=== PATIENT | male | born 1955 | race African-American/Black ===

== ENCOUNTER 2019-03-02 04:09 | Inpatient (IN) | payer MEDICARE, OTHER ==
[~2019-03-02] VITALS: Ht 185.4 cm; Wt 86.2 kg
[2019-03-02] MEDS ORDERED: Acetaminophen 500mg (ES) tab ORAL ONE (04:15)
--- NOTE | 2019-03-02 04:15 | NUR ---
ED Nurse Note: Patient was BIBA from [facility] due to fever, pt's temp 100.4 oral at bed side. Patient presented AAO x4, temp 100.4, HR 135, other VSS at this time, skin is warm to touch. Patient non ambulatory, continent, has preassure ulcer on his sacral area. Will continue to monitor.
[2019-03-02 04:16] VITALS: BP 140/90
[2019-03-02] MEDS ORDERED: CLARITIN10 M2 ORAL (04:24)
[2019-03-02] MEDS ORDERED: HYDRALAZINE HCL50 MG ORAL (04:24)
[2019-03-02] MEDS ORDERED: BISACODYL5 MG ORAL (04:24)
[2019-03-02] MEDS ORDERED: ACETAMINOPHEN325 M1 ORAL (04:24)
[2019-03-02] MEDS ORDERED: FLOMAX0.4 MG ORAL (04:24)
[2019-03-02] MEDS ORDERED: DOCUSATE SODIU100 MG ORAL (04:24)
[2019-03-02] MEDS ORDERED: FAMOTIDINE20 MG ORAL (04:24)
[2019-03-02] MEDS ORDERED: MILK OF MA400 MG/51 ORAL (04:24)
[2019-03-02] MEDS ORDERED: LYRICA75 M1 ORAL (04:24)
[2019-03-02] MEDS ORDERED: FLEET ENEMA133 ML RECTAL (04:24)
[2019-03-02] MEDS ORDERED: DUONEB 0.5-3(2.53 ML HHN (04:24)
[2019-03-02] MEDS ORDERED: ZOFRAN 4 MG4 MG/2 ML IV (04:24)
[2019-03-02] MEDS ORDERED: COZAAR50 MG ORAL (04:24)
--- NOTE | 2019-03-02 04:28 | Emergency Room Report ---
History of Present Illness General Chief Complaint: Fever Source: Patient Present Illness HPI This is 63-year-old senior living patient with a history of hypertension COPD. History of cocaine abuse in the past. He is bedbound. He presents with chief complaint of fever, nausea vomiting and diarrhea. Onset tonight. Per senior living note, fever was 104. Denies any medication. Vomiting is nonbloody nonbilious. Diarrhea is watery. Denies any other complaint. Allergies: Coded Allergies: No Known Allergies (Unverified , 03/02/19) Patient History Past Medical History: see triage record, old chart reviewed, HTN, COPD Past Surgical History: other Pertinent Family History: none Social History: Denies: smoking Immunizations: other Reviewed Nursing Documentation: PMH: Agreed; PSxH: Agreed Nursing Documentation-PMH Hx Hypertension: Yes Hx COPD: Yes - emphysema Review of Systems Constitutional: Reports: fever Gastrointestinal: Reports: abdominal pain, diarrhea, nausea, vomiting Physical Exam Vital Signs Date Time Temp Pulse Resp B/P (MAP) Pulse Ox O2 Delivery O2 Flow Rate FiO2 03/02/19 04:04 104.0 138 16 140/90 (107) 94 03/02/19 04:16 Nasal Cannula 2.0 Vitals with fever and tachycardia Sp02 EP Interpretation: reviewed, abnormal General Appearance: alert, mild distress, thin, Chronically Ill Head: normocephalic, atraumatic Eyes: bilateral eye PERRL, bilateral eye EOMI ENT: hearing grossly normal, normal pharynx Neck: full range of motion, supple, no meningismus Respiratory: chest non-tender, decreased breath sounds, rhonchi Cardiovascular #1: regular rate, rhythm, no murmur Gastrointestinal: non tender, no mass, no organomegaly, no bruit, non-distended , abnormal bowel sounds Musculoskeletal: back normal, other - Lower extremity showed some skin breakdown. On the left lower extremity laterally there is a fluctuant area measuring about 10 x 6 cm. He has abrasion to the volar aspect of both calves. Psychiatric: mood/affect normal Procedures Critical Care Time Critical Care Time Critical care is mandated in this patient who presented with severe sepsis. Patient require my urgent intervention to attenuate the risks of embolic collapse which may lead to cardiovascular collapse and . Critical care time is 35 minutes excluding any reportable procedure. Critical care time included evaluation, multiple reevaluation, looking at old charts, interpreting laboratory and diagnostic data, discussing case with patient and family and consultants, and charting. Additional Procedure Procedure Narrative Procedure: Needle aspiration Indication: Large fluctuant mass Description: Area cleaned with chlorhexidine. Local anesthetic 1% lidocaine without epinephrine injected. Using 18-gauge needle I aspirated the fluctuant area. It appeared to be an old liquefied hematoma. I sent this for culture. I aspirated about 100 cc. Patient tolerated procedure without any problem. No Complication. Medical Decision Making Diagnostic Impression: Primary Impression: Sepsis Qualified Codes: A41.9 - Sepsis, unspecified organism; R65.20 - Severe sepsis without septic shock Additional Impressions: Abdominal pain Qualified Codes: R10.84 - Generalized abdominal pain Nausea vomiting and diarrhea Traumatic hematoma of left lower leg with infection Qualified Codes: S80.12XA - Contusion of left lower leg, initial encounter; L08.9 - Local infection of the skin and subcutaneous tissue, unspecified COPD exacerbation Anemia Qualified Codes: D64.9 - Anemia, unspecified HCAP (healthcare-associated pneumonia) Colitis ER Course This patient presents with very high fever with abdominal pain with nausea vomiting diarrhea. He also appeared to have an infected hematoma to his left lower extremity. Chest x-ray shows COPD. CT scan abdomen pelvis pending. I covered him with Zosyn and Levaquin. He was admitted to [facility] last month and had diagnosis of UTI and inflammatory bowel disease. His troponin is intermediate. This may be a demand ischemia. Aspirin was given here. IV fluids given here. Patient felt better. Discussed the case with Dr. Martel for admission. Severe sepsis reevaluation Vital signs: Heart rate 121, pulse ox 97% on 2 L. Blood pressure 155/65 General appearance: Better mentation. Alert and oriented x4 Lungs: Good air movement, rhonchi Cardiovascular: Regular rate and rhythm Abdomen: Soft Extremity: No edema Skin: No mottling Lab Results Impression Labs with leukocytosis and lactic acidosis EKG Diagnostic Results Rate: normal Rhythm: other ST Segments: no acute changes Rhythm Strip Diag. Results EP Interpretation: yes Rate: 110 Rhythm: NSR, no PVC's, no ectopy Chest X-Ray Diagnostic Results Chest X-Ray Diagnostic Results : Chest X-Ray Ordered: Yes # of Views/Limited/Complete: 1 View Indication: Shortness of Breath EP Interpretation: Yes Interpretation: no effusion, no pneumothorax, other - copd Impression: Other - copd Electronically Signed by: Jeremiah Mcelroy MD CT/MRI/US Diagnostic Results CT/MRI/US Diagnostic Results : Imaging Test Ordered: CT abdomen pelvis Impression Read by radiologist. Chest show bibasilar atelectasis/infiltrates and emphysema. Severe diffuse wall thickening of colon. Bilateral hip effusion with chronic arthritic changes. Last Vital Signs Date Time Temp Pulse Resp B/P (MAP) Pulse Ox O2 Delivery O2 Flow Rate FiO2 03/02/19 04:16 104.0 16 140/90 94 03/02/19 04:16 138 Nasal Cannula 2.0 Status: improved Disposition: ADMITTED INPATIENT Condition: Serious Jeremiah Mcelroy MD Mar 02, 2019 04:28
[2019-03-02] MEDS ORDERED: Acetaminophen 650 MG SUPP RECTAL ONE (04:30)
[2019-03-02 04:39] LABS: HEMATOCRIT 32.8 % (42.0-52.0); HEMOGLOBIN 10.8 G/DL (14.2-18.0); MEAN CORPUSCULAR VOLUME 83 FL (80-99); PLATELET COUNT 263 K/UL (150-450); RED BLOOD COUNT 3.94 M/UL (4.70-6.10)
[2019-03-02 04:45] LABS: ANION GAP 12 mmol/L (5-15); BLOOD UREA NITROGEN 12 mg/dL (7-18); CALCIUM 8.7 MG/DL (8.5-10.1); CARBON DIOXIDE 22 MMOL/L (21-32); CHLORIDE 97 MMOL/L (98-107); CREATININE 1.1 MG/DL (0.55-1.30); POTASSIUM 3.6 MMOL/L (3.5-5.1); SODIUM 131 MMOL/L (136-145)
[2019-03-02 04:48] LABS: WHITE BLOOD COUNT 26.5 K/UL (4.8-10.8)
[2019-03-02 05:01] LABS: ALANINE AMINOTRANSFERASE 15 U/L (12-78); ALBUMIN 2.3 G/DL (3.4-5.0); ALBUMIN/GLOBULIN RATIO 0.4 (1.0-2.7); ALKALINE PHOSPHATASE 97 U/L (46-116); ASPARTATE AMINO TRANSFERASE 22 U/L (15-37); CKMB 0.5 NG/ML (0.0-3.6)
[2019-03-02 05:04] LABS: INR 1.2 (0.9-1.1)
[2019-03-02] MEDS ORDERED: Piperacillin/Tazobactam 3.375 GM in NS 110 ML IVPB ONE (05:15)
--- NOTE | 2019-03-02 05:16 | NUR ---
ED Nurse Note: Patient went for CT.
--- NOTE | 2019-03-02 05:40 | NUR ---
ED Nurse Note: Patient is back from CT, no acute disstress noticed.
--- NOTE | 2019-03-02 06:25 | Diagnostic Imaging Report ---
Indication: Abdominal pain Technique: Continuous helical transaxial imaging of the abdomen and pelvis was obtained from the lung bases to the pubic symphysis. No intravenous contrast was administered. Coronal 2-D reformats were also obtained. Automatic Exposure Control was utilized. Total Dose length Product (DLP): 934.[address] Dose Index Volume (CTDIvol): 16.8 mGy Comparison: none Findings: Significant artifact limits evaluation. The lung bases notable for posterior basal atelectasis. Patchy groundglass opacities also noted nonspecific. Trace pericardial fluid demonstrated. No obvious hydronephrosis or stones identified. No obvious free fluid identified. Question of gallstones. Aortoiliac calcifications are present. There is thickening of the wall of the colon especially noted on the right side involving the ascending colon and cecum. Findings suspicious for colitis. Correlate clinically. There is thickening of the wall the urinary bladder. 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 Anasarca noted. IMPRESSION: Limited evaluation due to technical artifacts. Suspected colitis with the thickening of the wall the colon. Correlate clinically. Thickening of the wall the urinary bladder. Correlate for cystitis. Other findings as above. [facility] has communicated the preliminary results to the Emergency Department. Their findings are largely concordant with this report. The CT scanner at [facility] is accredited by the [employer] and the scans are performed using dose optimization techniques as appropriate to a performed exam including Automatic Exposure control.
[2019-03-02 06:29] LABS: APPEARANCE,URINE SLIGHTLY CLOUDY; BILIRUBIN, URINE NEGATIVE (NEGATIVE); GLUCOSE, URINE (UA) NEGATIVE (NEGATIVE); KETONES,URINE 1+ (NEGATIVE); LEUKOCYTE ESTERASE ,URINE 3+ (NEGATIVE); NITRITE,URINE POSITIVE (NEGATIVE); PH,URINE 6 (4.5-8.0); PROTEIN,URINE 2+ (NEGATIVE); UROBILINOGEN,URINE 1 MG/DL (0.0-1.0)
[2019-03-02 06:37] LABS: COLOR,URINE YELLOW
[2019-03-02 06:55] VITALS: BP 126/67
--- NOTE | 2019-03-02 06:55 | NUR ---
ED Nurse Note: Patient was admited to Tele unit due to severe sepsis. Patient was transfered to the unit via gurney, by ACLS protocol, with all belongings. Patient AAO x4, VSS at this time, skin is dry warm to touch. Patient's preassure ulcer (on sacral area) , was taken picture and uploaded in the computer.
--- NOTE | 2019-03-02 07:00 | NUR ---
NURSE NOTES: Recieved report from ANJEL Casper. Pt is SR, stable VS, denies pain.
--- NOTE | 2019-03-02 07:30 | NUR ---
HAND-OFF: Report given to ANJEL Ewing.
[2019-03-02 07:51] VITALS: BP 128/80
--- NOTE | 2019-03-02 07:53 | NUR ---
NURSE NOTES: pt awake alert, no distress. call liht within reach. paged dr Martel for admission orders. awaiting call back received pt with no dressing on sacral area stage 2, dressing applied, hydrogel and optifoam, will monitor.
[2019-03-02] MEDS ORDERED: HYDROcodone/Acetamin 5/325 tab ORAL PRN (08:15)
[2019-03-02] MEDS ORDERED: D5 1/2NS 1,000 ML IV SCH (09:00)
[2019-03-02] MEDS: Cefepime HCl 1 GM in D5W 55 ML IVPB SCH ×2 (10:20→20:30)
[2019-03-02 12:00] VITALS: BP 124/60
--- NOTE | 2019-03-02 12:17 | Consultation ---
History of Present Illness General Chief Complaint: Fever Present Illness HPI 63-year-old with a history of hypertension COPD, halfway resident, cocaine abuse, bedbound presented to ED with chief complaint of fever, nausea vomiting and diarrhea for one day. His fever was 104 in the halfway. He had also vomiting, nonbloody nonbilious. Diarrhea is watery. His troponin was positive and he is admitted to telemetry for further management. Allergies: Coded Allergies: No Known Allergies (Unverified , 03/02/19) Medication History Scheduled Bisacodyl* (Dulcolax*), 10 MG ORAL ONCE, (Reported) Docusate Sodium* (Docusate Sodium*), 100 MG ORAL TWICE A DAY, (Reported) Famotidine* (Pepcid 20mg tablet*), 20 MG ORAL TWICE A DAY, (Reported) Hydralazine Hcl* (Hydralazine Hcl*), 50 MG ORAL EVERY 8 HOURS, (Reported) Loratadine (Claritin), 10 MG ORAL DAILY, (Reported) Losartan Potassium* (Cozaar*), 100 MG ORAL DAILY, (Reported) Magnesium Hydroxide* (Milk Of Magnesia*), 30 ML ORAL PRN, (Reported) Na Phos,M-B/Na Phos,Di-Ba* (Fleet Enema*), 133 ML RECTAL DAILY, (Reported) Pregabalin* (Lyrica*), 50 MG ORAL THREE TIMES A DAY, (Reported) Tamsulosin HCl (Flomax), 0.4 MG ORAL DAILY, (Reported) Scheduled PRN Acetaminophen* (Acetaminophen 325MG Tablet*), 325 MG ORAL Q6H PRN for Pain Scale (3-5), (Reported) Ondansetron* (Zofran*), 4 MG IV Q8H PRN for Nausea & Vomiting, (Reported) Miscellaneous Medications Ipratropium/Albuterol Sulfate (DuoNeb 0.5-3(2.5)mg/3ml), 3 ML HHN, (Reported) Patient History Healthcare decision maker Resuscitation status Advanced Directive on File Past Medical/Surgical History Past Medical/Surgical History: (1) COPD (chronic obstructive pulmonary disease) (2) BPH (benign prostatic hyperplasia) (3) Hypertension (4) Colitis Review of Systems All Other Systems: negative except mentioned in HPI Physical Exam General Appearance: WD/WN Lines, tubes and drains: peripheral HEENT: normocephalic, atraumatic, anicteric Neck: non-tender, normal alignment Respiratory/Chest: chest wall non-tender, lungs clear Cardiovascular/Chest: normal peripheral pulses, normal rate Abdomen: normal bowel sounds, non tender Genitourinary/Rectal: normal genital exam, normal rectal exam Extremities: normal range of motion Skin Exam: normal pigmentation Neurologic: inspector plug seam II-XII grossly normal Last 24 Hour Vital Signs Date Time Temp Pulse Resp B/P (MAP) Pulse Ox O2 Delivery O2 Flow Rate FiO2 03/02/19 08:59 101 03/02/19 07:51 98.2 117 18 128/80 (96) 98 03/02/19 06:55 99.0 105 16 126/67 99 Nasal Cannula 2.0 03/02/19 06:55 99.0 105 16 126/67 99 Nasal Cannula 2.0 03/02/19 05:02 99.0 03/02/19 04:16 104.0 16 140/90 94 03/02/19 04:16 138 16 Nasal Cannula 2.0 03/02/19 04:04 104.0 138 16 140/90 (107) 94 Laboratory Tests Test 03/02/19 04:10 03/02/19 05:45 03/02/19 06:15 03/02/19 11:55 White Blood Count 26.5 K/UL (4.8-10.8) *H Red Blood Count 3.94 M/UL (4.70-6.10) L Hemoglobin 10.8 G/DL (14.2-18.0) L Hematocrit 32.8 % (42.0-52.0) L Mean Corpuscular Volume 83 FL (80-99) Mean Corpuscular Hemoglobin 27.4 PG (27.0-31.0) Mean Corpuscular Hemoglobin Concent 32.8 G/DL (32.0-36.0) Red Cell Distribution Width 15.0 % (11.6-14.8) H Platelet Count 263 K/UL (150-450) Mean Platelet Volume 6.8 FL (6.5-10.1) Neutrophils (%) (Auto) % (45.0-75.0) Lymphocytes (%) (Auto) % (20.0-45.0) Monocytes (%) (Auto) % (1.0-10.0) Eosinophils (%) (Auto) % (0.0-3.0) Basophils (%) (Auto) % (0.0-2.0) Differential Total Cells Counted 100 Neutrophils % (Manual) 69 % (45-75) Lymphocytes % (Manual) 20 % (20-45) Monocytes % (Manual) 11 % (1-10) H Eosinophils % (Manual) 0 % (0-3) Basophils % (Manual) 0 % (0-2) Band Neutrophils 0 % (0-8) Platelet Estimate Adequate Platelet Morphology Normal Prothrombin Time 12.7 SEC (9.30-11.50) H Prothromb Time International Ratio 1.2 (0.9-1.1) H Activated Partial Thromboplast Time 32 SEC (23-33) Sodium Level 131 MMOL/L (136-145) L Potassium Level 3.6 MMOL/L (3.5-5.1) Chloride Level 97 MMOL/L (98-107) L Carbon Dioxide Level 22 MMOL/L (21-32) Anion Gap 12 mmol/L (5-15) Blood Urea Nitrogen 12 mg/dL (7-18) Creatinine 1.1 MG/DL (0.55-1.30) Estimat Glomerular Filtration Rate > 60 mL/min (>60) Glucose Level 121 MG/DL (74-106) H Lactic Acid Level 4.20 mmol/L (0.4-2.0) H 1.50 mmol/L (0.66-2.22) Calcium Level 8.7 MG/DL (8.5-10.1) Total Bilirubin 1.0 MG/DL (0.2-1.0) Aspartate Amino Transf (AST/SGOT) 22 U/L (15-37) Alanine Aminotransferase (ALT/SGPT) 15 U/L (12-78) Alkaline Phosphatase 97 U/L (46-116) Creatine Kinase MB 0.5 NG/ML (0.0-3.6) Troponin I 0.145 ng/mL (0.000-0.056) Pending Total Protein 8.3 G/DL (6.4-8.2) H Albumin 2.3 G/DL (3.4-5.0) L Globulin 6.0 g/dL Albumin/Globulin Ratio 0.4 (1.0-2.7) L Urine Color Yellow Urine Appearance Slightly cloudy Urine pH 6 (4.5-8.0) Urine Specific [place] 1.015 (1.005-1.035) Urine Protein 2+ (NEGATIVE) H Urine Glucose (UA) Negative (NEGATIVE) Urine Ketones 1+ (NEGATIVE) H Urine Blood 4+ (NEGATIVE) H Urine Nitrite Positive (NEGATIVE) H Urine Bilirubin Negative (NEGATIVE) Urine Urobilinogen 1 MG/DL (0.0-1.0) H Urine Leukocyte Esterase 3+ (NEGATIVE) H Urine RBC 2-4 /HPF (0 - 0) H Urine WBC 30-40 /HPF (0 - 0) H Urine Squamous Epithelial Cells Occasional /LPF Urine Bacteria Moderate /HPF (NONE) H Microbiology Date/Time Source Procedure Growth Status 03/02/19 04:34 Other(Specify in comment) Gram Stain - Final Resulted 03/02/19 04:34 Other(Specify in comment) Wound Culture Pending Resulted 03/02/19 04:34 Rectum Received Height (Feet): 6 Height (Inches): 1.00 Weight (Pounds): 200 Medications Current Medications Medications (Trade) Dose Ordered Sig/Deborah Route PRN Reason Start Time Stop Time Status Last Admin Dose Admin Acetaminophen (Tylenol) 650 mg Q4H PRN ORAL Mild Pain/Temp > 100.5 03/02/19 08:15 04/01/19 08:14 Acetaminophen/ Hydrocodone Bitart ([place] 5/325) 1 tab Q4H PRN ORAL Moderate Pain (Pain Scale 4-6) 03/02/19 08:15 03/09/19 08:14 Cefepime HCl 1 gm/ Dextrose 55 ml @ 110 mls/hr EVERY 12 HOURS IVPB 03/02/19 09:00 03/09/19 08:59 03/02/19 10:20 Dextrose/Sodium Chloride 1,000 ml @ 100 mls/hr Q10H IV 03/02/19 09:00 04/01/19 08:59 03/02/19 09:05 Metronidazole 100 ml @ 100 mls/hr Q8HR IVPB 03/02/19 14:00 03/09/19 13:59 Morphine Sulfate (Morphine Sulfate) 2 mg Q4H PRN IVP Severe Pain (Pain Scale 7-10) 03/02/19 08:15 03/09/19 08:14 Ondansetron HCl (Zofran) 4 mg Q4H PRN IVP Nausea & Vomiting 03/02/19 08:15 04/01/19 08:14 Assessment/Plan Problem List: (1) Sepsis ICD Codes: A41.9 - Sepsis, unspecified organism SNOMED: 60738273 Qualifiers: Qualified Codes: A41.9 - Sepsis, unspecified organism; R65.20 - Severe sepsis without septic shock (2) COPD (chronic obstructive pulmonary disease) ICD Codes: J44.9 - Chronic obstructive pulmonary disease, unspecified SNOMED: 63709938 (3) Nausea vomiting and diarrhea ICD Codes: R11.2 - Nausea with vomiting, unspecified; R19.7 - Diarrhea, unspecified SNOMED: 2685647, 363619571 (4) HCAP (healthcare-associated pneumonia) ICD Codes: J18.9 - Pneumonia, unspecified organism SNOMED: 166868476, 854070164 (5) BPH (benign prostatic hyperplasia) ICD Codes: N40.0 - Benign prostatic hyperplasia without lower urinary tract symptoms SNOMED: 806045189 (6) Hypertension ICD Codes: I10 - Essential (primary) hypertension SNOMED: 54721083 Assessment/Plan: adams culture iv abx check electrolytes decrease IV fluids anemia w/u pt/ot wound care Rico Chavarria MD Mar 02, 2019 12:17
--- NOTE | 2019-03-02 12:48 | NUR ---
NURSE NOTES: left message to dr Salas re elevated troponin , patient asymptomatic, awaiting response. also notified dr Martel Addendum: 03/02/19 at 1402 by RODRIGUE GREENFIELD RN dr Salas acknowledged the page, no new orders were given
--- NOTE | 2019-03-02 13:21 | NUR ---
CASE MANAGEMENT:REVIEW 63 YR OLD MALE BIBA FROM [facility] CC: FEVER 104. NAUSEA. DIARRHEA SI: SEPSIS. PNA 014.0 138 16 140/90 94% ON RA WBC+26.5 LACTIC ACID+4.2 TROPONIN(+) 0.145 IS: 2L NS BOLUS TYLENOL PO AND NH IV ZOFRAN IV ZOSYN IV LEVAQUIN ASA PO CT ABD/PELVIS CXR BLOOD CX : TELEMETRY STATUS INTERQUAL CRITERIA MET
--- NOTE | 2019-03-02 13:54 | NUR ---
NURSE NOTES:WOUND CARE NOTES:Pt presented on admission with multiple pressure injuries. Blood blisters to ezequiel R tibia and medial L tibia. Full Thickness pressure injury Sacrum . Base of wound 60% biofilm,40%viable. Edges are macerated bordered by black and fluctuant base with additional wounds at R sacrum. No odor or exudate noted. Pt complained of pain at site when in supine. Rigidity noted to both lower extremities and pt heels are in continuously in contact. DTPI noted to medial R heel . Base of wound with purple with maroon borders and fluctuant at base (L)4cm x (W)4cm .Periwound R heel is boggy but blanchable. DTPI medial L heel . Base of wound is maroon with scattered purple areas and is fluctuant at base. Periwound L heel is boggy but blanchable. Tx.Plan: Cleanse Sacral wound with Saline. Apply Therahoney. Apply Moisture Barrier periwound. Cover with Optifoam drsg every 3 days and prn. Apply Cavilon Skin Barrier to blood blisters R and L tibia. Cover each wound with Optifoam drsg. Change every 7 days and prn. Apply Cavilon Skin Barrier to both heels. Cover each heel with Optifoam drsg. Change every 7 days and prn. APM/KRISTI Mattress overlay. Reposition at least every 2hours or as tolerated. Place pillow between lower ext to keep Heels apart. Off-load heels with pillow.
[2019-03-02] MEDS: D5 1/2NS 1,000 ML IV SCH ×2 (14:50→21:21)
--- NOTE | 2019-03-02 15:00 | Cardiology Report ---
APPROVED REPORT EXAM: Two-dimensional and M-mode echocardiogram with Doppler and color Doppler. INDICATION CAD M-Mode DIMENSIONS IVSd0.9 (0.7-1.1cm)Left Atrium (MM)4.1 (1.6-4.0cm) LVDd4.1 (3.5-5.6cm)Aortic Root3.7 (2.0-3.7cm) PWd1.2 (0.7-1.1cm)Aortic Cusp Exc.1.9 (1.5-2.0cm) LVDs2.9 (2.5-4.0cm) PWs1.7 cm Normal left ventricular chamber size, systolic function and wall motion. Left ventricular ejection fraction estimated to be 60 %. No evidence of left ventricular hypertrophy. No evidence of pericardial effusion. Left atrial chamber size is within normal limits. Moderate right atrial enlargement. Mild right ventricular enlargement. Focal aortic valve sclerosis with adequate cusp excursion. Mildly thickened mitral valve leaflets with normal excursion. Mitral annulus and aortic root calcification. Pulmonic valve not well visualized. Normal tricuspid valve structure. IVC at normal size with physiologic collapse. A color flow and spectral Doppler study was performed and revealed: Trace aortic regurgitation. Trace mitral regurgitation. Mitral diastolic velocities suggest reduced left ventricular relaxation c/w mild LV diastolic dysfunction (Grade I ). Trace to mild tricuspid regurgitation. Tricuspid systolic velocities suggests peak right ventricular systolic pressure of 34 mmHg.
[2019-03-02 15:08] LABS: LACTATE DEHYDROGENASE 163 U/L (81-234)
--- NOTE | 2019-03-02 15:14 | Consultation ---
History of Present Illness General Date patient seen: Mar 02, 2019 Reason for Hospitalization: Fever Present Illness HPI This is a pleasant 63-year-old male who is bedbound and care dependent [facility] resident that presented with fevers and abnormal labs. On admission identified to have fever T-max 104 and significant leukocytosis and lactic acidosis. CT abdomen pelvis performed identifying significant colitis and cystitis but limited based on noncontrast CT with motion artifact. On examination abdominal pain. Surgery called to assist with care and management. Patient seen, patient evaluated, chart reviewed. Patient states he does not have any abdominal pain at baseline but upon palpation identifies significant left lower quadrant tenderness 6 out of 10 with no rebound and voluntary guarding. Currently no nausea vomiting fever chills. Lactic acidosis improving. On clear liquid diet. States last bowel movement yesterday normal. Allergies: Coded Allergies: No Known Allergies (Unverified , 03/02/19) Medication History Scheduled Bisacodyl* (Dulcolax*), 10 MG ORAL ONCE, (Reported) Docusate Sodium* (Docusate Sodium*), 100 MG ORAL TWICE A DAY, (Reported) Famotidine* (Pepcid 20mg tablet*), 20 MG ORAL TWICE A DAY, (Reported) Hydralazine Hcl* (Hydralazine Hcl*), 50 MG ORAL EVERY 8 HOURS, (Reported) Loratadine (Claritin), 10 MG ORAL DAILY, (Reported) Losartan Potassium* (Cozaar*), 100 MG ORAL DAILY, (Reported) Magnesium Hydroxide* (Milk Of Magnesia*), 30 ML ORAL PRN, (Reported) Na Phos,M-B/Na Phos,Di-Ba* (Fleet Enema*), 133 ML RECTAL DAILY, (Reported) Pregabalin* (Lyrica*), 50 MG ORAL THREE TIMES A DAY, (Reported) Tamsulosin HCl (Flomax), 0.4 MG ORAL DAILY, (Reported) Scheduled PRN Acetaminophen* (Acetaminophen 325MG Tablet*), 325 MG ORAL Q6H PRN for Pain Scale (3-5), (Reported) Ondansetron* (Zofran*), 4 MG IV Q8H PRN for Nausea & Vomiting, (Reported) Miscellaneous Medications Ipratropium/Albuterol Sulfate (DuoNeb 0.5-3(2.5)mg/3ml), 3 ML HHN, (Reported) Patient History Limited by: medical condition History Provided By: Patient, Medical Record, PMD Healthcare decision maker Resuscitation status Full Code Advanced Directive on File Past Medical/Surgical History Past Medical/Surgical History: (1) HCAP (healthcare-associated pneumonia) (2) Nausea vomiting and diarrhea (3) Colitis (4) COPD exacerbation (5) Sepsis (6) Hypertension (7) COPD (chronic obstructive pulmonary disease) (8) BPH (benign prostatic hyperplasia) Review of Systems Review of Symptoms General ROS: no weight loss or fever Psychological ROS: no depression or mood changes, no memory loss Ophthalmic ROS: no visual changes or eye irritation ENT ROS: no nasal congestion, hearing loss, dizziness Allergy and Immunology ROS: no allergic symptoms or urticaria Hematological and Lymphatic ROS: no swollen glands, unusual bleeding or bruising Endocrine ROS: no polyuria, polydipsia, weight changes, temperature intolerance Respiratory ROS: no cough, shortness of breath, or wheezing Cardiovascular ROS: no chest pain or dyspnea on exertion Gastrointestinal ROS: denies abdominal pain, bright red blood in stool. Musculoskeletal ROS: no myalgias or arthralgias Neurological ROS: no TIA or stroke symptoms Dermatological ROS: no new or changing skin lesions, rashes or pruritis Physical Exam Physical Exam General appearance: alert, cooperative, no distress, appears stated age Head: Normocephalic, without obvious abnormality, atraumatic Eyes: conjunctivae/corneas clear. PERRL, EOM's intact. Fundi benign Throat: Lips, mucosa, and tongue normal. Teeth and gums normal Neck: supple, symmetrical, trachea midline, no adenopathy, thyroid: not enlarged, symmetric, no tenderness/mass/nodules, no carotid bruit and no JVD Lungs: clear to auscultation bilaterally Heart: regular rate and rhythm, S1, S2 normal, no murmur, click, rub or gallop Abdomen: soft, LLQ tender. Bowel sounds decreased. No masses, no organomegaly Extremities: extremities normal, atraumatic, no cyanosis or edema Pulses: 2+ and symmetric Skin: Skin color, texture, turgor normal. No rashes or lesions Neurologic: Grossly normal Last 24 Hour Vital Signs Date Time Temp Pulse Resp B/P (MAP) Pulse Ox O2 Delivery O2 Flow Rate FiO2 03/02/19 14:33 Room Air 03/02/19 14:29 122 03/02/19 12:00 98.2 122 18 124/60 (81) 98 03/02/19 08:59 101 03/02/19 07:51 98.2 117 18 128/80 (96) 98 03/02/19 06:55 99.0 105 16 126/67 99 Nasal Cannula 2.0 03/02/19 06:55 99.0 105 16 126/67 99 Nasal Cannula 2.0 03/02/19 05:02 99.0 03/02/19 04:16 104.0 16 140/90 94 03/02/19 04:16 138 16 Nasal Cannula 2.0 03/02/19 04:04 104.0 138 16 140/90 (107) 94 Intake and Output 03/01/19 03/02/19 19:00 07:00 # Voids 1 Laboratory Tests Test 03/02/19 04:10 03/02/19 05:45 03/02/19 06:15 03/02/19 11:55 White Blood Count 26.5 K/UL (4.8-10.8) *H Red Blood Count 3.94 M/UL (4.70-6.10) L Hemoglobin 10.8 G/DL (14.2-18.0) L Hematocrit 32.8 % (42.0-52.0) L Mean Corpuscular Volume 83 FL (80-99) Mean Corpuscular Hemoglobin 27.4 PG (27.0-31.0) Mean Corpuscular Hemoglobin Concent 32.8 G/DL (32.0-36.0) Red Cell Distribution Width 15.0 % (11.6-14.8) H Platelet Count 263 K/UL (150-450) Mean Platelet Volume 6.8 FL (6.5-10.1) Neutrophils (%) (Auto) % (45.0-75.0) Lymphocytes (%) (Auto) % (20.0-45.0) Monocytes (%) (Auto) % (1.0-10.0) Eosinophils (%) (Auto) % (0.0-3.0) Basophils (%) (Auto) % (0.0-2.0) Differential Total Cells Counted 100 Neutrophils % (Manual) 69 % (45-75) Lymphocytes % (Manual) 20 % (20-45) Monocytes % (Manual) 11 % (1-10) H Eosinophils % (Manual) 0 % (0-3) Basophils % (Manual) 0 % (0-2) Band Neutrophils 0 % (0-8) Platelet Estimate Adequate Platelet Morphology Normal Prothrombin Time 12.7 SEC (9.30-11.50) H Prothromb Time International Ratio 1.2 (0.9-1.1) H Activated Partial Thromboplast Time 32 SEC (23-33) Sodium Level 131 MMOL/L (136-145) L Potassium Level 3.6 MMOL/L (3.5-5.1) Chloride Level 97 MMOL/L (98-107) L Carbon Dioxide Level 22 MMOL/L (21-32) Anion Gap 12 mmol/L (5-15) Blood Urea Nitrogen 12 mg/dL (7-18) Creatinine 1.1 MG/DL (0.55-1.30) Estimat Glomerular Filtration Rate > 60 mL/min (>60) Glucose Level 121 MG/DL (74-106) H Lactic Acid Level 4.20 mmol/L (0.4-2.0) H 1.50 mmol/L (0.66-2.22) Calcium Level 8.7 MG/DL (8.5-10.1) Total Bilirubin 1.0 MG/DL (0.2-1.0) Aspartate Amino Transf (AST/SGOT) 22 U/L (15-37) Alanine Aminotransferase (ALT/SGPT) 15 U/L (12-78) Alkaline Phosphatase 97 U/L (46-116) Creatine Kinase MB 0.5 NG/ML (0.0-3.6) Troponin I 0.145 ng/mL (0.000-0.056) 0.361 ng/mL (0.000-0.056) Total Protein 8.3 G/DL (6.4-8.2) H Albumin 2.3 G/DL (3.4-5.0) L Globulin 6.0 g/dL Albumin/Globulin Ratio 0.4 (1.0-2.7) L Carcinoembryonic Antigen Pending Urine Color Yellow Urine Appearance Slightly cloudy Urine pH 6 (4.5-8.0) Urine Specific [place] 1.015 (1.005-1.035) Urine Protein 2+ (NEGATIVE) H Urine Glucose (UA) Negative (NEGATIVE) Urine Ketones 1+ (NEGATIVE) H Urine Blood 4+ (NEGATIVE) H Urine Nitrite Positive (NEGATIVE) H Urine Bilirubin Negative (NEGATIVE) Urine Urobilinogen 1 MG/DL (0.0-1.0) H Urine Leukocyte Esterase 3+ (NEGATIVE) H Urine RBC 2-4 /HPF (0 - 0) H Urine WBC 30-40 /HPF (0 - 0) H Urine Squamous Epithelial Cells Occasional /LPF Urine Bacteria Moderate /HPF (NONE) H Iron Level Pending Unsaturated Iron Binding Pending Lactate Dehydrogenase Pending Vitamin B12 Level Pending Folate Pending Microbiology Date/Time Source Procedure Growth Status 03/02/19 04:34 Other(Specify in comment) Gram Stain - Final Resulted 03/02/19 04:34 Other(Specify in comment) Wound Culture Pending Resulted 03/02/19 04:34 Rectum Received Height (Feet): 6 Height (Inches): 1.00 Weight (Pounds): 200 Medications Current Medications Medications (Trade) Dose Ordered Sig/Deborah Route PRN Reason Start Time Stop Time Status Last Admin Dose Admin Acetaminophen (Tylenol) 650 mg Q4H PRN ORAL Mild Pain/Temp > 100.5 03/02/19 08:15 04/01/19 08:14 Acetaminophen/ Hydrocodone Bitart ([place] 5/325) 1 tab Q4H PRN ORAL Moderate Pain (Pain Scale 4-6) 03/02/19 08:15 03/09/19 08:14 Cefepime HCl 1 gm/ Dextrose 55 ml @ 110 mls/hr EVERY 12 HOURS IVPB 03/02/19 09:00 03/09/19 08:59 03/02/19 10:20 Dextrose/Sodium Chloride 1,000 ml @ 50 mls/hr Q20H IV 03/03/19 09:00 04/01/19 08:59 03/02/19 14:50 Metronidazole 100 ml @ 100 mls/hr Q8HR IVPB 03/02/19 14:00 03/09/19 13:59 03/02/19 14:07 Morphine Sulfate (Morphine Sulfate) 2 mg Q4H PRN IVP Severe Pain (Pain Scale 7-10) 03/02/19 08:15 03/09/19 08:14 Ondansetron HCl (Zofran) 4 mg Q4H PRN IVP Nausea & Vomiting 11/15/19 08:15 04/01/19 08:14 Assessment/Plan Problem List: (1) Decubitus skin ulcer Assessment & Plan: Pt presented on admission with multiple pressure injuries. Blood blisters to ezequiel R tibia and medial L tibia. Full Thickness stage 3 pressure injury Sacrum . Base of wound 60% biofilm,40% viable. Edges are macerated bordered by black and fluctuant base with additional wounds at R sacrum. No odor or exudate noted. Pt complained of pain at site when in supine. Rigidity noted to both lower extremities and pt heels are in continuously in contact. DTPI noted to medial R heel . Base of wound with purple with maroon borders and fluctuant at base (L)4cm x (W)4cm .Periwound R heel is boggy but blanchable. DTPI medial L heel . Base of wound is maroon with scattered purple areas and is fluctuant at base. Periwound L heel is boggy but blanchable. Tx.Plan: Cleanse Sacral wound with Saline. Apply Therahoney. Apply Moisture Barrier periwound. Cover with Optifoam drsg every 3 days and prn. Apply Cavilon Skin Barrier to blood blisters R and L tibia. Cover each wound with Optifoam drsg. Change every 7 days and prn. Apply Cavilon Skin Barrier to both heels. Cover each heel with Optifoam drsg. Change every 7 days and prn. APM/KRISTI Mattress overlay. Reposition at least every 2hours or as tolerated. Place pillow between lower ext to keep Heels apart. Off-load heels with pillow. ICD Codes: L89.90 - Pressure ulcer of unspecified site, unspecified stage SNOMED: 226146327 (2) Colitis Assessment & Plan: Findings: Significant artifact limits evaluation. The lung bases notable for posterior basal atelectasis. Patchy groundglass opacities also noted nonspecific. Trace pericardial fluid demonstrated. No obvious hydronephrosis or stones identified. No obvious free fluid identified. Question of gallstones. Aortoiliac calcifications are present. There is thickening of the wall of the colon especially noted on the right side involving the ascending colon and cecum. Findings suspicious for colitis. Correlate clinically. There is thickening of the wall the urinary bladder. 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 Anasarca noted. IMPRESSION: Limited evaluation due to technical artifacts. Suspected colitis with the thickening of the wall the colon. Correlate clinically. Thickening of the wall the urinary bladder. Correlate for cystitis. ICD Codes: K52.9 - Noninfective gastroenteritis and colitis, unspecified SNOMED: 18376481, [id number] (3) Sepsis Assessment & Plan: febrile t max 104 - resolving leukocytosis lactic acidosis - resolving abd pain LLQ tender on exam CT with colitis likely etiology of sepsis pending blood cultures ABX as per ID will follow with exam and recs okay for clear liquids but do not advance diet until pain improved ICD Codes: A41.9 - Sepsis, unspecified organism SNOMED: 60544071 Qualifiers: Qualified Codes: A41.9 - Sepsis, unspecified organism; R65.20 - Severe sepsis without septic shock (4) Nausea vomiting and diarrhea ICD Codes: R11.2 - Nausea with vomiting, unspecified; R19.7 - Diarrhea, unspecified SNOMED: 7934293, [id number] César Romero Mar 02, 2019 15:14
[2019-03-02 15:19] VITALS: BP 119/66
[2019-03-02 15:33] LABS: INR 1.2 (0.9-1.1)
[2019-03-02 15:34] LABS: % IRON SATURATION 8 % (15-50); IRON 11 ug/dL (50-175); TOTAL IRON BINDING CAPACITY 144 ug/dL (250-450)
--- NOTE | 2019-03-02 15:58 | History & Physical ---
History and Physical History & Physicial Oscar Martel MD Mar 02, 2019 15:58
--- NOTE | 2019-03-02 18:13 | NUR ---
NURSE NOTES: spoke w dr Martel during rounds to continue home bp meds, per md not at this time.
--- NOTE | 2019-03-02 19:10 | NUR ---
HAND-OFF: Report given to NAVDEEP HOBBS.
--- NOTE | 2019-03-02 19:15 | NUR ---
NURSE NOTES: Received patient from ANJEL Ewing. Patient resting in bed comfortably asleep. No signs of distress, shortness of breath, or pain noted. Patient able to make needs known. IV site checked, intact and patent, no signs of bleeding, redness, or infiltration, 50 mL/hr of D5 0.45% NS running. Bed in lowest position, brakes on, side rails up x3, and call light within reach. Will continue with plan of care.
--- NOTE | 2019-03-02 19:15 | History and Physical Report ---
DATE OF ADMISSION: 03/02/2019 CHIEF COMPLAINT: Abdominal pain associated with nausea and vomiting, diarrhea, fever. HISTORY OF PRESENT ILLNESS: This is a 63-year-old gentleman with past medical history significant hypertension, COPD, residential resident, history of cocaine abuse, mostly bedbound, who presented to the emergency room from residential after he was noted to have fever, nausea, vomiting, diarrhea for 24 hours. The patient had a fever of 104 at the nursing facility with nonbloody, nonbilious emesis, watery diarrhea got progressively worsening. Shortly after initial evaluation in the emergency room, the patient was noted to have elevated troponin of 0.[address] and confirmed colitis on CT of the abdomen pelvic and subsequently the patient was admitted to telemetry with elevation in troponin, possible ST elevation myocardial infarction versus demand ischemia as well as abdominal pain, nausea and vomiting most likely secondary to colitis and sepsis. PAST MEDICAL HISTORY/PAST SURGICAL HISTORY: As above history of hypertension, COPD, BPH, history of cocaine abuse, residential resident with the bedbound. MEDICATIONS: Medication at residential significant for docusate, Colace, Pepcid, hydralazine, loratadine, losartan, mag oxide, Fleet enema, Lyrica, Flomax. ALLERGIES: No known drug allergies. SOCIAL HISTORY: Denies any smoking, alcohol, or drugs at this time. However, the patient had a history of cocaine abuse in the past. REVIEW OF SYSTEMS: Mostly as above denies any dysuria, frequency, complained about abdominal pain, complained of nausea and vomiting. Denies any hemoptysis. Denies any bright red blood per rectum. Denies any fall or head trauma. PHYSICAL EXAMINATION: VITAL SIGNS: On admission from the ER is significant for temperature 104.0, pulse of 138, respirations 16, and blood pressure 140/90. GENERAL: The patient is awake, responsive, no acute distress, but chronically cachectic and malnutrition. HEAD AND NECK: Pupils are equal and reactive to light. Extraocular movements intact. NECK: Supple. No JVD. LUNGS: Good air entry. No wheezing or rales. Decreased in bases. HEART: S1 and S2. Distant heart sounds. No murmur or gallops. ABDOMEN: Soft, mildly distended. No rebound tenderness. Generalized tenderness. RECTAL: Refused and deferred. GENITOURINARY: Refused and deferred. PSYCHIATRIC: Mood and affect intact. Gait was not assessed due to the patient's status. SKIN: Full thickness stage III pressure ulcer in the sacrum was noted presented on admission. NEUROLOGIC: Cranial nerves II through XII grossly intact. The patient moving all extremities. Lower extremities weaker than upper extremity and tender to touch in the lower extremity. LABORATORY AND DIAGNOSTIC DATA: Laboratory on admission from the ER, sodium 131, potassium 3.6, chloride 97, bicarb 22, BUN 12, creatinine 1.0, GFR greater than 60. Glucose is 121. Troponin 0.145. Total protein is 8.3, albumin is 2.3. PT of 12, INR 1.2, and PTT of 32. WBC of 26, hemoglobin 10.8, hematocrit 32, and platelets is 263. Urinalysis +2 protein, +4 blood, +1 ketone, positive nitrite, +2 leukocytes, [address] of the abdomen and pelvis noted, the patient has limited evaluation due to the technical artifact, suspected colitis with thickening of the wall of the colon, thickening of the wall of the urinary bladder, gallstone, aortoiliac calcification. ASSESSMENT: 1. Mild elevation of troponin, possible acute myocardial infarction versus demand ischemia. 2. Severe dehydration with hypovolemia. 3. Anemia most likely secondary to the intra-abdominal infection. 4. Colitis. 5. BPH. 6. Hypertension presently hypotensive. 7. COPD. 8. Hyponatremia. 9. Pressure ulcer stage III sacrum present on admission. 10. Acute urinary tract infection. PLAN: Admit the patient to monitor unit. We will follow up serial cardiac enzymes. Start the patient on broad-spectrum antibiotic with cefepime and Flagyl. We will follow up with Dr. Chavarria from Pulmonary Critical Care and Dr. Romero from General surgery. Monitor laboratory as well as cultures. Code status Full code. DVT prophylaxis with heparin subcutaneous. Followup with wound care of the sacral ulcer. Oscar Martel M.D. DR: J Carlos JOB#: [id number] CC:
[2019-03-02 20:00] VITALS: BP 110/52
[2019-03-02] MEDS: Morphine Sulfate 2mg/ml Inj(IV/IM USE ONLY) IVP PRN (20:30)
[2019-03-03] MEDS: Morphine Sulfate 2mg/ml Inj(IV/IM USE ONLY) IVP PRN ×3 (01:11→20:59)
[2019-03-03 04:00] VITALS: BP 103/47
[2019-03-03 05:52] LABS: HEMATOCRIT 24.8 % (42.0-52.0); HEMOGLOBIN 8.4 G/DL (14.2-18.0); MEAN CORPUSCULAR VOLUME 83 FL (80-99); PLATELET COUNT 221 K/UL (150-450); RED BLOOD COUNT 2.99 M/UL (4.70-6.10); RED CELL DISTRIBUTION WIDTH 14.7 % (11.6-14.8)
[2019-03-03 06:00] LABS: WHITE BLOOD COUNT 23.6 K/UL (4.8-10.8)
[2019-03-03 06:17] LABS: ALANINE AMINOTRANSFERASE 12 U/L (12-78); ALBUMIN 1.7 G/DL (3.4-5.0); ALBUMIN/GLOBULIN RATIO 0.4 (1.0-2.7); ALKALINE PHOSPHATASE 58 U/L (46-116); ANION GAP 10 mmol/L (5-15); ASPARTATE AMINO TRANSFERASE 22 U/L (15-37); BILIRUBIN,TOTAL 0.7 MG/DL (0.2-1.0); BLOOD UREA NITROGEN 16 mg/dL (7-18); CARBON DIOXIDE 21 MMOL/L (21-32); CHLORIDE 101 MMOL/L (98-107); CREATININE 1.1 MG/DL (0.55-1.30); PHOSPHORUS 2.9 MG/DL (2.5-4.9); POTASSIUM 3.9 MMOL/L (3.5-5.1); SODIUM 132 MMOL/L (136-145)
--- NOTE | 2019-03-03 07:21 | NUR ---
HAND-OFF: Report given to ANJEL Gee. Plan of care endorsed.
--- NOTE | 2019-03-03 07:25 | NUR ---
NURSE NOTES: Report received from ANJEL Oquendo. AOx3. In RA. Denies any pain or SOB. Breakfast tray offered, Pt refused at this time. R FA 18g IV running D51/2 NS @50, site intact. Positioned for comfort. Bed on lowest position, side rails upx2, brakes engaged. Call light within easy reach.
[2019-03-03 08:00] VITALS: BP 110/62
[2019-03-03] MEDS: Cefepime HCl 1 GM in D5W 55 ML IVPB SCH ×2 (08:31→20:59)
[2019-03-03] MEDS: Tamsulosin 0.4mg cap ORAL SCH (08:31)
--- NOTE | 2019-03-03 09:45 | Pulmonology Progress Note ---
Assessment/Plan Assessment/Plan ASSESSMENT sepsis ( leukocytosis, fever, lactic acidosis, evidence of infection) colitis elevated troponin r/o ACS vs demand ischemia tachycardia probably dehydration asymptomatic bacteriuria /? UTI with Staph aureus - hx of HTN COPD BPH sacral decub st 3 POA anemia severe hypo Mg , likely due to diarrhea PLAN OF CARE tele trend troponin cardio eval per primary team ECHO with pEF BP management , currently normotensive, tachycardia gentle IVF O2 HHN prn CXR noted HH dropping, will hold ASA and heparin abx as per ID ; UCX + Staph aureus , discussed with ID specialist likely insignificant; asymptomatic bacteriuria given no sx ID consult pending stool studies: stool C dif, cx, O&P pending check HIV wound care per surgery eval CL diet as tolerated pain management monitor HH with goal to keep Hgb above 7, anemia w/up noted, check ferritin , stool OB ; CEA monitor renal parameters, lytes, correct lytes as needed replace Mg supportive care case discussed and evaluated by supervising physician Subjective Allergies: Coded Allergies: No Known Allergies (Unverified , 03/02/19) Subjective no signs of resp distress, no CP low grade fever at night, currently afebrile leukocytosis with small trend down, still significant still with intermittent abd pain and Mg-1.0 Objective Last 24 Hour Vital Signs Date Time Temp Pulse Resp B/P (MAP) Pulse Ox O2 Delivery O2 Flow Rate FiO2 03/03/19 04:00 107 03/03/19 04:00 97.5 104 19 103/47 (65) 95 03/03/19 00:17 100.0 03/03/19 00:00 111 03/02/19 21:00 Nasal Cannula 2.0 03/02/19 20:00 99.0 121 22 110/52 (71) 96 03/02/19 20:00 119 03/02/19 15:49 116 03/02/19 15:19 98.2 116 18 119/66 (83) 98 03/02/19 14:33 Room Air 03/02/19 14:29 122 03/02/19 12:00 98.2 122 18 124/60 (81) 98 Intake and Output 03/02/19 03/03/19 18:59 06:59 Intake Total 880 ml 845 ml Output Total 200 ml 300 ml Balance 680 ml 545 ml Intake Oral 470 ml 240 ml IV Total 410 ml 605 ml Output Urine Total 200 ml 300 ml # Bowel Movements 1 General Appearance: no acute distress HEENT: normocephalic, atraumatic, anicteric, mucous membranes moist Respiratory/Chest: lungs clear, no respiratory distress, no accessory muscle use Cardiovascular: regular rhythm, tachycardia - ST on tele Abdomen: normal bowel sounds - abdomen soft, mild tenderness on palpation , non distended Extremities: no edema, pedal pulses normal Skin: other - sacral decub st 3 Neurologic/Psychiatric: abnormal gait - bedbound, alert, oriented x 3, responsive Microbiology Date/Time Source Procedure Growth Status 03/02/19 04:34 Other(Specify in comment) Gram Stain - Final Resulted 03/02/19 04:34 Other(Specify in comment) Wound Culture Pending Resulted 03/02/19 04:34 Nasal Nares MRSA Culture - Final Staphylococcus Aureus - Mrsa Complete 03/02/19 06:15 Urine,Clean Catch Urine Culture - Preliminary Staphylococcus Aureus Resulted 03/02/19 04:34 Rectum Received Laboratory Tests 03/02/19 11:55: Iron Level 11L, Total Iron Binding Capacity 144L, Percent Iron Saturation 8L, Unsaturated Iron Binding 133, Lactate Dehydrogenase 163, Troponin I 0.361H, Vitamin B12 Level 493, Folate 17.1 03/02/19 14:45: Prothrombin Time 13.0H, Prothromb Time International Ratio 1.2H, Activated Partial Thromboplast Time 35H 03/03/19 05:25: Troponin I 0.233H, White Blood Count 23.6*H, Red Blood Count 2.99L, Hemoglobin 8.4L, Hematocrit 24.8L, Mean Corpuscular Volume 83, Mean Corpuscular Hemoglobin 28.2, Mean Corpuscular Hemoglobin Concent 33.9, Red Cell Distribution Width 14.7 , Platelet Count 221, Mean Platelet Volume 7.1, Neutrophils (%) (Auto) , Lymphocytes (%) (Auto) , Monocytes (%) (Auto) , Eosinophils (%) (Auto) , Basophils (%) (Auto) , Neutrophils % (Manual) [Pending], Lymphocytes % (Manual) [Pending], Platelet Estimate [Pending], Platelet Morphology [Pending], Erythrocyte Sedimentation Rate 96H, Sodium Level 132L, Potassium Level 3.9, Chloride Level 101, Carbon Dioxide Level 21, Anion Gap 10, Blood Urea Nitrogen 16, Creatinine 1.1, Estimat Glomerular Filtration Rate > 60, Glucose Level 119H , Calcium Level 8.0L, Phosphorus Level 2.9, Magnesium Level 1.0L, Total Bilirubin 0.7, Aspartate Amino Transf (AST/SGOT) 22, Alanine Aminotransferase ( ALT/SGPT) 12, Alkaline Phosphatase 58, Total Protein 6.5, Albumin 1.7L, Globulin 4.8, Albumin/Globulin Ratio 0.4L 03/03/19 07:00: Stool Occult Blood [Pending] Current Medications Medications (Trade) Dose Ordered Sig/Deborah Route PRN Reason Start Time Stop Time Status Last Admin Dose Admin Acetaminophen (Tylenol) 650 mg Q4H PRN ORAL Mild Pain/Temp > 100.5 03/02/19 08:15 04/01/19 08:14 03/02/19 23:47 Acetaminophen/ Hydrocodone Bitart ([place] 5/325) 1 tab Q4H PRN ORAL Moderate Pain (Pain Scale 4-6) 03/02/19 08:15 03/09/19 08:14 Cefepime HCl 1 gm/ Dextrose 55 ml @ 110 mls/hr EVERY 12 HOURS IVPB 03/02/19 09:00 03/09/19 08:59 03/03/19 08:31 Dextrose/Sodium Chloride 1,000 ml @ 50 mls/hr Q20H IV 03/03/19 09:00 04/01/19 08:59 03/02/19 21:21 Metronidazole 100 ml @ 100 mls/hr Q8HR IVPB 03/02/19 14:00 03/09/19 13:59 03/03/19 05:27 Morphine Sulfate (Morphine Sulfate) 2 mg Q4H PRN IVP Severe Pain (Pain Scale 7-10) 03/02/19 08:15 03/09/19 08:14 03/03/19 01:11 Ondansetron HCl (Zofran) 4 mg Q4H PRN IVP Nausea & Vomiting 03/02/19 08:15 04/01/19 08:14 Tamsulosin HCl (Flomax) 0.4 mg DAILY ORAL 03/03/19 09:00 04/02/19 08:59 Luciana Camarillo TRIM OPERATOR Mar 03, 2019 09:45
--- NOTE | 2019-03-03 09:45 | Consultation ---
History of Present Illness General Date patient seen: Mar 03, 2019 Time patient seen: 09:45 Chief Complaint: Fever Present Illness [facility] # [id number] Allergies: Coded Allergies: No Known Allergies (Unverified , 03/02/19) Medication History Scheduled Bisacodyl* (Dulcolax*), 10 MG ORAL ONCE, (Reported) Docusate Sodium* (Docusate Sodium*), 100 MG ORAL TWICE A DAY, (Reported) Famotidine* (Pepcid 20mg tablet*), 20 MG ORAL TWICE A DAY, (Reported) Hydralazine Hcl* (Hydralazine Hcl*), 50 MG ORAL EVERY 8 HOURS, (Reported) Loratadine (Claritin), 10 MG ORAL DAILY, (Reported) Losartan Potassium* (Cozaar*), 100 MG ORAL DAILY, (Reported) Magnesium Hydroxide* (Milk Of Magnesia*), 30 ML ORAL PRN, (Reported) Na Phos,M-B/Na Phos,Di-Ba* (Fleet Enema*), 133 ML RECTAL DAILY, (Reported) Pregabalin* (Lyrica*), 50 MG ORAL THREE TIMES A DAY, (Reported) Tamsulosin HCl (Flomax), 0.4 MG ORAL DAILY, (Reported) Scheduled PRN Acetaminophen* (Acetaminophen 325MG Tablet*), 325 MG ORAL Q6H PRN for Pain Scale (3-5), (Reported) Ondansetron* (Zofran*), 4 MG IV Q8H PRN for Nausea & Vomiting, (Reported) Miscellaneous Medications Ipratropium/Albuterol Sulfate (DuoNeb 0.5-3(2.5)mg/3ml), 3 ML HHN, (Reported) Patient History Healthcare decision maker Resuscitation status Full Code Advanced Directive on File Physical Exam Last 24 Hour Vital Signs Date Time Temp Pulse Resp B/P (MAP) Pulse Ox O2 Delivery O2 Flow Rate FiO2 03/03/19 04:00 107 03/03/19 04:00 97.5 104 19 103/47 (65) 95 03/03/19 00:17 100.0 03/03/19 00:00 111 03/02/19 21:00 Nasal Cannula 2.0 03/02/19 20:00 99.0 121 22 110/52 (71) 96 03/02/19 20:00 119 03/02/19 15:49 116 03/02/19 15:19 98.2 116 18 119/66 (83) 98 03/02/19 14:33 Room Air 03/02/19 14:29 122 03/02/19 12:00 98.2 122 18 124/60 (81) 98 Intake and Output 03/02/19 03/03/19 18:59 06:59 Intake Total 880 ml 845 ml Output Total 200 ml 300 ml Balance 680 ml 545 ml Intake Oral 470 ml 240 ml IV Total 410 ml 605 ml Output Urine Total 200 ml 300 ml # Bowel Movements 1 Laboratory Tests Test 03/02/19 11:55 03/02/19 14:45 03/03/19 05:25 03/03/19 07:00 Iron Level 11 ug/dL (50-175) L Total Iron Binding Capacity 144 ug/dL (250-450) L Percent Iron Saturation 8 % (15-50) L Unsaturated Iron Binding 133 ug/dL (112-346) Lactate Dehydrogenase 163 U/L (81-234) Troponin I 0.361 ng/mL (0.000-0.056) 0.233 ng/mL (0.000-0.056) Vitamin B12 Level 493 PG/ML (193-986) Folate 17.1 NG/ML (8.6-58.9) Prothrombin Time 13.0 SEC (9.30-11.50) H Prothromb Time International Ratio 1.2 (0.9-1.1) H Activated Partial Thromboplast Time 35 SEC (23-33) H White Blood Count 23.6 K/UL (4.8-10.8) *H Red Blood Count 2.99 M/UL (4.70-6.10) L Hemoglobin 8.4 G/DL (14.2-18.0) L Hematocrit 24.8 % (42.0-52.0) L Mean Corpuscular Volume 83 FL (80-99) Mean Corpuscular Hemoglobin 28.2 PG (27.0-31.0) Mean Corpuscular Hemoglobin Concent 33.9 G/DL (32.0-36.0) Red Cell Distribution Width 14.7 % (11.6-14.8) Platelet Count 221 K/UL (150-450) Mean Platelet Volume 7.1 FL (6.5-10.1) Neutrophils (%) (Auto) % (45.0-75.0) Lymphocytes (%) (Auto) % (20.0-45.0) Monocytes (%) (Auto) % (1.0-10.0) Eosinophils (%) (Auto) % (0.0-3.0) Basophils (%) (Auto) % (0.0-2.0) Neutrophils % (Manual) Pending Lymphocytes % (Manual) Pending Platelet Estimate Pending Platelet Morphology Pending Erythrocyte Sedimentation Rate 96 MM/HR (0-20) H Sodium Level 132 MMOL/L (136-145) L Potassium Level 3.9 MMOL/L (3.5-5.1) Chloride Level 101 MMOL/L (98-107) Carbon Dioxide Level 21 MMOL/L (21-32) Anion Gap 10 mmol/L (5-15) Blood Urea Nitrogen 16 mg/dL (7-18) Creatinine 1.1 MG/DL (0.55-1.30) Estimat Glomerular Filtration Rate > 60 mL/min (>60) Glucose Level 119 MG/DL (74-106) H Calcium Level 8.0 MG/DL (8.5-10.1) L Phosphorus Level 2.9 MG/DL (2.5-4.9) Magnesium Level 1.0 MG/DL (1.8-2.4) L Total Bilirubin 0.7 MG/DL (0.2-1.0) Aspartate Amino Transf (AST/SGOT) 22 U/L (15-37) Alanine Aminotransferase (ALT/SGPT) 12 U/L (12-78) Alkaline Phosphatase 58 U/L (46-116) Total Protein 6.5 G/DL (6.4-8.2) Albumin 1.7 G/DL (3.4-5.0) L Globulin 4.8 g/dL Albumin/Globulin Ratio 0.4 (1.0-2.7) L Stool Occult Blood Pending Height (Feet): 6 Height (Inches): 1.00 Weight (Pounds): 200 Medications Current Medications Medications (Trade) Dose Ordered Sig/Deborah Route PRN Reason Start Time Stop Time Status Last Admin Dose Admin Acetaminophen (Tylenol) 650 mg Q4H PRN ORAL Mild Pain/Temp > 100.5 03/02/19 08:15 12/15/19 08:14 03/02/19 23:47 Acetaminophen/ Hydrocodone Bitart ([place] 5/325) 1 tab Q4H PRN ORAL Moderate Pain (Pain Scale 4-6) 03/02/19 08:15 03/09/19 08:14 Cefepime HCl 1 gm/ Dextrose 55 ml @ 110 mls/hr EVERY 12 HOURS IVPB 03/02/19 09:00 03/09/19 08:59 03/03/19 08:31 Dextrose/Sodium Chloride 1,000 ml @ 50 mls/hr Q20H IV 03/03/19 09:00 04/01/19 08:59 03/02/19 21:21 Magnesium Sulfate 100 ml @ 100 mls/hr Q1H IV 03/03/19 10:45 03/03/19 14:44 UNV Metronidazole 100 ml @ 100 mls/hr Q8HR IVPB 03/02/19 14:00 03/09/19 13:59 03/03/19 05:27 Morphine Sulfate (Morphine Sulfate) 2 mg Q4H PRN IVP Severe Pain (Pain Scale 7-10) 03/02/19 08:15 03/09/19 08:14 03/03/19 01:11 Ondansetron HCl (Zofran) 4 mg Q4H PRN IVP Nausea & Vomiting 03/02/19 08:15 04/01/19 08:14 Tamsulosin HCl (Flomax) 0.4 mg DAILY ORAL 03/03/19 09:00 04/02/19 08:59 Steve Rivas MD Mar 03, 2019 09:45
--- NOTE | 2019-03-03 10:44 | NUR ---
NURSE NOTES: Refused wound assessment and pictures. Teaching done. Offered pain medication before wound care. Still adamant. Will try again later.
[2019-03-03 12:00] VITALS: BP 115/65
--- NOTE | 2019-03-03 12:42 | Consultation ---
History of Present Illness General Date patient seen: Mar 03, 2019 Time patient seen: 12:33 Chief Complaint: Fever Reason for Consultation: Sacral ulcer Present Illness HPI Consulted to see this patient with a sacral pressure ulcer. He was admitted to [facility] with fevers and abdominal pain. He had a leukocytosis of 26k and a CT showed colitis. He is bedridden but unclear as to why as he denies trauma or CVA. He states he was ambulating earlier this year. At any rate upon admission he was noted to have a sacral pressure ulcer. He also has very low albumin at 1.7. His wound culture was -. Allergies: Coded Allergies: No Known Allergies (Unverified , 03/02/19) Medication History Scheduled Bisacodyl* (Dulcolax*), 10 MG ORAL ONCE, (Reported) Docusate Sodium* (Docusate Sodium*), 100 MG ORAL TWICE A DAY, (Reported) Famotidine* (Pepcid 20mg tablet*), 20 MG ORAL TWICE A DAY, (Reported) Hydralazine Hcl* (Hydralazine Hcl*), 50 MG ORAL EVERY 8 HOURS, (Reported) Loratadine (Claritin), 10 MG ORAL DAILY, (Reported) Losartan Potassium* (Cozaar*), 100 MG ORAL DAILY, (Reported) Magnesium Hydroxide* (Milk Of Magnesia*), 30 ML ORAL PRN, (Reported) Na Phos,M-B/Na Phos,Di-Ba* (Fleet Enema*), 133 ML RECTAL DAILY, (Reported) Pregabalin* (Lyrica*), 50 MG ORAL THREE TIMES A DAY, (Reported) Tamsulosin HCl (Flomax), 0.4 MG ORAL DAILY, (Reported) Scheduled PRN Acetaminophen* (Acetaminophen 325MG Tablet*), 325 MG ORAL Q6H PRN for Pain Scale (3-5), (Reported) Ondansetron* (Zofran*), 4 MG IV Q8H PRN for Nausea & Vomiting, (Reported) Miscellaneous Medications Ipratropium/Albuterol Sulfate (DuoNeb 0.5-3(2.5)mg/3ml), 3 ML HHN, (Reported) Patient History History Provided By: Patient, Medical Record Healthcare decision maker Resuscitation status Full Code Advanced Directive on File Past Medical/Surgical History Past Medical/Surgical History: (1) Colitis (2) COPD exacerbation (3) Hypertension (4) COPD (chronic obstructive pulmonary disease) (5) BPH (benign prostatic hyperplasia) Review of Systems Constitutional: Reports: weakness Eye: Reports: no symptoms ENT: Reports: no symptoms Respiratory: Reports: shortness of breath Gastrointestinal: Reports: diarrhea, nausea Musculoskeletal: Reports: see HPI Skin: Reports: see HPI Endocrine: Reports: no symptoms Hematologic/Lymphatic: Reports: no symptoms Physical Exam General Appearance: alert, thin Lines, tubes and drains: peripheral Skin Exam: other - Patient refused multiple requests to turn to allow direct evalaution of the sacral ulcer. Evaluation of the photograph taken yesterday shows stge 3 sacral pressure ulcer with predominantly granular base. Periskin appears slightly macerated but no erythema visible. Musculoskeletal: atrophy Last 24 Hour Vital Signs Date Time Temp Pulse Resp B/P (MAP) Pulse Ox O2 Delivery O2 Flow Rate FiO2 03/03/19 08:59 104 03/03/19 08:00 104 03/03/19 08:00 97.0 104 20 110/62 (78) 96 03/03/19 04:00 107 03/03/19 04:00 97.5 104 19 103/47 (65) 95 03/03/19 00:17 100.0 03/03/19 00:00 111 03/02/19 21:00 Nasal Cannula 2.0 03/02/19 20:00 99.0 121 22 110/52 (71) 96 03/02/19 20:00 119 03/02/19 15:49 116 03/02/19 15:19 98.2 116 18 119/66 (83) 98 03/02/19 14:33 Room Air 03/02/19 14:29 122 Intake and Output 03/02/19 03/03/19 18:59 06:59 Intake Total 880 ml 845 ml Output Total 200 ml 300 ml Balance 680 ml 545 ml Intake Oral 470 ml 240 ml IV Total 410 ml 605 ml Output Urine Total 200 ml 300 ml # Bowel Movements 1 Laboratory Tests Test 03/02/19 14:45 03/03/19 05:25 03/03/19 07:00 Prothrombin Time 13.0 SEC (9.30-11.50) H Prothromb Time International Ratio 1.2 (0.9-1.1) H Activated Partial Thromboplast Time 35 SEC (23-33) H White Blood Count 23.6 K/UL (4.8-10.8) *H Red Blood Count 2.99 M/UL (4.70-6.10) L Hemoglobin 8.4 G/DL (14.2-18.0) L Hematocrit 24.8 % (42.0-52.0) L Mean Corpuscular Volume 83 FL (80-99) Mean Corpuscular Hemoglobin 28.2 PG (27.0-31.0) Mean Corpuscular Hemoglobin Concent 33.9 G/DL (32.0-36.0) Red Cell Distribution Width 14.7 % (11.6-14.8) Platelet Count 221 K/UL (150-450) Mean Platelet Volume 7.1 FL (6.5-10.1) Neutrophils (%) (Auto) % (45.0-75.0) Lymphocytes (%) (Auto) % (20.0-45.0) Monocytes (%) (Auto) % (1.0-10.0) Eosinophils (%) (Auto) % (0.0-3.0) Basophils (%) (Auto) % (0.0-2.0) Differential Total Cells Counted 100 Neutrophils % (Manual) 80 % (45-75) H Lymphocytes % (Manual) 10 % (20-45) L Monocytes % (Manual) 6 % (1-10) Eosinophils % (Manual) 0 % (0-3) Basophils % (Manual) 0 % (0-2) Band Neutrophils 4 % (0-8) Platelet Estimate Adequate Platelet Morphology Normal Anisocytosis 1+ Erythrocyte Sedimentation Rate 96 MM/HR (0-20) H Sodium Level 132 MMOL/L (136-145) L Potassium Level 3.9 MMOL/L (3.5-5.1) Chloride Level 101 MMOL/L (98-107) Carbon Dioxide Level 21 MMOL/L (21-32) Anion Gap 10 mmol/L (5-15) Blood Urea Nitrogen 16 mg/dL (7-18) Creatinine 1.1 MG/DL (0.55-1.30) Estimat Glomerular Filtration Rate > 60 mL/min (>60) Glucose Level 119 MG/DL (74-106) H Calcium Level 8.0 MG/DL (8.5-10.1) L Phosphorus Level 2.9 MG/DL (2.5-4.9) Magnesium Level 1.0 MG/DL (1.8-2.4) L Ferritin 716 NG/ML (8-388) H Total Bilirubin 0.7 MG/DL (0.2-1.0) Aspartate Amino Transf (AST/SGOT) 22 U/L (15-37) Alanine Aminotransferase (ALT/SGPT) 12 U/L (12-78) Alkaline Phosphatase 58 U/L (46-116) Troponin I 0.233 ng/mL (0.000-0.056) Total Protein 6.5 G/DL (6.4-8.2) Albumin 1.7 G/DL (3.4-5.0) L Globulin 4.8 g/dL Albumin/Globulin Ratio 0.4 (1.0-2.7) L Stool Occult Blood Pending Height (Feet): 6 Height (Inches): 1.00 Weight (Pounds): 200 Medications Current Medications Medications (Trade) Dose Ordered Sig/Deborah Route PRN Reason Start Time Stop Time Status Last Admin Dose Admin Acetaminophen (Tylenol) 650 mg Q4H PRN ORAL Mild Pain/Temp > 100.5 03/02/19 08:15 04/01/19 08:14 03/02/19 23:47 Acetaminophen/ Hydrocodone Bitart ([place] 5/325) 1 tab Q4H PRN ORAL Moderate Pain (Pain Scale 4-6) 03/02/19 08:15 03/09/19 08:14 Cefepime HCl 1 gm/ Dextrose 55 ml @ 110 mls/hr EVERY 12 HOURS IVPB 03/02/19 09:00 03/09/19 08:59 03/03/19 08:31 Dextrose/Sodium Chloride 1,000 ml @ 75 mls/hr [id number] IV 03/03/19 10:00 04/02/19 09:59 Magnesium Sulfate 100 ml @ 100 mls/hr Q1H IVPB 03/03/19 11:00 03/03/19 14:59 03/03/19 12:09 Metronidazole 100 ml @ 100 mls/hr Q8HR IVPB 03/02/19 14:00 03/09/19 13:59 03/03/19 05:27 Morphine Sulfate (Morphine Sulfate) 2 mg Q4H PRN IVP Severe Pain (Pain Scale 7-10) 03/02/19 08:15 03/09/19 08:14 03/03/19 01:11 Ondansetron HCl (Zofran) 4 mg Q4H PRN IVP Nausea & Vomiting 03/02/19 08:15 04/01/19 08:14 Tamsulosin HCl (Flomax) 0.4 mg DAILY ORAL 03/03/19 09:00 04/02/19 08:59 Assessment/Plan Status: stable Assessment/Plan: Patient with stage 3 pressure ulcer of the sacrum in the presence of severe protein malnutrition. He needs to be offloaded q2 hours and recommend either therahoney or collagen dressing on the ulcer. The ulcer does not appear clinically infected and his leukocytosis is not due to the wound. No surgical intervention for the wound is necessary at this time. Need to also make sure with his diarrhea that the stool does not get into the wound. This may require more than daily dressing changes. Mitchel Ramírez MD Mar 03, 2019 12:42
--- NOTE | 2019-03-03 14:17 | Surgery Progress Note ---
Surgery Progress Note Subjective Additional Comments low grade fevers leukocytosis slightly down non verbal but follows limited commands Objective Last 24 Hour Vital Signs Date Time Temp Pulse Resp B/P (MAP) Pulse Ox O2 Delivery O2 Flow Rate FiO2 03/03/19 08:59 104 03/03/19 08:00 104 03/03/19 08:00 97.0 104 20 110/62 (78) 96 03/03/19 04:00 107 03/03/19 04:00 97.5 104 19 103/47 (65) 95 03/03/19 00:17 100.0 03/03/19 00:00 111 03/02/19 21:00 Nasal Cannula 2.0 03/02/19 20:00 99.0 121 22 110/52 (71) 96 03/02/19 20:00 119 03/02/19 15:49 116 03/02/19 15:19 98.2 116 18 119/66 (83) 98 03/02/19 14:33 Room Air 03/02/19 14:29 122 I&O Intake and Output 03/02/19 03/03/19 19:00 07:00 Intake Total 880 ml 845 ml Output Total 200 ml 300 ml Balance 680 ml 545 ml Intake Oral 470 ml 240 ml IV Total 410 ml 605 ml Output Urine Total 200 ml 300 ml # Bowel Movements 1 Dressing: other Wound: other Drains: other Cardiovascular: RSR Respiratory: decreased breath sounds Abdomen: soft, present bowel sounds, non-distended Extremities: no cyanosis, other Laboratory Tests Test 03/02/19 14:45 03/03/19 05:25 03/03/19 07:00 Prothrombin Time 13.0 SEC (9.30-11.50) H Prothromb Time International Ratio 1.2 (0.9-1.1) H Activated Partial Thromboplast Time 35 SEC (23-33) H White Blood Count 23.6 K/UL (4.8-10.8) *H Red Blood Count 2.99 M/UL (4.70-6.10) L Hemoglobin 8.4 G/DL (14.2-18.0) L Hematocrit 24.8 % (42.0-52.0) L Mean Corpuscular Volume 83 FL (80-99) Mean Corpuscular Hemoglobin 28.2 PG (27.0-31.0) Mean Corpuscular Hemoglobin Concent 33.9 G/DL (32.0-36.0) Red Cell Distribution Width 14.7 % (11.6-14.8) Platelet Count 221 K/UL (150-450) Mean Platelet Volume 7.1 FL (6.5-10.1) Neutrophils (%) (Auto) % (45.0-75.0) Lymphocytes (%) (Auto) % (20.0-45.0) Monocytes (%) (Auto) % (1.0-10.0) Eosinophils (%) (Auto) % (0.0-3.0) Basophils (%) (Auto) % (0.0-2.0) Differential Total Cells Counted 100 Neutrophils % (Manual) 80 % (45-75) H Lymphocytes % (Manual) 10 % (20-45) L Monocytes % (Manual) 6 % (1-10) Eosinophils % (Manual) 0 % (0-3) Basophils % (Manual) 0 % (0-2) Band Neutrophils 4 % (0-8) Platelet Estimate Adequate Platelet Morphology Normal Anisocytosis 1+ Erythrocyte Sedimentation Rate 96 MM/HR (0-20) H Sodium Level 132 MMOL/L (136-145) L Potassium Level 3.9 MMOL/L (3.5-5.1) Chloride Level 101 MMOL/L (98-107) Carbon Dioxide Level 21 MMOL/L (21-32) Anion Gap 10 mmol/L (5-15) Blood Urea Nitrogen 16 mg/dL (7-18) Creatinine 1.1 MG/DL (0.55-1.30) Estimat Glomerular Filtration Rate > 60 mL/min (>60) Glucose Level 119 MG/DL (74-106) H Calcium Level 8.0 MG/DL (8.5-10.1) L Phosphorus Level 2.9 MG/DL (2.5-4.9) Magnesium Level 1.0 MG/DL (1.8-2.4) L Ferritin 716 NG/ML (8-388) H Total Bilirubin 0.7 MG/DL (0.2-1.0) Aspartate Amino Transf (AST/SGOT) 22 U/L (15-37) Alanine Aminotransferase (ALT/SGPT) 12 U/L (12-78) Alkaline Phosphatase 58 U/L (46-116) Troponin I 0.233 ng/mL (0.000-0.056) Total Protein 6.5 G/DL (6.4-8.2) Albumin 1.7 G/DL (3.4-5.0) L Globulin 4.8 g/dL Albumin/Globulin Ratio 0.4 (1.0-2.7) L Stool Occult Blood Pending Plan Problems: (1) Decubitus skin ulcer Assessment & Plan: Pt presented on admission with multiple pressure injuries. Blood blisters to ezequiel R tibia and medial L tibia. Full Thickness stage 3 pressure injury Sacrum . Base of wound 60% biofilm,40% viable. Edges are macerated bordered by black and fluctuant base with additional wounds at R sacrum. No odor or exudate noted. Pt complained of pain at site when in supine. Rigidity noted to both lower extremities and pt heels are in continuously in contact. DTPI noted to medial R heel . Base of wound with purple with maroon borders and fluctuant at base (L)4cm x (W)4cm .Periwound R heel is boggy but blanchable. DTPI medial L heel . Base of wound is maroon with scattered purple areas and is fluctuant at base. Periwound L heel is boggy but blanchable. Tx.Plan: Cleanse Sacral wound with Saline. Apply Therahoney. Apply Moisture Barrier periwound. Cover with Optifoam drsg every 3 days and prn. Apply Cavilon Skin Barrier to blood blisters R and L tibia. Cover each wound with Optifoam drsg. Change every 7 days and prn. Apply Cavilon Skin Barrier to both heels. Cover each heel with Optifoam drsg. Change every 7 days and prn. APM/KRISTI Mattress overlay. Reposition at least every 2hours or as tolerated. Place pillow between lower ext to keep Heels apart. Off-load heels with pillow. (2) Colitis Assessment & Plan: Findings: Significant artifact limits evaluation. The lung bases notable for posterior basal atelectasis. Patchy groundglass opacities also noted nonspecific. Trace pericardial fluid demonstrated. No obvious hydronephrosis or stones identified. No obvious free fluid identified. Question of gallstones. Aortoiliac calcifications are present. There is thickening of the wall of the colon especially noted on the right side involving the ascending colon and cecum. Findings suspicious for colitis. Correlate clinically. There is thickening of the wall the urinary bladder. 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 Anasarca noted. IMPRESSION: Limited evaluation due to technical artifacts. Suspected colitis with the thickening of the wall the colon. Correlate clinically. Thickening of the wall the urinary bladder. Correlate for cystitis. (3) Sepsis Assessment & Plan: febrile t max 104 - resolving low grade now leukocytosis lactic acidosis - resolved exam improved CT with colitis likely etiology of sepsis pending blood cultures ABX as per ID will follow with exam and recs okay for diet (4) Nausea vomiting and diarrhea César Romero Mar 03, 2019 14:17
--- NOTE | 2019-03-03 14:50 | Internal Med Progress Note ---
Subjective Date of Service: Mar 03, 2019 Physician Name Amauri Mera Attending Physician Oscar Martel MD Current Medications Medications (Trade) Dose Ordered Sig/Deborah Route PRN Reason Start Time Stop Time Status Last Admin Dose Admin Acetaminophen (Tylenol) 650 mg Q4H PRN ORAL Mild Pain/Temp > 100.5 03/02/19 08:15 04/01/19 08:14 03/02/19 23:47 Acetaminophen/ Hydrocodone Bitart ([place] 5/325) 1 tab Q4H PRN ORAL Moderate Pain (Pain Scale 4-6) 03/02/19 08:15 03/09/19 08:14 Cefepime HCl 1 gm/ Dextrose 55 ml @ 110 mls/hr EVERY 12 HOURS IVPB 03/02/19 09:00 03/09/19 08:59 03/03/19 08:31 Dextrose/Sodium Chloride 1,000 ml @ 75 mls/hr [id number] IV 03/03/19 10:00 04/02/19 09:59 Magnesium Sulfate 100 ml @ 100 mls/hr Q1H IVPB 03/03/19 11:00 03/03/19 14:59 03/03/19 14:10 Metronidazole 100 ml @ 100 mls/hr Q8HR IVPB 03/02/19 14:00 03/09/19 13:59 03/03/19 05:27 Morphine Sulfate (Morphine Sulfate) 2 mg Q4H PRN IVP Severe Pain (Pain Scale 7-10) 03/02/19 08:15 03/09/19 08:14 03/03/19 01:11 Ondansetron HCl (Zofran) 4 mg Q4H PRN IVP Nausea & Vomiting 03/02/19 08:15 04/01/19 08:14 Tamsulosin HCl (Flomax) 0.4 mg DAILY ORAL 03/03/19 09:00 04/02/19 08:59 Allergies: Coded Allergies: No Known Allergies (Unverified , 03/02/19) ROS Limited/Unobtainable: No Constitutional: Reports: no symptoms HEENT: Reports: no symptoms Cardiovascular: Reports: no symptoms Respiratory: Reports: no symptoms Gastrointestinal/Abdominal: Reports: no symptoms Genitourinary: Reports: no symptoms Neurologic/Psychiatric: Reports: no symptoms Subjective 63 YO M admitted with abdominal pain, nausea and vomiting. Now elevated troponin. Cover for Int Crow-Dr Martel Objective Last Vital Signs Date Time Temp Pulse Resp B/P (MAP) Pulse Ox O2 Delivery O2 Flow Rate FiO2 03/03/19 12:00 111 03/03/19 12:00 98.2 18 115/65 (82) 97 03/03/19 09:00 Nasal Cannula 2.0 Laboratory Tests Test 03/03/19 05:25 03/03/19 07:00 White Blood Count 23.6 K/UL (4.8-10.8) *H Red Blood Count 2.99 M/UL (4.70-6.10) L Hemoglobin 8.4 G/DL (14.2-18.0) L Hematocrit 24.8 % (42.0-52.0) L Mean Corpuscular Volume 83 FL (80-99) Mean Corpuscular Hemoglobin 28.2 PG (27.0-31.0) Mean Corpuscular Hemoglobin Concent 33.9 G/DL (32.0-36.0) Red Cell Distribution Width 14.7 % (11.6-14.8) Platelet Count 221 K/UL (150-450) Mean Platelet Volume 7.1 FL (6.5-10.1) Neutrophils (%) (Auto) % (45.0-75.0) Lymphocytes (%) (Auto) % (20.0-45.0) Monocytes (%) (Auto) % (1.0-10.0) Eosinophils (%) (Auto) % (0.0-3.0) Basophils (%) (Auto) % (0.0-2.0) Differential Total Cells Counted 100 Neutrophils % (Manual) 80 % (45-75) H Lymphocytes % (Manual) 10 % (20-45) L Monocytes % (Manual) 6 % (1-10) Eosinophils % (Manual) 0 % (0-3) Basophils % (Manual) 0 % (0-2) Band Neutrophils 4 % (0-8) Platelet Estimate Adequate Platelet Morphology Normal Anisocytosis 1+ Erythrocyte Sedimentation Rate 96 MM/HR (0-20) H Sodium Level 132 MMOL/L (136-145) L Potassium Level 3.9 MMOL/L (3.5-5.1) Chloride Level 101 MMOL/L (98-107) Carbon Dioxide Level 21 MMOL/L (21-32) Anion Gap 10 mmol/L (5-15) Blood Urea Nitrogen 16 mg/dL (7-18) Creatinine 1.1 MG/DL (0.55-1.30) Estimat Glomerular Filtration Rate > 60 mL/min (>60) Glucose Level 119 MG/DL (74-106) H Calcium Level 8.0 MG/DL (8.5-10.1) L Phosphorus Level 2.9 MG/DL (2.5-4.9) Magnesium Level 1.0 MG/DL (1.8-2.4) L Ferritin 716 NG/ML (8-388) H Total Bilirubin 0.7 MG/DL (0.2-1.0) Aspartate Amino Transf (AST/SGOT) 22 U/L (15-37) Alanine Aminotransferase (ALT/SGPT) 12 U/L (12-78) Alkaline Phosphatase 58 U/L (46-116) Troponin I 0.233 ng/mL (0.000-0.056) Total Protein 6.5 G/DL (6.4-8.2) Albumin 1.7 G/DL (3.4-5.0) L Globulin 4.8 g/dL Albumin/Globulin Ratio 0.4 (1.0-2.7) L Stool Occult Blood Pending Microbiology Date/Time Source Procedure Growth Status 03/02/19 04:34 Other(Specify in comment) Gram Stain - Final Resulted 03/02/19 04:34 Other(Specify in comment) Wound Culture Pending Resulted 03/02/19 04:34 Nasal Nares MRSA Culture - Final Staphylococcus Aureus - Mrsa Complete 03/02/19 06:15 Urine,Clean Catch Urine Culture - Preliminary Staphylococcus Aureus Resulted 03/02/19 04:34 Rectum Received Intake and Output 03/02/19 03/03/19 19:00 07:00 Intake Total 880 ml 845 ml Output Total 200 ml 300 ml Balance 680 ml 545 ml Intake Oral 470 ml 240 ml IV Total 410 ml 605 ml Output Urine Total 200 ml 300 ml # Bowel Movements 1 Objective PHYSICAL EXAMINATION: GENERAL: The patient is awake, responsive, no acute distress, but chronically cachectic and malnutrition. HEAD AND NECK: Pupils are equal and reactive to light. Extraocular movements intact. NECK: Supple. No JVD. LUNGS: Good air entry. No wheezing or rales. Decreased in bases. HEART: S1 and S2. Distant heart sounds. No murmur or gallops. ABDOMEN: Soft, mildly distended. No rebound tenderness. Generalized tenderness. RECTAL: Refused and deferred. GENITOURINARY: Refused and deferred. PSYCHIATRIC: Mood and affect intact. Gait was not assessed due to the patient's status. SKIN: Full thickness stage III pressure ulcer in the sacrum was noted presented on admission. NEUROLOGIC: Cranial nerves II through XII grossly intact. The patient moving all extremities. Lower extremities weaker than upper extremity and tender to touch in the lower extremity. Assessment/Plan Assessment/Plan ASSESSMENT: 1. Mild elevation of troponin, possible acute myocardial infarction versus demand ischemia. 2. Severe dehydration with hypovolemia. 3. Anemia most likely secondary to the intra-abdominal infection. 4. Colitis. 5. BPH. 6. Hypertension presently hypotensive. 7. COPD. 8. Hyponatremia. 9. Pressure ulcer stage III sacrum present on admission. 10. Acute urinary tract infection. PLAN: 1. Admit the patient to monitor unit. We will follow up serial cardiac enzymes. Await cardiology consult=Dr Salas 2. Start the patient on broad-spectrum antibiotic with cefepime and Flagyl. We will follow up with 3. Dr. Chavarria from Pulmonary Critical Care 4. Dr. Romero from General surgery. Monitor laboratory as well as cultures. Code status Full code. DVT prophylaxis with heparin subcutaneous. Followup with wound care of the sacral ulcer. Amauri Mera MD Mar 03, 2019 14:50
--- NOTE | 2019-03-03 14:52 | Cardiology Report ---
APPROVED REPORT EKG Measurement Heart [id number] Sinus tachycardia Rightward axis Borderline ECG
--- NOTE | 2019-03-03 15:42 | Consultation ---
Consult Note Consult Note Cardiology for Dr. Salas Full consult dictated # [id number] Sariah Ruth MD Mar 03, 2019 15:42
[2019-03-03 16:00] VITALS: BP 119/67
--- NOTE | 2019-03-03 16:10 | NUR ---
NURSE NOTES: Refused wound assessment and repositioning. Teaching done.
--- NOTE | 2019-03-03 17:20 | NUR ---
NURSE NOTES: Wound dressing changed. Pt. repositioned for comfort.
[2019-03-03] MEDS: D5 1/2NS 1,000 ML IV SCH ×2 (17:34→23:20)
--- NOTE | 2019-03-03 19:00 | Consultation ---
DATE OF CONSULTATION: 03/03/2019 INFECTIOUS DISEASE CONSULTATION CONSULTING PHYSICIAN: Steve Rivas M.D. REFERRING PHYSICIAN: Oscar Martel M.D. REASON FOR CONSULTATION: Evaluation of the patient for colitis and antibiotic management. HISTORY OF PRESENT ILLNESS: The patient is a 63-year-old poor historian male, who was admitted to this medical center with chief of abdominal pain. The patient has been complaining of diarrhea x3 days. However, denies having nausea and vomiting. The patient's CT scan showed evidence of colitis. Infectious consultation has been requested for further evaluation of the patient and antibiotic management. PAST MEDICAL HISTORY: 1. COPD. 2. Hypertension. 3. BPH. 4. History of cocaine abuse in the past. 5. Bedbound. MEDICATIONS: IV cefepime and Flagyl. ALLERGIES: No known drug allergies. SOCIAL HISTORY: The patient is a resident of [facility]. REVIEW OF SYSTEMS: A 10-point review of systems was done and except what was mentioned above. The patient had fever prior to the admission. However, the patient denies having headaches, cough, nausea, vomiting, or dysuria. PHYSICAL EXAMINATION: VITAL SIGNS: Temperature 104, pulse 104, blood pressure 102/47, and respiratory rate 18. HEENT: No pale conjunctivae. No icterus. NECK: No lymphadenopathy. CHEST: Coarse breathing sounds. HEART: S1 and S2. ABDOMEN: Mildly distended. The patient has lower abdominal pain. No rebound. EXTREMITIES: No cellulitis or cyanosis. SKIN: Stage III decubitus in the sacral area, not grossly infected. LABORATORY AND DIAGNOSTIC DATA: White blood cells 26.5 at the time of admission, today is 23.5; hemoglobin 8.4; and platelets 221,000. UA shows 30 to 40 white blood cells. BUN 16, creatinine 1.4. ALT, AST, and alkaline phosphatase unremarkable. Urine culture is growing more than 100,[address] of abdomen suggestive of colitis and thickening of urinary bladder suggestive of cystitis. ASSESSMENT: 1. Fever. 2. Leukocytosis. 3. Diarrhea/colitis, rule out C. diff colitis, ischemic colitis. 4. Doubt urinary tract infection. At this time, UA shows pyuria and urine culture is growing Staphylococcus aureus, most likely colonizer. 5. Lactic acidosis, improved. PLAN: 1. We will continue the patient on IV cefepime and Flagyl. 2. Monitor CBC. 3. Monitor BMP. 4. Monitor cultures (blood, stool, urine). 5. Stool for C. diff. 6. Monitor clinical progression. 7. Surgical followup. 8. Based on the patient's clinical course and labs, we will do further recommendation. Thank you, Dr. Martel, for allowing me to participate in the care of this patient. I will follow the patient with you during this admission. Steve Rivas M.D. DR: CODY JOB#: [id number] CC:
--- NOTE | 2019-03-03 19:28 | NUR ---
NURSE NOTES: Received report from ANJEL Ayala. Pt is awake, alert and oriented x 4, ST at 110. Pt on 2 LPM via NC sating at 94%. Pt denies pain, no signs or symptoms of distress noted at this time. PIV running D5 0.45%NS at 50 ml/hr. PIV site is patent, intact and asymptomatic. Will monitor closely.
--- NOTE | 2019-03-03 19:45 | Consultation ---
DATE OF CONSULTATION: 03/03/2019 CARDIOLOGY CONSULTATION This is being done as coverage for Dr. Salas. CONSULTING PHYSICIAN: Sariah Ruth M.D. REQUESTING PHYSICIAN: Oscar Martel M.D. REASON FOR CONSULT: Elevated troponin level. HISTORY OF PRESENT ILLNESS: The patient is a 63-year-old man with a history of COPD, hypertension, previous cocaine abuse. Currently, a halfway resident, who was transferred from the convalescent facility with nausea, vomiting, and fever. The patient is a fair historian. He recalls fever and reports abdominal discomfort. He has no complaints of chest pain, dyspnea, or palpitations. He denies any previous history of cardiac disease. Per the notes in the nursing facility, his temperature was as high as 104 and there was nonbloody nonbilious emesis as well as watery diarrhea. In the emergency room, his troponin was 0.145 and Cardiology evaluation was requested. His emergency room evaluation also included an abdominal CT. In the emergency room, CT of the abdomen was reported to show colitis. Additionally, his troponin was elevated at 0.145 and Cardiology evaluation was requested. MEDICATIONS: At the convalescent facility, Colace, Pepcid, hydralazine, loratadine, losartan, magnesium, Lyrica, and Flomax. ALLERGIES: No known drug allergies. PAST MEDICAL HISTORY: As noted above. History of hypertension, COPD, BPH. SOCIAL HISTORY: Per the chart, the patient has history of cocaine abuse. He denies any tobacco, alcohol, or drug abuse. PHYSICAL EXAMINATION: VITAL SIGNS: Blood pressure is 115/65, pulse 111 and regular, respirations 18, and afebrile. Temperature earlier today 100. GENERAL: Alert, well-developed, male, in no acute distress. HEENT: Normocephalic and atraumatic. Pupils are equal, round, and reactive to light. Sclerae anicteric. Oral mucosa are moist. NECK: Supple. There is no jugular venous distention. No carotid bruits. LUNGS: Clear to auscultation bilaterally. HEART: Regular S1 and S2 with no murmur or S3. ABDOMEN: Soft with mild diffuse tenderness and decreased bowel sounds. No palpable masses. Nondistended. EXTREMITIES: No cyanosis, clubbing. There are dressings covering superficial ulcerations of both legs. 1+ peripheral lower extremity edema bilaterally. 2+ dorsalis pedis and posterior tibial pulses bilaterally. LABORATORY AND DIAGNOSTIC DATA: Hemoglobin 8.4, hematocrit 24.8, white blood count 23,600, platelets 221,000. Sodium 132, potassium 3.9, chloride 101, bicarbonate 21, BUN 16, creatinine 1.1. Glucose 119. Troponin on admission 0.145, repeat 0.36 and 0.32. EKG is not available for review in the chart. However, per the report, EKG showed sinus tachycardia, rate of 127. Right axis, no ST-segment or T-wave changes. Chest x-ray was pending. Echo from 03/02/2019 shows normal left ventricular systolic function. Normal wall motion, EF 60%. Focal aortic valve sclerosis with no stenosis. [id number] tricuspid regurgitation. ASSESSMENT AND RECOMMENDATIONS: The patient is a 63-year-old man with history of hypertension, remote history of cocaine use, and no previous cardiac disease, who was admitted with fever, abdominal pain, nausea, vomiting, and diarrhea. Per the notes workup has revealed colitis. He is being treated with antibiotics as per the primary team. With regard to his cardiac status, he has mild troponin elevation with no reported ischemic changes on EKG. I will obtain another EKG to confirm and his echo additionally is not reported to show any wall motion abnormalities and shows normal left ventricular systolic function. I would favor further evaluation to rule out myocardial ischemia with stress nuclear study once the patient's colitis has been treated and he has been stabilized. He is currently NPO. We will not start any cardiac medications at this time. He has a history of hypertension, but is currently normotensive. We will follow for Dr. Salas, until he returns on 03/05/2019. Thank you for allowing us to participate in his care. Sariah Ruth M.D. DR: DES JOB#: [id number] CC:
[2019-03-03 20:00] VITALS: BP 112/63
[2019-03-04] VITALS: BP 95/58
--- NOTE | 2019-03-04 02:19 | NUR ---
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 Isolation assessment completed. Pt is in bed, asleep, no signs or symptoms of pain or distress noted at this time. Charge nurse June Jimenez made aware. Will notify of results.
[2019-03-04 04:00] VITALS: BP 104/64
--- NOTE | 2019-03-04 07:33 | NUR ---
HAND-OFF: Report given to ANJEL Ayala.
[2019-03-04 07:34] LABS: HEMATOCRIT 23.4 % (42.0-52.0); HEMOGLOBIN 7.4 G/DL (14.2-18.0); MEAN CORPUSCULAR VOLUME 86 FL (80-99); PLATELET COUNT 219 K/UL (150-450); RED BLOOD COUNT 2.73 M/UL (4.70-6.10); RED CELL DISTRIBUTION WIDTH 15.7 % (11.6-14.8); WHITE BLOOD COUNT 16.8 K/UL (4.8-10.8)
--- NOTE | 2019-03-04 07:34 | NUR ---
Dr. Martel made aware of pt positive for VRE rectum. No new orders given at this time.
[2019-03-04 08:00] VITALS: BP 104/62
[2019-03-04] MEDS: Cefepime HCl 1 GM in D5W 55 ML IVPB SCH ×2 (08:35→21:22)
[2019-03-04] MEDS: Tamsulosin 0.4mg cap ORAL SCH ×2 (08:35→18:20)
[2019-03-04 09:12] LABS: ANION GAP 2 mmol/L (5-15); BLOOD UREA NITROGEN 18 mg/dL (7-18); CARBON DIOXIDE 24 MMOL/L (21-32); CHLORIDE 97 MMOL/L (98-107); POTASSIUM 3.3 MMOL/L (3.5-5.1); SODIUM 123 MMOL/L (136-145)
--- NOTE | 2019-03-04 10:05 | Pulmonology Progress Note ---
Assessment/Plan Assessment/Plan ASSESSMENT sepsis ( leukocytosis, fever, lactic acidosis, evidence of infection) colitis elevated troponin r/o ACS vs demand ischemia tachycardia probably dehydration likely HIV asymptomatic bacteriuria /? UTI with MRSA- hx of HTN COPD BPH sacral decub st 3 POA anemia severe hypo Mg , likely due to diarrhea -resolved acute hypo Na PLAN OF CARE tele trend troponin, trending down, minimally elevated; no c/o CP probably demand ischemia cardio eval appreciated ECHO with pEF BP management , currently normotensive, gentle IVF, tachycardia with some improvement O2 HHN prn CXR noted HH dropping, ASA and heparin on hold abx as per ID ; UCX + Staph aureus , discussed with ID specialist likely insignificant; asymptomatic bacteriuria given no sx ID consult pending stool studies: stool C dif - negative; stool cx, and O&P pending check HIV-prelim positive wound care per surgery eval CL diet as tolerated, advance as tolerated pain management monitor HH with goal to keep Hgb above 7, anemia w/up noted, ferritin high 716 stool OB and CEA-pending monitor renal parameters, lytes, correct lytes as needed Mg stable after replacement low Na, probably not depletional since IVF started yesterday and prior Na was stable will get nephro eval for further evacuation and management supportive care case discussed and evaluated by supervising physician Subjective Allergies: Coded Allergies: No Known Allergies (Unverified , 03/02/19) Subjective no signs of resp distress, no CP low grade fever at night, currently afebrile leukocytosis with small trend down, still significant still with intermittent abd pain and Mg-1.0 Objective Last 24 Hour Vital Signs Date Time Temp Pulse Resp B/P (MAP) Pulse Ox O2 Delivery O2 Flow Rate FiO2 03/04/19 08:00 98.1 89 20 104/62 (76) 99 03/04/19 04:00 97.9 104 19 104/64 (77) 96 03/04/19 03:46 107 03/04/19 00:00 98.9 108 18 95/58 (70) 97 03/03/19 23:58 104 03/03/19 21:00 Nasal Cannula 2.0 03/03/19 20:00 98.8 97 18 112/63 (79) 98 03/03/19 19:05 104 03/03/19 16:24 98.2 03/03/19 16:00 98.6 104 18 119/67 (84) 97 03/03/19 16:00 107 03/03/19 12:00 111 03/03/19 12:00 98.2 90 18 115/65 (82) 97 Intake and Output 03/03/19 03/04/19 18:59 06:59 Intake Total 300 ml 1263.46 ml Balance 300 ml 1263.46 ml Intake Oral 300 ml 400 ml IV Total 863.46 ml # Voids 3 2 # Bowel Movements 1 2 Objective General Appearance: no acute distress HEENT: normocephalic, atraumatic, anicteric, mucous membranes moist Respiratory/Chest: lungs clear, no respiratory distress, no accessory muscle use Cardiovascular: regular rhythm, occas ST 100-110 Abdomen: normal bowel sounds - abdomen soft, mild tenderness on palpation , non distended Extremities: no edema, pedal pulses normal Skin: sacral decub st 3 Neurologic/Psychiatric: abnormal gait/bedbound, alert, oriented, , responsive Microbiology Date/Time Source Procedure Growth Status 03/02/19 04:15 Blood Blood Culture - Preliminary NO GROWTH AFTER 48 HOURS Resulted 03/02/19 04:00 Blood Blood Culture - Preliminary NO GROWTH AFTER 48 HOURS Resulted 03/02/19 04:34 Other(Specify in comment) Gram Stain - Final Resulted 03/02/19 04:34 Other(Specify in comment) Wound Culture - Preliminary NO GROWTH AFTER 24 HOURS Resulted 03/02/19 04:34 Nasal Nares MRSA Culture - Final Staphylococcus Aureus - Mrsa Complete 03/03/19 07:50 Stool Clostridium difficile Toxin Assay - Final Complete 03/02/19 06:15 Urine,Clean Catch Urine Culture - Final Staphylococcus Aureus - Mrsa Complete 03/02/19 04:34 Rectum VRE Culture - Final Enterococcus Faecium - Vre Complete Laboratory Tests 03/04/19 00:00: HIV-1 Antibody [Pending], HIV-2 Antibody [Pending] 03/04/19 06:32: White Blood Count 16.8H, Red Blood Count 2.73L, Hemoglobin 7.4L, Hematocrit 23.4L, Mean Corpuscular Volume 86, Mean Corpuscular Hemoglobin 27.2, Mean Corpuscular Hemoglobin Concent 31.7L, Red Cell Distribution Width 15.7H, Platelet Count 219, Mean Platelet Volume 7.0, Neutrophils (%) (Auto) , Lymphocytes (%) (Auto) , Monocytes (%) (Auto) , Eosinophils (%) (Auto) , Basophils (%) (Auto) , Differential Total Cells Counted 100, Neutrophils % ( Manual) 71, Lymphocytes % (Manual) 15L, Monocytes % (Manual) 11H, Eosinophils % (Manual) 0, Basophils % (Manual) 0, Band Neutrophils 3, Platelet Estimate Adequate, Platelet Morphology Normal, Hypochromasia 1+, Anisocytosis 1+, HIV (1& 2) Antibody Rapid Preliminary positiveH 03/04/19 08:25: Sodium Level 123L, Potassium Level 3.3L, Chloride Level 97L, Carbon Dioxide Level 24, Anion Gap 2L, Blood Urea Nitrogen 18, Creatinine 1.0, Estimat Glomerular Filtration Rate > 60, Glucose Level 110H, Calcium Level 8.0L, Magnesium Level 2.1 Current Medications Medications (Trade) Dose Ordered Sig/Deborah Route PRN Reason Start Time Stop Time Status Last Admin Dose Admin Acetaminophen (Tylenol) 650 mg Q4H PRN ORAL Mild Pain/Temp > 100.5 03/02/19 08:15 04/01/19 08:14 03/02/19 23:47 Acetaminophen/ Hydrocodone Bitart ([place] 5/325) 1 tab Q4H PRN ORAL Moderate Pain (Pain Scale 4-6) 03/02/19 08:15 03/09/19 08:14 Cefepime HCl 1 gm/ Dextrose 55 ml @ 110 mls/hr EVERY 12 HOURS IVPB 03/02/19 09:00 03/09/19 08:59 03/04/19 08:35 Dextrose/Sodium Chloride 1,000 ml @ 75 mls/hr [id number] IV 03/03/19 10:00 04/02/19 09:59 03/03/19 23:20 Metronidazole 100 ml @ 100 mls/hr Q8HR IVPB 03/02/19 14:00 03/09/19 13:59 03/04/19 05:00 Morphine Sulfate (Morphine Sulfate) 2 mg Q4H PRN IVP Severe Pain (Pain Scale 7-10) 03/02/19 08:15 03/09/19 08:14 03/03/19 20:59 Ondansetron HCl (Zofran) 4 mg Q4H PRN IVP Nausea & Vomiting 03/02/19 08:15 04/01/19 08:14 Tamsulosin HCl (Flomax) 0.4 mg DAILY ORAL 03/03/19 09:00 04/02/19 08:59 03/04/19 08:35 Luciana Camarillo NP Mar 04, 2019 10:05
[2019-03-04] MEDS ORDERED: D5 1/2NS 1000ml IV ONE (10:30)
--- NOTE | 2019-03-04 10:33 | Surgery Progress Note ---
Surgery Progress Note Subjective Additional Comments leukocytosis trending down abnormal electrolytes being replaced comfortable no complaints no n/v//fc overall improving no abdominal pain Objective Last 24 Hour Vital Signs Date Time Temp Pulse Resp B/P (MAP) Pulse Ox O2 Delivery O2 Flow Rate FiO2 03/04/19 08:00 98.1 89 20 104/62 (76) 99 03/04/19 04:00 97.9 104 19 104/64 (77) 96 03/04/19 03:46 107 03/04/19 00:00 98.9 108 18 95/58 (70) 97 03/03/19 23:58 104 03/03/19 21:00 Nasal Cannula 2.0 03/03/19 20:00 98.8 97 18 112/63 (79) 98 03/03/19 19:05 104 03/03/19 16:24 98.2 03/03/19 16:00 98.6 104 18 119/67 (84) 97 03/03/19 16:00 107 03/03/19 12:00 111 03/03/19 12:00 98.2 90 18 115/65 (82) 97 I&O Intake and Output 03/03/19 03/04/19 18:59 06:59 Intake Total 300 ml 1263.46 ml Balance 300 ml 1263.46 ml Intake Oral 300 ml 400 ml IV Total 863.46 ml # Voids 3 2 # Bowel Movements 1 2 Dressing: saturated Wound: clean Cardiovascular: RSR Respiratory: clear Abdomen: soft, flat, non-tender, present bowel sounds Extremities: no cyanosis, other Laboratory Tests Test 03/04/19 00:00 03/04/19 06:32 03/04/19 08:25 HIV-1 Antibody Pending HIV-2 Antibody Pending White Blood Count 16.8 K/UL (4.8-10.8) H Red Blood Count 2.73 M/UL (4.70-6.10) L Hemoglobin 7.4 G/DL (14.2-18.0) L Hematocrit 23.4 % (42.0-52.0) L Mean Corpuscular Volume 86 FL (80-99) Mean Corpuscular Hemoglobin 27.2 PG (27.0-31.0) Mean Corpuscular Hemoglobin Concent 31.7 G/DL (32.0-36.0) L Red Cell Distribution Width 15.7 % (11.6-14.8) H Platelet Count 219 K/UL (150-450) Mean Platelet Volume 7.0 FL (6.5-10.1) Neutrophils (%) (Auto) % (45.0-75.0) Lymphocytes (%) (Auto) % (20.0-45.0) Monocytes (%) (Auto) % (1.0-10.0) Eosinophils (%) (Auto) % (0.0-3.0) Basophils (%) (Auto) % (0.0-2.0) Differential Total Cells Counted 100 Neutrophils % (Manual) 71 % (45-75) Lymphocytes % (Manual) 15 % (20-45) L Monocytes % (Manual) 11 % (1-10) H Eosinophils % (Manual) 0 % (0-3) Basophils % (Manual) 0 % (0-2) Band Neutrophils 3 % (0-8) Platelet Estimate Adequate Platelet Morphology Normal Hypochromasia 1+ Anisocytosis 1+ HIV (1&2) Antibody Rapid Preliminary positive Sodium Level 123 MMOL/L (136-145) L Potassium Level 3.3 MMOL/L (3.5-5.1) L Chloride Level 97 MMOL/L (98-107) L Carbon Dioxide Level 24 MMOL/L (21-32) Anion Gap 2 mmol/L (5-15) L Blood Urea Nitrogen 18 mg/dL (7-18) Creatinine 1.0 MG/DL (0.55-1.30) Estimat Glomerular Filtration Rate > 60 mL/min (>60) Glucose Level 110 MG/DL (74-106) H Calcium Level 8.0 MG/DL (8.5-10.1) L Magnesium Level 2.1 MG/DL (1.8-2.4) Plan Problems: (1) Decubitus skin ulcer Assessment & Plan: Pt presented on admission with multiple pressure injuries. Blood blisters to ezequiel R tibia and medial L tibia. Full Thickness stage 3 pressure injury Sacrum . Base of wound 60% biofilm,40% viable. Edges are macerated bordered by black and fluctuant base with additional wounds at R sacrum. No odor or exudate noted. Pt complained of pain at site when in supine. Rigidity noted to both lower extremities and pt heels are in continuously in contact. DTPI noted to medial R heel . Base of wound with purple with maroon borders and fluctuant at base (L)4cm x (W)4cm .Periwound R heel is boggy but blanchable. DTPI medial L heel . Base of wound is maroon with scattered purple areas and is fluctuant at base. Periwound L heel is boggy but blanchable. Tx.Plan: Cleanse Sacral wound with Saline. Apply Therahoney. Apply Moisture Barrier periwound. Cover with Optifoam drsg every 3 days and prn. Apply Cavilon Skin Barrier to blood blisters R and L tibia. Cover each wound with Optifoam drsg. Change every 7 days and prn. Apply Cavilon Skin Barrier to both heels. Cover each heel with Optifoam drsg. Change every 7 days and prn. APM/KRISTI Mattress overlay. Reposition at least every 2hours or as tolerated. Place pillow between lower ext to keep Heels apart. Off-load heels with pillow. (2) Colitis Assessment & Plan: Findings: Significant artifact limits evaluation. The lung bases notable for posterior basal atelectasis. Patchy groundglass opacities also noted nonspecific. Trace pericardial fluid demonstrated. No obvious hydronephrosis or stones identified. No obvious free fluid identified. Question of gallstones. Aortoiliac calcifications are present. There is thickening of the wall of the colon especially noted on the right side involving the ascending colon and cecum. Findings suspicious for colitis. Correlate clinically. There is thickening of the wall the urinary bladder. 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 Anasarca noted. IMPRESSION: Limited evaluation due to technical artifacts. Suspected colitis with the thickening of the wall the colon. Correlate clinically. Thickening of the wall the urinary bladder. Correlate for cystitis. (3) Sepsis Assessment & Plan: febrile t max 104 - resolving low grade now leukocytosis lactic acidosis - resolved exam improved CT with colitis likely etiology of sepsis pending blood cultures ABX as per ID will follow with exam and recs okay for diet (4) Nausea vomiting and diarrhea César Romero Mar 04, 2019 10:33
--- NOTE | 2019-03-04 11:00 | NUR ---
PT Note Acknowledged order for PT eval/tx. Attempted to see patient but patient states that he needs to eat his breakfast first. Noted breakfast tray to be untouched at bedside. Will attempt again later if time permits.
--- NOTE | 2019-03-04 11:12 | Consultation ---
Consult Note Consult Note asked to evaluate at the request of Dr Martel / Samaria for HypoNatremia This is 63-year-old [facility]p patient with a history of hypertension COPD. History of cocaine abuse in the past. He is bedbound. He presents with chief complaint of fever, nausea vomiting and diarrhea. Onset tonight. Per usp note, fever was 104. Denies any medication. Vomiting is nonbloody nonbilious. Diarrhea is watery. Denies any other complaint. No Known Allergies (Unverified , 03/02/19) Past Medical History: see triage record, old chart reviewed, HTN, COPD Hx Hypertension: Yes Hx COPD: Yes - emphysema examined data reviewed Discussed with Luciana Camarillo NP . Assessment/Plan HypoNatremia: Etiology? Need more data to pin point the etiology Check: TSH , Uric Acid- Urine Osm. Serum Osm. Lipids Other Dx: sepsis ( leukocytosis, fever, lactic acidosis, evidence of infection) colitis elevated troponin r/o ACS vs demand ischemia tachycardia dehydration + HIV asymptomatic bacteriuria /? UTI with MRSA- hx of HTN COPD BPH sacral decub st 3 POA anemia severe hypo Mg , likely due to diarrhea While waiting for more Data: Urine tox screen 3% Saline IV K supplement Protonix Zander Razo MD Mar 04, 2019 11:12
[2019-03-04 12:00] VITALS: BP 103/60
[2019-03-04] MEDS ORDERED: NaCl 3% 500ml 250 ML IV SCH (12:00)
[2019-03-04 12:42] LABS: CHOLESTEROL 76 MG/DL (< 200); HDL CHOLESTEROL 9 MG/DL (40-60); PHOSPHORUS 2.3 MG/DL (2.5-4.9); TRIGLYCERIDES 151 MG/DL (30-150)
--- NOTE | 2019-03-04 13:45 | Internal Med Progress Note ---
Subjective Date of Service: Mar 04, 2019 Physician Name Amauri Mera Attending Physician Oscar Martel MD Current Medications Medications (Trade) Dose Ordered Sig/Deborah Route PRN Reason Start Time Stop Time Status Last Admin Dose Admin Acetaminophen (Tylenol) 650 mg Q4H PRN ORAL Mild Pain/Temp > 100.5 03/02/19 08:15 04/01/19 08:14 03/02/19 23:47 Acetaminophen/ Hydrocodone Bitart ([place] 5/325) 1 tab Q4H PRN ORAL Moderate Pain (Pain Scale 4-6) 03/02/19 08:15 03/09/19 08:14 Cefepime HCl 1 gm/ Dextrose 55 ml @ 110 mls/hr EVERY 12 HOURS IVPB 03/02/19 09:00 03/09/19 08:59 03/04/19 08:35 Metronidazole 100 ml @ 100 mls/hr Q8HR IVPB 03/02/19 14:00 03/09/19 13:59 03/04/19 05:00 Morphine Sulfate (Morphine Sulfate) 2 mg Q4H PRN IVP Severe Pain (Pain Scale 7-10) 03/02/19 08:15 03/09/19 08:14 03/03/19 20:59 Ondansetron HCl (Zofran) 4 mg Q4H PRN IVP Nausea & Vomiting 03/02/19 08:15 04/01/19 08:14 Pantoprazole (Protonix) 40 mg EVERY 12 HOURS ORAL 03/04/19 21:00 04/03/19 20:59 Potassium Chloride 100 ml @ 100 mls/hr Q1H IVPB 03/04/19 12:00 03/04/19 15:59 Sodium Chloride 250 ml @ 30 mls/hr ONCE IV 03/04/19 12:00 03/04/19 14:00 03/04/19 12:43 Tamsulosin HCl (Flomax) 0.4 mg BID ORAL 03/04/19 18:00 04/02/19 08:59 Allergies: Coded Allergies: No Known Allergies (Unverified , 03/02/19) ROS Limited/Unobtainable: No Constitutional: Reports: no symptoms HEENT: Reports: no symptoms Cardiovascular: Reports: no symptoms Respiratory: Reports: no symptoms Gastrointestinal/Abdominal: Reports: no symptoms Genitourinary: Reports: no symptoms Neurologic/Psychiatric: Reports: no symptoms Subjective 63 YO M admitted with abdominal pain, nausea and vomiting. Now Colitis and elevated troponin. Cover for Int Crow-Dr Martel Objective Last Vital Signs Date Time Temp Pulse Resp B/P (MAP) Pulse Ox O2 Delivery O2 Flow Rate FiO2 03/04/19 12:00 97 03/04/19 09:00 Nasal Cannula 2.0 03/04/19 08:00 98.1 20 104/62 (76) 99 Laboratory Tests Test 03/04/19 00:00 03/04/19 06:32 03/04/19 08:25 HIV-1 Antibody Pending HIV-2 Antibody Pending White Blood Count 16.8 K/UL (4.8-10.8) H Red Blood Count 2.73 M/UL (4.70-6.10) L Hemoglobin 7.4 G/DL (14.2-18.0) L Hematocrit 23.4 % (42.0-52.0) L Mean Corpuscular Volume 86 FL (80-99) Mean Corpuscular Hemoglobin 27.2 PG (27.0-31.0) Mean Corpuscular Hemoglobin Concent 31.7 G/DL (32.0-36.0) L Red Cell Distribution Width 15.7 % (11.6-14.8) H Platelet Count 219 K/UL (150-450) Mean Platelet Volume 7.0 FL (6.5-10.1) Neutrophils (%) (Auto) % (45.0-75.0) Lymphocytes (%) (Auto) % (20.0-45.0) Monocytes (%) (Auto) % (1.0-10.0) Eosinophils (%) (Auto) % (0.0-3.0) Basophils (%) (Auto) % (0.0-2.0) Differential Total Cells Counted 100 Neutrophils % (Manual) 71 % (45-75) Lymphocytes % (Manual) 15 % (20-45) L Monocytes % (Manual) 11 % (1-10) H Eosinophils % (Manual) 0 % (0-3) Basophils % (Manual) 0 % (0-2) Band Neutrophils 3 % (0-8) Platelet Estimate Adequate Platelet Morphology Normal Hypochromasia 1+ Anisocytosis 1+ HIV (1&2) Antibody Rapid Preliminary positive Sodium Level 123 MMOL/L (136-145) L Potassium Level 3.3 MMOL/L (3.5-5.1) L Chloride Level 97 MMOL/L (98-107) L Carbon Dioxide Level 24 MMOL/L (21-32) Anion Gap 2 mmol/L (5-15) L Blood Urea Nitrogen 18 mg/dL (7-18) Creatinine 1.0 MG/DL (0.55-1.30) Estimat Glomerular Filtration Rate > 60 mL/min (>60) Glucose Level 110 MG/DL (74-106) H Osmolality 286 mOsm/kg (297-317) L Uric Acid 7.8 MG/DL (2.6-7.2) H Calcium Level 8.0 MG/DL (8.5-10.1) L Phosphorus Level 2.3 MG/DL (2.5-4.9) L Magnesium Level 2.1 MG/DL (1.8-2.4) Triglycerides Level 151 MG/DL (30-150) H Cholesterol Level 76 MG/DL (< 200) LDL Cholesterol 23 mg/dL (<100) HDL Cholesterol 9 MG/DL (40-60) L Cholesterol/HDL Ratio 8.4 (3.3-4.4) H Thyroid Stimulating Hormone (TSH) 1.243 uiU/mL (0.358-3.740) Microbiology Date/Time Source Procedure Growth Status 03/02/19 04:15 Blood Blood Culture - Preliminary NO GROWTH AFTER 48 HOURS Resulted 03/02/19 04:00 Blood Blood Culture - Preliminary NO GROWTH AFTER 48 HOURS Resulted 03/02/19 04:34 Other(Specify in comment) Gram Stain - Final Resulted 03/02/19 04:34 Other(Specify in comment) Wound Culture - Preliminary NO GROWTH AFTER 24 HOURS Resulted 03/02/19 04:34 Nasal Nares MRSA Culture - Final Staphylococcus Aureus - Mrsa Complete 03/03/19 07:50 Stool Clostridium difficile Toxin Assay - Final Complete 03/02/19 06:15 Urine,Clean Catch Urine Culture - Final Staphylococcus Aureus - Mrsa Complete 03/02/19 04:34 Rectum VRE Culture - Final Enterococcus Faecium - Vre Complete Intake and Output 03/03/19 03/04/19 18:59 06:59 Intake Total 300 ml 1263.46 ml Balance 300 ml 1263.46 ml Intake Oral 300 ml 400 ml IV Total 863.46 ml # Voids 3 2 # Bowel Movements 1 2 Objective PHYSICAL EXAMINATION: GENERAL: The patient is awake, responsive, no acute distress, but chronically cachectic and malnutrition. HEAD AND NECK: Pupils are equal and reactive to light. Extraocular movements intact. NECK: Supple. No JVD. LUNGS: Good air entry. No wheezing or rales. Decreased in bases. HEART: S1 and S2. Distant heart sounds. No murmur or gallops. ABDOMEN: Soft, mildly distended. No rebound tenderness. Generalized tenderness. RECTAL: Refused and deferred. GENITOURINARY: Refused and deferred. PSYCHIATRIC: Mood and affect intact. Gait was not assessed due to the patient's status. SKIN: Full thickness stage III pressure ulcer in the sacrum was noted presented on admission. NEUROLOGIC: Cranial nerves II through XII grossly intact. The patient moving all extremities. Lower extremities weaker than upper extremity and tender to touch in the lower extremity. Assessment/Plan Assessment/Plan ASSESSMENT: 1. Mild elevation of troponin, possible acute myocardial infarction versus demand ischemia. 2. Severe dehydration with hypovolemia. 3. Anemia most likely secondary to the intra-abdominal infection. 4. Colitis. 5. BPH. 6. Hypertension presently hypotensive. 7. COPD. 8. Hyponatremia. 9. Pressure ulcer stage III sacrum present on admission. 10. Acute urinary tract infection. PLAN: 1. Admit the patient to monitor unit. We will follow up serial cardiac enzymes. Await cardiology consult=Dr Salas 2. Continue cefepime and Flagyl per ID. Await GI consult=Dr Interiano 3. Dr. Chavarria from Pulmonary Critical Care 4. Dr. Romero from General surgery. 5. Dr Ramírez= wound care of the sacral ulcer. Monitor laboratory as well as cultures. Code status Full code. DVT prophylaxis with heparin subcutaneous. Amauri Mera MD Mar 04, 2019 13:45
[2019-03-04] MEDS: Morphine Sulfate 2mg/ml Inj(IV/IM USE ONLY) IVP PRN (15:23)
--- NOTE | 2019-03-04 15:27 | Cardiology Progress Note ---
Assessment/Plan Problem List: (1) Troponin level elevated (2) Colitis (3) COPD exacerbation (4) Sepsis (5) Hypertension (6) Hyponatremia Status: stable, progressing Status Narrative Cardiac status stable. Has hx of HTN, but normotensive currently, off meds. Mild troponin elevation on adm c/w demand ischemia. EKG shows sinus tachycardia and rt axis , without ST changes ( admission) ECHO w/o wall motion abnormalities Hyponatremia noted today - nephrology evaluating Colitis - being treated w/ Iv abx and bowel rest. (adv to clear liquids today). WBC decreasing. Assessment/Plan Continue current iv antibiotics Troponin levels decreasing - consider ischemia evaluation when pt more stable. Management of low Na per Dr. Razo. Subjective ROS Limited/Unobtainable: No Subjective Cardiology for Dr. Salas Pt appears comfortable. No c/o abd pain, CP, palpitations, dyspnea Objective Last 24 Hour Vital Signs Date Time Temp Pulse Resp B/P (MAP) Pulse Ox O2 Delivery O2 Flow Rate FiO2 03/04/19 12:00 98.3 75 18 103/60 (74) 98 03/04/19 12:00 97 03/04/19 09:00 Nasal Cannula 2.0 03/04/19 08:00 98.1 89 20 104/62 (76) 99 03/04/19 08:00 99 03/04/19 08:00 104 03/04/19 04:00 97.9 104 19 104/64 (77) 96 03/04/19 03:46 107 03/04/19 00:00 98.9 108 18 95/58 (70) 97 03/03/19 23:58 104 03/03/19 21:00 Nasal Cannula 2.0 03/03/19 20:00 98.8 97 18 112/63 (79) 98 03/03/19 19:05 104 03/03/19 16:24 98.2 03/03/19 16:00 98.6 104 18 119/67 (84) 97 03/03/19 16:00 107 General Appearance: WD/WN, no apparent distress, alert EENT: PERRL/EOMI Neck: non-tender, no JVD Rhythm: NSR Cardiovascular: normal rate, regular rhythm Respiratory/Chest: lungs clear Abdomen: soft, no mass, hypoactive bowel sounds, other - mild distension, nontender Extremities: trace edema, other - dry dressing over R ya Pulses: decreased: PT (L), PT (R), DP (L), DP (R) Intake and Output 03/03/19 03/04/19 18:59 06:59 Intake Total 300 ml 1263.46 ml Balance 300 ml 1263.46 ml Intake Oral 300 ml 400 ml IV Total 863.46 ml # Voids 3 2 # Bowel Movements 1 2 Laboratory Tests Test 03/04/19 00:00 03/04/19 06:32 03/04/19 08:25 HIV-1 Antibody Pending HIV-2 Antibody Pending White Blood Count 16.8 K/UL (4.8-10.8) H Red Blood Count 2.73 M/UL (4.70-6.10) L Hemoglobin 7.4 G/DL (14.2-18.0) L Hematocrit 23.4 % (42.0-52.0) L Mean Corpuscular Volume 86 FL (80-99) Mean Corpuscular Hemoglobin 27.2 PG (27.0-31.0) Mean Corpuscular Hemoglobin Concent 31.7 G/DL (32.0-36.0) L Red Cell Distribution Width 15.7 % (11.6-14.8) H Platelet Count 219 K/UL (150-450) Mean Platelet Volume 7.0 FL (6.5-10.1) Neutrophils (%) (Auto) % (45.0-75.0) Lymphocytes (%) (Auto) % (20.0-45.0) Monocytes (%) (Auto) % (1.0-10.0) Eosinophils (%) (Auto) % (0.0-3.0) Basophils (%) (Auto) % (0.0-2.0) Differential Total Cells Counted 100 Neutrophils % (Manual) 71 % (45-75) Lymphocytes % (Manual) 15 % (20-45) L Monocytes % (Manual) 11 % (1-10) H Eosinophils % (Manual) 0 % (0-3) Basophils % (Manual) 0 % (0-2) Band Neutrophils 3 % (0-8) Platelet Estimate Adequate Platelet Morphology Normal Hypochromasia 1+ Anisocytosis 1+ HIV (1&2) Antibody Rapid Preliminary positive Sodium Level 123 MMOL/L (136-145) L Potassium Level 3.3 MMOL/L (3.5-5.1) L Chloride Level 97 MMOL/L (98-107) L Carbon Dioxide Level 24 MMOL/L (21-32) Anion Gap 2 mmol/L (5-15) L Blood Urea Nitrogen 18 mg/dL (7-18) Creatinine 1.0 MG/DL (0.55-1.30) Estimat Glomerular Filtration Rate > 60 mL/min (>60) Glucose Level 110 MG/DL (74-106) H Osmolality 286 mOsm/kg (297-317) L Uric Acid 7.8 MG/DL (2.6-7.2) H Calcium Level 8.0 MG/DL (8.5-10.1) L Phosphorus Level 2.3 MG/DL (2.5-4.9) L Magnesium Level 2.1 MG/DL (1.8-2.4) Triglycerides Level 151 MG/DL (30-150) H Cholesterol Level 76 MG/DL (< 200) LDL Cholesterol 23 mg/dL (<100) HDL Cholesterol 9 MG/DL (40-60) L Cholesterol/HDL Ratio 8.4 (3.3-4.4) H Thyroid Stimulating Hormone (TSH) 1.243 uiU/mL (0.358-3.740) Microbiology Date/Time Source Procedure Growth Status 03/02/19 04:15 Blood Blood Culture - Preliminary NO GROWTH AFTER 48 HOURS Resulted 03/02/19 04:00 Blood Blood Culture - Preliminary NO GROWTH AFTER 48 HOURS Resulted 03/02/19 04:34 Other(Specify in comment) Gram Stain - Final Resulted 03/02/19 04:34 Other(Specify in comment) Wound Culture - Preliminary NO GROWTH AFTER 24 HOURS Resulted 03/02/19 04:34 Nasal Nares MRSA Culture - Final Staphylococcus Aureus - Mrsa Complete 03/03/19 07:50 Stool Clostridium difficile Toxin Assay - Final Complete 03/02/19 06:15 Urine,Clean Catch Urine Culture - Final Staphylococcus Aureus - Mrsa Complete 03/02/19 04:34 Rectum VRE Culture - Final Enterococcus Faecium - Vre Complete Sariah Ruth MD Mar 04, 2019 15:27
[2019-03-04 16:00] VITALS: BP 104/62
--- NOTE | 2019-03-04 19:49 | NUR ---
HAND-OFF: Report given to ANJEL Raza. Pt. in stable condition.
--- NOTE | 2019-03-04 19:57 | NUR ---
NURSE NOTES: Received pt from ANJEL Gee. Pt awake, alert, and talkative. Bed in lowest position. Call light within reach. Will continue to monitor.
[2019-03-04 20:00] VITALS: BP 109/68
[2019-03-05] VITALS: BP 107/65
[2019-03-05 04:00] VITALS: BP 129/73
[2019-03-05] MEDS: Morphine Sulfate 2mg/ml Inj(IV/IM USE ONLY) IVP PRN ×3 (05:18→21:20)
--- NOTE | 2019-03-05 07:29 | NUR ---
HAND-OFF: Report given to ANJEL Garzon. Pt stable.
--- NOTE | 2019-03-05 07:49 | Infectious Diseases Prog Note ---
Assessment/Plan Assessment/Plan 63yo man admitted with abdominal pain. Fever, SP Leukocytosis, improving Lactic acidosis, improving diarrhea/colitis CT: Suspected colitis with the thickening of the wall the colon. Correlate clinically. Thickening of the wall the urinary bladder. Correlate for cystitis. C diff negative unlikely UTI UA negative UCx Staph, likely colonizer HIV Screen positive pending confirmatory test 1. COPD. 2. Hypertension. 3. BPH. 4. History of cocaine abuse in the past. 5. Bedbound. PLAN: continue cefepime and flagyl #4 monitor CBC, temp f/u HIV confirmatory test f/u stool culture f/u bcx Thank you, Dr. Martel, for allowing me to participate in the care of this patient. I will follow the patient with you during this admission. Subjective Allergies: Coded Allergies: No Known Allergies (Unverified , 03/02/19) Subjective Afebrile. Still with abdominal pain and diarrhea. Objective Vital Signs Last 24 Hour Vital Signs Date Time Temp Pulse Resp B/P (MAP) Pulse Ox O2 Delivery O2 Flow Rate FiO2 03/05/19 04:00 98.6 89 20 129/73 (91) 99 03/05/19 04:00 83 03/05/19 00:00 88 03/05/19 00:00 98.4 89 18 107/65 (79) 100 03/04/19 21:00 Nasal Cannula 2.0 03/04/19 20:00 98.6 89 18 109/68 (82) 98 03/04/19 20:00 87 03/04/19 16:00 92 03/04/19 16:00 98.3 75 18 104/62 (76) 98 03/04/19 15:53 98.3 03/04/19 12:00 98.3 75 18 103/60 (74) 98 03/04/19 12:00 97 03/04/19 09:00 Nasal Cannula 2.0 03/04/19 08:00 98.1 89 20 104/62 (76) 99 03/04/19 08:00 99 03/04/19 08:00 104 Height (Feet): 6 Height (Inches): 1.00 Weight (Pounds): 200 Objective HEENT: No pale conjunctivae. No icterus. NECK: No lymphadenopathy. CHEST: Coarse breathing sounds. HEART: S1 and S2. ABDOMEN: Mildly distended. The patient has lower abdominal pain. No rebound. EXTREMITIES: No cellulitis or cyanosis. SKIN: Stage III decubitus in the sacral area, not grossly infected. Microbiology Date/Time Source Procedure Growth Status 03/03/19 07:50 Stool Clostridium difficile Toxin Assay - Final Complete Laboratory Tests Test 03/04/19 08:25 03/04/19 16:50 03/05/19 01:41 Sodium Level 123 MMOL/L (136-145) L Potassium Level 3.3 MMOL/L (3.5-5.1) L Chloride Level 97 MMOL/L (98-107) L Carbon Dioxide Level 24 MMOL/L (21-32) Anion Gap 2 mmol/L (5-15) L Blood Urea Nitrogen 18 mg/dL (7-18) Creatinine 1.0 MG/DL (0.55-1.30) Estimat Glomerular Filtration Rate > 60 mL/min (>60) Glucose Level 110 MG/DL (74-106) H Osmolality 286 mOsm/kg (297-317) L Uric Acid 7.8 MG/DL (2.6-7.2) H Calcium Level 8.0 MG/DL (8.5-10.1) L Phosphorus Level 2.3 MG/DL (2.5-4.9) L Magnesium Level 2.1 MG/DL (1.8-2.4) Triglycerides Level 151 MG/DL (30-150) H Cholesterol Level 76 MG/DL (< 200) LDL Cholesterol 23 mg/dL (<100) HDL Cholesterol 9 MG/DL (40-60) L Cholesterol/HDL Ratio 8.4 (3.3-4.4) H Thyroid Stimulating Hormone (TSH) 1.243 uiU/mL (0.358-3.740) White Blood Count Pending Lymphocytes Pending Percent CD3 Cells Pending Absolute CD3 Count Pending Percent CD4 Cells Pending Absolute CD4 Count Pending T-Lymphocyte CD4/CD8 Ratio Pending Percent CD8 Cells Pending Absolute CD8 Count Pending HIV-1 RNA (PCR) log10 Value Pending HIV-1 RNA Ultraquantitative (PCR) Pending Urine Osmolality 422 mOsm/kg (429-449) L Urine Random Sodium < 20 mmol/L (20-110) L Urine Opiates Screen Positive (NEGATIVE) H Urine Barbiturates Screen Negative (NEGATIVE) Phencyclidine (PCP) Screen Negative (NEGATIVE) Urine Amphetamines Screen Negative (NEGATIVE) Urine Benzodiazepines Screen Negative (NEGATIVE) Urine Cocaine Screen Negative (NEGATIVE) Urine Marijuana (THC) Screen Negative (NEGATIVE) Current Medications Medications (Trade) Dose Ordered Sig/Deborah Route PRN Reason Start Time Stop Time Status Last Admin Dose Admin Acetaminophen (Tylenol) 650 mg Q4H PRN ORAL Mild Pain/Temp > 100.5 03/02/19 08:15 04/01/19 08:14 03/02/19 23:47 Acetaminophen/ Hydrocodone Bitart ([place] 5/325) 1 tab Q4H PRN ORAL Moderate Pain (Pain Scale 4-6) 03/02/19 08:15 03/09/19 08:14 Cefepime HCl 1 gm/ Dextrose 55 ml @ 110 mls/hr EVERY 12 HOURS IVPB 03/02/19 09:00 03/09/19 08:59 03/04/19 21:22 Metronidazole 100 ml @ 100 mls/hr Q8HR IVPB 03/02/19 14:00 03/09/19 13:59 03/05/19 05:18 Morphine Sulfate (Morphine Sulfate) 2 mg Q4H PRN IVP Severe Pain (Pain Scale 7-10) 03/02/19 08:15 03/09/19 08:14 03/05/19 05:18 Ondansetron HCl (Zofran) 4 mg Q4H PRN IVP Nausea & Vomiting 03/02/19 08:15 04/01/19 08:14 Pantoprazole (Protonix) 40 mg EVERY 12 HOURS ORAL 03/04/19 21:00 04/03/19 20:59 Tamsulosin HCl (Flomax) 0.4 mg BID ORAL 03/04/19 18:00 04/02/19 08:59 03/04/19 18:20 Olegario Carroll MD Mar 05, 2019 07:49
--- NOTE | 2019-03-05 08:05 | NUR ---
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 pt AOx4. Pt is having breakfast at this time . Call light is within reach. Bed is in lowest position and locked. Will continue to monitor pt
[2019-03-05 08:23] LABS: EOSINOPHILS % (AUTO) 5.1 % (0.0-3.0); HEMATOCRIT 23.4 % (42.0-52.0); HEMOGLOBIN 8.1 G/DL (14.2-18.0); LYMPHOCYTES % (AUTO) 19.5 % (20.0-45.0); MEAN CORPUSCULAR VOLUME 81 FL (80-99); MONOCYTES % (AUTO) 12.6 % (1.0-10.0); NEUTROPHILS % (AUTO) 61.9 % (45.0-75.0); PLATELET COUNT 215 K/UL (150-450); RED BLOOD COUNT 2.88 M/UL (4.70-6.10); WHITE BLOOD COUNT 12.7 K/UL (4.8-10.8)
--- NOTE | 2019-03-05 08:45 | NUR ---
NURSE NOTES: pt refusing physical assessment. pt does not want to be moved or touch.
[2019-03-05 08:51] LABS: ALANINE AMINOTRANSFERASE 8 U/L (12-78); ALBUMIN 1.6 G/DL (3.4-5.0); ALBUMIN/GLOBULIN RATIO 0.3 (1.0-2.7); ALKALINE PHOSPHATASE 69 U/L (46-116); ANION GAP 6 mmol/L (5-15); ASPARTATE AMINO TRANSFERASE 25 U/L (15-37); BILIRUBIN,TOTAL 0.4 MG/DL (0.2-1.0); BLOOD UREA NITROGEN 13 mg/dL (7-18); CALCIUM 7.8 MG/DL (8.5-10.1); CARBON DIOXIDE 24 MMOL/L (21-32); CHLORIDE 104 MMOL/L (98-107); CREATININE 0.7 MG/DL (0.55-1.30); PHOSPHORUS 2.1 MG/DL (2.5-4.9); SODIUM 133 MMOL/L (136-145)
[2019-03-05 09:00] VITALS: BP 117/66
--- NOTE | 2019-03-05 09:52 | Surgery Progress Note ---
Surgery Progress Note Subjective Additional Comments patient seen and examined at bedside states he is feeling better abdominal cramping but no pain n on/v/f/c wants regular diet Objective Last 24 Hour Vital Signs Date Time Temp Pulse Resp B/P (MAP) Pulse Ox O2 Delivery O2 Flow Rate FiO2 03/05/19 09:00 96.8 82 20 117/66 (83) 94 03/05/19 04:00 98.6 89 20 129/73 (91) 99 03/05/19 04:00 83 03/05/19 00:00 88 03/05/19 00:00 98.4 89 18 107/65 (79) 100 03/04/19 21:00 Nasal Cannula 2.0 03/04/19 20:00 98.6 89 18 109/68 (82) 98 03/04/19 20:00 87 03/04/19 16:00 92 03/04/19 16:00 98.3 75 18 104/62 (76) 98 03/04/19 15:53 98.3 03/04/19 12:00 98.3 75 18 103/60 (74) 98 03/04/19 12:00 97 I&O Intake and Output 03/04/19 03/05/19 19:00 07:00 Intake Total 540 ml 120 ml Output Total 560 ml Balance -20 ml 120 ml Intake Oral 540 ml 120 ml Output Urine Total 560 ml # Voids 4 # Bowel Movements 1 1 Cardiovascular: RSR Respiratory: clear Abdomen: soft, non-tender, present bowel sounds Extremities: no tenderness, no cyanosis Laboratory Tests Test 03/04/19 16:50 03/05/19 01:41 03/05/19 07:23 White Blood Count Pending 12.7 K/UL (4.8-10.8) H Lymphocytes Pending Percent CD3 Cells Pending Absolute CD3 Count Pending Percent CD4 Cells Pending Absolute CD4 Count Pending T-Lymphocyte CD4/CD8 Ratio Pending Percent CD8 Cells Pending Absolute CD8 Count Pending HIV-1 RNA (PCR) log10 Value Pending HIV-1 RNA Ultraquantitative (PCR) Pending Urine Osmolality 422 mOsm/kg (429-449) L Urine Random Sodium < 20 mmol/L (20-110) L Urine Opiates Screen Positive (NEGATIVE) H Urine Barbiturates Screen Negative (NEGATIVE) Phencyclidine (PCP) Screen Negative (NEGATIVE) Urine Amphetamines Screen Negative (NEGATIVE) Urine Benzodiazepines Screen Negative (NEGATIVE) Urine Cocaine Screen Negative (NEGATIVE) Urine Marijuana (THC) Screen Negative (NEGATIVE) Red Blood Count 2.88 M/UL (4.70-6.10) L Hemoglobin 8.1 G/DL (14.2-18.0) L Hematocrit 23.4 % (42.0-52.0) L Mean Corpuscular Volume 81 FL (80-99) Mean Corpuscular Hemoglobin 28.2 PG (27.0-31.0) Mean Corpuscular Hemoglobin Concent 34.7 G/DL (32.0-36.0) Red Cell Distribution Width 14.0 % (11.6-14.8) Platelet Count 215 K/UL (150-450) Mean Platelet Volume 6.6 FL (6.5-10.1) Neutrophils (%) (Auto) 61.9 % (45.0-75.0) Lymphocytes (%) (Auto) 19.5 % (20.0-45.0) L Monocytes (%) (Auto) 12.6 % (1.0-10.0) H Eosinophils (%) (Auto) 5.1 % (0.0-3.0) H Basophils (%) (Auto) 1.0 % (0.0-2.0) Sodium Level 133 MMOL/L (136-145) #L Potassium Level 4.0 MMOL/L (3.5-5.1) Chloride Level 104 MMOL/L (98-107) Carbon Dioxide Level 24 MMOL/L (21-32) Anion Gap 6 mmol/L (5-15) Blood Urea Nitrogen 13 mg/dL (7-18) Creatinine 0.7 MG/DL (0.55-1.30) Estimat Glomerular Filtration Rate > 60 mL/min (>60) Glucose Level 91 MG/DL (74-106) Uric Acid 7.8 MG/DL (2.6-7.2) H Calcium Level 7.8 MG/DL (8.5-10.1) L Phosphorus Level 2.1 MG/DL (2.5-4.9) L Magnesium Level 1.6 MG/DL (1.8-2.4) L Total Bilirubin 0.4 MG/DL (0.2-1.0) Aspartate Amino Transf (AST/SGOT) 25 U/L (15-37) Alanine Aminotransferase (ALT/SGPT) 8 U/L (12-78) L Alkaline Phosphatase 69 U/L (46-116) Total Protein 6.2 G/DL (6.4-8.2) L Albumin 1.6 G/DL (3.4-5.0) L Globulin 4.6 g/dL Albumin/Globulin Ratio 0.3 (1.0-2.7) L Rapid Plasma Reagin Pending Plan Problems: (1) Decubitus skin ulcer Assessment & Plan: Pt presented on admission with multiple pressure injuries. Blood blisters to ezequiel R tibia and medial L tibia. Full Thickness stage 3 pressure injury Sacrum . Base of wound 60% biofilm,40% viable. Edges are macerated bordered by black and fluctuant base with additional wounds at R sacrum. No odor or exudate noted. Pt complained of pain at site when in supine. Rigidity noted to both lower extremities and pt heels are in continuously in contact. DTPI noted to medial R heel . Base of wound with purple with maroon borders and fluctuant at base (L)4cm x (W)4cm .Periwound R heel is boggy but blanchable. DTPI medial L heel . Base of wound is maroon with scattered purple areas and is fluctuant at base. Periwound L heel is boggy but blanchable. Tx.Plan: Cleanse Sacral wound with Saline. Apply Therahoney. Apply Moisture Barrier periwound. Cover with Optifoam drsg every 3 days and prn. Apply Cavilon Skin Barrier to blood blisters R and L tibia. Cover each wound with Optifoam drsg. Change every 7 days and prn. Apply Cavilon Skin Barrier to both heels. Cover each heel with Optifoam drsg. Change every 7 days and prn. APM/KRISTI Mattress overlay. Reposition at least every 2hours or as tolerated. Place pillow between lower ext to keep Heels apart. Off-load heels with pillow. (2) Colitis Assessment & Plan: Findings: Significant artifact limits evaluation. The lung bases notable for posterior basal atelectasis. Patchy groundglass opacities also noted nonspecific. Trace pericardial fluid demonstrated. No obvious hydronephrosis or stones identified. No obvious free fluid identified. Question of gallstones. Aortoiliac calcifications are present. There is thickening of the wall of the colon especially noted on the right side involving the ascending colon and cecum. Findings suspicious for colitis. Correlate clinically. There is thickening of the wall the urinary bladder. 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 Anasarca noted. IMPRESSION: Limited evaluation due to technical artifacts. Suspected colitis with the thickening of the wall the colon. Correlate clinically. Thickening of the wall the urinary bladder. Correlate for cystitis. (3) Sepsis Assessment & Plan: febrile t max 104 - resolved leukocytosis - improving lactic acidosis - resolved exam improved CT with colitis likely etiology of sepsis cultures noted ABX as per ID will follow with exam and recs okay for diet (4) Nausea vomiting and diarrhea César Romero Mar 05, 2019 09:52
[2019-03-05] MEDS: Cefepime HCl 1 GM in D5W 55 ML IVPB SCH ×2 (09:53→21:08)
[2019-03-05] MEDS: Tamsulosin 0.4mg cap ORAL SCH ×2 (09:54→17:09)
--- NOTE | 2019-03-05 11:49 | Pulmonology Progress Note ---
Assessment/Plan Problems: (1) Sepsis (2) COPD (chronic obstructive pulmonary disease) (3) Nausea vomiting and diarrhea (4) HCAP (healthcare-associated pneumonia) (5) BPH (benign prostatic hyperplasia) (6) Hypertension (7) HIV disease (8) COPD exacerbation Assessment/Plan HIV result noted, CD4 counts are pending respiratory treatment hemodynamically stable titrate fio2 to sat of 92% med/surg pt/ot Subjective ROS Limited/Unobtainable: No Constitutional: Reports: no symptoms HEENT: Repors: no symptoms Respiratory: Reports: no symptoms Allergies: Coded Allergies: No Known Allergies (Unverified , 03/02/19) Objective Last 24 Hour Vital Signs Date Time Temp Pulse Resp B/P (MAP) Pulse Ox O2 Delivery O2 Flow Rate FiO2 03/05/19 09:00 96.8 82 20 117/66 (83) 94 03/05/19 04:00 98.6 89 20 129/73 (91) 99 03/05/19 04:00 83 03/05/19 00:00 88 03/05/19 00:00 98.4 89 18 107/65 (79) 100 03/04/19 21:00 Nasal Cannula 2.0 03/04/19 20:00 98.6 89 18 109/68 (82) 98 03/04/19 20:00 87 03/04/19 16:00 92 03/04/19 16:00 98.3 75 18 104/62 (76) 98 03/04/19 15:53 98.3 03/04/19 12:00 98.3 75 18 103/60 (74) 98 03/04/19 12:00 97 Intake and Output 03/04/19 03/05/19 19:00 07:00 Intake Total 540 ml 120 ml Output Total 560 ml Balance -20 ml 120 ml Intake Oral 540 ml 120 ml Output Urine Total 560 ml # Voids 4 # Bowel Movements 1 1 General Appearance: WD/WN HEENT: normocephalic, atraumatic Respiratory/Chest: chest wall non-tender, lungs clear Cardiovascular: normal peripheral pulses, normal rate Abdomen: normal bowel sounds, soft, non tender Genitourinary: normal external genitalia Skin: no rash Neurologic/Psychiatric: tripe finisher II-XII grossly normal Lymphatic: no neck adenopathy, no groin adenopathy Microbiology Date/Time Source Procedure Growth Status 03/03/19 07:50 Stool Clostridium difficile Toxin Assay - Final Complete Laboratory Tests 03/04/19 16:50: White Blood Count [Pending], Lymphocytes [Pending], Percent CD3 Cells [Pending] , Absolute CD3 Count [Pending], Percent CD4 Cells [Pending], Absolute CD4 Count [Pending], T-Lymphocyte CD4/CD8 Ratio [Pending], Percent CD8 Cells [Pending], Absolute CD8 Count [Pending], HIV-1 RNA (PCR) log10 Value [Pending], HIV-1 RNA Ultraquantitative (PCR) [Pending] 03/05/19 01:41: Urine Osmolality 422L, Urine Random Sodium < 20L, Urine Opiates Screen PositiveH , Urine Barbiturates Screen Negative, Phencyclidine (PCP) Screen Negative, Urine Amphetamines Screen Negative, Urine Benzodiazepines Screen Negative, Urine Cocaine Screen Negative, Urine Marijuana (THC) Screen Negative 03/05/19 07:23: White Blood Count 12.7H, Red Blood Count 2.88L, Hemoglobin 8.1L, Hematocrit 23.4L, Mean Corpuscular Volume 81, Mean Corpuscular Hemoglobin 28.2, Mean Corpuscular Hemoglobin Concent 34.7, Red Cell Distribution Width 14.0, Platelet Count 215, Mean Platelet Volume 6.6, Neutrophils (%) (Auto) 61.9, Lymphocytes (% ) (Auto) 19.5L, Monocytes (%) (Auto) 12.6H, Eosinophils (%) (Auto) 5.1H, Basophils (%) (Auto) 1.0, Sodium Level 133#L, Potassium Level 4.0, Chloride Level 104, Carbon Dioxide Level 24, Anion Gap 6, Blood Urea Nitrogen 13, Creatinine 0.7, Estimat Glomerular Filtration Rate > 60, Glucose Level 91, Uric Acid 7.8H, Calcium Level 7.8L, Phosphorus Level 2.1L, Magnesium Level 1.6L, Total Bilirubin 0.4, Aspartate Amino Transf (AST/SGOT) 25, Alanine Aminotransferase (ALT/SGPT) 8L, Alkaline Phosphatase 69, Total Protein 6.2L, Albumin 1.6L, Globulin 4.6, Albumin/Globulin Ratio 0.3L, Rapid Plasma Reagin [ Pending] Current Medications Medications (Trade) Dose Ordered Sig/Deborah Route PRN Reason Start Time Stop Time Status Last Admin Dose Admin Acetaminophen (Tylenol) 650 mg Q4H PRN ORAL Mild Pain/Temp > 100.5 03/02/19 08:15 04/01/19 08:14 03/02/19 23:47 Acetaminophen/ Hydrocodone Bitart ([place] 5/325) 1 tab Q4H PRN ORAL Moderate Pain (Pain Scale 4-6) 03/02/19 08:15 03/09/19 08:14 Cefepime HCl 1 gm/ Dextrose 55 ml @ 110 mls/hr EVERY 12 HOURS IVPB 03/02/19 09:00 03/09/19 08:59 03/05/19 09:53 Magnesium Sulfate 100 ml @ 100 mls/hr Q1H IV 03/05/19 12:45 03/05/19 14:44 UNV Metronidazole 100 ml @ 100 mls/hr Q8HR IVPB 03/02/19 14:00 03/09/19 13:59 03/05/19 05:18 Morphine Sulfate (Morphine Sulfate) 2 mg Q4H PRN IVP Severe Pain (Pain Scale 7-10) 03/02/19 08:15 03/09/19 08:14 03/05/19 10:00 Ondansetron HCl (Zofran) 4 mg Q4H PRN IVP Nausea & Vomiting 03/02/19 08:15 04/01/19 08:14 Pantoprazole (Protonix) 40 mg EVERY 12 HOURS ORAL 03/04/19 21:00 04/03/19 20:59 03/05/19 09:53 Sodium Phosphate 30 mm/Sodium Chloride 285 ml @ 47.5 mls/hr ONCE ONCE IV 03/05/19 12:45 03/05/19 18:44 UNV Tamsulosin HCl (Flomax) 0.4 mg BID ORAL 03/04/19 18:00 04/02/19 08:59 03/05/19 09:54 Rico Chavarria MD Mar 05, 2019 11:49
[2019-03-05 12:00] VITALS: BP 112/66
--- NOTE | 2019-03-05 13:15 | GI Initial Consult Note ---
History of Present Illness General Date patient seen: Mar 05, 2019 Time patient seen: 13:10 Reason for Hospitalization: Fever Referring physician: BRIAN SYED Reason for Consultation: COLITIS Present Illness HPI This is 63-year-old detention patient with a history of hypertension COPD. History of cocaine abuse in the past. He is bedbound. He presents with chief complaint of fever, nausea vomiting and diarrhea. Onset tonight. Per detention note, fever was 104. Denies any medication. Vomiting is nonbloody nonbilious. Diarrhea is watery. Denies any other complaint. GI consulted for reported abdominal pain. Patient seen, awake alert oriented x4 no apparent distress. At the time of evaluation, the patient denied any abdominal pain. The patient did report having multiple episodes of diarrhea per day. The abdomen was soft, nontender nondistended. Patient denied any history of endoscopic or colonoscopy. Abdominal pelvis CT was performed suspected colitis with a thickening of the wall of the colon. The patient presented to the emergency room with initial white count of 23.6, currently at 12.7. Home Meds Reported Medications Losartan Potassium* (COZAAR*) 50 Mg Tablet, 100 MG ORAL DAILY, TAB 03/02/19 Famotidine* (Pepcid 20mg tablet*) 20 Mg Tablet, 20 MG ORAL TWICE A DAY, #60 TAB 0 Refills 03/02/19 Tamsulosin HCl (Flomax) 0.4 Mg Cap.er.24h, 0.4 MG ORAL DAILY, CAP 03/02/19 Ipratropium/Albuterol Sulfate (DuoNeb 0.5-3(2.5)mg/3ml) 3 Ml Ampul.neb, 3 ML HHN , EA 03/02/19 Na Phos,M-B/Na Phos,Di-Ba* (FLEET ENEMA*) 133 Ml Enema, 133 ML RECTAL DAILY, ML 0 Refills 03/02/19 Bisacodyl* (DULCOLAX*) 5 Mg Tablet.dr, 10 MG ORAL ONCE, #4 TAB 0 Refills 03/02/19 Magnesium Hydroxide* (MILK OF MAGNESIA*) 400 Mg/5 Ml Oral.susp, 30 ML ORAL PRN, ML 03/02/19 Acetaminophen* (ACETAMINOPHEN 325MG TABLET*) 325 Mg Tablet, 325 MG ORAL Q6H PRN for Pain Scale (3-5), TAB 03/02/19 Ondansetron* (ZOFRAN*) 4 Mg/2 Ml Vial, 4 MG IV Q8H PRN for Nausea & Vomiting, VIAL 03/02/19 Hydralazine Hcl* (HYDRALAZINE HCL*) 50 Mg Tablet, 50 MG ORAL EVERY 8 HOURS, TAB 03/02/19 Pregabalin* (LYRICA*) 75 Mg Capsule, 50 MG ORAL THREE TIMES A DAY, CAP 03/02/19 Docusate Sodium* (DOCUSATE SODIUM*) 100 Mg Capsule, 100 MG ORAL TWICE A DAY, CAP 03/02/19 Loratadine (CLARITIN) 10 Mg Capsule, 10 MG ORAL DAILY, CAP 03/02/19 Med list reviewed/reconciled: Yes Allergies: Coded Allergies: No Known Allergies (Unverified , 03/02/19) Patient History History Provided By: Patient, Medical Record PMH Narrative Past Medical History: see triage record, old chart reviewed, HTN, COPD Past Surgical History: other Pertinent Family History: none Social History: Denies: smoking Immunizations: other Reviewed Nursing Documentation: PMH: Agreed; PSxH: Agreed Nursing Documentation-PMH Hx Hypertension: Yes Hx COPD: Yes - emphysema Social History: Reports: drug use Review of Systems All Other Systems: negative except mentioned in HPI Physical Exam Vital Signs Date Time Temp Pulse Resp B/P (MAP) Pulse Ox O2 Delivery O2 Flow Rate FiO2 03/02/19 04:04 104.0 138 16 140/90 (107) 94 03/02/19 04:16 Nasal Cannula 2.0 Sp02 EP Interpretation: reviewed, normal Labs Laboratory Tests Test 03/04/19 16:50 03/05/19 01:41 03/05/19 07:23 White Blood Count Pending 12.7 K/UL (4.8-10.8) H Lymphocytes Pending Percent CD3 Cells Pending Absolute CD3 Count Pending Percent CD4 Cells Pending Absolute CD4 Count Pending T-Lymphocyte CD4/CD8 Ratio Pending Percent CD8 Cells Pending Absolute CD8 Count Pending HIV-1 RNA (PCR) log10 Value Pending HIV-1 RNA Ultraquantitative (PCR) Pending Urine Osmolality 422 mOsm/kg (429-449) L Urine Random Sodium < 20 mmol/L (20-110) L Urine Opiates Screen Positive (NEGATIVE) H Urine Barbiturates Screen Negative (NEGATIVE) Phencyclidine (PCP) Screen Negative (NEGATIVE) Urine Amphetamines Screen Negative (NEGATIVE) Urine Benzodiazepines Screen Negative (NEGATIVE) Urine Cocaine Screen Negative (NEGATIVE) Urine Marijuana (THC) Screen Negative (NEGATIVE) Red Blood Count 2.88 M/UL (4.70-6.10) L Hemoglobin 8.1 G/DL (14.2-18.0) L Hematocrit 23.4 % (42.0-52.0) L Mean Corpuscular Volume 81 FL (80-99) Mean Corpuscular Hemoglobin 28.2 PG (27.0-31.0) Mean Corpuscular Hemoglobin Concent 34.7 G/DL (32.0-36.0) Red Cell Distribution Width 14.0 % (11.6-14.8) Platelet Count 215 K/UL (150-450) Mean Platelet Volume 6.6 FL (6.5-10.1) Neutrophils (%) (Auto) 61.9 % (45.0-75.0) Lymphocytes (%) (Auto) 19.5 % (20.0-45.0) L Monocytes (%) (Auto) 12.6 % (1.0-10.0) H Eosinophils (%) (Auto) 5.1 % (0.0-3.0) H Basophils (%) (Auto) 1.0 % (0.0-2.0) Sodium Level 133 MMOL/L (136-145) #L Potassium Level 4.0 MMOL/L (3.5-5.1) Chloride Level 104 MMOL/L (98-107) Carbon Dioxide Level 24 MMOL/L (21-32) Anion Gap 6 mmol/L (5-15) Blood Urea Nitrogen 13 mg/dL (7-18) Creatinine 0.7 MG/DL (0.55-1.30) Estimat Glomerular Filtration Rate > 60 mL/min (>60) Glucose Level 91 MG/DL (74-106) Uric Acid 7.8 MG/DL (2.6-7.2) H Calcium Level 7.8 MG/DL (8.5-10.1) L Phosphorus Level 2.1 MG/DL (2.5-4.9) L Magnesium Level 1.6 MG/DL (1.8-2.4) L Total Bilirubin 0.4 MG/DL (0.2-1.0) Aspartate Amino Transf (AST/SGOT) 25 U/L (15-37) Alanine Aminotransferase (ALT/SGPT) 8 U/L (12-78) L Alkaline Phosphatase 69 U/L (46-116) Total Protein 6.2 G/DL (6.4-8.2) L Albumin 1.6 G/DL (3.4-5.0) L Globulin 4.6 g/dL Albumin/Globulin Ratio 0.3 (1.0-2.7) L Rapid Plasma Reagin Pending General Appearance: well appearing, no apparent distress, alert Head: normocephalic EENT: PERRL/EOMI, normal ENT inspection Neck: supple Respiratory: normal breath sounds, no respiratory distress Cardiovascular: normal rate Gastrointestinal: normal inspection, non tender, soft, normal bowel sounds, non -distended Rectal: deferred Genitourinary: deferred Musculoskeletal: normal inspection, back normal Neurologic: normal inspection, alert, oriented x3, responsive Psychiatric: normal inspection, judgement/insight normal, memory normal Skin: normal inspection, normal color, no rash, warm/dry, palpation normal, well hydrated Lymphatic: normal inspection, no adenopathy Current Medications Current Medications Medications (Trade) Dose Ordered Sig/Deborah Route PRN Reason Start Time Stop Time Status Last Admin Dose Admin Acetaminophen (Tylenol) 650 mg Q4H PRN ORAL Mild Pain/Temp > 100.5 03/02/19 08:15 04/01/19 08:14 03/02/19 23:47 Acetaminophen/ Hydrocodone Bitart ([place] 5/325) 1 tab Q4H PRN ORAL Moderate Pain (Pain Scale 4-6) 03/02/19 08:15 03/09/19 08:14 Cefepime HCl 1 gm/ Dextrose 55 ml @ 110 mls/hr EVERY 12 HOURS IVPB 03/02/19 09:00 03/09/19 08:59 03/05/19 09:53 Magnesium Sulfate 100 ml @ 100 mls/hr Q1H IVPB 03/05/19 13:00 03/05/19 14:59 Metronidazole 100 ml @ 100 mls/hr Q8HR IVPB 03/02/19 14:00 03/09/19 13:59 03/05/19 05:18 Morphine Sulfate (Morphine Sulfate) 2 mg Q4H PRN IVP Severe Pain (Pain Scale 7-10) 03/02/19 08:15 03/09/19 08:14 03/05/19 10:00 Ondansetron HCl (Zofran) 4 mg Q4H PRN IVP Nausea & Vomiting 03/02/19 08:15 04/01/19 08:14 Pantoprazole (Protonix) 40 mg EVERY 12 HOURS ORAL 03/04/19 21:00 04/03/19 20:59 03/05/19 09:53 Sodium Phosphate 30 mm/Sodium Chloride 285 ml @ 47.5 mls/hr ONCE ONCE IV 03/05/19 14:00 03/05/19 19:59 Tamsulosin HCl (Flomax) 0.4 mg BID ORAL 03/04/19 18:00 04/02/19 08:59 03/05/19 09:54 GI: Plan Problems: (1) Nausea vomiting and diarrhea (2) Colitis Plan This is a 63-year-old male patient who presents to the emergency room with abdominal pain and complaint of diarrhea secondary to suspected colitis seen on CT scan. C. difficile negative Recommend for colonoscopy to evaluate the patient's colitis, however patient has refused. Advance diet as tolerated Continue prophylactic antibiotics PPI IV and p.o. hydration plus electrolyte correction Zofran as needed Pain management Outpatient colonoscopy Discussed with Dr. Interiano. Thank you for this patient referral, we will follow. The patient was seen and examined at bedside and all new and available data was reviewed in the patients chart. I agree with the above findings, impression and plan. (Patient seen earlier today. Signature stamp does not reflect patient encounter time.). - MD Lilibeth RamirezTempe St[facility] Luke[facility] HospitalPratik [facility] Mar 05, 2019 13:15
--- NOTE | 2019-03-05 13:56 | NUR ---
CASE MANAGEMENT:REVIEW 03/05/19 SI: SEPSIS. COPD. PNA 96.8 82 20 117/66 94% ON 2L/NC WBC+12.7 H/H-8.1/23.4 CA-7.8 PHOS-2.1 MAG-1.6 IS: IV K PHOS X1 IV MAG SULFATE Q1HRS X2 IV FLAGYL Q8HRS IV CEFEPIME Q12 IV MORPHINE Q4HRS PRN : TELEMETRY STATUS PLAN: DOWNGRADE TO MED/SURG Addendum: 03/05/19 at 1403 by RENO HOPEN DCP: FROM [facility]
[2019-03-05] MEDS ORDERED: Sodium Phosphate 30 MM in NS 275 ML IV ONE (14:00)
--- NOTE | 2019-03-05 15:06 | NUR ---
NURSE NOTES: pt completely refused the 2 bags Magnesium,.he states that it hurts too much and he is ok without it. I educated pt on the effects of having low mg such as heart arrhythmias, N/V and weakness, however pt still is refusing to received dose stating " I had some already don't feel anything don't want it" Pt is getting upset as I was trying to explained other options, "what don't you understand I DON'T WANT IT".
--- NOTE | 2019-03-05 15:18 | Nephrology Progress Note ---
Assessment/Plan Problem List: (1) Hyponatremia (2) HIV disease (3) Colitis (4) Sepsis (5) BPH (benign prostatic hyperplasia) Assessment HypoNatremia: Etiology? depletional Other Dx: sepsis ( leukocytosis, fever, lactic acidosis, evidence of infection) colitis elevated troponin r/o ACS vs demand ischemia tachycardia dehydration + HIV asymptomatic bacteriuria /? UTI with MRSA- hx of HTN COPD BPH sacral decub st 3 POA anemia severe hypo Mg , likely due to diarrhea Plan While waiting for more Data: 3% Saline IV K supplement Protonix monitor lytes per orders Subjective ROS Limited/Unobtainable: No Constitutional: Reports: malaise Objective Objective Last 24 Hour Vital Signs Date Time Temp Pulse Resp B/P (MAP) Pulse Ox O2 Delivery O2 Flow Rate FiO2 03/05/19 09:00 96.8 82 20 117/66 (83) 94 03/05/19 04:00 98.6 89 20 129/73 (91) 99 03/05/19 04:00 83 03/05/19 00:00 88 03/05/19 00:00 98.4 89 18 107/65 (79) 100 03/04/19 21:00 Nasal Cannula 2.0 03/04/19 20:00 98.6 89 18 109/68 (82) 98 03/04/19 20:00 87 03/04/19 16:00 92 03/04/19 16:00 98.3 75 18 104/62 (76) 98 03/04/19 15:53 98.3 Intake and Output 03/04/19 03/05/19 18:59 06:59 Intake Total 660 ml Output Total 560 ml Balance 100 ml Intake Oral 660 ml Output Urine Total 560 ml # Voids 4 # Bowel Movements 1 1 Laboratory Tests 03/04/19 16:50: White Blood Count [Pending], Lymphocytes [Pending], Percent CD3 Cells [Pending] , Absolute CD3 Count [Pending], Percent CD4 Cells [Pending], Absolute CD4 Count [Pending], T-Lymphocyte CD4/CD8 Ratio [Pending], Percent CD8 Cells [Pending], Absolute CD8 Count [Pending], HIV-1 RNA (PCR) log10 Value [Pending], HIV-1 RNA Ultraquantitative (PCR) [Pending] 03/05/19 01:41: Urine Osmolality 422L, Urine Random Sodium < 20L, Urine Opiates Screen PositiveH , Urine Barbiturates Screen Negative, Phencyclidine (PCP) Screen Negative, Urine Amphetamines Screen Negative, Urine Benzodiazepines Screen Negative, Urine Cocaine Screen Negative, Urine Marijuana (THC) Screen Negative 03/05/19 07:23: White Blood Count 12.7H, Red Blood Count 2.88L, Hemoglobin 8.1L, Hematocrit 23.4L, Mean Corpuscular Volume 81, Mean Corpuscular Hemoglobin 28.2, Mean Corpuscular Hemoglobin Concent 34.7, Red Cell Distribution Width 14.0, Platelet Count 215, Mean Platelet Volume 6.6, Neutrophils (%) (Auto) 61.9, Lymphocytes (% ) (Auto) 19.5L, Monocytes (%) (Auto) 12.6H, Eosinophils (%) (Auto) 5.1H, Basophils (%) (Auto) 1.0, Sodium Level 133#L, Potassium Level 4.0, Chloride Level 104, Carbon Dioxide Level 24, Anion Gap 6, Blood Urea Nitrogen 13, Creatinine 0.7, Estimat Glomerular Filtration Rate > 60, Glucose Level 91, Uric Acid 7.8H, Calcium Level 7.8L, Phosphorus Level 2.1L, Magnesium Level 1.6L, Total Bilirubin 0.4, Aspartate Amino Transf (AST/SGOT) 25, Alanine Aminotransferase (ALT/SGPT) 8L, Alkaline Phosphatase 69, Total Protein 6.2L, Albumin 1.6L, Globulin 4.6, Albumin/Globulin Ratio 0.3L, Rapid Plasma Reagin [ Pending] Height (Feet): 6 Height (Inches): 1.00 Weight (Pounds): 200 General Appearance: no apparent distress Objective no change Zander Razo MD Mar 05, 2019 15:18
--- NOTE | 2019-03-05 15:51 | NUR ---
NURSE NOTES: asked pt once again if I can assess his wounds he said know he already know he has wounds and he does not need to be told over and over again. I don't want to be moved or touch "I'll tell you if i decided I want to me move.
[2019-03-05 16:00] VITALS: BP 111/67
[2019-03-05] MEDS ORDERED: NaCl 3% 500ml 500 ML IV ONE (16:00)
--- NOTE | 2019-03-05 17:34 | NUR ---
NURSE NOTES: pt refuses to get turned or move in bed once again. TERRAZZO GRINDER has asked him and he also has refused.
--- NOTE | 2019-03-05 18:42 | NUR ---
NURSE NOTES: Notified doctor Danni pt is refusing Magnesium.
--- NOTE | 2019-03-05 18:42 | NUR ---
NURSE NOTES: notiv
--- NOTE | 2019-03-05 18:42 | Internal Med Progress Note ---
Subjective Date of Service: Mar 05, 2019 Physician Name Amauri Mera Attending Physician Oscar Martel MD Current Medications Medications (Trade) Dose Ordered Sig/Deborah Route PRN Reason Start Time Stop Time Status Last Admin Dose Admin Acetaminophen (Tylenol) 650 mg Q4H PRN ORAL Mild Pain/Temp > 100.5 03/02/19 08:15 04/01/19 08:14 03/02/19 23:47 Acetaminophen/ Hydrocodone Bitart ([place] 5/325) 1 tab Q4H PRN ORAL Moderate Pain (Pain Scale 4-6) 03/02/19 08:15 03/09/19 08:14 Cefepime HCl 1 gm/ Dextrose 55 ml @ 110 mls/hr EVERY 12 HOURS IVPB 03/02/19 09:00 03/09/19 08:59 03/05/19 09:53 Metronidazole 100 ml @ 100 mls/hr Q8HR IVPB 03/02/19 14:00 03/09/19 13:59 03/05/19 15:35 Morphine Sulfate (Morphine Sulfate) 2 mg Q4H PRN IVP Severe Pain (Pain Scale 7-10) 03/02/19 08:15 03/09/19 08:14 03/05/19 10:00 Ondansetron HCl (Zofran) 4 mg Q4H PRN IVP Nausea & Vomiting 03/02/19 08:15 04/01/19 08:14 Pantoprazole (Protonix) 40 mg EVERY 12 HOURS ORAL 03/04/19 21:00 04/03/19 20:59 03/05/19 09:53 Sodium Chloride 500 ml @ 30 mls/hr ONCE ONCE IV 03/05/19 16:00 03/06/19 08:39 03/05/19 17:05 Sodium Phosphate 30 mm/Sodium Chloride 285 ml @ 47.5 mls/hr ONCE ONCE IV 03/05/19 14:00 03/05/19 19:59 03/05/19 15:04 Tamsulosin HCl (Flomax) 0.4 mg BID ORAL 03/04/19 18:00 04/02/19 08:59 03/05/19 17:09 Allergies: Coded Allergies: No Known Allergies (Unverified , 03/02/19) ROS Limited/Unobtainable: No Constitutional: Reports: no symptoms HEENT: Reports: no symptoms Cardiovascular: Reports: no symptoms Respiratory: Reports: no symptoms Gastrointestinal/Abdominal: Reports: no symptoms Genitourinary: Reports: no symptoms Neurologic/Psychiatric: Reports: no symptoms Subjective 63 YO M admitted with abdominal pain, nausea and vomiting. Now Colitis and elevated troponin. HIV preliminary positive. Cover for Int Crow-Dr Martel Objective Last Vital Signs Date Time Temp Pulse Resp B/P (MAP) Pulse Ox O2 Delivery O2 Flow Rate FiO2 03/05/19 09:00 96.8 82 20 117/66 (83) 94 03/04/19 21:00 Nasal Cannula 2.0 Laboratory Tests Test 03/05/19 01:41 03/05/19 07:23 Urine Osmolality 422 mOsm/kg (429-449) L Urine Random Sodium < 20 mmol/L (20-110) L Urine Opiates Screen Positive (NEGATIVE) H Urine Barbiturates Screen Negative (NEGATIVE) Phencyclidine (PCP) Screen Negative (NEGATIVE) Urine Amphetamines Screen Negative (NEGATIVE) Urine Benzodiazepines Screen Negative (NEGATIVE) Urine Cocaine Screen Negative (NEGATIVE) Urine Marijuana (THC) Screen Negative (NEGATIVE) White Blood Count 12.7 K/UL (4.8-10.8) H Red Blood Count 2.88 M/UL (4.70-6.10) L Hemoglobin 8.1 G/DL (14.2-18.0) L Hematocrit 23.4 % (42.0-52.0) L Mean Corpuscular Volume 81 FL (80-99) Mean Corpuscular Hemoglobin 28.2 PG (27.0-31.0) Mean Corpuscular Hemoglobin Concent 34.7 G/DL (32.0-36.0) Red Cell Distribution Width 14.0 % (11.6-14.8) Platelet Count 215 K/UL (150-450) Mean Platelet Volume 6.6 FL (6.5-10.1) Neutrophils (%) (Auto) 61.9 % (45.0-75.0) Lymphocytes (%) (Auto) 19.5 % (20.0-45.0) L Monocytes (%) (Auto) 12.6 % (1.0-10.0) H Eosinophils (%) (Auto) 5.1 % (0.0-3.0) H Basophils (%) (Auto) 1.0 % (0.0-2.0) Sodium Level 133 MMOL/L (136-145) #L Potassium Level 4.0 MMOL/L (3.5-5.1) Chloride Level 104 MMOL/L (98-107) Carbon Dioxide Level 24 MMOL/L (21-32) Anion Gap 6 mmol/L (5-15) Blood Urea Nitrogen 13 mg/dL (7-18) Creatinine 0.7 MG/DL (0.55-1.30) Estimat Glomerular Filtration Rate > 60 mL/min (>60) Glucose Level 91 MG/DL (74-106) Uric Acid 7.8 MG/DL (2.6-7.2) H Calcium Level 7.8 MG/DL (8.5-10.1) L Phosphorus Level 2.1 MG/DL (2.5-4.9) L Magnesium Level 1.6 MG/DL (1.8-2.4) L Total Bilirubin 0.4 MG/DL (0.2-1.0) Aspartate Amino Transf (AST/SGOT) 25 U/L (15-37) Alanine Aminotransferase (ALT/SGPT) 8 U/L (12-78) L Alkaline Phosphatase 69 U/L (46-116) Total Protein 6.2 G/DL (6.4-8.2) L Albumin 1.6 G/DL (3.4-5.0) L Globulin 4.6 g/dL Albumin/Globulin Ratio 0.3 (1.0-2.7) L Rapid Plasma Reagin Pending Microbiology Date/Time Source Procedure Growth Status 03/03/19 07:50 Stool Clostridium difficile Toxin Assay - Final Complete Intake and Output 03/04/19 03/05/19 18:59 06:59 Intake Total 660 ml Output Total 560 ml Balance 100 ml Intake Oral 660 ml Output Urine Total 560 ml # Voids 4 # Bowel Movements 1 1 Objective PHYSICAL EXAMINATION: GENERAL: The patient is awake, responsive, no acute distress, but chronically cachectic and malnutrition. HEAD AND NECK: Pupils are equal and reactive to light. Extraocular movements intact. NECK: Supple. No JVD. LUNGS: Good air entry. No wheezing or rales. Decreased in bases. HEART: S1 and S2. Distant heart sounds. No murmur or gallops. ABDOMEN: Soft, mildly distended. No rebound tenderness. Generalized tenderness. RECTAL: Refused and deferred. GENITOURINARY: Refused and deferred. PSYCHIATRIC: Mood and affect intact. Gait was not assessed due to the patient's status. SKIN: Full thickness stage III pressure ulcer in the sacrum was noted presented on admission. NEUROLOGIC: Cranial nerves II through XII grossly intact. The patient moving all extremities. Lower extremities weaker than upper extremity and tender to touch in the lower extremity. Assessment/Plan Assessment/Plan ASSESSMENT: 1. Mild elevation of troponin, possible acute myocardial infarction versus demand ischemia. 2. Severe dehydration with hypovolemia. 3. Anemia most likely secondary to the intra-abdominal infection. 4. Colitis. 5. BPH. 6. Hypertension presently hypotensive. 7. COPD. 8. Hyponatremia. 9. Pressure ulcer stage III sacrum present on admission. 10. Acute urinary tract infection. 11. HIV preliminary positive PLAN: 1. Admit the patient to monitor unit. We will follow up serial cardiac enzymes. Await cardiology consult=Dr Salas 2. Continue cefepime and Flagyl per ID. Await GI consult=Dr Interiano 3. Dr. Chavarria from Pulmonary Critical Care 4. Dr. Romero from General surgery. 5. Dr Ramírez= wound care of the sacral ulcer. 6. HIV prelim pos=ID consult=Dr Carroll. Await HIV viral load and T cell panel results Monitor laboratory as well as cultures. Code status Full code. DVT prophylaxis with heparin subcutaneous. Amauri Mera MD Mar 05, 2019 18:42
--- NOTE | 2019-03-05 19:56 | NUR ---
HAND-OFF: Report given to alysa pt in stable condition. Endorse to RN Pt is refusing to be touched or turned.
[2019-03-05 20:00] VITALS: BP 124/72
--- NOTE | 2019-03-05 20:00 | NUR ---
NURSE NOTES: Received pt from ANJEL Garzon. Pt awake, alert, and talkative. Bed in lowest position. Call light within reach. Will continue to monitor.
--- NOTE | 2019-03-05 20:31 | Cardiology Progress Note ---
Assessment/Plan Assessment/Plan Troponin level elevated Colitis COPD exacerbation Sepsis Hypertension Hyponatremia remote hs of cocain abuse lf fxn normal mg supplemented tele sinu wbc improved sig elelvted sedrate will consider mpi in futuer Objective Last 24 Hour Vital Signs Date Time Temp Pulse Resp B/P (MAP) Pulse Ox O2 Delivery O2 Flow Rate FiO2 03/05/19 16:00 98.3 87 20 111/67 (82) 94 03/05/19 16:00 85 03/05/19 12:00 84 03/05/19 12:00 98.2 84 19 112/66 (81) 94 03/05/19 09:00 96.8 82 20 117/66 (83) 94 03/05/19 09:00 Nasal Cannula 2.0 03/05/19 08:00 84 03/05/19 04:00 98.6 89 20 129/73 (91) 99 03/05/19 04:00 83 03/05/19 00:00 88 03/05/19 00:00 98.4 89 18 107/65 (79) 100 03/04/19 21:00 Nasal Cannula 2.0 Intake and Output 03/04/19 03/05/19 19:00 07:00 Intake Total 540 ml 120 ml Output Total 560 ml Balance -20 ml 120 ml Intake Oral 540 ml 120 ml Output Urine Total 560 ml # Voids 4 # Bowel Movements 1 1 Laboratory Tests Test 03/05/19 01:41 03/05/19 07:23 Urine Osmolality 422 mOsm/kg (429-449) L Urine Random Sodium < 20 mmol/L (20-110) L Urine Opiates Screen Positive (NEGATIVE) H Urine Barbiturates Screen Negative (NEGATIVE) Phencyclidine (PCP) Screen Negative (NEGATIVE) Urine Amphetamines Screen Negative (NEGATIVE) Urine Benzodiazepines Screen Negative (NEGATIVE) Urine Cocaine Screen Negative (NEGATIVE) Urine Marijuana (THC) Screen Negative (NEGATIVE) White Blood Count 12.7 K/UL (4.8-10.8) H Red Blood Count 2.88 M/UL (4.70-6.10) L Hemoglobin 8.1 G/DL (14.2-18.0) L Hematocrit 23.4 % (42.0-52.0) L Mean Corpuscular Volume 81 FL (80-99) Mean Corpuscular Hemoglobin 28.2 PG (27.0-31.0) Mean Corpuscular Hemoglobin Concent 34.7 G/DL (32.0-36.0) Red Cell Distribution Width 14.0 % (11.6-14.8) Platelet Count 215 K/UL (150-450) Mean Platelet Volume 6.6 FL (6.5-10.1) Neutrophils (%) (Auto) 61.9 % (45.0-75.0) Lymphocytes (%) (Auto) 19.5 % (20.0-45.0) L Monocytes (%) (Auto) 12.6 % (1.0-10.0) H Eosinophils (%) (Auto) 5.1 % (0.0-3.0) H Basophils (%) (Auto) 1.0 % (0.0-2.0) Sodium Level 133 MMOL/L (136-145) #L Potassium Level 4.0 MMOL/L (3.5-5.1) Chloride Level 104 MMOL/L (98-107) Carbon Dioxide Level 24 MMOL/L (21-32) Anion Gap 6 mmol/L (5-15) Blood Urea Nitrogen 13 mg/dL (7-18) Creatinine 0.7 MG/DL (0.55-1.30) Estimat Glomerular Filtration Rate > 60 mL/min (>60) Glucose Level 91 MG/DL (74-106) Uric Acid 7.8 MG/DL (2.6-7.2) H Calcium Level 7.8 MG/DL (8.5-10.1) L Phosphorus Level 2.1 MG/DL (2.5-4.9) L Magnesium Level 1.6 MG/DL (1.8-2.4) L Total Bilirubin 0.4 MG/DL (0.2-1.0) Aspartate Amino Transf (AST/SGOT) 25 U/L (15-37) Alanine Aminotransferase (ALT/SGPT) 8 U/L (12-78) L Alkaline Phosphatase 69 U/L (46-116) Total Protein 6.2 G/DL (6.4-8.2) L Albumin 1.6 G/DL (3.4-5.0) L Globulin 4.6 g/dL Albumin/Globulin Ratio 0.3 (1.0-2.7) L Rapid Plasma Reagin Pending Microbiology Date/Time Source Procedure Growth Status 03/03/19 07:50 Stool Clostridium difficile Toxin Assay - Final Complete Brad Salas MD Mar 05, 2019 20:31
[2019-03-06] VITALS (7 sets, daily range): BP systolic 110–148; BP diastolic 68–82
[2019-03-06] MEDS: Morphine Sulfate 2mg/ml Inj(IV/IM USE ONLY) IVP PRN ×4 (04:08→21:02)
--- NOTE | 2019-03-06 06:29 | NUR ---
HAND-OFF: Report given to 3east RN. pt stable.
--- NOTE | 2019-03-06 06:30 | NUR ---
NURSE NOTES: Received patient from ANJEL Raza from telemetry. Patient refusing wound photos to be taken at this time because of pain. VSS. Belongings checked and list signed.
[2019-03-06] MEDS ORDERED: HYDROcodone/Acetamin 5/325 tab ORAL PRN (07:00)
[2019-03-06 07:21] LABS: BASOPHILS % (AUTO) 1.2 % (0.0-2.0); EOSINOPHILS % (AUTO) 7.2 % (0.0-3.0); HEMATOCRIT 25.8 % (42.0-52.0); HEMOGLOBIN 8.6 G/DL (14.2-18.0); LYMPHOCYTES % (AUTO) 25.9 % (20.0-45.0); MEAN CORPUSCULAR VOLUME 83 FL (80-99); MONOCYTES % (AUTO) 14.5 % (1.0-10.0); NEUTROPHILS % (AUTO) 51.2 % (45.0-75.0); PLATELET COUNT 251 K/UL (150-450); RED BLOOD COUNT 3.13 M/UL (4.70-6.10); RED CELL DISTRIBUTION WIDTH 13.9 % (11.6-14.8)
--- NOTE | 2019-03-06 07:44 | NUR ---
NURSE NOTES: Patient wake, alert x4, on nasal cannula 2 Liter, no sing of distress and shortness of breath; no sing of chest pain; IV Right For-Arm 22G 3%NaCl running at 30cc; Right-Hand 22G TKO; according to PM nurse, patient refused for wound picture to be taken, will try to take the wound picture; side rails up x2, breaks engaged, bed at lowest position; call light within reach; will keep monitoring.
--- NOTE | 2019-03-06 07:46 | NUR ---
HAND-OFF: Report given to ANJEL Moon.
[2019-03-06 07:59] LABS: ALANINE AMINOTRANSFERASE 11 U/L (12-78); ALBUMIN 1.6 G/DL (3.4-5.0); ALBUMIN/GLOBULIN RATIO 0.4 (1.0-2.7); ALKALINE PHOSPHATASE 70 U/L (46-116); ANION GAP 10 mmol/L (5-15); ASPARTATE AMINO TRANSFERASE 20 U/L (15-37); BILIRUBIN,TOTAL 0.3 MG/DL (0.2-1.0); BLOOD UREA NITROGEN 9 mg/dL (7-18); CALCIUM 7.6 MG/DL (8.5-10.1); CARBON DIOXIDE 18 MMOL/L (21-32); CHLORIDE 108 MMOL/L (98-107); CREATININE 0.6 MG/DL (0.55-1.30); POTASSIUM 3.7 MMOL/L (3.5-5.1); SODIUM 136 MMOL/L (136-145)
--- NOTE | 2019-03-06 08:22 | NUR ---
P.T Note: late entry 03/06/19 P.T evaluation attempted however patient refused to participate. Pt become more agitated upon attempt for encouragement. RN notified/aware. Will reattempt.
[2019-03-06] MEDS: Tamsulosin 0.4mg cap ORAL SCH ×2 (08:25→17:13)
[2019-03-06] MEDS: Cefepime HCl 1 GM in D5W 55 ML IVPB SCH ×2 (08:26→21:01)
--- NOTE | 2019-03-06 09:52 | Surgery Progress Note ---
Surgery Progress Note Subjective Additional Comments tolerating soft diet had BM this AM but states now feeling nausea passing flatus abd distended labs improved Objective Last 24 Hour Vital Signs Date Time Temp Pulse Resp B/P (MAP) Pulse Ox O2 Delivery O2 Flow Rate FiO2 03/06/19 08:17 97.5 84 16 125/80 (95) 98 03/06/19 08:00 97.5 84 16 125/80 (95) 98 03/06/19 04:00 86 03/06/19 04:00 97.2 88 18 128/79 (95) 99 03/06/19 00:00 86 03/06/19 00:00 98.8 95 18 110/68 (82) 98 03/05/19 21:00 Nasal Cannula 2.0 03/05/19 20:00 98.3 90 18 124/72 (89) 95 03/05/19 20:00 87 03/05/19 16:00 98.3 87 20 111/67 (82) 94 03/05/19 16:00 85 03/05/19 12:00 84 03/05/19 12:00 98.2 84 19 112/66 (81) 94 I&O Intake and Output 03/05/19 03/06/19 19:00 07:00 Intake Total 120 ml Balance 120 ml Intake Oral 120 ml # Bowel Movements 3 Dressing: other Wound: other Drains: other Cardiovascular: RSR Respiratory: clear Abdomen: soft, distended, non-tender, present bowel sounds Extremities: no tenderness, no cyanosis, other Laboratory Tests Test 03/06/19 06:45 White Blood Count 11.0 K/UL (4.8-10.8) H Red Blood Count 3.13 M/UL (4.70-6.10) L Hemoglobin 8.6 G/DL (14.2-18.0) L Hematocrit 25.8 % (42.0-52.0) L Mean Corpuscular Volume 83 FL (80-99) Mean Corpuscular Hemoglobin 27.6 PG (27.0-31.0) Mean Corpuscular Hemoglobin Concent 33.4 G/DL (32.0-36.0) Red Cell Distribution Width 13.9 % (11.6-14.8) Platelet Count 251 K/UL (150-450) Mean Platelet Volume 7.6 FL (6.5-10.1) Neutrophils (%) (Auto) 51.2 % (45.0-75.0) Lymphocytes (%) (Auto) 25.9 % (20.0-45.0) Monocytes (%) (Auto) 14.5 % (1.0-10.0) H Eosinophils (%) (Auto) 7.2 % (0.0-3.0) H Basophils (%) (Auto) 1.2 % (0.0-2.0) Activated Partial Thromboplast Time 35 SEC (23-33) H Sodium Level 136 MMOL/L (136-145) Potassium Level 3.7 MMOL/L (3.5-5.1) Chloride Level 108 MMOL/L (98-107) H Carbon Dioxide Level 18 MMOL/L (21-32) L Anion Gap 10 mmol/L (5-15) Blood Urea Nitrogen 9 mg/dL (7-18) Creatinine 0.6 MG/DL (0.55-1.30) Estimat Glomerular Filtration Rate > 60 mL/min (>60) Glucose Level 96 MG/DL (74-106) Uric Acid 7.3 MG/DL (2.6-7.2) H Calcium Level 7.6 MG/DL (8.5-10.1) L Magnesium Level 1.3 MG/DL (1.8-2.4) L Total Bilirubin 0.3 MG/DL (0.2-1.0) Aspartate Amino Transf (AST/SGOT) 20 U/L (15-37) Alanine Aminotransferase (ALT/SGPT) 11 U/L (12-78) L Alkaline Phosphatase 70 U/L (46-116) Total Protein 6.0 G/DL (6.4-8.2) L Albumin 1.6 G/DL (3.4-5.0) L Globulin 4.4 g/dL Albumin/Globulin Ratio 0.4 (1.0-2.7) L Free Thyroxine 1.41 NG/DL (0.76-1.46) Free Triiodothyronine 0.7 pg/mL (2.3-4.2) L Plan Problems: (1) Decubitus skin ulcer Assessment & Plan: Pt presented on admission with multiple pressure injuries. Blood blisters to ezequiel R tibia and medial L tibia. Full Thickness stage 3 pressure injury Sacrum . Base of wound 60% biofilm,40% viable. Edges are macerated bordered by black and fluctuant base with additional wounds at R sacrum. No odor or exudate noted. Pt complained of pain at site when in supine. Rigidity noted to both lower extremities and pt heels are in continuously in contact. DTPI noted to medial R heel . Base of wound with purple with maroon borders and fluctuant at base (L)4cm x (W)4cm .Periwound R heel is boggy but blanchable. DTPI medial L heel . Base of wound is maroon with scattered purple areas and is fluctuant at base. Periwound L heel is boggy but blanchable. Tx.Plan: Cleanse Sacral wound with Saline. Apply Therahoney. Apply Moisture Barrier periwound. Cover with Optifoam drsg every 3 days and prn. Apply Cavilon Skin Barrier to blood blisters R and L tibia. Cover each wound with Optifoam drsg. Change every 7 days and prn. Apply Cavilon Skin Barrier to both heels. Cover each heel with Optifoam drsg. Change every 7 days and prn. APM/KRISTI Mattress overlay. Reposition at least every 2hours or as tolerated. Place pillow between lower ext to keep Heels apart. Off-load heels with pillow. (2) Colitis Assessment & Plan: Findings: Significant artifact limits evaluation. The lung bases notable for posterior basal atelectasis. Patchy groundglass opacities also noted nonspecific. Trace pericardial fluid demonstrated. No obvious hydronephrosis or stones identified. No obvious free fluid identified. Question of gallstones. Aortoiliac calcifications are present. There is thickening of the wall of the colon especially noted on the right side involving the ascending colon and cecum. Findings suspicious for colitis. Correlate clinically. There is thickening of the wall the urinary bladder. 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 Anasarca noted. IMPRESSION: Limited evaluation due to technical artifacts. Suspected colitis with the thickening of the wall the colon. Correlate clinically. Thickening of the wall the urinary bladder. Correlate for cystitis. -Seen by GI and recommended to have Colonoscopy but declined -today with abd distention and nausea -KUB ordered -Zofran prn will follow up with recs (3) Sepsis Assessment & Plan: febrile t max 104 - resolved leukocytosis - improving lactic acidosis - resolved exam improved CT with colitis likely etiology of sepsis cultures noted ABX as per ID will follow with exam and recs okay for diet (4) Nausea vomiting and diarrhea César Romero Mar 06, 2019 09:52
--- NOTE | 2019-03-06 10:54 | Nephrology Progress Note ---
Assessment/Plan Problem List: (1) Hyponatremia (2) HIV disease (3) Colitis (4) Sepsis (5) BPH (benign prostatic hyperplasia) Assessment HypoNatremia: Etiology? depletional Other Dx: sepsis ( leukocytosis, fever, lactic acidosis, evidence of infection) colitis elevated troponin r/o ACS vs demand ischemia tachycardia dehydration + HIV asymptomatic bacteriuria /? UTI with MRSA- hx of HTN COPD BPH sacral decub st 3 POA anemia severe hypo Mg , likely due to diarrhea Plan Mag IV 3% Saline as needed IV K supplement as needed Protonix monitor lytes per orders Subjective ROS Limited/Unobtainable: No Constitutional: Reports: malaise Objective Objective Last 24 Hour Vital Signs Date Time Temp Pulse Resp B/P (MAP) Pulse Ox O2 Delivery O2 Flow Rate FiO2 03/06/19 09:11 97.5 03/06/19 09:00 Nasal Cannula 2.0 03/06/19 08:17 97.5 84 16 125/80 (95) 98 03/06/19 08:00 97.5 84 16 125/80 (95) 98 03/06/19 04:00 86 03/06/19 04:00 97.2 88 18 128/79 (95) 99 03/06/19 00:00 86 03/06/19 00:00 98.8 95 18 110/68 (82) 98 03/05/19 21:00 Nasal Cannula 2.0 03/05/19 20:00 98.3 90 18 124/72 (89) 95 03/05/19 20:00 87 03/05/19 16:00 98.3 87 20 111/67 (82) 94 03/05/19 16:00 85 03/05/19 12:00 84 03/05/19 12:00 98.2 84 19 112/66 (81) 94 Intake and Output 03/05/19 03/06/19 19:00 07:00 Intake Total 120 ml Balance 120 ml Intake Oral 120 ml # Bowel Movements 3 Laboratory Tests 03/06/19 06:45: White Blood Count 11.0H, Red Blood Count 3.13L, Hemoglobin 8.6L, Hematocrit 25.8L, Mean Corpuscular Volume 83, Mean Corpuscular Hemoglobin 27.6, Mean Corpuscular Hemoglobin Concent 33.4, Red Cell Distribution Width 13.9, Platelet Count 251, Mean Platelet Volume 7.6, Neutrophils (%) (Auto) 51.2, Lymphocytes (% ) (Auto) 25.9, Monocytes (%) (Auto) 14.5H, Eosinophils (%) (Auto) 7.2H, Basophils (%) (Auto) 1.2, Activated Partial Thromboplast Time 35H, Sodium Level 136, Potassium Level 3.7, Chloride Level 108H, Carbon Dioxide Level 18L, Anion Gap 10, Blood Urea Nitrogen 9, Creatinine 0.6, Estimat Glomerular Filtration Rate > 60, Glucose Level 96, Uric Acid 7.3H, Calcium Level 7.6L, Magnesium Level 1.3L, Total Bilirubin 0.3, Aspartate Amino Transf (AST/SGOT) 20, Alanine Aminotransferase (ALT/SGPT) 11L, Alkaline Phosphatase 70, Total Protein 6.0L, Albumin 1.6L, Globulin 4.4, Albumin/Globulin Ratio 0.4L, Free Thyroxine 1.41, Free Triiodothyronine 0.7L Height (Feet): 6 Height (Inches): 1.00 Weight (Pounds): 200 General Appearance: no apparent distress Respiratory/Chest: decreased breath sounds Abdomen: soft Objective no change Zander Razo MD Mar 06, 2019 10:54
--- NOTE | 2019-03-06 11:28 | NUR ---
P.T Note: P.T evaluation reattempted however pt again, refused to participate in P.T evaluation.
--- NOTE | 2019-03-06 12:10 | Pulmonology Progress Note ---
Assessment/Plan Problems: (1) Sepsis (2) COPD (chronic obstructive pulmonary disease) (3) Nausea vomiting and diarrhea (4) HCAP (healthcare-associated pneumonia) (5) BPH (benign prostatic hyperplasia) (6) Hypertension (7) HIV disease (8) COPD exacerbation Assessment/Plan HIV result noted, CD4 counts are pending respiratory treatment on Cefepime and flagyl hemodynamically stable titrate fio2 to sat of 92% med/surg pt/ot Subjective ROS Limited/Unobtainable: No Constitutional: Reports: no symptoms HEENT: Repors: no symptoms Respiratory: Reports: no symptoms Cardiovascular: Reports: no symptoms Allergies: Coded Allergies: No Known Allergies (Unverified , 03/02/19) Objective Last 24 Hour Vital Signs Date Time Temp Pulse Resp B/P (MAP) Pulse Ox O2 Delivery O2 Flow Rate FiO2 03/06/19 09:11 97.5 03/06/19 09:00 Nasal Cannula 2.0 03/06/19 08:17 97.5 84 16 125/80 (95) 98 03/06/19 08:00 97.5 84 16 125/80 (95) 98 03/06/19 04:00 86 03/06/19 04:00 97.2 88 18 128/79 (95) 99 03/06/19 00:00 86 03/06/19 00:00 98.8 95 18 110/68 (82) 98 03/05/19 21:00 Nasal Cannula 2.0 03/05/19 20:00 98.3 90 18 124/72 (89) 95 03/05/19 20:00 87 03/05/19 16:00 98.3 87 20 111/67 (82) 94 03/05/19 16:00 85 Intake and Output 03/05/19 03/06/19 19:00 07:00 Intake Total 120 ml Balance 120 ml Intake Oral 120 ml # Bowel Movements 3 General Appearance: WD/WN HEENT: normocephalic, atraumatic Respiratory/Chest: chest wall non-tender, lungs clear Cardiovascular: normal peripheral pulses, normal rate Abdomen: normal bowel sounds, soft, non tender Genitourinary: normal external genitalia Extremities: no clubbing Skin: no rash 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 Lymphatic: no neck adenopathy Musculoskeletal: normal muscle bulk Laboratory Tests 03/06/19 06:45: White Blood Count 11.0H, Red Blood Count 3.13L, Hemoglobin 8.6L, Hematocrit 25.8L, Mean Corpuscular Volume 83, Mean Corpuscular Hemoglobin 27.6, Mean Corpuscular Hemoglobin Concent 33.4, Red Cell Distribution Width 13.9, Platelet Count 251, Mean Platelet Volume 7.6, Neutrophils (%) (Auto) 51.2, Lymphocytes (% ) (Auto) 25.9, Monocytes (%) (Auto) 14.5H, Eosinophils (%) (Auto) 7.2H, Basophils (%) (Auto) 1.2, Activated Partial Thromboplast Time 35H, Sodium Level 136, Potassium Level 3.7, Chloride Level 108H, Carbon Dioxide Level 18L, Anion Gap 10, Blood Urea Nitrogen 9, Creatinine 0.6, Estimat Glomerular Filtration Rate > 60, Glucose Level 96, Uric Acid 7.3H, Calcium Level 7.6L, Magnesium Level 1.3L, Total Bilirubin 0.3, Aspartate Amino Transf (AST/SGOT) 20, Alanine Aminotransferase (ALT/SGPT) 11L, Alkaline Phosphatase 70, Total Protein 6.0L, Albumin 1.6L, Globulin 4.4, Albumin/Globulin Ratio 0.4L, Free Thyroxine 1.41, Free Triiodothyronine 0.7L Current Medications Medications (Trade) Dose Ordered Sig/Deborah Route PRN Reason Start Time Stop Time Status Last Admin Dose Admin Acetaminophen (Tylenol) 650 mg Q4H PRN ORAL Mild Pain/Temp > 100.5 03/06/19 08:15 04/01/19 08:14 Acetaminophen/ Hydrocodone Bitart ([place] 5/325) 1 tab Q4H PRN ORAL Moderate Pain (Pain Scale 4-6) 03/06/19 07:00 03/09/19 06:59 Cefepime HCl 1 gm/ Dextrose 55 ml @ 110 mls/hr EVERY 12 HOURS IVPB 03/06/19 09:00 03/09/19 08:59 03/06/19 08:26 Magnesium Sulfate 100 ml @ 100 mls/hr Q1H IVPB 03/06/19 11:00 03/06/19 14:59 03/06/19 11:42 Metronidazole 100 ml @ 100 mls/hr Q8HR IVPB 03/06/19 14:00 03/09/19 13:59 Morphine Sulfate (Morphine Sulfate) 2 mg Q4H PRN IVP Severe Pain (Pain Scale 7-10) 03/06/19 08:15 03/09/19 08:14 03/06/19 08:41 Ondansetron HCl (Zofran) 4 mg Q4H PRN IVP Nausea & Vomiting 03/06/19 08:15 04/01/19 08:14 Pantoprazole (Protonix) 40 mg EVERY 12 HOURS ORAL 03/06/19 09:00 04/03/19 20:59 03/06/19 08:25 Tamsulosin HCl (Flomax) 0.4 mg BID ORAL 03/06/19 09:00 04/02/19 08:59 03/06/19 08:25 Rico Chavarria MD Mar 06, 2019 12:10
--- NOTE | 2019-03-06 12:42 | Infectious Diseases Prog Note ---
Assessment/Plan Assessment/Plan 63yo man admitted with abdominal pain. Fever, SP Leukocytosis, improving Lactic acidosis, improving diarrhea/colitis CT: Suspected colitis with the thickening of the wall the colon. Correlate clinically. Thickening of the wall the urinary bladder. Correlate for cystitis. C diff negative unlikely UTI UA negative UCx Staph, likely colonizer HIV Screen positive pending confirmatory test 1. COPD. 2. Hypertension. 3. BPH. 4. History of cocaine abuse in the past. 5. Bedbound. PLAN: continue cefepime and flagyl #5 add Bactrim DS BID #1 for cyclospora and isospora monitor CBC, temp f/u HIV confirmatory test f/u stool culture f/u bcx f/u stool o/p f/u RPR Entamoeba Thank you, Dr. Martel, for allowing me to participate in the care of this patient. I will follow the patient with you during this admission. Subjective Allergies: Coded Allergies: No Known Allergies (Unverified , 03/02/19) Subjective Afebrile. Still with abdominal pain and diarrhea. WBC better Eating Objective Vital Signs Last 24 Hour Vital Signs Date Time Temp Pulse Resp B/P (MAP) Pulse Ox O2 Delivery O2 Flow Rate FiO2 03/06/19 09:11 97.5 03/06/19 09:00 Nasal Cannula 2.0 03/06/19 08:17 97.5 84 16 125/80 (95) 98 03/06/19 08:00 97.5 84 16 125/80 (95) 98 03/06/19 04:00 86 03/06/19 04:00 97.2 88 18 128/79 (95) 99 03/06/19 00:00 86 03/06/19 00:00 98.8 95 18 110/68 (82) 98 03/05/19 21:00 Nasal Cannula 2.0 03/05/19 20:00 98.3 90 18 124/72 (89) 95 03/05/19 20:00 87 03/05/19 16:00 98.3 87 20 111/67 (82) 94 03/05/19 16:00 85 Height (Feet): 6 Height (Inches): 1.00 Weight (Pounds): 200 Objective HEENT: No pale conjunctivae. No icterus. NECK: No lymphadenopathy. CHEST: Coarse breathing sounds. HEART: S1 and S2. ABDOMEN: Mildly distended. The patient has lower abdominal pain. No rebound. EXTREMITIES: No cellulitis or cyanosis. SKIN: Stage III decubitus in the sacral area, not grossly infected. Laboratory Tests Test 03/06/19 06:45 White Blood Count 11.0 K/UL (4.8-10.8) H Red Blood Count 3.13 M/UL (4.70-6.10) L Hemoglobin 8.6 G/DL (14.2-18.0) L Hematocrit 25.8 % (42.0-52.0) L Mean Corpuscular Volume 83 FL (80-99) Mean Corpuscular Hemoglobin 27.6 PG (27.0-31.0) Mean Corpuscular Hemoglobin Concent 33.4 G/DL (32.0-36.0) Red Cell Distribution Width 13.9 % (11.6-14.8) Platelet Count 251 K/UL (150-450) Mean Platelet Volume 7.6 FL (6.5-10.1) Neutrophils (%) (Auto) 51.2 % (45.0-75.0) Lymphocytes (%) (Auto) 25.9 % (20.0-45.0) Monocytes (%) (Auto) 14.5 % (1.0-10.0) H Eosinophils (%) (Auto) 7.2 % (0.0-3.0) H Basophils (%) (Auto) 1.2 % (0.0-2.0) Activated Partial Thromboplast Time 35 SEC (23-33) H Sodium Level 136 MMOL/L (136-145) Potassium Level 3.7 MMOL/L (3.5-5.1) Chloride Level 108 MMOL/L (98-107) H Carbon Dioxide Level 18 MMOL/L (21-32) L Anion Gap 10 mmol/L (5-15) Blood Urea Nitrogen 9 mg/dL (7-18) Creatinine 0.6 MG/DL (0.55-1.30) Estimat Glomerular Filtration Rate > 60 mL/min (>60) Glucose Level 96 MG/DL (74-106) Uric Acid 7.3 MG/DL (2.6-7.2) H Calcium Level 7.6 MG/DL (8.5-10.1) L Magnesium Level 1.3 MG/DL (1.8-2.4) L Total Bilirubin 0.3 MG/DL (0.2-1.0) Aspartate Amino Transf (AST/SGOT) 20 U/L (15-37) Alanine Aminotransferase (ALT/SGPT) 11 U/L (12-78) L Alkaline Phosphatase 70 U/L (46-116) Total Protein 6.0 G/DL (6.4-8.2) L Albumin 1.6 G/DL (3.4-5.0) L Globulin 4.4 g/dL Albumin/Globulin Ratio 0.4 (1.0-2.7) L Free Thyroxine 1.41 NG/DL (0.76-1.46) Free Triiodothyronine 0.7 pg/mL (2.3-4.2) L Current Medications Medications (Trade) Dose Ordered Sig/Deborah Route PRN Reason Start Time Stop Time Status Last Admin Dose Admin Acetaminophen (Tylenol) 650 mg Q4H PRN ORAL Mild Pain/Temp > 100.5 03/06/19 08:15 04/01/19 08:14 Acetaminophen/ Hydrocodone Bitart ([place] 5/325) 1 tab Q4H PRN ORAL Moderate Pain (Pain Scale 4-6) 03/06/19 07:00 03/09/19 06:59 Cefepime HCl 1 gm/ Dextrose 55 ml @ 110 mls/hr EVERY 12 HOURS IVPB 03/06/19 09:00 03/09/19 08:59 03/06/19 08:26 Magnesium Sulfate 100 ml @ 100 mls/hr Q1H IVPB 03/06/19 11:00 03/06/19 14:59 03/06/19 11:42 Metronidazole 100 ml @ 100 mls/hr Q8HR IVPB 03/06/19 14:00 03/09/19 13:59 Morphine Sulfate (Morphine Sulfate) 2 mg Q4H PRN IVP Severe Pain (Pain Scale 7-10) 03/06/19 08:15 03/09/19 08:14 03/06/19 08:41 Ondansetron HCl (Zofran) 4 mg Q4H PRN IVP Nausea & Vomiting 03/06/19 08:15 04/01/19 08:14 Pantoprazole (Protonix) 40 mg EVERY 12 HOURS ORAL 03/06/19 09:00 04/03/19 20:59 03/06/19 08:25 Tamsulosin HCl (Flomax) 0.4 mg BID ORAL 03/06/19 09:00 04/02/19 08:59 03/06/19 08:25 Olegario Carroll MD Mar 06, 2019 12:42
--- NOTE | 2019-03-06 12:53 | NUR ---
RADIOLOGY DEPT., ABDOMEN X-RAY DONE.-P.DYE
--- NOTE | 2019-03-06 13:12 | GI Progress Note ---
Assessment/Plan Problems: (1) Diarrhea ICD Codes: R19.7 - Diarrhea, unspecified SNOMED: 80222025 (2) Colitis ICD Codes: K52.9 - Noninfective gastroenteritis and colitis, unspecified SNOMED: 95413041, 769892052 Status: unchanged Status Narrative Discussed with Dr. Interiano. Assessment/Plan This is a 63-year-old male patient who presents to the emergency room with abdominal pain and complaint of diarrhea secondary to suspected colitis seen on CT scan. C. difficile negative stool culture negative patient refused colonoscopy hold stool softeners and laxatives, will consider Imodium f/u KUB to evaluate abdominal distention Advance diet as tolerated abx per ID PPI IV and p.o. hydration plus electrolyte correction Zofran as needed Pain management Outpatient colonoscopy The patient was seen and examined at bedside and all new and available data was reviewed in the patients chart. I agree with the above findings, impression and plan. (Patient seen earlier today. Signature stamp does not reflect patient encounter time.). - Mansoor Interiano MD Subjective Subjective abdominal distention denies any abdominal pain having episodes of diarrhea c/o of hip pain Objective Last 24 Hour Vital Signs Date Time Temp Pulse Resp B/P (MAP) Pulse Ox O2 Delivery O2 Flow Rate FiO2 03/06/19 09:11 97.5 03/06/19 09:00 Nasal Cannula 2.0 03/06/19 08:17 97.5 84 16 125/80 (95) 98 03/06/19 08:00 97.5 84 16 125/80 (95) 98 03/06/19 04:00 86 03/06/19 04:00 97.2 88 18 128/79 (95) 99 03/06/19 00:00 86 03/06/19 00:00 98.8 95 18 110/68 (82) 98 03/05/19 21:00 Nasal Cannula 2.0 03/05/19 20:00 98.3 90 18 124/72 (89) 95 03/05/19 20:00 87 03/05/19 16:00 98.3 87 20 111/67 (82) 94 03/05/19 16:00 85 Intake and Output 03/05/19 03/06/19 19:00 07:00 Intake Total 120 ml Balance 120 ml Intake Oral 120 ml # Bowel Movements 3 Laboratory Tests Test 03/06/19 06:45 White Blood Count 11.0 K/UL (4.8-10.8) H Red Blood Count 3.13 M/UL (4.70-6.10) L Hemoglobin 8.6 G/DL (14.2-18.0) L Hematocrit 25.8 % (42.0-52.0) L Mean Corpuscular Volume 83 FL (80-99) Mean Corpuscular Hemoglobin 27.6 PG (27.0-31.0) Mean Corpuscular Hemoglobin Concent 33.4 G/DL (32.0-36.0) Red Cell Distribution Width 13.9 % (11.6-14.8) Platelet Count 251 K/UL (150-450) Mean Platelet Volume 7.6 FL (6.5-10.1) Neutrophils (%) (Auto) 51.2 % (45.0-75.0) Lymphocytes (%) (Auto) 25.9 % (20.0-45.0) Monocytes (%) (Auto) 14.5 % (1.0-10.0) H Eosinophils (%) (Auto) 7.2 % (0.0-3.0) H Basophils (%) (Auto) 1.2 % (0.0-2.0) Activated Partial Thromboplast Time 35 SEC (23-33) H Sodium Level 136 MMOL/L (136-145) Potassium Level 3.7 MMOL/L (3.5-5.1) Chloride Level 108 MMOL/L (98-107) H Carbon Dioxide Level 18 MMOL/L (21-32) L Anion Gap 10 mmol/L (5-15) Blood Urea Nitrogen 9 mg/dL (7-18) Creatinine 0.6 MG/DL (0.55-1.30) Estimat Glomerular Filtration Rate > 60 mL/min (>60) Glucose Level 96 MG/DL (74-106) Uric Acid 7.3 MG/DL (2.6-7.2) H Calcium Level 7.6 MG/DL (8.5-10.1) L Magnesium Level 1.3 MG/DL (1.8-2.4) L Total Bilirubin 0.3 MG/DL (0.2-1.0) Aspartate Amino Transf (AST/SGOT) 20 U/L (15-37) Alanine Aminotransferase (ALT/SGPT) 11 U/L (12-78) L Alkaline Phosphatase 70 U/L (46-116) Total Protein 6.0 G/DL (6.4-8.2) L Albumin 1.6 G/DL (3.4-5.0) L Globulin 4.4 g/dL Albumin/Globulin Ratio 0.4 (1.0-2.7) L Free Thyroxine 1.41 NG/DL (0.76-1.46) Free Triiodothyronine 0.7 pg/mL (2.3-4.2) L Height (Feet): 6 Height (Inches): 1.00 Weight (Pounds): 200 General Appearance: WD/WN, no apparent distress, alert Cardiovascular: normal rate Respiratory/Chest: normal breath sounds, no respiratory distress Abdominal Exam: normal bowel sounds, non tender, soft Extremities: non-tender Leonides Mcelroy NP Mar 06, 2019 13:12
--- NOTE | 2019-03-06 13:28 | Diagnostic Imaging Report ---
Indication: Abdominal pain Technique: Supine view of the abdomen Comparison: none Findings: Prominent gas-filled but not frankly dilated small bowel loops are seen diffusely. No masses are demonstrated. Some calcifications project in the left upper quadrant, of uncertain significance, probably too peripheral to be renal. There is severe abnormality of both hips, with evidence of extensive remodeling of both acetabula, obliteration of the joint space, and extensive remodeling of the lateral femoral heads. Impression: No definite acute process. Nonspecific bowel gas pattern Markedly abnormal bilateral hips as described. Could represent sequelae of process such as old bilateral avascular necrosis with resultant secondary degenerative change, lung other possibilities
--- NOTE | 2019-03-06 14:08 | NUR ---
NURSE NOTES: ID contacted for discharge clearance. Per physician, patient not ready for discharge. Physician reports patient will be ready for discharge once diarrhea resolves.
--- NOTE | 2019-03-06 15:00 | NUR ---
NURSE NOTES: Patient refused for wound care picture taken; will keep trying.
[2019-03-06] MEDS ORDERED: NaCl 3% 500ml 500 ML IV ONE (16:00)
--- NOTE | 2019-03-06 16:26 | Internal Med Progress Note ---
Subjective Date of Service: Mar 06, 2019 Physician Name Amauri Mera Attending Physician Oscar Martel MD Current Medications Medications (Trade) Dose Ordered Sig/Deborah Route PRN Reason Start Time Stop Time Status Last Admin Dose Admin Acetaminophen (Tylenol) 650 mg Q4H PRN ORAL Mild Pain/Temp > 100.5 03/06/19 08:15 04/01/19 08:14 Acetaminophen/ Hydrocodone Bitart ([place] 5/325) 1 tab Q4H PRN ORAL Moderate Pain (Pain Scale 4-6) 03/06/19 07:00 03/09/19 06:59 Cefepime HCl 1 gm/ Dextrose 55 ml @ 110 mls/hr EVERY 12 HOURS IVPB 03/06/19 09:00 03/09/19 08:59 03/06/19 08:26 Loperamide HCl (Imodium) 2 mg Q4H PRN ORAL Diarrhea 03/06/19 13:45 04/05/19 13:44 Metronidazole 100 ml @ 100 mls/hr Q8HR IVPB 03/06/19 14:00 03/09/19 13:59 Morphine Sulfate (Morphine Sulfate) 2 mg Q4H PRN IVP Severe Pain (Pain Scale 7-10) 03/06/19 08:15 03/09/19 08:14 03/06/19 15:48 Ondansetron HCl (Zofran) 4 mg Q4H PRN IVP Nausea & Vomiting 03/06/19 08:15 04/01/19 08:14 Pantoprazole (Protonix) 40 mg DAILY ORAL 03/07/19 09:00 04/03/19 20:59 Tamsulosin HCl (Flomax) 0.4 mg BID ORAL 03/06/19 09:00 04/02/19 08:59 03/06/19 08:25 Trimethoprim/ Sulfamethoxazole (Bactrim-DS) 1 tab Q12HR ORAL 03/06/19 21:00 03/13/19 20:59 Allergies: Coded Allergies: No Known Allergies (Unverified , 03/02/19) ROS Limited/Unobtainable: No Constitutional: Reports: no symptoms HEENT: Reports: no symptoms Cardiovascular: Reports: no symptoms Respiratory: Reports: no symptoms Gastrointestinal/Abdominal: Reports: no symptoms Genitourinary: Reports: no symptoms Neurologic/Psychiatric: Reports: no symptoms Subjective 63 YO M admitted with abdominal pain, nausea and vomiting. Now Colitis and elevated troponin. HIV preliminary positive. Cover for Int Crow-Dr Martel Objective Last Vital Signs Date Time Temp Pulse Resp B/P (MAP) Pulse Ox O2 Delivery O2 Flow Rate FiO2 03/06/19 12:00 96.7 90 16 118/79 (92) 98 03/06/19 09:00 Nasal Cannula 2.0 Laboratory Tests Test 03/06/19 06:45 White Blood Count 11.0 K/UL (4.8-10.8) H Red Blood Count 3.13 M/UL (4.70-6.10) L Hemoglobin 8.6 G/DL (14.2-18.0) L Hematocrit 25.8 % (42.0-52.0) L Mean Corpuscular Volume 83 FL (80-99) Mean Corpuscular Hemoglobin 27.6 PG (27.0-31.0) Mean Corpuscular Hemoglobin Concent 33.4 G/DL (32.0-36.0) Red Cell Distribution Width 13.9 % (11.6-14.8) Platelet Count 251 K/UL (150-450) Mean Platelet Volume 7.6 FL (6.5-10.1) Neutrophils (%) (Auto) 51.2 % (45.0-75.0) Lymphocytes (%) (Auto) 25.9 % (20.0-45.0) Monocytes (%) (Auto) 14.5 % (1.0-10.0) H Eosinophils (%) (Auto) 7.2 % (0.0-3.0) H Basophils (%) (Auto) 1.2 % (0.0-2.0) Activated Partial Thromboplast Time 35 SEC (23-33) H Sodium Level 136 MMOL/L (136-145) Potassium Level 3.7 MMOL/L (3.5-5.1) Chloride Level 108 MMOL/L (98-107) H Carbon Dioxide Level 18 MMOL/L (21-32) L Anion Gap 10 mmol/L (5-15) Blood Urea Nitrogen 9 mg/dL (7-18) Creatinine 0.6 MG/DL (0.55-1.30) Estimat Glomerular Filtration Rate > 60 mL/min (>60) Glucose Level 96 MG/DL (74-106) Uric Acid 7.3 MG/DL (2.6-7.2) H Calcium Level 7.6 MG/DL (8.5-10.1) L Magnesium Level 1.3 MG/DL (1.8-2.4) L Total Bilirubin 0.3 MG/DL (0.2-1.0) Aspartate Amino Transf (AST/SGOT) 20 U/L (15-37) Alanine Aminotransferase (ALT/SGPT) 11 U/L (12-78) L Alkaline Phosphatase 70 U/L (46-116) Total Protein 6.0 G/DL (6.4-8.2) L Albumin 1.6 G/DL (3.4-5.0) L Globulin 4.4 g/dL Albumin/Globulin Ratio 0.4 (1.0-2.7) L Free Thyroxine 1.41 NG/DL (0.76-1.46) Free Triiodothyronine 0.7 pg/mL (2.3-4.2) L Intake and Output 03/05/19 03/06/19 19:00 07:00 Intake Total 120 ml Balance 120 ml Intake Oral 120 ml # Bowel Movements 3 Objective PHYSICAL EXAMINATION: GENERAL: The patient is awake, responsive, no acute distress, but chronically cachectic and malnutrition. HEAD AND NECK: Pupils are equal and reactive to light. Extraocular movements intact. NECK: Supple. No JVD. LUNGS: Good air entry. No wheezing or rales. Decreased in bases. HEART: S1 and S2. Distant heart sounds. No murmur or gallops. ABDOMEN: Soft, mildly distended. No rebound tenderness. Generalized tenderness. RECTAL: Refused and deferred. GENITOURINARY: Refused and deferred. PSYCHIATRIC: Mood and affect intact. Gait was not assessed due to the patient's status. SKIN: Full thickness stage III pressure ulcer in the sacrum was noted presented on admission. NEUROLOGIC: Cranial nerves II through XII grossly intact. The patient moving all extremities. Lower extremities weaker than upper extremity and tender to touch in the lower extremity. Assessment/Plan Assessment/Plan ASSESSMENT: 1. Mild elevation of troponin, possible acute myocardial infarction versus demand ischemia. 2. Severe dehydration with hypovolemia. 3. Anemia most likely secondary to the intra-abdominal infection. 4. Colitis. 5. BPH. 6. Hypertension presently hypotensive. 7. COPD. 8. Hyponatremia. 9. Pressure ulcer stage III sacrum present on admission. 10. Acute urinary tract infection. 11. HIV preliminary positive PLAN: 1. Admit the patient to monitor unit. We will follow up serial cardiac enzymes. Await cardiology consult=Dr Salas 2. Continue cefepime and Flagyl per ID. Await GI consult=Dr Interiano 3. Dr. Chavarria from Pulmonary Critical Care 4. Dr. Romero from General surgery. 5. Dr Ramírez= wound care of the sacral ulcer. 6. HIV prelim pos=ID consult=Dr Carroll. Await HIV viral load and T cell panel result 7. Hyponatremia-See nephrology note=Dr Razo Monitor laboratory as well as cultures. Code status Full code. DVT prophylaxis with heparin subcutaneous. Amauri Mera MD Mar 06, 2019 16:26
--- NOTE | 2019-03-06 19:26 | NUR ---
HAND-OFF: Report given to ANJEL Bach.
--- NOTE | 2019-03-06 19:30 | NUR ---
NURSE NOTES: Received patient in no apparent distress. Patient denies pain at this time. IV site intact on the right hand with no redness or swelling. Call light within reach.
[2019-03-06] MEDS: Bactrim-DS 1 tab ORAL SCH (21:01)
[2019-03-07] VITALS: BP 141/76
[2019-03-07 04:00] VITALS: BP 139/79
--- NOTE | 2019-03-07 04:00 | NUR ---
NURSE NOTES: Wound dressing change done for all wounds.
--- NOTE | 2019-03-07 07:26 | NUR ---
HAND-OFF: Report given to ANJEL Plascencia.
--- NOTE | 2019-03-07 07:38 | NUR ---
NURSE NOTES: received report from ANJEL Martinez and ANJEL Ying. patient in bed. alert. verbally responsive. no respiratory distress noted. no c/o pain at this time. IV on RH 22 saline lock intact. contact isolation. PPE at all times.bed in the lowest position. call light within reach. will continue to provide plan of care.
[2019-03-07 08:00] VITALS: BP 137/78
[2019-03-07 08:09] LABS: BASOPHILS % (AUTO) 0.7 % (0.0-2.0); HEMATOCRIT 27.9 % (42.0-52.0); HEMOGLOBIN 9.2 G/DL (14.2-18.0); LYMPHOCYTES % (AUTO) 22.8 % (20.0-45.0); MEAN CORPUSCULAR VOLUME 83 FL (80-99); MONOCYTES % (AUTO) 11.7 % (1.0-10.0); NEUTROPHILS % (AUTO) 57.9 % (45.0-75.0); PLATELET COUNT 289 K/UL (150-450); RED BLOOD COUNT 3.36 M/UL (4.70-6.10); RED CELL DISTRIBUTION WIDTH 15.5 % (11.6-14.8); WHITE BLOOD COUNT 16.2 K/UL (4.8-10.8)
[2019-03-07 08:28] LABS: ALBUMIN 1.7 G/DL (3.4-5.0); ALBUMIN/GLOBULIN RATIO 0.4 (1.0-2.7); ALKALINE PHOSPHATASE 67 U/L (46-116); ANION GAP 6 mmol/L (5-15); ASPARTATE AMINO TRANSFERASE 21 U/L (15-37); BILIRUBIN,TOTAL 0.3 MG/DL (0.2-1.0); BLOOD UREA NITROGEN 6 mg/dL (7-18); CALCIUM 7.5 MG/DL (8.5-10.1); CARBON DIOXIDE 21 MMOL/L (21-32); CHLORIDE 106 MMOL/L (98-107); CREATININE 0.7 MG/DL (0.55-1.30); PHOSPHORUS 2.6 MG/DL (2.5-4.9); POTASSIUM 3.8 MMOL/L (3.5-5.1); SODIUM 133 MMOL/L (136-145)
[2019-03-07 08:38] LABS: ALANINE AMINOTRANSFERASE 10 U/L (12-78)
[2019-03-07] MEDS: Tamsulosin 0.4mg cap ORAL SCH ×2 (08:39→17:25)
[2019-03-07] MEDS: Bactrim-DS 1 tab ORAL SCH ×2 (08:39→20:20)
--- NOTE | 2019-03-07 09:07 | NUR ---
P.T Note: late entry 03/06/19 P.T evaluation reattempted however pt continue to refuse to participate despite multiple attempts. Will DC P.T due to non compliance.
[2019-03-07] MEDS: Cefepime HCl 1 GM in D5W 55 ML IVPB SCH ×2 (09:51→20:20)
--- NOTE | 2019-03-07 11:00 | Infectious Diseases Prog Note ---
Assessment/Plan Assessment/Plan 63yo man admitted with abdominal pain. Fever, SP Leukocytosis, fluctuating Lactic acidosis, improving diarrhea/colitis CT: Suspected colitis with the thickening of the wall the colon. Correlate clinically. Thickening of the wall the urinary bladder. Correlate for cystitis. C diff negative stool cx negative unlikely UTI UA negative UCx Staph, likely colonizer HIV Screen positive pending confirmatory test 1. COPD. 2. Hypertension. 3. BPH. 4. History of cocaine abuse in the past. 5. Bedbound. PLAN: continue cefepime and flagyl #6 Bactrim DS BID #2 for cyclospora and isospora monitor CBC, temp f/u HIV confirmatory test f/u bcx f/u stool o/p f/u RPR Entamoeba, Giardia Thank you, Dr. Martel, for allowing me to participate in the care of this patient. I will follow the patient with you during this admission. Subjective Allergies: Coded Allergies: No Known Allergies (Unverified , 03/02/19) Subjective Afebrile. Abdominal pain improving. Had more formed bowel movement this morning WBC worse Objective Vital Signs Last 24 Hour Vital Signs Date Time Temp Pulse Resp B/P (MAP) Pulse Ox O2 Delivery O2 Flow Rate FiO2 03/07/19 09:00 Nasal Cannula 2.0 03/07/19 08:00 98.5 93 18 137/78 (97) 95 03/07/19 04:00 98.6 102 18 139/79 (99) 94 03/07/19 00:00 98.3 81 17 141/76 (97) 97 03/06/19 21:00 Nasal Cannula 2.0 03/06/19 20:10 98.1 88 19 148/82 (104) 98 03/06/19 16:18 96.7 03/06/19 16:00 97.5 84 19 137/73 (94) 99 03/06/19 12:00 96.7 90 16 118/79 (92) 98 Height (Feet): 6 Height (Inches): 1.00 Weight (Pounds): 190 Objective HEENT: No pale conjunctivae. No icterus. NECK: No lymphadenopathy. CHEST: Coarse breathing sounds. HEART: S1 and S2. ABDOMEN: Mildly distended. The patient has lower abdominal pain. No rebound. EXTREMITIES: No cellulitis or cyanosis. SKIN: Stage III decubitus in the sacral area, not grossly infected. Laboratory Tests Test 03/07/19 07:35 White Blood Count 16.2 K/UL (4.8-10.8) H Red Blood Count 3.36 M/UL (4.70-6.10) L Hemoglobin 9.2 G/DL (14.2-18.0) L Hematocrit 27.9 % (42.0-52.0) L Mean Corpuscular Volume 83 FL (80-99) Mean Corpuscular Hemoglobin 27.3 PG (27.0-31.0) Mean Corpuscular Hemoglobin Concent 32.9 G/DL (32.0-36.0) Red Cell Distribution Width 15.5 % (11.6-14.8) H Platelet Count 289 K/UL (150-450) Mean Platelet Volume 6.5 FL (6.5-10.1) Neutrophils (%) (Auto) 57.9 % (45.0-75.0) Lymphocytes (%) (Auto) 22.8 % (20.0-45.0) Monocytes (%) (Auto) 11.7 % (1.0-10.0) H Eosinophils (%) (Auto) 7.0 % (0.0-3.0) H Basophils (%) (Auto) 0.7 % (0.0-2.0) Erythrocyte Sedimentation Rate 82 MM/HR (0-20) H Sodium Level 133 MMOL/L (136-145) L Potassium Level 3.8 MMOL/L (3.5-5.1) Chloride Level 106 MMOL/L (98-107) Carbon Dioxide Level 21 MMOL/L (21-32) Anion Gap 6 mmol/L (5-15) Blood Urea Nitrogen 6 mg/dL (7-18) L Creatinine 0.7 MG/DL (0.55-1.30) Estimat Glomerular Filtration Rate > 60 mL/min (>60) Glucose Level 101 MG/DL (74-106) Calcium Level 7.5 MG/DL (8.5-10.1) L Phosphorus Level 2.6 MG/DL (2.5-4.9) Magnesium Level 1.6 MG/DL (1.8-2.4) L Total Bilirubin 0.3 MG/DL (0.2-1.0) Aspartate Amino Transf (AST/SGOT) 21 U/L (15-37) Alanine Aminotransferase (ALT/SGPT) 10 U/L (12-78) L Alkaline Phosphatase 67 U/L (46-116) C-Reactive Protein, Quantitative 4.9 mg/dL (0.00-0.90) H Total Protein 6.4 G/DL (6.4-8.2) Albumin 1.7 G/DL (3.4-5.0) L Globulin 4.7 g/dL Albumin/Globulin Ratio 0.4 (1.0-2.7) L Current Medications Medications (Trade) Dose Ordered Sig/Deborah Route PRN Reason Start Time Stop Time Status Last Admin Dose Admin Acetaminophen (Tylenol) 650 mg Q4H PRN ORAL Mild Pain/Temp > 100.5 03/06/19 08:15 04/01/19 08:14 Acetaminophen/ Hydrocodone Bitart ([place] 5/325) 1 tab Q4H PRN ORAL Moderate Pain (Pain Scale 4-6) 03/06/19 07:00 03/09/19 06:59 Cefepime HCl 1 gm/ Dextrose 55 ml @ 110 mls/hr EVERY 12 HOURS IVPB 03/06/19 09:00 03/09/19 08:59 03/07/19 09:51 Loperamide HCl (Imodium) 2 mg Q4H PRN ORAL Diarrhea 03/06/19 13:45 04/05/19 13:44 Metronidazole 100 ml @ 100 mls/hr Q8HR IVPB 03/06/19 14:00 03/09/19 13:59 03/07/19 05:17 Morphine Sulfate (Morphine Sulfate) 2 mg Q4H PRN IVP Severe Pain (Pain Scale 7-10) 03/06/19 08:15 03/09/19 08:14 03/06/19 21:02 Ondansetron HCl (Zofran) 4 mg Q4H PRN IVP Nausea & Vomiting 03/06/19 08:15 04/01/19 08:14 Pantoprazole (Protonix) 40 mg DAILY ORAL 03/07/19 09:00 04/03/19 20:59 03/07/19 08:39 Tamsulosin HCl (Flomax) 0.4 mg BID ORAL 03/06/19 09:00 04/02/19 08:59 03/07/19 08:39 Trimethoprim/ Sulfamethoxazole (Bactrim-DS) 1 tab Q12HR ORAL 03/06/19 21:00 03/13/19 20:59 03/07/19 08:39 Olegario Carroll MD Mar 07, 2019 11:00
--- NOTE | 2019-03-07 11:11 | Internal Med Progress Note ---
Subjective Date of Service: Mar 07, 2019 Physician Name Amauri Mera Attending Physician Oscar Martel MD Current Medications Medications (Trade) Dose Ordered Sig/Deborah Route PRN Reason Start Time Stop Time Status Last Admin Dose Admin Acetaminophen (Tylenol) 650 mg Q4H PRN ORAL Mild Pain/Temp > 100.5 03/06/19 08:15 04/01/19 08:14 Acetaminophen/ Hydrocodone Bitart ([place] 5/325) 1 tab Q4H PRN ORAL Moderate Pain (Pain Scale 4-6) 03/06/19 07:00 03/09/19 06:59 Cefepime HCl 1 gm/ Dextrose 55 ml @ 110 mls/hr EVERY 12 HOURS IVPB 03/06/19 09:00 03/09/19 08:59 03/07/19 09:51 Loperamide HCl (Imodium) 2 mg Q4H PRN ORAL Diarrhea 03/06/19 13:45 04/05/19 13:44 Metronidazole 100 ml @ 100 mls/hr Q8HR IVPB 03/06/19 14:00 03/09/19 13:59 03/07/19 05:17 Morphine Sulfate (Morphine Sulfate) 2 mg Q4H PRN IVP Severe Pain (Pain Scale 7-10) 03/06/19 08:15 03/09/19 08:14 03/06/19 21:02 Ondansetron HCl (Zofran) 4 mg Q4H PRN IVP Nausea & Vomiting 03/06/19 08:15 04/01/19 08:14 Pantoprazole (Protonix) 40 mg DAILY ORAL 03/07/19 09:00 04/03/19 20:59 03/07/19 08:39 Tamsulosin HCl (Flomax) 0.4 mg BID ORAL 03/06/19 09:00 04/02/19 08:59 03/07/19 08:39 Trimethoprim/ Sulfamethoxazole (Bactrim-DS) 1 tab Q12HR ORAL 03/06/19 21:00 03/13/19 20:59 03/07/19 08:39 Allergies: Coded Allergies: No Known Allergies (Unverified , 03/02/19) ROS Limited/Unobtainable: No Constitutional: Reports: no symptoms HEENT: Reports: no symptoms Cardiovascular: Reports: no symptoms Respiratory: Reports: no symptoms Gastrointestinal/Abdominal: Reports: no symptoms Genitourinary: Reports: no symptoms Neurologic/Psychiatric: Reports: no symptoms Subjective 63 YO M admitted with abdominal pain, nausea and vomiting. Now Colitis and elevated troponin. HIV preliminary positive. Cover for Int Med-Dr Martel Objective Last Vital Signs Date Time Temp Pulse Resp B/P (MAP) Pulse Ox O2 Delivery O2 Flow Rate FiO2 03/07/19 09:00 Nasal Cannula 2.0 03/07/19 08:00 98.5 93 18 137/78 (97) 95 Laboratory Tests Test 03/07/19 07:35 White Blood Count 16.2 K/UL (4.8-10.8) H Red Blood Count 3.36 M/UL (4.70-6.10) L Hemoglobin 9.2 G/DL (14.2-18.0) L Hematocrit 27.9 % (42.0-52.0) L Mean Corpuscular Volume 83 FL (80-99) Mean Corpuscular Hemoglobin 27.3 PG (27.0-31.0) Mean Corpuscular Hemoglobin Concent 32.9 G/DL (32.0-36.0) Red Cell Distribution Width 15.5 % (11.6-14.8) H Platelet Count 289 K/UL (150-450) Mean Platelet Volume 6.5 FL (6.5-10.1) Neutrophils (%) (Auto) 57.9 % (45.0-75.0) Lymphocytes (%) (Auto) 22.8 % (20.0-45.0) Monocytes (%) (Auto) 11.7 % (1.0-10.0) H Eosinophils (%) (Auto) 7.0 % (0.0-3.0) H Basophils (%) (Auto) 0.7 % (0.0-2.0) Erythrocyte Sedimentation Rate 82 MM/HR (0-20) H Sodium Level 133 MMOL/L (136-145) L Potassium Level 3.8 MMOL/L (3.5-5.1) Chloride Level 106 MMOL/L (98-107) Carbon Dioxide Level 21 MMOL/L (21-32) Anion Gap 6 mmol/L (5-15) Blood Urea Nitrogen 6 mg/dL (7-18) L Creatinine 0.7 MG/DL (0.55-1.30) Estimat Glomerular Filtration Rate > 60 mL/min (>60) Glucose Level 101 MG/DL (74-106) Calcium Level 7.5 MG/DL (8.5-10.1) L Phosphorus Level 2.6 MG/DL (2.5-4.9) Magnesium Level 1.6 MG/DL (1.8-2.4) L Total Bilirubin 0.3 MG/DL (0.2-1.0) Aspartate Amino Transf (AST/SGOT) 21 U/L (15-37) Alanine Aminotransferase (ALT/SGPT) 10 U/L (12-78) L Alkaline Phosphatase 67 U/L (46-116) C-Reactive Protein, Quantitative 4.9 mg/dL (0.00-0.90) H Total Protein 6.4 G/DL (6.4-8.2) Albumin 1.7 G/DL (3.4-5.0) L Globulin 4.7 g/dL Albumin/Globulin Ratio 0.4 (1.0-2.7) L Intake and Output 03/06/19 03/07/19 19:00 07:00 Intake Total 750 ml 450 ml Output Total 600 ml Balance 750 ml -150 ml Intake Oral 540 ml 240 ml IV Total 210 ml 210 ml Output Urine Total 600 ml # Voids 2 # Bowel Movements 1 1 Objective PHYSICAL EXAMINATION: GENERAL: The patient is awake, responsive, no acute distress, but chronically cachectic and malnutrition. HEAD AND NECK: Pupils are equal and reactive to light. Extraocular movements intact. NECK: Supple. No JVD. LUNGS: Good air entry. No wheezing or rales. Decreased in bases. HEART: S1 and S2. Distant heart sounds. No murmur or gallops. ABDOMEN: Soft, mildly distended. No rebound tenderness. Generalized tenderness. RECTAL: Refused and deferred. GENITOURINARY: Refused and deferred. PSYCHIATRIC: Mood and affect intact. Gait was not assessed due to the patient's status. SKIN: Full thickness stage III pressure ulcer in the sacrum was noted presented on admission. NEUROLOGIC: Cranial nerves II through XII grossly intact. The patient moving all extremities. Lower extremities weaker than upper extremity and tender to touch in the lower extremity. Assessment/Plan Assessment/Plan ASSESSMENT: 1. Mild elevation of troponin, possible acute myocardial infarction versus demand ischemia. 2. Severe dehydration with hypovolemia. 3. Anemia most likely secondary to the intra-abdominal infection. 4. Colitis. 5. BPH. 6. Hypertension presently hypotensive. 7. COPD. 8. Hyponatremia. 9. Pressure ulcer stage III sacrum present on admission. 10. Acute urinary tract infection. 11. HIV preliminary positive PLAN: 1. Admit the patient to monitor unit. We will follow up serial cardiac enzymes. Await cardiology consult=Dr Salas 2. Continue cefepime and Flagyl per ID. Await GI consult=Dr Interiano 3. Dr. Chavarria from Pulmonary Critical Care 4. Dr. Romero from General surgery. 5. Dr Ramírez= wound care of the sacral ulcer. 6. HIV prelim pos=ID consult=Dr Carroll. Await HIV viral load and T cell panel result 7. Hyponatremia-See nephrology note=Dr Razo Monitor laboratory as well as cultures. Code status Full code. DVT prophylaxis with heparin subcutaneous. Amauri Mera MD Mar 07, 2019 11:11
--- NOTE | 2019-03-07 11:17 | Nephrology Progress Note ---
Assessment/Plan Problem List: (1) Hyponatremia (2) HIV disease (3) Colitis (4) Sepsis (5) BPH (benign prostatic hyperplasia) Assessment HypoNatremia: Etiology? depletional Other Dx: sepsis ( leukocytosis, fever, lactic acidosis, evidence of infection) colitis elevated troponin r/o ACS vs demand ischemia tachycardia dehydration + HIV asymptomatic bacteriuria /? UTI with MRSA- hx of HTN COPD BPH sacral decub st 3 POA anemia severe hypo Mg , likely due to diarrhea Plan Mag IV 3% Saline as needed IV K supplement as needed Protonix monitor lytes per orders Subjective ROS Limited/Unobtainable: No Constitutional: Reports: malaise Objective Objective Last 24 Hour Vital Signs Date Time Temp Pulse Resp B/P (MAP) Pulse Ox O2 Delivery O2 Flow Rate FiO2 03/07/19 09:00 Nasal Cannula 2.0 03/07/19 08:00 98.5 93 18 137/78 (97) 95 03/07/19 04:00 98.6 102 18 139/79 (99) 94 03/07/19 00:00 98.3 81 17 141/76 (97) 97 03/06/19 21:00 Nasal Cannula 2.0 03/06/19 20:10 98.1 88 19 148/82 (104) 98 03/06/19 16:18 96.7 03/06/19 16:00 97.5 84 19 137/73 (94) 99 03/06/19 12:00 96.7 90 16 118/79 (92) 98 Intake and Output 03/06/19 03/07/19 19:00 07:00 Intake Total 750 ml 450 ml Output Total 600 ml Balance 750 ml -150 ml Intake Oral 540 ml 240 ml IV Total 210 ml 210 ml Output Urine Total 600 ml # Voids 2 # Bowel Movements 1 1 Laboratory Tests 03/07/19 07:35: White Blood Count 16.2H, Red Blood Count 3.36L, Hemoglobin 9.2L, Hematocrit 27.9L, Mean Corpuscular Volume 83, Mean Corpuscular Hemoglobin 27.3, Mean Corpuscular Hemoglobin Concent 32.9, Red Cell Distribution Width 15.5H, Platelet Count 289, Mean Platelet Volume 6.5, Neutrophils (%) (Auto) 57.9, Lymphocytes (%) (Auto) 22.8, Monocytes (%) (Auto) 11.7H, Eosinophils (%) (Auto) 7.0H, Basophils (%) (Auto) 0.7, Erythrocyte Sedimentation Rate 82H, Sodium Level 133L, Potassium Level 3.8, Chloride Level 106, Carbon Dioxide Level 21, Anion Gap 6, Blood Urea Nitrogen 6L, Creatinine 0.7, Estimat Glomerular Filtration Rate > 60, Glucose Level 101, Calcium Level 7.5L, Phosphorus Level 2.6, Magnesium Level 1.6L, Total Bilirubin 0.3, Aspartate Amino Transf (AST/SGOT ) 21, Alanine Aminotransferase (ALT/SGPT) 10L, Alkaline Phosphatase 67, C- Reactive Protein, Quantitative 4.9H, Total Protein 6.4, Albumin 1.7L, Globulin 4.7, Albumin/Globulin Ratio 0.4L Height (Feet): 6 Height (Inches): 1.00 Weight (Pounds): 190 General Appearance: no apparent distress Objective no change Zander Razo MD Mar 07, 2019 11:17
--- NOTE | 2019-03-07 11:57 | Pulmonology Progress Note ---
Assessment/Plan Problems: (1) Sepsis (2) COPD (chronic obstructive pulmonary disease) (3) Nausea vomiting and diarrhea (4) HCAP (healthcare-associated pneumonia) (5) BPH (benign prostatic hyperplasia) (6) Hypertension (7) HIV disease (8) COPD exacerbation Assessment/Plan wbc rising? etiologyt HIV result noted, CD4 counts are pending respiratory treatment on Cefepime and flagyl hemodynamically stable titrate fio2 to sat of 92% med/surg pt/ot Subjective Interval Events: wbc rising, no new complaint Constitutional: Reports: no symptoms Allergies: Coded Allergies: No Known Allergies (Unverified , 03/02/19) Objective Last 24 Hour Vital Signs Date Time Temp Pulse Resp B/P (MAP) Pulse Ox O2 Delivery O2 Flow Rate FiO2 03/07/19 09:00 Nasal Cannula 2.0 03/07/19 08:00 98.5 93 18 137/78 (97) 95 03/07/19 04:00 98.6 102 18 139/79 (99) 94 03/07/19 00:00 98.3 81 17 141/76 (97) 97 03/06/19 21:00 Nasal Cannula 2.0 03/06/19 20:10 98.1 88 19 148/82 (104) 98 03/06/19 16:18 96.7 03/06/19 16:00 97.5 84 19 137/73 (94) 99 03/06/19 12:00 96.7 90 16 118/79 (92) 98 Intake and Output 03/06/19 03/07/19 19:00 07:00 Intake Total 750 ml 450 ml Output Total 600 ml Balance 750 ml -150 ml Intake Oral 540 ml 240 ml IV Total 210 ml 210 ml Output Urine Total 600 ml # Voids 2 # Bowel Movements 1 1 General Appearance: WD/WN Respiratory/Chest: chest wall non-tender, lungs clear Cardiovascular: normal peripheral pulses, normal rate Abdomen: normal bowel sounds, soft, non tender Genitourinary: normal external genitalia Extremities: no clubbing Skin: no rash Laboratory Tests 03/07/19 07:35: White Blood Count 16.2H, Red Blood Count 3.36L, Hemoglobin 9.2L, Hematocrit 27.9L, Mean Corpuscular Volume 83, Mean Corpuscular Hemoglobin 27.3, Mean Corpuscular Hemoglobin Concent 32.9, Red Cell Distribution Width 15.5H, Platelet Count 289, Mean Platelet Volume 6.5, Neutrophils (%) (Auto) 57.9, Lymphocytes (%) (Auto) 22.8, Monocytes (%) (Auto) 11.7H, Eosinophils (%) (Auto) 7.0H, Basophils (%) (Auto) 0.7, Erythrocyte Sedimentation Rate 82H, Sodium Level 133L, Potassium Level 3.8, Chloride Level 106, Carbon Dioxide Level 21, Anion Gap 6, Blood Urea Nitrogen 6L, Creatinine 0.7, Estimat Glomerular Filtration Rate > 60, Glucose Level 101, Calcium Level 7.5L, Phosphorus Level 2.6, Magnesium Level 1.6L, Total Bilirubin 0.3, Aspartate Amino Transf (AST/SGOT ) 21, Alanine Aminotransferase (ALT/SGPT) 10L, Alkaline Phosphatase 67, C- Reactive Protein, Quantitative 4.9H, Total Protein 6.4, Albumin 1.7L, Globulin 4.7, Albumin/Globulin Ratio 0.4L Current Medications Medications (Trade) Dose Ordered Sig/Deborah Route PRN Reason Start Time Stop Time Status Last Admin Dose Admin Acetaminophen (Tylenol) 650 mg Q4H PRN ORAL Mild Pain/Temp > 100.5 03/06/19 08:15 04/01/19 08:14 Acetaminophen/ Hydrocodone Bitart ([place] 5/325) 1 tab Q4H PRN ORAL Moderate Pain (Pain Scale 4-6) 03/06/19 07:00 03/09/19 06:59 Cefepime HCl 1 gm/ Dextrose 55 ml @ 110 mls/hr EVERY 12 HOURS IVPB 03/06/19 09:00 03/09/19 08:59 03/07/19 09:51 Loperamide HCl (Imodium) 2 mg Q4H PRN ORAL Diarrhea 03/06/19 13:45 04/05/19 13:44 Magnesium Sulfate 100 ml @ 100 mls/hr Q1H IVPB 03/07/19 11:30 03/07/19 17:29 03/07/19 11:32 Metronidazole 100 ml @ 100 mls/hr Q8HR IVPB 03/06/19 14:00 03/09/19 13:59 03/07/19 05:17 Morphine Sulfate (Morphine Sulfate) 2 mg Q4H PRN IVP Severe Pain (Pain Scale 7-10) 03/06/19 08:15 03/09/19 08:14 03/06/19 21:02 Ondansetron HCl (Zofran) 4 mg Q4H PRN IVP Nausea & Vomiting 03/06/19 08:15 04/01/19 08:14 Pantoprazole (Protonix) 40 mg DAILY ORAL 03/07/19 09:00 04/03/19 20:59 03/07/19 08:39 Sodium Chloride 250 ml @ 30 mls/hr ONCE ONCE IV 03/07/19 13:00 03/07/19 21:19 Tamsulosin HCl (Flomax) 0.4 mg BID ORAL 03/06/19 09:00 04/02/19 08:59 03/07/19 08:39 Trimethoprim/ Sulfamethoxazole (Bactrim-DS) 1 tab Q12HR ORAL 03/06/19 21:00 03/13/19 20:59 03/07/19 08:39 Rico Chavarria MD Mar 07, 2019 11:57
[2019-03-07 12:00] VITALS: BP 137/73
--- NOTE | 2019-03-07 12:52 | NUR ---
CASE MANAGEMENT:REVIEW 03/07/19 SI: SEPSIS. COPD. PNA 96.4 87 18 137/73 93% ON 2L WBC+16.2 H/H-9.2/27.9 CA-7.5 MAG-1.6 IS: IVF@30/HR IV MAG SULFATE Q1HRS X6 IV FLAGYL Q8HRS IV CEFEPIME Q12 FLOMAX PO BID : TELEMETRY STATUS DCP: FROM [facility]
[2019-03-07] MEDS ORDERED: NaCl 3% 500ml 250 ML IV ONE (13:00)
--- NOTE | 2019-03-07 13:39 | GI Progress Note ---
Assessment/Plan Problems: (1) Diarrhea ICD Codes: R19.7 - Diarrhea, unspecified SNOMED: 25793848 (2) Colitis ICD Codes: K52.9 - Noninfective gastroenteritis and colitis, unspecified SNOMED: 93492400, 296742001 Status: unchanged Status Narrative Discussed with Dr. Interiano. Assessment/Plan This is a 63-year-old male patient who presents to the emergency room with abdominal pain and complaint of diarrhea secondary to suspected colitis seen on CT scan. OB stool negative C. difficile negative stool culture negative KUB reviewed - No definite acute process. Nonspecific bowel gas pattern. - Markedly abnormal bilateral hips as described. Could represent sequelae of process such as old bilateral avascular necrosis with resultant secondary degenerative change, lung other possibilities patient refused colonoscopy hold stool softeners and laxatives Imodium prn, Lomotil for persistent diarrhea Advance diet as tolerated abx per ID PPI IV and p.o. hydration plus electrolyte correction Zofran as needed Pain management Outpatient colonoscopy if patient agrees The patient was seen and examined at bedside and all new and available data was reviewed in the patients chart. I agree with the above findings, impression and plan. (Patient seen earlier today. Signature stamp does not reflect patient encounter time.). - Mansoor Interiano MD Subjective Subjective abdominal distention denies any abdominal pain having episodes of diarrhea c/o of hip pain Objective Last 24 Hour Vital Signs Date Time Temp Pulse Resp B/P (MAP) Pulse Ox O2 Delivery O2 Flow Rate FiO2 03/07/19 12:00 98.4 87 18 137/73 (94) 93 03/07/19 09:00 Nasal Cannula 2.0 03/07/19 08:00 98.5 93 18 137/78 (97) 95 03/07/19 04:00 98.6 102 18 139/79 (99) 94 03/07/19 00:00 98.3 81 17 141/76 (97) 97 03/06/19 21:00 Nasal Cannula 2.0 03/06/19 20:10 98.1 88 19 148/82 (104) 98 03/06/19 16:18 96.7 03/06/19 16:00 97.5 84 19 137/73 (94) 99 Intake and Output 03/06/19 03/07/19 19:00 07:00 Intake Total 750 ml 450 ml Output Total 600 ml Balance 750 ml -150 ml Intake Oral 540 ml 240 ml IV Total 210 ml 210 ml Output Urine Total 600 ml # Voids 2 # Bowel Movements 1 1 Laboratory Tests Test 03/07/19 07:35 White Blood Count 16.2 K/UL (4.8-10.8) H Red Blood Count 3.36 M/UL (4.70-6.10) L Hemoglobin 9.2 G/DL (14.2-18.0) L Hematocrit 27.9 % (42.0-52.0) L Mean Corpuscular Volume 83 FL (80-99) Mean Corpuscular Hemoglobin 27.3 PG (27.0-31.0) Mean Corpuscular Hemoglobin Concent 32.9 G/DL (32.0-36.0) Red Cell Distribution Width 15.5 % (11.6-14.8) H Platelet Count 289 K/UL (150-450) Mean Platelet Volume 6.5 FL (6.5-10.1) Neutrophils (%) (Auto) 57.9 % (45.0-75.0) Lymphocytes (%) (Auto) 22.8 % (20.0-45.0) Monocytes (%) (Auto) 11.7 % (1.0-10.0) H Eosinophils (%) (Auto) 7.0 % (0.0-3.0) H Basophils (%) (Auto) 0.7 % (0.0-2.0) Erythrocyte Sedimentation Rate 82 MM/HR (0-20) H Sodium Level 133 MMOL/L (136-145) L Potassium Level 3.8 MMOL/L (3.5-5.1) Chloride Level 106 MMOL/L (98-107) Carbon Dioxide Level 21 MMOL/L (21-32) Anion Gap 6 mmol/L (5-15) Blood Urea Nitrogen 6 mg/dL (7-18) L Creatinine 0.7 MG/DL (0.55-1.30) Estimat Glomerular Filtration Rate > 60 mL/min (>60) Glucose Level 101 MG/DL (74-106) Calcium Level 7.5 MG/DL (8.5-10.1) L Phosphorus Level 2.6 MG/DL (2.5-4.9) Magnesium Level 1.6 MG/DL (1.8-2.4) L Total Bilirubin 0.3 MG/DL (0.2-1.0) Aspartate Amino Transf (AST/SGOT) 21 U/L (15-37) Alanine Aminotransferase (ALT/SGPT) 10 U/L (12-78) L Alkaline Phosphatase 67 U/L (46-116) C-Reactive Protein, Quantitative 4.9 mg/dL (0.00-0.90) H Total Protein 6.4 G/DL (6.4-8.2) Albumin 1.7 G/DL (3.4-5.0) L Globulin 4.7 g/dL Albumin/Globulin Ratio 0.4 (1.0-2.7) L Height (Feet): 6 Height (Inches): 1.00 Weight (Pounds): 190 General Appearance: WD/WN, no apparent distress, alert Cardiovascular: normal rate Respiratory/Chest: normal breath sounds, no respiratory distress Abdominal Exam: normal bowel sounds, non tender, soft Extremities: non-tender Leonides Mcelroy NP Mar 07, 2019 13:39
--- NOTE | 2019-03-07 14:29 | NUR ---
RD ASSESSMENT & RECOMMENDATIONS SEE CARE ACTIVITY FOR COMPLETE ASSESSMENT DAILY ESTIMATED NEEDS: Needs based on Wound/ 76kg 25-30 kcals/kg 8739-4577 total kcals 1.25-1.5 g protein/kg 95-114 g total protein 25-30 mL/kg 0855-1554 total fluid mLs NUTRITION DIAGNOSIS: * Increased kcal/prot needs R/T wound healing as evidenced by pt admitted w/ sacral stage 3 and BL heel DTPI wounds. * Altered GI function R/T suspected colitis seen as per CT scan as evidenced by persistent diarrheal episodes. CURRENT DIET:SOFT diet PO DIET RECOMMENDATIONS: Maintain soft diet ADDITIONAL RECOMMENDATIONS: * Calibrated bedscale wt for accurate CBW (w/ added P200 mattress + pump) * Wound healing: add MVI w/ min x1, Vit C 500mg QD : ZnSO4 220mg QD x 10 days, Vasquez 1pkt BID * Ensure Enlive x 1 and snacks BID w/ variable PO intake * Monitor lytes daily w/ diarrhea, replete as needed (low Na + mag) * Consider Probiotics
[2019-03-07 16:00] VITALS: BP 130/78
--- NOTE | 2019-03-07 17:16 | Surgery Progress Note ---
Surgery Progress Note Subjective Additional Comments no acute events comfortable states abd distention improved passing flatus no BM today tolerating some liquids decreased appetite leukocytosis Objective Last 24 Hour Vital Signs Date Time Temp Pulse Resp B/P (MAP) Pulse Ox O2 Delivery O2 Flow Rate FiO2 03/07/19 16:00 98.5 89 20 130/78 (95) 98 03/07/19 12:00 98.4 87 18 137/73 (94) 93 03/07/19 09:00 Nasal Cannula 2.0 03/07/19 08:00 98.5 93 18 137/78 (97) 95 03/07/19 04:00 98.6 102 18 139/79 (99) 94 03/07/19 00:00 98.3 81 17 141/76 (97) 97 03/06/19 21:00 Nasal Cannula 2.0 03/06/19 20:10 98.1 88 19 148/82 (104) 98 I&O Intake and Output 03/06/19 03/07/19 19:00 07:00 Intake Total 750 ml 450 ml Output Total 600 ml Balance 750 ml -150 ml Intake Oral 540 ml 240 ml IV Total 210 ml 210 ml Output Urine Total 600 ml # Voids 2 # Bowel Movements 1 1 Cardiovascular: RSR Respiratory: clear Abdomen: soft, flat, non-tender, present bowel sounds, non-distended, decreased bowel sounds Extremities: no tenderness, no cyanosis, other Laboratory Tests Test 03/07/19 07:35 White Blood Count 16.2 K/UL (4.8-10.8) H Red Blood Count 3.36 M/UL (4.70-6.10) L Hemoglobin 9.2 G/DL (14.2-18.0) L Hematocrit 27.9 % (42.0-52.0) L Mean Corpuscular Volume 83 FL (80-99) Mean Corpuscular Hemoglobin 27.3 PG (27.0-31.0) Mean Corpuscular Hemoglobin Concent 32.9 G/DL (32.0-36.0) Red Cell Distribution Width 15.5 % (11.6-14.8) H Platelet Count 289 K/UL (150-450) Mean Platelet Volume 6.5 FL (6.5-10.1) Neutrophils (%) (Auto) 57.9 % (45.0-75.0) Lymphocytes (%) (Auto) 22.8 % (20.0-45.0) Monocytes (%) (Auto) 11.7 % (1.0-10.0) H Eosinophils (%) (Auto) 7.0 % (0.0-3.0) H Basophils (%) (Auto) 0.7 % (0.0-2.0) Erythrocyte Sedimentation Rate 82 MM/HR (0-20) H Sodium Level 133 MMOL/L (136-145) L Potassium Level 3.8 MMOL/L (3.5-5.1) Chloride Level 106 MMOL/L (98-107) Carbon Dioxide Level 21 MMOL/L (21-32) Anion Gap 6 mmol/L (5-15) Blood Urea Nitrogen 6 mg/dL (7-18) L Creatinine 0.7 MG/DL (0.55-1.30) Estimat Glomerular Filtration Rate > 60 mL/min (>60) Glucose Level 101 MG/DL (74-106) Calcium Level 7.5 MG/DL (8.5-10.1) L Phosphorus Level 2.6 MG/DL (2.5-4.9) Magnesium Level 1.6 MG/DL (1.8-2.4) L Total Bilirubin 0.3 MG/DL (0.2-1.0) Aspartate Amino Transf (AST/SGOT) 21 U/L (15-37) Alanine Aminotransferase (ALT/SGPT) 10 U/L (12-78) L Alkaline Phosphatase 67 U/L (46-116) C-Reactive Protein, Quantitative 4.9 mg/dL (0.00-0.90) H Total Protein 6.4 G/DL (6.4-8.2) Albumin 1.7 G/DL (3.4-5.0) L Globulin 4.7 g/dL Albumin/Globulin Ratio 0.4 (1.0-2.7) L Plan Problems: (1) Decubitus skin ulcer Assessment & Plan: Pt presented on admission with multiple pressure injuries. Blood blisters to ezequiel R tibia and medial L tibia. Full Thickness stage 3 pressure injury Sacrum . Base of wound 60% biofilm,40% viable. Edges are macerated bordered by black and fluctuant base with additional wounds at R sacrum. No odor or exudate noted. Pt complained of pain at site when in supine. Rigidity noted to both lower extremities and pt heels are in continuously in contact. DTPI noted to medial R heel . Base of wound with purple with maroon borders and fluctuant at base (L)4cm x (W)4cm .Periwound R heel is boggy but blanchable. DTPI medial L heel . Base of wound is maroon with scattered purple areas and is fluctuant at base. Periwound L heel is boggy but blanchable. Tx.Plan: Cleanse Sacral wound with Saline. Apply Therahoney. Apply Moisture Barrier periwound. Cover with Optifoam drsg every 3 days and prn. Apply Cavilon Skin Barrier to blood blisters R and L tibia. Cover each wound with Optifoam drsg. Change every 7 days and prn. Apply Cavilon Skin Barrier to both heels. Cover each heel with Optifoam drsg. Change every 7 days and prn. APM/KRISTI Mattress overlay. Reposition at least every 2hours or as tolerated. Place pillow between lower ext to keep Heels apart. Off-load heels with pillow. (2) Colitis Assessment & Plan: Findings: Significant artifact limits evaluation. The lung bases notable for posterior basal atelectasis. Patchy groundglass opacities also noted nonspecific. Trace pericardial fluid demonstrated. No obvious hydronephrosis or stones identified. No obvious free fluid identified. Question of gallstones. Aortoiliac calcifications are present. There is thickening of the wall of the colon especially noted on the right side involving the ascending colon and cecum. Findings suspicious for colitis. Correlate clinically. There is thickening of the wall the urinary bladder. 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 Anasarca noted. IMPRESSION: Limited evaluation due to technical artifacts. Suspected colitis with the thickening of the wall the colon. Correlate clinically. Thickening of the wall the urinary bladder. Correlate for cystitis. -Seen by GI and recommended to have Colonoscopy but declined -today with abd distention and nausea -KUB ordered -Zofran prn will follow up with recs (3) Sepsis Assessment & Plan: febrile t max 104 - resolved leukocytosis - improving lactic acidosis - resolved exam improved CT with colitis likely etiology of sepsis cultures noted ABX as per ID OB stool negative C. difficile negative stool culture negative KUB reviewed - No definite acute process. Nonspecific bowel gas pattern. - Markedly abnormal bilateral hips as described. Could represent sequelae of process such as old bilateral avascular necrosis with resultant secondary degenerative change, lung other possibilities will follow with exam and recs okay for diet (4) Nausea vomiting and diarrhea César Romero Mar 07, 2019 17:15
--- NOTE | 2019-03-07 19:15 | NUR ---
HAND-OFF: Report given to ANJEL Martinez&ANJEL Ying.
--- NOTE | 2019-03-07 19:19 | NUR ---
NURSE NOTES: Received patient in bed and in no apparent distress. Patient denies pain at this time. Patient seems calm and comfortable. Call light within reach.
[2019-03-07 20:00] VITALS: BP 144/78
[2019-03-08] VITALS: BP 146/76
[2019-03-08] MEDS: Morphine Sulfate 2mg/ml Inj(IV/IM USE ONLY) IVP PRN ×3 (00:24→21:39)
[2019-03-08 04:00] VITALS: BP 135/73
[2019-03-08 06:25] LABS: EOSINOPHILS % (AUTO) 7.6 % (0.0-3.0); HEMATOCRIT 29.6 % (42.0-52.0); HEMOGLOBIN 9.8 G/DL (14.2-18.0); MEAN CORPUSCULAR VOLUME 83 FL (80-99); MONOCYTES % (AUTO) 12.6 % (1.0-10.0); NEUTROPHILS % (AUTO) 57.8 % (45.0-75.0); PLATELET COUNT 305 K/UL (150-450); RED BLOOD COUNT 3.57 M/UL (4.70-6.10); RED CELL DISTRIBUTION WIDTH 15.6 % (11.6-14.8); WHITE BLOOD COUNT 15.9 K/UL (4.8-10.8)
[2019-03-08 06:57] LABS: ANION GAP 6 mmol/L (5-15); BLOOD UREA NITROGEN 7 mg/dL (7-18); CALCIUM 7.9 MG/DL (8.5-10.1); CARBON DIOXIDE 22 MMOL/L (21-32); CHLORIDE 107 MMOL/L (98-107); CREATININE 0.8 MG/DL (0.55-1.30); POTASSIUM 4.2 MMOL/L (3.5-5.1); SODIUM 134 MMOL/L (136-145)
--- NOTE | 2019-03-08 07:28 | NUR ---
HAND-OFF: Report given to Drew HOBBS.
--- NOTE | 2019-03-08 07:30 | NUR ---
NURSE NOTES: Received pt from ANJEL Senior/yasmin. pt is awake A&O X4. Pt has NC 2LMP. pt has intact iv access RH 24G SL. Pt is eating breakfast by observation. all needs attended, bed is locked and is in the lowest position, call light within easy reach. will continue to monitor.
[2019-03-08 08:00] VITALS: BP 124/75
[2019-03-08] MEDS: Bactrim-DS 1 tab ORAL SCH ×2 (08:38→21:24)
[2019-03-08] MEDS: Tamsulosin 0.4mg cap ORAL SCH ×2 (08:38→17:19)
[2019-03-08] MEDS: Cefepime HCl 1 GM in D5W 55 ML IVPB SCH ×2 (08:39→21:25)
[2019-03-08 10:05] LABS: ALANINE AMINOTRANSFERASE 8 U/L (12-78); ALBUMIN 1.7 G/DL (3.4-5.0); ALKALINE PHOSPHATASE 68 U/L (46-116); ASPARTATE AMINO TRANSFERASE 27 U/L (15-37); BILIRUBIN,DIRECT 0.1 MG/DL (0.0-0.3); BILIRUBIN,TOTAL 0.3 MG/DL (0.2-1.0); PHOSPHORUS 2.7 MG/DL (2.5-4.9)
--- NOTE | 2019-03-08 11:15 | General Progress Note ---
Assessment/Plan Status: unchanged Assessment/Plan: Assessment/Plan Problems: (1) Diarrhea ICD Codes: R19.7 - Diarrhea, unspecified SNOMED: 47355102 (2) Colitis ICD Codes: K52.9 - Noninfective gastroenteritis and colitis, unspecified SNOMED: 15720016, [id number] Status: unchanged Status Narrative Discussed with Dr. Interiano. Assessment/Plan This is a 63-year-old male patient who presents to the emergency room with abdominal pain and complaint of diarrhea secondary to suspected colitis seen on CT scan. OB stool negative C. difficile negative stool culture negative KUB reviewed - No definite acute process. Nonspecific bowel gas pattern. - Markedly abnormal bilateral hips as described. Could represent sequelae of process such as old bilateral avascular necrosis with resultant secondary degenerative change, lung other possibilities patient refused colonoscopy hold stool softeners and laxatives Imodium prn, Lomotil for persistent diarrhea Advance diet as tolerated abx per ID PPI IV and p.o. hydration plus electrolyte correction Zofran as needed Pain management Outpatient colonoscopy if patient agrees Subjective ROS Limited/Unobtainable: Yes Allergies: Coded Allergies: No Known Allergies (Unverified , 03/02/19) Objective Last 24 Hour Vital Signs Date Time Temp Pulse Resp B/P (MAP) Pulse Ox O2 Delivery O2 Flow Rate FiO2 03/08/19 09:28 98.9 03/08/19 09:00 Nasal Cannula 2.0 03/08/19 08:00 97.7 92 20 124/75 (91) 95 03/08/19 04:00 98.9 92 18 135/73 (93) 95 03/08/19 00:00 99.7 89 18 146/76 (99) 98 03/07/19 21:00 Nasal Cannula 2.0 03/07/19 20:00 98.4 87 18 144/78 (100) 95 03/07/19 16:00 98.5 89 20 130/78 (95) 98 03/07/19 12:00 98.4 87 18 137/73 (94) 93 Intake and Output 03/07/19 03/08/19 19:00 07:00 Intake Total 630 ml 475 ml Output Total 400 ml 400 ml Balance 230 ml 75 ml Intake Oral 200 ml IV Total 630 ml 275 ml Output Urine Total 400 ml 400 ml # Voids 2 2 # Bowel Movements 1 Laboratory Tests 03/08/19 06:00: White Blood Count 15.9H, Red Blood Count 3.57L, Hemoglobin 9.8L, Hematocrit 29.6L, Mean Corpuscular Volume 83, Mean Corpuscular Hemoglobin 27.4, Mean Corpuscular Hemoglobin Concent 33.0, Red Cell Distribution Width 15.6H, Platelet Count 305, Mean Platelet Volume 6.0L, Neutrophils (%) (Auto) 57.8, Lymphocytes (%) (Auto) 21.0, Monocytes (%) (Auto) 12.6H, Eosinophils (%) (Auto) 7.6H, Basophils (%) (Auto) 1.0, Sodium Level 134L, Potassium Level 4.2, Chloride Level 107, Carbon Dioxide Level 22, Anion Gap 6, Blood Urea Nitrogen 7 , Creatinine 0.8, Estimat Glomerular Filtration Rate > 60, Glucose Level 94, Calcium Level 7.9L, Phosphorus Level 2.7, Magnesium Level 1.8, Total Bilirubin 0.3, Direct Bilirubin 0.1, Aspartate Amino Transf (AST/SGOT) 27, Alanine Aminotransferase (ALT/SGPT) 8L, Alkaline Phosphatase 68, Total Protein 6.3L, Albumin 1.7L, Echinococcus IgG Antibody [Pending], Entamoeba histolytica Antibody [Pending] Height (Feet): 6 Height (Inches): 1.00 Weight (Pounds): 190 General Appearance: alert EENT: normal ENT inspection Neck: supple Cardiovascular: normal rate Respiratory/Chest: decreased breath sounds Abdomen: normal bowel sounds, non tender, soft Extremities: non-tender Mansoor Interiano MD Mar 08, 2019 11:15
[2019-03-08 11:59] VITALS: BP 138/80
--- NOTE | 2019-03-08 12:59 | Nephrology Progress Note ---
Assessment/Plan Problem List: (1) Hyponatremia (2) HIV disease (3) Colitis (4) Sepsis (5) BPH (benign prostatic hyperplasia) Assessment HypoNatremia: Etiology? depletional Other Dx: sepsis ( leukocytosis, fever, lactic acidosis, evidence of infection) colitis elevated troponin r/o ACS vs demand ischemia tachycardia dehydration + HIV asymptomatic bacteriuria /? UTI with MRSA- hx of HTN COPD BPH sacral decub st 3 POA anemia severe hypo Mg , likely due to diarrhea Plan Mag IV 3% Saline as needed IV K supplement as needed Protonix monitor lytes per orders Subjective ROS Limited/Unobtainable: No Constitutional: Reports: malaise Objective Objective Last 24 Hour Vital Signs Date Time Temp Pulse Resp B/P (MAP) Pulse Ox O2 Delivery O2 Flow Rate FiO2 03/08/19 11:59 98.1 87 20 138/80 (99) 95 03/08/19 09:28 98.9 03/08/19 09:00 Nasal Cannula 2.0 03/08/19 08:00 97.7 92 20 124/75 (91) 95 03/08/19 04:00 98.9 92 18 135/73 (93) 95 03/08/19 00:00 99.7 89 18 146/76 (99) 98 03/07/19 21:00 Nasal Cannula 2.0 03/07/19 20:00 98.4 87 18 144/78 (100) 95 03/07/19 16:00 98.5 89 20 130/78 (95) 98 Intake and Output 03/07/19 03/08/19 19:00 07:00 Intake Total 630 ml 475 ml Output Total 400 ml 400 ml Balance 230 ml 75 ml Intake Oral 200 ml IV Total 630 ml 275 ml Output Urine Total 400 ml 400 ml # Voids 2 2 # Bowel Movements 1 Laboratory Tests 03/08/19 06:00: White Blood Count 15.9H, Red Blood Count 3.57L, Hemoglobin 9.8L, Hematocrit 29.6L, Mean Corpuscular Volume 83, Mean Corpuscular Hemoglobin 27.4, Mean Corpuscular Hemoglobin Concent 33.0, Red Cell Distribution Width 15.6H, Platelet Count 305, Mean Platelet Volume 6.0L, Neutrophils (%) (Auto) 57.8, Lymphocytes (%) (Auto) 21.0, Monocytes (%) (Auto) 12.6H, Eosinophils (%) (Auto) 7.6H, Basophils (%) (Auto) 1.0, Sodium Level 134L, Potassium Level 4.2, Chloride Level 107, Carbon Dioxide Level 22, Anion Gap 6, Blood Urea Nitrogen 7 , Creatinine 0.8, Estimat Glomerular Filtration Rate > 60, Glucose Level 94, Calcium Level 7.9L, Phosphorus Level 2.7, Magnesium Level 1.8, Total Bilirubin 0.3, Direct Bilirubin 0.1, Aspartate Amino Transf (AST/SGOT) 27, Alanine Aminotransferase (ALT/SGPT) 8L, Alkaline Phosphatase 68, Total Protein 6.3L, Albumin 1.7L, Echinococcus IgG Antibody [Pending], Entamoeba histolytica Antibody [Pending] Height (Feet): 6 Height (Inches): 1.00 Weight (Pounds): 190 General Appearance: no apparent distress Objective no change Zander Razo MD Mar 08, 2019 12:59
--- NOTE | 2019-03-08 13:09 | Pulmonology Progress Note ---
Assessment/Plan Problems: (1) Sepsis (2) COPD (chronic obstructive pulmonary disease) (3) Nausea vomiting and diarrhea (4) HCAP (healthcare-associated pneumonia) (5) BPH (benign prostatic hyperplasia) (6) Hypertension (7) HIV disease (8) COPD exacerbation Assessment/Plan wbc continues to rise HIV result noted, CD4 counts are pending respiratory treatment on Cefepime and flagyl and bacrim hemodynamically stable titrate fio2 to sat of 92% med/surg pt/ot Subjective ROS Limited/Unobtainable: No Constitutional: Reports: no symptoms HEENT: Repors: no symptoms Respiratory: Reports: no symptoms Allergies: Coded Allergies: No Known Allergies (Unverified , 03/02/19) Objective Last 24 Hour Vital Signs Date Time Temp Pulse Resp B/P (MAP) Pulse Ox O2 Delivery O2 Flow Rate FiO2 03/08/19 11:59 98.1 87 20 138/80 (99) 95 03/08/19 09:28 98.9 03/08/19 09:00 Nasal Cannula 2.0 03/08/19 08:00 97.7 92 20 124/75 (91) 95 03/08/19 04:00 98.9 92 18 135/73 (93) 95 03/08/19 00:00 99.7 89 18 146/76 (99) 98 03/07/19 21:00 Nasal Cannula 2.0 03/07/19 20:00 98.4 87 18 144/78 (100) 95 03/07/19 16:00 98.5 89 20 130/78 (95) 98 Intake and Output 03/07/19 03/08/19 19:00 07:00 Intake Total 630 ml 475 ml Output Total 400 ml 400 ml Balance 230 ml 75 ml Intake Oral 200 ml IV Total 630 ml 275 ml Output Urine Total 400 ml 400 ml # Voids 2 2 # Bowel Movements 1 General Appearance: WD/WN Respiratory/Chest: chest wall non-tender, lungs clear, normal breath sounds Cardiovascular: normal peripheral pulses Abdomen: no scars Extremities: no cyanosis Skin: no rash Laboratory Tests 03/08/19 06:00: White Blood Count 15.9H, Red Blood Count 3.57L, Hemoglobin 9.8L, Hematocrit 29.6L, Mean Corpuscular Volume 83, Mean Corpuscular Hemoglobin 27.4, Mean Corpuscular Hemoglobin Concent 33.0, Red Cell Distribution Width 15.6H, Platelet Count 305, Mean Platelet Volume 6.0L, Neutrophils (%) (Auto) 57.8, Lymphocytes (%) (Auto) 21.0, Monocytes (%) (Auto) 12.6H, Eosinophils (%) (Auto) 7.6H, Basophils (%) (Auto) 1.0, Sodium Level 134L, Potassium Level 4.2, Chloride Level 107, Carbon Dioxide Level 22, Anion Gap 6, Blood Urea Nitrogen 7 , Creatinine 0.8, Estimat Glomerular Filtration Rate > 60, Glucose Level 94, Calcium Level 7.9L, Phosphorus Level 2.7, Magnesium Level 1.8, Total Bilirubin 0.3, Direct Bilirubin 0.1, Aspartate Amino Transf (AST/SGOT) 27, Alanine Aminotransferase (ALT/SGPT) 8L, Alkaline Phosphatase 68, Total Protein 6.3L, Albumin 1.7L, Echinococcus IgG Antibody [Pending], Entamoeba histolytica Antibody [Pending] Current Medications Medications (Trade) Dose Ordered Sig/Deborah Route PRN Reason Start Time Stop Time Status Last Admin Dose Admin Acetaminophen (Tylenol) 650 mg Q4H PRN ORAL Mild Pain/Temp > 100.5 03/06/19 08:15 04/01/19 08:14 Acetaminophen/ Hydrocodone Bitart ([place] 5/325) 1 tab Q4H PRN ORAL Moderate Pain (Pain Scale 4-6) 03/08/19 15:00 03/11/19 14:59 Cefepime HCl 1 gm/ Dextrose 55 ml @ 110 mls/hr EVERY 12 HOURS IVPB 03/06/19 09:00 03/15/19 23:59 03/08/19 08:39 Loperamide HCl (Imodium) 2 mg Q4H PRN ORAL Diarrhea 03/06/19 13:45 04/05/19 13:44 Metronidazole 100 ml @ 100 mls/hr Q8HR IVPB 03/06/19 14:00 03/15/19 23:59 03/08/19 06:02 Morphine Sulfate (Morphine Sulfate) 2 mg Q4H PRN IVP Severe Pain (Pain Scale 7-10) 03/08/19 16:15 03/11/19 12:14 Ondansetron HCl (Zofran) 4 mg Q4H PRN IVP Nausea & Vomiting 03/06/19 08:15 04/01/19 08:14 Pantoprazole (Protonix) 40 mg DAILY ORAL 03/07/19 09:00 04/03/19 20:59 03/08/19 08:39 Tamsulosin HCl (Flomax) 0.4 mg BID ORAL 03/06/19 09:00 04/02/19 08:59 03/08/19 08:38 Trimethoprim/ Sulfamethoxazole (Bactrim-DS) 1 tab Q12HR ORAL 03/06/19 21:00 03/13/19 20:59 03/08/19 08:38 Rico Chavarria MD Mar 08, 2019 13:09
--- NOTE | 2019-03-08 13:38 | NUR ---
DISCHARGE PLANNING WAITING FOR CLEARANCE FROM ID MD TO DISCHARGE
--- NOTE | 2019-03-08 13:45 | NUR ---
NURSE NOTES: Dr MAYS is notified if clear pt to D/C, she answered pt can go but she needs to see him before discharging. waiting for Dr MAYS to come. will continue to monitor pt.
--- NOTE | 2019-03-08 14:43 | Internal Med Progress Note ---
Subjective Physician Name Oscar Martel Attending Physician Oscar Martel MD Current Medications Medications (Trade) Dose Ordered Sig/Deborah Route PRN Reason Start Time Stop Time Status Last Admin Dose Admin Acetaminophen (Tylenol) 650 mg Q4H PRN ORAL Mild Pain/Temp > 100.5 03/06/19 08:15 04/01/19 08:14 Acetaminophen/ Hydrocodone Bitart ([place] 5/325) 1 tab Q4H PRN ORAL Moderate Pain (Pain Scale 4-6) 03/08/19 15:00 03/11/19 14:59 Cefepime HCl 1 gm/ Dextrose 55 ml @ 110 mls/hr EVERY 12 HOURS IVPB 03/06/19 09:00 03/15/19 23:59 03/08/19 08:39 Loperamide HCl (Imodium) 2 mg Q4H PRN ORAL Diarrhea 03/06/19 13:45 04/05/19 13:44 Metronidazole 100 ml @ 100 mls/hr Q8HR IVPB 03/06/19 14:00 03/15/19 23:59 03/08/19 13:45 Morphine Sulfate (Morphine Sulfate) 2 mg Q4H PRN IVP Severe Pain (Pain Scale 7-10) 03/08/19 16:15 03/11/19 12:14 Ondansetron HCl (Zofran) 4 mg Q4H PRN IVP Nausea & Vomiting 03/06/19 08:15 04/01/19 08:14 Pantoprazole (Protonix) 40 mg DAILY ORAL 03/07/19 09:00 04/03/19 20:59 03/08/19 08:39 Tamsulosin HCl (Flomax) 0.4 mg BID ORAL 03/06/19 09:00 04/02/19 08:59 03/08/19 08:38 Trimethoprim/ Sulfamethoxazole (Bactrim-DS) 1 tab Q12HR ORAL 03/06/19 21:00 03/13/19 20:59 03/08/19 08:38 Allergies: Coded Allergies: No Known Allergies (Unverified , 03/02/19) Subjective Awake, alert, responsive, complain about poor appetite. WBC is 15.9 Objective Last Vital Signs Date Time Temp Pulse Resp B/P (MAP) Pulse Ox O2 Delivery O2 Flow Rate FiO2 03/08/19 11:59 98.1 87 20 138/80 (99) 95 03/08/19 09:00 Nasal Cannula 2.0 Laboratory Tests Test 03/08/19 06:00 White Blood Count 15.9 K/UL (4.8-10.8) H Red Blood Count 3.57 M/UL (4.70-6.10) L Hemoglobin 9.8 G/DL (14.2-18.0) L Hematocrit 29.6 % (42.0-52.0) L Mean Corpuscular Volume 83 FL (80-99) Mean Corpuscular Hemoglobin 27.4 PG (27.0-31.0) Mean Corpuscular Hemoglobin Concent 33.0 G/DL (32.0-36.0) Red Cell Distribution Width 15.6 % (11.6-14.8) H Platelet Count 305 K/UL (150-450) Mean Platelet Volume 6.0 FL (6.5-10.1) L Neutrophils (%) (Auto) 57.8 % (45.0-75.0) Lymphocytes (%) (Auto) 21.0 % (20.0-45.0) Monocytes (%) (Auto) 12.6 % (1.0-10.0) H Eosinophils (%) (Auto) 7.6 % (0.0-3.0) H Basophils (%) (Auto) 1.0 % (0.0-2.0) Sodium Level 134 MMOL/L (136-145) L Potassium Level 4.2 MMOL/L (3.5-5.1) Chloride Level 107 MMOL/L (98-107) Carbon Dioxide Level 22 MMOL/L (21-32) Anion Gap 6 mmol/L (5-15) Blood Urea Nitrogen 7 mg/dL (7-18) Creatinine 0.8 MG/DL (0.55-1.30) Estimat Glomerular Filtration Rate > 60 mL/min (>60) Glucose Level 94 MG/DL (74-106) Calcium Level 7.9 MG/DL (8.5-10.1) L Phosphorus Level 2.7 MG/DL (2.5-4.9) Magnesium Level 1.8 MG/DL (1.8-2.4) Total Bilirubin 0.3 MG/DL (0.2-1.0) Direct Bilirubin 0.1 MG/DL (0.0-0.3) Aspartate Amino Transf (AST/SGOT) 27 U/L (15-37) Alanine Aminotransferase (ALT/SGPT) 8 U/L (12-78) L Alkaline Phosphatase 68 U/L (46-116) Total Protein 6.3 G/DL (6.4-8.2) L Albumin 1.7 G/DL (3.4-5.0) L Echinococcus IgG Antibody Pending Entamoeba histolytica Antibody Pending Intake and Output 03/07/19 03/08/19 19:00 07:00 Intake Total 630 ml 475 ml Output Total 400 ml 400 ml Balance 230 ml 75 ml Intake Oral 200 ml IV Total 630 ml 275 ml Output Urine Total 400 ml 400 ml # Voids 2 2 # Bowel Movements 1 Objective GENERAL: The patient is awake, responsive, no acute distress, but chronically cachectic and malnutrition. HEAD AND NECK: Pupils are equal and reactive to light. Extraocular movements intact. NECK: Supple. No JVD. LUNGS: Good air entry. No wheezing or rales. Decreased air in bases. HEART: S1 and S2. Distant heart sounds. No murmur or gallops. ABDOMEN: Soft, mildly distended. No rebound tenderness. Generalized tenderness. RECTAL: Refused and deferred. GENITOURINARY: Refused and deferred. PSYCHIATRIC: Mood and affect intact. Gait was not assessed due to the patient' s status. SKIN: Full thickness stage III pressure ulcer in the sacrum was noted presented on admission. NEUROLOGIC: Cranial nerves II through XII grossly intact. The patient moving all extremities. Lower extremities weaker than upper extremity and tender to touch in the lower extremity. Assessment/Plan Assessment/Plan ASSESSMENT: 1. Mild elevation of troponin most likely demand ischemia. 2. Severe dehydration with hypovolemia. 3. Anemia most likely secondary to the intra-abdominal infection. 4. Colitis. 5. BPH. 6. Hypertension presently hypotensive. 7. COPD. 8. Hyponatremia. 9. Pressure ulcer stage III sacrum present on admission. 10. Acute urinary tract infection. PLAN: Abx: cefepime, Bactrim, and Flagyl. Dr. Chavarria from Pulmonary Critical Care Dr. Romero from General surgery. Monitor laboratory as well as cultures. Code status Full code. DVT prophylaxis with heparin subcutaneous. Followup with wound care of the sacral ulcer. DC planning in 1 or 2 days. Oscar Martel MD Mar 08, 2019 14:43
[2019-03-08] MEDS ORDERED: HYDROcodone/Acetamin 5/325 tab ORAL PRN (15:00)
[2019-03-08 16:00] VITALS: BP 129/74
--- NOTE | 2019-03-08 16:25 | Infectious Diseases Prog Note ---
Assessment/Plan Assessment/Plan 63yo man admitted with abdominal pain. Fever, SP Leukocytosis, improving Lactic acidosis, SP diarrhea/colitis, SP pt declined colonoscopy CT: Suspected colitis with the thickening of the wall the colon. Correlate clinically. Thickening of the wall the urinary bladder. Correlate for cystitis. C diff negative stool cx negative unlikely UTI UA negative UCx Staph, likely colonizer HIV Screen positive HIV-1 Abt positive. 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 CD4 180 RPR negative stool o/p negative discussed lab result with patient, he is in denial stating that he does not have HIV and that the hospital gave him HIV pt is not interested in starting medication at this time offered to provide more information including treatment options and prognosis but pt declined 1. COPD. 2. Hypertension. 3. BPH. 4. History of cocaine abuse in the past. 5. Bedbound. PLAN: continue cefepime and flagyl #7. Bactrim DS BID #3/10 for cyclospora and isospora. Pt can be DCed on Bactrim DS BID 7 days, cipro 500mg PO BID 3 days, flagyl 500mg q8H 3 days. monitor CBC, temp f/u bcx Entamoeba, Giardia pt must follow up with PMD/HIV specialist once discharged Thank you, Dr. Martel, for allowing me to participate in the care of this patient. I will follow the patient with you during this admission. Subjective Allergies: Coded Allergies: No Known Allergies (Unverified , 03/02/19) Subjective Afebrile. Pt reports having diarrhea but then according to [employer], no stool today. Objective Vital Signs Last 24 Hour Vital Signs Date Time Temp Pulse Resp B/P (MAP) Pulse Ox O2 Delivery O2 Flow Rate FiO2 03/08/19 11:59 98.1 87 20 138/80 (99) 95 03/08/19 09:28 98.9 03/08/19 09:00 Nasal Cannula 2.0 03/08/19 08:00 97.7 92 20 124/75 (91) 95 03/08/19 04:00 98.9 92 18 135/73 (93) 95 03/08/19 00:00 99.7 89 18 146/76 (99) 98 03/07/19 21:00 Nasal Cannula 2.0 03/07/19 20:00 98.4 87 18 144/78 (100) 95 Height (Feet): 6 Height (Inches): 1.00 Weight (Pounds): 190 Objective HEENT: No pale conjunctivae. No icterus. NECK: No lymphadenopathy. CHEST: Coarse breathing sounds. HEART: S1 and S2. ABDOMEN: Mildly distended. The patient has lower abdominal pain. No rebound. EXTREMITIES: No cellulitis or cyanosis. SKIN: Stage III decubitus in the sacral area, not grossly infected. Laboratory Tests Test 03/08/19 06:00 White Blood Count 15.9 K/UL (4.8-10.8) H Red Blood Count 3.57 M/UL (4.70-6.10) L Hemoglobin 9.8 G/DL (14.2-18.0) L Hematocrit 29.6 % (42.0-52.0) L Mean Corpuscular Volume 83 FL (80-99) Mean Corpuscular Hemoglobin 27.4 PG (27.0-31.0) Mean Corpuscular Hemoglobin Concent 33.0 G/DL (32.0-36.0) Red Cell Distribution Width 15.6 % (11.6-14.8) H Platelet Count 305 K/UL (150-450) Mean Platelet Volume 6.0 FL (6.5-10.1) L Neutrophils (%) (Auto) 57.8 % (45.0-75.0) Lymphocytes (%) (Auto) 21.0 % (20.0-45.0) Monocytes (%) (Auto) 12.6 % (1.0-10.0) H Eosinophils (%) (Auto) 7.6 % (0.0-3.0) H Basophils (%) (Auto) 1.0 % (0.0-2.0) Sodium Level 134 MMOL/L (136-145) L Potassium Level 4.2 MMOL/L (3.5-5.1) Chloride Level 107 MMOL/L (98-107) Carbon Dioxide Level 22 MMOL/L (21-32) Anion Gap 6 mmol/L (5-15) Blood Urea Nitrogen 7 mg/dL (7-18) Creatinine 0.8 MG/DL (0.55-1.30) Estimat Glomerular Filtration Rate > 60 mL/min (>60) Glucose Level 94 MG/DL (74-106) Calcium Level 7.9 MG/DL (8.5-10.1) L Phosphorus Level 2.7 MG/DL (2.5-4.9) Magnesium Level 1.8 MG/DL (1.8-2.4) Total Bilirubin 0.3 MG/DL (0.2-1.0) Direct Bilirubin 0.1 MG/DL (0.0-0.3) Aspartate Amino Transf (AST/SGOT) 27 U/L (15-37) Alanine Aminotransferase (ALT/SGPT) 8 U/L (12-78) L Alkaline Phosphatase 68 U/L (46-116) Total Protein 6.3 G/DL (6.4-8.2) L Albumin 1.7 G/DL (3.4-5.0) L Echinococcus IgG Antibody Pending Entamoeba histolytica Antibody Pending Current Medications Medications (Trade) Dose Ordered Sig/Deborah Route PRN Reason Start Time Stop Time Status Last Admin Dose Admin Acetaminophen (Tylenol) 650 mg Q4H PRN ORAL Mild Pain/Temp > 100.5 03/06/19 08:15 04/01/19 08:14 Acetaminophen/ Hydrocodone Bitart ([place] 5/325) 1 tab Q4H PRN ORAL Moderate Pain (Pain Scale 4-6) 03/08/19 15:00 03/11/19 14:59 Cefepime HCl 1 gm/ Dextrose 55 ml @ 110 mls/hr EVERY 12 HOURS IVPB 03/06/19 09:00 03/15/19 23:59 03/08/19 08:39 Loperamide HCl (Imodium) 2 mg Q4H PRN ORAL Diarrhea 03/06/19 13:45 04/05/19 13:44 Metronidazole 100 ml @ 100 mls/hr Q8HR IVPB 03/06/19 14:00 03/15/19 23:59 03/08/19 13:45 Morphine Sulfate (Morphine Sulfate) 2 mg Q4H PRN IVP Severe Pain (Pain Scale 7-10) 03/08/19 16:15 03/11/19 12:14 Ondansetron HCl (Zofran) 4 mg Q4H PRN IVP Nausea & Vomiting 03/06/19 08:15 04/01/19 08:14 Pantoprazole (Protonix) 40 mg DAILY ORAL 03/07/19 09:00 04/03/19 20:59 03/08/19 08:39 Tamsulosin HCl (Flomax) 0.4 mg BID ORAL 03/06/19 09:00 04/02/19 08:59 03/08/19 08:38 Trimethoprim/ Sulfamethoxazole (Bactrim-DS) 1 tab Q12HR ORAL 03/06/19 21:00 03/13/19 20:59 03/08/19 08:38 Olegario Carroll MD Mar 08, 2019 16:25
--- NOTE | 2019-03-08 16:58 | Infectious Diseases Prog Note ---
Assessment/Plan Assessment/Plan 63yo man admitted with abdominal pain and diarrhea. Fever, SP Leukocytosis, improving Lactic acidosis, SP diarrhea/colitis, SP 03/02 CT: Suspected colitis with the thickening of the wall the colon. Correlate clinically. Thickening of the wall the urinary bladder. Correlate for cystitis. C diff negative stool cx negative stool o/p negative it appears pt had an episode of diarrhea/colitis back in January as well. Dx with UTI and given cipro. Then had C diff 02/15 given recurrent diarrhea, recommend colonoscopy but pt refused. pt also has been refusing other care(ie/ PT, physical exams) Pt has history of diarrhea 02/08/19 and was hospitalized at [facility] and dx with IBD without flare 02/07 CT: pulm emphysema, atelectasis at lung bases, unchanged circumferential bladder wall thickening, nonspecific. diffuse thickening of the wall of hepatic flexure and ascending colon. indicate inflammatory bowel disease or ischemia. severe degenerative changes of hips. unlikely UTI UA pos UCx Staph, likely colonizer HIV Screen positive HIV-1 Abt positive. 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 CD4 180 RPR negative stool o/p negative discussed lab result with patient, he is in denial stating that he does not have HIV and that the hospital gave him HIV pt is not interested in starting medication at this time offered to provide more information including treatment options and prognosis but pt declined 1. COPD. 2. Hypertension. 3. BPH. 4. History of cocaine abuse in the past. 5. Bedbound. PLAN: continue cefepime and flagyl #7. Bactrim DS BID #3/10 for cyclospora and isospora. Pt can be DCed on Bactrim DS BID 7 days, cipro 500mg PO BID 3 days, flagyl 500mg q8H 3 days. monitor CBC, temp f/u bcx Entamoeba, Giardia pt must follow up with PMD/HIV specialist once discharged Thank you, Dr. Martel, for allowing me to participate in the care of this patient. I will follow the patient with you during this admission. Subjective Allergies: Coded Allergies: No Known Allergies (Unverified , 03/02/19) Subjective Afebrile. Pt reports having diarrhea but then according to [employer], no stool today. Reports abdominal pain. Refusing abdominal exam. Denies chills, cough, sob, dysuria. Objective Vital Signs Last 24 Hour Vital Signs Date Time Temp Pulse Resp B/P (MAP) Pulse Ox O2 Delivery O2 Flow Rate FiO2 03/08/19 16:00 97.2 95 20 129/74 (92) 97 03/08/19 11:59 98.1 87 20 138/80 (99) 95 03/08/19 09:28 98.9 03/08/19 09:00 Nasal Cannula 2.0 03/08/19 08:00 97.7 92 20 124/75 (91) 95 03/08/19 04:00 98.9 92 18 135/73 (93) 95 03/08/19 00:00 99.7 89 18 146/76 (99) 98 03/07/19 21:00 Nasal Cannula 2.0 03/07/19 20:00 98.4 87 18 144/78 (100) 95 Height (Feet): 6 Height (Inches): 1.00 Weight (Pounds): 190 Objective HEENT: No pale conjunctivae. No icterus. NECK: No lymphadenopathy. CHEST: Coarse breathing sounds. HEART: S1 and S2. Abd: refused exam EXTREMITIES: No cellulitis or cyanosis. SKIN: Stage III decubitus in the sacral area Laboratory Tests Test 03/08/19 06:00 White Blood Count 15.9 K/UL (4.8-10.8) H Red Blood Count 3.57 M/UL (4.70-6.10) L Hemoglobin 9.8 G/DL (14.2-18.0) L Hematocrit 29.6 % (42.0-52.0) L Mean Corpuscular Volume 83 FL (80-99) Mean Corpuscular Hemoglobin 27.4 PG (27.0-31.0) Mean Corpuscular Hemoglobin Concent 33.0 G/DL (32.0-36.0) Red Cell Distribution Width 15.6 % (11.6-14.8) H Platelet Count 305 K/UL (150-450) Mean Platelet Volume 6.0 FL (6.5-10.1) L Neutrophils (%) (Auto) 57.8 % (45.0-75.0) Lymphocytes (%) (Auto) 21.0 % (20.0-45.0) Monocytes (%) (Auto) 12.6 % (1.0-10.0) H Eosinophils (%) (Auto) 7.6 % (0.0-3.0) H Basophils (%) (Auto) 1.0 % (0.0-2.0) Sodium Level 134 MMOL/L (136-145) L Potassium Level 4.2 MMOL/L (3.5-5.1) Chloride Level 107 MMOL/L (98-107) Carbon Dioxide Level 22 MMOL/L (21-32) Anion Gap 6 mmol/L (5-15) Blood Urea Nitrogen 7 mg/dL (7-18) Creatinine 0.8 MG/DL (0.55-1.30) Estimat Glomerular Filtration Rate > 60 mL/min (>60) Glucose Level 94 MG/DL (74-106) Calcium Level 7.9 MG/DL (8.5-10.1) L Phosphorus Level 2.7 MG/DL (2.5-4.9) Magnesium Level 1.8 MG/DL (1.8-2.4) Total Bilirubin 0.3 MG/DL (0.2-1.0) Direct Bilirubin 0.1 MG/DL (0.0-0.3) Aspartate Amino Transf (AST/SGOT) 27 U/L (15-37) Alanine Aminotransferase (ALT/SGPT) 8 U/L (12-78) L Alkaline Phosphatase 68 U/L (46-116) Total Protein 6.3 G/DL (6.4-8.2) L Albumin 1.7 G/DL (3.4-5.0) L Echinococcus IgG Antibody Pending Entamoeba histolytica Antibody Pending Current Medications Medications (Trade) Dose Ordered Sig/Deborah Route PRN Reason Start Time Stop Time Status Last Admin Dose Admin Acetaminophen (Tylenol) 650 mg Q4H PRN ORAL Mild Pain/Temp > 100.5 03/06/19 08:15 04/01/19 08:14 Acetaminophen/ Hydrocodone Bitart ([place] 5/325) 1 tab Q4H PRN ORAL Moderate Pain (Pain Scale 4-6) 03/08/19 15:00 03/11/19 14:59 Cefepime HCl 1 gm/ Dextrose 55 ml @ 110 mls/hr EVERY 12 HOURS IVPB 03/06/19 09:00 03/15/19 23:59 03/08/19 08:39 Loperamide HCl (Imodium) 2 mg Q4H PRN ORAL Diarrhea 03/06/19 13:45 04/05/19 13:44 Metronidazole 100 ml @ 100 mls/hr Q8HR IVPB 03/06/19 14:00 03/15/19 23:59 03/08/19 13:45 Morphine Sulfate (Morphine Sulfate) 2 mg Q4H PRN IVP Severe Pain (Pain Scale 7-10) 03/08/19 16:15 03/11/19 12:14 Ondansetron HCl (Zofran) 4 mg Q4H PRN IVP Nausea & Vomiting 03/06/19 08:15 04/01/19 08:14 Pantoprazole (Protonix) 40 mg DAILY ORAL 03/07/19 09:00 04/03/19 20:59 03/08/19 08:39 Tamsulosin HCl (Flomax) 0.4 mg BID ORAL 03/06/19 09:00 04/02/19 08:59 03/08/19 08:38 Trimethoprim/ Sulfamethoxazole (Bactrim-DS) 1 tab Q12HR ORAL 03/06/19 21:00 03/13/19 20:59 03/08/19 08:38 Olegario Carroll MD Mar 08, 2019 16:58
--- NOTE | 2019-03-08 17:38 | Surgery Progress Note ---
Surgery Progress Note Subjective Additional Comments comfortable no complaints no n/v/f/c no pain tolerating diet flatus leukocytosis 15k exam stable and asymptomatic Objective Last 24 Hour Vital Signs Date Time Temp Pulse Resp B/P (MAP) Pulse Ox O2 Delivery O2 Flow Rate FiO2 03/08/19 16:00 97.2 95 20 129/74 (92) 97 03/08/19 11:59 98.1 87 20 138/80 (99) 95 03/08/19 09:28 98.9 03/08/19 09:00 Nasal Cannula 2.0 03/08/19 08:00 97.7 92 20 124/75 (91) 95 03/08/19 04:00 98.9 92 18 135/73 (93) 95 03/08/19 00:00 99.7 89 18 146/76 (99) 98 03/07/19 21:00 Nasal Cannula 2.0 03/07/19 20:00 98.4 87 18 144/78 (100) 95 I&O Intake and Output 03/07/19 03/08/19 19:00 07:00 Intake Total 630 ml 475 ml Output Total 400 ml 400 ml Balance 230 ml 75 ml Intake Oral 200 ml IV Total 630 ml 275 ml Output Urine Total 400 ml 400 ml # Voids 2 2 # Bowel Movements 1 Dressing: other Wound: other Drains: other Cardiovascular: RSR Respiratory: decreased breath sounds Abdomen: soft, present bowel sounds, non-distended Extremities: no tenderness, no cyanosis, other Laboratory Tests Test 03/08/19 06:00 White Blood Count 15.9 K/UL (4.8-10.8) H Red Blood Count 3.57 M/UL (4.70-6.10) L Hemoglobin 9.8 G/DL (14.2-18.0) L Hematocrit 29.6 % (42.0-52.0) L Mean Corpuscular Volume 83 FL (80-99) Mean Corpuscular Hemoglobin 27.4 PG (27.0-31.0) Mean Corpuscular Hemoglobin Concent 33.0 G/DL (32.0-36.0) Red Cell Distribution Width 15.6 % (11.6-14.8) H Platelet Count 305 K/UL (150-450) Mean Platelet Volume 6.0 FL (6.5-10.1) L Neutrophils (%) (Auto) 57.8 % (45.0-75.0) Lymphocytes (%) (Auto) 21.0 % (20.0-45.0) Monocytes (%) (Auto) 12.6 % (1.0-10.0) H Eosinophils (%) (Auto) 7.6 % (0.0-3.0) H Basophils (%) (Auto) 1.0 % (0.0-2.0) Sodium Level 134 MMOL/L (136-145) L Potassium Level 4.2 MMOL/L (3.5-5.1) Chloride Level 107 MMOL/L (98-107) Carbon Dioxide Level 22 MMOL/L (21-32) Anion Gap 6 mmol/L (5-15) Blood Urea Nitrogen 7 mg/dL (7-18) Creatinine 0.8 MG/DL (0.55-1.30) Estimat Glomerular Filtration Rate > 60 mL/min (>60) Glucose Level 94 MG/DL (74-106) Calcium Level 7.9 MG/DL (8.5-10.1) L Phosphorus Level 2.7 MG/DL (2.5-4.9) Magnesium Level 1.8 MG/DL (1.8-2.4) Total Bilirubin 0.3 MG/DL (0.2-1.0) Direct Bilirubin 0.1 MG/DL (0.0-0.3) Aspartate Amino Transf (AST/SGOT) 27 U/L (15-37) Alanine Aminotransferase (ALT/SGPT) 8 U/L (12-78) L Alkaline Phosphatase 68 U/L (46-116) Total Protein 6.3 G/DL (6.4-8.2) L Albumin 1.7 G/DL (3.4-5.0) L Echinococcus IgG Antibody Pending Entamoeba histolytica Antibody Pending Plan Problems: (1) Decubitus skin ulcer Assessment & Plan: Pt presented on admission with multiple pressure injuries. Blood blisters to ezequiel R tibia and medial L tibia. Full Thickness stage 3 pressure injury Sacrum . Base of wound 60% biofilm,40% viable. Edges are macerated bordered by black and fluctuant base with additional wounds at R sacrum. No odor or exudate noted. Pt complained of pain at site when in supine. Rigidity noted to both lower extremities and pt heels are in continuously in contact. DTPI noted to medial R heel . Base of wound with purple with maroon borders and fluctuant at base (L)4cm x (W)4cm .Periwound R heel is boggy but blanchable. DTPI medial L heel . Base of wound is maroon with scattered purple areas and is fluctuant at base. Periwound L heel is boggy but blanchable. Tx.Plan: Cleanse Sacral wound with Saline. Apply Therahoney. Apply Moisture Barrier periwound. Cover with Optifoam drsg every 3 days and prn. Apply Cavilon Skin Barrier to blood blisters R and L tibia. Cover each wound with Optifoam drsg. Change every 7 days and prn. Apply Cavilon Skin Barrier to both heels. Cover each heel with Optifoam drsg. Change every 7 days and prn. APM/KRISTI Mattress overlay. Reposition at least every 2hours or as tolerated. Place pillow between lower ext to keep Heels apart. Off-load heels with pillow. (2) Colitis Assessment & Plan: Findings: Significant artifact limits evaluation. The lung bases notable for posterior basal atelectasis. Patchy groundglass opacities also noted nonspecific. Trace pericardial fluid demonstrated. No obvious hydronephrosis or stones identified. No obvious free fluid identified. Question of gallstones. Aortoiliac calcifications are present. There is thickening of the wall of the colon especially noted on the right side involving the ascending colon and cecum. Findings suspicious for colitis. Correlate clinically. There is thickening of the wall the urinary bladder. 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 Anasarca noted. IMPRESSION: Limited evaluation due to technical artifacts. Suspected colitis with the thickening of the wall the colon. Correlate clinically. Thickening of the wall the urinary bladder. Correlate for cystitis. -Seen by GI and recommended to have Colonoscopy but declined -KUB noted and okay exam improved no n/v/f/c -Zofran prn will follow up with recs (3) Sepsis Assessment & Plan: febrile t max 104 - resolved leukocytosis - improving lactic acidosis - resolved exam improved CT with colitis likely etiology of sepsis cultures noted ABX as per ID OB stool negative C. difficile negative stool culture negative KUB reviewed - No definite acute process. Nonspecific bowel gas pattern. - Markedly abnormal bilateral hips as described. Could represent sequelae of process such as old bilateral avascular necrosis with resultant secondary degenerative change, lung other possibilities improving will follow with exam and recs okay for diet (4) Nausea vomiting and diarrhea César Romero Mar 08, 2019 17:38
--- NOTE | 2019-03-08 19:18 | NUR ---
HAND-OFF: Report given to ANJEL LUA.
--- NOTE | 2019-03-08 19:30 | NUR ---
NURSE NOTES: Received patient in no apparent distress. A&OX4. 2L NC on. IV site patent and intact. Bed in lowest position. Call light within reach. Will continue to monitor.
[2019-03-08 20:00] VITALS: BP 140/80
[2019-03-08] MEDS: metroNIDAZOLE 500mg tab ORAL SCH (21:24)
[2019-03-09] VITALS: BP 134/69
[2019-03-09 04:00] VITALS: BP 135/72
[2019-03-09] MEDS: metroNIDAZOLE 500mg tab ORAL SCH ×3 (06:03→21:08)
--- NOTE | 2019-03-09 07:17 | NUR ---
HAND-OFF: Report given to Drew HOBBS.
--- NOTE | 2019-03-09 07:18 | NUR ---
NURSE NOTES: Received pt from ANJEL LUA. pt is awake A&O X4. Pt has NC 2LMP. pt has intact iv access RH 24G SL. Pt is eating breakfast by observation. all needs attended, bed is locked and is in the lowest position, call light within easy reach. will continue to monitor.
[2019-03-09 08:00] VITALS: BP 121/70
[2019-03-09] MEDS: Bactrim-DS 1 tab ORAL SCH ×2 (08:01→21:08)
[2019-03-09] MEDS: Tamsulosin 0.4mg cap ORAL SCH ×3 (08:01→17:41)
[2019-03-09] MEDS: Morphine Sulfate 2mg/ml Inj(IV/IM USE ONLY) IVP PRN ×2 (08:01→20:01)
[2019-03-09] MEDS: Cefepime HCl 1 GM in D5W 55 ML IVPB SCH ×2 (08:01→21:08)
--- NOTE | 2019-03-09 09:42 | General Progress Note ---
Assessment/Plan Status: unchanged Assessment/Plan: Assessment/Plan Problems: (1) Diarrhea ICD Codes: R19.7 - Diarrhea, unspecified SNOMED: 56490438 (2) Colitis ICD Codes: K52.9 - Noninfective gastroenteritis and colitis, unspecified SNOMED: 30160282, [id number] Status: unchanged Status Narrative Discussed with Dr. Interiano. Assessment/Plan This is a 63-year-old male patient who presents to the emergency room with abdominal pain and complaint of diarrhea secondary to suspected colitis seen on CT scan. OB stool negative C. difficile negative stool culture negative KUB reviewed - No definite acute process. Nonspecific bowel gas pattern. - Markedly abnormal bilateral hips as described. Could represent sequelae of process such as old bilateral avascular necrosis with resultant secondary degenerative change, lung other possibilities patient refused colonoscopy hold stool softeners and laxatives Imodium prn, Lomotil for persistent diarrhea abx per ID PPI IV and p.o. hydration plus electrolyte correction Zofran as needed Pain management Outpatient colonoscopy if patient agrees Subjective ROS Limited/Unobtainable: Yes Allergies: Coded Allergies: No Known Allergies (Unverified , 03/02/19) Objective Last 24 Hour Vital Signs Date Time Temp Pulse Resp B/P (MAP) Pulse Ox O2 Delivery O2 Flow Rate FiO2 03/09/19 09:00 Nasal Cannula 2.0 03/09/19 08:31 97.9 03/09/19 08:00 97.9 87 19 121/70 (87) 98 03/09/19 04:00 97.9 85 18 135/72 (93) 96 03/09/19 00:00 98.2 89 18 134/69 (90) 98 03/08/19 21:00 Nasal Cannula 2.0 03/08/19 20:00 98.1 92 20 140/80 (100) 96 03/08/19 16:00 97.2 95 20 129/74 (92) 97 03/08/19 11:59 98.1 87 20 138/80 (99) 95 Intake and Output 03/08/19 03/09/19 19:00 07:00 Intake Total 395 ml 55 ml Output Total 450 ml 550 ml Balance -55 ml -495 ml Intake Oral 240 ml IV Total 155 ml 55 ml Output Urine Total 450 ml 550 ml # Voids 2 1 # Bowel Movements 1 Height (Feet): 6 Height (Inches): 1.00 Weight (Pounds): 190 General Appearance: alert EENT: normal ENT inspection Neck: supple Cardiovascular: normal rate Respiratory/Chest: decreased breath sounds Abdomen: normal bowel sounds, non tender, soft Extremities: non-tender Mansoor Interiano MD Mar 09, 2019 09:42
[2019-03-09 10:29] LABS: ALANINE AMINOTRANSFERASE 9 U/L (12-78); ALBUMIN 1.7 G/DL (3.4-5.0); ALBUMIN/GLOBULIN RATIO 0.4 (1.0-2.7); ALKALINE PHOSPHATASE 59 U/L (46-116); ANION GAP 6 mmol/L (5-15); ASPARTATE AMINO TRANSFERASE 22 U/L (15-37); BILIRUBIN,TOTAL 0.3 MG/DL (0.2-1.0); BLOOD UREA NITROGEN 6 mg/dL (7-18); CALCIUM 7.6 MG/DL (8.5-10.1); CARBON DIOXIDE 20 MMOL/L (21-32); CHLORIDE 107 MMOL/L (98-107); CREATININE 0.7 MG/DL (0.55-1.30); PHOSPHORUS 2.8 MG/DL (2.5-4.9); POTASSIUM 4.3 MMOL/L (3.5-5.1); SODIUM 133 MMOL/L (136-145)
--- NOTE | 2019-03-09 11:48 | NUR ---
DISCHARGE PLANNING FAXED CLINICALS TO [facility] T: [phone] F: [phone] PLEASE F/U FOR ROOM NUMBER ONCE DISCHARGE HAS BEEN ORDERED
[2019-03-09 12:00] VITALS: BP 119/70
[2019-03-09] MEDS ORDERED: Lomotil 2.5mg tab ORAL PRN (12:30)
--- NOTE | 2019-03-09 12:30 | Pulmonology Progress Note ---
Assessment/Plan Problems: (1) Sepsis (2) COPD (chronic obstructive pulmonary disease) (3) Nausea vomiting and diarrhea (4) HCAP (healthcare-associated pneumonia) (5) BPH (benign prostatic hyperplasia) (6) Hypertension (7) HIV disease (8) COPD exacerbation Assessment/Plan wbc still elevated HIV result noted, CD4 180 respiratory treatment on Cefepime and flagyl and bacrim hemodynamically stable stool for Cdiff was negative 5 days ago, repeat again titrate fio2 to sat of 92% med/surg pt/ot Subjective ROS Limited/Unobtainable: No Interval Events: had diarrhea Allergies: Coded Allergies: No Known Allergies (Unverified , 03/02/19) Objective Last 24 Hour Vital Signs Date Time Temp Pulse Resp B/P (MAP) Pulse Ox O2 Delivery O2 Flow Rate FiO2 03/09/19 12:00 97.9 87 16 119/70 (86) 98 03/09/19 09:00 Nasal Cannula 2.0 03/09/19 08:31 97.9 03/09/19 08:00 97.9 87 19 121/70 (87) 98 03/09/19 04:00 97.9 85 18 135/72 (93) 96 03/09/19 00:00 98.2 89 18 134/69 (90) 98 03/08/19 21:00 Nasal Cannula 2.0 03/08/19 20:00 98.1 92 20 140/80 (100) 96 03/08/19 16:00 97.2 95 20 129/74 (92) 97 Intake and Output 03/08/19 03/09/19 19:00 07:00 Intake Total 395 ml 55 ml Output Total 450 ml 550 ml Balance -55 ml -495 ml Intake Oral 240 ml IV Total 155 ml 55 ml Output Urine Total 450 ml 550 ml # Voids 2 1 # Bowel Movements 1 General Appearance: cachetic HEENT: normocephalic, atraumatic Respiratory/Chest: chest wall non-tender, normal breath sounds Cardiovascular: normal rate, regular rhythm Abdomen: normal bowel sounds, soft, non tender Genitourinary: normal external genitalia Extremities: no cyanosis Skin: no rash, no lesions Laboratory Tests 03/09/19 09:30: Sodium Level 133L, Potassium Level 4.3, Chloride Level 107, Carbon Dioxide Level 20L, Anion Gap 6, Blood Urea Nitrogen 6L, Creatinine 0.7, Estimat Glomerular Filtration Rate > 60, Glucose Level 90, Osmolality 277L, Uric Acid 6.9, Calcium Level 7.6L, Phosphorus Level 2.8, Magnesium Level 1.5L, Total Bilirubin 0.3, Aspartate Amino Transf (AST/SGOT) 22, Alanine Aminotransferase ( ALT/SGPT) 9L, Alkaline Phosphatase 59, Total Protein 5.9L, Albumin 1.7L, Globulin 4.2, Albumin/Globulin Ratio 0.4L Current Medications Medications (Trade) Dose Ordered Sig/Deborah Route PRN Reason Start Time Stop Time Status Last Admin Dose Admin Acetaminophen (Tylenol) 650 mg Q4H PRN ORAL Mild Pain/Temp > 100.5 03/06/19 08:15 04/01/19 08:14 Acetaminophen/ Hydrocodone Bitart ([place] 5/325) 1 tab Q4H PRN ORAL Moderate Pain (Pain Scale 4-6) 03/08/19 15:00 03/11/19 14:59 Cefepime HCl 1 gm/ Dextrose 55 ml @ 110 mls/hr EVERY 12 HOURS IVPB 03/06/19 09:00 03/15/19 23:59 03/09/19 08:01 Loperamide HCl (Imodium) 2 mg Q4H PRN ORAL Diarrhea 03/06/19 13:45 04/05/19 13:44 Metronidazole (Flagyl) 500 mg Q8HR ORAL 03/08/19 22:00 03/15/19 23:59 03/09/19 06:03 Morphine Sulfate (Morphine Sulfate) 2 mg Q4H PRN IVP Severe Pain (Pain Scale 7-10) 03/08/19 16:15 03/11/19 12:14 03/09/19 08:01 Ondansetron HCl (Zofran) 4 mg Q4H PRN IVP Nausea & Vomiting 03/06/19 08:15 04/01/19 08:14 Pantoprazole (Protonix) 40 mg DAILY ORAL 03/07/19 09:00 04/03/19 20:59 03/09/19 08:01 Tamsulosin HCl (Flomax) 0.4 mg BID ORAL 03/06/19 09:00 04/02/19 08:59 03/09/19 08:01 Trimethoprim/ Sulfamethoxazole (Bactrim-DS) 1 tab Q12HR ORAL 03/06/19 21:00 03/13/19 20:59 03/09/19 08:01 Rico Chavarria MD Mar 09, 2019 12:30
--- NOTE | 2019-03-09 13:29 | Nephrology Progress Note ---
Assessment/Plan Problem List: (1) Hyponatremia (2) HIV disease (3) Colitis (4) Sepsis (5) BPH (benign prostatic hyperplasia) Assessment HypoNatremia: Etiology? depletional Other Dx: sepsis ( leukocytosis, fever, lactic acidosis, evidence of infection) colitis elevated troponin r/o ACS vs demand ischemia tachycardia dehydration + HIV asymptomatic bacteriuria /? UTI with MRSA- hx of HTN COPD BPH sacral decub st 3 POA anemia severe hypo Mg , likely due to diarrhea Plan Mag IV 3% Saline as needed IV K supplement as needed Protonix monitor lytes per orders Subjective ROS Limited/Unobtainable: No Objective Objective Last 24 Hour Vital Signs Date Time Temp Pulse Resp B/P (MAP) Pulse Ox O2 Delivery O2 Flow Rate FiO2 03/09/19 12:00 97.9 87 16 119/70 (86) 98 03/09/19 09:00 Nasal Cannula 2.0 03/09/19 08:31 97.9 03/09/19 08:00 97.9 87 19 121/70 (87) 98 03/09/19 04:00 97.9 85 18 135/72 (93) 96 03/09/19 00:00 98.2 89 18 134/69 (90) 98 03/08/19 21:00 Nasal Cannula 2.0 03/08/19 20:00 98.1 92 20 140/80 (100) 96 03/08/19 16:00 97.2 95 20 129/74 (92) 97 Intake and Output 03/08/19 03/09/19 19:00 07:00 Intake Total 395 ml 55 ml Output Total 450 ml 550 ml Balance -55 ml -495 ml Intake Oral 240 ml IV Total 155 ml 55 ml Output Urine Total 450 ml 550 ml # Voids 2 1 # Bowel Movements 1 Laboratory Tests 03/09/19 09:30: Sodium Level 133L, Potassium Level 4.3, Chloride Level 107, Carbon Dioxide Level 20L, Anion Gap 6, Blood Urea Nitrogen 6L, Creatinine 0.7, Estimat Glomerular Filtration Rate > 60, Glucose Level 90, Osmolality 277L, Uric Acid 6.9, Calcium Level 7.6L, Phosphorus Level 2.8, Magnesium Level 1.5L, Total Bilirubin 0.3, Aspartate Amino Transf (AST/SGOT) 22, Alanine Aminotransferase ( ALT/SGPT) 9L, Alkaline Phosphatase 59, Total Protein 5.9L, Albumin 1.7L, Globulin 4.2, Albumin/Globulin Ratio 0.4L Height (Feet): 6 Height (Inches): 1.00 Weight (Pounds): 190 General Appearance: no apparent distress Objective no change Zander Razo MD Mar 09, 2019 13:29
--- NOTE | 2019-03-09 13:39 | Infectious Diseases Prog Note ---
Assessment/Plan Assessment/Plan 63yo man admitted with abdominal pain and diarrhea. Fever, SP Leukocytosis, improving Lactic acidosis, SP diarrhea/colitis, improving 03/02 CT: Suspected colitis with the thickening of the wall the colon. Correlate clinically. Thickening of the wall the urinary bladder. Correlate for cystitis. C diff negative stool cx negative stool o/p negative it appears pt had an episode of diarrhea/colitis back in January as well. Dx with UTI and given cipro. Then had C diff 02/15...pending record from [place] whether this was treated given recurrent diarrhea, recommend colonoscopy but pt refused. pt also has been refusing other care(ie/ PT, physical exams). will not answer questions about travel, diet or epidemiological risk factors saying "woman, you ask too many questions. leave me alone." Pt has history of diarrhea 02/08/19 and was hospitalized at [facility] and dx with IBD without flare 02/07 CT: pulm emphysema, atelectasis at lung bases, unchanged circumferential bladder wall thickening, nonspecific. diffuse thickening of the wall of hepatic flexure and ascending colon. indicate inflammatory bowel disease or ischemia. severe degenerative changes of hips. unlikely UTI UA pos UCx Staph, likely colonizer HIV Screen positive HIV-1 Abt positive. 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 CD4 180 RPR negative stool o/p negative CMV colitis unlikely given CD4 count discussed lab result with patient, he is in denial stating that he does not have HIV and that the hospital gave him HIV pt is not interested in starting medication at this time offered to provide more information including treatment options and prognosis but pt declined 1. COPD. 2. Hypertension. 3. BPH. 4. History of cocaine abuse in the past. 5. Bedbound. PLAN: continue cefepime and flagyl #8. Bactrim DS BID #4/10 for cyclospora and isospora. Vanc PO #1 pending OSH records monitor CBC, temp f/u bcx f/u repeat C diff Entamoeba, Giardia repeat stool o/p pt must follow up with PMD/HIV specialist once discharged Thank you, Dr. Martel, for allowing me to participate in the care of this patient. I will follow the patient with you during this admission. Subjective Allergies: Coded Allergies: No Known Allergies (Unverified , 11/15/19) Subjective Afebrile. One episode of watery stool today. Pt with poor appetite. Now denies abdominal pain. Denies fever, chills, cough, sob, dysuria, nausea, vomiting. Objective Vital Signs Last 24 Hour Vital Signs Date Time Temp Pulse Resp B/P (MAP) Pulse Ox O2 Delivery O2 Flow Rate FiO2 03/09/19 12:00 97.9 87 16 119/70 (86) 98 03/09/19 09:00 Nasal Cannula 2.0 03/09/19 08:31 97.9 03/09/19 08:00 97.9 87 19 121/70 (87) 98 03/09/19 04:00 97.9 85 18 135/72 (93) 96 03/09/19 00:00 98.2 89 18 134/69 (90) 98 03/08/19 21:00 Nasal Cannula 2.0 03/08/19 20:00 98.1 92 20 140/80 (100) 96 03/08/19 16:00 97.2 95 20 129/74 (92) 97 Height (Feet): 6 Height (Inches): 1.00 Weight (Pounds): 190 Objective HEENT: No pale conjunctivae. No icterus. NECK: No lymphadenopathy. CHEST: Coarse breathing sounds. HEART: S1 and S2. Abd: refused exam EXTREMITIES: No cellulitis or cyanosis. SKIN: Stage III decubitus in the sacral area Laboratory Tests Test 03/09/19 09:30 Sodium Level 133 MMOL/L (136-145) L Potassium Level 4.3 MMOL/L (3.5-5.1) Chloride Level 107 MMOL/L (98-107) Carbon Dioxide Level 20 MMOL/L (21-32) L Anion Gap 6 mmol/L (5-15) Blood Urea Nitrogen 6 mg/dL (7-18) L Creatinine 0.7 MG/DL (0.55-1.30) Estimat Glomerular Filtration Rate > 60 mL/min (>60) Glucose Level 90 MG/DL (74-106) Osmolality 277 mOsm/kg (297-317) L Uric Acid 6.9 MG/DL (2.6-7.2) Calcium Level 7.6 MG/DL (8.5-10.1) L Phosphorus Level 2.8 MG/DL (2.5-4.9) Magnesium Level 1.5 MG/DL (1.8-2.4) L Total Bilirubin 0.3 MG/DL (0.2-1.0) Aspartate Amino Transf (AST/SGOT) 22 U/L (15-37) Alanine Aminotransferase (ALT/SGPT) 9 U/L (12-78) L Alkaline Phosphatase 59 U/L (46-116) Total Protein 5.9 G/DL (6.4-8.2) L Albumin 1.7 G/DL (3.4-5.0) L Globulin 4.2 g/dL Albumin/Globulin Ratio 0.4 (1.0-2.7) L Current Medications Medications (Trade) Dose Ordered Sig/Deborah Route PRN Reason Start Time Stop Time Status Last Admin Dose Admin Acetaminophen (Tylenol) 650 mg Q4H PRN ORAL Mild Pain/Temp > 100.5 03/06/19 08:15 04/01/19 08:14 Acetaminophen/ Hydrocodone Bitart ([place] 5/325) 1 tab Q4H PRN ORAL Moderate Pain (Pain Scale 4-6) 03/08/19 15:00 03/11/19 14:59 Cefepime HCl 1 gm/ Dextrose 55 ml @ 110 mls/hr EVERY 12 HOURS IVPB 03/06/19 09:00 03/15/19 23:59 03/09/19 08:01 Diphenoxylate HCl/ Atropine (Lomotil) 2.5 mg Q4H PRN ORAL Diarrhea 03/09/19 12:30 04/08/19 12:29 Loperamide HCl (Imodium) 2 mg Q4H PRN ORAL Diarrhea 03/06/19 13:45 04/05/19 13:44 Magnesium Sulfate 100 ml @ 100 mls/hr Q1H IVPB 03/09/19 12:45 03/09/19 14:44 Magnesium Sulfate 100 ml @ 100 mls/hr Q1H IVPB 03/09/19 13:30 03/09/19 17:29 UNV Metronidazole (Flagyl) 500 mg Q8HR ORAL 03/08/19 22:00 03/15/19 23:59 03/09/19 06:03 Morphine Sulfate (Morphine Sulfate) 2 mg Q4H PRN IVP Severe Pain (Pain Scale 7-10) 03/08/19 16:15 03/11/19 12:14 03/09/19 08:01 Ondansetron HCl (Zofran) 4 mg Q4H PRN IVP Nausea & Vomiting 03/06/19 08:15 04/01/19 08:14 Pantoprazole (Protonix) 40 mg DAILY ORAL 03/07/19 09:00 04/03/19 20:59 03/09/19 08:01 Tamsulosin HCl (Flomax) 0.4 mg BID ORAL 03/06/19 09:00 04/02/19 08:59 03/09/19 08:01 Trimethoprim/ Sulfamethoxazole (Bactrim-DS) 1 tab Q12HR ORAL 03/06/19 21:00 03/13/19 20:59 03/09/19 08:01 Olegario Carroll MD Mar 09, 2019 13:38
[2019-03-09] MEDS: Loperamide 2mg cap ORAL PRN (13:48)
--- NOTE | 2019-03-09 15:26 | Surgery Progress Note ---
Surgery Progress Note Subjective Symptoms: improved, tolerating diet, voiding well, passing flatus, pain decreased Objective Last 24 Hour Vital Signs Date Time Temp Pulse Resp B/P (MAP) Pulse Ox O2 Delivery O2 Flow Rate FiO2 03/09/19 12:00 97.9 87 16 119/70 (86) 98 03/09/19 09:00 Nasal Cannula 2.0 03/09/19 08:31 97.9 03/09/19 08:00 97.9 87 19 121/70 (87) 98 03/09/19 04:00 97.9 85 18 135/72 (93) 96 03/09/19 00:00 98.2 89 18 134/69 (90) 98 03/08/19 21:00 Nasal Cannula 2.0 03/08/19 20:00 98.1 92 20 140/80 (100) 96 03/08/19 16:00 97.2 95 20 129/74 (92) 97 I&O Intake and Output 03/08/19 03/09/19 19:00 07:00 Intake Total 395 ml 55 ml Output Total 450 ml 550 ml Balance -55 ml -495 ml Intake Oral 240 ml IV Total 155 ml 55 ml Output Urine Total 450 ml 550 ml # Voids 2 1 # Bowel Movements 1 Cardiovascular: RSR Respiratory: clear Abdomen: soft, flat, non-tender, present bowel sounds, non-distended Extremities: no edema, no tenderness, no cyanosis Laboratory Tests Test 03/09/19 09:30 Sodium Level 133 MMOL/L (136-145) L Potassium Level 4.3 MMOL/L (3.5-5.1) Chloride Level 107 MMOL/L (98-107) Carbon Dioxide Level 20 MMOL/L (21-32) L Anion Gap 6 mmol/L (5-15) Blood Urea Nitrogen 6 mg/dL (7-18) L Creatinine 0.7 MG/DL (0.55-1.30) Estimat Glomerular Filtration Rate > 60 mL/min (>60) Glucose Level 90 MG/DL (74-106) Osmolality 277 mOsm/kg (297-317) L Uric Acid 6.9 MG/DL (2.6-7.2) Calcium Level 7.6 MG/DL (8.5-10.1) L Phosphorus Level 2.8 MG/DL (2.5-4.9) Magnesium Level 1.5 MG/DL (1.8-2.4) L Total Bilirubin 0.3 MG/DL (0.2-1.0) Aspartate Amino Transf (AST/SGOT) 22 U/L (15-37) Alanine Aminotransferase (ALT/SGPT) 9 U/L (12-78) L Alkaline Phosphatase 59 U/L (46-116) Total Protein 5.9 G/DL (6.4-8.2) L Albumin 1.7 G/DL (3.4-5.0) L Globulin 4.2 g/dL Albumin/Globulin Ratio 0.4 (1.0-2.7) L Plan Problems: (1) Decubitus skin ulcer Assessment & Plan: Pt presented on admission with multiple pressure injuries. Blood blisters to ezequiel R tibia and medial L tibia. Full Thickness stage 3 pressure injury Sacrum . Base of wound 60% biofilm,40% viable. Edges are macerated bordered by black and fluctuant base with additional wounds at R sacrum. No odor or exudate noted. Pt complained of pain at site when in supine. Rigidity noted to both lower extremities and pt heels are in continuously in contact. DTPI noted to medial R heel . Base of wound with purple with maroon borders and fluctuant at base (L)4cm x (W)4cm .Periwound R heel is boggy but blanchable. DTPI medial L heel . Base of wound is maroon with scattered purple areas and is fluctuant at base. Periwound L heel is boggy but blanchable. Tx.Plan: Cleanse Sacral wound with Saline. Apply Therahoney. Apply Moisture Barrier periwound. Cover with Optifoam drsg every 3 days and prn. Apply Cavilon Skin Barrier to blood blisters R and L tibia. Cover each wound with Optifoam drsg. Change every 7 days and prn. Apply Cavilon Skin Barrier to both heels. Cover each heel with Optifoam drsg. Change every 7 days and prn. APM/KRISTI Mattress overlay. Reposition at least every 2hours or as tolerated. Place pillow between lower ext to keep Heels apart. Off-load heels with pillow. (2) Colitis Assessment & Plan: Findings: Significant artifact limits evaluation. The lung bases notable for posterior basal atelectasis. Patchy groundglass opacities also noted nonspecific. Trace pericardial fluid demonstrated. No obvious hydronephrosis or stones identified. No obvious free fluid identified. Question of gallstones. Aortoiliac calcifications are present. There is thickening of the wall of the colon especially noted on the right side involving the ascending colon and cecum. Findings suspicious for colitis. Correlate clinically. There is thickening of the wall the urinary bladder. 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 Anasarca noted. IMPRESSION: Limited evaluation due to technical artifacts. Suspected colitis with the thickening of the wall the colon. Correlate clinically. Thickening of the wall the urinary bladder. Correlate for cystitis. -Seen by GI and recommended to have Colonoscopy but declined -KUB noted and okay exam improved no n/v/f/c -Zofran prn will follow up with recs (3) Sepsis Assessment & Plan: febrile t max 104 - resolved leukocytosis - improving lactic acidosis - resolved exam improved CT with colitis likely etiology of sepsis cultures noted ABX as per ID OB stool negative C. difficile negative stool culture negative KUB reviewed - No definite acute process. Nonspecific bowel gas pattern. - Markedly abnormal bilateral hips as described. Could represent sequelae of process such as old bilateral avascular necrosis with resultant secondary degenerative change, lung other possibilities improving will follow with exam and recs okay for diet (4) Nausea vomiting and diarrhea César Romero Mar 09, 2019 15:26
[2019-03-09 16:00] VITALS: BP 123/71
[2019-03-09] MEDS: Vancomycin oral 125mg/2.5ml ORAL SCH ×3 (17:09→21:08)
--- NOTE | 2019-03-09 17:41 | NUR ---
NURSE NOTES: pt refused tamsulosin and vanco x3 attempts and explained risks and benefits, meds wasted in med room.
--- NOTE | 2019-03-09 19:31 | NUR ---
HAND-OFF: Report given to RN SIRENA. Pt is awake and stable.
--- NOTE | 2019-03-09 19:36 | NUR ---
NURSE NOTES: RECEIVED PATIENT FROM ANJEL CARRANZA. PT IS AWAKE, AAOX4, ON NC 2L. NO ACUTE RESPIRATORY DISTRESS NOTED. PT C/O 10/10 GENERALIZED PAIN. WILL FOLLOW UP WITH PRN MORPHINE. DRESSINGS ON SACRAL, BILATERAL LEGS AND HEELS ARE INTACT AND DRY. IV ON RIGHT HAND 24G IS INTACT AND PATENT. BED IS LOCKED AND LOW, BED ALARMS ACTIVE, SIDE RAILS UP X2 AND CALL LIGHT IS WITHIN REACH. WILL CONTINUE TO MONITOR.
[2019-03-09 20:00] VITALS: BP 118/65
--- NOTE | 2019-03-09 22:36 | Internal Med Progress Note ---
Subjective Physician Name Oscar Martel Attending Physician Oscar Martel MD Current Medications Medications (Trade) Dose Ordered Sig/Deborah Route PRN Reason Start Time Stop Time Status Last Admin Dose Admin Acetaminophen (Tylenol) 650 mg Q4H PRN ORAL Mild Pain/Temp > 100.5 03/06/19 08:15 04/01/19 08:14 Acetaminophen/ Hydrocodone Bitart ([place] 5/325) 1 tab Q4H PRN ORAL Moderate Pain (Pain Scale 4-6) 03/08/19 15:00 03/11/19 14:59 Cefepime HCl 1 gm/ Dextrose 55 ml @ 110 mls/hr EVERY 12 HOURS IVPB 03/06/19 09:00 03/15/19 23:59 03/09/19 21:08 Diphenoxylate HCl/ Atropine (Lomotil) 2.5 mg Q4H PRN ORAL Diarrhea 03/09/19 12:30 04/08/19 12:29 Loperamide HCl (Imodium) 2 mg Q4H PRN ORAL Diarrhea 03/06/19 13:45 04/05/19 13:44 03/09/19 13:48 Metronidazole (Flagyl) 500 mg Q8HR ORAL 03/08/19 22:00 03/15/19 23:59 03/09/19 21:08 Morphine Sulfate (Morphine Sulfate) 2 mg Q4H PRN IVP Severe Pain (Pain Scale 7-10) 03/08/19 16:15 03/11/19 12:14 03/09/19 20:01 Ondansetron HCl (Zofran) 4 mg Q4H PRN IVP Nausea & Vomiting 03/06/19 08:15 04/01/19 08:14 Pantoprazole (Protonix) 40 mg DAILY ORAL 03/07/19 09:00 04/03/19 20:59 03/09/19 08:01 Tamsulosin HCl (Flomax) 0.4 mg BID ORAL 03/06/19 09:00 04/02/19 08:59 03/09/19 08:01 Trimethoprim/ Sulfamethoxazole (Bactrim-DS) 1 tab Q12HR ORAL 03/06/19 21:00 03/13/19 20:59 03/09/19 21:08 Vancomycin HCl (Firvanq) 125 mg FOUR TIMES A DAY ORAL 03/09/19 18:00 03/16/19 17:59 03/09/19 21:08 Allergies: Coded Allergies: No Known Allergies (Unverified , 03/02/19) Subjective Awake, alert, responsive, complain about poor appetite. + Diarrhea. Objective Last Vital Signs Date Time Temp Pulse Resp B/P (MAP) Pulse Ox O2 Delivery O2 Flow Rate FiO2 03/09/19 16:00 98.1 85 18 123/71 (88) 97 03/09/19 09:00 Nasal Cannula 2.0 Laboratory Tests Test 03/09/19 09:30 Sodium Level 133 MMOL/L (136-145) L Potassium Level 4.3 MMOL/L (3.5-5.1) Chloride Level 107 MMOL/L (98-107) Carbon Dioxide Level 20 MMOL/L (21-32) L Anion Gap 6 mmol/L (5-15) Blood Urea Nitrogen 6 mg/dL (7-18) L Creatinine 0.7 MG/DL (0.55-1.30) Estimat Glomerular Filtration Rate > 60 mL/min (>60) Glucose Level 90 MG/DL (74-106) Osmolality 277 mOsm/kg (297-317) L Uric Acid 6.9 MG/DL (2.6-7.2) Calcium Level 7.6 MG/DL (8.5-10.1) L Phosphorus Level 2.8 MG/DL (2.5-4.9) Magnesium Level 1.5 MG/DL (1.8-2.4) L Total Bilirubin 0.3 MG/DL (0.2-1.0) Aspartate Amino Transf (AST/SGOT) 22 U/L (15-37) Alanine Aminotransferase (ALT/SGPT) 9 U/L (12-78) L Alkaline Phosphatase 59 U/L (46-116) Total Protein 5.9 G/DL (6.4-8.2) L Albumin 1.7 G/DL (3.4-5.0) L Globulin 4.2 g/dL Albumin/Globulin Ratio 0.4 (1.0-2.7) L Intake and Output 03/08/19 03/09/19 19:00 07:00 Intake Total 395 ml 55 ml Output Total 450 ml 550 ml Balance -55 ml -495 ml Intake Oral 240 ml IV Total 155 ml 55 ml Output Urine Total 450 ml 550 ml # Voids 2 1 # Bowel Movements 1 Objective GENERAL: The patient is awake, responsive, no acute distress, but chronically cachectic and malnutrition. HEAD AND NECK: Pupils are equal and reactive to light. Extraocular movements intact. NECK: Supple. No JVD. LUNGS: Good air entry. No wheezing or rales. Decreased air in bases. HEART: S1 and S2. Distant heart sounds. No murmur or gallops. ABDOMEN: Soft, mildly distended. No rebound tenderness. Generalized tenderness. RECTAL: Refused and deferred. GENITOURINARY: Refused and deferred. PSYCHIATRIC: Mood and affect intact. Gait was not assessed due to the patient' s status. SKIN: Full thickness stage III pressure ulcer in the sacrum was noted presented on admission. NEUROLOGIC: Cranial nerves II through XII grossly intact. The patient moving all extremities. Lower extremities weaker than upper extremity and tender to touch in the lower extremity. Assessment/Plan Assessment/Plan ASSESSMENT: 1. Mild elevation of troponin most likely demand ischemia. 2. Severe dehydration with hypovolemia. 3. Anemia most likely secondary to the intra-abdominal infection. 4. Colitis. 5. BPH. 6. Hypertension presently hypotensive. 7. COPD. 8. Hyponatremia. 9. Pressure ulcer stage III sacrum present on admission. 10. Acute urinary tract infection. PLAN: Abx: cefepime, Bactrim, and Vanco PO. Dr. Chavarria from Pulmonary Critical Care Dr. Romero from General surgery. Monitor laboratory as well as cultures. Code status Full code. DVT prophylaxis with heparin subcutaneous. Followup with wound care of the sacral ulcer. Oscar Martel MD Mar 09, 2019 22:36
[2019-03-10] VITALS: BP 135/80
[2019-03-10 04:00] VITALS: BP 128/75
[2019-03-10] MEDS: metroNIDAZOLE 500mg tab ORAL SCH ×3 (05:26→22:12)
--- NOTE | 2019-03-10 05:30 | NUR ---
NURSE NOTES: Gave pt morning medication, prepared to change pt dressings and he stated he doesn't want it done right now he wants to sleep and hasn't pooped, offered to change the dressings on bilateral heels and he doesn't want it done.
--- NOTE | 2019-03-10 06:20 | General Progress Note ---
Assessment/Plan Status: unchanged Assessment/Plan: Assessment/Plan Problems: (1) Diarrhea ICD Codes: R19.7 - Diarrhea, unspecified SNOMED: [id number] (2) Colitis (3) HIV Assessment/Plan This is a 63-year-old male patient who presents to the emergency room with abdominal pain and complaint of diarrhea secondary to suspected colitis seen on CT scan. OB stool negative C. difficile negative stool culture negative KUB reviewed - No definite acute process. Nonspecific bowel gas pattern. - Markedly abnormal bilateral hips as described. Could represent sequelae of process such as old bilateral avascular necrosis with resultant secondary degenerative change, lung other possibilities patient refused colonoscopy hold stool softeners and laxatives Imodium prn, Lomotil for persistent diarrhea abx per ID PPI IV and p.o. hydration plus electrolyte correction Zofran as needed Pain management Outpatient colonoscopy if patient agrees Subjective Allergies: Coded Allergies: No Known Allergies (Unverified , 03/02/19) Objective Last 24 Hour Vital Signs Date Time Temp Pulse Resp B/P (MAP) Pulse Ox O2 Delivery O2 Flow Rate FiO2 03/10/19 04:00 97.8 90 19 128/75 (92) 96 03/10/19 00:00 98.8 91 19 135/80 (98) 99 03/09/19 21:00 Nasal Cannula 2.0 03/09/19 20:00 98.0 95 19 118/65 (82) 96 03/09/19 16:00 98.1 85 18 123/71 (88) 97 03/09/19 12:00 97.9 87 16 119/70 (86) 98 03/09/19 09:00 Nasal Cannula 2.0 03/09/19 08:31 97.9 03/09/19 08:00 97.9 87 19 121/70 (87) 98 Intake and Output 03/09/19 03/10/19 18:59 06:59 Intake Total 1255 ml Output Total 800 ml Balance 455 ml Intake Oral 800 ml IV Total 455 ml Output Urine Total 800 ml Laboratory Tests 03/09/19 09:30: Sodium Level 133L, Potassium Level 4.3, Chloride Level 107, Carbon Dioxide Level 20L, Anion Gap 6, Blood Urea Nitrogen 6L, Creatinine 0.7, Estimat Glomerular Filtration Rate > 60, Glucose Level 90, Osmolality 277L, Uric Acid 6.9, Calcium Level 7.6L, Phosphorus Level 2.8, Magnesium Level 1.5L, Total Bilirubin 0.3, Aspartate Amino Transf (AST/SGOT) 22, Alanine Aminotransferase ( ALT/SGPT) 9L, Alkaline Phosphatase 59, Total Protein 5.9L, Albumin 1.7L, Globulin 4.2, Albumin/Globulin Ratio 0.4L Height (Feet): 6 Height (Inches): 1.00 Weight (Pounds): 190 General Appearance: alert EENT: PERRL/EOMI Neck: supple Cardiovascular: normal rate Respiratory/Chest: chest wall non-tender Abdomen: normal bowel sounds, non tender, soft Extremities: non-tender Mansoor Interiano MD Mar 10, 2019 06:20
--- NOTE | 2019-03-10 07:20 | NUR ---
HAND-OFF: Report given to ANJEL Joy.
--- NOTE | 2019-03-10 07:30 | NUR ---
nurse notes received patient resting comfortably in bed, patient awake, alert, oriented x4, no sign of distress, HL patent, Elevated BLE in 2 pillows, on fall and aspiration precaution, encouraged to turn q2h for comfort and good circulation,plan of care , was discussed verbalized understanding, 4P's in progress call light w/n reach, will continue to monitor patient condition michelle diaz
[2019-03-10 07:32] LABS: BASOPHILS % (AUTO) 0.7 % (0.0-2.0); EOSINOPHILS % (AUTO) 5.1 % (0.0-3.0); HEMATOCRIT 28.5 % (42.0-52.0); HEMOGLOBIN 9.6 G/DL (14.2-18.0); LYMPHOCYTES % (AUTO) 24.3 % (20.0-45.0); MEAN CORPUSCULAR VOLUME 82 FL (80-99); MONOCYTES % (AUTO) 9.5 % (1.0-10.0); NEUTROPHILS % (AUTO) 60.4 % (45.0-75.0); PLATELET COUNT 324 K/UL (150-450); RED BLOOD COUNT 3.48 M/UL (4.70-6.10); RED CELL DISTRIBUTION WIDTH 16.4 % (11.6-14.8); WHITE BLOOD COUNT 16.6 K/UL (4.8-10.8)
[2019-03-10 07:58] LABS: ALANINE AMINOTRANSFERASE 6 U/L (12-78); ALBUMIN 1.9 G/DL (3.4-5.0); ALBUMIN/GLOBULIN RATIO 0.4 (1.0-2.7); ALKALINE PHOSPHATASE 64 U/L (46-116); ANION GAP 10 mmol/L (5-15); ASPARTATE AMINO TRANSFERASE 23 U/L (15-37); BILIRUBIN,TOTAL 0.4 MG/DL (0.2-1.0); BLOOD UREA NITROGEN 5 mg/dL (7-18); CALCIUM 7.8 MG/DL (8.5-10.1); CARBON DIOXIDE 17 MMOL/L (21-32); CHLORIDE 106 MMOL/L (98-107); CREATININE 0.7 MG/DL (0.55-1.30); PHOSPHORUS 2.8 MG/DL (2.5-4.9); POTASSIUM 4.4 MMOL/L (3.5-5.1); SODIUM 133 MMOL/L (136-145)
[2019-03-10 08:05] VITALS: BP 123/71
[2019-03-10] MEDS: Vancomycin oral 125mg/2.5ml ORAL SCH ×4 (08:46→22:12)
[2019-03-10] MEDS: Tamsulosin 0.4mg cap ORAL SCH ×2 (08:46→17:11)
[2019-03-10] MEDS: Cefepime HCl 1 GM in D5W 55 ML IVPB SCH ×2 (08:47→22:12)
[2019-03-10] MEDS: Morphine Sulfate 2mg/ml Inj(IV/IM USE ONLY) IVP PRN (09:00)
[2019-03-10] MEDS: Bactrim-DS 1 tab ORAL SCH ×2 (09:00→22:12)
--- NOTE | 2019-03-10 09:00 | NUR ---
nurse notes refused to be turned, refused skin assessment at his sacral/back, offerred pain med , took the IV pain med, but still refused skin assessment, charge nurse OLLIE aware he refused bactrim po antibiotic michelle diaz
[2019-03-10] MEDS ORDERED: Tubing IV Secondary IV ONE (10:04)
[2019-03-10] MEDS ORDERED: NS 275ml ONE (10:04)
[2019-03-10 12:00] VITALS: BP 119/83
--- NOTE | 2019-03-10 12:48 | Surgery Progress Note ---
Surgery Progress Note Subjective Additional Comments Patient seen and examined bedside. No acute events. Leukocytosis 16k today is elevated Patient states he is feeling better. Denies any pain. States he is comfortable. States he is having bowel movements and the becoming more formed. Repeat C. difficile is again negative Objective Last 24 Hour Vital Signs Date Time Temp Pulse Resp B/P (MAP) Pulse Ox O2 Delivery O2 Flow Rate FiO2 03/10/19 12:00 97.5 96 18 119/83 (95) 95 03/10/19 08:35 Nasal Cannula 2.0 03/10/19 08:05 97.5 87 18 123/71 (88) 96 03/10/19 04:00 97.8 90 19 128/75 (92) 96 03/10/19 00:00 98.8 91 19 135/80 (98) 99 03/09/19 21:00 Nasal Cannula 2.0 03/09/19 20:00 98.0 95 19 118/65 (82) 96 03/09/19 16:00 98.1 85 18 123/71 (88) 97 I&O Intake and Output 03/09/19 03/10/19 19:00 07:00 Intake Total 1255 ml 800 ml Output Total 800 ml 800 ml Balance 455 ml 0 ml Intake Oral 800 ml 800 ml IV Total 455 ml Output Urine Total 800 ml 800 ml # Voids 1 # Bowel Movements 1 Dressing: other Wound: other Drains: other Cardiovascular: RSR Respiratory: decreased breath sounds Abdomen: soft, present bowel sounds, non-distended Extremities: no cyanosis, other Laboratory Tests Test 03/10/19 07:00 White Blood Count 16.6 K/UL (4.8-10.8) H Red Blood Count 3.48 M/UL (4.70-6.10) L Hemoglobin 9.6 G/DL (14.2-18.0) L Hematocrit 28.5 % (42.0-52.0) L Mean Corpuscular Volume 82 FL (80-99) Mean Corpuscular Hemoglobin 27.5 PG (27.0-31.0) Mean Corpuscular Hemoglobin Concent 33.6 G/DL (32.0-36.0) Red Cell Distribution Width 16.4 % (11.6-14.8) H Platelet Count 324 K/UL (150-450) Mean Platelet Volume 6.4 FL (6.5-10.1) L Neutrophils (%) (Auto) 60.4 % (45.0-75.0) Lymphocytes (%) (Auto) 24.3 % (20.0-45.0) Monocytes (%) (Auto) 9.5 % (1.0-10.0) Eosinophils (%) (Auto) 5.1 % (0.0-3.0) H Basophils (%) (Auto) 0.7 % (0.0-2.0) Sodium Level 133 MMOL/L (136-145) L Potassium Level 4.4 MMOL/L (3.5-5.1) Chloride Level 106 MMOL/L (98-107) Carbon Dioxide Level 17 MMOL/L (21-32) L Anion Gap 10 mmol/L (5-15) Blood Urea Nitrogen 5 mg/dL (7-18) L Creatinine 0.7 MG/DL (0.55-1.30) Estimat Glomerular Filtration Rate > 60 mL/min (>60) Glucose Level 90 MG/DL (74-106) Uric Acid 6.3 MG/DL (2.6-7.2) Calcium Level 7.8 MG/DL (8.5-10.1) L Phosphorus Level 2.8 MG/DL (2.5-4.9) Total Bilirubin 0.4 MG/DL (0.2-1.0) Aspartate Amino Transf (AST/SGOT) 23 U/L (15-37) Alanine Aminotransferase (ALT/SGPT) 6 U/L (12-78) L Alkaline Phosphatase 64 U/L (46-116) C-Reactive Protein, Quantitative 2.5 mg/dL (0.00-0.90) H Total Protein 6.5 G/DL (6.4-8.2) Albumin 1.9 G/DL (3.4-5.0) L Globulin 4.6 g/dL Albumin/Globulin Ratio 0.4 (1.0-2.7) L Plan Problems: (1) Decubitus skin ulcer Assessment & Plan: Pt presented on admission with multiple pressure injuries. Blood blisters to ezequiel R tibia and medial L tibia. Full Thickness stage 3 pressure injury Sacrum . Base of wound 60% biofilm,40% viable. Edges are macerated bordered by black and fluctuant base with additional wounds at R sacrum. No odor or exudate noted. Pt complained of pain at site when in supine. Rigidity noted to both lower extremities and pt heels are in continuously in contact. DTPI noted to medial R heel . Base of wound with purple with maroon borders and fluctuant at base (L)4cm x (W)4cm .Periwound R heel is boggy but blanchable. DTPI medial L heel . Base of wound is maroon with scattered purple areas and is fluctuant at base. Periwound L heel is boggy but blanchable. Tx.Plan: Cleanse Sacral wound with Saline. Apply Therahoney. Apply Moisture Barrier periwound. Cover with Optifoam drsg every 3 days and prn. Apply Cavilon Skin Barrier to blood blisters R and L tibia. Cover each wound with Optifoam drsg. Change every 7 days and prn. Apply Cavilon Skin Barrier to both heels. Cover each heel with Optifoam drsg. Change every 7 days and prn. APM/KRISTI Mattress overlay. Reposition at least every 2hours or as tolerated. Place pillow between lower ext to keep Heels apart. Off-load heels with pillow. (2) Colitis Assessment & Plan: Findings: Significant artifact limits evaluation. The lung bases notable for posterior basal atelectasis. Patchy groundglass opacities also noted nonspecific. Trace pericardial fluid demonstrated. No obvious hydronephrosis or stones identified. No obvious free fluid identified. Question of gallstones. Aortoiliac calcifications are present. There is thickening of the wall of the colon especially noted on the right side involving the ascending colon and cecum. Findings suspicious for colitis. Correlate clinically. There is thickening of the wall the urinary bladder. 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 Anasarca noted. IMPRESSION: Limited evaluation due to technical artifacts. Suspected colitis with the thickening of the wall the colon. Correlate clinically. Thickening of the wall the urinary bladder. Correlate for cystitis. -Seen by GI and recommended to have Colonoscopy but declined -KUB noted and okay exam improved no n/v/f/c -Zofran prn will follow up with recs (3) Sepsis Assessment & Plan: febrile t max 104 - resolved leukocytosis lactic acidosis - resolved exam improved CT with colitis likely etiology of sepsis cultures noted ABX as per ID OB stool negative C. difficile negative and repeat C. difficile negative stool culture negative KUB reviewed - No definite acute process. Nonspecific bowel gas pattern. - Markedly abnormal bilateral hips as described. Could represent sequelae of process such as old bilateral avascular necrosis with resultant secondary degenerative change, lung other possibilities improving Imaging labs ordered Still pending work-up of etiology leukocytosis though patient clinically improving will follow with exam and recs okay for diet (4) Nausea vomiting and diarrhea César Romero Mar 10, 2019 12:48
--- NOTE | 2019-03-10 13:29 | Pulmonology Progress Note ---
Assessment/Plan Problems: (1) Sepsis (2) COPD (chronic obstructive pulmonary disease) (3) Nausea vomiting and diarrhea (4) HCAP (healthcare-associated pneumonia) (5) BPH (benign prostatic hyperplasia) (6) Hypertension (7) HIV disease (8) COPD exacerbation Assessment/Plan wbc still elevated and rising HIV result noted, CD4 180 respiratory treatment on Cefepime and flagyl and bacrim hemodynamically stable stool for Cdiff was negative 6 days ago, repeat again on vanco PO titrate fio2 to sat of 92% med/surg pt/ot Subjective Allergies: Coded Allergies: No Known Allergies (Unverified , 03/02/19) Objective Last 24 Hour Vital Signs Date Time Temp Pulse Resp B/P (MAP) Pulse Ox O2 Delivery O2 Flow Rate FiO2 03/10/19 12:00 97.5 96 18 119/83 (95) 95 03/10/19 08:35 Nasal Cannula 2.0 03/10/19 08:05 97.5 87 18 123/71 (88) 96 03/10/19 04:00 97.8 90 19 128/75 (92) 96 03/10/19 00:00 98.8 91 19 135/80 (98) 99 03/09/19 21:00 Nasal Cannula 2.0 03/09/19 20:00 98.0 95 19 118/65 (82) 96 03/09/19 16:00 98.1 85 18 123/71 (88) 97 Intake and Output 03/09/19 03/10/19 19:00 07:00 Intake Total 1255 ml 800 ml Output Total 800 ml 800 ml Balance 455 ml 0 ml Intake Oral 800 ml 800 ml IV Total 455 ml Output Urine Total 800 ml 800 ml # Voids 1 # Bowel Movements 1 Objective General Appearance: cachetic HEENT: normocephalic, atraumatic Respiratory/Chest: chest wall non-tender, normal breath sounds Cardiovascular: normal rate, regular rhythm Abdomen: normal bowel sounds, soft, non tender Genitourinary: normal external genitalia Extremities: no cyanosis Skin: no rash, no lesions Microbiology Date/Time Source Procedure Growth Status 03/09/19 16:00 Stool Clostridium difficile Toxin Assay - Final Complete Laboratory Tests 03/10/19 07:00: White Blood Count 16.6H, Red Blood Count 3.48L, Hemoglobin 9.6L, Hematocrit 28.5L, Mean Corpuscular Volume 82, Mean Corpuscular Hemoglobin 27.5, Mean Corpuscular Hemoglobin Concent 33.6, Red Cell Distribution Width 16.4H, Platelet Count 324, Mean Platelet Volume 6.4L, Neutrophils (%) (Auto) 60.4, Lymphocytes (%) (Auto) 24.3, Monocytes (%) (Auto) 9.5, Eosinophils (%) (Auto) 5.1H, Basophils (%) (Auto) 0.7, Sodium Level 133L, Potassium Level 4.4, Chloride Level 106, Carbon Dioxide Level 17L, Anion Gap 10, Blood Urea Nitrogen 5L, Creatinine 0.7, Estimat Glomerular Filtration Rate > 60, Glucose Level 90, Uric Acid 6.3, Calcium Level 7.8L, Phosphorus Level 2.8, Total Bilirubin 0.4, Aspartate Amino Transf (AST/SGOT) 23, Alanine Aminotransferase (ALT/SGPT) 6L, Alkaline Phosphatase 64, C-Reactive Protein, Quantitative 2.5H, Total Protein 6.5, Albumin 1.9L, Globulin 4.6, Albumin/Globulin Ratio 0.4L Current Medications Medications (Trade) Dose Ordered Sig/Deborah Route PRN Reason Start Time Stop Time Status Last Admin Dose Admin Acetaminophen (Tylenol) 650 mg Q4H PRN ORAL Mild Pain/Temp > 100.5 03/06/19 08:15 04/01/19 08:14 Acetaminophen/ Hydrocodone Bitart ([place] 5/325) 1 tab Q4H PRN ORAL Moderate Pain (Pain Scale 4-6) 03/08/19 15:00 03/11/19 14:59 Cefepime HCl 1 gm/ Dextrose 55 ml @ 110 mls/hr EVERY 12 HOURS IVPB 03/06/19 09:00 03/15/19 23:59 03/10/19 08:47 Diphenoxylate HCl/ Atropine (Lomotil) 2.5 mg Q4H PRN ORAL Diarrhea 03/09/19 12:30 04/08/19 12:29 Loperamide HCl (Imodium) 2 mg Q4H PRN ORAL Diarrhea 03/06/19 13:45 04/05/19 13:44 03/09/19 13:48 Metronidazole (Flagyl) 500 mg Q8HR ORAL 03/08/19 22:00 03/15/19 23:59 03/10/19 13:15 Morphine Sulfate (Morphine Sulfate) 2 mg Q4H PRN IVP Severe Pain (Pain Scale 7-10) 03/08/19 16:15 03/11/19 12:14 03/10/19 09:00 Ondansetron HCl (Zofran) 4 mg Q4H PRN IVP Nausea & Vomiting 03/06/19 08:15 04/01/19 08:14 Pantoprazole (Protonix) 40 mg DAILY ORAL 03/07/19 09:00 04/03/19 20:59 03/09/19 08:01 Tamsulosin HCl (Flomax) 0.4 mg BID ORAL 03/06/19 09:00 04/02/19 08:59 03/10/19 08:46 Trimethoprim/ Sulfamethoxazole (Bactrim-DS) 1 tab Q12HR ORAL 03/06/19 21:00 03/13/19 20:59 03/09/19 21:08 Vancomycin HCl (Firvanq) 125 mg FOUR TIMES A DAY ORAL 03/09/19 18:00 03/16/19 17:59 03/10/19 12:19 Rico Chavarria MD Mar 10, 2019 13:29
[2019-03-10] MEDS ORDERED: Gastrograffin 30ml ORAL PRN (13:30)
[2019-03-10] MEDS ORDERED: Omnipaque-300 100ml vial INJ PRN (13:30)
--- NOTE | 2019-03-10 13:59 | Internal Med Progress Note ---
Subjective Physician Name Oscar Martel Attending Physician Oscar Martel MD Current Medications Medications (Trade) Dose Ordered Sig/Deborah Route PRN Reason Start Time Stop Time Status Last Admin Dose Admin Acetaminophen (Tylenol) 650 mg Q4H PRN ORAL Mild Pain/Temp > 100.5 03/06/19 08:15 04/01/19 08:14 Acetaminophen/ Hydrocodone Bitart ([place] 5/325) 1 tab Q4H PRN ORAL Moderate Pain (Pain Scale 4-6) 03/08/19 15:00 03/11/19 14:59 Barium Sulfate (Readi-Cat 2) 450 ml NOW PRN ORAL Radiology Procedure 03/10/19 13:30 03/12/19 13:30 Cefepime HCl 1 gm/ Dextrose 55 ml @ 110 mls/hr EVERY 12 HOURS IVPB 03/06/19 09:00 03/15/19 23:59 03/10/19 08:47 Diatrizoate Meglum/ Diatrizoate Sod (Gastrografin) 30 ml NOW PRN ORAL Radiology Procedure 03/10/19 13:30 03/12/19 13:29 Diphenoxylate HCl/ Atropine (Lomotil) 2.5 mg Q4H PRN ORAL Diarrhea 03/09/19 12:30 04/08/19 12:29 Iohexol (OMNIPAQUE-300 100ml) 100 ml NOW PRN INJ Radiology Procedure 03/10/19 13:30 03/12/19 13:30 Loperamide HCl (Imodium) 2 mg Q4H PRN ORAL Diarrhea 03/06/19 13:45 04/05/19 13:44 03/09/19 13:48 Metronidazole (Flagyl) 500 mg Q8HR ORAL 03/08/19 22:00 03/15/19 23:59 03/10/19 13:15 Morphine Sulfate (Morphine Sulfate) 2 mg Q4H PRN IVP Severe Pain (Pain Scale 7-10) 03/08/19 16:15 03/11/19 12:14 03/10/19 09:00 Ondansetron HCl (Zofran) 4 mg Q4H PRN IVP Nausea & Vomiting 03/06/19 08:15 04/01/19 08:14 Pantoprazole (Protonix) 40 mg DAILY ORAL 03/07/19 09:00 04/03/19 20:59 03/09/19 08:01 Tamsulosin HCl (Flomax) 0.4 mg BID ORAL 03/06/19 09:00 04/02/19 08:59 03/10/19 08:46 Trimethoprim/ Sulfamethoxazole (Bactrim-DS) 1 tab Q12HR ORAL 03/06/19 21:00 03/13/19 20:59 03/09/19 21:08 Vancomycin HCl (Firvanq) 125 mg FOUR TIMES A DAY ORAL 03/09/19 18:00 03/16/19 17:59 03/10/19 12:19 Allergies: Coded Allergies: No Known Allergies (Unverified , 03/02/19) Subjective Awake, alert, responsive, complain about poor appetite. Less Diarrhea, WBC: 16.6. Objective Last Vital Signs Date Time Temp Pulse Resp B/P (MAP) Pulse Ox O2 Delivery O2 Flow Rate FiO2 03/10/19 12:00 97.5 96 18 119/83 (95) 95 03/10/19 08:35 Nasal Cannula 2.0 Laboratory Tests Test 03/10/19 07:00 White Blood Count 16.6 K/UL (4.8-10.8) H Red Blood Count 3.48 M/UL (4.70-6.10) L Hemoglobin 9.6 G/DL (14.2-18.0) L Hematocrit 28.5 % (42.0-52.0) L Mean Corpuscular Volume 82 FL (80-99) Mean Corpuscular Hemoglobin 27.5 PG (27.0-31.0) Mean Corpuscular Hemoglobin Concent 33.6 G/DL (32.0-36.0) Red Cell Distribution Width 16.4 % (11.6-14.8) H Platelet Count 324 K/UL (150-450) Mean Platelet Volume 6.4 FL (6.5-10.1) L Neutrophils (%) (Auto) 60.4 % (45.0-75.0) Lymphocytes (%) (Auto) 24.3 % (20.0-45.0) Monocytes (%) (Auto) 9.5 % (1.0-10.0) Eosinophils (%) (Auto) 5.1 % (0.0-3.0) H Basophils (%) (Auto) 0.7 % (0.0-2.0) Sodium Level 133 MMOL/L (136-145) L Potassium Level 4.4 MMOL/L (3.5-5.1) Chloride Level 106 MMOL/L (98-107) Carbon Dioxide Level 17 MMOL/L (21-32) L Anion Gap 10 mmol/L (5-15) Blood Urea Nitrogen 5 mg/dL (7-18) L Creatinine 0.7 MG/DL (0.55-1.30) Estimat Glomerular Filtration Rate > 60 mL/min (>60) Glucose Level 90 MG/DL (74-106) Uric Acid 6.3 MG/DL (2.6-7.2) Calcium Level 7.8 MG/DL (8.5-10.1) L Phosphorus Level 2.8 MG/DL (2.5-4.9) Total Bilirubin 0.4 MG/DL (0.2-1.0) Aspartate Amino Transf (AST/SGOT) 23 U/L (15-37) Alanine Aminotransferase (ALT/SGPT) 6 U/L (12-78) L Alkaline Phosphatase 64 U/L (46-116) C-Reactive Protein, Quantitative 2.5 mg/dL (0.00-0.90) H Total Protein 6.5 G/DL (6.4-8.2) Albumin 1.9 G/DL (3.4-5.0) L Globulin 4.6 g/dL Albumin/Globulin Ratio 0.4 (1.0-2.7) L Microbiology Date/Time Source Procedure Growth Status 03/09/19 16:00 Stool Clostridium difficile Toxin Assay - Final Complete Intake and Output 03/09/19 03/10/19 19:00 07:00 Intake Total 1255 ml 800 ml Output Total 800 ml 800 ml Balance 455 ml 0 ml Intake Oral 800 ml 800 ml IV Total 455 ml Output Urine Total 800 ml 800 ml # Voids 1 # Bowel Movements 1 Objective GENERAL: The patient is awake, responsive, no acute distress, but chronically cachectic and malnutrition. HEAD AND NECK: Pupils are equal and reactive to light. Extraocular movements intact. NECK: Supple. No JVD. LUNGS: Good air entry. No wheezing or rales. Decreased air in bases. HEART: S1 and S2. Distant heart sounds. No murmur or gallops. ABDOMEN: Soft, mildly distended. No rebound tenderness. Generalized tenderness. RECTAL: Refused and deferred. GENITOURINARY: Refused and deferred. PSYCHIATRIC: Mood and affect intact. Gait was not assessed due to the patient' s status. SKIN: Full thickness stage III pressure ulcer in the sacrum was noted presented on admission. NEUROLOGIC: Cranial nerves II through XII grossly intact. The patient moving all extremities. Lower extremities weaker than upper extremity and tender to touch in the lower extremity. Assessment/Plan Assessment/Plan ASSESSMENT: 1. Mild elevation of troponin most likely demand ischemia. 2. Severe dehydration with hypovolemia. 3. Anemia most likely secondary to the intra-abdominal infection. 4. Colitis. 5. BPH. 6. Hypertension presently hypotensive. 7. COPD. 8. Hyponatremia. 9. Pressure ulcer stage III sacrum present on admission. 10. Acute urinary tract infection. PLAN: Abx: Cefepime, Bactrim, and Vanco PO. Dr. Chavarria from Pulmonary Critical Care Dr. Romero from General surgery. Monitor laboratory as well as cultures. Code status Full code. DVT prophylaxis with heparin subcutaneous. Followup with wound care of the sacral ulcer. Oscar Martel MD Mar 10, 2019 13:59
--- NOTE | 2019-03-10 14:24 | General Progress Note ---
Assessment/Plan Status: stable, unchanged Assessment/Plan: Patient with stage 3 pressure ulcer of the sacrum in the presence of severe protein malnutrition. He needs to be offloaded q2 hours and recommend either therahoney or collagen dressing on the ulcer. The ulcer does not appear clinically infected and his leukocytosis is not due to the wound. No surgical intervention for the wound is necessary at this time. If patient continues to refuse direct visual examination of the wound will have to sign off the case. Subjective Date patient seen: Mar 10, 2019 Time patient seen: 13:00 Constitutional: Reports: no symptoms HEENT: Reports: no symptoms; Denies: eye pain, blurred vision, tearing, double vision, ear pain, ear discharge, nose pain, nose congestion, throat pain, throat swelling, mouth pain, mouth swelling, other Cardiovascular: Reports: no symptoms; Denies: chest pain, edema, irregular heart rate, lightheadedness, palpitations, syncope, other Respiratory: Denies: no symptoms, cough, orthopnea, shortness of breath, SOB with excertion, SOB at rest, sputum, stridor, wheezing, other Gastrointestinal/Abdominal: Reports: poor appetite; Denies: no symptoms, abdomen distended, abdominal pain, black stools, tarry stools, blood in stool, constipated, diarrhea, difficulty swallowing, nausea, poor fluid intake, rectal bleeding, vomiting, other Allergies: Coded Allergies: No Known Allergies (Unverified , 03/02/19) Subjective Follow up evaluation on patient with sacral pressure ulcer. He has no new complaints. Has started regular diet and is tolerating it. WBC is still elevated. Unclear the etiology but had + urine cx. Is on IV and PO abx. Objective Last 24 Hour Vital Signs Date Time Temp Pulse Resp B/P (MAP) Pulse Ox O2 Delivery O2 Flow Rate FiO2 03/10/19 12:00 97.5 96 18 119/83 (95) 95 03/10/19 08:35 Nasal Cannula 2.0 03/10/19 08:05 97.5 87 18 123/71 (88) 96 03/10/19 04:00 97.8 90 19 128/75 (92) 96 03/10/19 00:00 98.8 91 19 135/80 (98) 99 03/09/19 21:00 Nasal Cannula 2.0 03/09/19 20:00 98.0 95 19 118/65 (82) 96 03/09/19 16:00 98.1 85 18 123/71 (88) 97 Intake and Output 03/09/19 03/10/19 19:00 07:00 Intake Total 1255 ml 800 ml Output Total 800 ml 800 ml Balance 455 ml 0 ml Intake Oral 800 ml 800 ml IV Total 455 ml Output Urine Total 800 ml 800 ml # Voids 1 # Bowel Movements 1 Laboratory Tests 03/10/19 07:00: White Blood Count 16.6H, Red Blood Count 3.48L, Hemoglobin 9.6L, Hematocrit 28.5L, Mean Corpuscular Volume 82, Mean Corpuscular Hemoglobin 27.5, Mean Corpuscular Hemoglobin Concent 33.6, Red Cell Distribution Width 16.4H, Platelet Count 324, Mean Platelet Volume 6.4L, Neutrophils (%) (Auto) 60.4, Lymphocytes (%) (Auto) 24.3, Monocytes (%) (Auto) 9.5, Eosinophils (%) (Auto) 5.1H, Basophils (%) (Auto) 0.7, Sodium Level 133L, Potassium Level 4.4, Chloride Level 106, Carbon Dioxide Level 17L, Anion Gap 10, Blood Urea Nitrogen 5L, Creatinine 0.7, Estimat Glomerular Filtration Rate > 60, Glucose Level 90, Uric Acid 6.3, Calcium Level 7.8L, Phosphorus Level 2.8, Total Bilirubin 0.4, Aspartate Amino Transf (AST/SGOT) 23, Alanine Aminotransferase (ALT/SGPT) 6L, Alkaline Phosphatase 64, C-Reactive Protein, Quantitative 2.5H, Total Protein 6.5, Albumin 1.9L, Globulin 4.6, Albumin/Globulin Ratio 0.4L Height (Feet): 6 Height (Inches): 1.00 Weight (Pounds): 190 General Appearance: no apparent distress, alert Respiratory/Chest: no respiratory distress Skin: other - Patient refusing direct examination of the sacral ulcer. Review of the photo taken today of the wound shows Stage 3 sacral pressure ulcer with granular tissue at the base. No signs of erythema in the periwound skin based on the photo. Mitchel Ramírze MD Mar 10, 2019 14:24
--- NOTE | 2019-03-10 15:11 | Nephrology Progress Note ---
Assessment/Plan Problem List: (1) Hyponatremia (2) HIV disease (3) Colitis (4) Sepsis (5) BPH (benign prostatic hyperplasia) Assessment HypoNatremia: Etiology? depletional Other Dx: sepsis ( leukocytosis, fever, lactic acidosis, evidence of infection) colitis elevated troponin r/o ACS vs demand ischemia tachycardia dehydration + HIV asymptomatic bacteriuria /? UTI with MRSA- hx of HTN COPD BPH sacral decub st 3 POA anemia severe hypo Mg , likely due to diarrhea Plan Mag IV 3% Saline as needed IV K supplement as needed Protonix monitor lytes per orders Subjective ROS Limited/Unobtainable: No Constitutional: Reports: malaise Objective Objective Last 24 Hour Vital Signs Date Time Temp Pulse Resp B/P (MAP) Pulse Ox O2 Delivery O2 Flow Rate FiO2 03/10/19 12:00 97.5 96 18 119/83 (95) 95 03/10/19 08:35 Nasal Cannula 2.0 03/10/19 08:05 97.5 87 18 123/71 (88) 96 03/10/19 04:00 97.8 90 19 128/75 (92) 96 03/10/19 00:00 98.8 91 19 135/80 (98) 99 03/09/19 21:00 Nasal Cannula 2.0 03/09/19 20:00 98.0 95 19 118/65 (82) 96 03/09/19 16:00 98.1 85 18 123/71 (88) 97 Intake and Output 03/09/19 03/10/19 19:00 07:00 Intake Total 1255 ml 800 ml Output Total 800 ml 800 ml Balance 455 ml 0 ml Intake Oral 800 ml 800 ml IV Total 455 ml Output Urine Total 800 ml 800 ml # Voids 1 # Bowel Movements 1 Laboratory Tests 03/10/19 07:00: White Blood Count 16.6H, Red Blood Count 3.48L, Hemoglobin 9.6L, Hematocrit 28.5L, Mean Corpuscular Volume 82, Mean Corpuscular Hemoglobin 27.5, Mean Corpuscular Hemoglobin Concent 33.6, Red Cell Distribution Width 16.4H, Platelet Count 324, Mean Platelet Volume 6.4L, Neutrophils (%) (Auto) 60.4, Lymphocytes (%) (Auto) 24.3, Monocytes (%) (Auto) 9.5, Eosinophils (%) (Auto) 5.1H, Basophils (%) (Auto) 0.7, Sodium Level 133L, Potassium Level 4.4, Chloride Level 106, Carbon Dioxide Level 17L, Anion Gap 10, Blood Urea Nitrogen 5L, Creatinine 0.7, Estimat Glomerular Filtration Rate > 60, Glucose Level 90, Uric Acid 6.3, Calcium Level 7.8L, Phosphorus Level 2.8, Total Bilirubin 0.4, Aspartate Amino Transf (AST/SGOT) 23, Alanine Aminotransferase (ALT/SGPT) 6L, Alkaline Phosphatase 64, C-Reactive Protein, Quantitative 2.5H, Total Protein 6.5, Albumin 1.9L, Globulin 4.6, Albumin/Globulin Ratio 0.4L Height (Feet): 6 Height (Inches): 1.00 Weight (Pounds): 190 General Appearance: no apparent distress Respiratory/Chest: decreased breath sounds Abdomen: distended Objective no change Zander Razo MD Mar 10, 2019 15:11
--- NOTE | 2019-03-10 15:49 | Diagnostic Imaging Report ---
EXAM: XR Chest, 1 View CLINICAL HISTORY: F/U TECHNIQUE: Frontal view of the chest. COMPARISON: No relevant prior studies available. FINDINGS: Lungs: Bibasilar pneumonitis and atelectasis/scarring. Pulmonary emphysema. Pleural space: Unremarkable. No pneumothorax. Heart: Unremarkable. No cardiomegaly. Mediastinum: Unremarkable. Bones/joints: No acute fracture. IMPRESSION: Bibasilar pneumonitis and atelectasis/scarring.
[2019-03-10 16:00] VITALS: BP 118/73
--- NOTE | 2019-03-10 16:09 | Diagnostic Imaging Report ---
EXAM: XR Abdomen, 1 View CLINICAL HISTORY: F/U TECHNIQUE: Frontal supine view of the abdomen/pelvis. COMPARISON: No relevant prior studies available. FINDINGS: Gastrointestinal tract: Nonspecific bowel gas pattern. Bones/joints: No acute fracture. Lung bases pulmonary emphysema. IMPRESSION: Nonspecific bowel gas pattern.
[2019-03-10 16:44] LABS: APPEARANCE,URINE CLEAR; BILIRUBIN, URINE NEGATIVE (NEGATIVE); GLUCOSE, URINE (UA) NEGATIVE (NEGATIVE); KETONES,URINE 1+ (NEGATIVE); LEUKOCYTE ESTERASE ,URINE 1+ (NEGATIVE); NITRITE,URINE NEGATIVE (NEGATIVE); PH,URINE 6 (4.5-8.0); PROTEIN,URINE 2+ (NEGATIVE); UROBILINOGEN,URINE NORMAL MG/DL (0.0-1.0)
[2019-03-10 17:05] LABS: COLOR,URINE YELLOW
--- NOTE | 2019-03-10 19:24 | NUR ---
HAND-OFF: Report given to Ms.Thu RN Resting comfortably in bed, no sign of distress emily. michelle
--- NOTE | 2019-03-10 19:59 | NUR ---
NURSE NOTES: RECEIVED PT FROM [facility]. PT IS AWAKE, AAX4, ON NC 2L, NO ACUTE DISTRESS NOTED. PT DENIES PAIN. IV ON RIGHT HAND 24G IS INTACT AND PATENT. WOUND DRESSINGS DRY AND INTACT. BED IS LOCKED AND LOW, BED ALARMS ACTIVE, SIDE RAILS UP X2 AND CALL LIGHT IS WITHIN REACH. WILL CONTINUE TO MONITOR.
[2019-03-10 20:00] VITALS: BP 149/80
[2019-03-11] VITALS: BP 132/84
[2019-03-11 04:00] VITALS: BP 126/77
[2019-03-11] MEDS: metroNIDAZOLE 500mg tab ORAL SCH ×3 (06:42→20:31)
--- NOTE | 2019-03-11 07:07 | NUR ---
nurse notes received patient asleep,no sign of distress HL patent, both legs swollen elevated on pillow, on fall and aspiration precaution, encouraged to turn q2h for comfort and good circulation,wound dressing clean dry and intact, plan of care was discussed needs reinforcement 4P's in progress call light w/n reach, will continue to monitor patient condition michelle diaz
[2019-03-11 07:16] LABS: BASOPHILS % (AUTO) 1.2 % (0.0-2.0); EOSINOPHILS % (AUTO) 5.1 % (0.0-3.0); HEMATOCRIT 28.2 % (42.0-52.0); HEMOGLOBIN 9.4 G/DL (14.2-18.0); LYMPHOCYTES % (AUTO) 25.5 % (20.0-45.0); MEAN CORPUSCULAR VOLUME 83 FL (80-99); MONOCYTES % (AUTO) 9.9 % (1.0-10.0); NEUTROPHILS % (AUTO) 58.4 % (45.0-75.0); PLATELET COUNT 280 K/UL (150-450); RED BLOOD COUNT 3.42 M/UL (4.70-6.10); RED CELL DISTRIBUTION WIDTH 16.5 % (11.6-14.8); WHITE BLOOD COUNT 15.7 K/UL (4.8-10.8)
--- NOTE | 2019-03-11 07:22 | NUR ---
HAND-OFF: Report given to [facility].
[2019-03-11 07:48] LABS: ALANINE AMINOTRANSFERASE 10 U/L (12-78); ALBUMIN 1.8 G/DL (3.4-5.0); ALBUMIN/GLOBULIN RATIO 0.4 (1.0-2.7); ALKALINE PHOSPHATASE 61 U/L (46-116); ANION GAP 5 mmol/L (5-15); ASPARTATE AMINO TRANSFERASE 23 U/L (15-37); BILIRUBIN,TOTAL 0.3 MG/DL (0.2-1.0); BLOOD UREA NITROGEN 7 mg/dL (7-18); CARBON DIOXIDE 21 MMOL/L (21-32); CHLORIDE 105 MMOL/L (98-107); CREATININE 0.8 MG/DL (0.55-1.30); POTASSIUM 4.4 MMOL/L (3.5-5.1); SODIUM 131 MMOL/L (136-145)
[2019-03-11 08:00] VITALS: BP 150/87
[2019-03-11] MEDS: Cefepime HCl 1 GM in D5W 55 ML IVPB SCH ×2 (08:21→20:31)
--- NOTE | 2019-03-11 08:41 | General Progress Note ---
Assessment/Plan Status: stable, unchanged Assessment/Plan: Assessment/Plan Problems: (1) Diarrhea ICD Codes: R19.7 - Diarrhea, unspecified SNOMED: [id number] (2) Colitis (3) HIV Assessment/Plan This is a 63-year-old male patient who presents to the emergency room with abdominal pain and complaint of diarrhea secondary to suspected colitis seen on CT scan. OB stool negative C. difficile negative stool culture negative KUB reviewed - No definite acute process. Nonspecific bowel gas pattern. - Markedly abnormal bilateral hips as described. Could represent sequelae of process such as old bilateral avascular necrosis with resultant secondary degenerative change, lung other possibilities patient refused colonoscopy hold stool softeners and laxatives Imodium prn, Lomotil for persistent diarrhea abx per ID PPI IV and p.o. hydration plus electrolyte correction Zofran as needed Pain management Outpatient colonoscopy if patient agrees neg stool ob x1 Subjective ROS Limited/Unobtainable: No Allergies: Coded Allergies: No Known Allergies (Unverified , 03/02/19) Objective Last 24 Hour Vital Signs Date Time Temp Pulse Resp B/P (MAP) Pulse Ox O2 Delivery O2 Flow Rate FiO2 03/11/19 04:00 98.0 93 20 126/77 (93) 97 03/11/19 00:00 98.4 89 20 132/84 (100) 96 03/10/19 21:00 Nasal Cannula 2.0 03/10/19 20:00 98.2 90 20 149/80 (103) 98 03/10/19 16:00 97.9 89 18 118/73 (88) 99 03/10/19 12:00 97.5 96 18 119/83 (95) 95 Intake and Output 03/10/19 03/11/19 18:59 06:59 Intake Total 1255 ml 2110 ml Output Total 550 ml Balance 1255 ml 1560 ml Intake Oral 800 ml IV Total 55 ml 110 ml Other 1200 ml 1200 ml Output Urine Total 550 ml # Voids 1 # Bowel Movements 1 Laboratory Tests 03/10/19 16:00: Urine Color Yellow, Urine Appearance Clear, Urine pH 6, Urine Specific [place] 1.015, Urine Protein 2+H, Urine Glucose (UA) Negative, Urine Ketones 1+H, Urine Blood 1+H, Urine Nitrite Negative, Urine Bilirubin Negative, Urine Urobilinogen Normal, Urine Leukocyte Esterase 1+H, Urine RBC 5-10H, Urine WBC 2-4, Urine Squamous Epithelial Cells None, Urine Bacteria Few 03/11/19 06:10: White Blood Count 15.7H, Red Blood Count 3.42L, Hemoglobin 9.4L, Hematocrit 28.2L, Mean Corpuscular Volume 83, Mean Corpuscular Hemoglobin 27.5, Mean Corpuscular Hemoglobin Concent 33.4, Red Cell Distribution Width 16.5H, Platelet Count 280, Mean Platelet Volume 5.8L, Neutrophils (%) (Auto) 58.4, Lymphocytes (%) (Auto) 25.5, Monocytes (%) (Auto) 9.9, Eosinophils (%) (Auto) 5.1H, Basophils (%) (Auto) 1.2, Sodium Level 131L, Potassium Level 4.4, Chloride Level 105, Carbon Dioxide Level 21, Anion Gap 5, Blood Urea Nitrogen 7 , Creatinine 0.8, Estimat Glomerular Filtration Rate > 60, Glucose Level 91, Calcium Level 8.0L, Total Bilirubin 0.3, Aspartate Amino Transf (AST/SGOT) 23, Alanine Aminotransferase (ALT/SGPT) 10L, Alkaline Phosphatase 61, C-Reactive Protein, Quantitative 2.1H, Total Protein 6.5, Albumin 1.8L, Globulin 4.7, Albumin/Globulin Ratio 0.4L, Lipase 249 Height (Feet): 6 Height (Inches): 1.00 Weight (Pounds): 190 General Appearance: no apparent distress EENT: normal ENT inspection Neck: supple Cardiovascular: normal rate Respiratory/Chest: decreased breath sounds Abdomen: normal bowel sounds, non tender, soft Extremities: non-tender Mansoor Interiano MD Mar 11, 2019 08:41
[2019-03-11] MEDS: Bactrim-DS 1 tab ORAL SCH ×2 (10:40→20:31)
[2019-03-11] MEDS: Tamsulosin 0.4mg cap ORAL SCH ×2 (10:40→17:32)
[2019-03-11] MEDS: Vancomycin oral 125mg/2.5ml ORAL SCH ×4 (10:40→20:31)
--- NOTE | 2019-03-11 10:57 | Diagnostic Imaging Report ---
EXAM: CT Abdomen and Pelvis With Intravenous Contrast CLINICAL HISTORY: ABN LABS TECHNIQUE: Axial computed tomography images of the abdomen and pelvis with intravenous contrast. CTDI is 13.3 mGy and DLP is 744.7 mGy-cm. One or more of the following dose reduction techniques were used: automated exposure control, adjustment of the mA and/or kV according to patient size, use of iterative reconstruction technique. COMPARISON: CT abdomen/pelvis on 03/02/2019 FINDINGS: Lung bases: Emphysematous changes in the visualized lung bases. Pleural space: Trace bilateral pleural effusions. Associated atelectasis. Heart: Small amount of pericardial fluid. ABDOMEN: Liver: Small hypodensities in the liver are too small to definitively characterize. Gallbladder and bile ducts: Unremarkable. No calcified stones. No ductal dilation. Pancreas: Unremarkable. No mass. No ductal dilation. Spleen: Unremarkable. No splenomegaly. Adrenals: Unremarkable. No mass. Kidneys and ureters: Small hypodensity in the left kidney is too small to definitively characterize. No hydronephrosis or obstructing stone. Stomach and bowel: Prominent wall thickening of the entire colon and rectum is concerning for pancolitis and proctitis. Fluid and gas-filled small bowel loops could represent an element of ileus or enteritis. No obstruction. PELVIS: Appendix: Appendix is not visualized on this exam. Bladder: Wall thickening of the bladder is nonspecific. Please correlate with urinalysis to evaluate for cystitis. Reproductive: Unremarkable as visualized. ABDOMEN and PELVIS: Intraperitoneal space: Moderate to large amount of ascites. No free air. Bones/joints: Prominent degenerative changes of the hips with remodeling/flattening of the femoral heads. No acute fracture. No dislocation. Soft tissues: Anasarca. Vasculature: Atherosclerotic changes of the vasculature. Small focal aneurysms off the abdominal aorta. Lymph nodes: Enlarged retroperitoneal lymph nodes are nonspecific but stable. IMPRESSION: 1. Trace bilateral pleural effusions. Associated atelectasis. 2. Prominent wall thickening of the entire colon and rectum is concerning for pancolitis and proctitis. 3. Fluid and gas-filled small bowel loops could represent an element of ileus or enteritis. 4. Moderate to large amount of ascites. 5. Anasarca. 6. Wall thickening of the bladder is nonspecific. Please correlate with urinalysis to evaluate for cystitis.
[2019-03-11 10:58] LABS: PHOSPHORUS 2.7 MG/DL (2.5-4.9)
[2019-03-11 12:02] VITALS: BP 143/79
--- NOTE | 2019-03-11 12:22 | Surgery Progress Note ---
Surgery Progress Note Subjective Additional Comments no acute events imaging reviewed patient states he feels okay and no complaints no pain no n/v/f/c labs noted ESR/CRP noted Objective Last 24 Hour Vital Signs Date Time Temp Pulse Resp B/P (MAP) Pulse Ox O2 Delivery O2 Flow Rate FiO2 03/11/19 12:02 96.6 98 20 143/79 (100) 100 03/11/19 08:20 Room Air 03/11/19 08:00 98.4 96 16 150/87 (108) 100 03/11/19 04:00 98.0 93 20 126/77 (93) 97 03/11/19 00:00 98.4 89 20 132/84 (100) 96 03/10/19 21:00 Nasal Cannula 2.0 03/10/19 20:00 98.2 90 20 149/80 (103) 98 03/10/19 16:00 97.9 89 18 118/73 (88) 99 I&O Intake and Output 03/10/19 03/11/19 18:59 06:59 Intake Total 1255 ml 2110 ml Output Total 550 ml Balance 1255 ml 1560 ml Intake Oral 800 ml IV Total 55 ml 110 ml Other 1200 ml 1200 ml Output Urine Total 550 ml # Voids 1 # Bowel Movements 1 Dressing: other Wound: other Drains: none Cardiovascular: RSR Respiratory: clear, decreased breath sounds Abdomen: soft, present bowel sounds, other Extremities: no cyanosis, other Laboratory Tests Test 03/10/19 16:00 03/11/19 06:10 Urine Color Yellow Urine Appearance Clear Urine pH 6 (4.5-8.0) Urine Specific [place] 1.015 (1.005-1.035) Urine Protein 2+ (NEGATIVE) H Urine Glucose (UA) Negative (NEGATIVE) Urine Ketones 1+ (NEGATIVE) H Urine Blood 1+ (NEGATIVE) H Urine Nitrite Negative (NEGATIVE) Urine Bilirubin Negative (NEGATIVE) Urine Urobilinogen Normal MG/DL (0.0-1.0) Urine Leukocyte Esterase 1+ (NEGATIVE) H Urine RBC 5-10 /HPF (0 - 0) H Urine WBC 2-4 /HPF (0 - 0) Urine Squamous Epithelial Cells None /LPF (NONE/OCC) Urine Bacteria Few /HPF (NONE) White Blood Count 15.7 K/UL (4.8-10.8) H Red Blood Count 3.42 M/UL (4.70-6.10) L Hemoglobin 9.4 G/DL (14.2-18.0) L Hematocrit 28.2 % (42.0-52.0) L Mean Corpuscular Volume 83 FL (80-99) Mean Corpuscular Hemoglobin 27.5 PG (27.0-31.0) Mean Corpuscular Hemoglobin Concent 33.4 G/DL (32.0-36.0) Red Cell Distribution Width 16.5 % (11.6-14.8) H Platelet Count 280 K/UL (150-450) Mean Platelet Volume 5.8 FL (6.5-10.1) L Neutrophils (%) (Auto) 58.4 % (45.0-75.0) Lymphocytes (%) (Auto) 25.5 % (20.0-45.0) Monocytes (%) (Auto) 9.9 % (1.0-10.0) Eosinophils (%) (Auto) 5.1 % (0.0-3.0) H Basophils (%) (Auto) 1.2 % (0.0-2.0) Erythrocyte Sedimentation Rate 87 MM/HR (0-20) H Sodium Level 131 MMOL/L (136-145) L Potassium Level 4.4 MMOL/L (3.5-5.1) Chloride Level 105 MMOL/L (98-107) Carbon Dioxide Level 21 MMOL/L (21-32) Anion Gap 5 mmol/L (5-15) Blood Urea Nitrogen 7 mg/dL (7-18) Creatinine 0.8 MG/DL (0.55-1.30) Estimat Glomerular Filtration Rate > 60 mL/min (>60) Glucose Level 91 MG/DL (74-106) Calcium Level 8.0 MG/DL (8.5-10.1) L Phosphorus Level 2.7 MG/DL (2.5-4.9) Magnesium Level 1.4 MG/DL (1.8-2.4) L Total Bilirubin 0.3 MG/DL (0.2-1.0) Aspartate Amino Transf (AST/SGOT) 23 U/L (15-37) Alanine Aminotransferase (ALT/SGPT) 10 U/L (12-78) L Alkaline Phosphatase 61 U/L (46-116) C-Reactive Protein, Quantitative 2.1 mg/dL (0.00-0.90) H Total Protein 6.5 G/DL (6.4-8.2) Albumin 1.8 G/DL (3.4-5.0) L Globulin 4.7 g/dL Albumin/Globulin Ratio 0.4 (1.0-2.7) L Lipase 249 U/L (73-393) Plan Problems: (1) Decubitus skin ulcer Assessment & Plan: Pt presented on admission with multiple pressure injuries. Blood blisters to ezequiel R tibia and medial L tibia. Full Thickness stage 3 pressure injury Sacrum . Base of wound 60% biofilm,40% viable. Edges are macerated bordered by black and fluctuant base with additional wounds at R sacrum. No odor or exudate noted. Pt complained of pain at site when in supine. Rigidity noted to both lower extremities and pt heels are in continuously in contact. DTPI noted to medial R heel . Base of wound with purple with maroon borders and fluctuant at base (L)4cm x (W)4cm .Periwound R heel is boggy but blanchable. DTPI medial L heel . Base of wound is maroon with scattered purple areas and is fluctuant at base. Periwound L heel is boggy but blanchable. Tx.Plan: Cleanse Sacral wound with Saline. Apply Therahoney. Apply Moisture Barrier periwound. Cover with Optifoam drsg every 3 days and prn. Apply Cavilon Skin Barrier to blood blisters R and L tibia. Cover each wound with Optifoam drsg. Change every 7 days and prn. Apply Cavilon Skin Barrier to both heels. Cover each heel with Optifoam drsg. Change every 7 days and prn. APM/KRISTI Mattress overlay. Reposition at least every 2hours or as tolerated. Place pillow between lower ext to keep Heels apart. Off-load heels with pillow. (2) Colitis Assessment & Plan: Findings: Significant artifact limits evaluation. The lung bases notable for posterior basal atelectasis. Patchy groundglass opacities also noted nonspecific. Trace pericardial fluid demonstrated. No obvious hydronephrosis or stones identified. No obvious free fluid identified. Question of gallstones. Aortoiliac calcifications are present. There is thickening of the wall of the colon especially noted on the right side involving the ascending colon and cecum. Findings suspicious for colitis. Correlate clinically. There is thickening of the wall the urinary bladder. 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 Anasarca noted. IMPRESSION: Limited evaluation due to technical artifacts. Suspected colitis with the thickening of the wall the colon. Correlate clinically. Thickening of the wall the urinary bladder. Correlate for cystitis. -Seen by GI and recommended to have Colonoscopy but declined 1. Trace bilateral pleural effusions. Associated atelectasis. 2. Prominent wall thickening of the entire colon and rectum is concerning for pancolitis and proctitis. 3. Fluid and gas-filled small bowel loops could represent an element of ileus or enteritis. 4. Moderate to large amount of ascites. 5. Anasarca. 6. Wall thickening of the bladder is nonspecific. Please correlate with urinalysis to evaluate for cystitis. exam stable no n/v/f/c will follow up with recs (3) Sepsis Assessment & Plan: febrile t max 104 - resolved leukocytosis lactic acidosis - resolved exam improved CT with colitis worse now likely etiology of sepsis cultures noted ABX as per ID OB stool negative C. difficile negative and repeat C. difficile negative stool culture negative KUB reviewed - No definite acute process. Nonspecific bowel gas pattern. - Markedly abnormal bilateral hips as described. Could represent sequelae of process such as old bilateral avascular necrosis with resultant secondary degenerative change, lung other possibilities improving Imaging labs ordered Still pending work-up of etiology leukocytosis though patient clinically improving will follow with exam and recs okay for diet (4) Nausea vomiting and diarrhea César Romero Mar 11, 2019 12:22
--- NOTE | 2019-03-11 13:58 | Internal Med Progress Note ---
Subjective Physician Name Oscar Martel Attending Physician Oscar Martel MD Current Medications Medications (Trade) Dose Ordered Sig/Deborah Route PRN Reason Start Time Stop Time Status Last Admin Dose Admin Acetaminophen (Tylenol) 650 mg Q4H PRN ORAL Mild Pain/Temp > 100.5 03/06/19 08:15 04/01/19 08:14 Acetaminophen/ Hydrocodone Bitart ([place] 5/325) 1 tab Q4H PRN ORAL Moderate Pain (Pain Scale 4-6) 03/08/19 15:00 03/11/19 14:59 Barium Sulfate (Readi-Cat 2) 450 ml NOW PRN ORAL Radiology Procedure 03/10/19 13:30 03/12/19 13:30 Cefepime HCl 1 gm/ Dextrose 55 ml @ 110 mls/hr EVERY 12 HOURS IVPB 03/06/19 09:00 03/15/19 23:59 03/11/19 08:21 Diatrizoate Meglum/ Diatrizoate Sod (Gastrografin) 30 ml NOW PRN ORAL Radiology Procedure 03/10/19 13:30 03/12/19 13:29 Diphenoxylate HCl/ Atropine (Lomotil) 2.5 mg Q4H PRN ORAL Diarrhea 03/09/19 12:30 04/08/19 12:29 Iohexol (OMNIPAQUE-300 100ml) 100 ml NOW PRN INJ Radiology Procedure 03/10/19 13:30 03/12/19 13:30 Loperamide HCl (Imodium) 2 mg Q4H PRN ORAL Diarrhea 03/06/19 13:45 04/05/19 13:44 03/09/19 13:48 Metronidazole (Flagyl) 500 mg Q8HR ORAL 03/08/19 22:00 03/15/19 23:59 03/11/19 13:12 Ondansetron HCl (Zofran) 4 mg Q4H PRN IVP Nausea & Vomiting 03/06/19 08:15 04/01/19 08:14 Pantoprazole (Protonix) 40 mg DAILY ORAL 03/07/19 09:00 04/03/19 20:59 03/11/19 10:40 Tamsulosin HCl (Flomax) 0.4 mg BID ORAL 03/06/19 09:00 04/02/19 08:59 03/11/19 10:40 Trimethoprim/ Sulfamethoxazole (Bactrim-DS) 1 tab Q12HR ORAL 03/06/19 21:00 03/13/19 20:59 03/11/19 10:40 Vancomycin HCl (Firvanq) 125 mg FOUR TIMES A DAY ORAL 03/09/19 18:00 03/16/19 17:59 03/11/19 13:12 Allergies: Coded Allergies: No Known Allergies (Unverified , 03/02/19) Subjective Awake, alert, responsive, complain about poor appetite. + Diarrhea, WBC: 15.7, Stool for C.Diff toxin Negative. Objective Last Vital Signs Date Time Temp Pulse Resp B/P (MAP) Pulse Ox O2 Delivery O2 Flow Rate FiO2 03/11/19 12:02 96.6 98 20 143/79 (100) 100 03/11/19 08:20 Room Air 03/10/19 21:00 2.0 Laboratory Tests Test 03/10/19 16:00 03/11/19 06:10 Urine Color Yellow Urine Appearance Clear Urine pH 6 (4.5-8.0) Urine Specific [place] 1.015 (1.005-1.035) Urine Protein 2+ (NEGATIVE) H Urine Glucose (UA) Negative (NEGATIVE) Urine Ketones 1+ (NEGATIVE) H Urine Blood 1+ (NEGATIVE) H Urine Nitrite Negative (NEGATIVE) Urine Bilirubin Negative (NEGATIVE) Urine Urobilinogen Normal MG/DL (0.0-1.0) Urine Leukocyte Esterase 1+ (NEGATIVE) H Urine RBC 5-10 /HPF (0 - 0) H Urine WBC 2-4 /HPF (0 - 0) Urine Squamous Epithelial Cells None /LPF (NONE/OCC) Urine Bacteria Few /HPF (NONE) White Blood Count 15.7 K/UL (4.8-10.8) H Red Blood Count 3.42 M/UL (4.70-6.10) L Hemoglobin 9.4 G/DL (14.2-18.0) L Hematocrit 28.2 % (42.0-52.0) L Mean Corpuscular Volume 83 FL (80-99) Mean Corpuscular Hemoglobin 27.5 PG (27.0-31.0) Mean Corpuscular Hemoglobin Concent 33.4 G/DL (32.0-36.0) Red Cell Distribution Width 16.5 % (11.6-14.8) H Platelet Count 280 K/UL (150-450) Mean Platelet Volume 5.8 FL (6.5-10.1) L Neutrophils (%) (Auto) 58.4 % (45.0-75.0) Lymphocytes (%) (Auto) 25.5 % (20.0-45.0) Monocytes (%) (Auto) 9.9 % (1.0-10.0) Eosinophils (%) (Auto) 5.1 % (0.0-3.0) H Basophils (%) (Auto) 1.2 % (0.0-2.0) Erythrocyte Sedimentation Rate 87 MM/HR (0-20) H Sodium Level 131 MMOL/L (136-145) L Potassium Level 4.4 MMOL/L (3.5-5.1) Chloride Level 105 MMOL/L (98-107) Carbon Dioxide Level 21 MMOL/L (21-32) Anion Gap 5 mmol/L (5-15) Blood Urea Nitrogen 7 mg/dL (7-18) Creatinine 0.8 MG/DL (0.55-1.30) Estimat Glomerular Filtration Rate > 60 mL/min (>60) Glucose Level 91 MG/DL (74-106) Calcium Level 8.0 MG/DL (8.5-10.1) L Phosphorus Level 2.7 MG/DL (2.5-4.9) Magnesium Level 1.4 MG/DL (1.8-2.4) L Total Bilirubin 0.3 MG/DL (0.2-1.0) Aspartate Amino Transf (AST/SGOT) 23 U/L (15-37) Alanine Aminotransferase (ALT/SGPT) 10 U/L (12-78) L Alkaline Phosphatase 61 U/L (46-116) C-Reactive Protein, Quantitative 2.1 mg/dL (0.00-0.90) H Total Protein 6.5 G/DL (6.4-8.2) Albumin 1.8 G/DL (3.4-5.0) L Globulin 4.7 g/dL Albumin/Globulin Ratio 0.4 (1.0-2.7) L Lipase 249 U/L (73-393) Microbiology Date/Time Source Procedure Growth Status 03/09/19 16:00 Stool Clostridium difficile Toxin Assay - Final Complete Intake and Output 03/10/19 03/11/19 19:00 07:00 Intake Total 1255 ml 2110 ml Output Total 550 ml Balance 1255 ml 1560 ml Intake Oral 800 ml IV Total 55 ml 110 ml Other 1200 ml 1200 ml Output Urine Total 550 ml # Voids 1 # Bowel Movements 1 Objective GENERAL: The patient is awake, responsive, no acute distress, but chronically cachectic and malnutrition. HEAD AND NECK: Pupils are equal and reactive to light. Extraocular movements intact. NECK: Supple. No JVD. LUNGS: Good air entry. No wheezing or rales. Decreased air in bases. HEART: S1 and S2. Distant heart sounds. No murmur or gallops. ABDOMEN: Soft, mildly distended. No rebound tenderness. less generalized tenderness. RECTAL: Refused and deferred. GENITOURINARY: Refused and deferred. PSYCHIATRIC: Mood and affect intact. SKIN: Full thickness stage III pressure ulcer in the sacrum was noted presented on admission. NEUROLOGIC: Cranial nerves II through XII grossly intact. The patient moving all extremities. Lower extremities weaker than upper extremity and tender to touch in the lower extremity. Assessment/Plan Assessment/Plan ASSESSMENT: 1. Mild elevation of troponin most likely demand ischemia. 2. Severe dehydration with hypovolemia. 3. Anemia most likely secondary to the intra-abdominal infection. 4. Pancolitis. 5. BPH. 6. Hypertension presently hypotensive. 7. COPD. 8. Hyponatremia. 9. Pressure ulcer stage III sacrum present on admission. 10. Acute urinary tract infection. PLAN: Abx: Cefepime, Bactrim, Flagyl and Vanco PO. Dr. Chavarria from Pulmonary Critical Care Dr. Romero from General surgery. Dr. Interiano from GI. Monitor laboratory as well as cultures. Code status Full code. DVT prophylaxis with heparin subcutaneous. Followup with wound care of the sacral ulcer. Oscar Martel MD Mar 11, 2019 13:58
--- NOTE | 2019-03-11 14:20 | Infectious Diseases Prog Note ---
Assessment/Plan Assessment/Plan 63yo man admitted with abdominal pain and diarrhea. Fever, SP Leukocytosis Lactic acidosis, SP diarrhea/colitis 03/09 CT: Trace bilateral pleural effusions. Associated atelectasis. Prominent wall thickening of the entire colon and rectum is concerning for pancolitis and proctitis. Fluid and gas-filled small bowel loops could represent an element of ileus or enteritis. Moderate to large amount of ascites. Anasarca. Wall thickening of the bladder is nonspecific. Please correlate with urinalysis to evaluate for cystitis. 03/02 CT: Suspected colitis with the thickening of the wall the colon. Correlate clinically. Thickening of the wall the urinary bladder. Correlate for cystitis. C diff negative x2 stool cx negative stool o/p negative it appears pt had an episode of diarrhea/colitis back in January as well. Dx with UTI and given cipro. Then had C diff 02/15...pending record from CT whether this was treated given recurrent diarrhea, recommend colonoscopy but pt refused. pt also has been refusing other care(ie/ PT, physical exams). will not answer questions about travel, diet or epidemiological risk factors saying "woman, you ask too many questions. leave me alone." Pt has history of diarrhea 02/08/19 and was hospitalized at [facility] and dx with IBD without flare 02/07 CT: pulm emphysema, atelectasis at lung bases, unchanged circumferential bladder wall thickening, nonspecific. diffuse thickening of the wall of hepatic flexure and ascending colon. indicate inflammatory bowel disease or ischemia. severe degenerative changes of hips. unlikely UTI UA pos UCx Staph, likely colonizer HIV Screen positive HIV-1 Abt positive. 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 CD4 180 RPR negative stool o/p negative x1 CMV colitis unlikely given CD4 count discussed lab result with patient, he is in denial stating that he does not have HIV and that the hospital gave him HIV pt is not interested in starting medication at this time offered to provide more information including treatment options and prognosis but pt declined CXR: Bibasilar pneumonitis and atelectasis/scarring. Pulmonary emphysema. 1. COPD. 2. Hypertension. 3. BPH. 4. History of cocaine abuse in the past. 5. Bedbound. PLAN: continue cefepime and flagyl #10. Bactrim DS BID #6/10 for cyclospora and isospora. Vanc PO #3 given pt recently had pos PCR, Mary only has toxin test monitor CBC, temp f/u bcx Entamoeba, Giardia stool AFB urine histoplasma gonorrhea chlamydia NAAT, urine and rectum repeat stool o/p pt must follow up with PMD/HIV specialist once discharged recommend colonoscopy to rule out noninfectious etiology of diarrhea: IBD, Kaposi's Thank you, Dr. Martel, for allowing me to participate in the care of this patient. I will follow the patient with you during this admission. Subjective Allergies: Coded Allergies: No Known Allergies (Unverified , 03/02/19) Subjective Afebrile. Minimal stool output per nurse but pt reports continued diarrhea. No rectal pain CT worse Objective Vital Signs Last 24 Hour Vital Signs Date Time Temp Pulse Resp B/P (MAP) Pulse Ox O2 Delivery O2 Flow Rate FiO2 03/11/19 12:02 96.6 98 20 143/79 (100) 100 03/11/19 08:20 Room Air 03/11/19 08:00 98.4 96 16 150/87 (108) 100 03/11/19 04:00 98.0 93 20 126/77 (93) 97 03/11/19 00:00 98.4 89 20 132/84 (100) 96 03/10/19 21:00 Nasal Cannula 2.0 03/10/19 20:00 98.2 90 20 149/80 (103) 98 03/10/19 16:00 97.9 89 18 118/73 (88) 99 Height (Feet): 6 Height (Inches): 1.00 Weight (Pounds): 190 Objective HEENT: No pale conjunctivae. No icterus. NECK: No lymphadenopathy. CHEST: Coarse breathing sounds. HEART: S1 and S2. Abd: refused exam EXTREMITIES: No cellulitis or cyanosis. SKIN: Stage III decubitus in the sacral area Microbiology Date/Time Source Procedure Growth Status 03/09/19 16:00 Stool Clostridium difficile Toxin Assay - Final Complete Laboratory Tests Test 03/10/19 16:00 03/11/19 06:10 Urine Color Yellow Urine Appearance Clear Urine pH 6 (4.5-8.0) Urine Specific [place] 1.015 (1.005-1.035) Urine Protein 2+ (NEGATIVE) H Urine Glucose (UA) Negative (NEGATIVE) Urine Ketones 1+ (NEGATIVE) H Urine Blood 1+ (NEGATIVE) H Urine Nitrite Negative (NEGATIVE) Urine Bilirubin Negative (NEGATIVE) Urine Urobilinogen Normal MG/DL (0.0-1.0) Urine Leukocyte Esterase 1+ (NEGATIVE) H Urine RBC 5-10 /HPF (0 - 0) H Urine WBC 2-4 /HPF (0 - 0) Urine Squamous Epithelial Cells None /LPF (NONE/OCC) Urine Bacteria Few /HPF (NONE) White Blood Count 15.7 K/UL (4.8-10.8) H Red Blood Count 3.42 M/UL (4.70-6.10) L Hemoglobin 9.4 G/DL (14.2-18.0) L Hematocrit 28.2 % (42.0-52.0) L Mean Corpuscular Volume 83 FL (80-99) Mean Corpuscular Hemoglobin 27.5 PG (27.0-31.0) Mean Corpuscular Hemoglobin Concent 33.4 G/DL (32.0-36.0) Red Cell Distribution Width 16.5 % (11.6-14.8) H Platelet Count 280 K/UL (150-450) Mean Platelet Volume 5.8 FL (6.5-10.1) L Neutrophils (%) (Auto) 58.4 % (45.0-75.0) Lymphocytes (%) (Auto) 25.5 % (20.0-45.0) Monocytes (%) (Auto) 9.9 % (1.0-10.0) Eosinophils (%) (Auto) 5.1 % (0.0-3.0) H Basophils (%) (Auto) 1.2 % (0.0-2.0) Erythrocyte Sedimentation Rate 87 MM/HR (0-20) H Sodium Level 131 MMOL/L (136-145) L Potassium Level 4.4 MMOL/L (3.5-5.1) Chloride Level 105 MMOL/L (98-107) Carbon Dioxide Level 21 MMOL/L (21-32) Anion Gap 5 mmol/L (5-15) Blood Urea Nitrogen 7 mg/dL (7-18) Creatinine 0.8 MG/DL (0.55-1.30) Estimat Glomerular Filtration Rate > 60 mL/min (>60) Glucose Level 91 MG/DL (74-106) Calcium Level 8.0 MG/DL (8.5-10.1) L Phosphorus Level 2.7 MG/DL (2.5-4.9) Magnesium Level 1.4 MG/DL (1.8-2.4) L Total Bilirubin 0.3 MG/DL (0.2-1.0) Aspartate Amino Transf (AST/SGOT) 23 U/L (15-37) Alanine Aminotransferase (ALT/SGPT) 10 U/L (12-78) L Alkaline Phosphatase 61 U/L (46-116) C-Reactive Protein, Quantitative 2.1 mg/dL (0.00-0.90) H Total Protein 6.5 G/DL (6.4-8.2) Albumin 1.8 G/DL (3.4-5.0) L Globulin 4.7 g/dL Albumin/Globulin Ratio 0.4 (1.0-2.7) L Lipase 249 U/L (73-393) Current Medications Medications (Trade) Dose Ordered Sig/Deborah Route PRN Reason Start Time Stop Time Status Last Admin Dose Admin Acetaminophen (Tylenol) 650 mg Q4H PRN ORAL Mild Pain/Temp > 100.5 03/06/19 08:15 04/01/19 08:14 Acetaminophen/ Hydrocodone Bitart ([place] 5/325) 1 tab Q4H PRN ORAL Moderate Pain (Pain Scale 4-6) 03/08/19 15:00 03/11/19 14:59 Barium Sulfate (Readi-Cat 2) 450 ml NOW PRN ORAL Radiology Procedure 03/10/19 13:30 03/12/19 13:30 Cefepime HCl 1 gm/ Dextrose 55 ml @ 110 mls/hr EVERY 12 HOURS IVPB 03/06/19 09:00 03/15/19 23:59 03/11/19 08:21 Diatrizoate Meglum/ Diatrizoate Sod (Gastrografin) 30 ml NOW PRN ORAL Radiology Procedure 03/10/19 13:30 03/12/19 13:29 Diphenoxylate HCl/ Atropine (Lomotil) 2.5 mg Q4H PRN ORAL Diarrhea 03/09/19 12:30 04/08/19 12:29 Iohexol (OMNIPAQUE-300 100ml) 100 ml NOW PRN INJ Radiology Procedure 03/10/19 13:30 03/12/19 13:30 Loperamide HCl (Imodium) 2 mg Q4H PRN ORAL Diarrhea 03/06/19 13:45 04/05/19 13:44 03/09/19 13:48 Metronidazole (Flagyl) 500 mg Q8HR ORAL 03/08/19 22:00 03/15/19 23:59 03/11/19 13:12 Ondansetron HCl (Zofran) 4 mg Q4H PRN IVP Nausea & Vomiting 03/06/19 08:15 04/01/19 08:14 Pantoprazole (Protonix) 40 mg DAILY ORAL 03/07/19 09:00 04/03/19 20:59 03/11/19 10:40 Tamsulosin HCl (Flomax) 0.4 mg BID ORAL 03/06/19 09:00 04/02/19 08:59 03/11/19 10:40 Trimethoprim/ Sulfamethoxazole (Bactrim-DS) 1 tab Q12HR ORAL 03/06/19 21:00 03/13/19 20:59 03/11/19 10:40 Vancomycin HCl (Firvanq) 125 mg FOUR TIMES A DAY ORAL 03/09/19 18:00 03/16/19 17:59 03/11/19 13:12 Olegario Carroll MD Mar 11, 2019 14:20
--- NOTE | 2019-03-11 15:17 | Nephrology Progress Note ---
Assessment/Plan Problem List: (1) Hyponatremia (2) HIV disease (3) Colitis (4) Sepsis (5) BPH (benign prostatic hyperplasia) Assessment HypoNatremia: Etiology? depletional Other Dx: sepsis ( leukocytosis, fever, lactic acidosis, evidence of infection) colitis elevated troponin r/o ACS vs demand ischemia tachycardia dehydration + HIV asymptomatic bacteriuria /? UTI with MRSA- hx of HTN COPD BPH sacral decub st 3 POA anemia severe hypo Mg , likely due to diarrhea Plan Mag IV 3% Saline as needed IV K supplement as needed Protonix monitor lytes per orders Subjective ROS Limited/Unobtainable: No Constitutional: Reports: malaise Objective Objective Last 24 Hour Vital Signs Date Time Temp Pulse Resp B/P (MAP) Pulse Ox O2 Delivery O2 Flow Rate FiO2 03/11/19 12:02 96.6 98 20 143/79 (100) 100 03/11/19 08:20 Room Air 03/11/19 08:00 98.4 96 16 150/87 (108) 100 03/11/19 04:00 98.0 93 20 126/77 (93) 97 03/11/19 00:00 98.4 89 20 132/84 (100) 96 03/10/19 21:00 Nasal Cannula 2.0 03/10/19 20:00 98.2 90 20 149/80 (103) 98 03/10/19 16:00 97.9 89 18 118/73 (88) 99 Intake and Output 03/10/19 03/11/19 19:00 07:00 Intake Total 1255 ml 2110 ml Output Total 550 ml Balance 1255 ml 1560 ml Intake Oral 800 ml IV Total 55 ml 110 ml Other 1200 ml 1200 ml Output Urine Total 550 ml # Voids 1 # Bowel Movements 1 Laboratory Tests 03/10/19 16:00: Urine Color Yellow, Urine Appearance Clear, Urine pH 6, Urine Specific [place] 1.015, Urine Protein 2+H, Urine Glucose (UA) Negative, Urine Ketones 1+H, Urine Blood 1+H, Urine Nitrite Negative, Urine Bilirubin Negative, Urine Urobilinogen Normal, Urine Leukocyte Esterase 1+H, Urine RBC 5-10H, Urine WBC 2-4, Urine Squamous Epithelial Cells None, Urine Bacteria Few 03/11/19 06:10: White Blood Count 15.7H, Red Blood Count 3.42L, Hemoglobin 9.4L, Hematocrit 28.2L, Mean Corpuscular Volume 83, Mean Corpuscular Hemoglobin 27.5, Mean Corpuscular Hemoglobin Concent 33.4, Red Cell Distribution Width 16.5H, Platelet Count 280, Mean Platelet Volume 5.8L, Neutrophils (%) (Auto) 58.4, Lymphocytes (%) (Auto) 25.5, Monocytes (%) (Auto) 9.9, Eosinophils (%) (Auto) 5.1H, Basophils (%) (Auto) 1.2, Erythrocyte Sedimentation Rate 87H, Sodium Level 131L, Potassium Level 4.4, Chloride Level 105, Carbon Dioxide Level 21, Anion Gap 5, Blood Urea Nitrogen 7, Creatinine 0.8, Estimat Glomerular Filtration Rate > 60, Glucose Level 91, Calcium Level 8.0L, Phosphorus Level 2.7 , Magnesium Level 1.4L, Total Bilirubin 0.3, Aspartate Amino Transf (AST/SGOT) 23, Alanine Aminotransferase (ALT/SGPT) 10L, Alkaline Phosphatase 61, C- Reactive Protein, Quantitative 2.1H, Total Protein 6.5, Albumin 1.8L, Globulin 4.7, Albumin/Globulin Ratio 0.4L, Lipase 249 Height (Feet): 6 Height (Inches): 1.00 Weight (Pounds): 190 General Appearance: no apparent distress Objective no change Zander Razo MD Mar 11, 2019 15:17
--- NOTE | 2019-03-11 15:32 | Pulmonology Progress Note ---
Assessment/Plan Problems: (1) Sepsis (2) COPD (chronic obstructive pulmonary disease) (3) Nausea vomiting and diarrhea (4) HCAP (healthcare-associated pneumonia) (5) BPH (benign prostatic hyperplasia) (6) Hypertension (7) HIV disease (8) COPD exacerbation Assessment/Plan wbc still elevated and rising HIV result noted, CD4 180 respiratory treatment on Cefepime and flagyl and bacrim hemodynamically stable stool for Cdiff was negative 6 days ago, repeat again on vanco PO titrate fio2 to sat of 92% med/surg pt/ot Subjective ROS Limited/Unobtainable: No Constitutional: Reports: no symptoms HEENT: Repors: no symptoms Allergies: Coded Allergies: No Known Allergies (Unverified , 03/02/19) Objective Last 24 Hour Vital Signs Date Time Temp Pulse Resp B/P (MAP) Pulse Ox O2 Delivery O2 Flow Rate FiO2 03/11/19 12:02 96.6 98 20 143/79 (100) 100 03/11/19 08:20 Room Air 03/11/19 08:00 98.4 96 16 150/87 (108) 100 03/11/19 04:00 98.0 93 20 126/77 (93) 97 03/11/19 00:00 98.4 89 20 132/84 (100) 96 03/10/19 21:00 Nasal Cannula 2.0 03/10/19 20:00 98.2 90 20 149/80 (103) 98 03/10/19 16:00 97.9 89 18 118/73 (88) 99 Intake and Output 03/10/19 03/11/19 19:00 07:00 Intake Total 1255 ml 2110 ml Output Total 550 ml Balance 1255 ml 1560 ml Intake Oral 800 ml IV Total 55 ml 110 ml Other 1200 ml 1200 ml Output Urine Total 550 ml # Voids 1 # Bowel Movements 1 Objective General Appearance: cachetic HEENT: normocephalic, atraumatic Respiratory/Chest: chest wall non-tender, normal breath sounds Cardiovascular: normal rate, regular rhythm Abdomen: normal bowel sounds, soft, non tender Genitourinary: normal external genitalia Extremities: no cyanosis Skin: no rash, no lesions Microbiology Date/Time Source Procedure Growth Status 03/09/19 16:00 Stool Clostridium difficile Toxin Assay - Final Complete Laboratory Tests 03/10/19 16:00: Urine Color Yellow, Urine Appearance Clear, Urine pH 6, Urine Specific [place] 1.015, Urine Protein 2+H, Urine Glucose (UA) Negative, Urine Ketones 1+H, Urine Blood 1+H, Urine Nitrite Negative, Urine Bilirubin Negative, Urine Urobilinogen Normal, Urine Leukocyte Esterase 1+H, Urine RBC 5-10H, Urine WBC 2-4, Urine Squamous Epithelial Cells None, Urine Bacteria Few 03/11/19 06:10: White Blood Count 15.7H, Red Blood Count 3.42L, Hemoglobin 9.4L, Hematocrit 28.2L, Mean Corpuscular Volume 83, Mean Corpuscular Hemoglobin 27.5, Mean Corpuscular Hemoglobin Concent 33.4, Red Cell Distribution Width 16.5H, Platelet Count 280, Mean Platelet Volume 5.8L, Neutrophils (%) (Auto) 58.4, Lymphocytes (%) (Auto) 25.5, Monocytes (%) (Auto) 9.9, Eosinophils (%) (Auto) 5.1H, Basophils (%) (Auto) 1.2, Erythrocyte Sedimentation Rate 87H, Sodium Level 131L, Potassium Level 4.4, Chloride Level 105, Carbon Dioxide Level 21, Anion Gap 5, Blood Urea Nitrogen 7, Creatinine 0.8, Estimat Glomerular Filtration Rate > 60, Glucose Level 91, Calcium Level 8.0L, Phosphorus Level 2.7 , Magnesium Level 1.4L, Total Bilirubin 0.3, Aspartate Amino Transf (AST/SGOT) 23, Alanine Aminotransferase (ALT/SGPT) 10L, Alkaline Phosphatase 61, C- Reactive Protein, Quantitative 2.1H, Total Protein 6.5, Albumin 1.8L, Globulin 4.7, Albumin/Globulin Ratio 0.4L, Lipase 249 Current Medications Medications (Trade) Dose Ordered Sig/Deborah Route PRN Reason Start Time Stop Time Status Last Admin Dose Admin Acetaminophen (Tylenol) 650 mg Q4H PRN ORAL Mild Pain/Temp > 100.5 03/06/19 08:15 04/01/19 08:14 Barium Sulfate (Readi-Cat 2) 450 ml NOW PRN ORAL Radiology Procedure 03/10/19 13:30 03/12/19 13:30 Cefepime HCl 1 gm/ Dextrose 55 ml @ 110 mls/hr EVERY 12 HOURS IVPB 03/06/19 09:00 03/15/19 23:59 03/11/19 08:21 Diatrizoate Meglum/ Diatrizoate Sod (Gastrografin) 30 ml NOW PRN ORAL Radiology Procedure 03/10/19 13:30 03/12/19 13:29 Diphenoxylate HCl/ Atropine (Lomotil) 2.5 mg Q4H PRN ORAL Diarrhea 03/09/19 12:30 04/08/19 12:29 Iohexol (OMNIPAQUE-300 100ml) 100 ml NOW PRN INJ Radiology Procedure 03/10/19 13:30 03/12/19 13:30 Loperamide HCl (Imodium) 2 mg Q4H PRN ORAL Diarrhea 03/06/19 13:45 04/05/19 13:44 03/09/19 13:48 Magnesium Oxide (Mag-Ox 400mg) 400 mg THREE TIMES A DAY ORAL 03/11/19 18:00 04/10/19 17:59 Magnesium Sulfate 100 ml @ 100 mls/hr Q1H IVPB 03/11/19 15:15 03/11/19 19:14 Metronidazole (Flagyl) 500 mg Q8HR ORAL 03/08/19 22:00 03/15/19 23:59 03/11/19 13:12 Ondansetron HCl (Zofran) 4 mg Q4H PRN IVP Nausea & Vomiting 03/06/19 08:15 04/01/19 08:14 Pantoprazole (Protonix) 40 mg DAILY ORAL 03/07/19 09:00 04/03/19 20:59 03/11/19 10:40 Sodium Chloride 250 ml @ 30 mls/hr ONCE ONCE IV 03/11/19 17:00 03/12/19 01:19 Tamsulosin HCl (Flomax) 0.4 mg BID ORAL 03/06/19 09:00 04/02/19 08:59 03/11/19 10:40 Trimethoprim/ Sulfamethoxazole (Bactrim-DS) 1 tab Q12HR ORAL 03/06/19 21:00 03/13/19 20:59 03/11/19 10:40 Vancomycin HCl (Firvanq) 125 mg FOUR TIMES A DAY ORAL 03/09/19 18:00 03/16/19 17:59 03/11/19 13:12 Rico Chavarria MD Mar 11, 2019 15:32
[2019-03-11 16:10] VITALS: BP 118/71
[2019-03-11] MEDS: Magnesium Oxide 400mg tab ORAL SCH (17:32)
[2019-03-11] MEDS ORDERED: NaCl 3% 500ml 250 ML IV ONE (19:00)
--- NOTE | 2019-03-11 19:08 | NUR ---
HAND-OFF: Report given to ANJEL SANCHEZ, resting comfortably in bed, no sign of distress, on going magnesium IV, endorsed to incoming nurse accordingly. anjel diaz
[2019-03-11] MEDS ORDERED: HYDROcodone/Acetamin 5/325 tab ORAL PRN (19:15)
[2019-03-11] MEDS ORDERED: Morphine Sulfate 2mg/ml Inj(IV/IM USE ONLY) IVP PRN (19:15)
--- NOTE | 2019-03-11 19:48 | NUR ---
NURSE NOTES: Received patient awake, alert, verbal, resting in bed comfortably without complaints.
[2019-03-11 20:00] VITALS: BP 117/66
[2019-03-12] VITALS (7 sets, daily range): BP systolic 118–144; BP diastolic 61–79
[2019-03-12] MEDS: metroNIDAZOLE 500mg tab ORAL SCH ×2 (05:33→14:00)
--- NOTE | 2019-03-12 07:24 | NUR ---
HAND-OFF: Report given to Drew Benavides RN.
--- NOTE | 2019-03-12 07:30 | NUR ---
NURSE NOTES: Received pt from ANJEL SANCHEZ. pt is awake A&O X4. Pt has NC 2LMP. pt has intact iv access RH 24G SL. Pt is eating breakfast by observation. No complain of pain at this moment. all needs attended, bed is locked and is in the lowest position, call light within easy reach. will continue to monitor.
[2019-03-12] MEDS: Magnesium Oxide 400mg tab ORAL SCH ×4 (08:41→17:57)
[2019-03-12] MEDS: Cefepime HCl 1 GM in D5W 55 ML IVPB SCH ×2 (08:41→20:18)
[2019-03-12] MEDS: Vancomycin oral 125mg/2.5ml ORAL SCH ×5 (08:41→21:00)
[2019-03-12] MEDS: Bactrim-DS 1 tab ORAL SCH ×3 (08:42→21:00)
[2019-03-12] MEDS: Tamsulosin 0.4mg cap ORAL SCH ×3 (08:42→17:57)
--- NOTE | 2019-03-12 09:00 | NUR ---
NURSE NOTES: pt refused all po meds x3 attempts, explained risks and benefits. Dr Chavarria notified, no new order to RN. Pt asked pain med, RN pulled out morphin but pt refused, morphine returned to pexis again. will continue to monitor.
--- NOTE | 2019-03-12 11:30 | NUR ---
NURSE NOTES: pt came baCK FROM ct, pT IS AWAKE AND STABLE. WILL CONTINUE TO MONITOR. Addendum: 03/12/19 at 1147 by Drew Dickson RN ERROR, WRONG PT.
--- NOTE | 2019-03-12 11:59 | Infectious Diseases Prog Note ---
Assessment/Plan Assessment/Plan 63yo man admitted with abdominal pain and diarrhea. Fever, SP Leukocytosis, fluctuaging Lactic acidosis, SP diarrhea/colitis 03/11 CT: Trace bilateral pleural effusions. Associated atelectasis. Prominent wall thickening of the entire colon and rectum is concerning for pancolitis and proctitis. Fluid and gas-filled small bowel loops could represent an element of ileus or enteritis. Moderate to large amount of ascites. Anasarca. Wall thickening of the bladder is nonspecific. Please correlate with urinalysis to evaluate for cystitis. 03/02 CT: Suspected colitis with the thickening of the wall the colon. Correlate clinically. Thickening of the wall the urinary bladder. Correlate for cystitis. C diff negative x2 stool cx negative stool o/p x1 negative it appears pt had an episode of diarrhea/colitis back in January as well. Dx with UTI and given cipro. Then had C diff 02/15...pending record from [place] whether this was treated given recurrent diarrhea, recommend colonoscopy but pt refused. pt also has been refusing other care(ie/ PT, physical exams). will not answer questions about travel, diet or epidemiological risk factors saying "woman, you ask too many questions. leave me alone." Pt has history of diarrhea 02/08/19 and was hospitalized at [facility] and dx with IBD without flare 02/07 CT: pulm emphysema, atelectasis at lung bases, unchanged circumferential bladder wall thickening, nonspecific. diffuse thickening of the wall of hepatic flexure and ascending colon. indicate inflammatory bowel disease or ischemia. severe degenerative changes of hips. unlikely UTI UA pos UCx Staph, likely colonizer HIV Screen positive- new diagnosis HIV-1 Abt positive. 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 / CD4 180 (7.2%) RPR negative stool o/p negative x1 CMV colitis unlikely given CD4 count discussed lab result with patient, he is in denial stating that he does not have HIV and that the hospital gave him HIV pt is not interested in starting medication at this time offered to provide more information including treatment options and prognosis but pt declined CXR: Bibasilar pneumonitis and atelectasis/scarring. Pulmonary emphysema. 1. COPD. 2. Hypertension. 3. BPH. 4. History of cocaine abuse in the past. 5. Bedbound. PLAN: continue cefepime and flagyl #03/01. Bactrim DS BID #7/10 for cyclospora and isospora. Vanc PO #4/10 given pt recently had pos PCR, Mary only has toxin test monitor CBC, temp f/u bcx f/u Entamoeba, Giardia, stool AFB, urine histoplasma, gonorrhea chlamydia NAAT, urine and rectum O+p x2, microscoporidium, HIV genotype, AFB b cxx pt must follow up with PMD/HIV specialist once discharged recommend colonoscopy to rule out noninfectious etiology of diarrhea: IBD, Kaposi's Thank you, Dr. Martel, for allowing me to participate in the care of this patient. I will follow the patient with you during this admission. Subjective Allergies: Coded Allergies: No Known Allergies (Unverified , 03/02/19) Subjective afebrile wbc fluctuating bt 15-16, no cbc today Objective Vital Signs Last 24 Hour Vital Signs Date Time Temp Pulse Resp B/P (MAP) Pulse Ox O2 Delivery O2 Flow Rate FiO2 03/12/19 09:00 Room Air 03/12/19 08:00 98.6 86 19 118/61 (80) 98 03/12/19 04:00 98.2 92 19 120/65 (83) 97 03/12/19 00:00 98.2 96 19 123/74 (90) 97 03/11/19 20:51 Room Air 03/11/19 20:00 98.2 103 20 117/66 (83) 97 03/11/19 16:10 98.3 93 18 118/71 (87) 96 03/11/19 12:02 96.6 98 20 143/79 (100) 100 Height (Feet): 6 Height (Inches): 1.00 Weight (Pounds): 190 Objective HEENT: No pale conjunctivae. No icterus. NECK: No lymphadenopathy. CHEST: Coarse breathing sounds. HEART: S1 and S2. Abd: refused exam EXTREMITIES: No cellulitis or cyanosis. SKIN: Stage III decubitus in the sacral area Microbiology Date/Time Source Procedure Growth Status 03/09/19 16:00 Stool Clostridium difficile Toxin Assay - Final Complete Laboratory Tests Test 03/12/19 01:30 Histoplasma Antigen Pending Current Medications Medications (Trade) Dose Ordered Sig/Deborah Route PRN Reason Start Time Stop Time Status Last Admin Dose Admin Acetaminophen (Tylenol) 650 mg Q4H PRN ORAL Mild Pain/Temp > 100.5 03/06/19 08:15 04/01/19 08:14 Acetaminophen/ Hydrocodone Bitart ([place] 5/325) 1 tab Q4H PRN ORAL Moderate Pain (Pain Scale 4-6) 03/11/19 19:15 03/18/19 19:14 Barium Sulfate (Readi-Cat 2) 450 ml NOW PRN ORAL Radiology Procedure 03/10/19 13:30 03/12/19 13:30 Cefepime HCl 1 gm/ Dextrose 55 ml @ 110 mls/hr EVERY 12 HOURS IVPB 03/06/19 09:00 03/15/19 23:59 03/12/19 08:41 Diatrizoate Meglum/ Diatrizoate Sod (Gastrografin) 30 ml NOW PRN ORAL Radiology Procedure 03/10/19 13:30 03/12/19 13:29 Diphenoxylate HCl/ Atropine (Lomotil) 2.5 mg Q4H PRN ORAL Diarrhea 03/09/19 12:30 04/08/19 12:29 Iohexol (OMNIPAQUE-300 100ml) 100 ml NOW PRN INJ Radiology Procedure 03/10/19 13:30 03/12/19 13:30 Loperamide HCl (Imodium) 2 mg Q4H PRN ORAL Diarrhea 03/06/19 13:45 04/05/19 13:44 03/09/19 13:48 Magnesium Oxide (Mag-Ox 400mg) 400 mg THREE TIMES A DAY ORAL 03/11/19 18:00 04/10/19 17:59 03/11/19 17:32 Metronidazole (Flagyl) 500 mg Q8HR ORAL 03/08/19 22:00 03/15/19 23:59 03/12/19 05:33 Morphine Sulfate (Morphine Sulfate) 2 mg Q4H PRN IVP Severe Pain (Pain Scale 7-10) 03/11/19 19:15 03/18/19 19:14 Ondansetron HCl (Zofran) 4 mg Q4H PRN IVP Nausea & Vomiting 03/06/19 08:15 04/01/19 08:14 Pantoprazole (Protonix) 40 mg DAILY ORAL 03/07/19 09:00 04/03/19 20:59 03/11/19 10:40 Tamsulosin HCl (Flomax) 0.4 mg BID ORAL 03/06/19 09:00 04/02/19 08:59 03/11/19 17:32 Trimethoprim/ Sulfamethoxazole (Bactrim-DS) 1 tab Q12HR ORAL 03/06/19 21:00 03/13/19 20:59 03/11/19 20:31 Vancomycin HCl (Firvanq) 125 mg FOUR TIMES A DAY ORAL 03/09/19 18:00 03/16/19 17:59 03/11/19 20:31 Christine Diaz M.D. Mar 12, 2019 11:59
--- NOTE | 2019-03-12 13:10 | NUR ---
CHARGE NURSE NOTE: Had a long conversation with patient. Pt refuses to take his PO and IV meds, telling that "they make me sick", and does not want to draw his blood anymore. Spoke with and notified her.
--- NOTE | 2019-03-12 13:15 | GI Progress Note ---
Assessment/Plan Problems: (1) Diarrhea ICD Codes: R19.7 - Diarrhea, unspecified SNOMED: 03740404 (2) Colitis ICD Codes: K52.9 - Noninfective gastroenteritis and colitis, unspecified SNOMED: 29496505, 513499268 Status: unchanged Status Narrative Discussed with Dr. Interiano. Assessment/Plan This is a 63-year-old male patient who presents to the emergency room with abdominal pain and complaint of diarrhea secondary to suspected colitis seen on CT scan. OB stool negative C. difficile negative stool culture negative KUB reviewed - No definite acute process. Nonspecific bowel gas pattern. - Markedly abnormal bilateral hips as described. Could represent sequelae of process such as old bilateral avascular necrosis with resultant secondary degenerative change, lung other possibilities APCT reviewed IMPRESSION: 1. Trace bilateral pleural effusions. Associated atelectasis. 2. Prominent wall thickening of the entire colon and rectum is concerning for pancolitis and proctitis. 3. Fluid and gas-filled small bowel loops could represent an element of ileus or enteritis. 4. Moderate to large amount of ascites. 5. Anasarca. 6. Wall thickening of the bladder is nonspecific. Please correlate with urinalysis to evaluate for cystitis. patient refused colonoscopy again hold stool softeners and laxatives abx per ID PPI IV and p.o. hydration plus electrolyte correction Zofran as needed Pain management Outpatient colonoscopy if patient agrees neg stool ob x1 The patient was seen and examined at bedside and all new and available data was reviewed in the patients chart. I agree with the above findings, impression and plan. (Patient seen earlier today. Signature stamp does not reflect patient encounter time.). - Mansoor Interiano MD Subjective Subjective Patient still complains of diarrhea Refusing colonoscopy, acknowledge taking some recent CT scan Denies any abdominal pain Denies any nausea vomiting Objective Last 24 Hour Vital Signs Date Time Temp Pulse Resp B/P (MAP) Pulse Ox O2 Delivery O2 Flow Rate FiO2 03/12/19 12:00 98.8 78 17 119/68 (85) 98 03/12/19 09:00 Room Air 03/12/19 08:00 98.6 86 19 118/61 (80) 98 03/12/19 04:00 98.2 92 19 120/65 (83) 97 03/12/19 00:00 98.2 96 19 123/74 (90) 97 03/11/19 20:51 Room Air 03/11/19 20:00 98.2 103 20 117/66 (83) 97 03/11/19 16:10 98.3 93 18 118/71 (87) 96 Intake and Output 03/11/19 03/12/19 18:59 06:59 Intake Total 355 ml 2305 ml Output Total 550 ml 450 ml Balance -195 ml 1855 ml Intake Oral 800 ml IV Total 355 ml 305 ml Other 1200 ml Output Urine Total 550 ml 450 ml # Voids 2 2 # Bowel Movements 1 Laboratory Tests Test 03/12/19 01:30 Histoplasma Antigen Pending Height (Feet): 6 Height (Inches): 1.00 Weight (Pounds): 190 General Appearance: WD/WN, no apparent distress, alert Cardiovascular: normal rate Respiratory/Chest: normal breath sounds, no respiratory distress Abdominal Exam: normal bowel sounds, non tender, soft Extremities: non-tender Leonides Mcelroy NP Mar 12, 2019 13:14
--- NOTE | 2019-03-12 13:39 | Nephrology Progress Note ---
Assessment/Plan Problem List: (1) Hyponatremia (2) HIV disease (3) Colitis (4) Sepsis (5) BPH (benign prostatic hyperplasia) Assessment HypoNatremia: Etiology? depletional Other Dx: sepsis ( leukocytosis, fever, lactic acidosis, evidence of infection) colitis elevated troponin r/o ACS vs demand ischemia tachycardia dehydration + HIV asymptomatic bacteriuria /? UTI with MRSA- hx of HTN COPD BPH sacral decub st 3 POA anemia severe hypo Mg , likely due to diarrhea Plan No labs today previously Mag IV 3% Saline as needed IV K supplement as needed Protonix monitor lytes per orders Subjective ROS Limited/Unobtainable: No Objective Objective Last 24 Hour Vital Signs Date Time Temp Pulse Resp B/P (MAP) Pulse Ox O2 Delivery O2 Flow Rate FiO2 03/12/19 12:00 98.8 78 17 119/68 (85) 98 03/12/19 09:00 Room Air 03/12/19 08:00 98.6 86 19 118/61 (80) 98 03/12/19 04:00 98.2 92 19 120/65 (83) 97 03/12/19 00:00 98.2 96 19 123/74 (90) 97 03/11/19 20:51 Room Air 03/11/19 20:00 98.2 103 20 117/66 (83) 97 03/11/19 16:10 98.3 93 18 118/71 (87) 96 Intake and Output 03/11/19 03/12/19 18:59 06:59 Intake Total 355 ml 2305 ml Output Total 550 ml 450 ml Balance -195 ml 1855 ml Intake Oral 800 ml IV Total 355 ml 305 ml Other 1200 ml Output Urine Total 550 ml 450 ml # Voids 2 2 # Bowel Movements 1 Laboratory Tests 03/12/19 01:30: Histoplasma Antigen [Pending] Height (Feet): 6 Height (Inches): 1.00 Weight (Pounds): 190 General Appearance: no apparent distress Objective no change Zander Razo MD Mar 12, 2019 13:39
--- NOTE | 2019-03-12 14:46 | Pulmonology Progress Note ---
Assessment/Plan Problems: (1) Sepsis (2) COPD (chronic obstructive pulmonary disease) (3) Nausea vomiting and diarrhea (4) HCAP (healthcare-associated pneumonia) (5) BPH (benign prostatic hyperplasia) (6) Hypertension (7) HIV disease (8) COPD exacerbation Assessment/Plan wbc still elevated and rising HIV result noted, CD4 180 respiratory treatment on Cefepime and flagyl and bacrim hemodynamically stable stool for Cdiff was negative 6 days ago, repeat again on vanco PO titrate fio2 to sat of 92% med/surg pt/ot Subjective ROS Limited/Unobtainable: No Constitutional: Reports: no symptoms HEENT: Repors: no symptoms Respiratory: Reports: no symptoms Allergies: Coded Allergies: No Known Allergies (Unverified , 03/02/19) Objective Last 24 Hour Vital Signs Date Time Temp Pulse Resp B/P (MAP) Pulse Ox O2 Delivery O2 Flow Rate FiO2 03/12/19 12:00 98.8 78 17 119/68 (85) 98 03/12/19 09:00 Room Air 03/12/19 08:00 98.6 86 19 118/61 (80) 98 03/12/19 04:00 98.2 92 19 120/65 (83) 97 03/12/19 00:00 98.2 96 19 123/74 (90) 97 03/11/19 20:51 Room Air 03/11/19 20:00 98.2 103 20 117/66 (83) 97 03/11/19 16:10 98.3 93 18 118/71 (87) 96 Intake and Output 03/11/19 03/12/19 18:59 06:59 Intake Total 355 ml 2305 ml Output Total 550 ml 450 ml Balance -195 ml 1855 ml Intake Oral 800 ml IV Total 355 ml 305 ml Other 1200 ml Output Urine Total 550 ml 450 ml # Voids 2 2 # Bowel Movements 1 Objective General Appearance: cachetic HEENT: normocephalic, atraumatic Respiratory/Chest: chest wall non-tender, normal breath sounds Cardiovascular: normal rate, regular rhythm Abdomen: normal bowel sounds, soft, non tender Genitourinary: normal external genitalia Extremities: no cyanosis Skin: no rash, no lesions Microbiology Date/Time Source Procedure Growth Status 03/09/19 16:00 Stool Clostridium difficile Toxin Assay - Final Complete Laboratory Tests 03/12/19 01:30: Histoplasma Antigen [Pending] Current Medications Medications (Trade) Dose Ordered Sig/Deborah Route PRN Reason Start Time Stop Time Status Last Admin Dose Admin Acetaminophen (Tylenol) 650 mg Q4H PRN ORAL Mild Pain/Temp > 100.5 03/06/19 08:15 04/01/19 08:14 Acetaminophen/ Hydrocodone Bitart ([place] 5/325) 1 tab Q4H PRN ORAL Moderate Pain (Pain Scale 4-6) 03/11/19 19:15 03/18/19 19:14 Cefepime HCl 1 gm/ Dextrose 55 ml @ 110 mls/hr EVERY 12 HOURS IVPB 03/06/19 09:00 03/15/19 23:59 03/12/19 08:41 Diphenoxylate HCl/ Atropine (Lomotil) 2.5 mg Q4H PRN ORAL Diarrhea 03/09/19 12:30 04/08/19 12:29 Loperamide HCl (Imodium) 2 mg Q4H PRN ORAL Diarrhea 03/06/19 13:45 04/05/19 13:44 03/09/19 13:48 Magnesium Oxide (Mag-Ox 400mg) 400 mg THREE TIMES A DAY ORAL 03/11/19 18:00 04/10/19 17:59 03/11/19 17:32 Metronidazole (Flagyl) 500 mg Q8HR ORAL 03/08/19 22:00 03/15/19 23:59 03/12/19 05:33 Morphine Sulfate (Morphine Sulfate) 2 mg Q4H PRN IVP Severe Pain (Pain Scale 7-10) 03/11/19 19:15 03/18/19 19:14 Ondansetron HCl (Zofran) 4 mg Q4H PRN IVP Nausea & Vomiting 03/06/19 08:15 04/01/19 08:14 Pantoprazole (Protonix) 40 mg DAILY ORAL 03/07/19 09:00 04/03/19 20:59 03/11/19 10:40 Tamsulosin HCl (Flomax) 0.4 mg BID ORAL 03/06/19 09:00 04/02/19 08:59 03/11/19 17:32 Trimethoprim/ Sulfamethoxazole (Bactrim-DS) 1 tab Q12HR ORAL 03/06/19 21:00 03/13/19 20:59 03/11/19 20:31 Vancomycin HCl (Firvanq) 125 mg FOUR TIMES A DAY ORAL 03/09/19 18:00 03/16/19 17:59 03/11/19 20:31 Rico Chavarria MD Mar 12, 2019 14:46
--- NOTE | 2019-03-12 15:06 | NUR ---
DISCHARGE PLANNING PATIENT HAS BEEN ACCEPTED BACK TO [facility] ROOM [address] T: [phone] *WAITING FOR DISCHARGE ORDER
[2019-03-12] MEDS: metroNIDAZOLE 500mg Premix IVPB SCH ×2 (15:41→21:04)
--- NOTE | 2019-03-12 17:17 | NUR ---
CHARGE NURSE NOTE: Pt is refusing a blood draw (stat) orders. notified.
--- NOTE | 2019-03-12 18:32 | Internal Med Progress Note ---
Subjective Date of Service: Mar 12, 2019 Physician Name Amauri Mera Attending Physician Oscar Martel MD Current Medications Medications (Trade) Dose Ordered Sig/Deborah Route PRN Reason Start Time Stop Time Status Last Admin Dose Admin Acetaminophen (Tylenol) 650 mg Q4H PRN ORAL Mild Pain/Temp > 100.5 03/06/19 08:15 04/01/19 08:14 Acetaminophen/ Hydrocodone Bitart ([place] 5/325) 1 tab Q4H PRN ORAL Moderate Pain (Pain Scale 4-6) 03/11/19 19:15 03/18/19 19:14 Cefepime HCl 1 gm/ Dextrose 55 ml @ 110 mls/hr EVERY 12 HOURS IVPB 03/06/19 09:00 03/15/19 23:59 03/12/19 08:41 Diphenoxylate HCl/ Atropine (Lomotil) 2.5 mg Q4H PRN ORAL Diarrhea 03/09/19 12:30 04/08/19 12:29 Loperamide HCl (Imodium) 2 mg Q4H PRN ORAL Diarrhea 03/06/19 13:45 04/05/19 13:44 03/09/19 13:48 Magnesium Oxide (Mag-Ox 400mg) 400 mg THREE TIMES A DAY ORAL 03/11/19 18:00 04/10/19 17:59 03/11/19 17:32 Metronidazole 100 ml @ 100 mls/hr Q8HR IVPB 03/12/19 15:30 03/19/19 15:29 03/12/19 15:41 Morphine Sulfate (Morphine Sulfate) 2 mg Q4H PRN IVP Severe Pain (Pain Scale 7-10) 03/11/19 19:15 03/18/19 19:14 Ondansetron HCl (Zofran) 4 mg Q4H PRN IVP Nausea & Vomiting 03/06/19 08:15 04/01/19 08:14 Pantoprazole (Protonix) 40 mg DAILY ORAL 03/07/19 09:00 04/03/19 20:59 03/11/19 10:40 Tamsulosin HCl (Flomax) 0.4 mg BID ORAL 03/06/19 09:00 04/02/19 08:59 03/11/19 17:32 Trimethoprim/ Sulfamethoxazole (Bactrim-DS) 1 tab Q12HR ORAL 03/06/19 21:00 03/13/19 20:59 03/11/19 20:31 Vancomycin HCl (Firvanq) 125 mg FOUR TIMES A DAY ORAL 03/09/19 18:00 03/16/19 17:59 03/11/19 20:31 Allergies: Coded Allergies: No Known Allergies (Unverified , 03/02/19) ROS Limited/Unobtainable: No Constitutional: Reports: no symptoms HEENT: Reports: no symptoms Cardiovascular: Reports: no symptoms Respiratory: Reports: no symptoms Gastrointestinal/Abdominal: Reports: no symptoms Genitourinary: Reports: no symptoms Neurologic/Psychiatric: Reports: no symptoms Subjective 63 YO M admitted with abdominal pain, nausea and vomiting. Now Colitis and elevated troponin. HIV positive. Cover for Int Med-Dr Martel Objective Last Vital Signs Date Time Temp Pulse Resp B/P (MAP) Pulse Ox O2 Delivery O2 Flow Rate FiO2 03/12/19 15:56 97.8 81 18 125/79 (94) 97 03/12/19 09:00 Room Air 03/10/19 21:00 2.0 Laboratory Tests Test 03/12/19 01:30 03/12/19 17:20 Histoplasma Antigen Pending Microsporidia Identification Pending Intake and Output 03/11/19 03/12/19 19:00 07:00 Intake Total 355 ml 2305 ml Output Total 550 ml 450 ml Balance -195 ml 1855 ml Intake Oral 800 ml IV Total 355 ml 305 ml Other 1200 ml Output Urine Total 550 ml 450 ml # Voids 2 2 # Bowel Movements 1 Objective PHYSICAL EXAMINATION: GENERAL: The patient is awake, responsive, no acute distress, but chronically cachectic and malnutrition. HEAD AND NECK: Pupils are equal and reactive to light. Extraocular movements intact. NECK: Supple. No JVD. LUNGS: Good air entry. No wheezing or rales. Decreased in bases. HEART: S1 and S2. Distant heart sounds. No murmur or gallops. ABDOMEN: Soft, mildly distended. No rebound tenderness. Generalized tenderness. RECTAL: Refused and deferred. GENITOURINARY: Refused and deferred. PSYCHIATRIC: Mood and affect intact. Gait was not assessed due to the patient's status. SKIN: Full thickness stage III pressure ulcer in the sacrum was noted presented on admission. NEUROLOGIC: Cranial nerves II through XII grossly intact. The patient moving all extremities. Lower extremities weaker than upper extremity and tender to touch in the lower extremity. Assessment/Plan Assessment/Plan ASSESSMENT: 1. Mild elevation of troponin, possible acute myocardial infarction versus demand ischemia. 2. Severe dehydration with hypovolemia. 3. Anemia most likely secondary to the intra-abdominal infection. 4. Colitis. 5. BPH. 6. Hypertension presently hypotensive. 7. COPD. 8. Hyponatremia. 9. Pressure ulcer stage III sacrum present on admission. 10. Acute urinary tract infection. 11. HIV preliminary positive PLAN: 1. Admit the patient to med/surg See cardiology consult=Dr Salas 2. Continue cefepime and Flagyl per ID. See GI consult=Dr Interiano 3. Dr. Chavarria from Pulmonary Critical Care 4. Dr. Romero from General surgery. 5. Dr Ramírez= wound care of the sacral ulcer. 6. HIV pos=ID consult=Dr Carroll. Await HIV viral load= 77915; JW1=939 7. Hyponatremia-See nephrology note=Dr Razo Monitor laboratory as well as cultures. Code status Full code. DVT prophylaxis with heparin subcutaneous. Amauri Mera MD Mar 12, 2019 18:32
--- NOTE | 2019-03-12 18:39 | Surgery Progress Note ---
Surgery Progress Note Subjective Symptoms: pain absent, tolerating diet, voiding well, passing flatus, BM Additional Comments I had a long discussion with patient at bedside this AM. explained CT findings , history, current medical condition and recommendation of colonoscopy. patient refused prior and still refusing. discuss with GI and ID etiology of wbc likely colitis but etiology of colitis unknown. would recommend scope to further evaluation Objective Last 24 Hour Vital Signs Date Time Temp Pulse Resp B/P (MAP) Pulse Ox O2 Delivery O2 Flow Rate FiO2 03/12/19 15:56 97.8 81 18 125/79 (94) 97 03/12/19 12:00 98.8 78 17 119/68 (85) 98 03/12/19 09:00 Room Air 03/12/19 08:00 98.6 86 19 118/61 (80) 98 03/12/19 04:00 98.2 92 19 120/65 (83) 97 03/12/19 00:00 98.2 96 19 123/74 (90) 97 03/11/19 20:51 Room Air 03/11/19 20:00 98.2 103 20 117/66 (83) 97 I&O Intake and Output 03/11/19 03/12/19 19:00 07:00 Intake Total 355 ml 2305 ml Output Total 550 ml 450 ml Balance -195 ml 1855 ml Intake Oral 800 ml IV Total 355 ml 305 ml Other 1200 ml Output Urine Total 550 ml 450 ml # Voids 2 2 # Bowel Movements 1 Cardiovascular: RSR Respiratory: clear Abdomen: soft, non-tender, present bowel sounds Extremities: no cyanosis Laboratory Tests Test 03/12/19 01:30 03/12/19 17:20 Histoplasma Antigen Pending Microsporidia Identification Pending Plan Problems: (1) Decubitus skin ulcer Assessment & Plan: Pt presented on admission with multiple pressure injuries. Blood blisters to ezequiel R tibia and medial L tibia. Full Thickness stage 3 pressure injury Sacrum . Base of wound 60% biofilm,40% viable. Edges are macerated bordered by black and fluctuant base with additional wounds at R sacrum. No odor or exudate noted. Pt complained of pain at site when in supine. Rigidity noted to both lower extremities and pt heels are in continuously in contact. DTPI noted to medial R heel . Base of wound with purple with maroon borders and fluctuant at base (L)4cm x (W)4cm .Periwound R heel is boggy but blanchable. DTPI medial L heel . Base of wound is maroon with scattered purple areas and is fluctuant at base. Periwound L heel is boggy but blanchable. Tx.Plan: Cleanse Sacral wound with Saline. Apply Therahoney. Apply Moisture Barrier periwound. Cover with Optifoam drsg every 3 days and prn. Apply Cavilon Skin Barrier to blood blisters R and L tibia. Cover each wound with Optifoam drsg. Change every 7 days and prn. Apply Cavilon Skin Barrier to both heels. Cover each heel with Optifoam drsg. Change every 7 days and prn. APM/KRISTI Mattress overlay. Reposition at least every 2hours or as tolerated. Place pillow between lower ext to keep Heels apart. Off-load heels with pillow. (2) Colitis Assessment & Plan: Findings: Significant artifact limits evaluation. The lung bases notable for posterior basal atelectasis. Patchy groundglass opacities also noted nonspecific. Trace pericardial fluid demonstrated. No obvious hydronephrosis or stones identified. No obvious free fluid identified. Question of gallstones. Aortoiliac calcifications are present. There is thickening of the wall of the colon especially noted on the right side involving the ascending colon and cecum. Findings suspicious for colitis. Correlate clinically. There is thickening of the wall the urinary bladder. 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 Anasarca noted. IMPRESSION: Limited evaluation due to technical artifacts. Suspected colitis with the thickening of the wall the colon. Correlate clinically. Thickening of the wall the urinary bladder. Correlate for cystitis. -Seen by GI and recommended to have Colonoscopy but declined 1. Trace bilateral pleural effusions. Associated atelectasis. 2. Prominent wall thickening of the entire colon and rectum is concerning for pancolitis and proctitis. 3. Fluid and gas-filled small bowel loops could represent an element of ileus or enteritis. 4. Moderate to large amount of ascites. 5. Anasarca. 6. Wall thickening of the bladder is nonspecific. Please correlate with urinalysis to evaluate for cystitis. exam stable no n/v/f/c I had a long discussion with patient at bedside. explained CT findings, history , current medical condition and recommendation of colonoscopy. patient refused prior and still refusing. discuss with GI and ID etiology of wbc likely colitis but etiology of colitis unknown. would recommend scope to further evaluation will follow up with recs (3) Sepsis Assessment & Plan: febrile t max 104 - resolved leukocytosis lactic acidosis - resolved exam improved CT with colitis worse now likely etiology of sepsis cultures noted ABX as per ID OB stool negative C. difficile negative and repeat C. difficile negative stool culture negative KUB reviewed - No definite acute process. Nonspecific bowel gas pattern. - Markedly abnormal bilateral hips as described. Could represent sequelae of process such as old bilateral avascular necrosis with resultant secondary degenerative change, lung other possibilities improving Imaging labs ordered Still pending work-up of etiology leukocytosis though patient clinically improving will follow with exam and recs okay for diet (4) Nausea vomiting and diarrhea César Romero Mar 12, 2019 18:39
--- NOTE | 2019-03-12 19:20 | NUR ---
HAND-OFF: Report given to DANIEL HOBBS. Pt is awake and alert.
--- NOTE | 2019-03-12 19:41 | NUR ---
NURSE NOTES: Received patient awake, alert, verbal, resting in bed comfortably without complaints.
[2019-03-13 04:00] VITALS: BP 135/80
[2019-03-13] MEDS: metroNIDAZOLE 500mg Premix IVPB SCH ×3 (05:01→22:15)
--- NOTE | 2019-03-13 07:05 | NUR ---
HAND-OFF: Report given to [place] RN.
[2019-03-13 08:00] VITALS: BP 126/75
[2019-03-13] MEDS: Bactrim-DS 1 tab ORAL SCH (08:51)
[2019-03-13] MEDS: Vancomycin oral 125mg/2.5ml ORAL SCH ×4 (08:51→20:35)
[2019-03-13] MEDS: Cefepime HCl 1 GM in D5W 55 ML IVPB SCH ×2 (08:51→20:35)
[2019-03-13] MEDS: Tamsulosin 0.4mg cap ORAL SCH ×2 (08:52→18:00)
[2019-03-13] MEDS: Magnesium Oxide 400mg tab ORAL SCH ×3 (08:52→18:00)
--- NOTE | 2019-03-13 09:52 | NUR ---
RD ASSESSMENT & RECOMMENDATIONS SEE CARE ACTIVITY FOR COMPLETE ASSESSMENT DAILY ESTIMATED NEEDS: Needs based on Wound, bedbound/ 76kg 25-30 kcals/kg 7901-9880 total kcals 1.25-1.5 g protein/kg 95-114 g total protein 25-30 mL/kg 9067-9215 total fluid mLs NUTRITION DIAGNOSIS: * Increased kcal/prot needs R/T wound healing as evidenced by pt admitted w/ sacral stage 3 and BL heel DTPI wounds. * Altered GI function R/T suspected colitis seen as per CT scan as evidenced by persistent diarrheal episodes. CURRENT DIET:SOFT diet PO DIET RECOMMENDATIONS: Maintain soft diet ADDITIONAL RECOMMENDATIONS: * Calibrated bedscale wt for accurate CBW (w/ added P200 mattress + pump) * Wound healing: add MVI w/ min x1, Vit C 500mg QD ZnSO4 220mg QD x 10 days, Vasquez 1pkt BID * Ensure CLEAR BID + snacks BID w/ variable PO intake * Monitor lytes daily w/ diarrhea, replete as needed (low Na + mag) * Consider Probiotics
--- NOTE | 2019-03-13 10:29 | GI Progress Note ---
Assessment/Plan Problems: (1) Diarrhea ICD Codes: R19.7 - Diarrhea, unspecified SNOMED: 33702031 (2) Colitis ICD Codes: K52.9 - Noninfective gastroenteritis and colitis, unspecified SNOMED: 41908826, [id number] Status: unchanged Status Narrative Discussed with Dr. Interiano. Assessment/Plan This is a 63-year-old male patient who presents to the emergency room with abdominal pain and complaint of diarrhea secondary to suspected colitis seen on CT scan. OB stool negative C. difficile negative stool culture negative KUB reviewed - No definite acute process. Nonspecific bowel gas pattern. - Markedly abnormal bilateral hips as described. Could represent sequelae of process such as old bilateral avascular necrosis with resultant secondary degenerative change, lung other possibilities APCT reviewed 1. Trace bilateral pleural effusions. Associated atelectasis. 2. Prominent wall thickening of the entire colon and rectum is concerning for pancolitis and proctitis. 3. Fluid and gas-filled small bowel loops could represent an element of ileus or enteritis. 4. Moderate to large amount of ascites. 5. Anasarca. 6. Wall thickening of the bladder is nonspecific. Please correlate with urinalysis to evaluate for cystitis. patient refused colonoscopy. hold stool softeners and laxatives Imodium prn abx per ID PPI IV and p.o. hydration plus electrolyte correction Zofran as needed Pain management Outpatient colonoscopy if patient agrees neg stool ob x1 The patient was seen and examined at bedside and all new and available data was reviewed in the patients chart. I agree with the above findings, impression and plan. (Patient seen earlier today. Signature stamp does not reflect patient encounter time.). - Mansoor Interiano MD Subjective Subjective Patient still complains of diarrhea, wants antidiarrheals Refusing colonoscopy Denies any abdominal pain Denies any nausea vomiting Objective Last 24 Hour Vital Signs Date Time Temp Pulse Resp B/P (MAP) Pulse Ox O2 Delivery O2 Flow Rate FiO2 03/13/19 09:00 Room Air 03/13/19 08:00 97.7 89 19 126/75 (92) 97 03/13/19 04:00 98.0 86 19 135/80 (98) 100 03/12/19 23:38 98.2 85 18 132/79 (96) 98 03/12/19 20:01 Room Air 03/12/19 20:00 98.8 85 18 144/79 (100) 98 03/12/19 15:56 97.8 81 18 125/79 (94) 97 03/12/19 12:00 98.8 78 17 119/68 (85) 98 Intake and Output 03/12/19 03/13/19 19:00 07:00 Intake Total 155 ml 2255 ml Output Total 4 ml 454 ml Balance 151 ml 1801 ml Intake Oral 800 ml IV Total 155 ml 255 ml Other 1200 ml Output Urine Total 450 ml Stool Total 4 ml 4 ml # Voids 2 # Bowel Movements 1 Laboratory Tests Test 03/12/19 17:20 Microsporidia Identification Pending Height (Feet): 6 Height (Inches): 1.00 Weight (Pounds): 190 General Appearance: no apparent distress Cardiovascular: normal rate Respiratory/Chest: normal breath sounds, no respiratory distress Abdominal Exam: soft Leonides Mcelroy INSIDE STEWARD/STEWARDESS Mar 13, 2019 10:29
--- NOTE | 2019-03-13 11:34 | Infectious Diseases Prog Note ---
Assessment/Plan Assessment/Plan 63yo man admitted with abdominal pain and diarrhea. Fever, SP Leukocytosis, fluctuaging Lactic acidosis, SP diarrhea/colitis- r/o CMV colitis vs HIV enterocolitis vs other OI (ie MAC, parasitic) 03/11 CT: Trace bilateral pleural effusions. Associated atelectasis. Prominent wall thickening of the entire colon and rectum is concerning for pancolitis and proctitis. Fluid and gas-filled small bowel loops could represent an element of ileus or enteritis. Moderate to large amount of ascites. Anasarca. Wall thickening of the bladder is nonspecific. Please correlate with urinalysis to evaluate for cystitis. 03/02 CT: Suspected colitis with the thickening of the wall the colon. Correlate clinically. Thickening of the wall the urinary bladder. Correlate for cystitis. C diff negative x2 stool cx negative stool o/p x1 negative it appears pt had an episode of diarrhea/colitis back in January as well. Dx with UTI and given cipro. Then had C diff 02/15...pending record from [place] whether this was treated given recurrent diarrhea, recommend colonoscopy but pt refused. pt also has been refusing other care(ie/ PT, physical exams). will not answer questions about travel, diet or epidemiological risk factors saying "woman, you ask too many questions. leave me alone." Pt has history of diarrhea 02/08/19 and was hospitalized at [facility] and dx with IBD without flare 02/07 CT: pulm emphysema, atelectasis at lung bases, unchanged circumferential bladder wall thickening, nonspecific. diffuse thickening of the wall of hepatic flexure and ascending colon. indicate inflammatory bowel disease or ischemia. severe degenerative changes of hips. -Negative: E. histolytica ab, Echinococcus ab unlikely UTI UA pos UCx Staph, likely colonizer HIV Screen positive- new diagnosis HIV-1 Abt positive. 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 / CD4 180 (7.2%) RPR negative stool o/p negative x1 CMV colitis unlikely given CD4 count discussed lab result with patient, he is in denial stating that he does not have HIV and that the hospital gave him HIV pt is not interested in starting medication at this time offered to provide more information including treatment options and prognosis but pt declined CXR: Bibasilar pneumonitis and atelectasis/scarring. Pulmonary emphysema. 1. COPD. 2. Hypertension. 3. BPH. 4. History of cocaine abuse in the past. 5. Bedbound. PLAN: continue cefepime and flagyl #03/31. Switch Bactrim DS BID #10/25 to IV for cyclospora and isospora. Vanc PO #06/25 given pt recently had pos PCR, Mary only has toxin test ( patient refusing oral vancomycin) monitor CBC, temp f/u bcx f/u Entamoeba, Giardia, stool AFB, urine histoplasma, gonorrhea chlamydia NAAT, urine and rectum f/u O+p x2, microscoporidium, cyclospora/isospora, HIV genotype, AFB b cxx pt must follow up with PMD/HIV specialist once discharged recommend colonoscopy to rule out noninfectious etiology of diarrhea: IBD, Kaposi's; patient refusing Thank you, Dr. Martel, for allowing me to participate in the care of this patient. I will follow the patient with you during this admission. Subjective Allergies: Coded Allergies: No Known Allergies (Unverified , 03/02/19) Subjective afebrile wbc fluctuating bt 15-16, no cbc today refusing oral antibiotics Objective Vital Signs Last 24 Hour Vital Signs Date Time Temp Pulse Resp B/P (MAP) Pulse Ox O2 Delivery O2 Flow Rate FiO2 03/13/19 09:00 Room Air 03/13/19 08:00 97.7 89 19 126/75 (92) 97 03/13/19 04:00 98.0 86 19 135/80 (98) 100 03/12/19 23:38 98.2 85 18 132/79 (96) 98 03/12/19 20:01 Room Air 03/12/19 20:00 98.8 85 18 144/79 (100) 98 03/12/19 15:56 97.8 81 18 125/79 (94) 97 03/12/19 12:00 98.8 78 17 119/68 (85) 98 Height (Feet): 6 Height (Inches): 1.00 Weight (Pounds): 190 Objective HEENT: No pale conjunctivae. No icterus. NECK: No lymphadenopathy. CHEST: Coarse breathing sounds. HEART: S1 and S2. Abd: refused exam EXTREMITIES: No cellulitis or cyanosis. SKIN: Stage III decubitus in the sacral area Laboratory Tests Test 03/12/19 17:20 Microsporidia Identification Pending Current Medications Medications (Trade) Dose Ordered Sig/Deborah Route PRN Reason Start Time Stop Time Status Last Admin Dose Admin Acetaminophen (Tylenol) 650 mg Q4H PRN ORAL Mild Pain/Temp > 100.5 03/06/19 08:15 04/01/19 08:14 Acetaminophen/ Hydrocodone Bitart ([place] 5/325) 1 tab Q4H PRN ORAL Moderate Pain (Pain Scale 4-6) 03/11/19 19:15 03/18/19 19:14 Cefepime HCl 1 gm/ Dextrose 55 ml @ 110 mls/hr EVERY 12 HOURS IVPB 03/06/19 09:00 03/15/19 23:59 03/13/19 08:51 Diphenoxylate HCl/ Atropine (Lomotil) 2.5 mg Q4H PRN ORAL Diarrhea 03/09/19 12:30 04/08/19 12:29 Famotidine (Pepcid I.v.) 20 mg Q12HR IVP 03/13/19 21:00 04/12/19 20:59 Loperamide HCl (Imodium) 2 mg Q4H PRN ORAL Diarrhea 03/06/19 13:45 04/05/19 13:44 03/09/19 13:48 Magnesium Oxide (Mag-Ox 400mg) 400 mg THREE TIMES A DAY ORAL 03/11/19 18:00 04/10/19 17:59 03/11/19 17:32 Metronidazole 100 ml @ 100 mls/hr Q8HR IVPB 03/12/19 15:30 03/19/19 15:29 03/13/19 05:01 Morphine Sulfate (Morphine Sulfate) 2 mg Q4H PRN IVP Severe Pain (Pain Scale 7-10) 03/11/19 19:15 03/18/19 19:14 Ondansetron HCl (Zofran) 4 mg Q4H PRN IVP Nausea & Vomiting 03/06/19 08:15 04/01/19 08:14 Tamsulosin HCl (Flomax) 0.4 mg BID ORAL 03/06/19 09:00 04/02/19 08:59 03/11/19 17:32 Trimethoprim/ Sulfamethoxazole (Bactrim-DS) 1 tab Q12HR ORAL 03/06/19 21:00 03/13/19 20:59 03/11/19 20:31 Vancomycin HCl (Firvanq) 125 mg FOUR TIMES A DAY ORAL 03/09/19 18:00 03/16/19 17:59 03/11/19 20:31 Christine Diaz M.D. Mar 13, 2019 11:34
[2019-03-13 12:00] VITALS: BP 131/78
--- NOTE | 2019-03-13 12:25 | Pulmonology Progress Note ---
Assessment/Plan Problems: (1) Sepsis (2) COPD (chronic obstructive pulmonary disease) (3) Nausea vomiting and diarrhea (4) HCAP (healthcare-associated pneumonia) (5) BPH (benign prostatic hyperplasia) (6) Hypertension (7) HIV disease (8) COPD exacerbation Assessment/Plan wbc still elevated and rising still has large volume diarrhea HIV result noted, CD4 180 respiratory treatment on Cefepime and flagyl and bacrim hemodynamically stable stool for Cdiff was negative 6 days ago, repeat again on vanco PO titrate fio2 to sat of 92% med/surg pt/ot Subjective ROS Limited/Unobtainable: No Constitutional: Reports: no symptoms HEENT: Repors: no symptoms Allergies: Coded Allergies: No Known Allergies (Unverified , 03/02/19) Objective Last 24 Hour Vital Signs Date Time Temp Pulse Resp B/P (MAP) Pulse Ox O2 Delivery O2 Flow Rate FiO2 03/13/19 09:00 Room Air 03/13/19 08:00 97.7 89 19 126/75 (92) 97 03/13/19 04:00 98.0 86 19 135/80 (98) 100 03/12/19 23:38 98.2 85 18 132/79 (96) 98 03/12/19 20:01 Room Air 03/12/19 20:00 98.8 85 18 144/79 (100) 98 03/12/19 15:56 97.8 81 18 125/79 (94) 97 Intake and Output 03/12/19 03/13/19 19:00 07:00 Intake Total 155 ml 2255 ml Output Total 4 ml 454 ml Balance 151 ml 1801 ml Intake Oral 800 ml IV Total 155 ml 255 ml Other 1200 ml Output Urine Total 450 ml Stool Total 4 ml 4 ml # Voids 2 # Bowel Movements 1 Objective General Appearance: cachetic HEENT: normocephalic, atraumatic Respiratory/Chest: chest wall non-tender, normal breath sounds Cardiovascular: normal rate, regular rhythm Abdomen: normal bowel sounds, soft, non tender Genitourinary: normal external genitalia Extremities: no cyanosis Skin: no rash, no lesions Laboratory Tests 03/12/19 17:20: Microsporidia Identification [Pending] Current Medications Medications (Trade) Dose Ordered Sig/Deborah Route PRN Reason Start Time Stop Time Status Last Admin Dose Admin Acetaminophen (Tylenol) 650 mg Q4H PRN ORAL Mild Pain/Temp > 100.5 03/06/19 08:15 04/01/19 08:14 Acetaminophen/ Hydrocodone Bitart ([place] 5/325) 1 tab Q4H PRN ORAL Moderate Pain (Pain Scale 4-6) 03/11/19 19:15 03/18/19 19:14 Cefepime HCl 1 gm/ Dextrose 55 ml @ 110 mls/hr EVERY 12 HOURS IVPB 03/06/19 09:00 03/15/19 23:59 03/13/19 08:51 Diphenoxylate HCl/ Atropine (Lomotil) 2.5 mg Q4H PRN ORAL Diarrhea 03/09/19 12:30 04/08/19 12:29 Famotidine (Pepcid I.v.) 20 mg Q12HR IVP 03/13/19 21:00 04/12/19 20:59 Loperamide HCl (Imodium) 2 mg Q4H PRN ORAL Diarrhea 03/06/19 13:45 04/05/19 13:44 03/09/19 13:48 Magnesium Oxide (Mag-Ox 400mg) 400 mg THREE TIMES A DAY ORAL 03/11/19 18:00 04/10/19 17:59 03/11/19 17:32 Metronidazole 100 ml @ 100 mls/hr Q8HR IVPB 03/12/19 15:30 03/19/19 15:29 03/13/19 05:01 Morphine Sulfate (Morphine Sulfate) 2 mg Q4H PRN IVP Severe Pain (Pain Scale 7-10) 03/11/19 19:15 03/18/19 19:14 Ondansetron HCl (Zofran) 4 mg Q4H PRN IVP Nausea & Vomiting 03/06/19 08:15 04/01/19 08:14 Tamsulosin HCl (Flomax) 0.4 mg BID ORAL 03/06/19 09:00 04/02/19 08:59 03/11/19 17:32 Trimethoprim/ Sulfamethoxazole (Bactrim-DS) 1 tab Q12HR ORAL 03/06/19 21:00 03/13/19 20:59 03/11/19 20:31 Vancomycin HCl (Firvanq) 125 mg FOUR TIMES A DAY ORAL 03/09/19 18:00 03/16/19 17:59 03/11/19 20:31 Rico Chavarria MD Mar 13, 2019 12:25
--- NOTE | 2019-03-13 12:35 | NUR ---
CASE MANAGEMENT:REVIEW 03/13/19 SI: SEPSIS. COPD. PNA 97.7 89 19 126/75 97% ON RA IS: IV CEFEPIME Q12 BACTRIM PO Q12 VANCOMYCON PO QID IV FLAGYL Q8HRS IMMODIUM PO Q4HRS PRN : TELEMETRY STATUS DCP: FROM [facility]
--- NOTE | 2019-03-13 13:01 | NUR ---
NURSE NOTES: Dr MAYO visited pt and he is aware pt refused all po meds, no new order to RN.
--- NOTE | 2019-03-13 14:43 | Surgery Progress Note ---
Surgery Progress Note Subjective Additional Comments Patient seen and examined bedside. He is pleasant but still refusing majority of care plan. I tried explained to him again the importance of proposed care plan but he states that he is okay and wants to make the decisions that he is making. No nausea vomiting fever chills. Leukocytosis. Continue to have diarrhea tolerating diet denies any pain Objective Last 24 Hour Vital Signs Date Time Temp Pulse Resp B/P (MAP) Pulse Ox O2 Delivery O2 Flow Rate FiO2 03/13/19 09:00 Room Air 03/13/19 08:00 97.7 89 19 126/75 (92) 97 03/13/19 04:00 98.0 86 19 135/80 (98) 100 03/12/19 23:38 98.2 85 18 132/79 (96) 98 03/12/19 20:01 Room Air 03/12/19 20:00 98.8 85 18 144/79 (100) 98 03/12/19 15:56 97.8 81 18 125/79 (94) 97 I&O Intake and Output 03/12/19 03/13/19 18:59 06:59 Intake Total 155 ml 2255 ml Output Total 4 ml 454 ml Balance 151 ml 1801 ml Intake Oral 800 ml IV Total 155 ml 255 ml Other 1200 ml Output Urine Total 450 ml Stool Total 4 ml 4 ml # Voids 2 # Bowel Movements 1 Dressing: other Wound: other Drains: other Cardiovascular: RSR Respiratory: clear Abdomen: soft, non-tender, present bowel sounds, non-distended Extremities: no tenderness, no cyanosis, other Laboratory Tests Test 03/12/19 17:20 Microsporidia Identification Pending Plan Problems: (1) Decubitus skin ulcer Assessment & Plan: Pt presented on admission with multiple pressure injuries. Blood blisters to ezequiel R tibia and medial L tibia. Full Thickness stage 3 pressure injury Sacrum . Base of wound 60% biofilm,40% viable. Edges are macerated bordered by black and fluctuant base with additional wounds at R sacrum. No odor or exudate noted. Pt complained of pain at site when in supine. Rigidity noted to both lower extremities and pt heels are in continuously in contact. DTPI noted to medial R heel . Base of wound with purple with maroon borders and fluctuant at base (L)4cm x (W)4cm .Periwound R heel is boggy but blanchable. DTPI medial L heel . Base of wound is maroon with scattered purple areas and is fluctuant at base. Periwound L heel is boggy but blanchable. Tx.Plan: Cleanse Sacral wound with Saline. Apply Therahoney. Apply Moisture Barrier periwound. Cover with Optifoam drsg every 3 days and prn. Apply Cavilon Skin Barrier to blood blisters R and L tibia. Cover each wound with Optifoam drsg. Change every 7 days and prn. Apply Cavilon Skin Barrier to both heels. Cover each heel with Optifoam drsg. Change every 7 days and prn. APM/KRISTI Mattress overlay. Reposition at least every 2hours or as tolerated. Place pillow between lower ext to keep Heels apart. Off-load heels with pillow. (2) Colitis Assessment & Plan: Findings: Significant artifact limits evaluation. The lung bases notable for posterior basal atelectasis. Patchy groundglass opacities also noted nonspecific. Trace pericardial fluid demonstrated. No obvious hydronephrosis or stones identified. No obvious free fluid identified. Question of gallstones. Aortoiliac calcifications are present. There is thickening of the wall of the colon especially noted on the right side involving the ascending colon and cecum. Findings suspicious for colitis. Correlate clinically. There is thickening of the wall the urinary bladder. 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 Anasarca noted. IMPRESSION: Limited evaluation due to technical artifacts. Suspected colitis with the thickening of the wall the colon. Correlate clinically. Thickening of the wall the urinary bladder. Correlate for cystitis. -Seen by GI and recommended to have Colonoscopy but declined 1. Trace bilateral pleural effusions. Associated atelectasis. 2. Prominent wall thickening of the entire colon and rectum is concerning for pancolitis and proctitis. 3. Fluid and gas-filled small bowel loops could represent an element of ileus or enteritis. 4. Moderate to large amount of ascites. 5. Anasarca. 6. Wall thickening of the bladder is nonspecific. Please correlate with urinalysis to evaluate for cystitis. exam stable no n/v/f/c I had a long discussion with patient at bedside. explained CT findings, history , current medical condition and recommendation of colonoscopy. patient refused prior and still refusing. discuss with GI and ID etiology of wbc likely colitis but etiology of colitis unknown. would recommend scope to further evaluation will follow up with recs (3) Sepsis Assessment & Plan: febrile t max 104 - resolved leukocytosis lactic acidosis - resolved exam improved CT with colitis worse now likely etiology of sepsis cultures noted ABX as per ID OB stool negative C. difficile negative and repeat C. difficile negative stool culture negative KUB reviewed - No definite acute process. Nonspecific bowel gas pattern. - Markedly abnormal bilateral hips as described. Could represent sequelae of process such as old bilateral avascular necrosis with resultant secondary degenerative change, lung other possibilities improving Imaging labs ordered Still pending work-up of etiology leukocytosis though patient clinically improving will follow with exam and recs okay for diet (4) Nausea vomiting and diarrhea César Romero Mar 13, 2019 14:43
--- NOTE | 2019-03-13 14:50 | Nephrology Progress Note ---
Assessment/Plan Problem List: (1) Hyponatremia (2) HIV disease (3) Colitis (4) Sepsis (5) BPH (benign prostatic hyperplasia) Assessment HypoNatremia: Etiology? depletional Other Dx: sepsis ( leukocytosis, fever, lactic acidosis, evidence of infection) colitis elevated troponin r/o ACS vs demand ischemia tachycardia dehydration + HIV asymptomatic bacteriuria /? UTI with MRSA- hx of HTN COPD BPH sacral decub st 3 POA anemia severe hypo Mg , likely due to diarrhea Plan No labs today been refusing blood draw for the past 2 days ! previously Mag IV 3% Saline as needed IV K supplement as needed Protonix monitor lytes per orders Subjective ROS Limited/Unobtainable: No Objective Objective Last 24 Hour Vital Signs Date Time Temp Pulse Resp B/P (MAP) Pulse Ox O2 Delivery O2 Flow Rate FiO2 03/13/19 09:00 Room Air 03/13/19 08:00 97.7 89 19 126/75 (92) 97 03/13/19 04:00 98.0 86 19 135/80 (98) 100 03/12/19 23:38 98.2 85 18 132/79 (96) 98 03/12/19 20:01 Room Air 03/12/19 20:00 98.8 85 18 144/79 (100) 98 03/12/19 15:56 97.8 81 18 125/79 (94) 97 Intake and Output 03/12/19 03/13/19 18:59 06:59 Intake Total 155 ml 2255 ml Output Total 4 ml 454 ml Balance 151 ml 1801 ml Intake Oral 800 ml IV Total 155 ml 255 ml Other 1200 ml Output Urine Total 450 ml Stool Total 4 ml 4 ml # Voids 2 # Bowel Movements 1 Laboratory Tests 03/12/19 17:20: Microsporidia Identification [Pending] Height (Feet): 6 Height (Inches): 1.00 Weight (Pounds): 190 General Appearance: no apparent distress Cardiovascular: normal rate Respiratory/Chest: decreased breath sounds Abdomen: distended Objective no change Zander Razo MD Mar 13, 2019 14:49
[2019-03-13 16:00] VITALS: BP 125/66
[2019-03-13] MEDS: D5W IV SCH ×2 (17:27→23:55)
[2019-03-13] MEDS: BACTRIM IV SCH ×2 (17:27→23:55)
[2019-03-13] MEDS: Loperamide 2mg cap ORAL PRN (17:39)
--- NOTE | 2019-03-13 17:50 | Internal Med Progress Note ---
Subjective Date of Service: Mar 13, 2019 Physician Name SamariaAmauri Attending Physician Oscar Martel MD Current Medications Medications (Trade) Dose Ordered Sig/Deborah Route PRN Reason Start Time Stop Time Status Last Admin Dose Admin Acetaminophen (Tylenol) 650 mg Q4H PRN ORAL Mild Pain/Temp > 100.5 03/06/19 08:15 04/01/19 08:14 Acetaminophen/ Hydrocodone Bitart ([place] 5/325) 1 tab Q4H PRN ORAL Moderate Pain (Pain Scale 4-6) 03/11/19 19:15 03/18/19 19:14 Cefepime HCl 1 gm/ Dextrose 55 ml @ 110 mls/hr EVERY 12 HOURS IVPB 03/06/19 09:00 03/15/19 23:59 03/13/19 08:51 Diphenoxylate HCl/ Atropine (Lomotil) 2.5 mg Q4H PRN ORAL Diarrhea 03/09/19 12:30 04/08/19 12:29 Famotidine (Pepcid I.v.) 20 mg Q12HR IVP 03/13/19 21:00 04/12/19 20:59 Loperamide HCl (Imodium) 2 mg Q4H PRN ORAL Diarrhea 03/06/19 13:45 04/05/19 13:44 03/13/19 17:39 Magnesium Oxide (Mag-Ox 400mg) 400 mg THREE TIMES A DAY ORAL 03/11/19 18:00 04/10/19 17:59 03/11/19 17:32 Metronidazole 100 ml @ 100 mls/hr Q8HR IVPB 03/12/19 15:30 03/19/19 15:29 03/13/19 14:39 Morphine Sulfate (Morphine Sulfate) 2 mg Q4H PRN IVP Severe Pain (Pain Scale 7-10) 03/11/19 19:15 03/18/19 19:14 Ondansetron HCl (Zofran) 4 mg Q4H PRN IVP Nausea & Vomiting 03/06/19 08:15 04/01/19 08:14 Tamsulosin HCl (Flomax) 0.4 mg BID ORAL 03/06/19 09:00 04/02/19 08:59 03/11/19 17:32 Trimethoprim/ Sulfamethoxazole 10 ml/Dextrose 285 ml @ 190 mls/hr Q6HR IV 03/13/19 18:00 03/20/19 17:59 03/13/19 17:27 Vancomycin HCl (Firvanq) 125 mg FOUR TIMES A DAY ORAL 03/09/19 18:00 03/16/19 17:59 03/11/19 20:31 Allergies: Coded Allergies: No Known Allergies (Unverified , 03/02/19) ROS Limited/Unobtainable: No Constitutional: Reports: no symptoms HEENT: Reports: no symptoms Cardiovascular: Reports: no symptoms Respiratory: Reports: no symptoms Gastrointestinal/Abdominal: Reports: no symptoms Genitourinary: Reports: no symptoms Neurologic/Psychiatric: Reports: no symptoms Subjective 63 YO M admitted with abdominal pain, nausea and vomiting. Now Colitis and elevated troponin. HIV positive. Cover for Int Med-Dr Martel Objective Last Vital Signs Date Time Temp Pulse Resp B/P (MAP) Pulse Ox O2 Delivery O2 Flow Rate FiO2 03/13/19 16:00 97.6 82 18 125/66 (85) 97 03/13/19 09:00 Room Air 03/10/19 21:00 2.0 Microbiology Date/Time Source Procedure Growth Status 03/12/19 17:20 Stool Ova and Parasites - Final Complete 03/12/19 17:20 Stool Ova and Parasite Result 1 - Final Complete Intake and Output 03/12/19 03/13/19 18:59 06:59 Intake Total 155 ml 2255 ml Output Total 4 ml 454 ml Balance 151 ml 1801 ml Intake Oral 800 ml IV Total 155 ml 255 ml Other 1200 ml Output Urine Total 450 ml Stool Total 4 ml 4 ml # Voids 2 # Bowel Movements 1 Objective PHYSICAL EXAMINATION: GENERAL: The patient is awake, responsive, no acute distress, but chronically cachectic and malnutrition. HEAD AND NECK: Pupils are equal and reactive to light. Extraocular movements intact. NECK: Supple. No JVD. LUNGS: Good air entry. No wheezing or rales. Decreased in bases. HEART: S1 and S2. Distant heart sounds. No murmur or gallops. ABDOMEN: Soft, mildly distended. No rebound tenderness. Generalized tenderness. RECTAL: Refused and deferred. GENITOURINARY: Refused and deferred. PSYCHIATRIC: Mood and affect intact. Gait was not assessed due to the patient's status. SKIN: Full thickness stage III pressure ulcer in the sacrum was noted presented on admission. NEUROLOGIC: Cranial nerves II through XII grossly intact. The patient moving all extremities. Lower extremities weaker than upper extremity and tender to touch in the lower extremity. Assessment/Plan Assessment/Plan ASSESSMENT: 1. Mild elevation of troponin, possible acute myocardial infarction versus demand ischemia. 2. Severe dehydration with hypovolemia. 3. Anemia most likely secondary to the intra-abdominal infection. 4. Colitis. 5. BPH. 6. Hypertension presently hypotensive. 7. COPD. 8. Hyponatremia. 9. Pressure ulcer stage III sacrum present on admission. 10. Acute urinary tract infection. 11. HIV preliminary positive PLAN: 1. Admit the patient to med/surg See cardiology consult=Dr Salas 2. Continue cefepime and Flagyl per ID. See GI consult=Dr Interiano 3. Dr. Chavarria from Pulmonary Critical Care 4. Dr. Romero from General surgery. 5. Dr Ramírez= wound care of the sacral ulcer. 6. HIV pos=ID consult=Dr Carroll. Await HIV viral load= [id number]; [id number] 7. Hyponatremia-See nephrology note=Dr Razo Monitor laboratory as well as cultures. Code status Full code. DVT prophylaxis with heparin subcutaneous. Amauri Mera MD Mar 13, 2019 17:50
--- NOTE | 2019-03-13 19:15 | NUR ---
HAND-OFF: Report given to RAMILA HOBBS. pt is awake and stable.
--- NOTE | 2019-03-13 19:23 | NUR ---
NURSE NOTES: Received patient in bed, awake, alert, oriented, no acute distress noted,IV site is clean dry and intact, call light is within reach, bed is in low position, locked, alarm is on. Will continue to monitor for comfort and safety.
[2019-03-13 20:00] VITALS: BP 122/79
[2019-03-14 04:00] VITALS: BP 116/80
[2019-03-14] MEDS: BACTRIM IV SCH ×3 (05:09→16:59)
[2019-03-14] MEDS: D5W IV SCH ×3 (05:09→16:59)
[2019-03-14] MEDS: metroNIDAZOLE 500mg Premix IVPB SCH ×2 (06:14→15:18)
[2019-03-14] MEDS: Vancomycin oral 125mg/2.5ml ORAL SCH ×3 (08:19→17:00)
[2019-03-14] MEDS: Cefepime HCl 1 GM in D5W 55 ML IVPB SCH (08:19)
[2019-03-14] MEDS: Tamsulosin 0.4mg cap ORAL SCH ×2 (08:19→17:00)
[2019-03-14] MEDS: Magnesium Oxide 400mg tab ORAL SCH ×3 (08:20→17:00)
[2019-03-14] MEDS: Loperamide 2mg cap ORAL PRN (08:22)
[2019-03-14 08:29] VITALS: BP 119/71
--- NOTE | 2019-03-14 10:38 | Nephrology Progress Note ---
Assessment/Plan Problem List: (1) Hyponatremia (2) HIV disease (3) Colitis (4) Sepsis (5) BPH (benign prostatic hyperplasia) Assessment HypoNatremia: Etiology? depletional Other Dx: sepsis ( leukocytosis, fever, lactic acidosis, evidence of infection) colitis elevated troponin r/o ACS vs demand ischemia tachycardia dehydration + HIV asymptomatic bacteriuria /? UTI with MRSA- hx of HTN COPD BPH sacral decub st 3 POA anemia severe hypo Mg , likely due to diarrhea Plan No labs today been refusing blood draw for the past 2 days ! previously Mag IV 3% Saline as needed IV K supplement as needed Protonix monitor lytes per orders Subjective ROS Limited/Unobtainable: No Constitutional: Reports: malaise Objective Objective Last 24 Hour Vital Signs Date Time Temp Pulse Resp B/P (MAP) Pulse Ox O2 Delivery O2 Flow Rate FiO2 03/14/19 09:00 Room Air 03/14/19 08:29 97.0 99 21 119/71 (87) 98 03/14/19 04:00 97.0 97 21 116/80 (92) 98 03/13/19 21:15 Room Air 03/13/19 20:00 98.0 96 20 122/79 (93) 99 03/13/19 16:00 97.6 82 18 125/66 (85) 97 03/13/19 12:00 97.6 85 19 131/78 (95) 99 Intake and Output 03/13/19 03/14/19 19:00 07:00 Intake Total 1240 ml Output Total 3 ml Balance 1237 ml IV Total 440 ml Other 800 ml Stool Total 3 ml Height (Feet): 6 Height (Inches): 1.00 Weight (Pounds): 190 General Appearance: no apparent distress Objective no change Zander Razo MD Mar 14, 2019 10:38
[2019-03-14 12:00] VITALS: BP 121/71
--- NOTE | 2019-03-14 12:01 | Internal Med Progress Note ---
Subjective Date of Service: Mar 14, 2019 Physician Name Amauri Mera Attending Physician Oscar Martel MD Current Medications Medications (Trade) Dose Ordered Sig/Deborah Route PRN Reason Start Time Stop Time Status Last Admin Dose Admin Acetaminophen (Tylenol) 650 mg Q4H PRN ORAL Mild Pain/Temp > 100.5 03/06/19 08:15 04/01/19 08:14 Acetaminophen/ Hydrocodone Bitart ([place] 5/325) 1 tab Q4H PRN ORAL Moderate Pain (Pain Scale 4-6) 03/11/19 19:15 03/18/19 19:14 Cefepime HCl 1 gm/ Dextrose 55 ml @ 110 mls/hr EVERY 12 HOURS IVPB 03/06/19 09:00 03/15/19 23:59 03/14/19 08:19 Diphenoxylate HCl/ Atropine (Lomotil) 2.5 mg Q4H PRN ORAL Diarrhea 03/09/19 12:30 04/08/19 12:29 Famotidine (Pepcid I.v.) 20 mg Q12HR IVP 03/13/19 21:00 04/12/19 20:59 03/13/19 20:35 Loperamide HCl (Imodium) 2 mg Q4H PRN ORAL Diarrhea 03/06/19 13:45 04/05/19 13:44 03/14/19 08:22 Magnesium Oxide (Mag-Ox 400mg) 400 mg THREE TIMES A DAY ORAL 03/11/19 18:00 04/10/19 17:59 03/11/19 17:32 Metronidazole 100 ml @ 100 mls/hr Q8HR IVPB 03/12/19 15:30 03/19/19 15:29 03/14/19 06:14 Morphine Sulfate (Morphine Sulfate) 2 mg Q4H PRN IVP Severe Pain (Pain Scale 7-10) 03/11/19 19:15 03/18/19 19:14 Ondansetron HCl (Zofran) 4 mg Q4H PRN IVP Nausea & Vomiting 03/06/19 08:15 04/01/19 08:14 Tamsulosin HCl (Flomax) 0.4 mg BID ORAL 03/06/19 09:00 04/02/19 08:59 03/11/19 17:32 Trimethoprim/ Sulfamethoxazole 10 ml/Dextrose 285 ml @ 190 mls/hr Q6HR IV 03/13/19 18:00 03/20/19 17:59 03/14/19 05:09 Vancomycin HCl (Firvanq) 125 mg FOUR TIMES A DAY ORAL 03/09/19 18:00 03/16/19 17:59 03/13/19 20:35 Allergies: Coded Allergies: No Known Allergies (Unverified , 03/02/19) ROS Limited/Unobtainable: No Constitutional: Reports: no symptoms HEENT: Reports: no symptoms Cardiovascular: Reports: no symptoms Respiratory: Reports: no symptoms Gastrointestinal/Abdominal: Reports: no symptoms Genitourinary: Reports: no symptoms Neurologic/Psychiatric: Reports: no symptoms Subjective 63 YO M admitted with abdominal pain, nausea and vomiting. Now Colitis and elevated troponin. HIV positive. Cover for Int Med-Dr Martel Objective Last Vital Signs Date Time Temp Pulse Resp B/P (MAP) Pulse Ox O2 Delivery O2 Flow Rate FiO2 03/14/19 09:00 Room Air 03/14/19 08:29 97.0 99 21 119/71 (87) 98 03/10/19 21:00 2.0 Microbiology Date/Time Source Procedure Growth Status 03/12/19 17:20 Stool Ova and Parasites - Final Complete 03/12/19 17:20 Stool Ova and Parasite Result 1 - Final Complete Intake and Output 03/13/19 03/14/19 19:00 07:00 Intake Total 1240 ml Output Total 3 ml Balance 1237 ml IV Total 440 ml Other 800 ml Stool Total 3 ml Objective PHYSICAL EXAMINATION: GENERAL: The patient is awake, responsive, no acute distress, but chronically cachectic and malnutrition. HEAD AND NECK: Pupils are equal and reactive to light. Extraocular movements intact. NECK: Supple. No JVD. LUNGS: Good air entry. No wheezing or rales. Decreased in bases. HEART: S1 and S2. Distant heart sounds. No murmur or gallops. ABDOMEN: Soft, mildly distended. No rebound tenderness. Generalized tenderness. RECTAL: Refused and deferred. GENITOURINARY: Refused and deferred. PSYCHIATRIC: Mood and affect intact. Gait was not assessed due to the patient's status. SKIN: Full thickness stage III pressure ulcer in the sacrum was noted presented on admission. NEUROLOGIC: Cranial nerves II through XII grossly intact. The patient moving all extremities. Lower extremities weaker than upper extremity and tender to touch in the lower extremity. Assessment/Plan Assessment/Plan ASSESSMENT: 1. Mild elevation of troponin, possible acute myocardial infarction versus demand ischemia. 2. Severe dehydration with hypovolemia. 3. Anemia most likely secondary to the intra-abdominal infection. 4. Colitis. 5. BPH. 6. Hypertension presently hypotensive. 7. COPD. 8. Hyponatremia. 9. Pressure ulcer stage III sacrum present on admission. 10. Acute urinary tract infection. 11. HIV preliminary positive PLAN: 1. Admit the patient to med/surg See cardiology consult=Dr Salsa 2. Continue cefepime and Flagyl per ID. See GI consult=Dr Interiano 3. Dr. Chavarria from Pulmonary Critical Care 4. Dr. Romero from General surgery. 5. Dr Ramírez= wound care of the sacral ulcer. 6. HIV pos=ID consult=Dr Carroll. Await HIV viral load= 55664; TY0=[id number] 7. Hyponatremia-See nephrology note=Dr Razo Monitor laboratory as well as cultures. Code status Full code. DVT prophylaxis with heparin subcutaneous. Amauri Mera MD Mar 14, 2019 12:01
--- NOTE | 2019-03-14 12:12 | GI Progress Note ---
Assessment/Plan Problems: (1) Diarrhea ICD Codes: R19.7 - Diarrhea, unspecified SNOMED: 07650272 (2) Colitis ICD Codes: K52.9 - Noninfective gastroenteritis and colitis, unspecified SNOMED: 41145709, 577090048 Status: unchanged Status Narrative Discussed with Dr. Interiano. Assessment/Plan This is a 63-year-old male patient who presents to the emergency room with abdominal pain and complaint of diarrhea secondary to suspected colitis seen on CT scan. OB stool negative C. difficile negative stool culture negative KUB reviewed - No definite acute process. Nonspecific bowel gas pattern. - Markedly abnormal bilateral hips as described. Could represent sequelae of process such as old bilateral avascular necrosis with resultant secondary degenerative change, lung other possibilities APCT reviewed 1. Trace bilateral pleural effusions. Associated atelectasis. 2. Prominent wall thickening of the entire colon and rectum is concerning for pancolitis and proctitis. 3. Fluid and gas-filled small bowel loops could represent an element of ileus or enteritis. 4. Moderate to large amount of ascites. 5. Anasarca. 6. Wall thickening of the bladder is nonspecific. Please correlate with urinalysis to evaluate for cystitis. patient refused colonoscopy. hold stool softeners and laxatives Imodium prn abx per ID PPI IV and p.o. hydration plus electrolyte correction Zofran as needed Pain management Outpatient colonoscopy if patient agrees neg stool ob x1 The patient was seen and examined at bedside and all new and available data was reviewed in the patients chart. I agree with the above findings, impression and plan. (Patient seen earlier today. Signature stamp does not reflect patient encounter time.). - Mansoor Interiano MD Subjective Subjective Patient still complains of diarrhea, wants antidiarrheals Refusing colonoscopy Denies any abdominal pain Denies any nausea vomiting refusing assessment Objective Last 24 Hour Vital Signs Date Time Temp Pulse Resp B/P (MAP) Pulse Ox O2 Delivery O2 Flow Rate FiO2 03/14/19 09:00 Room Air 03/14/19 08:29 97.0 99 21 119/71 (87) 98 03/14/19 04:00 97.0 97 21 116/80 (92) 98 03/13/19 21:15 Room Air 03/13/19 20:00 98.0 96 20 122/79 (93) 99 03/13/19 16:00 97.6 82 18 125/66 (85) 97 Intake and Output 03/13/19 03/14/19 19:00 07:00 Intake Total 1240 ml Output Total 3 ml Balance 1237 ml IV Total 440 ml Other 800 ml Stool Total 3 ml Height (Feet): 6 Height (Inches): 1.00 Weight (Pounds): 190 General Appearance: WD/WN, no apparent distress, alert Cardiovascular: normal rate Respiratory/Chest: normal breath sounds, no respiratory distress Abdominal Exam: normal bowel sounds, non tender, soft Extremities: non-tender Leonides Mcelroy CL[employer]ICAL TRIAL DATA MANAGER Mar 14, 2019 12:12
--- NOTE | 2019-03-14 12:47 | Pulmonology Progress Note ---
Assessment/Plan Problems: (1) Sepsis (2) COPD (chronic obstructive pulmonary disease) (3) Nausea vomiting and diarrhea (4) HCAP (healthcare-associated pneumonia) (5) BPH (benign prostatic hyperplasia) (6) Hypertension (7) HIV disease (8) COPD exacerbation Assessment/Plan wbc still elevated, no labs for two days diarrhea slightly better HIV result noted, CD4 180 respiratory treatment on Cefepime and flagyl and bacrim hemodynamically stable stool for Cdiff was negative 6 days ago, repeat again on vanco PO titrate fio2 to sat of 92% med/surg pt/ot Subjective ROS Limited/Unobtainable: No Constitutional: Reports: no symptoms HEENT: Repors: no symptoms Respiratory: Reports: no symptoms Allergies: Coded Allergies: No Known Allergies (Unverified , 03/02/19) Objective Last 24 Hour Vital Signs Date Time Temp Pulse Resp B/P (MAP) Pulse Ox O2 Delivery O2 Flow Rate FiO2 03/14/19 09:00 Room Air 03/14/19 08:29 97.0 99 21 119/71 (87) 98 03/14/19 04:00 97.0 97 21 116/80 (92) 98 03/13/19 21:15 Room Air 03/13/19 20:00 98.0 96 20 122/79 (93) 99 03/13/19 16:00 97.6 82 18 125/66 (85) 97 Intake and Output 03/13/19 03/14/19 19:00 07:00 Intake Total 1240 ml Output Total 3 ml Balance 1237 ml IV Total 440 ml Other 800 ml Stool Total 3 ml Objective General Appearance: cachetic HEENT: normocephalic, atraumatic Respiratory/Chest: chest wall non-tender, normal breath sounds Cardiovascular: normal rate, regular rhythm Abdomen: normal bowel sounds, soft, non tender Genitourinary: normal external genitalia Extremities: no cyanosis Skin: no rash, no lesions Microbiology Date/Time Source Procedure Growth Status 03/12/19 17:20 Stool Ova and Parasites - Final Complete 03/12/19 17:20 Stool Ova and Parasite Result 1 - Final Complete Current Medications Medications (Trade) Dose Ordered Sig/Deborah Route PRN Reason Start Time Stop Time Status Last Admin Dose Admin Acetaminophen (Tylenol) 650 mg Q4H PRN ORAL Mild Pain/Temp > 100.5 03/06/19 08:15 12/15/19 08:14 Acetaminophen/ Hydrocodone Bitart ([place] 5/325) 1 tab Q4H PRN ORAL Moderate Pain (Pain Scale 4-6) 03/11/19 19:15 03/18/19 19:14 Cefepime HCl 1 gm/ Dextrose 55 ml @ 110 mls/hr EVERY 12 HOURS IVPB 03/06/19 09:00 03/15/19 23:59 03/14/19 08:19 Diphenoxylate HCl/ Atropine (Lomotil) 2.5 mg Q4H PRN ORAL Diarrhea 03/09/19 12:30 04/08/19 12:29 Famotidine (Pepcid I.v.) 20 mg Q12HR IVP 03/13/19 21:00 04/12/19 20:59 03/13/19 20:35 Loperamide HCl (Imodium) 2 mg Q4H PRN ORAL Diarrhea 03/06/19 13:45 04/05/19 13:44 03/14/19 08:22 Magnesium Oxide (Mag-Ox 400mg) 400 mg THREE TIMES A DAY ORAL 03/11/19 18:00 04/10/19 17:59 03/11/19 17:32 Metronidazole 100 ml @ 100 mls/hr Q8HR IVPB 03/12/19 15:30 03/19/19 15:29 03/14/19 06:14 Morphine Sulfate (Morphine Sulfate) 2 mg Q4H PRN IVP Severe Pain (Pain Scale 7-10) 03/11/19 19:15 03/18/19 19:14 Ondansetron HCl (Zofran) 4 mg Q4H PRN IVP Nausea & Vomiting 03/06/19 08:15 04/01/19 08:14 Tamsulosin HCl (Flomax) 0.4 mg BID ORAL 03/06/19 09:00 04/02/19 08:59 03/11/19 17:32 Trimethoprim/ Sulfamethoxazole 10 ml/Dextrose 285 ml @ 190 mls/hr Q6HR IV 03/13/19 18:00 03/20/19 17:59 03/14/19 12:05 Vancomycin HCl (Firvanq) 125 mg FOUR TIMES A DAY ORAL 03/09/19 18:00 03/16/19 17:59 03/13/19 20:35 Rico Chavarria MD Mar 14, 2019 12:47
--- NOTE | 2019-03-14 15:17 | NUR ---
P.T Note: late entry 1500 Order received. P.T evaluation attempted however on 1st attempt. pt declined to participate and requested for P.T to come back in 30 mins. After 30 mins P.T came back to pt's room however patient stated he needed to be cleaned up from bowel movement . On 3rd attempt , patient still waiting to be cleaned up . Will reattempt when/as schedule permits.
--- NOTE | 2019-03-14 15:54 | NUR ---
DISCHARGE PLANNING YESTERDAY PATIENT DID NOT WANT TO BE DISCHARGED UNTIL TODAY TODAY PATIENT DOESN'T WANT TO BE DISCHARGED UNTIL TOMORROW DISCHARGE ORDER RECEIVED FROM DR GOMEZ AND ENTERED *NOTE ~ PATIENT HAS BEEN REFUSING SOME CARE AND MEDICATIONS PATIENT IS ACCEPTED BACK TO [facility] ROOM [address] SKILLED T: [phone] FOR NURSE TO NURSE REPORT [facility] HAS BEEN ARRANGED FOR [address] [facility] NEEDS TO CLARIFY ANTIBIOTICS AND SEE IF ANY CAN BE CHANGED TO PO
[2019-03-14 16:00] VITALS: BP 116/71
--- NOTE | 2019-03-14 16:59 | Infectious Diseases Prog Note ---
Assessment/Plan Assessment/Plan 63yo man admitted with abdominal pain and diarrhea. Fever, SP Leukocytosis, fluctuaging Lactic acidosis, SP diarrhea/colitis- r/o CMV colitis vs HIV enterocolitis vs other OI (ie MAC, parasitic) 03/11 CT: Trace bilateral pleural effusions. Associated atelectasis. Prominent wall thickening of the entire colon and rectum is concerning for pancolitis and proctitis. Fluid and gas-filled small bowel loops could represent an element of ileus or enteritis. Moderate to large amount of ascites. Anasarca. Wall thickening of the bladder is nonspecific. Please correlate with urinalysis to evaluate for cystitis. 03/02 CT: Suspected colitis with the thickening of the wall the colon. Correlate clinically. Thickening of the wall the urinary bladder. Correlate for cystitis. C diff negative x2 stool cx negative stool o/p x1 negative it appears pt had an episode of diarrhea/colitis back in January as well. Dx with UTI and given cipro. Then had C diff 02/15...pending record from [place] whether this was treated given recurrent diarrhea, recommend colonoscopy but pt refused. pt also has been refusing other care(ie/ PT, physical exams). will not answer questions about travel, diet or epidemiological risk factors saying "woman, you ask too many questions. leave me alone." Pt has history of diarrhea 02/08/19 and was hospitalized at [facility] and dx with IBD without flare 02/07 CT: pulm emphysema, atelectasis at lung bases, unchanged circumferential bladder wall thickening, nonspecific. diffuse thickening of the wall of hepatic flexure and ascending colon. indicate inflammatory bowel disease or ischemia. severe degenerative changes of hips. -Negative: E. histolytica ab, Echinococcus ab unlikely UTI UA pos UCx Staph, likely colonizer HIV Screen positive- new diagnosis HIV-1 Abt positive. 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 / CD4 180 (7.2%) RPR negative stool o/p negative x1 CMV colitis unlikely given CD4 count discussed lab result with patient, he is in denial stating that he does not have HIV and that the hospital gave him HIV pt is not interested in starting medication at this time offered to provide more information including treatment options and prognosis but pt declined CXR: Bibasilar pneumonitis and atelectasis/scarring. Pulmonary emphysema. 1. COPD. 2. Hypertension. 3. BPH. 4. History of cocaine abuse in the past. 5. Bedbound. PLAN: continue cefepime and flagyl #13/14. IV Bactrim #8/10 to IV for cyclospora and isospora. Vanc PO #3/10 given pt recently had pos PCR, [place] only has toxin test ( patient refusing oral vancomycin) monitor CBC, temp f/u bcx f/u Entamoeba, Giardia, stool AFB, urine histoplasma, gonorrhea chlamydia NAAT, urine and rectum f/u O+p x2, microscoporidium, cyclospora/isospora, HIV genotype, AFB b cxx pt must follow up with PMD/HIV specialist once discharged recommend colonoscopy to rule out noninfectious etiology of diarrhea: IBD, Kaposi's; patient refusing Thank you, Dr. Martel, for allowing me to participate in the care of this patient. I will follow the patient with you during this admission. Subjective Allergies: Coded Allergies: No Known Allergies (Unverified , 03/02/19) Subjective afebrile wbc fluctuating bt 15-16, no cbc today;l refusing labs refusing oral antibiotics Objective Vital Signs Last 24 Hour Vital Signs Date Time Temp Pulse Resp B/P (MAP) Pulse Ox O2 Delivery O2 Flow Rate FiO2 03/14/19 09:00 Room Air 03/14/19 08:29 97.0 99 21 119/71 (87) 98 03/14/19 04:00 97.0 97 21 116/80 (92) 98 03/13/19 21:15 Room Air 03/13/19 20:00 98.0 96 20 122/79 (93) 99 Height (Feet): 6 Height (Inches): 1.00 Weight (Pounds): 190 Objective HEENT: No pale conjunctivae. No icterus. NECK: No lymphadenopathy. CHEST: Coarse breathing sounds. HEART: S1 and S2. Abd: refused exam EXTREMITIES: No cellulitis or cyanosis. SKIN: Stage III decubitus in the sacral area Microbiology Date/Time Source Procedure Growth Status 03/12/19 17:20 Stool Ova and Parasites - Final Complete 03/12/19 17:20 Stool Ova and Parasite Result 1 - Final Complete Current Medications Medications (Trade) Dose Ordered Sig/Deborah Route PRN Reason Start Time Stop Time Status Last Admin Dose Admin Acetaminophen (Tylenol) 650 mg Q4H PRN ORAL Mild Pain/Temp > 100.5 03/06/19 08:15 04/01/19 08:14 Acetaminophen/ Hydrocodone Bitart ([place] 5/325) 1 tab Q4H PRN ORAL Moderate Pain (Pain Scale 4-6) 03/11/19 19:15 03/18/19 19:14 Cefepime HCl 1 gm/ Dextrose 55 ml @ 110 mls/hr EVERY 12 HOURS IVPB 03/06/19 09:00 03/15/19 23:59 03/14/19 08:19 Diphenoxylate HCl/ Atropine (Lomotil) 2.5 mg Q4H PRN ORAL Diarrhea 03/09/19 12:30 04/08/19 12:29 Famotidine (Pepcid I.v.) 20 mg Q12HR IVP 03/13/19 21:00 04/12/19 20:59 03/13/19 20:35 Loperamide HCl (Imodium) 2 mg Q4H PRN ORAL Diarrhea 03/06/19 13:45 04/05/19 13:44 03/14/19 08:22 Magnesium Oxide (Mag-Ox 400mg) 400 mg THREE TIMES A DAY ORAL 03/11/19 18:00 04/10/19 17:59 03/11/19 17:32 Metronidazole 100 ml @ 100 mls/hr Q8HR IVPB 03/12/19 15:30 03/19/19 15:29 03/14/19 15:18 Morphine Sulfate (Morphine Sulfate) 2 mg Q4H PRN IVP Severe Pain (Pain Scale 7-10) 03/11/19 19:15 03/18/19 19:14 Ondansetron HCl (Zofran) 4 mg Q4H PRN IVP Nausea & Vomiting 03/06/19 08:15 04/01/19 08:14 Tamsulosin HCl (Flomax) 0.4 mg BID ORAL 03/06/19 09:00 04/02/19 08:59 03/11/19 17:32 Trimethoprim/ Sulfamethoxazole 10 ml/Dextrose 285 ml @ 190 mls/hr Q6HR IV 03/13/19 18:00 03/20/19 17:59 03/14/19 12:05 Vancomycin HCl (Firvanq) 125 mg FOUR TIMES A DAY ORAL 03/09/19 18:00 03/16/19 17:59 03/13/19 20:35 Christine Diaz M.D. Mar 14, 2019 16:59
[2019-03-14] MEDS ORDERED: FLOMAX0.4 MG ORAL (17:32)
[2019-03-14] MEDS ORDERED: IMODIUM MULTI-1 EACH PO (17:33)
--- NOTE | 2019-03-14 18:00 | NUR ---
NURSE NOTES: per dr Emily dc with no abx. patient did not want flu shot.
--- NOTE | 2019-03-14 18:50 | NUR ---
NURSE NOTES: patient is alert and oriented, patient stable, call light and personal belongings in reach. Patient bathed, new dressing applied to sacrum, patient is prepared to be discharged. Discharge packet printed, ANJEL Ewing called to give report [facility], no answer.
--- NOTE | 2019-03-14 19:08 | Surgery Progress Note ---
Surgery Progress Note Subjective Additional Comments Patient seen examined bedside. States he feels well. States he was told he is being discharged today but is not ready. No nausea vomiting fever chills. Still with multiple bowel movements. Abdominal exam stable and unchanged. He still refusing significant portion of his care plan. Objective Last 24 Hour Vital Signs Date Time Temp Pulse Resp B/P (MAP) Pulse Ox O2 Delivery O2 Flow Rate FiO2 03/14/19 16:00 97.0 95 21 116/71 (86) 98 03/14/19 12:00 97.0 99 21 121/71 (88) 98 03/14/19 09:00 Room Air 03/14/19 08:29 97.0 99 21 119/71 (87) 98 03/14/19 04:00 97.0 97 21 116/80 (92) 98 03/13/19 21:15 Room Air 03/13/19 20:00 98.0 96 20 122/79 (93) 99 I&O Intake and Output 03/13/19 03/14/19 18:59 06:59 Intake Total 1145 ml 95 ml Output Total 3 ml Balance 1142 ml 95 ml IV Total 345 ml 95 ml Other 800 ml Stool Total 3 ml Dressing: other Wound: other Cardiovascular: RSR Respiratory: clear Abdomen: soft, non-tender, present bowel sounds, non-distended Extremities: no tenderness, no cyanosis Plan Problems: (1) Decubitus skin ulcer Assessment & Plan: Pt presented on admission with multiple pressure injuries. Blood blisters to ezequiel R tibia and medial L tibia. Full Thickness stage 3 pressure injury Sacrum . Base of wound 60% biofilm,40% viable. Edges are macerated bordered by black and fluctuant base with additional wounds at R sacrum. No odor or exudate noted. Pt complained of pain at site when in supine. Rigidity noted to both lower extremities and pt heels are in continuously in contact. DTPI noted to medial R heel . Base of wound with purple with maroon borders and fluctuant at base (L)4cm x (W)4cm .Periwound R heel is boggy but blanchable. DTPI medial L heel . Base of wound is maroon with scattered purple areas and is fluctuant at base. Periwound L heel is boggy but blanchable. Tx.Plan: Cleanse Sacral wound with Saline. Apply Therahoney. Apply Moisture Barrier periwound. Cover with Optifoam drsg every 3 days and prn. Apply Cavilon Skin Barrier to blood blisters R and L tibia. Cover each wound with Optifoam drsg. Change every 7 days and prn. Apply Cavilon Skin Barrier to both heels. Cover each heel with Optifoam drsg. Change every 7 days and prn. APM/KRISTI Mattress overlay. Reposition at least every 2hours or as tolerated. Place pillow between lower ext to keep Heels apart. Off-load heels with pillow. (2) Colitis Assessment & Plan: Findings: Significant artifact limits evaluation. The lung bases notable for posterior basal atelectasis. Patchy groundglass opacities also noted nonspecific. Trace pericardial fluid demonstrated. No obvious hydronephrosis or stones identified. No obvious free fluid identified. Question of gallstones. Aortoiliac calcifications are present. There is thickening of the wall of the colon especially noted on the right side involving the ascending colon and cecum. Findings suspicious for colitis. Correlate clinically. There is thickening of the wall the urinary bladder. 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 Anasarca noted. IMPRESSION: Limited evaluation due to technical artifacts. Suspected colitis with the thickening of the wall the colon. Correlate clinically. Thickening of the wall the urinary bladder. Correlate for cystitis. -Seen by GI and recommended to have Colonoscopy but declined 1. Trace bilateral pleural effusions. Associated atelectasis. 2. Prominent wall thickening of the entire colon and rectum is concerning for pancolitis and proctitis. 3. Fluid and gas-filled small bowel loops could represent an element of ileus or enteritis. 4. Moderate to large amount of ascites. 5. Anasarca. 6. Wall thickening of the bladder is nonspecific. Please correlate with urinalysis to evaluate for cystitis. exam stable no n/v/f/c I had a long discussion with patient at bedside. explained CT findings, history , current medical condition and recommendation of colonoscopy. patient refused prior and still refusing. discuss with GI and ID etiology of wbc likely colitis but etiology of colitis unknown. would recommend scope to further evaluation will follow up with recs (3) Sepsis Assessment & Plan: febrile t max 104 - resolved leukocytosis lactic acidosis - resolved exam improved CT with colitis worse now likely etiology of sepsis cultures noted ABX as per ID OB stool negative C. difficile negative and repeat C. difficile negative stool culture negative KUB reviewed - No definite acute process. Nonspecific bowel gas pattern. - Markedly abnormal bilateral hips as described. Could represent sequelae of process such as old bilateral avascular necrosis with resultant secondary degenerative change, lung other possibilities improving Imaging labs ordered Still pending work-up of etiology leukocytosis though patient clinically improving will follow with exam and recs okay for diet (4) Nausea vomiting and diarrhea César Romero Mar 14, 2019 19:08
--- NOTE | 2019-03-14 19:32 | NUR ---
HAND-OFF: Report given to Nasir HOBBS.
--- NOTE | 2019-03-14 20:03 | NUR ---
NURSE NOTES: Received patient awake, alert, verbal, resting in bed, awaiting ambulance for transfer to [facility]. Report given to ANJEL Grissom of [facility].
[2019-03-14 20:09] VITALS: BP 121/71
[2019-03-14] MEDS ORDERED: Tubing IV Secondary IV ONE (20:44)
--- NOTE | 2019-03-14 20:48 | NUR ---
NURSE NOTES: Discharged by ambulance to [facility] with essentially normal vital signs.
--- NOTE | 2019-03-17 10:08 | Discharge Summary ---
Discharge Summary Discharge Summary _ DATE OF ADMISSION: 03/02/2019 DATE OF DISCHARGE: 03/14/2019 DISCHARGED BY: Dr. Martel REASON FOR ADMISSION: 63 years old male with past medical history of hypertension, COPD, cocaine abuse in the past, bedbound, presented with complaint of fever , nausea, vomiting and diarrhea for 1 day. According to the report from the half-way facility patient had fever of 104. Vomiting was described as nonbloody and nonbilious along with watery diarrhea. Upon evaluation patient was febrile with temperature 104 , tachycardic with heart rate 138 and hypoxic , requiring oxygen via nasal cannula. Laboratory work-up revealed significant leukocytosis with WBC 26.5, hemoglobin 10.8, hematocrit 32.8 , platelet count 263. ESR 40. Sodium 131, potassium 3.6. Stable renal parameters. Lactic acid 4.2. Troponin - 0.145. EKG revealed sinus tachycardia, no acute ischemic changes. Urinalysis revealed pyuria, moderate bacteria , positive for nitrates, +3 leukocyte esterase. Patient appeared to have an infected hematoma left lower extremity on clinical examination. Patient undergone needle aspiration of the large fluctuant mass. CT of the abdomen and pelvis revealed suspected colitis with the thickening of the wall of the colon. Thickening of the wall of the urinary bladder, correlate for cystitis. Patient started on empiric antibiotic , received fluid challenge and admitted for further management. CONSULTANTS: senior technical business analyst Dr. Salas pulmonary/plant technical specialist Dr. Chavarria ID specialist Dr. Diaz GI specialist Dr. Interiano probation and parole officer Dr. Razo plastic surgery Dr. Ramírez general surgery Dr. Lopes HOSPITAL COURSE: Patient admitted to monitored floor. Serial troponin were closely monitored. Patient started on broad-spectrum antibiotics. DVT prophylaxis provided. Troponin was minimally elevated. Troponin level decreased. EKG showed sinus tachycardia without ST changes on admission. Echocardiogram demonstrated preserved ejection fraction of 60% with no evidence of left ventricular hypertrophy. No evidence of wall motion abnormality. Right ventricular systolic pressure of 34. Mild troponin elevation was probably consistent with demand ischemia, but can not rule out acute coronary syndrome. Process Cheese Cooker recommended consider ischemic evaluation when patient more stable. Lipid panel was stable. Low HDL noted . Patient was started on antiplatelet therapy. GI prophylaxis provided. Blood pressure was closely monitored; patient remained normotensive. Patient initially was on IV hydration, and tachycardia showed improvement and eventually resolved. Supplemental oxygen provided and titrated to keep pulse oximetry above 92%. Pulmonary toilet provided as needed. Patient was followed-up with chest x-ray. Hemoglobin and hematocrit showed drop , and subsequently heparin and aspirin were stopped. Patient was on empiric antibiotic as per ID recommendation. Blood cultures were negative. Urine culture revealed MRSA. Stool for C. difficile was negative. Stool culture was negative ,. Stool for ova and parasite x3 and stool for C. difficile x2 negative as well. Wound culture revealed Staph coagulase negative of the left leg abscess. Rapid HIV test returned positive. T-cell subsets revealed CD4 of 180 . Per ID specialist patient will need to be ruled out for CMV colitis versus HIV enterocolitis vs other opportunistic infection (i. e MAC, parasitic). Follow-up CT scan of the abdomen and pelvis revealed prominent wall thickening of the entire colon and rectum , concerning for pancolitis and proctitis. Fluid and gas-filled small bowel loops could represent an element of ileus or enteritis. Fungal serology was thoroughly checked. RPR was nonreactive. Some labs as ordered by ID specialist still pending. Giardia was negative. Histoplasmosis and Microsporidia still pending. Urine toxicology was positive for opiates. Per ID specialist cytomegalovirus colitis was unlikely given CD4 count. Antibiotics provided as per ID specialist recommendations . Patient was treated for possible Isospora and Cyclospora. Patient was in denial regarding his new diagnosis of HIV. He stated that he does not have HIV . Patient was not interested in starting any antiretroviral therapy at this time. Patient was provided with information including treatment options and prognosis , but patient declined to pursue it. GI specialist followed. Patient initially started on clear liquid diet as tolerated. Patient was followed up with imaging. Hemoglobin and hematocrit were closely monitored with goal to keep hemoglobin above 7. Anemia work-up revealed high ferritin of 716. Stool OB was negative. CEA with mild elevation 5.3. Renal parameters and electrolytes were closely monitored. Electrolytes corrected as needed, and nephrotoxins were avoided. Patient had severe hypomagnesemia with magnesium 1.0 on the next day after admission , which was corrected. Patient also had severe hyponatremia with sodium 123. Hyponatremia work-up was done . Patient received 3% NS . Sodium improved. Patient was followed-up with abdominal x-ray , which revealed no definite acute process. Follow-up CT of the abdomen and pelvis revealed prominent wall thickening of the entire colon and rectum concerning for pancolitis and proctitis. Fluid and gas-filled small bowel could represent element of ileus or enteritis. Moderate to large amount of ascites. Anasarca. GI prophylaxis provided. All stool softeners and laxative were discontinued. Imodium given as needed , Lomotil was given first for persistent diarrhea. Oral hydration was encouraged, in addition patient was on IV hydration . Antiemetic were on board as needed. Patient was recommended to have colonoscopy to rule out noninfectious etiology of diarrhea. Patient refused colonoscopy. Patient was advised to have outpatient colonoscopy since he declined having colonoscopy in the hospital. Patient presented on admission with multiply deep tissues injuries, including full-thickness stage III sacral decubitus . Wound care provided as per surgeon recommendation. Abdominal exam for was stable per surgeon ; no nausea , fever , vomiting , fever or chills. CT scan findings were explained to the patient. No need for surgical intervention at this time. Surgeon also recommended to proceed with colonoscopy, which patient declined ( as mentioned above) . Plastic surgeon seen and evaluated patient as well. Patient had stage III pressure ulcer in the presence of severe protein calorie malnutrition. He recommended offloading every 2 hours . Wound did not appear to be clinically infected , and leukocytosis was not due to the wound. No surgical intervention was necessarily at this time. Protein supplements provided as per registered dietitian recommendation. Patient clinically stabilized and was ready for discharge . Patient will need outpatient follow-up with primary care provider, HIV provider and GI specialist for outpatient colonoscopy if he agrees. FINAL DIAGNOSES Sepsis Colitis Diarrhea Ileitis or enteritis Elevated troponin , possibly acute coronary syndrome versus demand ischemia Severe dehydration with hypovolemia HIV, newly diagnosed UTI with MRSA History of hypertension COPD BPH Sacral decubitus stage III ,present on admission Anemia Severe hypomagnesemia, likely due to diarrhea- resolved Acute hyponatremia - resolved Protein calorie malnutrition DISCHARGE MEDICATIONS: See Medication Reconciliation list. DISCHARGE INSTRUCTIONS: Patient was discharged to the half-way facility. Follow up with medical doctor at the facility. Luicana Camarillo NP Mar 17, 2019 10:08
== END 2019-03-14 20:45 | DRG 871 ==
LOC: EDBD 04:09 → EMR 04:30 → 2E 04:48 → EDBEDREQ 06:00 → 4E 03-06 06:09
DX: A41.9 Sepsis, unspecified organism (principal); L89.153 Pressure ulcer of sacral region, stage 3; J18.9 Pneumonia, unspecified organism; E87.1 Hypo-osmolality and hyponatremia; N39.0 Urinary tract infection, site not specified; I24.9 Acute ischemic heart disease, unspecified; I24.8 Other forms of acute ischemic heart disease; E46 Unspecified protein-calorie malnutrition; J44.1 Chronic obstructive pulmonary disease with (acute) exacerbation; I10 Essential (primary) hypertension; N40.0 Benign prostatic hyperplasia without lower urinary tract symptoms; E86.0 Dehydration; E86.1 Hypovolemia; D64.9 Anemia, unspecified; K52.9 Noninfective gastroenteritis and colitis, unspecified; F14.11 Cocaine abuse, in remission; B95.62 Methicillin resistant Staphylococcus aureus infection as the cause of diseases classified elsewhere; E83.42 Hypomagnesemia; Y95 Nosocomial condition; I36.1 Nonrheumatic tricuspid (valve) insufficiency; L89.626 Pressure-induced deep tissue damage of left heel; L89.616 Pressure-induced deep tissue damage of right heel
CPT/HCPCS: 36415; 71045; 74018; 74176; 74177; 80048; 80053; 80061; 80076; 80307; 81003; 82270; 82378; 82553; 82607; 82728; 82746; 83540; 83550; 83605; 83615; 83690; 83735; 83930; 83935; 84100; 84300; 84439; 84443; 84481; 84484; 84550; 85007; 85025; 85044; 85060; 85610; 85651; 85730; 86140; 86360; 86592; 86682; 86689; 86703; 86753; 87040; 87045; 87070; 87081; 87086; 87181; 87205; 87207; 87324; 87329; 87385; 87536; 93005; 93306; 96361; 96365; 96367; 96375; 99291; J2405; J7030

== ENCOUNTER 2019-07-08 17:18 | Inpatient (IN) | payer MEDICARE, OTHER ==
[~2019-07-08] VITALS: Ht 182.9 cm; Wt 75.0 kg
[2019-07-08] MEDS: D5 1/2NS 1,000 ML IV SCH (03:45)
[~2019-07-08 17:18] MED LIST: ACETAMINOPHEN325 M1 ORAL; BISACODYL5 MG ORAL; CLARITIN10 M2 ORAL; COZAAR50 MG ORAL; DOCUSATE SODIU100 MG ORAL; DUONEB 0.5-3(2.53 ML HHN; FAMOTIDINE20 MG ORAL; FLEET ENEMA133 ML RECTAL; FLOMAX0.4 MG ORAL; HYDRALAZINE HCL50 MG ORAL; IMODIUM MULTI-1 EACH PO; LYRICA75 M1 ORAL; MILK OF MA400 MG/51 ORAL; ZOFRAN 4 MG4 MG/2 ML IV
--- NOTE | 2019-07-08 17:39 | Emergency Room Report ---
History of Present Illness General Chief Complaint: Altered Level of Consciousness Source: Patient, EMS Present Illness HPI [facility] for altered mentation. There were variable reports about his mental status. 1 staff member was adamant that this was a change for him. The patient is answering questions however his accuracy is questionable. He denies pain, nausea, vomiting, diarrhea, dysuria, fevers or chills. The patient does have a wound on his left leg. He denies pain there also. Paramedics report normal glucose in the field. Past hospitalization 03/06 d/c: Sepsis Colitis Diarrhea Ileitis or enteritis Elevated troponin , possibly acute coronary syndrome versus demand ischemia Severe dehydration with hypovolemia HIV, newly diagnosed UTI with MRSA History of hypertension COPD BPH Sacral decubitus stage III ,present on admission Anemia Severe hypomagnesemia, likely due to diarrhea- resolved Acute hyponatremia - resolved Protein calorie malnutrition COVID-19 risk:Contact w/high r: No COVID-19 risk:Travel to affect: No Has patient experienced leung: No Allergies: Coded Allergies: No Known Allergies (Unverified , 03/02/19) Patient History Limited by: medical condition Past Medical History: see triage record, old chart reviewed Past Surgical History: other - left leg decub Social History: Denies: smoking Social History Narrative [facility] Reviewed Nursing Documentation: PMH: Agreed; PSxH: Agreed Nursing Documentation-PMH Hx Cardiac Problems: Yes Hx Hypertension: Yes Hx COPD: Yes - emphysema Hx Cancer: No Hx Gastrointestinal Problems: No Hx Neurological Problems: No Review of Systems All Other Systems: limited Physical Exam Vital Signs Date Time Temp Pulse Resp B/P (MAP) Pulse Ox O2 Delivery O2 Flow Rate FiO2 07/08/19 17:25 99.0 70 18 118/70 (86) 98 Room Air Sp02 EP Interpretation: reviewed, normal General Appearance: no apparent distress, non-toxic, lethargic, thin, Chronically Ill Head: normocephalic Eyes: bilateral eye normal inspection, bilateral eye PERRL, bilateral eye EOMI ENT: moist mucus membranes Neck: supple Respiratory: lungs clear, normal breath sounds Cardiovascular #1: regular rate, rhythm, no edema Cardiovascular #2: 2+ radial (R) Gastrointestinal: normal inspection, non tender, no mass, non-distended, decreased bowel sounds Genitourinary: no CVA tenderness Musculoskeletal: back normal, decreased range of motion - feet, other - contractures L>R foot/ankle Neurologic: DTRs symmetric, sensory intact, motor weakness - diffuse, slightly more L Reflexes: 1+ knee (R) - slow relaxation, 1+ knee (L) - slow relaxation Skin: Decubitus/Ulcer - L calf - deep, no erythema or drainage. Two lesions anteriorly, stage 3, no erythema Procedures Critical Care Time Critical Care Time Total Critical Care Time: 45 min bedside evaluation and treatment excludes procedures (EKG). Reason for critical care: hypothermia, sepsis, pancreatitis, hypothyroidism Possible complications: hypotension, hypertension, UT, shock, arrhythmias, metabolic acidosis, end organ damage, respiratory failure. Interventions: fluids, antibiotics, rewarming, cardiac monitoring, hydrocortisone Course: Patient with ALOC. Hypothermia. Sepsis suspected and treated with fluids and antibiotics. Pancreatitis - US. Pancreatic duct dilatation. Not surgical abdomen. Repeat evaluations. Improved temp. Hydrocortisone for hypothyroidism. Discussions with floor RN. Discussion with admitting MD. Consultations: nursing staff, EMS, [employer] tech, admitting MD Performed by: Dr. Enamorado Tolerated well condition = serious Medical Decision Making Diagnostic Impression: Primary Impression: Hypothermia Qualified Codes: T68.XXXA - Hypothermia, initial encounter Additional Impressions: Altered sensorium Renal failure Qualified Codes: N17.9 - Acute kidney failure, unspecified Pancreatitis Qualified Codes: K85.80 - Other acute pancreatitis without necrosis or infection Sepsis Qualified Codes: A41.9 - Sepsis, unspecified organism; R65.20 - Severe sepsis without septic shock; N17.9 - Acute kidney failure, unspecified Decubitus skin ulcer Qualified Codes: L89.894 - Pressure ulcer of other site, stage 4 Hypothyroid Qualified Codes: E03.9 - Hypothyroidism, unspecified ER Course Patient presents with altered mentation and hypothermia. Differential includes sepsis, adverse reaction to medication, hypothyroidism, electrolyte imbalance amongst others. Evaluation with EKG, chest x-ray and labs. Rewarming measures will be actively taken. Patient has a nonfocal neurologic exam at this time and cerebral cause unlikely. IV hydration begun. EKG sinus rhythm with PVC with low voltage QRS and possible Lin wave in II and aVF. WBC 19. CXR with atelectasis/scar but no infiltrate. Will start Abx for possible other source. 181 Mentation improved. Answering questions. Slow response. Cap fill good. BUN creat elevated from prior. Lactic acid normal. Attempt pass keith. Unable. Bladder 300 ml. No hydro. No cholecystitis. Pancreatic duct dilated. Abd still non-tender. Temp improving. But as still low, admit tele. No beds. Keep in ED until temp improved. Mentation improved. Other VS stable. As possible hypothyroid, hydrocortisone ordered. T4 and T3 low. Keith passed by RN. Temp improved. Admitted floor. Laboratory Tests Test 07/08/19 17:15 07/08/19 22:30 07/08/19 23:05 White Blood Count 19.9 K/UL (4.8-10.8) H Red Blood Count 3.43 M/UL (4.70-6.10) L Hemoglobin 9.2 G/DL (14.2-18.0) L Hematocrit 28.2 % (42.0-52.0) L Mean Corpuscular Volume 82 FL (80-99) Mean Corpuscular Hemoglobin 26.9 PG (27.0-31.0) L Mean Corpuscular Hemoglobin Concent 32.7 G/DL (32.0-36.0) Red Cell Distribution Width 19.2 % (11.6-14.8) H Platelet Count 111 K/UL (150-450) L Mean Platelet Volume 9.8 FL (6.5-10.1) Neutrophils (%) (Auto) % (45.0-75.0) Lymphocytes (%) (Auto) % (20.0-45.0) Monocytes (%) (Auto) % (1.0-10.0) Eosinophils (%) (Auto) % (0.0-3.0) Basophils (%) (Auto) % (0.0-2.0) Differential Total Cells Counted 100 Neutrophils % (Manual) 91 % (45-75) H Lymphocytes % (Manual) 4 % (20-45) L Monocytes % (Manual) 5 % (1-10) Eosinophils % (Manual) 0 % (0-3) Basophils % (Manual) 0 % (0-2) Band Neutrophils 0 % (0-8) Platelet Estimate Decreased L Platelet Morphology Normal Polychromasia 1+ Anisocytosis 2+ Erythrocyte Sedimentation Rate 107 MM/HR (0-20) H Prothrombin Time 11.2 SEC (9.30-11.50) Prothrombin Time INR 1.1 (0.9-1.1) Activated Partial Thromboplast Time 36 SEC (23-33) H Sodium Level 142 MMOL/L (136-145) Potassium Level 4.4 MMOL/L (3.5-5.1) Chloride Level 116 MMOL/L (98-107) H Carbon Dioxide Level 13 MMOL/L (21-32) L Anion Gap 13 mmol/L (5-15) Blood Urea Nitrogen 40 mg/dL (7-18) H Creatinine 2.6 MG/DL (0.55-1.30) H Estimated Glomerular Filtration Rate 30.2 mL/min (>60) Glucose Level 94 MG/DL (74-106) Lactic Acid Level 0.90 mmol/L (0.4-2.0) Uric Acid 11.7 MG/DL (2.6-7.2) H Calcium Level 8.8 MG/DL (8.5-10.1) Phosphorus Level 4.3 MG/DL (2.5-4.9) Magnesium Level 1.6 MG/DL (1.8-2.4) L Total Bilirubin 0.2 MG/DL (0.2-1.0) Aspartate Amino Transferase (AST) 41 U/L (15-37) H Alanine Aminotransferase (ALT) 20 U/L (12-78) Alkaline Phosphatase 112 U/L (46-116) Total Creatine Kinase 121 U/L (26-308) Troponin I 0.039 ng/mL (0.000-0.056) C-Reactive Protein, Quantitative 11.4 mg/dL (0.00-0.90) H Pro-B-Type Natriuretic Peptide 1271 pg/mL (0-125) H Total Protein 6.9 G/DL (6.4-8.2) Albumin 1.7 G/DL (3.4-5.0) L Globulin 5.2 g/dL Albumin/Globulin Ratio 0.3 (1.0-2.7) L Lipase > 2000 U/L (73-393) H Thyroid Stimulating Hormone (TSH) 3.137 uiU/mL (0.358-3.740) Free Thyroxine 0.60 NG/DL (0.76-1.46) L Urine Color Pale yellow Urine Appearance Clear Urine pH 6 (4.5-8.0) Urine Specific Sutter 1.010 (1.005-1.035) Urine Protein 2+ (NEGATIVE) H Urine Glucose (UA) Negative (NEGATIVE) Urine Ketones Negative (NEGATIVE) Urine Blood 5+ (NEGATIVE) H Urine Nitrite Negative (NEGATIVE) Urine Bilirubin Negative (NEGATIVE) Urine Urobilinogen Normal MG/DL (0.0-1.0) Urine Leukocyte Esterase 1+ (NEGATIVE) H Urine RBC Tntc /HPF (0 - 0) H Urine WBC 2-4 /HPF (0 - 0) Urine Squamous Epithelial Cells None /LPF (NONE/OCC) Urine Bacteria Few /HPF (NONE) Urine Eosinophils None seen (NONE SEEN) Urine Osmolality 364 mOsm/kg (429-449) L Urine Random Sodium 34 mmol/L (20-110) Urine Opiates Screen Negative (NEGATIVE) Urine Barbiturates Screen Negative (NEGATIVE) Phencyclidine (PCP) Screen Negative (NEGATIVE) Urine Amphetamines Screen Negative (NEGATIVE) Urine Benzodiazepines Screen Negative (NEGATIVE) Urine Cocaine Screen Negative (NEGATIVE) Urine Marijuana (THC) Screen Negative (NEGATIVE) Triiodothyonine (T3) Pending Free Triiodothyronine 0.6 pg/mL (2.3-4.2) L EKG Diagnostic Results Rate: normal Rhythm: NSR ST Segments: no acute changes - Nonspecific ST-T wave changes Rhythm Strip Diag. Results EP Interpretation: yes Rhythm: NSR, no PVC's, no ectopy Chest X-Ray Diagnostic Results Chest X-Ray Diagnostic Results : Chest X-Ray Ordered: Yes # of Views/Limited/Complete: 1 View Indication: Other EP Interpretation: Yes Interpretation: no effusion, no pneumothorax, other - scarring/atelectasis L base Impression: Other Electronically Signed by: Electronically signed by Armand Enamorado MD Last Vital Signs Date Time Temp Pulse Resp B/P (MAP) Pulse Ox O2 Delivery O2 Flow Rate FiO2 07/08/19 23:50 95.1 108 16 109/72 98 Room Air Status: improved Disposition: ADMITTED INPATIENT Condition: Serious Armand Enamorado MD Jul 08, 2019 17:39
[2019-07-08 17:40] VITALS: BP 118/70
[2019-07-08 17:57] LABS: HEMATOCRIT 28.2 % (42.0-52.0); HEMOGLOBIN 9.2 G/DL (14.2-18.0); MEAN CORPUSCULAR VOLUME 82 FL (80-99); PLATELET COUNT 111 K/UL (150-450); RED BLOOD COUNT 3.43 M/UL (4.70-6.10); RED CELL DISTRIBUTION WIDTH 19.2 % (11.6-14.8); WHITE BLOOD COUNT 19.9 K/UL (4.8-10.8)
[2019-07-08 18:03] LABS: INR 1.1 (0.9-1.1)
[2019-07-08 18:28] LABS: ANION GAP 13 mmol/L (5-15); BLOOD UREA NITROGEN 40 mg/dL (7-18); CALCIUM 8.8 MG/DL (8.5-10.1); CARBON DIOXIDE 13 MMOL/L (21-32); CHLORIDE 116 MMOL/L (98-107); CREATININE 2.6 MG/DL (0.55-1.30); POTASSIUM 4.4 MMOL/L (3.5-5.1); SODIUM 142 MMOL/L (136-145)
[2019-07-08] MEDS ORDERED: Cefepime HCl 1 GM in D5W 55 ML IVPB ONE (18:30)
[2019-07-08] MEDS ORDERED: Vancomycin 1 GM in NS 275 ML IVPB ONE (18:30)
[2019-07-08] MEDS ORDERED: NORCO 5-325 TA1 EAC1 ORAL (18:31)
[2019-07-08] MEDS ORDERED: VITAMIN C250 MG ORAL (18:31)
[2019-07-08] MEDS ORDERED: LOVENOX10 M4 SUBQ (18:31)
[2019-07-08] MEDS ORDERED: MULTI-VITAMIN1 EACH PO (18:31)
[2019-07-08 18:41] LABS: ALANINE AMINOTRANSFERASE 20 U/L (12-78); ALBUMIN 1.7 G/DL (3.4-5.0); ALBUMIN/GLOBULIN RATIO 0.3 (1.0-2.7); ALKALINE PHOSPHATASE 112 U/L (46-116); ASPARTATE AMINO TRANSFERASE 41 U/L (15-37); BILIRUBIN,TOTAL 0.2 MG/DL (0.2-1.0); CREATINE KINASE 121 U/L (26-308); PHOSPHORUS 4.3 MG/DL (2.5-4.9)
[2019-07-08] MEDS ORDERED: Albuterol/Ipratropium 3ml neb HHN PRN (19:45)
[2019-07-08] MEDS ORDERED: Nitroglycerin Subl 0.4mg tab SL PRN (19:45)
[2019-07-08] MEDS ORDERED: Miralax 17gm pkt ORAL PRN (19:45)
[2019-07-08 20:24] VITALS: BP 121/72
--- NOTE | 2019-07-08 21:10 | Diagnostic Imaging Report ---
Indication: Abdominal pain. Elevated lipase Technique: Grayscale and duplex Doppler imaging of the abdomen performed. Comparison: None Findings: The liver is unremarkable. Doppler interrogation of the main portal vein shows patency with hepatopedal, monophasic flow. Mild biliary ductal dilatation is seen. The CBD is about 8 mm. Consider further evaluation with CT or MRCP. Gallbladder wall is prominent but the gallbladder is not fully distended. No obvious gallstones seen. There demonstrated part of the pancreas, aorta and IVC show no definite abnormalities. Renal cortical echogenicity is abnormally increased. Correlate for chronic renal disease. Renal volume in size are normal. There is no hydronephrosis. IMPRESSION: Mild intrahepatic biliary ductal dilatation. If the bilirubin is elevated consider MRCP or CT. Contracted gallbladder. Possible medical renal disease. Unremarkable pancreas. In terms of imaging in the setting of pancreatitis, CT would be preferred.
[2019-07-08] MEDS: Heparin 5000 units/ml inj SUBQ SCH (21:50)
[2019-07-08] MEDS: HydrALAZINE 50mg tab ORAL SCH (22:00)
[2019-07-08 22:24] VITALS: BP 121/72
[2019-07-08] MEDS ORDERED: Hydrocortisone 100mg Inj IV ONE (22:45)
[2019-07-08 23:43] VITALS: BP 109/72
[2019-07-09] VITALS (7 sets, daily range): BP systolic 95–129; BP diastolic 48–81
[2019-07-09 00:51] LABS: APPEARANCE,URINE CLEAR; BILIRUBIN, URINE NEGATIVE (NEGATIVE); COLOR,URINE PALE YELLOW; GLUCOSE, URINE (UA) NEGATIVE (NEGATIVE); KETONES,URINE NEGATIVE (NEGATIVE); LEUKOCYTE ESTERASE ,URINE 1+ (NEGATIVE); NITRITE,URINE NEGATIVE (NEGATIVE); PH,URINE 6 (4.5-8.0); PROTEIN,URINE 2+ (NEGATIVE); UROBILINOGEN,URINE NORMAL MG/DL (0.0-1.0)
[2019-07-09] MEDS: D5 1/2NS 1,000 ML IV SCH ×3 (03:45→16:33)
[2019-07-09] MEDS ORDERED: Vancomycin 1 GM in D5W 275 ML IVPB ONE (06:00)
[2019-07-09] MEDS: HydrALAZINE 50mg tab ORAL SCH ×2 (06:00→13:18)
[2019-07-09] MEDS: Heparin 5000 units/ml inj SUBQ SCH ×2 (09:00→20:42)
[2019-07-09] MEDS: Tamsulosin 0.4mg cap ORAL SCH ×2 (09:00→17:41)
[2019-07-09] MEDS: Lyrica 50mg cap ORAL SCH ×3 (09:00→17:42)
--- NOTE | 2019-07-09 12:55 | Diagnostic Imaging Report ---
Indication: Dyspnea Comparison: 03/10/2019 A single view chest radiograph was obtained. Findings: No definite infiltrate or pulmonary vascular congestion identified. There is minimal left basal atelectasis versus scarring. The heart is enlarged. The aorta is mildly enlarged consistent with atherosclerotic vascular disease. The bones are osteopenic. There are thoracic vertebral enthesophytes at multiple levels. Impression: No acute disease
[2019-07-09 13:22] LABS: BASOPHILS % (AUTO) 0.6 % (0.0-2.0); EOSINOPHILS % (AUTO) 1.9 % (0.0-3.0); HEMATOCRIT 25.4 % (42.0-52.0); HEMOGLOBIN 8.3 G/DL (14.2-18.0); LYMPHOCYTES % (AUTO) 16.1 % (20.0-45.0); MEAN CORPUSCULAR VOLUME 80 FL (80-99); NEUTROPHILS % (AUTO) 74.4 % (45.0-75.0); PLATELET COUNT 135 K/UL (150-450); RED BLOOD COUNT 3.17 M/UL (4.70-6.10); RED CELL DISTRIBUTION WIDTH 16.5 % (11.6-14.8); WHITE BLOOD COUNT 17.6 K/UL (4.8-10.8)
[2019-07-09 13:48] LABS: PHOSPHORUS 4.5 MG/DL (2.5-4.9)
[2019-07-09 13:50] LABS: ALANINE AMINOTRANSFERASE 16 U/L (12-78); ALBUMIN 1.5 G/DL (3.4-5.0); ALBUMIN/GLOBULIN RATIO 0.3 (1.0-2.7); ALKALINE PHOSPHATASE 99 U/L (46-116); ANION GAP 14 mmol/L (5-15); ASPARTATE AMINO TRANSFERASE 38 U/L (15-37); BILIRUBIN,TOTAL 0.2 MG/DL (0.2-1.0); BLOOD UREA NITROGEN 40 mg/dL (7-18); CALCIUM 8.3 MG/DL (8.5-10.1); CARBON DIOXIDE 12 MMOL/L (21-32); CHLORIDE 118 MMOL/L (98-107); CREATININE 2.7 MG/DL (0.55-1.30); POTASSIUM 4.2 MMOL/L (3.5-5.1); SODIUM 144 MMOL/L (136-145)
[2019-07-09 13:59] LABS: AMYLASE 564 U/L (25-115)
--- NOTE | 2019-07-09 14:32 | Consultation ---
Consult Note Consult Note I was asked to evaluate the patient for renal failure Patient known to me from his previous admission in February 2019 Patient presents from custodial facility via EMS for altered mentation. There were variable reports about his mental status. 1 staff member was adamant that this was a change for him. The patient is answering questions however his accuracy is questionable. He denies pain, nausea, vomiting, diarrhea, dysuria, fevers or chills. The patient does have a wound on his left leg. He denies pain there also. Paramedics report normal glucose in the field. No known allergies Past history significant for Hypertension COPD HIV disease History of colitis and previous sepsis History of BPH Electrolyte imbalances Patient interviewed very poor historian somewhat confused and encephalopathic Data reviewed Old chart reviewed Assessment/Plan Acute renal failure, partly dehydration Anemia Hypoalbuminemia High lipase level of 2000, Pancreatitis UTI Hypothermia Toxic metabolic encephalopathy Sepsis Decubitus skin ulcer Hypothyroid Slow hydrate 2D echocardiogram Kidney ultrasound Urine studies Anemia work-up Monitor renal parameters Antibiotics Avoid nephrotoxic's Per orders Zander Razo MD Jul 09, 2019 14:32
[2019-07-09] MEDS: Sodium Citrate 30ml ORAL SCH ×2 (14:45→17:41)
--- NOTE | 2019-07-09 15:51 | Diagnostic Imaging Report ---
Indication:Elevated Bun and Creatinine. Technique: Grayscale and duplex Doppler imaging of the kidneys performed. Comparison: None Findings: The renal cortex appears echogenic bilaterally suggestive of medical renal disease. There is no hydronephrosis.. The right kidney measures 12.7 cm. in length. The left kidney measures 12.4 cm. in length. The IVC is patent. Urinary bladder is unremarkable. A Macario catheter is noted. IMPRESSION: Suspected medical renal disease
[2019-07-09] MEDS ORDERED: Albumin Human 5% 500ml IV SCH (16:00)
[2019-07-09] MEDS: Cefepime HCl 2 GM in D5W 110 ML IV SCH (17:48)
--- NOTE | 2019-07-09 18:00 | History and Physical ---
History of Present Illness General Reason for Hospitalization: Altered Level of Consciousness Present Illness Allergies: Coded Allergies: No Known Allergies (Unverified , 03/02/19) Medication History Scheduled Ascorbic Acid* (Vitamin C*), 250 MG ORAL BID, (Reported) Bisacodyl* (Dulcolax*), 10 MG ORAL ONCE, (Reported) Docusate Sodium* (Docusate Sodium*), 100 MG ORAL TWICE A DAY, (Reported) Enoxaparin* (Lovenox*), 40 MG SUBQ DAILY, (Reported) Famotidine* (Pepcid 20mg tablet*), 20 MG ORAL TWICE A DAY, (Reported) Hydralazine Hcl* (Hydralazine Hcl*), 50 MG ORAL EVERY 8 HOURS, (Reported) Loratadine (Claritin), 10 MG ORAL DAILY, (Reported) Losartan Potassium* (Cozaar*), 100 MG ORAL DAILY, (Reported) Magnesium Hydroxide* (Milk Of Magnesia*), 30 ML ORAL PRN, (Reported) Na Phos,M-B/Na Phos,Di-Ba* (Fleet Enema*), 133 ML RECTAL DAILY, (Reported) Pregabalin* (Lyrica*), 50 MG ORAL THREE TIMES A DAY, (Reported) Tamsulosin HCl (Flomax), 0.4 MG ORAL DAILY, (Reported) Tamsulosin HCl (Flomax), 0.4 MG ORAL BID, (Reported) Scheduled PRN Acetaminophen* (Acetaminophen 325MG Tablet*), 650 MG ORAL Q6H PRN for Pain Scale (3-5), (Reported) Hydrocodone Bit/Acetaminophen 5-325* ([place] 5-325 Tablet*), 1 TAB ORAL Q4H PRN for For Pain, (Reported) Loperamide Hcl/Simethicone (Imodium Multi-Symptom Rel Cplt), 1 EACH PO Q4HR PRN for Diarrhea, (Reported) Ondansetron* (Zofran*), 4 MG IV Q8H PRN for Nausea & Vomiting, (Reported) Miscellaneous Medications Ipratropium/Albuterol Sulfate (DuoNeb 0.5-3(2.5)mg/3ml), 3 ML HHN, (Reported) Multivitamin (Multi-Vitamin Daily), 1 EACH PO, (Reported) Patient History Healthcare decision maker N Resuscitation status Full Code Advanced Directive on File Physical Exam Physical Exam Narrative General Appearance: WD/WN HEENT: normocephalic, atraumatic Respiratory/Chest: chest wall non-tender, lungs clear Cardiovascular: normal peripheral pulses Abdomen: normal bowel sounds, soft, non tender Genitourinary: normal external genitalia Extremities: no cyanosis, multiple decubiti Last 24 Hour Vital Signs Date Time Temp Pulse Resp B/P (MAP) Pulse Ox O2 Delivery O2 Flow Rate FiO2 07/09/19 16:00 98.8 74 19 129/78 (95) 97 07/09/19 13:18 120/59 07/09/19 12:00 99.0 111 22 120/59 (79) 96 07/09/19 09:00 Room Air 07/09/19 08:00 99.3 118 22 95/57 (70) 98 07/09/19 06:00 101/60 07/09/19 03:38 98.2 114 20 117/48 (71) 96 07/09/19 01:00 Room Air 07/09/19 00:00 95.4 104 20 100/56 (71) 97 07/08/19 23:50 95.1 108 16 109/72 98 Room Air 07/08/19 23:43 95.1 108 16 109/72 98 Room Air 07/08/19 22:24 92.5 88 16 121/72 98 Room Air 07/08/19 22:00 109/70 07/08/19 20:24 90.5 88 16 121/72 98 Room Air Intake and Output 07/08/19 07/09/19 19:00 07:00 Intake Total 500 ml Output Total 1350 ml Balance -850 ml Intake IV Total 500 ml Output Urine Total 1350 ml # Bowel Movements 2 Laboratory Tests Test 07/08/19 22:30 07/08/19 23:05 07/09/19 12:36 07/09/19 17:00 Urine Color Pale yellow Urine Appearance Clear Urine pH 6 (4.5-8.0) Urine Specific [place] 1.010 (1.005-1.035) Urine Protein 2+ (NEGATIVE) H Urine Glucose (UA) Negative (NEGATIVE) Urine Ketones Negative (NEGATIVE) Urine Blood 5+ (NEGATIVE) H Urine Nitrite Negative (NEGATIVE) Urine Bilirubin Negative (NEGATIVE) Urine Urobilinogen Normal MG/DL (0.0-1.0) Urine Leukocyte Esterase 1+ (NEGATIVE) H Urine RBC Tntc /HPF (0 - 0) H Urine WBC 2-4 /HPF (0 - 0) Urine Squamous Epithelial Cells None /LPF (NONE/OCC) Urine Bacteria Few /HPF (NONE) Urine Eosinophils None seen (NONE SEEN) Urine Osmolality 364 mOsm/kg (429-449) L Urine Random Sodium 34 mmol/L (20-110) Pending Urine Opiates Screen Negative (NEGATIVE) Urine Barbiturates Screen Negative (NEGATIVE) Phencyclidine (PCP) Screen Negative (NEGATIVE) Urine Amphetamines Screen Negative (NEGATIVE) Urine Benzodiazepines Screen Negative (NEGATIVE) Urine Cocaine Screen Negative (NEGATIVE) Urine Marijuana (THC) Screen Negative (NEGATIVE) Triiodothyonine (T3) Pending Free Triiodothyronine 0.6 pg/mL (2.3-4.2) L White Blood Count 17.6 K/UL (4.8-10.8) H Red Blood Count 3.17 M/UL (4.70-6.10) L Hemoglobin 8.3 G/DL (14.2-18.0) L Hematocrit 25.4 % (42.0-52.0) L Mean Corpuscular Volume 80 FL (80-99) Mean Corpuscular Hemoglobin 26.3 PG (27.0-31.0) L Mean Corpuscular Hemoglobin Concent 32.8 G/DL (32.0-36.0) Red Cell Distribution Width 16.5 % (11.6-14.8) H Platelet Count 135 K/UL (150-450) L Mean Platelet Volume 7.0 FL (6.5-10.1) Neutrophils (%) (Auto) 74.4 % (45.0-75.0) Lymphocytes (%) (Auto) 16.1 % (20.0-45.0) L Monocytes (%) (Auto) 7.0 % (1.0-10.0) Eosinophils (%) (Auto) 1.9 % (0.0-3.0) Basophils (%) (Auto) 0.6 % (0.0-2.0) Erythrocyte Sedimentation Rate 114 MM/HR (0-20) H Sodium Level 144 MMOL/L (136-145) Potassium Level 4.2 MMOL/L (3.5-5.1) Chloride Level 118 MMOL/L (98-107) H Carbon Dioxide Level 12 MMOL/L (21-32) L Anion Gap 14 mmol/L (5-15) Blood Urea Nitrogen 40 mg/dL (7-18) H Creatinine 2.7 MG/DL (0.55-1.30) H Estimat Glomerular Filtration Rate 28.8 mL/min (>60) Glucose Level 94 MG/DL (74-106) Osmolality 310 mOsm/kg (297-317) Calcium Level 8.3 MG/DL (8.5-10.1) L Phosphorus Level 4.5 MG/DL (2.5-4.9) Total Bilirubin 0.2 MG/DL (0.2-1.0) Aspartate Amino Transf (AST/SGOT) 38 U/L (15-37) H Alanine Aminotransferase (ALT/SGPT) 16 U/L (12-78) Alkaline Phosphatase 99 U/L (46-116) C-Reactive Protein, Quantitative 11.7 mg/dL (0.00-0.90) H Total Protein 6.3 G/DL (6.4-8.2) L Albumin 1.5 G/DL (3.4-5.0) L Globulin 4.8 g/dL Albumin/Globulin Ratio 0.3 (1.0-2.7) L Amylase Level 564 U/L (25-115) *H Lipase > 2000 U/L (73-393) H Height (Feet): 6 Height (Inches): 0.00 Weight (Pounds): 160 Medications Current Medications Medications (Trade) Dose Ordered Sig/Deborah Route PRN Reason Start Time Stop Time Status Last Admin Dose Admin Acetaminophen (Tylenol) 650 mg Q4H PRN ORAL fever 07/08/19 19:45 08/07/19 19:44 Albuterol/ Ipratropium (Albuterol/ Ipratropium) 3 ml Q4H PRN HHN Shortness of Breath 07/08/19 19:45 07/13/19 19:44 Cefepime HCl 2 gm/ Dextrose 110 ml @ 220 mls/hr Q24H IV 07/09/19 18:00 07/16/19 17:59 07/09/19 17:48 Dextrose (Dextrose 50%) 25 ml Q30M PRN IV Hypoglycemia 07/08/19 19:45 10/06/19 19:44 Dextrose (Dextrose 50%) 50 ml Q30M PRN IV Hypoglycemia 07/08/19 19:45 10/06/19 19:44 Dextrose/Sodium Chloride 1,000 ml @ 125 mls/hr Q8H IV 07/08/19 19:45 08/07/19 19:44 07/09/19 16:33 Heparin Sodium (Porcine) (Heparin 5000 units/ml) 5,000 units EVERY 12 HOURS SUBQ 07/08/19 21:00 08/22/19 20:59 07/08/19 21:50 Hydralazine HCl (Apresoline) 25 mg Q4HR PRN ORAL BP over 160 systolic 07/09/19 14:45 10/07/19 14:44 Nitroglycerin (Ntg) 0.4 mg Q5M PRN SL Prn Chest Pain 07/08/19 19:45 08/07/19 19:44 Non-Formulary Medication (Non-Formulary Med) 1 ea DAILY ORAL 07/10/19 09:00 08/09/19 08:59 UNV Ondansetron HCl (Zofran) 4 mg Q6H PRN IVP Nausea & Vomiting 07/08/19 19:45 08/07/19 19:44 Pantoprazole (Protonix) 40 mg EVERY 12 HOURS ORAL 07/09/19 21:00 08/08/19 20:59 Polyethylene Glycol (Miralax) 17 gm DAILYPRN PRN ORAL Constipation 07/08/19 19:45 08/07/19 19:44 Pregabalin (Lyrica) 50 mg THREE TIMES A DAY ORAL 07/09/19 09:00 08/08/19 08:59 Sodium Citrate (Bicitra) 30 ml EVERY 6 HOURS ORAL 07/09/19 14:45 08/08/19 14:44 Tamsulosin HCl (Flomax) 0.4 mg BID ORAL 07/09/19 09:00 08/08/19 08:59 Temazepam (Restoril) 15 mg HSPRN PRN ORAL Insomnia 07/08/19 19:45 07/15/19 19:44 Vancomycin HCl (Vanco rx to dose) 1 ea DAILY PRN MISC Per rx protocol 07/08/19 21:15 08/07/19 21:14 Assessment/Plan Problem List: (1) Sepsis ICD Codes: A41.9 - Sepsis, unspecified organism SNOMED: 25181473 Qualifiers: Qualified Codes: A41.9 - Sepsis, unspecified organism; R65.20 - Severe sepsis without septic shock; N17.9 - Acute kidney failure, unspecified (2) Altered level of consciousness ICD Codes: R40.4 - Transient alteration of awareness SNOMED: 1478474 (3) COPD (chronic obstructive pulmonary disease) ICD Codes: J44.9 - Chronic obstructive pulmonary disease, unspecified SNOMED: 77298958 (4) Pancreatitis ICD Codes: K85.90 - Acute pancreatitis without necrosis or infection, unspecified SNOMED: 04651437 Qualifiers: Qualified Codes: K85.80 - Other acute pancreatitis without necrosis or infection (5) Decubitus skin ulcer ICD Codes: L89.90 - Pressure ulcer of unspecified site, unspecified stage SNOMED: 097789616 Qualifiers: Qualified Codes: L89.894 - Pressure ulcer of other site, stage 4 (6) Hypertension ICD Codes: I10 - Essential (primary) hypertension SNOMED: 81122066 (7) BPH (benign prostatic hyperplasia) ICD Codes: N40.0 - Benign prostatic hyperplasia without lower urinary tract symptoms SNOMED: 102480197 (8) HIV disease ICD Codes: B20 - Human immunodeficiency virus [HIV] disease SNOMED: 35288690 Assessment/Plan: wound care iv abx adams culture f/u amylase lipase swallow study NPO IV fluids Renal, GI and ID evaluation dvt prophylaxis. Rico Chavarria MD Jul 09, 2019 18:00
[2019-07-09] MEDS ORDERED: PREGABALIN50 MG PO (20:22)
[2019-07-09] MEDS ORDERED: MEGESTROL400 MG/11 PO (20:22)
[2019-07-09] MEDS ORDERED: PRO-STAT LIQUID30 ML ORAL (20:22)
[2019-07-09] MEDS ORDERED: ZINC SULFATE220 M1 ORAL (20:22)
[2019-07-09] MEDS ORDERED: LOSARTAN POTAS100 MG ORAL (20:22)
[2019-07-09] MEDS ORDERED: MULTIVITAMINS1 EA13 ORAL (20:22)
[2019-07-09] MEDS ORDERED: HydrALAZINE 25mg tab ORAL SCH (22:00)
[2019-07-10] MEDS: D5 1/2NS 1,000 ML IV SCH ×5 (03:35→20:09)
[2019-07-10 03:48] VITALS: BP 102/61
[2019-07-10] MEDS: Sodium Citrate 30ml ORAL SCH ×4 (06:00→18:00)
[2019-07-10 06:30] LABS: HEMATOCRIT 21.2 % (42.0-52.0); HEMOGLOBIN 7.1 G/DL (14.2-18.0); MEAN CORPUSCULAR VOLUME 81 FL (80-99); PLATELET COUNT 124 K/UL (150-450); RED BLOOD COUNT 2.62 M/UL (4.70-6.10); RED CELL DISTRIBUTION WIDTH 17.3 % (11.6-14.8); WHITE BLOOD COUNT 14.8 K/UL (4.8-10.8)
[2019-07-10 06:57] LABS: % IRON SATURATION 47 % (15-50); IRON 37 ug/dL (50-175); TOTAL IRON BINDING CAPACITY 78 ug/dL (250-450)
[2019-07-10 07:09] LABS: ALANINE AMINOTRANSFERASE 15 U/L (12-78); ALBUMIN 1.6 G/DL (3.4-5.0); ALBUMIN/GLOBULIN RATIO 0.4 (1.0-2.7); ALKALINE PHOSPHATASE 78 U/L (46-116); ANION GAP 16 mmol/L (5-15); ASPARTATE AMINO TRANSFERASE 27 U/L (15-37); BILIRUBIN,TOTAL 0.2 MG/DL (0.2-1.0); BLOOD UREA NITROGEN 36 mg/dL (7-18); CALCIUM 8.3 MG/DL (8.5-10.1); CARBON DIOXIDE 11 MMOL/L (21-32); CHLORIDE 119 MMOL/L (98-107); CHOLESTEROL 67 MG/DL (< 200); CREATININE 2.4 MG/DL (0.55-1.30); FERRITIN 545 NG/ML (8-388); HDL CHOLESTEROL 15 MG/DL (40-60); POTASSIUM 3.7 MMOL/L (3.5-5.1); SODIUM 146 MMOL/L (136-145); TRIGLYCERIDES 75 MG/DL (30-150)
[2019-07-10 08:00] VITALS: BP 140/88
[2019-07-10 08:28] LABS: PHOSPHORUS 4.5 MG/DL (2.5-4.9)
[2019-07-10 08:29] LABS: CREATINE KINASE 93 U/L (26-308); GAMMA GLUTAMYL TRANSPEPTIDASE 30 U/L (5-85)
[2019-07-10] MEDS: Lyrica 50mg cap ORAL SCH ×3 (09:00→18:00)
[2019-07-10] MEDS: Heparin 5000 units/ml inj SUBQ SCH ×2 (09:00→20:51)
[2019-07-10] MEDS: Tamsulosin 0.4mg cap ORAL SCH ×2 (09:00→18:00)
[2019-07-10] MEDS ORDERED: Vancomycin 1gm/D5W 275ml IVPB SCH ×2 (10:00)
[2019-07-10 12:00] VITALS: BP 110/68
--- NOTE | 2019-07-10 13:01 | Nephrology Progress Note ---
Assessment/Plan Problem List: (1) SKINNY (acute kidney injury) (2) Pancreatitis (3) Hypothermia (4) Hypertension (5) COPD (chronic obstructive pulmonary disease) (6) BPH (benign prostatic hyperplasia) (7) HIV disease (8) Anemia Assessment Acute renal failure, partly dehydration Anemia Hypoalbuminemia High lipase level of 2000, Pancreatitis UTI Hypothermia Toxic metabolic encephalopathy Sepsis Decubitus skin ulcer Hypothyroid Plan Magnesium sulfate IV 24-hour urine measurement for total protein Suggested blood transfusion for low hemoglobin Slow hydrate 2D echocardiogram results suggestive of ejection fraction of 50% Kidney ultrasound unremarkable Urine studies Anemia work-up noted Monitor renal parameters Antibiotics Avoid nephrotoxic's Per orders Subjective ROS Limited/Unobtainable: No Constitutional: Reports: malaise, weakness Objective Objective Last 24 Hour Vital Signs Date Time Temp Pulse Resp B/P (MAP) Pulse Ox O2 Delivery O2 Flow Rate FiO2 07/10/19 09:00 Room Air 07/10/19 08:00 97.8 80 18 140/88 (105) 97 07/10/19 03:48 98.1 106 21 102/61 (75) 98 07/09/19 23:58 96.3 94 20 127/81 (96) 100 07/09/19 21:00 Room Air 07/09/19 20:00 97.4 91 20 103/68 (80) 97 07/09/19 16:00 98.8 74 19 129/78 (95) 97 07/09/19 13:18 120/59 Intake and Output 07/09/19 07/10/19 19:00 07:00 Intake Total 970 ml 1375 ml Output Total 800 ml 800 ml Balance 170 ml 575 ml Intake IV Total 970 ml 1375 ml Output Urine Total 800 ml 800 ml # Bowel Movements 1 Laboratory Tests 07/09/19 17:00: Urine Random Sodium 21 07/10/19 05:10: White Blood Count 14.8H, Red Blood Count 2.62L, Hemoglobin 7.1L, Hematocrit 21.2L, Mean Corpuscular Volume 81, Mean Corpuscular Hemoglobin 27.2, Mean Corpuscular Hemoglobin Concent 33.8, Red Cell Distribution Width 17.3H, Platelet Count 124L, Mean Platelet Volume 7.4, Neutrophils (%) (Auto) , Lymphocytes (%) (Auto) , Monocytes (%) (Auto) , Eosinophils (%) (Auto) , Basophils (%) (Auto) , Differential Total Cells Counted 100, Neutrophils % ( Manual) 74, Lymphocytes % (Manual) 14L, Monocytes % (Manual) 5, Eosinophils % ( Manual) 6H, Basophils % (Manual) 1, Band Neutrophils 0, Platelet Estimate DecreasedL, Platelet Morphology Normal, Hypochromasia 3+, Anisocytosis 1+, Spherocytes 2+, Sodium Level 146H, Potassium Level 3.7, Chloride Level 119H, Carbon Dioxide Level 11L, Anion Gap 16H, Blood Urea Nitrogen 36H, Creatinine 2.4H, Estimat Glomerular Filtration Rate 33.1, Glucose Level 86, Hemoglobin A1c 5.4, Lactic Acid Level 1.10, Uric Acid 11.6H, Calcium Level 8.3L, Phosphorus Level 4.5, Magnesium Level 1.4L, Iron Level 37L, Total Iron Binding Capacity 78L , Percent Iron Saturation 47, Unsaturated Iron Binding 41L, Ferritin 545H, Total Bilirubin 0.2, Gamma Glutamyl Transpeptidase 30, Aspartate Amino Transf ( AST/SGOT) 27, Alanine Aminotransferase (ALT/SGPT) 15, Alkaline Phosphatase 78, Total Creatine Kinase 93, Troponin I 0.470H, C-Reactive Protein, Quantitative 11.7H, Pro-B-Type Natriuretic Peptide 1927H, Total Protein 5.7L, Albumin 1.6L, Globulin 4.1, Albumin/Globulin Ratio 0.4L, Triglycerides Level 75, Cholesterol Level 67, LDL Cholesterol 35, HDL Cholesterol 15L, Cholesterol/HDL Ratio 4.5H, Vitamin B12 Level 934, Folate 3.9L, Cortisol AM Sample [Pending], Random Vancomycin Level 18.6 07/10/19 08:35: Ammonia 22 Height (Feet): 6 Height (Inches): 0.00 Weight (Pounds): 160 General Appearance: no apparent distress, lethargic, confused Cardiovascular: tachycardia Respiratory/Chest: decreased breath sounds Abdomen: distended Zander Razo MD Jul 10, 2019 13:01
[2019-07-10] MEDS: Nitroglycerin Patch 0.4mg TDERMAL SCH (13:26)
[2019-07-10] MEDS ORDERED: Gadavist 7.5mMol/7.5ml vial IV PRN (15:15)
--- NOTE | 2019-07-10 15:34 | Infectious Diseases Prog Note ---
Assessment/Plan Assessment/Plan 63yo man admitted with abdominal pain and diarrhea. Afebrile nl WBC ? ALOC ( Ro brain abscess ) Hx of Diarrhea/colitis- 03/02 CT: Suspected colitis with the thickening of the wall the colon. Correlate clinically. Thickening of the wall the urinary bladder. Correlate for cystitis. C diff negative x2 stool cx negative stool o/p x1 negative -Negative: E. histolytica ab, Echinococcus ab HIV Screen positive- new diagnosis in February 2019 HIV-1 Abt positive. 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 no evid of biliary - US : Mild intrahepatic biliary ductal dilatation. COPD. Hypertension. BPH. History of cocaine abuse in the past. Bedbound. PLAN: Cont pt on IV Vanco and Cefepime # 2 may start pt on Bactrim DC for PCP PPx monitor CBC, temp f/u Bl and Urine Cx pt must follow up with PMD/HIV specialist once discharged MRI of brain CD4 Subjective Allergies: Coded Allergies: No Known Allergies (Unverified , 03/02/19) Objective Vital Signs Last 24 Hour Vital Signs Date Time Temp Pulse Resp B/P (MAP) Pulse Ox O2 Delivery O2 Flow Rate FiO2 07/10/19 13:26 110/68 07/10/19 12:00 98.6 100 20 110/68 (82) 98 07/10/19 09:00 Room Air 07/10/19 08:00 97.8 80 18 140/88 (105) 97 07/10/19 03:48 98.1 106 21 102/61 (75) 98 07/09/19 23:58 96.3 94 20 127/81 (96) 100 07/09/19 21:00 Room Air 07/09/19 20:00 97.4 91 20 103/68 (80) 97 07/09/19 16:00 98.8 74 19 129/78 (95) 97 Height (Feet): 6 Height (Inches): 0.00 Weight (Pounds): 160 Microbiology Date/Time Source Procedure Growth Status 07/08/19 17:36 Blood Blood Culture - Preliminary NO GROWTH AFTER 24 HOURS Resulted 07/08/19 17:15 Blood Blood Culture - Preliminary NO GROWTH AFTER 24 HOURS Resulted Laboratory Tests Test 07/09/19 17:00 07/10/19 05:10 07/10/19 08:35 Urine Random Sodium 21 mmol/L (20-110) White Blood Count 14.8 K/UL (4.8-10.8) H Red Blood Count 2.62 M/UL (4.70-6.10) L Hemoglobin 7.1 G/DL (14.2-18.0) L Hematocrit 21.2 % (42.0-52.0) L Mean Corpuscular Volume 81 FL (80-99) Mean Corpuscular Hemoglobin 27.2 PG (27.0-31.0) Mean Corpuscular Hemoglobin Concent 33.8 G/DL (32.0-36.0) Red Cell Distribution Width 17.3 % (11.6-14.8) H Platelet Count 124 K/UL (150-450) L Mean Platelet Volume 7.4 FL (6.5-10.1) Neutrophils (%) (Auto) % (45.0-75.0) Lymphocytes (%) (Auto) % (20.0-45.0) Monocytes (%) (Auto) % (1.0-10.0) Eosinophils (%) (Auto) % (0.0-3.0) Basophils (%) (Auto) % (0.0-2.0) Differential Total Cells Counted 100 Neutrophils % (Manual) 74 % (45-75) Lymphocytes % (Manual) 14 % (20-45) L Monocytes % (Manual) 5 % (1-10) Eosinophils % (Manual) 6 % (0-3) H Basophils % (Manual) 1 % (0-2) Band Neutrophils 0 % (0-8) Platelet Estimate Decreased L Platelet Morphology Normal Hypochromasia 3+ Anisocytosis 1+ Spherocytes 2+ Sodium Level 146 MMOL/L (136-145) H Potassium Level 3.7 MMOL/L (3.5-5.1) Chloride Level 119 MMOL/L (98-107) H Carbon Dioxide Level 11 MMOL/L (21-32) L Anion Gap 16 mmol/L (5-15) H Blood Urea Nitrogen 36 mg/dL (7-18) H Creatinine 2.4 MG/DL (0.55-1.30) H Estimat Glomerular Filtration Rate 33.1 mL/min (>60) Glucose Level 86 MG/DL (74-106) Hemoglobin A1c 5.4 % (4.3-6.0) Lactic Acid Level 1.10 mmol/L (0.4-2.0) Uric Acid 11.6 MG/DL (2.6-7.2) H Calcium Level 8.3 MG/DL (8.5-10.1) L Phosphorus Level 4.5 MG/DL (2.5-4.9) Magnesium Level 1.4 MG/DL (1.8-2.4) L Iron Level 37 ug/dL (50-175) L Total Iron Binding Capacity 78 ug/dL (250-450) L Percent Iron Saturation 47 % (15-50) Unsaturated Iron Binding 41 ug/dL (112-346) L Ferritin 545 NG/ML (8-388) H Total Bilirubin 0.2 MG/DL (0.2-1.0) Gamma Glutamyl Transpeptidase 30 U/L (5-85) Aspartate Amino Transf (AST/SGOT) 27 U/L (15-37) Alanine Aminotransferase (ALT/SGPT) 15 U/L (12-78) Alkaline Phosphatase 78 U/L (46-116) Total Creatine Kinase 93 U/L (26-308) Troponin I 0.470 ng/mL (0.000-0.056) C-Reactive Protein, Quantitative 11.7 mg/dL (0.00-0.90) H Pro-B-Type Natriuretic Peptide 1927 pg/mL (0-125) H Total Protein 5.7 G/DL (6.4-8.2) L Albumin 1.6 G/DL (3.4-5.0) L Globulin 4.1 g/dL Albumin/Globulin Ratio 0.4 (1.0-2.7) L Triglycerides Level 75 MG/DL (30-150) Cholesterol Level 67 MG/DL (< 200) LDL Cholesterol 35 mg/dL (<100) HDL Cholesterol 15 MG/DL (40-60) L Cholesterol/HDL Ratio 4.5 (3.3-4.4) H Vitamin B12 Level 934 PG/ML (193-986) Folate 3.9 NG/ML (8.6-58.9) L Cortisol AM Sample Pending Random Vancomycin Level 18.6 ug/mL Ammonia 22 umol/L (11-32) Current Medications Medications (Trade) Dose Ordered Sig/Deborah Route PRN Reason Start Time Stop Time Status Last Admin Dose Admin Acetaminophen (Tylenol) 650 mg Q4H PRN ORAL fever 07/08/19 19:45 08/07/19 19:44 Albuterol/ Ipratropium (Albuterol/ Ipratropium) 3 ml Q4H PRN HHN Shortness of Breath 07/08/19 19:45 07/13/19 19:44 Ascorbic Acid (Vitamin C) 500 mg TWICE A DAY ORAL 07/10/19 18:00 08/09/19 17:59 Cefepime HCl 2 gm/ Dextrose 110 ml @ 220 mls/hr Q24H IV 07/09/19 18:00 07/16/19 17:59 07/09/19 17:48 Dextrose (Dextrose 50%) 25 ml Q30M PRN IV Hypoglycemia 07/08/19 19:45 10/06/19 19:44 Dextrose (Dextrose 50%) 50 ml Q30M PRN IV Hypoglycemia 07/08/19 19:45 10/06/19 19:44 Dextrose/Sodium Chloride 1,000 ml @ 125 mls/hr Q8H IV 07/08/19 19:45 08/07/19 19:44 07/10/19 14:33 Folic Acid (Folate) 5 mg DAILY ORAL 07/10/19 09:00 08/09/19 08:59 Gadobutrol (Gadavist) 7.5 mmol NOW PRN IV Radiology Procedure 07/10/19 15:15 07/14/19 15:15 Heparin Sodium (Porcine) (Heparin 5000 units/ml) 5,000 units EVERY 12 HOURS SUBQ 07/08/19 21:00 08/22/19 20:59 07/08/19 21:50 Hydralazine HCl (Apresoline) 25 mg Q4HR PRN ORAL BP over 160 systolic 07/09/19 14:45 10/07/19 14:44 Magnesium Sulfate 100 ml @ 100 mls/hr Q1H IVPB 07/10/19 13:00 07/10/19 16:59 07/10/19 15:23 Multivitamins (Multivitamins) 1 tab DAILY ORAL 07/11/19 09:00 08/10/19 08:59 Nitroglycerin (Ntg) 0.4 mg Q5M PRN SL Prn Chest Pain 07/08/19 19:45 08/07/19 19:44 Nitroglycerin (Ntg) 1 patch Q24H TDERMAL 07/10/19 13:00 08/09/19 12:59 07/10/19 13:26 Ondansetron HCl (Zofran) 4 mg Q6H PRN IVP Nausea & Vomiting 07/08/19 19:45 08/07/19 19:44 Pantoprazole (Protonix) 40 mg EVERY 12 HOURS ORAL 07/09/19 21:00 08/08/19 20:59 Polyethylene Glycol (Miralax) 17 gm DAILYPRN PRN ORAL Constipation 07/08/19 19:45 08/07/19 19:44 Pregabalin (Lyrica) 50 mg THREE TIMES A DAY ORAL 07/09/19 09:00 08/08/19 08:59 Sodium Citrate (Bicitra) 30 ml EVERY 6 HOURS ORAL 07/09/19 14:45 08/08/19 14:44 Tamsulosin HCl (Flomax) 0.4 mg BID ORAL 07/09/19 09:00 08/08/19 08:59 Temazepam (Restoril) 15 mg HSPRN PRN ORAL Insomnia 07/08/19 19:45 07/15/19 19:44 Vancomycin HCl (Vanco rx to dose) 1 ea DAILY PRN MISC Per rx protocol 07/08/19 21:15 08/07/19 21:14 Zinc Sulfate (Zinc Sulfate) 220 mg DAILY ORAL 07/11/19 09:00 07/21/19 08:59 Steve Rivas MD Jul 10, 2019 15:34
--- NOTE | 2019-07-10 15:43 | Consultation ---
History of Present Illness General Date patient seen: Jul 10, 2019 Chief Complaint: Altered Level of Consciousness Referring physician: PCP Reason for Consultation: HIV , sepsis Present Illness HPI HISTORY OF PRESENT ILLNESS: The patient is a 63-year-old poor historian male, who was admitted to this medical center with chief of weakness and ALOC pain. The patient was diagnosed recenltu with HIV/AIDS, now has leukocytosis and Infectious consultation has been requested for further evaluation of the patient and antibiotic management. PAST MEDICAL HISTORY: 1. COPD. 2. Hypertension. 3. BPH. 4. History of cocaine abuse in the past. 5. HIV MEDICATIONS: IV cefepime and Vanco ALLERGIES: No known drug allergies. SOCIAL HISTORY: The patient is a resident of [facility]. REVIEW OF SYSTEMS: limited Allergies: Coded Allergies: No Known Allergies (Unverified , 03/02/19) Medication History Scheduled Amino Acids/Protein Hydrolys (Pro-Stat Liquid), 30 ML ORAL TWICE A DAY, ( Reported) Ascorbic Acid* (Vitamin C*), 250 MG ORAL BID, (Reported) Docusate Sodium* (Docusate Sodium*), 100 MG ORAL TWICE A DAY, (Reported) Enoxaparin* (Lovenox*), 40 MG SUBQ DAILY, (Reported) Famotidine* (Pepcid 20mg tablet*), 20 MG ORAL TWICE A DAY, (Reported) Loratadine (Claritin), 10 MG ORAL DAILY, (Reported) Losartan Potassium (Losartan Potassium), 100 MG ORAL DAILY, (Reported) Megestrol Acetate (Megestrol Acetate), 400 MG PO DAILY, (Reported) Multivitamin with Minerals (Multivitamins with Minerals), 1 TAB ORAL DAILY, ( Reported) Pregabalin (Pregabalin), 50 MG PO BID, (Reported) Tamsulosin HCl (Flomax), 0.4 MG ORAL BID, (Reported) Zinc Sulfate (Zinc Sulfate*), 220 MG ORAL DAILY, (Reported) Scheduled PRN Acetaminophen* (Acetaminophen 325MG Tablet*), 650 MG ORAL Q4HR PRN for PAIN SCALE 1 - 4, (Reported) Bisacodyl* (Dulcolax*), 5 MG ORAL DAILY PRN for Constipation, (Reported) Hydrocodone Bit/Acetaminophen 5-325* (Graff 5-325 Tablet*), 1 TAB ORAL Q4H PRN for PAIN SCALE 5 - 10, (Reported) Magnesium Hydroxide* (Milk Of Magnesia*), 30 ML ORAL DAILY PRN for Constipation, (Reported) Na Phos,M-B/Na Phos,Di-Ba* (Fleet Enema*), 133 ML RECTAL DAILY PRN for Constipation, (Reported) Discontinued Medications Hydralazine Hcl* (Hydralazine Hcl*), 50 MG ORAL EVERY 8 HOURS, (Reported) Discontinued Reason: Therapy completed Ipratropium/Albuterol Sulfate (DuoNeb 0.5-3(2.5)mg/3ml), 3 ML HHN, (Reported) Discontinued Reason: Therapy completed Loperamide Hcl/Simethicone (Imodium Multi-Symptom Rel Cplt), 1 EACH PO Q4HR PRN for Diarrhea, (Reported) Discontinued Reason: Therapy completed Losartan Potassium* (Cozaar*), 100 MG ORAL DAILY, (Reported) Discontinued Reason: Prescription changed Multivitamin (Multi-Vitamin Daily), 1 EACH PO, (Reported) Discontinued Reason: Prescription changed Ondansetron* (Zofran*), 4 MG IV Q8H PRN for Nausea & Vomiting, (Reported) Discontinued Reason: Therapy completed Pregabalin* (Lyrica*), 50 MG ORAL THREE TIMES A DAY, (Reported) Discontinued Reason: Prescription changed Patient History Healthcare decision maker N Resuscitation status Full Code Advanced Directive on File Physical Exam Lines, tubes and drains: PICC HEENT: anicteric Neck: abnormal alignment Respiratory/Chest: no accessory muscle use Cardiovascular/Chest: regularly irregular Genitourinary/Rectal: normal rectal exam Extremities: normal inspection Neurologic: oriented x 3 Last 24 Hour Vital Signs Date Time Temp Pulse Resp B/P (MAP) Pulse Ox O2 Delivery O2 Flow Rate FiO2 07/10/19 13:26 110/68 07/10/19 12:00 98.6 100 20 110/68 (82) 98 07/10/19 09:00 Room Air 07/10/19 08:00 97.8 80 18 140/88 (105) 97 07/10/19 03:48 98.1 106 21 102/61 (75) 98 07/09/19 23:58 96.3 94 20 127/81 (96) 100 07/09/19 21:00 Room Air 07/09/19 20:00 97.4 91 20 103/68 (80) 97 3/23/20 16:00 98.8 74 19 129/78 (95) 97 Intake and Output 07/09/19 07/10/19 19:00 07:00 Intake Total 970 ml 1375 ml Output Total 800 ml 800 ml Balance 170 ml 575 ml Intake IV Total 970 ml 1375 ml Output Urine Total 800 ml 800 ml # Bowel Movements 1 Laboratory Tests Test 07/09/19 17:00 07/10/19 05:10 07/10/19 08:35 Urine Random Sodium 21 mmol/L (20-110) White Blood Count 14.8 K/UL (4.8-10.8) H Red Blood Count 2.62 M/UL (4.70-6.10) L Hemoglobin 7.1 G/DL (14.2-18.0) L Hematocrit 21.2 % (42.0-52.0) L Mean Corpuscular Volume 81 FL (80-99) Mean Corpuscular Hemoglobin 27.2 PG (27.0-31.0) Mean Corpuscular Hemoglobin Concent 33.8 G/DL (32.0-36.0) Red Cell Distribution Width 17.3 % (11.6-14.8) H Platelet Count 124 K/UL (150-450) L Mean Platelet Volume 7.4 FL (6.5-10.1) Neutrophils (%) (Auto) % (45.0-75.0) Lymphocytes (%) (Auto) % (20.0-45.0) Monocytes (%) (Auto) % (1.0-10.0) Eosinophils (%) (Auto) % (0.0-3.0) Basophils (%) (Auto) % (0.0-2.0) Differential Total Cells Counted 100 Neutrophils % (Manual) 74 % (45-75) Lymphocytes % (Manual) 14 % (20-45) L Monocytes % (Manual) 5 % (1-10) Eosinophils % (Manual) 6 % (0-3) H Basophils % (Manual) 1 % (0-2) Band Neutrophils 0 % (0-8) Platelet Estimate Decreased L Platelet Morphology Normal Hypochromasia 3+ Anisocytosis 1+ Spherocytes 2+ Sodium Level 146 MMOL/L (136-145) H Potassium Level 3.7 MMOL/L (3.5-5.1) Chloride Level 119 MMOL/L (98-107) H Carbon Dioxide Level 11 MMOL/L (21-32) L Anion Gap 16 mmol/L (5-15) H Blood Urea Nitrogen 36 mg/dL (7-18) H Creatinine 2.4 MG/DL (0.55-1.30) H Estimat Glomerular Filtration Rate 33.1 mL/min (>60) Glucose Level 86 MG/DL (74-106) Hemoglobin A1c 5.4 % (4.3-6.0) Lactic Acid Level 1.10 mmol/L (0.4-2.0) Uric Acid 11.6 MG/DL (2.6-7.2) H Calcium Level 8.3 MG/DL (8.5-10.1) L Phosphorus Level 4.5 MG/DL (2.5-4.9) Magnesium Level 1.4 MG/DL (1.8-2.4) L Iron Level 37 ug/dL (50-175) L Total Iron Binding Capacity 78 ug/dL (250-450) L Percent Iron Saturation 47 % (15-50) Unsaturated Iron Binding 41 ug/dL (112-346) L Ferritin 545 NG/ML (8-388) H Total Bilirubin 0.2 MG/DL (0.2-1.0) Gamma Glutamyl Transpeptidase 30 U/L (5-85) Aspartate Amino Transf (AST/SGOT) 27 U/L (15-37) Alanine Aminotransferase (ALT/SGPT) 15 U/L (12-78) Alkaline Phosphatase 78 U/L (46-116) Total Creatine Kinase 93 U/L (26-308) Troponin I 0.470 ng/mL (0.000-0.056) C-Reactive Protein, Quantitative 11.7 mg/dL (0.00-0.90) H Pro-B-Type Natriuretic Peptide 1927 pg/mL (0-125) H Total Protein 5.7 G/DL (6.4-8.2) L Albumin 1.6 G/DL (3.4-5.0) L Globulin 4.1 g/dL Albumin/Globulin Ratio 0.4 (1.0-2.7) L Triglycerides Level 75 MG/DL (30-150) Cholesterol Level 67 MG/DL (< 200) LDL Cholesterol 35 mg/dL (<100) HDL Cholesterol 15 MG/DL (40-60) L Cholesterol/HDL Ratio 4.5 (3.3-4.4) H Vitamin B12 Level 934 PG/ML (193-986) Folate 3.9 NG/ML (8.6-58.9) L Cortisol AM Sample Pending Random Vancomycin Level 18.6 ug/mL Ammonia 22 umol/L (11-32) Height (Feet): 6 Height (Inches): 0.00 Weight (Pounds): 160 Medications Current Medications Medications (Trade) Dose Ordered Sig/Deborah Route PRN Reason Start Time Stop Time Status Last Admin Dose Admin Acetaminophen (Tylenol) 650 mg Q4H PRN ORAL fever 07/08/19 19:45 08/07/19 19:44 Albuterol/ Ipratropium (Albuterol/ Ipratropium) 3 ml Q4H PRN HHN Shortness of Breath 07/08/19 19:45 07/13/19 19:44 Ascorbic Acid (Vitamin C) 500 mg TWICE A DAY ORAL 07/10/19 18:00 08/09/19 17:59 Cefepime HCl 2 gm/ Dextrose 110 ml @ 220 mls/hr Q24H IV 07/09/19 18:00 07/16/19 17:59 07/09/19 17:48 Dextrose (Dextrose 50%) 25 ml Q30M PRN IV Hypoglycemia 07/08/19 19:45 10/06/19 19:44 Dextrose (Dextrose 50%) 50 ml Q30M PRN IV Hypoglycemia 07/08/19 19:45 10/06/19 19:44 Dextrose/Sodium Chloride 1,000 ml @ 125 mls/hr Q8H IV 07/08/19 19:45 08/07/19 19:44 07/10/19 14:33 Folic Acid (Folate) 5 mg DAILY ORAL 07/10/19 09:00 08/09/19 08:59 Gadobutrol (Gadavist) 7.5 mmol NOW PRN IV Radiology Procedure 07/10/19 15:15 07/14/19 15:15 Heparin Sodium (Porcine) (Heparin 5000 units/ml) 5,000 units EVERY 12 HOURS SUBQ 07/08/19 21:00 08/22/19 20:59 07/08/19 21:50 Hydralazine HCl (Apresoline) 25 mg Q4HR PRN ORAL BP over 160 systolic 07/09/19 14:45 10/07/19 14:44 Magnesium Sulfate 100 ml @ 100 mls/hr Q1H IVPB 07/10/19 13:00 07/10/19 16:59 07/10/19 15:23 Multivitamins (Multivitamins) 1 tab DAILY ORAL 07/11/19 09:00 08/10/19 08:59 Nitroglycerin (Ntg) 0.4 mg Q5M PRN SL Prn Chest Pain 07/08/19 19:45 08/07/19 19:44 Nitroglycerin (Ntg) 1 patch Q24H TDERMAL 07/10/19 13:00 08/09/19 12:59 07/10/19 13:26 Ondansetron HCl (Zofran) 4 mg Q6H PRN IVP Nausea & Vomiting 07/08/19 19:45 08/07/19 19:44 Pantoprazole (Protonix) 40 mg EVERY 12 HOURS ORAL 07/09/19 21:00 08/08/19 20:59 Polyethylene Glycol (Miralax) 17 gm DAILYPRN PRN ORAL Constipation 07/08/19 19:45 08/07/19 19:44 Pregabalin (Lyrica) 50 mg THREE TIMES A DAY ORAL 07/09/19 09:00 08/08/19 08:59 Sodium Citrate (Bicitra) 30 ml EVERY 6 HOURS ORAL 07/09/19 14:45 08/08/19 14:44 Tamsulosin HCl (Flomax) 0.4 mg BID ORAL 07/09/19 09:00 08/08/19 08:59 Temazepam (Restoril) 15 mg HSPRN PRN ORAL Insomnia 07/08/19 19:45 07/15/19 19:44 Vancomycin HCl (Vanco rx to dose) 1 ea DAILY PRN MISC Per rx protocol 07/08/19 21:15 08/07/19 21:14 Zinc Sulfate (Zinc Sulfate) 220 mg DAILY ORAL 07/11/19 09:00 07/21/19 08:59 Steve Rivas MD Jul 10, 2019 15:43
[2019-07-10 16:00] VITALS: BP 118/70
[2019-07-10] MEDS: Ascorbic Acid 500mg tab ORAL SCH (18:00)
[2019-07-10] MEDS: Cefepime HCl 2 GM in D5W 110 ML IV SCH (18:14)
--- NOTE | 2019-07-10 19:57 | Pulmonology Progress Note ---
Assessment/Plan Problems: (1) Sepsis (2) Altered level of consciousness (3) COPD (chronic obstructive pulmonary disease) (4) Pancreatitis (5) Decubitus skin ulcer (6) Hypertension (7) BPH (benign prostatic hyperplasia) (8) HIV disease Assessment/Plan Assessment/Plan: wound care iv abx adams culture f/u amylase lipase swallow study \ IV fluids Renal, GI and ID evaluation appreciated dvt prophylaxis. Subjective ROS Limited/Unobtainable: No Constitutional: Reports: no symptoms HEENT: Repors: no symptoms Respiratory: Reports: no symptoms Allergies: Coded Allergies: No Known Allergies (Unverified , 03/02/19) Objective Last 24 Hour Vital Signs Date Time Temp Pulse Resp B/P (MAP) Pulse Ox O2 Delivery O2 Flow Rate FiO2 07/10/19 16:00 98.5 97 19 118/70 (86) 98 07/10/19 13:26 110/68 07/10/19 12:00 98.6 100 20 110/68 (82) 98 07/10/19 09:00 Room Air 07/10/19 08:00 97.8 80 18 140/88 (105) 97 07/10/19 03:48 98.1 106 21 102/61 (75) 98 07/09/19 23:58 96.3 94 20 127/81 (96) 100 07/09/19 21:00 Room Air 07/09/19 20:00 97.4 91 20 103/68 (80) 97 Intake and Output 07/09/19 07/10/19 19:00 07:00 Intake Total 970 ml 1375 ml Output Total 800 ml 800 ml Balance 170 ml 575 ml IV Total 970 ml 1375 ml Output Urine Total 800 ml 800 ml # Bowel Movements 1 General Appearance: cachetic HEENT: normocephalic, atraumatic Respiratory/Chest: chest wall non-tender, lungs clear Cardiovascular: normal peripheral pulses, normal rate Abdomen: normal bowel sounds, soft, non tender Genitourinary: normal external genitalia 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 Microbiology Date/Time Source Procedure Growth Status 07/08/19 17:36 Blood Blood Culture - Preliminary NO GROWTH AFTER 24 HOURS Resulted 07/08/19 17:15 Blood Blood Culture - Preliminary NO GROWTH AFTER 24 HOURS Resulted Laboratory Tests 07/10/19 05:10: White Blood Count 14.8H, Red Blood Count 2.62L, Hemoglobin 7.1L, Hematocrit 21.2L, Mean Corpuscular Volume 81, Mean Corpuscular Hemoglobin 27.2, Mean Corpuscular Hemoglobin Concent 33.8, Red Cell Distribution Width 17.3H, Platelet Count 124L, Mean Platelet Volume 7.4, Neutrophils (%) (Auto) , Lymphocytes (%) (Auto) , Monocytes (%) (Auto) , Eosinophils (%) (Auto) , Basophils (%) (Auto) , Differential Total Cells Counted 100, Neutrophils % ( Manual) 74, Lymphocytes % (Manual) 14L, Monocytes % (Manual) 5, Eosinophils % ( Manual) 6H, Basophils % (Manual) 1, Band Neutrophils 0, Platelet Estimate DecreasedL, Platelet Morphology Normal, Hypochromasia 3+, Anisocytosis 1+, Spherocytes 2+, Sodium Level 146H, Potassium Level 3.7, Chloride Level 119H, Carbon Dioxide Level 11L, Anion Gap 16H, Blood Urea Nitrogen 36H, Creatinine 2.4H, Estimat Glomerular Filtration Rate 33.1, Glucose Level 86, Hemoglobin A1c 5.4, Lactic Acid Level 1.10, Uric Acid 11.6H, Calcium Level 8.3L, Phosphorus Level 4.5, Magnesium Level 1.4L, Iron Level 37L, Total Iron Binding Capacity 78L , Percent Iron Saturation 47, Unsaturated Iron Binding 41L, Ferritin 545H, Total Bilirubin 0.2, Gamma Glutamyl Transpeptidase 30, Aspartate Amino Transf ( AST/SGOT) 27, Alanine Aminotransferase (ALT/SGPT) 15, Alkaline Phosphatase 78, Total Creatine Kinase 93, Troponin I 0.470H, C-Reactive Protein, Quantitative 11.7H, Pro-B-Type Natriuretic Peptide 1927H, Total Protein 5.7L, Albumin 1.6L, Globulin 4.1, Albumin/Globulin Ratio 0.4L, Triglycerides Level 75, Cholesterol Level 67, LDL Cholesterol 35, HDL Cholesterol 15L, Cholesterol/HDL Ratio 4.5H, Vitamin B12 Level 934, Folate 3.9L, Cortisol AM Sample [Pending], Random Vancomycin Level 18.6 07/10/19 08:35: Ammonia 22 Current Medications Medications (Trade) Dose Ordered Sig/Deborah Route PRN Reason Start Time Stop Time Status Last Admin Dose Admin Acetaminophen (Tylenol) 650 mg Q4H PRN ORAL fever 07/08/19 19:45 4/21/20 19:44 Albuterol/ Ipratropium (Albuterol/ Ipratropium) 3 ml Q4H PRN HHN Shortness of Breath 07/08/19 19:45 07/13/19 19:44 Ascorbic Acid (Vitamin C) 500 mg TWICE A DAY ORAL 07/10/19 18:00 08/09/19 17:59 Cefepime HCl 2 gm/ Dextrose 110 ml @ 220 mls/hr Q24H IV 07/09/19 18:00 07/16/19 17:59 07/10/19 18:14 Dextrose (Dextrose 50%) 25 ml Q30M PRN IV Hypoglycemia 07/08/19 19:45 10/06/19 19:44 Dextrose (Dextrose 50%) 50 ml Q30M PRN IV Hypoglycemia 07/08/19 19:45 10/06/19 19:44 Dextrose/Sodium Chloride 1,000 ml @ 125 mls/hr Q8H IV 07/08/19 19:45 08/07/19 19:44 07/10/19 14:33 Folic Acid (Folate) 5 mg DAILY ORAL 07/10/19 09:00 08/09/19 08:59 Gadobutrol (Gadavist) 7.5 mmol NOW PRN IV Radiology Procedure 07/10/19 15:15 07/14/19 15:15 Heparin Sodium (Porcine) (Heparin 5000 units/ml) 5,000 units EVERY 12 HOURS SUBQ 07/08/19 21:00 08/22/19 20:59 07/08/19 21:50 Hydralazine HCl (Apresoline) 25 mg Q4HR PRN ORAL BP over 160 systolic 07/09/19 14:45 10/07/19 14:44 Multivitamins (Multivitamins) 1 tab DAILY ORAL 07/11/19 09:00 08/10/19 08:59 Nitroglycerin (Ntg) 0.4 mg Q5M PRN SL Prn Chest Pain 07/08/19 19:45 08/07/19 19:44 Nitroglycerin (Ntg) 1 patch Q24H TDERMAL 07/10/19 13:00 08/09/19 12:59 07/10/19 13:26 Ondansetron HCl (Zofran) 4 mg Q6H PRN IVP Nausea & Vomiting 07/08/19 19:45 08/07/19 19:44 Pantoprazole (Protonix) 40 mg EVERY 12 HOURS ORAL 07/09/19 21:00 08/08/19 20:59 Polyethylene Glycol (Miralax) 17 gm DAILYPRN PRN ORAL Constipation 07/08/19 19:45 08/07/19 19:44 Pregabalin (Lyrica) 50 mg THREE TIMES A DAY ORAL 07/09/19 09:00 08/08/19 08:59 Sodium Citrate (Bicitra) 30 ml EVERY 6 HOURS ORAL 07/09/19 14:45 08/08/19 14:44 Tamsulosin HCl (Flomax) 0.4 mg BID ORAL 07/09/19 09:00 08/08/19 08:59 Temazepam (Restoril) 15 mg HSPRN PRN ORAL Insomnia 07/08/19 19:45 07/15/19 19:44 Vancomycin HCl (Vanco rx to dose) 1 ea DAILY PRN MISC Per rx protocol 07/08/19 21:15 08/07/19 21:14 Zinc Sulfate (Zinc Sulfate) 220 mg DAILY ORAL 07/11/19 09:00 07/21/19 08:59 Rico Chavarria MD Jul 10, 2019 19:57
[2019-07-10 20:00] VITALS: BP 117/61
[2019-07-10 23:48] VITALS: BP 150/95
[2019-07-11] MEDS: Sodium Citrate 30ml ORAL SCH ×5 (00:06→17:42)
[2019-07-11] MEDS: D5 1/2NS 1,000 ML IV SCH ×3 (01:55→21:39)
[2019-07-11 05:09] VITALS: BP 130/75
[2019-07-11 08:00] VITALS: BP 108/68
[2019-07-11] MEDS: Heparin 5000 units/ml inj SUBQ SCH ×2 (09:00→21:40)
[2019-07-11] MEDS: Lyrica 50mg cap ORAL SCH (09:00)
[2019-07-11] MEDS: Ascorbic Acid 500mg tab ORAL SCH ×2 (09:24→17:18)
[2019-07-11] MEDS: Tamsulosin 0.4mg cap ORAL SCH ×2 (09:24→17:18)
[2019-07-11] MEDS: Zinc Sulfate 220mg cap ORAL SCH (09:24)
[2019-07-11] MEDS ORDERED: Morphine Sulfate 2mg/ml Inj(IV/IM USE ONLY) IVP PRN (10:30)
--- NOTE | 2019-07-11 11:59 | Nephrology Progress Note ---
Assessment/Plan Problem List: (1) Pancreatitis (2) Hypothermia (3) Hypertension (4) COPD (chronic obstructive pulmonary disease) (5) BPH (benign prostatic hyperplasia) (6) HIV disease (7) Anemia Assessment Acute renal failure, partly dehydration Anemia Hypoalbuminemia High lipase level of 1999, Pancreatitis UTI Hypothermia Toxic metabolic encephalopathy Sepsis Decubitus skin ulcer Hypothyroid Plan Today's labs still pending patient has the tendency to refuse blood work Suggest transfusion will defer to primary MD magnesium sulfate IV given yesterday 24-hour urine measurement for total protein in process results pending Suggested blood transfusion for low hemoglobin Slow hydrate 2D echocardiogram results suggestive of ejection fraction of 50% Kidney ultrasound unremarkable Urine studies Anemia work-up noted Monitor renal parameters Antibiotics Avoid nephrotoxic's Per orders Subjective ROS Limited/Unobtainable: No Constitutional: Reports: malaise, weakness Objective Objective Last 24 Hour Vital Signs Date Time Temp Pulse Resp B/P (MAP) Pulse Ox O2 Delivery O2 Flow Rate FiO2 07/11/19 08:00 98.0 90 19 108/68 (81) 94 07/11/19 05:09 97.3 96 16 130/75 (93) 96 07/10/19 23:48 97.8 95 17 150/95 (113) 96 07/10/19 21:00 Room Air 07/10/19 20:00 97.4 90 16 117/61 (79) 98 07/10/19 16:00 98.5 97 19 118/70 (86) 98 07/10/19 13:26 110/68 07/10/19 12:00 98.6 100 20 110/68 (82) 98 Intake and Output 07/10/19 07/11/19 19:00 07:00 Intake Total 1450 ml 1845 ml Output Total 300 ml 420 ml Balance 1150 ml 1425 ml Intake Oral 100 ml 360 ml IV Total 1350 ml 1485 ml Output Urine Total 300 ml 420 ml # Bowel Movements 1 Height (Feet): 6 Height (Inches): 0.00 Weight (Pounds): 167 General Appearance: no apparent distress, lethargic Respiratory/Chest: decreased breath sounds Abdomen: distended Zander Razo MD Jul 11, 2019 11:59
[2019-07-11 12:00] VITALS: BP 102/57
[2019-07-11] MEDS: Nitroglycerin Patch 0.4mg TDERMAL SCH (13:34)
[2019-07-11] MEDS ORDERED: HYDROcodone/Acetamin 5/325 tab ORAL PRN (15:45)
--- NOTE | 2019-07-11 15:58 | Pulmonology Progress Note ---
Assessment/Plan Problems: (1) Sepsis (2) Altered level of consciousness (3) COPD (chronic obstructive pulmonary disease) (4) Pancreatitis (5) Decubitus skin ulcer (6) Hypertension (7) BPH (benign prostatic hyperplasia) (8) HIV disease Assessment/Plan Assessment/Plan: mental status improved wound care iv abx adams culture f/u amylase lipase swallow study \ IV fluids Renal, and ID evaluation appreciated dvt prophylaxis. Subjective ROS Limited/Unobtainable: No Allergies: Coded Allergies: No Known Allergies (Unverified , 03/02/19) Objective Last 24 Hour Vital Signs Date Time Temp Pulse Resp B/P (MAP) Pulse Ox O2 Delivery O2 Flow Rate FiO2 07/11/19 13:34 102/57 07/11/19 12:00 98.4 85 18 102/57 (72) 99 07/11/19 09:00 Room Air 07/11/19 08:00 98.0 90 19 108/68 (81) 94 07/11/19 05:09 97.3 96 16 130/75 (93) 96 07/10/19 23:48 97.8 95 17 150/95 (113) 96 07/10/19 21:00 Room Air 07/10/19 20:00 97.4 90 16 117/61 (79) 98 07/10/19 16:00 98.5 97 19 118/70 (86) 98 Intake and Output 07/10/19 07/11/19 19:00 07:00 Intake Total 1450 ml 1845 ml Output Total 300 ml 420 ml Balance 1150 ml 1425 ml Intake Oral 100 ml 360 ml IV Total 1350 ml 1485 ml Output Urine Total 300 ml 420 ml # Bowel Movements 1 General Appearance: cachetic HEENT: normocephalic, atraumatic Respiratory/Chest: chest wall non-tender, lungs clear Cardiovascular: normal peripheral pulses, regular rhythm Abdomen: normal bowel sounds 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 Complete 07/10/19 18:25 Indwelling Cath Urine Culture - Preliminary Resulted 07/08/19 17:30 Rectum VRE Culture - Final Enterococcus Faecium - Vre Complete Current Medications Medications (Trade) Dose Ordered Sig/Deborah Route PRN Reason Start Time Stop Time Status Last Admin Dose Admin Acetaminophen (Tylenol) 650 mg Q4H PRN ORAL fever 07/08/19 19:45 08/07/19 19:44 Albuterol/ Ipratropium (Albuterol/ Ipratropium) 3 ml Q4H PRN HHN Shortness of Breath 07/08/19 19:45 07/13/19 19:44 Ascorbic Acid (Vitamin C) 500 mg TWICE A DAY ORAL 07/10/19 18:00 08/09/19 17:59 07/11/19 09:24 Cefepime HCl 2 gm/ Dextrose 110 ml @ 220 mls/hr Q24H IV 07/09/19 18:00 07/16/19 17:59 07/10/19 18:14 Dextrose (Dextrose 50%) 25 ml Q30M PRN IV Hypoglycemia 07/08/19 19:45 10/06/19 19:44 Dextrose (Dextrose 50%) 50 ml Q30M PRN IV Hypoglycemia 07/08/19 19:45 10/06/19 19:44 Dextrose/Sodium Chloride 1,000 ml @ 125 mls/hr Q8H IV 07/08/19 19:45 08/07/19 19:44 07/11/19 11:32 Folic Acid (Folate) 5 mg DAILY ORAL 07/10/19 09:00 08/09/19 08:59 07/11/19 09:24 Gadobutrol (Gadavist) 7.5 mmol NOW PRN IV Radiology Procedure 07/10/19 15:15 07/14/19 15:15 Heparin Sodium (Porcine) (Heparin 5000 units/ml) 5,000 units EVERY 12 HOURS SUBQ 07/08/19 21:00 08/22/19 20:59 07/08/19 21:50 Hydralazine HCl (Apresoline) 25 mg Q4HR PRN ORAL BP over 160 systolic 07/09/19 14:45 10/07/19 14:44 Morphine Sulfate (Morphine Sulfate) 2 mg Q4H PRN IVP For Pain 07/11/19 10:30 07/18/19 10:29 07/11/19 11:41 Multivitamins (Multivitamins) 1 tab DAILY ORAL 07/11/19 09:00 08/10/19 08:59 07/11/19 09:24 Nitroglycerin (Ntg) 0.4 mg Q5M PRN SL Prn Chest Pain 07/08/19 19:45 08/07/19 19:44 Nitroglycerin (Ntg) 1 patch Q24H TDERMAL 07/10/19 13:00 08/09/19 12:59 07/11/19 13:34 Ondansetron HCl (Zofran) 4 mg Q6H PRN IVP Nausea & Vomiting 07/08/19 19:45 08/07/19 19:44 Pantoprazole (Protonix) 40 mg EVERY 12 HOURS ORAL 07/09/19 21:00 08/08/19 20:59 07/11/19 09:24 Polyethylene Glycol (Miralax) 17 gm DAILYPRN PRN ORAL Constipation 07/08/19 19:45 08/07/19 19:44 Sodium Citrate (Bicitra) 30 ml EVERY 6 HOURS ORAL 07/09/19 14:45 08/08/19 14:44 07/11/19 11:42 Tamsulosin HCl (Flomax) 0.4 mg BID ORAL 07/09/19 09:00 08/08/19 08:59 07/11/19 09:24 Temazepam (Restoril) 15 mg HSPRN PRN ORAL Insomnia 07/08/19 19:45 07/15/19 19:44 Vancomycin HCl (Vanco rx to dose) 1 ea DAILY PRN MISC Per rx protocol 07/08/19 21:15 08/07/19 21:14 Zinc Sulfate (Zinc Sulfate) 220 mg DAILY ORAL 07/11/19 09:00 07/21/19 08:59 07/11/19 09:24 Rico Chavarria MD Jul 11, 2019 15:58
[2019-07-11 16:00] VITALS: BP 176/96
--- NOTE | 2019-07-11 16:15 | Consultation ---
DATE OF CONSULTATION: 07/11/2019 GASTROENTEROLOGY CONSULTATION CONSULTING PHYSICIAN: Mansoor Interiano M.D. REFERRING PHYSICIAN: Rico Chavarria M.D. CHIEF COMPLAINT: Elevated amylase and lipase. HISTORY OF PRESENT ILLNESS: Most of history is per chart. The patient is a poor historian. The patient is known to me from last admission. He has a diagnosis of HIV in last admission. [facility] living in a [facility] and they found him to be altered and brought him to the hospital. The patient denies any nausea or vomiting. Denies any dysphagia. Denies any odynophagia. Denies any melena. In last admission, he had evidence of some colitis based on the CT. Stool studies came back negative for C. diff and other cultures. The patient refused colonoscopy in last admission. Now, he is found to have abnormal amylase and lipase, and GI consult requested for further evaluation. PAST MEDICAL HISTORY: 1. History of HIV. 2. History of possible colitis based on the CT scan. 3. Anemia. 4. Sepsis. 5. UTIs with MRSA. 6. Hypertension. 7. COPD. 8. BPH. 9. Sacral decubital ulcerations, stage III. 10. Malnutrition. ALLERGIES: No known allergies. MEDICATIONS: Please see medication reconciliation list. FAMILY HISTORY: Noncontributory. SOCIAL HISTORY: He lives in [facility]. No history of tobacco, alcohol, or drug abuse. PHYSICAL EXAMINATION: VITAL SIGNS: Temperature is 98, pulse 90, respirations 19, blood pressure is 108/68. HEENT: Normocephalic, atraumatic. Mild pale conjunctivae. NECK: Supple. No evidence of obvious lymphadenopathy. CARDIOVASCULAR: Regular rate and rhythm. Plus S1, S2. LUNGS: Decreased breath sounds bilaterally in the supine exam. ABDOMEN: Soft, nontender. No rebound. No guarding. No peritoneal sign. EXTREMITIES: The patient had evidence of trace edema. The left leg is covered by the bandage from possibly wound. LABORATORY DATA: White count is 14,000, hemoglobin 7.1, hematocrit 21, platelet count is 124,000. Chem-7, sodium is 146, potassium 3.7, creatinine is 2.4, albumin is low at 1.6. Amylase is 564, lipase more than 2000. Lipid panel, no hypertriglyceridemia, triglyceride is 75. ASSESSMENT AND PLAN: This is a 63-year-old male with numerous medical problems including HIV, malnutrition, hypoalbuminemia, elevated WBC, low platelet count, renal insufficiency, pancreatitis based on elevated amylase and lipase, dilated intrahepatic duct based on abdominal ultrasound. PLAN: In terms of anemia, there is no evidence of any active GI bleeding, but at one point, the patient will need to have an endoscopy and colonoscopy for workup. At this time, the patient is very debilitated and I do not think he is going to be able to tolerate the procedure. We are going to monitor hemoglobin and hematocrit, transfuse as needed to keep hemoglobin above 7. We are going to order stool for OB. In terms of pancreatitis, the patient is asymptomatic at this time, does not have abdominal pain. We are going to repeat amylase and lipase for tomorrow and if it is still elevated, we will consider doing CT for evaluation. In terms of nutrition, the patient is severely malnourished. We will recommend a dietitian consult. In terms of HIV, further recommend ID consultation. I want to thank Dr. Chavarria for this kind referral. Mansoor Interiano M.D. DR: ANSELMO JOB#: [id number] CC: Rico Chavarria M.D.; Fax#: [phone]
--- NOTE | 2019-07-11 16:20 | Consultation ---
History of Present Illness General Date patient seen: Jul 11, 2019 Present Illness Allergies: Coded Allergies: No Known Allergies (Unverified , 03/02/19) Medication History Scheduled Amino Acids/Protein Hydrolys (Pro-Stat Liquid), 30 ML ORAL TWICE A DAY, ( Reported) Ascorbic Acid* (Vitamin C*), 250 MG ORAL BID, (Reported) Docusate Sodium* (Docusate Sodium*), 100 MG ORAL TWICE A DAY, (Reported) Enoxaparin* (Lovenox*), 40 MG SUBQ DAILY, (Reported) Famotidine* (Pepcid 20mg tablet*), 20 MG ORAL TWICE A DAY, (Reported) Loratadine (Claritin), 10 MG ORAL DAILY, (Reported) Losartan Potassium (Losartan Potassium), 100 MG ORAL DAILY, (Reported) Megestrol Acetate (Megestrol Acetate), 400 MG PO DAILY, (Reported) Multivitamin with Minerals (Multivitamins with Minerals), 1 TAB ORAL DAILY, ( Reported) Pregabalin (Pregabalin), 50 MG PO BID, (Reported) Tamsulosin HCl (Flomax), 0.4 MG ORAL BID, (Reported) Zinc Sulfate (Zinc Sulfate*), 220 MG ORAL DAILY, (Reported) Scheduled PRN Acetaminophen* (Acetaminophen 325MG Tablet*), 650 MG ORAL Q4HR PRN for PAIN SCALE 1 - 4, (Reported) Bisacodyl* (Dulcolax*), 5 MG ORAL DAILY PRN for Constipation, (Reported) Hydrocodone Bit/Acetaminophen 5-325* ([place] 5-325 Tablet*), 1 TAB ORAL Q4H PRN for PAIN SCALE 5 - 10, (Reported) Magnesium Hydroxide* (Milk Of Magnesia*), 30 ML ORAL DAILY PRN for Constipation, (Reported) Na Phos,M-B/Na Phos,Di-Ba* (Fleet Enema*), 133 ML RECTAL DAILY PRN for Constipation, (Reported) Discontinued Medications Hydralazine Hcl* (Hydralazine Hcl*), 50 MG ORAL EVERY 8 HOURS, (Reported) Discontinued Reason: Therapy completed Ipratropium/Albuterol Sulfate (DuoNeb 0.5-3(2.5)mg/3ml), 3 ML HHN, (Reported) Discontinued Reason: Therapy completed Loperamide Hcl/Simethicone (Imodium Multi-Symptom Rel Cplt), 1 EACH PO Q4HR PRN for Diarrhea, (Reported) Discontinued Reason: Therapy completed Losartan Potassium* (Cozaar*), 100 MG ORAL DAILY, (Reported) Discontinued Reason: Prescription changed Multivitamin (Multi-Vitamin Daily), 1 EACH PO, (Reported) Discontinued Reason: Prescription changed Ondansetron* (Zofran*), 4 MG IV Q8H PRN for Nausea & Vomiting, (Reported) Discontinued Reason: Therapy completed Pregabalin* (Lyrica*), 50 MG ORAL THREE TIMES A DAY, (Reported) Discontinued Reason: Prescription changed Patient History Healthcare decision maker N Resuscitation status Full Code Advanced Directive on File Physical Exam Last 24 Hour Vital Signs Date Time Temp Pulse Resp B/P (MAP) Pulse Ox O2 Delivery O2 Flow Rate FiO2 07/11/19 13:34 102/57 07/11/19 12:00 98.4 85 18 102/57 (72) 99 07/11/19 09:00 Room Air 07/11/19 08:00 98.0 90 19 108/68 (81) 94 07/11/19 05:09 97.3 96 16 130/75 (93) 96 07/10/19 23:48 97.8 95 17 150/95 (113) 96 07/10/19 21:00 Room Air 07/10/19 20:00 97.4 90 16 117/61 (79) 98 Intake and Output 07/10/19 07/11/19 19:00 07:00 Intake Total 1450 ml 1845 ml Output Total 300 ml 420 ml Balance 1150 ml 1425 ml Intake Oral 100 ml 360 ml IV Total 1350 ml 1485 ml Output Urine Total 300 ml 420 ml # Bowel Movements 1 Microbiology Date/Time Source Procedure Growth Status 07/10/19 18:25 Indwelling Cath Urine Culture - Preliminary Resulted Height (Feet): 6 Height (Inches): 0.00 Weight (Pounds): 167 Medications Current Medications Medications (Trade) Dose Ordered Sig/Deborah Route PRN Reason Start Time Stop Time Status Last Admin Dose Admin Acetaminophen (Tylenol) 650 mg Q4H PRN ORAL fever 07/08/19 19:45 08/07/19 19:44 Acetaminophen/ Hydrocodone Bitart ([place] 5/325) 0.5 tab Q4H PRN ORAL Severe Pain (Pain Scale 7-10) 07/11/19 15:45 07/18/19 15:44 Albuterol/ Ipratropium (Albuterol/ Ipratropium) 3 ml Q4H PRN HHN Shortness of Breath 07/08/19 19:45 07/13/19 19:44 Ascorbic Acid (Vitamin C) 500 mg TWICE A DAY ORAL 07/10/19 18:00 08/09/19 17:59 07/11/19 09:24 Cefepime HCl 2 gm/ Dextrose 110 ml @ 220 mls/hr Q24H IV 07/09/19 18:00 07/16/19 17:59 07/10/19 18:14 Dextrose (Dextrose 50%) 25 ml Q30M PRN IV Hypoglycemia 07/08/19 19:45 10/06/19 19:44 Dextrose (Dextrose 50%) 50 ml Q30M PRN IV Hypoglycemia 07/08/19 19:45 10/06/19 19:44 Dextrose/Sodium Chloride 1,000 ml @ 125 mls/hr Q8H IV 07/08/19 19:45 08/07/19 19:44 07/11/19 11:32 Folic Acid (Folate) 5 mg DAILY ORAL 07/10/19 09:00 08/09/19 08:59 07/11/19 09:24 Gadobutrol (Gadavist) 7.5 mmol NOW PRN IV Radiology Procedure 07/10/19 15:15 07/14/19 15:15 Heparin Sodium (Porcine) (Heparin 5000 units/ml) 5,000 units EVERY 12 HOURS SUBQ 07/08/19 21:00 08/22/19 20:59 07/08/19 21:50 Hydralazine HCl (Apresoline) 25 mg Q4HR PRN ORAL BP over 160 systolic 07/09/19 14:45 10/07/19 14:44 Multivitamins (Multivitamins) 1 tab DAILY ORAL 07/11/19 09:00 08/10/19 08:59 07/11/19 09:24 Nitroglycerin (Ntg) 0.4 mg Q5M PRN SL Prn Chest Pain 07/08/19 19:45 08/07/19 19:44 Nitroglycerin (Ntg) 1 patch Q24H TDERMAL 07/10/19 13:00 08/09/19 12:59 07/11/19 13:34 Ondansetron HCl (Zofran) 4 mg Q6H PRN IVP Nausea & Vomiting 07/08/19 19:45 08/07/19 19:44 Pantoprazole (Protonix) 40 mg EVERY 12 HOURS ORAL 07/09/19 21:00 08/08/19 20:59 07/11/19 09:24 Polyethylene Glycol (Miralax) 17 gm DAILYPRN PRN ORAL Constipation 07/08/19 19:45 08/07/19 19:44 Sodium Citrate (Bicitra) 30 ml EVERY 6 HOURS ORAL 07/09/19 14:45 08/08/19 14:44 07/11/19 11:42 Tamsulosin HCl (Flomax) 0.4 mg BID ORAL 07/09/19 09:00 08/08/19 08:59 07/11/19 09:24 Temazepam (Restoril) 15 mg HSPRN PRN ORAL Insomnia 07/08/19 19:45 07/15/19 19:44 Vancomycin HCl (Vanco rx to dose) 1 ea DAILY PRN MISC Per rx protocol 07/08/19 21:15 08/07/19 21:14 Zinc Sulfate (Zinc Sulfate) 220 mg DAILY ORAL 07/11/19 09:00 07/21/19 08:59 07/11/19 09:24 Assessment/Plan Assessment/Plan: (1) HIV (2) Sacral Decubitus ulcer (3) Altered mental status seen dictated Rachid Hennessy Jul 11, 2019 16:20
[2019-07-11] MEDS: Cefepime HCl 2 GM in D5W 110 ML IV SCH (17:18)
[2019-07-11] MEDS: HydrALAZINE 25mg tab ORAL PRN (17:19)
--- NOTE | 2019-07-11 17:44 | Consultation ---
DATE OF CONSULTATION: 07/11/2019 PAIN MANAGEMENT CONSULTATION CONSULTING PHYSICIAN: Daiana Mendoza M.D. REFERRING PHYSICIAN: Rico Chavarria M.D. PHYSICIAN MATERIAL FLOW ENGINEER: Vlaentín Denton CHIEF COMPLAINT: Generalized body pain. HISTORY OF PRESENT ILLNESS: This is a 63-year-old male, who is being seen on the Med/Surg floor of [facility] for initial pain management consultation. The patient has been admitted under the care of Dr. Chavarria due to altered mental status, possibly due to HIV, sepsis, and acute renal failure, being seen by Infectious Diseases as well as clinical trial manager at this time. He has been having increased pain in the sacral area due to sacral decubitus ulcer. The patient is bed-bound, not really oriented and is unable to adequately confer his medical history. Everything that is being obtained is from the chart. At this time, the patient is on morphine 2 mg IV every 4 hours as needed for severe pain. We were consulted so the patient would have adequate pain control while here in the hospital. PAST MEDICAL HISTORY: COPD, hypertension, BPH, cocaine abuse in the past, HIV. SOCIAL HISTORY: Again history of cocaine abuse. ALLERGIES: No known drug allergies. MEDICATIONS: Docusate, Lovenox, Pepcid, Claritin, losartan, megestrol, Lyrica, Flomax, zinc sulfate, [place]. REVIEW OF SYSTEMS: Unable to obtain due to the patient's mental status. PHYSICAL EXAMINATION: GENERAL: Alert and awake. VITAL SIGNS: Blood pressure 102/57, heart rate 85, oxygen saturation 99%, respiratory rate 18, temperature 98.4 degrees Fahrenheit. LUNGS: Decreased breath sounds bilaterally. HEART: S1 and S2 regular. ABDOMEN: Soft, nontender. EXTREMITIES: Upper and lower extremity range of motion is decreased due to the patient's condition. No cyanosis with edema noted as well as ulcers seen in the bilateral lower extremities. ASSESSMENT AND PLAN: This is a 63-year-old male with HIV, sacral decubitus ulcer, altered mental status. The patient will be discontinued off the morphine, started [place] 5/325 half a tablet every 4 hours as needed for severe pain. The patient was discussed with Dr. Mendoza and Dr. Mendoza concurred. We will follow the patient. Thank you very much for the courtesy of this consultation. Daiana Mendoza M.D. LENNIE Denton DR: Yanna JOB#: [id number] CC:
[2019-07-11 20:00] VITALS: BP_SYST 100; BP_SYST 141; BP_DIAS 69; BP_DIAS 76
[2019-07-12] VITALS: BP 101/69
[2019-07-12] MEDS: Sodium Citrate 30ml ORAL SCH ×4 (00:34→17:55)
[2019-07-12 04:00] VITALS: BP 136/78
[2019-07-12] MEDS: D5 1/2NS 1,000 ML IV SCH ×3 (04:00→19:45)
[2019-07-12 06:29] LABS: HEMATOCRIT 24.3 % (42.0-52.0); MEAN CORPUSCULAR VOLUME 81 FL (80-99); PLATELET COUNT 96 K/UL (150-450); RED BLOOD COUNT 3.01 M/UL (4.70-6.10); RED CELL DISTRIBUTION WIDTH 17.4 % (11.6-14.8); WHITE BLOOD COUNT 14.5 K/UL (4.8-10.8)
[2019-07-12 06:48] LABS: ALANINE AMINOTRANSFERASE 13 U/L (12-78); ALBUMIN 1.5 G/DL (3.4-5.0); ALBUMIN/GLOBULIN RATIO 0.3 (1.0-2.7); ALKALINE PHOSPHATASE 85 U/L (46-116); AMYLASE 199 U/L (25-115); ANION GAP 15 mmol/L (5-15); ASPARTATE AMINO TRANSFERASE 27 U/L (15-37); BILIRUBIN,TOTAL 0.3 MG/DL (0.2-1.0); BLOOD UREA NITROGEN 36 mg/dL (7-18); CALCIUM 8.8 MG/DL (8.5-10.1); CARBON DIOXIDE 12 MMOL/L (21-32); CHLORIDE 115 MMOL/L (98-107); CREATININE 2.3 MG/DL (0.55-1.30); POTASSIUM 3.2 MMOL/L (3.5-5.1); SODIUM 142 MMOL/L (136-145)
[2019-07-12 08:00] VITALS: BP 118/69
[2019-07-12] MEDS ORDERED: Vancomycin 1 GM in NS 275 ML IVPB ONE (09:00)
[2019-07-12] MEDS: Heparin 5000 units/ml inj SUBQ SCH (09:00)
[2019-07-12] MEDS: Zinc Sulfate 220mg cap ORAL SCH (09:21)
[2019-07-12] MEDS: Ascorbic Acid 500mg tab ORAL SCH ×2 (09:21→17:54)
[2019-07-12] MEDS: Tamsulosin 0.4mg cap ORAL SCH ×2 (09:21→17:55)
--- NOTE | 2019-07-12 09:23 | General Progress Note ---
Assessment/Plan Assessment/Plan: 1. History of HIV. 2.thrombocytopenia 3. Anemia. 4. Sepsis. 5. UTIs with MRSA. 6. Hypertension. 7. COPD. 8. BPH. 9. Sacral decubital ulcerations, stage III. 10. Malnutrition. 11. pancreatitis 12. Dilated IHD stable H&H fu stool ob fu cbc hoid GI procedures for now improving amyalse and lipase asymptomatic us reviewed repeat labs in am dc heparin given thrombocytopenia Subjective ROS Limited/Unobtainable: Yes Allergies: Coded Allergies: No Known Allergies (Unverified , 03/02/19) Objective Last 24 Hour Vital Signs Date Time Temp Pulse Resp B/P (MAP) Pulse Ox O2 Delivery O2 Flow Rate FiO2 07/12/19 08:00 97.9 70 18 118/69 (85) 99 07/12/19 04:00 98.0 72 20 136/78 (97) 94 07/12/19 00:00 98.6 91 20 101/69 (80) 98 07/11/19 21:00 Room Air 07/11/19 20:00 98.7 86 20 100/69 (79) 99 07/11/19 17:19 176/96 07/11/19 16:00 96.6 74 20 176/96 (122) 97 07/11/19 13:34 102/57 07/11/19 12:00 98.4 85 18 102/57 (72) 99 Intake and Output 07/11/19 07/12/19 19:00 07:00 Intake Total 1475 ml Output Total 250 ml Balance 1475 ml -250 ml Intake Oral 240 ml IV Total 1235 ml Output Urine Total 250 ml # Bowel Movements 1 Laboratory Tests 07/12/19 06:00: White Blood Count 14.5H, Red Blood Count 3.01L, Hemoglobin 8.0L, Hematocrit 24.3L, Mean Corpuscular Volume 81, Mean Corpuscular Hemoglobin 26.7L, Mean Corpuscular Hemoglobin Concent 33.1, Red Cell Distribution Width 17.4H, Platelet Count 96L, Mean Platelet Volume 8.4, Neutrophils (%) (Auto) , Lymphocytes (%) (Auto) , Monocytes (%) (Auto) , Eosinophils (%) (Auto) , Basophils (%) (Auto) , Differential Total Cells Counted 100, Neutrophils % ( Manual) 67, Lymphocytes % (Manual) 18L, Monocytes % (Manual) 4, Eosinophils % ( Manual) 10H, Basophils % (Manual) 1, Band Neutrophils 0, Platelet Estimate DecreasedL, Platelet Morphology Normal, Hypochromasia 2+, Anisocytosis 1+, Spherocytes 1+, Sodium Level 142, Potassium Level 3.2L, Chloride Level 115H, Carbon Dioxide Level 12L, Anion Gap 15, Blood Urea Nitrogen 36H, Creatinine 2.3H , Estimat Glomerular Filtration Rate 34.8, Glucose Level 82, Calcium Level 8.8, Total Bilirubin 0.3, Aspartate Amino Transf (AST/SGOT) 27, Alanine Aminotransferase (ALT/SGPT) 13, Alkaline Phosphatase 85, Total Protein 5.8L, Albumin 1.5L, Globulin 4.3, Albumin/Globulin Ratio 0.3L, Amylase Level 199H, Lipase 1599H, Random Vancomycin Level 17.9, Hepatitis A IgM Antibody [Pending], Hepatitis B Surface Antigen [Pending], Hepatitis B Core IgM Antibody [Pending], Hepatitis C Antibody [Pending] Height (Feet): 6 Height (Inches): 0.00 Weight (Pounds): 167 General Appearance: no apparent distress EENT: normal ENT inspection, pale conjunctivae Neck: supple Cardiovascular: normal rate Respiratory/Chest: decreased breath sounds Abdomen: normal bowel sounds, non tender, soft Extremities: non-tender Mansoor Interiano MD Jul 12, 2019 09:23
--- NOTE | 2019-07-12 09:52 | General Progress Note ---
Assessment/Plan Assessment/Plan: (1) HIV (2) Sacral Decubitus ulcer (3) Altered mental status Patient will be continued on [place] as needed. D/w Dr. Mendoza and he concurred. Subjective Date patient seen: Jul 12, 2019 Time patient seen: 09:00 - am ROS Limited/Unobtainable: Yes Allergies: Coded Allergies: No Known Allergies (Unverified , 03/02/19) Subjective Patient is in bed and showing no signs of pain Has not requested the [place]. No new complaints at this time. Objective Last 24 Hour Vital Signs Date Time Temp Pulse Resp B/P (MAP) Pulse Ox O2 Delivery O2 Flow Rate FiO2 07/12/19 08:00 97.9 70 18 118/69 (85) 99 07/12/19 04:00 98.0 72 20 136/78 (97) 94 07/12/19 00:00 98.6 91 20 101/69 (80) 98 07/11/19 21:00 Room Air 07/11/19 20:00 98.7 86 20 100/69 (79) 99 07/11/19 17:19 176/96 07/11/19 16:00 96.6 74 20 176/96 (122) 97 07/11/19 13:34 102/57 07/11/19 12:00 98.4 85 18 102/57 (72) 99 Intake and Output 07/11/19 07/12/19 19:00 07:00 Intake Total 1475 ml Output Total 250 ml Balance 1475 ml -250 ml Intake Oral 240 ml IV Total 1235 ml Output Urine Total 250 ml # Bowel Movements 1 Laboratory Tests 07/12/19 06:00: White Blood Count 14.5H, Red Blood Count 3.01L, Hemoglobin 8.0L, Hematocrit 24.3L, Mean Corpuscular Volume 81, Mean Corpuscular Hemoglobin 26.7L, Mean Corpuscular Hemoglobin Concent 33.1, Red Cell Distribution Width 17.4H, Platelet Count 96L, Mean Platelet Volume 8.4, Neutrophils (%) (Auto) , Lymphocytes (%) (Auto) , Monocytes (%) (Auto) , Eosinophils (%) (Auto) , Basophils (%) (Auto) , Differential Total Cells Counted 100, Neutrophils % ( Manual) 67, Lymphocytes % (Manual) 18L, Monocytes % (Manual) 4, Eosinophils % ( Manual) 10H, Basophils % (Manual) 1, Band Neutrophils 0, Platelet Estimate DecreasedL, Platelet Morphology Normal, Hypochromasia 2+, Anisocytosis 1+, Spherocytes 1+, Sodium Level 142, Potassium Level 3.2L, Chloride Level 115H, Carbon Dioxide Level 12L, Anion Gap 15, Blood Urea Nitrogen 36H, Creatinine 2.3H , Estimat Glomerular Filtration Rate 34.8, Glucose Level 82, Calcium Level 8.8, Total Bilirubin 0.3, Aspartate Amino Transf (AST/SGOT) 27, Alanine Aminotransferase (ALT/SGPT) 13, Alkaline Phosphatase 85, Total Protein 5.8L, Albumin 1.5L, Globulin 4.3, Albumin/Globulin Ratio 0.3L, Amylase Level 199H, Lipase 1599H, Random Vancomycin Level 17.9, Hepatitis A IgM Antibody [Pending], Hepatitis B Surface Antigen [Pending], Hepatitis B Core IgM Antibody [Pending], Hepatitis C Antibody [Pending] Height (Feet): 6 Height (Inches): 0.00 Weight (Pounds): 167 General Appearance: no apparent distress EENT: PERRL/EOMI Neck: non-tender, normal alignment Cardiovascular: normal rate, regular rhythm Respiratory/Chest: decreased breath sounds Abdomen: non tender, soft Edema: mild edema Neurologic: responsive Skin: warm/dry Rachid Hennessy Jul 12, 2019 09:52
[2019-07-12 12:00] VITALS: BP 116/67
[2019-07-12] MEDS: Nitroglycerin Patch 0.4mg TDERMAL SCH (12:33)
--- NOTE | 2019-07-12 12:36 | Infectious Diseases Prog Note ---
Assessment/Plan Assessment/Plan 63yo man admitted with abdominal pain and diarrhea. Afebrile nl WBC ? ALOC improved, pt Hx of Diarrhea/colitis- 03/02 CT: Suspected colitis with the thickening of the wall the colon. Correlate clinically. Thickening of the wall the urinary bladder. Correlate for cystitis. C diff negative x2 stool cx negative stool o/p x1 negative -Negative: E. histolytica ab, Echinococcus ab HIV Screen positive- new diagnosis in February 2019 HIV-1 Abt positive. 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 no evid of biliary - US : Mild intrahepatic biliary ductal dilatation. COPD. Hypertension. BPH. History of cocaine abuse in the past. Bedbound. PLAN: pt is refusing meds from time time making HIV Rx difficult Cont pt on IV Vanco and Cefepime # 4/5 on Bactrim DC for PCP PPx monitor CBC, temp f/u Bl and Urine Cx pt must follow up with PMD/HIV specialist once discharged MRI of brain CD4 Subjective Allergies: Coded Allergies: No Known Allergies (Unverified , 03/02/19) Subjective more awake Objective Vital Signs Last 24 Hour Vital Signs Date Time Temp Pulse Resp B/P (MAP) Pulse Ox O2 Delivery O2 Flow Rate FiO2 07/12/19 12:00 98.1 78 19 116/67 (83) 97 07/12/19 09:00 Room Air 07/12/19 08:00 97.9 70 18 118/69 (85) 99 07/12/19 04:00 98.0 72 20 136/78 (97) 94 07/12/19 00:00 98.6 91 20 101/69 (80) 98 07/11/19 21:00 Room Air 07/11/19 20:00 98.7 86 20 100/69 (79) 99 07/11/19 17:19 176/96 07/11/19 16:00 96.6 74 20 176/96 (122) 97 07/11/19 13:34 102/57 Height (Feet): 6 Height (Inches): 0.00 Weight (Pounds): 167 HEENT: anicteric Respiratory/Chest: normal breath sounds Cardiovascular: normal rate Abdomen: no organomegaly Microbiology Date/Time Source Procedure Growth Status 07/10/19 18:25 Indwelling Cath Urine Culture - Preliminary Yeast Species Resulted Laboratory Tests Test 07/12/19 06:00 White Blood Count 14.5 K/UL (4.8-10.8) H Red Blood Count 3.01 M/UL (4.70-6.10) L Hemoglobin 8.0 G/DL (14.2-18.0) L Hematocrit 24.3 % (42.0-52.0) L Mean Corpuscular Volume 81 FL (80-99) Mean Corpuscular Hemoglobin 26.7 PG (27.0-31.0) L Mean Corpuscular Hemoglobin Concent 33.1 G/DL (32.0-36.0) Red Cell Distribution Width 17.4 % (11.6-14.8) H Platelet Count 96 K/UL (150-450) L Mean Platelet Volume 8.4 FL (6.5-10.1) Neutrophils (%) (Auto) % (45.0-75.0) Lymphocytes (%) (Auto) % (20.0-45.0) Monocytes (%) (Auto) % (1.0-10.0) Eosinophils (%) (Auto) % (0.0-3.0) Basophils (%) (Auto) % (0.0-2.0) Differential Total Cells Counted 100 Neutrophils % (Manual) 67 % (45-75) Lymphocytes % (Manual) 18 % (20-45) L Monocytes % (Manual) 4 % (1-10) Eosinophils % (Manual) 10 % (0-3) H Basophils % (Manual) 1 % (0-2) Band Neutrophils 0 % (0-8) Platelet Estimate Decreased L Platelet Morphology Normal Hypochromasia 2+ Anisocytosis 1+ Spherocytes 1+ Sodium Level 142 MMOL/L (136-145) Potassium Level 3.2 MMOL/L (3.5-5.1) L Chloride Level 115 MMOL/L (98-107) H Carbon Dioxide Level 12 MMOL/L (21-32) L Anion Gap 15 mmol/L (5-15) Blood Urea Nitrogen 36 mg/dL (7-18) H Creatinine 2.3 MG/DL (0.55-1.30) H Estimat Glomerular Filtration Rate 34.8 mL/min (>60) Glucose Level 82 MG/DL (74-106) Calcium Level 8.8 MG/DL (8.5-10.1) Total Bilirubin 0.3 MG/DL (0.2-1.0) Aspartate Amino Transf (AST/SGOT) 27 U/L (15-37) Alanine Aminotransferase (ALT/SGPT) 13 U/L (12-78) Alkaline Phosphatase 85 U/L (46-116) Total Protein 5.8 G/DL (6.4-8.2) L Albumin 1.5 G/DL (3.4-5.0) L Globulin 4.3 g/dL Albumin/Globulin Ratio 0.3 (1.0-2.7) L Amylase Level 199 U/L (25-115) H Lipase 1599 U/L (73-393) H Random Vancomycin Level 17.9 ug/mL Hepatitis A IgM Antibody Pending Hepatitis B Surface Antigen Pending Hepatitis B Core IgM Antibody Pending Hepatitis C Antibody Pending Current Medications Medications (Trade) Dose Ordered Sig/Deborah Route PRN Reason Start Time Stop Time Status Last Admin Dose Admin Acetaminophen (Tylenol) 650 mg Q4H PRN ORAL fever 07/08/19 19:45 08/07/19 19:44 Acetaminophen/ Hydrocodone Bitart ([place] 5/325) 0.5 tab Q4H PRN ORAL Severe Pain (Pain Scale 7-10) 07/11/19 15:45 07/18/19 15:44 Albuterol/ Ipratropium (Albuterol/ Ipratropium) 3 ml Q4H PRN HHN Shortness of Breath 07/08/19 19:45 07/13/19 19:44 Ascorbic Acid (Vitamin C) 500 mg TWICE A DAY ORAL 07/10/19 18:00 08/09/19 17:59 07/12/19 09:21 Cefepime HCl 2 gm/ Dextrose 110 ml @ 220 mls/hr Q24H IV 07/09/19 18:00 07/16/19 17:59 07/11/19 17:18 Dextrose (Dextrose 50%) 25 ml Q30M PRN IV Hypoglycemia 07/08/19 19:45 10/06/19 19:44 Dextrose (Dextrose 50%) 50 ml Q30M PRN IV Hypoglycemia 07/08/19 19:45 10/06/19 19:44 Dextrose/Sodium Chloride 1,000 ml @ 125 mls/hr Q8H IV 07/08/19 19:45 08/07/19 19:44 07/12/19 04:00 Folic Acid (Folate) 5 mg DAILY ORAL 07/10/19 09:00 08/09/19 08:59 07/12/19 09:21 Gadobutrol (Gadavist) 7.5 mmol NOW PRN IV Radiology Procedure 07/10/19 15:15 07/14/19 15:15 Hydralazine HCl (Apresoline) 25 mg Q4HR PRN ORAL BP over 160 systolic 07/09/19 14:45 10/07/19 14:44 07/11/19 17:19 Multivitamins (Multivitamins) 1 tab DAILY ORAL 07/11/19 09:00 08/10/19 08:59 07/12/19 09:21 Nitroglycerin (Ntg) 0.4 mg Q5M PRN SL Prn Chest Pain 07/08/19 19:45 08/07/19 19:44 Nitroglycerin (Ntg) 1 patch Q24H TDERMAL 07/10/19 13:00 08/09/19 12:59 07/11/19 13:34 Ondansetron HCl (Zofran) 4 mg Q6H PRN IVP Nausea & Vomiting 07/08/19 19:45 08/07/19 19:44 Pantoprazole (Protonix) 40 mg DAILY ORAL 07/13/19 09:00 08/08/19 20:59 Polyethylene Glycol (Miralax) 17 gm DAILYPRN PRN ORAL Constipation 07/08/19 19:45 08/07/19 19:44 Potassium Chloride 100 ml @ 100 mls/hr Q1H IVPB 07/12/19 13:00 07/12/19 14:59 Sodium Citrate (Bicitra) 30 ml EVERY 6 HOURS ORAL 07/09/19 14:45 08/08/19 14:44 07/11/19 11:42 Tamsulosin HCl (Flomax) 0.4 mg BID ORAL 07/09/19 09:00 08/08/19 08:59 07/12/19 09:21 Temazepam (Restoril) 15 mg HSPRN PRN ORAL Insomnia 07/08/19 19:45 07/15/19 19:44 Vancomycin HCl (Vanco rx to dose) 1 ea DAILY PRN MISC Per rx protocol 07/08/19 21:15 08/07/19 21:14 Vancomycin HCl 1 gm/Sodium Chloride 275 ml @ 183.708 mls/hr ONCE ONCE IVPB 07/12/19 14:00 07/12/19 15:29 Zinc Sulfate (Zinc Sulfate) 220 mg DAILY ORAL 07/11/19 09:00 07/21/19 08:59 07/12/19 09:21 Steve Rivas MD Jul 12, 2019 12:36
[2019-07-12] MEDS ORDERED: D5 1/2NS 1000ml IV ONE (13:10)
--- NOTE | 2019-07-12 13:52 | Nephrology Progress Note ---
Assessment/Plan Problem List: (1) Pancreatitis (2) Hypothermia (3) Hypertension (4) COPD (chronic obstructive pulmonary disease) (5) BPH (benign prostatic hyperplasia) (6) HIV disease (7) Anemia Assessment Acute renal failure, partly dehydration Anemia Hypoalbuminemia High lipase level of 1999, Pancreatitis UTI Hypothermia Toxic metabolic encephalopathy Sepsis Decubitus skin ulcer Hypothyroid Plan Today's labs were reviewed Suggest transfusion will defer to primary MD magnesium sulfate IV given yesterday 24-hour urine measurement for total protein in process results pending Suggested blood transfusion for low hemoglobin Slow hydrate 2D echocardiogram results suggestive of ejection fraction of 50% Kidney ultrasound unremarkable Urine studies Anemia work-up noted Monitor renal parameters Antibiotics Avoid nephrotoxic's Per orders Subjective ROS Limited/Unobtainable: No Constitutional: Reports: malaise, weakness Objective Objective Last 24 Hour Vital Signs Date Time Temp Pulse Resp B/P (MAP) Pulse Ox O2 Delivery O2 Flow Rate FiO2 07/12/19 12:33 116/67 07/12/19 12:00 98.1 78 19 116/67 (83) 97 07/12/19 09:00 Room Air 07/12/19 08:00 97.9 70 18 118/69 (85) 99 07/12/19 04:00 98.0 72 20 136/78 (97) 94 07/12/19 00:00 98.6 91 20 101/69 (80) 98 07/11/19 21:00 Room Air 07/11/19 20:00 98.7 86 20 100/69 (79) 99 07/11/19 17:19 176/96 07/11/19 16:00 96.6 74 20 176/96 (122) 97 Intake and Output 07/11/19 07/12/19 19:00 07:00 Intake Total 1475 ml Output Total 250 ml Balance 1475 ml -250 ml Intake Oral 240 ml IV Total 1235 ml Output Urine Total 250 ml # Bowel Movements 1 Current Medications Medications (Trade) Dose Ordered Sig/Deborah Route PRN Reason Start Time Stop Time Status Last Admin Dose Admin Acetaminophen (Tylenol) 650 mg Q4H PRN ORAL fever 07/08/19 19:45 08/07/19 19:44 Acetaminophen/ Hydrocodone Bitart ([place] 5/325) 0.5 tab Q4H PRN ORAL Severe Pain (Pain Scale 7-10) 07/11/19 15:45 07/18/19 15:44 Albuterol/ Ipratropium (Albuterol/ Ipratropium) 3 ml Q4H PRN HHN Shortness of Breath 07/08/19 19:45 07/13/19 19:44 Ascorbic Acid (Vitamin C) 500 mg TWICE A DAY ORAL 07/10/19 18:00 08/09/19 17:59 07/12/19 09:21 Cefepime HCl 2 gm/ Dextrose 110 ml @ 220 mls/hr Q24H IV 07/09/19 18:00 07/16/19 17:59 07/11/19 17:18 Dextrose (Dextrose 50%) 25 ml Q30M PRN IV Hypoglycemia 07/08/19 19:45 10/06/19 19:44 Dextrose (Dextrose 50%) 50 ml Q30M PRN IV Hypoglycemia 07/08/19 19:45 10/06/19 19:44 Dextrose/Sodium Chloride 1,000 ml @ 125 mls/hr Q8H IV 07/08/19 19:45 08/07/19 19:44 07/12/19 04:00 Folic Acid (Folate) 5 mg DAILY ORAL 07/10/19 09:00 08/09/19 08:59 07/12/19 09:21 Gadobutrol (Gadavist) 7.5 mmol NOW PRN IV Radiology Procedure 07/10/19 15:15 07/14/19 15:15 Hydralazine HCl (Apresoline) 25 mg Q4HR PRN ORAL BP over 160 systolic 07/09/19 14:45 10/07/19 14:44 07/11/19 17:19 Multivitamins (Multivitamins) 1 tab DAILY ORAL 07/11/19 09:00 08/10/19 08:59 07/12/19 09:21 Nitroglycerin (Ntg) 0.4 mg Q5M PRN SL Prn Chest Pain 07/08/19 19:45 08/07/19 19:44 Nitroglycerin (Ntg) 1 patch Q24H TDERMAL 07/10/19 13:00 08/09/19 12:59 07/12/19 12:33 Ondansetron HCl (Zofran) 4 mg Q6H PRN IVP Nausea & Vomiting 07/08/19 19:45 08/07/19 19:44 Pantoprazole (Protonix) 40 mg DAILY ORAL 07/13/19 09:00 08/08/19 20:59 Polyethylene Glycol (Miralax) 17 gm DAILYPRN PRN ORAL Constipation 07/08/19 19:45 08/07/19 19:44 Potassium Chloride 100 ml @ 100 mls/hr Q1H IVPB 07/12/19 13:00 07/12/19 14:59 Sodium Citrate (Bicitra) 30 ml EVERY 6 HOURS ORAL 07/09/19 14:45 08/08/19 14:44 07/12/19 12:33 Tamsulosin HCl (Flomax) 0.4 mg BID ORAL 07/09/19 09:00 08/08/19 08:59 07/12/19 09:21 Temazepam (Restoril) 15 mg HSPRN PRN ORAL Insomnia 07/08/19 19:45 07/15/19 19:44 Vancomycin HCl (Vanco rx to dose) 1 ea DAILY PRN MISC Per rx protocol 07/08/19 21:15 08/07/19 21:14 Vancomycin HCl 1 gm/Sodium Chloride 275 ml @ 183.708 mls/hr ONCE ONCE IVPB 07/12/19 14:00 07/12/19 15:29 Zinc Sulfate (Zinc Sulfate) 220 mg DAILY ORAL 07/11/19 09:00 07/21/19 08:59 07/12/19 09:21 Laboratory Tests 07/12/19 06:00: White Blood Count 14.5H, Red Blood Count 3.01L, Hemoglobin 8.0L, Hematocrit 24.3L, Mean Corpuscular Volume 81, Mean Corpuscular Hemoglobin 26.7L, Mean Corpuscular Hemoglobin Concent 33.1, Red Cell Distribution Width 17.4H, Platelet Count 96L, Mean Platelet Volume 8.4, Neutrophils (%) (Auto) , Lymphocytes (%) (Auto) , Monocytes (%) (Auto) , Eosinophils (%) (Auto) , Basophils (%) (Auto) , Differential Total Cells Counted 100, Neutrophils % ( Manual) 67, Lymphocytes % (Manual) 18L, Monocytes % (Manual) 4, Eosinophils % ( Manual) 10H, Basophils % (Manual) 1, Band Neutrophils 0, Platelet Estimate DecreasedL, Platelet Morphology Normal, Hypochromasia 2+, Anisocytosis 1+, Spherocytes 1+, Sodium Level 142, Potassium Level 3.2L, Chloride Level 115H, Carbon Dioxide Level 12L, Anion Gap 15, Blood Urea Nitrogen 36H, Creatinine 2.3H , Estimat Glomerular Filtration Rate 34.8, Glucose Level 82, Calcium Level 8.8, Total Bilirubin 0.3, Aspartate Amino Transf (AST/SGOT) 27, Alanine Aminotransferase (ALT/SGPT) 13, Alkaline Phosphatase 85, Total Protein 5.8L, Albumin 1.5L, Globulin 4.3, Albumin/Globulin Ratio 0.3L, Amylase Level 199H, Lipase 1599H, Random Vancomycin Level 17.9, Hepatitis A IgM Antibody [Pending], Hepatitis B Surface Antigen [Pending], Hepatitis B Core IgM Antibody [Pending], Hepatitis C Antibody [Pending] Height (Feet): 6 Height (Inches): 0.00 Weight (Pounds): 167 General Appearance: no apparent distress Cardiovascular: normal rate Respiratory/Chest: decreased breath sounds Abdomen: distended Objective No change Zander Razo MD Jul 12, 2019 13:52
[2019-07-12] MEDS: Vancomycin 1 GM in NS 275 ML IVPB ONE ×2 (14:00→15:38)
--- NOTE | 2019-07-12 14:28 | Pulmonology Progress Note ---
Assessment/Plan Problems: (1) Sepsis (2) Altered level of consciousness (3) COPD (chronic obstructive pulmonary disease) (4) Pancreatitis (5) Decubitus skin ulcer (6) Hypertension (7) BPH (benign prostatic hyperplasia) (8) HIV disease Assessment/Plan mental status improved wound care iv abx adams culture, VRE positive, BC negative f/u amylase lipase swallow study \ IV fluids Renal, and ID evaluation appreciated dvt prophylaxis. Subjective ROS Limited/Unobtainable: No Constitutional: Reports: no symptoms HEENT: Repors: no symptoms Respiratory: Reports: no symptoms Allergies: Coded Allergies: No Known Allergies (Unverified , 03/02/19) Objective Last 24 Hour Vital Signs Date Time Temp Pulse Resp B/P (MAP) Pulse Ox O2 Delivery O2 Flow Rate FiO2 07/12/19 12:33 116/67 07/12/19 12:00 98.1 78 19 116/67 (83) 97 07/12/19 09:00 Room Air 07/12/19 08:00 97.9 70 18 118/69 (85) 99 07/12/19 04:00 98.0 72 20 136/78 (97) 94 07/12/19 00:00 98.6 91 20 101/69 (80) 98 07/11/19 21:00 Room Air 07/11/19 20:00 98.7 86 20 100/69 (79) 99 07/11/19 17:19 176/96 07/11/19 16:00 96.6 74 20 176/96 (122) 97 Intake and Output 07/11/19 07/12/19 19:00 07:00 Intake Total 1475 ml Output Total 250 ml Balance 1475 ml -250 ml Intake Oral 240 ml IV Total 1235 ml Output Urine Total 250 ml # Bowel Movements 1 General Appearance: WD/WN, cachetic Respiratory/Chest: chest wall non-tender, lungs clear Cardiovascular: normal peripheral pulses, regular rhythm Genitourinary: normal external genitalia Skin: no rash Microbiology Date/Time Source Procedure Growth Status 07/10/19 18:25 Indwelling Cath Urine Culture - Preliminary Yeast Species Resulted Laboratory Tests 07/12/19 06:00: White Blood Count 14.5H, Red Blood Count 3.01L, Hemoglobin 8.0L, Hematocrit 24.3L, Mean Corpuscular Volume 81, Mean Corpuscular Hemoglobin 26.7L, Mean Corpuscular Hemoglobin Concent 33.1, Red Cell Distribution Width 17.4H, Platelet Count 96L, Mean Platelet Volume 8.4, Neutrophils (%) (Auto) , Lymphocytes (%) (Auto) , Monocytes (%) (Auto) , Eosinophils (%) (Auto) , Basophils (%) (Auto) , Differential Total Cells Counted 100, Neutrophils % ( Manual) 67, Lymphocytes % (Manual) 18L, Monocytes % (Manual) 4, Eosinophils % ( Manual) 10H, Basophils % (Manual) 1, Band Neutrophils 0, Platelet Estimate DecreasedL, Platelet Morphology Normal, Hypochromasia 2+, Anisocytosis 1+, Spherocytes 1+, Sodium Level 142, Potassium Level 3.2L, Chloride Level 115H, Carbon Dioxide Level 12L, Anion Gap 15, Blood Urea Nitrogen 36H, Creatinine 2.3H , Estimat Glomerular Filtration Rate 34.8, Glucose Level 82, Calcium Level 8.8, Total Bilirubin 0.3, Aspartate Amino Transf (AST/SGOT) 27, Alanine Aminotransferase (ALT/SGPT) 13, Alkaline Phosphatase 85, Total Protein 5.8L, Albumin 1.5L, Globulin 4.3, Albumin/Globulin Ratio 0.3L, Amylase Level 199H, Lipase 1599H, Random Vancomycin Level 17.9, Hepatitis A IgM Antibody [Pending], Hepatitis B Surface Antigen [Pending], Hepatitis B Core IgM Antibody [Pending], Hepatitis C Antibody [Pending] Current Medications Medications (Trade) Dose Ordered Sig/Deborah Route PRN Reason Start Time Stop Time Status Last Admin Dose Admin Acetaminophen (Tylenol) 650 mg Q4H PRN ORAL fever 07/08/19 19:45 08/07/19 19:44 Acetaminophen/ Hydrocodone Bitart ([place] 5/325) 0.5 tab Q4H PRN ORAL Severe Pain (Pain Scale 7-10) 07/11/19 15:45 07/18/19 15:44 Albuterol/ Ipratropium (Albuterol/ Ipratropium) 3 ml Q4H PRN HHN Shortness of Breath 07/08/19 19:45 07/13/19 19:44 Ascorbic Acid (Vitamin C) 500 mg TWICE A DAY ORAL 07/10/19 18:00 08/09/19 17:59 07/12/19 09:21 Cefepime HCl 2 gm/ Dextrose 110 ml @ 220 mls/hr Q24H IV 07/09/19 18:00 07/16/19 17:59 07/11/19 17:18 Dextrose (Dextrose 50%) 25 ml Q30M PRN IV Hypoglycemia 07/08/19 19:45 10/06/19 19:44 Dextrose (Dextrose 50%) 50 ml Q30M PRN IV Hypoglycemia 07/08/19 19:45 10/06/19 19:44 Dextrose/Sodium Chloride 1,000 ml @ 125 mls/hr Q8H IV 07/08/19 19:45 08/07/19 19:44 07/12/19 04:00 Folic Acid (Folate) 5 mg DAILY ORAL 07/10/19 09:00 08/09/19 08:59 07/12/19 09:21 Gadobutrol (Gadavist) 7.5 mmol NOW PRN IV Radiology Procedure 07/10/19 15:15 07/14/19 15:15 Hydralazine HCl (Apresoline) 25 mg Q4HR PRN ORAL BP over 160 systolic 07/09/19 14:45 10/07/19 14:44 07/11/19 17:19 Multivitamins (Multivitamins) 1 tab DAILY ORAL 07/11/19 09:00 08/10/19 08:59 07/12/19 09:21 Nitroglycerin (Ntg) 0.4 mg Q5M PRN SL Prn Chest Pain 07/08/19 19:45 08/07/19 19:44 Nitroglycerin (Ntg) 1 patch Q24H TDERMAL 07/10/19 13:00 08/09/19 12:59 07/12/19 12:33 Ondansetron HCl (Zofran) 4 mg Q6H PRN IVP Nausea & Vomiting 07/08/19 19:45 08/07/19 19:44 Pantoprazole (Protonix) 40 mg BID ORAL 07/12/19 18:00 08/08/19 20:59 Polyethylene Glycol (Miralax) 17 gm DAILYPRN PRN ORAL Constipation 07/08/19 19:45 08/07/19 19:44 Potassium Chloride 100 ml @ 100 mls/hr Q1H IVPB 07/12/19 13:00 07/12/19 14:59 Sodium Citrate (Bicitra) 45 ml EVERY 6 HOURS ORAL 07/12/19 18:00 08/08/19 14:44 Tamsulosin HCl (Flomax) 0.4 mg BID ORAL 07/09/19 09:00 08/08/19 08:59 07/12/19 09:21 Temazepam (Restoril) 15 mg HSPRN PRN ORAL Insomnia 07/08/19 19:45 07/15/19 19:44 Vancomycin HCl (Vanco rx to dose) 1 ea DAILY PRN MISC Per rx protocol 07/08/19 21:15 08/07/19 21:14 Vancomycin HCl 1 gm/Sodium Chloride 275 ml @ 183.708 mls/hr ONCE ONCE IVPB 07/12/19 14:00 07/12/19 15:29 Zinc Sulfate (Zinc Sulfate) 220 mg DAILY ORAL 07/11/19 09:00 07/21/19 08:59 07/12/19 09:21 Rico Chavarria MD Jul 12, 2019 14:28
[2019-07-12 16:00] VITALS: BP 119/70
[2019-07-12] MEDS ORDERED: Lidocaine 1% Plain 30 ml INJ PRN (16:45)
[2019-07-12] MEDS ORDERED: Heparin1,000 units/500ml Premix(Conc:2 units/ml) IV PRN (16:45)
[2019-07-12] MEDS: Cefepime HCl 2 GM in D5W 110 ML IV SCH (17:56)
[2019-07-12 20:00] VITALS: BP 109/59
[2019-07-12] MEDS: Dyna-Hex 2% Top Sol 2oz TOPIC SCH (20:00)
[2019-07-12] MEDS ORDERED: Glucagon 1mg Inj IM ONE ×2 (22:15→22:45)
[2019-07-13] VITALS: BP 115/56
[2019-07-13] MEDS: D5 1/2NS 1,000 ML IV SCH ×2 (03:45→12:04)
[2019-07-13 04:00] VITALS: BP 117/71
[2019-07-13] MEDS: Sodium Citrate 30ml ORAL SCH ×4 (06:00→18:00)
[2019-07-13 06:50] LABS: HEMATOCRIT 21.8 % (42.0-52.0); HEMOGLOBIN 7.3 G/DL (14.2-18.0); MEAN CORPUSCULAR VOLUME 80 FL (80-99); PLATELET COUNT 73 K/UL (150-450); RED BLOOD COUNT 2.72 M/UL (4.70-6.10); RED CELL DISTRIBUTION WIDTH 17.2 % (11.6-14.8); WHITE BLOOD COUNT 14.2 K/UL (4.8-10.8)
[2019-07-13 07:16] LABS: ALANINE AMINOTRANSFERASE 14 U/L (12-78); ALBUMIN 1.3 G/DL (3.4-5.0); ALBUMIN/GLOBULIN RATIO 0.3 (1.0-2.7); ALKALINE PHOSPHATASE 82 U/L (46-116); AMYLASE 168 U/L (25-115); ANION GAP 15 mmol/L (5-15); ASPARTATE AMINO TRANSFERASE 26 U/L (15-37); BILIRUBIN,TOTAL 0.2 MG/DL (0.2-1.0); BLOOD UREA NITROGEN 32 mg/dL (7-18); CALCIUM 8.1 MG/DL (8.5-10.1); CARBON DIOXIDE 12 MMOL/L (21-32); CHLORIDE 117 MMOL/L (98-107); CREATININE 2.1 MG/DL (0.55-1.30); POTASSIUM 3.3 MMOL/L (3.5-5.1); SODIUM 144 MMOL/L (136-145)
[2019-07-13 07:47] LABS: PHOSPHORUS 4.3 MG/DL (2.5-4.9)
[2019-07-13 08:00] VITALS: BP 121/73
[2019-07-13] MEDS: Ascorbic Acid 500mg tab ORAL SCH ×2 (09:00→18:00)
[2019-07-13] MEDS: Zinc Sulfate 220mg cap ORAL SCH (09:00)
[2019-07-13] MEDS: Tamsulosin 0.4mg cap ORAL SCH ×2 (09:00→18:00)
[2019-07-13] MEDS: Bactrim SS Tab ORAL SCH (09:00)
--- NOTE | 2019-07-13 10:21 | General Progress Note ---
Assessment/Plan Assessment/Plan: (1) HIV (2) Sacral Decubitus ulcer (3) Altered mental status Patient will be continued on Daisetta as needed. D/w Dr. Mendoza and he concurred. Subjective Date patient seen: Jul 13, 2019 Time patient seen: 10:00 - am ROS Limited/Unobtainable: Yes Allergies: Coded Allergies: No Known Allergies (Unverified , 03/02/19) Subjective Patient still not complaining of pain at this time. Has not requested the Daisetta. Objective Last 24 Hour Vital Signs Date Time Temp Pulse Resp B/P (MAP) Pulse Ox O2 Delivery O2 Flow Rate FiO2 07/13/19 09:00 Room Air 07/13/19 08:00 98.1 87 20 121/73 (89) 96 07/13/19 04:00 98.0 75 18 117/71 (86) 97 07/13/19 00:00 98.2 81 20 115/56 (75) 97 07/12/19 21:00 Room Air 07/12/19 20:00 98.3 79 18 109/59 (76) 98 07/12/19 16:00 97.3 77 19 119/70 (86) 100 07/12/19 12:33 116/67 07/12/19 12:00 98.1 78 19 116/67 (83) 97 Intake and Output 07/12/19 07/13/19 19:00 07:00 Intake Total 75 ml 375 ml Output Total 125 ml 80 ml Balance -50 ml 295 ml Intake Oral 75 ml IV Total 375 ml Output Urine Total 125 ml 80 ml # Voids 1 Laboratory Tests 07/13/19 06:25: White Blood Count 14.2H, Red Blood Count 2.72L, Hemoglobin 7.3L, Hematocrit 21.8L, Mean Corpuscular Volume 80, Mean Corpuscular Hemoglobin 27.1, Mean Corpuscular Hemoglobin Concent 33.8, Red Cell Distribution Width 17.2H, Platelet Count 73L, Mean Platelet Volume 9.6, Neutrophils (%) (Auto) , Lymphocytes (%) (Auto) , Monocytes (%) (Auto) , Eosinophils (%) (Auto) , Basophils (%) (Auto) , Sodium Level 144, Potassium Level 3.3L, Chloride Level 117H, Carbon Dioxide Level 12L, Anion Gap 15, Blood Urea Nitrogen 32H, Creatinine 2.1H, Estimat Glomerular Filtration Rate 38.7, Glucose Level 133H, Uric Acid 11.2H, Calcium Level 8.1L, Phosphorus Level 4.3, Magnesium Level 1.8, Total Bilirubin 0.2, Aspartate Amino Transf (AST/SGOT) 26, Alanine Aminotransferase (ALT/SGPT) 14, Alkaline Phosphatase 82, C-Reactive Protein, Quantitative 11.2H, Pro-B-Type Natriuretic Peptide 3968H, Total Protein 5.3L, Albumin 1.3L, Globulin 4.0, Albumin/Globulin Ratio 0.3L, Amylase Level 168H, Lipase 1313H Height (Feet): 6 Height (Inches): 0.00 Weight (Pounds): 167 Objective General Appearance: no apparent distress EENT: PERRL/EOMI Neck: non-tender, normal alignment Cardiovascular: normal rate, regular rhythm Respiratory/Chest: decreased breath sounds Abdomen: non tender, soft Edema: mild edema Neurologic: responsive Skin: warm/dry Rachid Hennessy Jul 13, 2019 10:21
--- NOTE | 2019-07-13 10:31 | General Progress Note ---
Assessment/Plan Assessment/Plan: 1. History of HIV. 2.thrombocytopenia 3. Anemia. 4. Sepsis. 5. UTIs with MRSA. 6. Hypertension. 7. COPD. 8. BPH. 9. Sacral decubital ulcerations, stage III. 10. Malnutrition. 11. pancreatitis 12. Dilated IHD stable H&H fu stool ob fu cbc hoid GI procedures for now improving amyalse and lipase asymptomatic us reviewed repeat labs in am add marinol off heparin given thrombocytopenia Subjective Allergies: Coded Allergies: No Known Allergies (Unverified , 03/02/19) Subjective poor po intake refusing meds Objective Last 24 Hour Vital Signs Date Time Temp Pulse Resp B/P (MAP) Pulse Ox O2 Delivery O2 Flow Rate FiO2 07/13/19 09:00 Room Air 07/13/19 08:00 98.1 87 20 121/73 (89) 96 07/13/19 04:00 98.0 75 18 117/71 (86) 97 07/13/19 00:00 98.2 81 20 115/56 (75) 97 07/12/19 21:00 Room Air 07/12/19 20:00 98.3 79 18 109/59 (76) 98 07/12/19 16:00 97.3 77 19 119/70 (86) 100 07/12/19 12:33 116/67 07/12/19 12:00 98.1 78 19 116/67 (83) 97 Intake and Output 07/12/19 07/13/19 19:00 07:00 Intake Total 75 ml 375 ml Output Total 125 ml 80 ml Balance -50 ml 295 ml Intake Oral 75 ml IV Total 375 ml Output Urine Total 125 ml 80 ml # Voids 1 Laboratory Tests 07/13/19 06:25: White Blood Count 14.2H, Red Blood Count 2.72L, Hemoglobin 7.3L, Hematocrit 21.8L, Mean Corpuscular Volume 80, Mean Corpuscular Hemoglobin 27.1, Mean Corpuscular Hemoglobin Concent 33.8, Red Cell Distribution Width 17.2H, Platelet Count 73L, Mean Platelet Volume 9.6, Neutrophils (%) (Auto) , Lymphocytes (%) (Auto) , Monocytes (%) (Auto) , Eosinophils (%) (Auto) , Basophils (%) (Auto) , Sodium Level 144, Potassium Level 3.3L, Chloride Level 117H, Carbon Dioxide Level 12L, Anion Gap 15, Blood Urea Nitrogen 32H, Creatinine 2.1H, Estimat Glomerular Filtration Rate 38.7, Glucose Level 133H, Uric Acid 11.2H, Calcium Level 8.1L, Phosphorus Level 4.3, Magnesium Level 1.8, Total Bilirubin 0.2, Aspartate Amino Transf (AST/SGOT) 26, Alanine Aminotransferase (ALT/SGPT) 14, Alkaline Phosphatase 82, C-Reactive Protein, Quantitative 11.2H, Pro-B-Type Natriuretic Peptide 3968H, Total Protein 5.3L, Albumin 1.3L, Globulin 4.0, Albumin/Globulin Ratio 0.3L, Amylase Level 168H, Lipase 1313H Height (Feet): 6 Height (Inches): 0.00 Weight (Pounds): 167 General Appearance: alert EENT: normal ENT inspection Neck: supple Cardiovascular: normal rate Respiratory/Chest: decreased breath sounds Abdomen: normal bowel sounds, non tender, soft Extremities: non-tender Mansoor Interiano MD Jul 13, 2019 10:31
[2019-07-13 12:00] VITALS: BP 119/67
--- NOTE | 2019-07-13 12:33 | Infectious Diseases Prog Note ---
Assessment/Plan Assessment/Plan 63yo man admitted with abdominal pain and diarrhea. Afebrile Leukocytosis ( Ch, doubt ID related ) ? ALOC improved, Hx of Diarrhea/colitis- 03/02 CT: Suspected colitis with the thickening of the wall the colon. Correlate clinically. Thickening of the wall the urinary bladder. Correlate for cystitis. C diff negative x2 stool cx negative stool o/p x1 negative -Negative: E. histolytica ab, Echinococcus ab HIV Screen positive- new diagnosis in February 2019 HIV-1 Abt positive. 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 no evid of biliary - US : Mild intrahepatic biliary ductal dilatation. MRI of brain ( could not be done ) COPD. Hypertension. BPH. History of cocaine abuse in the past. Bedbound. PLAN: pt is refusing meds from time time making HIV Rx difficult on Bactrim DC for PCP PPx DC IV Vanco and Cefepime # 4/5 monitor CBC, temp pt must follow up with PMD/HIV specialist once discharged CD4 HIV Genotype Subjective Allergies: Coded Allergies: No Known Allergies (Unverified , 03/02/19) Subjective afebrile no acute event Objective Vital Signs Last 24 Hour Vital Signs Date Time Temp Pulse Resp B/P (MAP) Pulse Ox O2 Delivery O2 Flow Rate FiO2 07/13/19 12:00 98.4 82 20 119/67 (84) 97 07/13/19 09:00 Room Air 07/13/19 08:00 98.1 87 20 121/73 (89) 96 07/13/19 04:00 98.0 75 18 117/71 (86) 97 07/13/19 00:00 98.2 81 20 115/56 (75) 97 07/12/19 21:00 Room Air 07/12/19 20:00 98.3 79 18 109/59 (76) 98 07/12/19 16:00 97.3 77 19 119/70 (86) 100 07/12/19 12:33 116/67 Height (Feet): 6 Height (Inches): 0.00 Weight (Pounds): 167 Respiratory/Chest: lungs clear Cardiovascular: regular rhythm Abdomen: soft, non tender Microbiology Date/Time Source Procedure Growth Status 3/24/20 18:25 Indwelling Cath Urine Culture - Final Ilda Albicans Complete Laboratory Tests Test 07/13/19 06:25 White Blood Count 14.2 K/UL (4.8-10.8) H Red Blood Count 2.72 M/UL (4.70-6.10) L Hemoglobin 7.3 G/DL (14.2-18.0) L Hematocrit 21.8 % (42.0-52.0) L Mean Corpuscular Volume 80 FL (80-99) Mean Corpuscular Hemoglobin 27.1 PG (27.0-31.0) Mean Corpuscular Hemoglobin Concent 33.8 G/DL (32.0-36.0) Red Cell Distribution Width 17.2 % (11.6-14.8) H Platelet Count 73 K/UL (150-450) L Mean Platelet Volume 9.6 FL (6.5-10.1) Neutrophils (%) (Auto) % (45.0-75.0) Lymphocytes (%) (Auto) % (20.0-45.0) Monocytes (%) (Auto) % (1.0-10.0) Eosinophils (%) (Auto) % (0.0-3.0) Basophils (%) (Auto) % (0.0-2.0) Sodium Level 144 MMOL/L (136-145) Potassium Level 3.3 MMOL/L (3.5-5.1) L Chloride Level 117 MMOL/L (98-107) H Carbon Dioxide Level 12 MMOL/L (21-32) L Anion Gap 15 mmol/L (5-15) Blood Urea Nitrogen 32 mg/dL (7-18) H Creatinine 2.1 MG/DL (0.55-1.30) H Estimat Glomerular Filtration Rate 38.7 mL/min (>60) Glucose Level 133 MG/DL (74-106) H Uric Acid 11.2 MG/DL (2.6-7.2) H Calcium Level 8.1 MG/DL (8.5-10.1) L Phosphorus Level 4.3 MG/DL (2.5-4.9) Magnesium Level 1.8 MG/DL (1.8-2.4) Total Bilirubin 0.2 MG/DL (0.2-1.0) Aspartate Amino Transf (AST/SGOT) 26 U/L (15-37) Alanine Aminotransferase (ALT/SGPT) 14 U/L (12-78) Alkaline Phosphatase 82 U/L (46-116) C-Reactive Protein, Quantitative 11.2 mg/dL (0.00-0.90) H Pro-B-Type Natriuretic Peptide 3968 pg/mL (0-125) H Total Protein 5.3 G/DL (6.4-8.2) L Albumin 1.3 G/DL (3.4-5.0) L Globulin 4.0 g/dL Albumin/Globulin Ratio 0.3 (1.0-2.7) L Amylase Level 168 U/L (25-115) H Lipase 1313 U/L (73-393) H Current Medications Medications (Trade) Dose Ordered Sig/Deborah Route PRN Reason Start Time Stop Time Status Last Admin Dose Admin Acetaminophen (Tylenol) 650 mg Q4H PRN ORAL fever 07/08/19 19:45 08/07/19 19:44 Acetaminophen/ Hydrocodone Bitart ([place] 5/325) 0.5 tab Q4H PRN ORAL Severe Pain (Pain Scale 7-10) 07/11/19 15:45 07/18/19 15:44 Albuterol/ Ipratropium (Albuterol/ Ipratropium) 3 ml Q4H PRN HHN Shortness of Breath 07/08/19 19:45 07/13/19 19:44 Allopurinol (allopurinoL) 300 mg DAILY ORAL 07/14/19 09:00 08/13/19 08:59 Ascorbic Acid (Vitamin C) 500 mg TWICE A DAY ORAL 07/10/19 18:00 08/09/19 17:59 07/12/19 17:54 Cefepime HCl 2 gm/ Dextrose 110 ml @ 220 mls/hr Q24H IV 07/09/19 18:00 07/16/19 17:59 07/11/19 17:18 Chlorhexidine Gluconate (Leslie-Hex 2%) 1 applic DAILY@2000 TOPIC 07/12/19 20:00 10/10/19 19:59 Dextrose (Dextrose 50%) 25 ml Q30M PRN IV Hypoglycemia 07/08/19 19:45 10/06/19 19:44 07/13/19 05:45 Dextrose (Dextrose 50%) 50 ml Q30M PRN IV Hypoglycemia 07/08/19 19:45 10/06/19 19:44 Dextrose/Sodium Chloride 1,000 ml @ 125 mls/hr Q8H IV 07/08/19 19:45 08/07/19 19:44 07/13/19 12:04 Dronabinol (Marinol) 5 mg BID ORAL 07/13/19 18:00 10/11/19 17:59 Folic Acid (Folate) 5 mg DAILY ORAL 07/10/19 09:00 08/09/19 08:59 07/12/19 09:21 Gadobutrol (Gadavist) 7.5 mmol NOW PRN IV Radiology Procedure 07/10/19 15:15 07/14/19 15:15 Heparin Sodium/ Sodium Chloride (Heparin 1000 units/500ml Premix) 1,000 unit ONCE PRN IV picc line placement 07/12/19 16:45 07/14/19 16:44 Hydralazine HCl (Apresoline) 25 mg Q4HR PRN ORAL BP over 160 systolic 07/09/19 14:45 10/07/19 14:44 07/11/19 17:19 Lidocaine HCl (Xylocaine 1% 30ml) 30 ml ONCE PRN INJ picc line placement 07/12/19 16:45 07/14/19 16:44 Multivitamins (Multivitamins) 1 tab DAILY ORAL 07/11/19 09:00 08/10/19 08:59 07/12/19 09:21 Nitroglycerin (Ntg) 0.4 mg Q5M PRN SL Prn Chest Pain 07/08/19 19:45 08/07/19 19:44 Nitroglycerin (Ntg) 1 patch Q24H TDERMAL 07/10/19 13:00 08/09/19 12:59 07/12/19 12:33 Ondansetron HCl (Zofran) 4 mg Q6H PRN IVP Nausea & Vomiting 07/08/19 19:45 08/07/19 19:44 Pantoprazole (Protonix) 40 mg BID ORAL 07/12/19 18:00 08/08/19 20:59 07/12/19 17:55 Polyethylene Glycol (Miralax) 17 gm DAILYPRN PRN ORAL Constipation 07/08/19 19:45 08/07/19 19:44 Potassium Chloride (K-Dur) 40 meq TWICE A DAY ORAL 07/13/19 09:00 10/11/19 08:59 Sodium Citrate (Bicitra) 45 ml EVERY 6 HOURS ORAL 07/12/19 18:00 08/08/19 14:44 Tamsulosin HCl (Flomax) 0.4 mg BID ORAL 07/09/19 09:00 08/08/19 08:59 07/12/19 17:55 Temazepam (Restoril) 15 mg HSPRN PRN ORAL Insomnia 07/08/19 19:45 07/15/19 19:44 Trimethoprim/ Sulfamethoxazole (Bactrim Single Strength) 1 tab DAILY ORAL 07/13/19 09:00 07/20/19 08:59 Vancomycin HCl (Vanco rx to dose) 1 ea DAILY PRN MISC Per rx protocol 07/08/19 21:15 08/07/19 21:14 Zinc Sulfate (Zinc Sulfate) 220 mg DAILY ORAL 07/11/19 09:00 07/21/19 08:59 07/12/19 09:21 Steve Rivas MD Jul 13, 2019 12:33
[2019-07-13] MEDS: Nitroglycerin Patch 0.4mg TDERMAL SCH (13:16)
--- NOTE | 2019-07-13 15:08 | Nephrology Progress Note ---
Assessment/Plan Problem List: (1) Pancreatitis (2) Hypothermia (3) Hypertension (4) COPD (chronic obstructive pulmonary disease) (5) BPH (benign prostatic hyperplasia) (6) HIV disease (7) Anemia Assessment Acute renal failure, partly dehydration Anemia Hypoalbuminemia High lipase level of 1999, Pancreatitis UTI Hypothermia Toxic metabolic encephalopathy Sepsis Decubitus skin ulcer Hypothyroid Plan Today's labs were reviewed Suggest transfusion will defer to primary MD magnesium sulfate and potassium as needed 24-hour urine measurement for total protein results noted unremarkable Suggested blood transfusion for low hemoglobin Slow hydrate Add allopurinol 2D echocardiogram results suggestive of ejection fraction of 50% Kidney ultrasound unremarkable Urine studies Anemia work-up noted Monitor renal parameters Antibiotics Avoid nephrotoxic's Per orders Subjective ROS Limited/Unobtainable: No Constitutional: Reports: malaise, weakness Objective Objective Last 24 Hour Vital Signs Date Time Temp Pulse Resp B/P (MAP) Pulse Ox O2 Delivery O2 Flow Rate FiO2 07/13/19 13:16 119/67 07/13/19 12:00 98.4 82 20 119/67 (84) 97 07/13/19 09:00 Room Air 07/13/19 08:00 98.1 87 20 121/73 (89) 96 07/13/19 04:00 98.0 75 18 117/71 (86) 97 07/13/19 00:00 98.2 81 20 115/56 (75) 97 07/12/19 21:00 Room Air 07/12/19 20:00 98.3 79 18 109/59 (76) 98 07/12/19 16:00 97.3 77 19 119/70 (86) 100 Intake and Output 07/12/19 07/13/19 19:00 07:00 Intake Total 75 ml 375 ml Output Total 125 ml 80 ml Balance -50 ml 295 ml Intake Oral 75 ml IV Total 375 ml Output Urine Total 125 ml 80 ml # Voids 1 Laboratory Tests 07/13/19 06:25: White Blood Count 14.2H, Red Blood Count 2.72L, Hemoglobin 7.3L, Hematocrit 21.8L, Mean Corpuscular Volume 80, Mean Corpuscular Hemoglobin 27.1, Mean Corpuscular Hemoglobin Concent 33.8, Red Cell Distribution Width 17.2H, Platelet Count 73L, Mean Platelet Volume 9.6, Neutrophils (%) (Auto) , Lymphocytes (%) (Auto) , Monocytes (%) (Auto) , Eosinophils (%) (Auto) , Basophils (%) (Auto) , Sodium Level 144, Potassium Level 3.3L, Chloride Level 117H, Carbon Dioxide Level 12L, Anion Gap 15, Blood Urea Nitrogen 32H, Creatinine 2.1H, Estimat Glomerular Filtration Rate 38.7, Glucose Level 133H, Uric Acid 11.2H, Calcium Level 8.1L, Phosphorus Level 4.3, Magnesium Level 1.8, Total Bilirubin 0.2, Aspartate Amino Transf (AST/SGOT) 26, Alanine Aminotransferase (ALT/SGPT) 14, Alkaline Phosphatase 82, C-Reactive Protein, Quantitative 11.2H, Pro-B-Type Natriuretic Peptide 3968H, Total Protein 5.3L, Albumin 1.3L, Globulin 4.0, Albumin/Globulin Ratio 0.3L, Amylase Level 168H, Lipase 1313H, HIV-1 RNA, Quantitative copies/mL [Pending], HIV Genotype [Pending ] Height (Feet): 6 Height (Inches): 0.00 Weight (Pounds): 167 General Appearance: no apparent distress Cardiovascular: normal rate Respiratory/Chest: decreased breath sounds Abdomen: soft Objective No change Zander Razo MD Jul 13, 2019 15:08
[2019-07-13 16:00] VITALS: BP 132/84
[2019-07-13] MEDS: NovoLOG Insulin Flexpen SUBQ SCH ×2 (16:30→20:48)
--- NOTE | 2019-07-13 17:44 | Pulmonology Progress Note ---
Assessment/Plan Problems: (1) Sepsis (2) Altered level of consciousness (3) COPD (chronic obstructive pulmonary disease) (4) Pancreatitis (5) Decubitus skin ulcer (6) Hypertension (7) BPH (benign prostatic hyperplasia) (8) HIV disease Assessment/Plan refusing at times meds and iv fluids mental status improved wound care iv abx adams culture, VRE positive, BC negative f/u amylase lipase swallow study \ IV fluids Renal, and ID evaluation appreciated dvt prophylaxis. Subjective ROS Limited/Unobtainable: No Constitutional: Reports: no symptoms HEENT: Repors: no symptoms Respiratory: Reports: no symptoms Allergies: Coded Allergies: No Known Allergies (Unverified , 03/02/19) Objective Last 24 Hour Vital Signs Date Time Temp Pulse Resp B/P (MAP) Pulse Ox O2 Delivery O2 Flow Rate FiO2 07/13/19 16:45 67 70 77 07/13/19 16:00 98.2 88 20 132/84 (100) 97 07/13/19 13:16 119/67 07/13/19 12:00 98.4 82 20 119/67 (84) 97 07/13/19 09:00 Room Air 07/13/19 08:00 98.1 87 20 121/73 (89) 96 07/13/19 04:00 98.0 75 18 117/71 (86) 97 07/13/19 00:00 98.2 81 20 115/56 (75) 97 07/12/19 21:00 Room Air 07/12/19 20:00 98.3 79 18 109/59 (76) 98 Intake and Output 07/12/19 07/13/19 19:00 07:00 Intake Total 75 ml 375 ml Output Total 125 ml 80 ml Balance -50 ml 295 ml Intake Oral 75 ml IV Total 375 ml Output Urine Total 125 ml 80 ml # Voids 1 General Appearance: WD/WN, no acute distress HEENT: normocephalic Respiratory/Chest: chest wall non-tender, lungs clear Cardiovascular: normal peripheral pulses, normal rate Abdomen: normal bowel sounds, soft, non tender Extremities: no cyanosis Microbiology Date/Time Source Procedure Growth Status 07/10/19 18:25 Indwelling Cath Urine Culture - Final Ilda Albicans Complete Laboratory Tests 07/13/19 06:25: White Blood Count 14.2H, Red Blood Count 2.72L, Hemoglobin 7.3L, Hematocrit 21.8L, Mean Corpuscular Volume 80, Mean Corpuscular Hemoglobin 27.1, Mean Corpuscular Hemoglobin Concent 33.8, Red Cell Distribution Width 17.2H, Platelet Count 73L, Mean Platelet Volume 9.6, Neutrophils (%) (Auto) , Lymphocytes (%) (Auto) , Monocytes (%) (Auto) , Eosinophils (%) (Auto) , Basophils (%) (Auto) , Sodium Level 144, Potassium Level 3.3L, Chloride Level 117H, Carbon Dioxide Level 12L, Anion Gap 15, Blood Urea Nitrogen 32H, Creatinine 2.1H, Estimat Glomerular Filtration Rate 38.7, Glucose Level 133H, Uric Acid 11.2H, Calcium Level 8.1L, Phosphorus Level 4.3, Magnesium Level 1.8, Total Bilirubin 0.2, Aspartate Amino Transf (AST/SGOT) 26, Alanine Aminotransferase (ALT/SGPT) 14, Alkaline Phosphatase 82, C-Reactive Protein, Quantitative 11.2H, Pro-B-Type Natriuretic Peptide 3968H, Total Protein 5.3L, Albumin 1.3L, Globulin 4.0, Albumin/Globulin Ratio 0.3L, Amylase Level 168H, Lipase 1313H, HIV-1 RNA, Quantitative copies/mL [Pending], HIV Genotype [Pending ] 07/13/19 16:00: Miscellaneous Test [Pending] Current Medications Medications (Trade) Dose Ordered Sig/Deborah Route PRN Reason Start Time Stop Time Status Last Admin Dose Admin Acetaminophen (Tylenol) 650 mg Q4H PRN ORAL fever 07/08/19 19:45 08/07/19 19:44 Acetaminophen/ Hydrocodone Bitart ([place] 5/325) 0.5 tab Q4H PRN ORAL Severe Pain (Pain Scale 7-10) 07/11/19 15:45 07/18/19 15:44 Albuterol/ Ipratropium (Albuterol/ Ipratropium) 3 ml Q4H PRN HHN Shortness of Breath 07/08/19 19:45 07/13/19 19:44 Allopurinol (allopurinoL) 300 mg DAILY ORAL 07/14/19 09:00 08/13/19 08:59 Ascorbic Acid (Vitamin C) 500 mg TWICE A DAY ORAL 07/10/19 18:00 08/09/19 17:59 07/12/19 17:54 Chlorhexidine Gluconate (Leslie-Hex 2%) 1 applic DAILY@2000 TOPIC 07/12/19 20:00 10/10/19 19:59 Dextrose (Dextrose 50%) 25 ml Q30M PRN IV Hypoglycemia 07/13/19 14:00 10/11/19 13:59 Dextrose (Dextrose 50%) 50 ml Q30M PRN IV Hypoglycemia 07/13/19 14:00 10/11/19 13:59 Dronabinol (Marinol) 5 mg BID ORAL 07/13/19 18:00 10/11/19 17:59 Folic Acid (Folate) 5 mg DAILY ORAL 07/10/19 09:00 08/09/19 08:59 07/12/19 09:21 Gadobutrol (Gadavist) 7.5 mmol NOW PRN IV Radiology Procedure 07/10/19 15:15 07/14/19 15:15 Heparin Sodium/ Sodium Chloride (Heparin 1000 units/500ml Premix) 1,000 unit ONCE PRN IV picc line placement 07/12/19 16:45 07/14/19 16:44 Hydralazine HCl (Apresoline) 25 mg Q4HR PRN ORAL BP over 160 systolic 07/09/19 14:45 10/07/19 14:44 07/11/19 17:19 Insulin Aspart (NovoLOG) BEFORE MEALS AND HS SUBQ 07/13/19 16:30 10/11/19 16:29 Lidocaine HCl (Xylocaine 1% 30ml) 30 ml ONCE PRN INJ picc line placement 07/12/19 16:45 07/14/19 16:44 Multivitamins (Multivitamins) 1 tab DAILY ORAL 07/11/19 09:00 08/10/19 08:59 07/12/19 09:21 Nitroglycerin (Ntg) 0.4 mg Q5M PRN SL Prn Chest Pain 07/08/19 19:45 08/07/19 19:44 Nitroglycerin (Ntg) 1 patch Q24H TDERMAL 07/10/19 13:00 08/09/19 12:59 07/13/19 13:16 Ondansetron HCl (Zofran) 4 mg Q6H PRN IVP Nausea & Vomiting 07/08/19 19:45 08/07/19 19:44 Pantoprazole (Protonix) 40 mg BID ORAL 07/12/19 18:00 08/08/19 20:59 07/12/19 17:55 Polyethylene Glycol (Miralax) 17 gm DAILYPRN PRN ORAL Constipation 07/08/19 19:45 08/07/19 19:44 Potassium Chloride (K-Dur) 40 meq TWICE A DAY ORAL 07/13/19 09:00 10/11/19 08:59 Sodium Citrate (Bicitra) 45 ml EVERY 6 HOURS ORAL 07/12/19 18:00 08/08/19 14:44 Tamsulosin HCl (Flomax) 0.4 mg BID ORAL 07/09/19 09:00 08/08/19 08:59 07/12/19 17:55 Temazepam (Restoril) 15 mg HSPRN PRN ORAL Insomnia 07/08/19 19:45 07/15/19 19:44 Trimethoprim/ Sulfamethoxazole (Bactrim Single Strength) 1 tab DAILY ORAL 07/13/19 09:00 07/20/19 08:59 Zinc Sulfate (Zinc Sulfate) 220 mg DAILY ORAL 07/11/19 09:00 07/21/19 08:59 07/12/19 09:21 Rico Chavarria MD Jul 13, 2019 17:44
[2019-07-13] MEDS: Dronabinol 2.5mg Cap ORAL SCH (18:00)
[2019-07-13 20:00] VITALS: BP 103/64
[2019-07-13] MEDS: Dyna-Hex 2% Top Sol 2oz TOPIC SCH (20:00)
[2019-07-14] VITALS: BP 100/72
[2019-07-14 04:00] VITALS: BP 103/58
[2019-07-14] MEDS: Sodium Citrate 30ml ORAL SCH ×3 (05:53→12:00)
[2019-07-14] MEDS: NovoLOG Insulin Flexpen SUBQ SCH ×4 (05:53→22:17)
[2019-07-14 08:00] VITALS: BP 117/74
[2019-07-14 08:15] LABS: HEMATOCRIT 24.7 % (42.0-52.0); HEMOGLOBIN 8.2 G/DL (14.2-18.0); MEAN CORPUSCULAR VOLUME 80 FL (80-99); PLATELET COUNT 72 K/UL (150-450); RED BLOOD COUNT 3.09 M/UL (4.70-6.10)
[2019-07-14 08:31] LABS: ALANINE AMINOTRANSFERASE 9 U/L (12-78); ALBUMIN 1.4 G/DL (3.4-5.0); ALBUMIN/GLOBULIN RATIO 0.3 (1.0-2.7); ALKALINE PHOSPHATASE 89 U/L (46-116); AMYLASE 223 U/L (25-115); ANION GAP 13 mmol/L (5-15); ASPARTATE AMINO TRANSFERASE 26 U/L (15-37); BILIRUBIN,TOTAL 0.2 MG/DL (0.2-1.0); BLOOD UREA NITROGEN 34 mg/dL (7-18); CALCIUM 8.6 MG/DL (8.5-10.1); CARBON DIOXIDE 13 MMOL/L (21-32); CHLORIDE 117 MMOL/L (98-107); CREATININE 2.1 MG/DL (0.55-1.30); POTASSIUM 3.3 MMOL/L (3.5-5.1); SODIUM 143 MMOL/L (136-145)
[2019-07-14 08:33] LABS: PHOSPHORUS 4.4 MG/DL (2.5-4.9)
[2019-07-14] MEDS: Tamsulosin 0.4mg cap ORAL SCH ×2 (09:00→18:00)
[2019-07-14] MEDS: Ascorbic Acid 500mg tab ORAL SCH ×2 (09:00→18:00)
[2019-07-14] MEDS: Bactrim SS Tab ORAL SCH (09:00)
[2019-07-14] MEDS: Zinc Sulfate 220mg cap ORAL SCH (09:00)
[2019-07-14] MEDS: Dronabinol 2.5mg Cap ORAL SCH ×2 (09:00→18:00)
[2019-07-14 12:00] VITALS: BP 97/59
--- NOTE | 2019-07-14 12:46 | Nephrology Progress Note ---
Assessment/Plan Problem List: (1) Pancreatitis (2) Hypothermia (3) Hypertension (4) COPD (chronic obstructive pulmonary disease) (5) BPH (benign prostatic hyperplasia) (6) HIV disease (7) Anemia Assessment Acute renal failure, partly dehydration Anemia Hypoalbuminemia High lipase level of 1999, Pancreatitis UTI Hypothermia Toxic metabolic encephalopathy Sepsis Decubitus skin ulcer Hypothyroid Plan Today's labs were reviewed Patient refusing most of his oral medications Will attempt to discontinue what can be changing to intravenous from p.o. magnesium sulfate and potassium as needed 24-hour urine measurement for total protein results noted unremarkable Suggested blood transfusion for low hemoglobin Slow hydrate Add allopurinol 2D echocardiogram results suggestive of ejection fraction of 50% Kidney ultrasound unremarkable Urine studies Anemia work-up noted Monitor renal parameters Antibiotics Avoid nephrotoxic's Per orders Subjective ROS Limited/Unobtainable: No Constitutional: Reports: malaise, weakness Objective Objective Last 24 Hour Vital Signs Date Time Temp Pulse Resp B/P (MAP) Pulse Ox O2 Delivery O2 Flow Rate FiO2 07/14/19 12:00 97.8 76 18 97/59 (72) 98 07/14/19 08:00 98.9 89 17 117/74 (88) 99 07/14/19 04:00 98.2 78 20 103/58 (73) 97 07/14/19 00:00 98.9 81 20 100/72 (81) 95 07/13/19 21:00 Room Air 07/13/19 20:00 97.8 85 20 103/64 (77) 95 07/13/19 16:45 67 70 77 07/13/19 16:00 98.2 88 20 132/84 (100) 97 07/13/19 13:16 119/67 Intake and Output 07/13/19 07/14/19 19:00 07:00 Output Total 600 ml 250 ml Balance -600 ml -250 ml Output Urine Total 600 ml 250 ml # Voids 1 1 # Bowel Movements 1 Current Medications Medications (Trade) Dose Ordered Sig/Deborah Route PRN Reason Start Time Stop Time Status Last Admin Dose Admin Acetaminophen (Tylenol) 650 mg Q4H PRN ORAL fever 07/08/19 19:45 08/07/19 19:44 Acetaminophen/ Hydrocodone Bitart ([place] 5/325) 0.5 tab Q4H PRN ORAL Severe Pain (Pain Scale 7-10) 07/11/19 15:45 4/1/20 15:44 Allopurinol (allopurinoL) 300 mg DAILY ORAL 07/14/19 09:00 08/13/19 08:59 Ascorbic Acid (Vitamin C) 500 mg TWICE A DAY ORAL 07/10/19 18:00 08/09/19 17:59 07/12/19 17:54 Chlorhexidine Gluconate (Leslie-Hex 2%) 1 applic DAILY@2000 TOPIC 07/12/19 20:00 10/10/19 19:59 Dextrose (Dextrose 50%) 25 ml Q30M PRN IV Hypoglycemia 07/13/19 14:00 10/11/19 13:59 Dextrose (Dextrose 50%) 50 ml Q30M PRN IV Hypoglycemia 07/13/19 14:00 10/11/19 13:59 07/14/19 11:33 Dronabinol (Marinol) 5 mg BID ORAL 07/13/19 18:00 10/11/19 17:59 Folic Acid (Folate) 5 mg DAILY ORAL 07/10/19 09:00 08/09/19 08:59 07/12/19 09:21 Gadobutrol (Gadavist) 7.5 mmol NOW PRN IV Radiology Procedure 07/10/19 15:15 07/14/19 15:15 Heparin Sodium/ Sodium Chloride (Heparin 1000 units/500ml Premix) 1,000 unit ONCE PRN IV picc line placement 07/12/19 16:45 07/14/19 16:44 Hydralazine HCl (Apresoline) 25 mg Q4HR PRN ORAL BP over 160 systolic 07/09/19 14:45 10/07/19 14:44 07/11/19 17:19 Insulin Aspart (NovoLOG) BEFORE MEALS AND HS SUBQ 07/13/19 16:30 10/11/19 16:29 Lidocaine HCl (Xylocaine 1% 30ml) 30 ml ONCE PRN INJ picc line placement 07/12/19 16:45 07/14/19 16:44 Multivitamins (Multivitamins) 1 tab DAILY ORAL 07/11/19 09:00 08/10/19 08:59 07/12/19 09:21 Nitroglycerin (Ntg) 0.4 mg Q5M PRN SL Prn Chest Pain 07/08/19 19:45 08/07/19 19:44 Nitroglycerin (Ntg) 1 patch Q24H TDERMAL 07/10/19 13:00 08/09/19 12:59 07/13/19 13:16 Ondansetron HCl (Zofran) 4 mg Q6H PRN IVP Nausea & Vomiting 07/08/19 19:45 08/07/19 19:44 Pantoprazole (Protonix) 40 mg BID ORAL 07/12/19 18:00 08/08/19 20:59 07/12/19 17:55 Polyethylene Glycol (Miralax) 17 gm DAILYPRN PRN ORAL Constipation 07/08/19 19:45 08/07/19 19:44 Potassium Chloride 100 ml @ 100 mls/hr Q1HR IVPB 07/14/19 11:00 07/14/19 12:59 Potassium Chloride (K-Dur) 40 meq TWICE A DAY ORAL 07/13/19 09:00 10/11/19 08:59 Sodium Citrate (Bicitra) 45 ml EVERY 6 HOURS ORAL 07/12/19 18:00 08/08/19 14:44 Tamsulosin HCl (Flomax) 0.4 mg BID ORAL 07/09/19 09:00 08/08/19 08:59 07/12/19 17:55 Temazepam (Restoril) 15 mg HSPRN PRN ORAL Insomnia 07/08/19 19:45 07/15/19 19:44 Trimethoprim/ Sulfamethoxazole (Bactrim Single Strength) 1 tab DAILY ORAL 07/13/19 09:00 07/20/19 08:59 Zinc Sulfate (Zinc Sulfate) 220 mg DAILY ORAL 07/11/19 09:00 07/21/19 08:59 07/12/19 09:21 Laboratory Tests 07/13/19 16:00: Miscellaneous Test [Pending] 07/14/19 07:20: White Blood Count 17.0H, Red Blood Count 3.09L, Hemoglobin 8.2L, Hematocrit 24.7L, Mean Corpuscular Volume 80, Mean Corpuscular Hemoglobin 26.6L, Mean Corpuscular Hemoglobin Concent 33.3, Red Cell Distribution Width 18.0H, Platelet Count 72L, Mean Platelet Volume 10.7H, Neutrophils (%) (Auto) , Lymphocytes (%) (Auto) , Monocytes (%) (Auto) , Eosinophils (%) (Auto) , Basophils (%) (Auto) , Differential Total Cells Counted 100, Neutrophils % ( Manual) 82H, Lymphocytes % (Manual) 9L, Monocytes % (Manual) 4, Eosinophils % ( Manual) 5H, Basophils % (Manual) 0, Band Neutrophils 0, Lymphocytes [Pending], Platelet Estimate DecreasedL, Platelet Morphology Normal, Hypochromasia 2+, Anisocytosis 2+, Spherocytes 1+, Sodium Level 143, Potassium Level 3.3L, Chloride Level 117H, Carbon Dioxide Level 13L, Anion Gap 13, Blood Urea Nitrogen 34H, Creatinine 2.1H, Estimat Glomerular Filtration Rate 38.7, Glucose Level 72L, Uric Acid 11.4H, Calcium Level 8.6, Phosphorus Level 4.4, Magnesium Level 1.8, Total Bilirubin 0.2, Aspartate Amino Transf (AST/SGOT) 26, Alanine Aminotransferase (ALT/SGPT) 9L, Alkaline Phosphatase 89, Total Protein 6.0L, Albumin 1.4L, Globulin 4.6, Albumin/Globulin Ratio 0.3L, Amylase Level 223H, Lipase 1913H, Percent CD3 Cells [Pending], Absolute CD3 Count [Pending], Percent CD4 Cells [Pending], Absolute CD4 Count [Pending], T-Lymphocyte CD4/CD8 Ratio [Pending], Percent CD8 Cells [Pending], Absolute CD8 Count [Pending] Height (Feet): 6 Height (Inches): 0.00 Weight (Pounds): 167 General Appearance: no apparent distress, confused Cardiovascular: normal rate Respiratory/Chest: decreased breath sounds Abdomen: distended Objective No change Zander Razo MD Jul 14, 2019 12:46
[2019-07-14] MEDS: Nitroglycerin Patch 0.4mg TDERMAL SCH (13:00)
--- NOTE | 2019-07-14 14:22 | Infectious Diseases Prog Note ---
Assessment/Plan Assessment/Plan 63yo man admitted with abdominal pain and diarrhea. Afebrile Leukocytosis ( Ch, doubt ID related ) ; increased ? ALOC improved, Hx of Diarrhea/colitis- 03/02 CT: Suspected colitis with the thickening of the wall the colon. Correlate clinically. Thickening of the wall the urinary bladder. Correlate for cystitis. C diff negative x2 stool cx negative stool o/p x1 negative -Negative: E. histolytica ab, Echinococcus ab HIV Screen positive- new diagnosis in February 2019 HIV-1 Abt positive. 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 no evid of biliary - US : Mild intrahepatic biliary ductal dilatation. MRI of brain ( could not be done ) COPD. Hypertension. BPH. History of cocaine abuse in the past. Bedbound. PLAN: pt is refusing meds from time time making HIV Rx difficult on Bactrim DC for PCP PPx 07/12 SP IV Vanco and Cefepime # 4/5 monitor CBC, temp pt must follow up with PMD/HIV specialist once discharged CD4 HIV Genotype Subjective Allergies: Coded Allergies: No Known Allergies (Unverified , 03/02/19) Subjective afebrile wbc increased refusing meds Objective Vital Signs Last 24 Hour Vital Signs Date Time Temp Pulse Resp B/P (MAP) Pulse Ox O2 Delivery O2 Flow Rate FiO2 07/14/19 13:00 97/59 07/14/19 12:00 97.8 76 18 97/59 (72) 98 07/14/19 09:00 Room Air 07/14/19 08:00 98.9 89 17 117/74 (88) 99 07/14/19 04:00 98.2 78 20 103/58 (73) 97 07/14/19 00:00 98.9 81 20 100/72 (81) 95 07/13/19 21:00 Room Air 07/13/19 20:00 97.8 85 20 103/64 (77) 95 07/13/19 16:45 67 70 77 07/13/19 16:00 98.2 88 20 132/84 (100) 97 Height (Feet): 6 Height (Inches): 0.00 Weight (Pounds): 167 Laboratory Tests Test 07/13/19 16:00 07/14/19 07:20 Miscellaneous Test Pending White Blood Count 17.0 K/UL (4.8-10.8) H Red Blood Count 3.09 M/UL (4.70-6.10) L Hemoglobin 8.2 G/DL (14.2-18.0) L Hematocrit 24.7 % (42.0-52.0) L Mean Corpuscular Volume 80 FL (80-99) Mean Corpuscular Hemoglobin 26.6 PG (27.0-31.0) L Mean Corpuscular Hemoglobin Concent 33.3 G/DL (32.0-36.0) Red Cell Distribution Width 18.0 % (11.6-14.8) H Platelet Count 72 K/UL (150-450) L Mean Platelet Volume 10.7 FL (6.5-10.1) H Neutrophils (%) (Auto) % (45.0-75.0) Lymphocytes (%) (Auto) % (20.0-45.0) Monocytes (%) (Auto) % (1.0-10.0) Eosinophils (%) (Auto) % (0.0-3.0) Basophils (%) (Auto) % (0.0-2.0) Differential Total Cells Counted 100 Neutrophils % (Manual) 82 % (45-75) H Lymphocytes % (Manual) 9 % (20-45) L Monocytes % (Manual) 4 % (1-10) Eosinophils % (Manual) 5 % (0-3) H Basophils % (Manual) 0 % (0-2) Band Neutrophils 0 % (0-8) Lymphocytes Pending Platelet Estimate Decreased L Platelet Morphology Normal Hypochromasia 2+ Anisocytosis 2+ Spherocytes 1+ Sodium Level 143 MMOL/L (136-145) Potassium Level 3.3 MMOL/L (3.5-5.1) L Chloride Level 117 MMOL/L (98-107) H Carbon Dioxide Level 13 MMOL/L (21-32) L Anion Gap 13 mmol/L (5-15) Blood Urea Nitrogen 34 mg/dL (7-18) H Creatinine 2.1 MG/DL (0.55-1.30) H Estimat Glomerular Filtration Rate 38.7 mL/min (>60) Glucose Level 72 MG/DL (74-106) L Uric Acid 11.4 MG/DL (2.6-7.2) H Calcium Level 8.6 MG/DL (8.5-10.1) Phosphorus Level 4.4 MG/DL (2.5-4.9) Magnesium Level 1.8 MG/DL (1.8-2.4) Total Bilirubin 0.2 MG/DL (0.2-1.0) Aspartate Amino Transf (AST/SGOT) 26 U/L (15-37) Alanine Aminotransferase (ALT/SGPT) 9 U/L (12-78) L Alkaline Phosphatase 89 U/L (46-116) Total Protein 6.0 G/DL (6.4-8.2) L Albumin 1.4 G/DL (3.4-5.0) L Globulin 4.6 g/dL Albumin/Globulin Ratio 0.3 (1.0-2.7) L Amylase Level 223 U/L (25-115) H Lipase 1913 U/L (73-393) H Percent CD3 Cells Pending Absolute CD3 Count Pending Percent CD4 Cells Pending Absolute CD4 Count Pending T-Lymphocyte CD4/CD8 Ratio Pending Percent CD8 Cells Pending Absolute CD8 Count Pending Current Medications Medications (Trade) Dose Ordered Sig/Deborah Route PRN Reason Start Time Stop Time Status Last Admin Dose Admin Acetaminophen (Tylenol) 650 mg Q4H PRN ORAL fever 07/08/19 19:45 08/07/19 19:44 Acetaminophen/ Hydrocodone Bitart ([place] 5/325) 0.5 tab Q4H PRN ORAL Severe Pain (Pain Scale 7-10) 07/11/19 15:45 07/18/19 15:44 Allopurinol (allopurinoL) 300 mg DAILY ORAL 07/14/19 09:00 08/13/19 08:59 Ascorbic Acid (Vitamin C) 500 mg TWICE A DAY ORAL 07/10/19 18:00 08/09/19 17:59 07/12/19 17:54 Chlorhexidine Gluconate (Leslie-Hex 2%) 1 applic DAILY@1999 TOPIC 07/12/19 20:00 10/10/19 19:59 Dextrose (Dextrose 50%) 25 ml Q30M PRN IV Hypoglycemia 07/13/19 14:00 10/11/19 13:59 Dextrose (Dextrose 50%) 50 ml Q30M PRN IV Hypoglycemia 07/13/19 14:00 10/11/19 13:59 07/14/19 11:33 Dronabinol (Marinol) 5 mg BID ORAL 07/13/19 18:00 10/11/19 17:59 Gadobutrol (Gadavist) 7.5 mmol NOW PRN IV Radiology Procedure 07/10/19 15:15 07/14/19 15:15 Heparin Sodium/ Sodium Chloride (Heparin 1000 units/500ml Premix) 1,000 unit ONCE PRN IV picc line placement 07/12/19 16:45 07/14/19 16:44 Hydralazine HCl (Apresoline) 25 mg Q4HR PRN ORAL BP over 160 systolic 07/09/19 14:45 10/07/19 14:44 07/11/19 17:19 Insulin Aspart (NovoLOG) BEFORE MEALS AND HS SUBQ 07/13/19 16:30 10/11/19 16:29 Lidocaine HCl (Xylocaine 1% 30ml) 30 ml ONCE PRN INJ picc line placement 07/12/19 16:45 07/14/19 16:44 Nitroglycerin (Ntg) 0.4 mg Q5M PRN SL Prn Chest Pain 07/08/19 19:45 08/07/19 19:44 Nitroglycerin (Ntg) 1 patch Q24H TDERMAL 07/10/19 13:00 08/09/19 12:59 07/13/19 13:16 Ondansetron HCl (Zofran) 4 mg Q6H PRN IVP Nausea & Vomiting 07/08/19 19:45 08/07/19 19:44 Pantoprazole (Protonix) 40 mg BID ORAL 07/12/19 18:00 08/08/19 20:59 07/12/19 17:55 Polyethylene Glycol (Miralax) 17 gm DAILYPRN PRN ORAL Constipation 07/08/19 19:45 08/07/19 19:44 Sodium Bicarbonate 100 ml/Dextrose 1,100 ml @ 75 mls/hr [id number] IV 07/14/19 13:30 08/13/19 13:29 Tamsulosin HCl (Flomax) 0.4 mg BID ORAL 07/09/19 09:00 08/08/19 08:59 07/12/19 17:55 Temazepam (Restoril) 15 mg HSPRN PRN ORAL Insomnia 07/08/19 19:45 07/15/19 19:44 Trimethoprim/ Sulfamethoxazole (Bactrim Single Strength) 1 tab DAILY ORAL 07/13/19 09:00 07/20/19 08:59 Zinc Sulfate (Zinc Sulfate) 220 mg DAILY ORAL 07/11/19 09:00 07/21/19 08:59 07/12/19 09:21 Christine Diaz M.D. Jul 14, 2019 14:22
[2019-07-14] MEDS: Sodium Bicarbonate 100 ML in D5W 1000ml 1,000 ML IV SCH (15:53)
[2019-07-14 16:00] VITALS: BP 111/63
--- NOTE | 2019-07-14 17:34 | Pulmonology Progress Note ---
Assessment/Plan Problems: (1) Sepsis (2) Altered level of consciousness (3) COPD (chronic obstructive pulmonary disease) (4) Pancreatitis (5) Decubitus skin ulcer (6) Hypertension (7) BPH (benign prostatic hyperplasia) (8) HIV disease Assessment/Plan doing better mental status improved wound care iv abx adams culture, VRE positive, BC negative f/u amylase lipase swallow study \ IV fluids Renal, and ID evaluation appreciated dvt prophylaxis. Subjective ROS Limited/Unobtainable: No Constitutional: Reports: no symptoms HEENT: Repors: no symptoms Respiratory: Reports: no symptoms Allergies: Coded Allergies: No Known Allergies (Unverified , 03/02/19) Objective Last 24 Hour Vital Signs Date Time Temp Pulse Resp B/P (MAP) Pulse Ox O2 Delivery O2 Flow Rate FiO2 07/14/19 13:00 97/59 07/14/19 12:00 97.8 76 18 97/59 (72) 98 07/14/19 09:00 Room Air 07/14/19 08:00 98.9 89 17 117/74 (88) 99 07/14/19 04:00 98.2 78 20 103/58 (73) 97 07/14/19 00:00 98.9 81 20 100/72 (81) 95 07/13/19 21:00 Room Air 07/13/19 20:00 97.8 85 20 103/64 (77) 95 Intake and Output 07/13/19 07/14/19 19:00 07:00 Output Total 600 ml 250 ml Balance -600 ml -250 ml Output Urine Total 600 ml 250 ml # Voids 1 1 # Bowel Movements 1 Objective General Appearance: cachectic HEENT: normocephalic Respiratory/Chest: chest wall non-tender, lungs clear Cardiovascular: normal rate, regular rhythm Abdomen: normal bowel sounds, no organomegaly Extremities: no cyanosis Bed bound Laboratory Tests 07/14/19 07:20: White Blood Count 17.0H, Red Blood Count 3.09L, Hemoglobin 8.2L, Hematocrit 24.7L, Mean Corpuscular Volume 80, Mean Corpuscular Hemoglobin 26.6L, Mean Corpuscular Hemoglobin Concent 33.3, Red Cell Distribution Width 18.0H, Platelet Count 72L, Mean Platelet Volume 10.7H, Neutrophils (%) (Auto) , Lymphocytes (%) (Auto) , Monocytes (%) (Auto) , Eosinophils (%) (Auto) , Basophils (%) (Auto) , Differential Total Cells Counted 100, Neutrophils % ( Manual) 82H, Lymphocytes % (Manual) 9L, Monocytes % (Manual) 4, Eosinophils % ( Manual) 5H, Basophils % (Manual) 0, Band Neutrophils 0, Lymphocytes [Pending], Platelet Estimate DecreasedL, Platelet Morphology Normal, Hypochromasia 2+, Anisocytosis 2+, Spherocytes 1+, Sodium Level 143, Potassium Level 3.3L, Chloride Level 117H, Carbon Dioxide Level 13L, Anion Gap 13, Blood Urea Nitrogen 34H, Creatinine 2.1H, Estimat Glomerular Filtration Rate 38.7, Glucose Level 72L, Uric Acid 11.4H, Calcium Level 8.6, Phosphorus Level 4.4, Magnesium Level 1.8, Total Bilirubin 0.2, Aspartate Amino Transf (AST/SGOT) 26, Alanine Aminotransferase (ALT/SGPT) 9L, Alkaline Phosphatase 89, Total Protein 6.0L, Albumin 1.4L, Globulin 4.6, Albumin/Globulin Ratio 0.3L, Amylase Level 223H, Lipase 1913H, Percent CD3 Cells [Pending], Absolute CD3 Count [Pending], Percent CD4 Cells [Pending], Absolute CD4 Count [Pending], T-Lymphocyte CD4/CD8 Ratio [Pending], Percent CD8 Cells [Pending], Absolute CD8 Count [Pending] Current Medications Medications (Trade) Dose Ordered Sig/Deborah Route PRN Reason Start Time Stop Time Status Last Admin Dose Admin Acetaminophen (Tylenol) 650 mg Q4H PRN ORAL fever 07/08/19 19:45 08/07/19 19:44 Acetaminophen/ Hydrocodone Bitart ([place] 5/325) 0.5 tab Q4H PRN ORAL Severe Pain (Pain Scale 7-10) 07/11/19 15:45 07/18/19 15:44 Allopurinol (allopurinoL) 300 mg DAILY ORAL 07/14/19 09:00 08/13/19 08:59 Ascorbic Acid (Vitamin C) 500 mg TWICE A DAY ORAL 07/10/19 18:00 08/09/19 17:59 07/12/19 17:54 Chlorhexidine Gluconate (Leslie-Hex 2%) 1 applic DAILY@1999 TOPIC 07/12/19 20:00 10/10/19 19:59 Dextrose (Dextrose 50%) 25 ml Q30M PRN IV Hypoglycemia 07/13/19 14:00 10/11/19 13:59 Dextrose (Dextrose 50%) 50 ml Q30M PRN IV Hypoglycemia 07/13/19 14:00 10/11/19 13:59 07/14/19 11:33 Dronabinol (Marinol) 5 mg BID ORAL 07/13/19 18:00 10/11/19 17:59 Hydralazine HCl (Apresoline) 25 mg Q4HR PRN ORAL BP over 160 systolic 07/09/19 14:45 10/07/19 14:44 07/11/19 17:19 Insulin Aspart (NovoLOG) BEFORE MEALS AND HS SUBQ 07/13/19 16:30 10/11/19 16:29 Nitroglycerin (Ntg) 0.4 mg Q5M PRN SL Prn Chest Pain 07/08/19 19:45 08/07/19 19:44 Nitroglycerin (Ntg) 1 patch Q24H TDERMAL 07/10/19 13:00 08/09/19 12:59 07/13/19 13:16 Ondansetron HCl (Zofran) 4 mg Q6H PRN IVP Nausea & Vomiting 07/08/19 19:45 08/07/19 19:44 Pantoprazole (Protonix) 40 mg BID ORAL 07/12/19 18:00 08/08/19 20:59 07/12/19 17:55 Polyethylene Glycol (Miralax) 17 gm DAILYPRN PRN ORAL Constipation 07/08/19 19:45 08/07/19 19:44 Sodium Bicarbonate 100 ml/Dextrose 1,100 ml @ 75 mls/hr [id number] IV 07/14/19 13:30 08/13/19 13:29 07/14/19 15:53 Tamsulosin HCl (Flomax) 0.4 mg BID ORAL 07/09/19 09:00 08/08/19 08:59 07/12/19 17:55 Temazepam (Restoril) 15 mg HSPRN PRN ORAL Insomnia 07/08/19 19:45 07/15/19 19:44 Trimethoprim/ Sulfamethoxazole (Bactrim Single Strength) 1 tab DAILY ORAL 07/13/19 09:00 07/20/19 08:59 Zinc Sulfate (Zinc Sulfate) 220 mg DAILY ORAL 07/11/19 09:00 07/21/19 08:59 07/12/19 09:21 Rico Chavarria MD Jul 14, 2019 17:34
[2019-07-14] MEDS ORDERED: D5 1/2NS 1000ml IV ONE (17:49)
[2019-07-14] MEDS ORDERED: Tubing IV Secondary IV ONE (17:49)
--- NOTE | 2019-07-14 18:37 | General Progress Note ---
Assessment/Plan Assessment/Plan: Assessment/Plan: 1. History of HIV. 2.thrombocytopenia 3. Anemia. 4. Sepsis. 5. UTIs with MRSA. 6. Hypertension. 7. COPD. 8. BPH. 9. Sacral decubital ulcerations, stage III. 10. Malnutrition / anorexia 11. pancreatitis 12. Dilated IHD Recommendations Follow H&H fu stool ob fu cbc hold GI procedures for now improving amylase and lipase asymptomatic us reviewed repeat labs in am add marinol off heparin given thrombocytopenia Subjective Allergies: Coded Allergies: No Known Allergies (Unverified , 03/02/19) Subjective weak minimally interactive on modified PO diet Objective Last 24 Hour Vital Signs Date Time Temp Pulse Resp B/P (MAP) Pulse Ox O2 Delivery O2 Flow Rate FiO2 07/14/19 16:00 97.7 92 19 111/63 (79) 98 07/14/19 13:00 97/59 07/14/19 12:00 97.8 76 18 97/59 (72) 98 07/14/19 09:00 Room Air 07/14/19 08:00 98.9 89 17 117/74 (88) 99 07/14/19 04:00 98.2 78 20 103/58 (73) 97 07/14/19 00:00 98.9 81 20 100/72 (81) 95 07/13/19 21:00 Room Air 07/13/19 20:00 97.8 85 20 103/64 (77) 95 Intake and Output 07/13/19 07/14/19 19:00 07:00 Output Total 600 ml 250 ml Balance -600 ml -250 ml Output Urine Total 600 ml 250 ml # Voids 1 1 # Bowel Movements 1 Laboratory Tests 07/14/19 07:20: White Blood Count 17.0H, Red Blood Count 3.09L, Hemoglobin 8.2L, Hematocrit 24.7L, Mean Corpuscular Volume 80, Mean Corpuscular Hemoglobin 26.6L, Mean Corpuscular Hemoglobin Concent 33.3, Red Cell Distribution Width 18.0H, Platelet Count 72L, Mean Platelet Volume 10.7H, Neutrophils (%) (Auto) , Lymphocytes (%) (Auto) , Monocytes (%) (Auto) , Eosinophils (%) (Auto) , Basophils (%) (Auto) , Differential Total Cells Counted 100, Neutrophils % ( Manual) 82H, Lymphocytes % (Manual) 9L, Monocytes % (Manual) 4, Eosinophils % ( Manual) 5H, Basophils % (Manual) 0, Band Neutrophils 0, Lymphocytes [Pending], Platelet Estimate DecreasedL, Platelet Morphology Normal, Hypochromasia 2+, Anisocytosis 2+, Spherocytes 1+, Sodium Level 143, Potassium Level 3.3L, Chloride Level 117H, Carbon Dioxide Level 13L, Anion Gap 13, Blood Urea Nitrogen 34H, Creatinine 2.1H, Estimat Glomerular Filtration Rate 38.7, Glucose Level 72L, Uric Acid 11.4H, Calcium Level 8.6, Phosphorus Level 4.4, Magnesium Level 1.8, Total Bilirubin 0.2, Aspartate Amino Transf (AST/SGOT) 26, Alanine Aminotransferase (ALT/SGPT) 9L, Alkaline Phosphatase 89, Total Protein 6.0L, Albumin 1.4L, Globulin 4.6, Albumin/Globulin Ratio 0.3L, Amylase Level 223H, Lipase 1913H, Percent CD3 Cells [Pending], Absolute CD3 Count [Pending], Percent CD4 Cells [Pending], Absolute CD4 Count [Pending], T-Lymphocyte CD4/CD8 Ratio [Pending], Percent CD8 Cells [Pending], Absolute CD8 Count [Pending] Height (Feet): 6 Height (Inches): 0.00 Weight (Pounds): 167 Objective Debilitated AA man NCAT supple CTA RR abd soft no edema Estephanie Watts MD Jul 14, 2019 18:37
[2019-07-14 20:00] VITALS: BP_SYST 107; BP_SYST 108; BP_DIAS 67; BP_DIAS 74
[2019-07-14] MEDS: Dyna-Hex 2% Top Sol 2oz TOPIC SCH (22:06)
[2019-07-15] VITALS (7 sets, daily range): BP systolic 100–129; BP diastolic 60–76
[2019-07-15] MEDS: Sodium Bicarbonate 100 ML in D5W 1000ml 1,000 ML IV SCH ×2 (06:19→21:15)
[2019-07-15] MEDS: NovoLOG Insulin Flexpen SUBQ SCH ×4 (06:30→21:33)
[2019-07-15 08:22] LABS: HEMATOCRIT 24.5 % (42.0-52.0); HEMOGLOBIN 8.2 G/DL (14.2-18.0); MEAN CORPUSCULAR VOLUME 80 FL (80-99); PLATELET COUNT 67 K/UL (150-450); RED BLOOD COUNT 3.07 M/UL (4.70-6.10); RED CELL DISTRIBUTION WIDTH 18.1 % (11.6-14.8); WHITE BLOOD COUNT 20.4 K/UL (4.8-10.8)
[2019-07-15 08:36] LABS: ALANINE AMINOTRANSFERASE 9 U/L (12-78); ALBUMIN 1.4 G/DL (3.4-5.0); ALBUMIN/GLOBULIN RATIO 0.3 (1.0-2.7); ALKALINE PHOSPHATASE 94 U/L (46-116); ANION GAP 14 mmol/L (5-15); ASPARTATE AMINO TRANSFERASE 25 U/L (15-37); BILIRUBIN,TOTAL 0.3 MG/DL (0.2-1.0); BLOOD UREA NITROGEN 32 mg/dL (7-18); CALCIUM 8.7 MG/DL (8.5-10.1); CARBON DIOXIDE 12 MMOL/L (21-32); CHLORIDE 117 MMOL/L (98-107); PHOSPHORUS 4.3 MG/DL (2.5-4.9); POTASSIUM 3.3 MMOL/L (3.5-5.1); SODIUM 143 MMOL/L (136-145)
[2019-07-15] MEDS: Tamsulosin 0.4mg cap ORAL SCH ×2 (08:44→17:16)
[2019-07-15] MEDS: Dronabinol 2.5mg Cap ORAL SCH ×2 (08:44→17:16)
[2019-07-15] MEDS: Bactrim SS Tab ORAL SCH (08:44)
[2019-07-15] MEDS: Ascorbic Acid 500mg tab ORAL SCH ×2 (08:45→17:17)
[2019-07-15] MEDS: Zinc Sulfate 220mg cap ORAL SCH (08:45)
--- NOTE | 2019-07-15 10:05 | Nephrology Progress Note ---
Assessment/Plan Problem List: (1) Pancreatitis (2) Hypothermia (3) Hypertension (4) COPD (chronic obstructive pulmonary disease) (5) BPH (benign prostatic hyperplasia) (6) HIV disease (7) Anemia Assessment Acute renal failure, partly dehydration Anemia Hypoalbuminemia High lipase level of 1999, Pancreatitis UTI Hypothermia Toxic metabolic encephalopathy Sepsis Decubitus skin ulcer Hypothyroid Plan Today's labs were reviewed Patient refusing most of his oral medications Will attempt to discontinue what can be changing to intravenous from p.o. magnesium sulfate and potassium as needed 24-hour urine measurement for total protein results noted unremarkable Suggested blood transfusion for low hemoglobin Slow hydrate Add allopurinol 2D echocardiogram results suggestive of ejection fraction of 50% Kidney ultrasound unremarkable Urine studies Anemia work-up noted Monitor renal parameters Antibiotics Avoid nephrotoxic's Per orders Subjective ROS Limited/Unobtainable: No Constitutional: Reports: malaise, weakness Objective Objective Last 24 Hour Vital Signs Date Time Temp Pulse Resp B/P (MAP) Pulse Ox O2 Delivery O2 Flow Rate FiO2 07/15/19 08:00 97.9 92 19 124/76 (92) 99 07/15/19 03:50 97.9 88 18 100/75 (83) 95 07/15/19 00:00 97.3 90 17 108/67 (81) 96 07/14/19 21:00 Room Air 07/14/19 20:00 97.0 93 21 107/74 (85) 94 07/14/19 16:00 97.7 92 19 111/63 (79) 98 07/14/19 13:00 97/59 07/14/19 12:00 97.8 76 18 97/59 (72) 98 Intake and Output 07/14/19 07/15/19 19:00 07:00 Output Total 300 ml 350 ml Balance -300 ml -350 ml Output Urine Total 300 ml 350 ml # Voids 1 1 # Bowel Movements 1 Laboratory Tests 07/15/19 08:01: White Blood Count 20.4H, Red Blood Count 3.07L, Hemoglobin 8.2L, Hematocrit 24.5L, Mean Corpuscular Volume 80, Mean Corpuscular Hemoglobin 26.6L, Mean Corpuscular Hemoglobin Concent 33.4, Red Cell Distribution Width 18.1H, Platelet Count 67L, Mean Platelet Volume 9.7, Neutrophils (%) (Auto) , Lymphocytes (%) (Auto) , Monocytes (%) (Auto) , Eosinophils (%) (Auto) , Basophils (%) (Auto) , Neutrophils % (Manual) [Pending], Lymphocytes % (Manual) [Pending], Platelet Estimate [Pending], Platelet Morphology [Pending], Sodium Level 143, Potassium Level 3.3L, Chloride Level 117H, Carbon Dioxide Level 12L, Anion Gap 14, Blood Urea Nitrogen 32H, Creatinine 2.0H, Estimat Glomerular Filtration Rate 40.8, Glucose Level 93, Uric Acid 11.6H, Calcium Level 8.7, Phosphorus Level 4.3, Magnesium Level 1.8, Total Bilirubin 0.3, Aspartate Amino Transf (AST/SGOT) 25, Alanine Aminotransferase (ALT/SGPT) 9L, Alkaline Phosphatase 94, C-Reactive Protein, Quantitative 15.8H, Total Protein 6.2L, Albumin 1.4L, Globulin 4.8, Albumin/Globulin Ratio 0.3L, Folate 5.7L Height (Feet): 6 Height (Inches): 0.00 Weight (Pounds): 167 General Appearance: no apparent distress Cardiovascular: tachycardia Respiratory/Chest: decreased breath sounds Abdomen: distended Objective No change Zander Razo MD Jul 15, 2019 10:05
--- NOTE | 2019-07-15 11:32 | General Progress Note ---
Assessment/Plan Assessment/Plan: (1) HIV (2) Sacral Decubitus ulcer (3) Altered mental status Patient will be continued on [place] as needed. D/w Dr. Mendoza and he concurred. Subjective Date patient seen: Jul 15, 2019 Time patient seen: 11:00 - am ROS Limited/Unobtainable: Yes Allergies: Coded Allergies: No Known Allergies (Unverified , 03/02/19) Subjective Still in bed and no signs of pain or distress. Has not requested the [place] in the last 24hrs. Objective Last 24 Hour Vital Signs Date Time Temp Pulse Resp B/P (MAP) Pulse Ox O2 Delivery O2 Flow Rate FiO2 07/15/19 09:00 Room Air 07/15/19 08:00 97.9 92 19 124/76 (92) 99 07/15/19 03:50 97.9 88 18 100/75 (83) 95 07/15/19 00:00 97.3 90 17 108/67 (81) 96 07/14/19 21:00 Room Air 07/14/19 20:00 97.0 93 21 107/74 (85) 94 07/14/19 16:00 97.7 92 19 111/63 (79) 98 07/14/19 13:00 97/59 07/14/19 12:00 97.8 76 18 97/59 (72) 98 Intake and Output 07/14/19 07/15/19 19:00 07:00 Output Total 300 ml 350 ml Balance -300 ml -350 ml Output Urine Total 300 ml 350 ml # Voids 1 1 # Bowel Movements 1 Laboratory Tests 07/15/19 08:01: White Blood Count 20.4H, Red Blood Count 3.07L, Hemoglobin 8.2L, Hematocrit 24.5L, Mean Corpuscular Volume 80, Mean Corpuscular Hemoglobin 26.6L, Mean Corpuscular Hemoglobin Concent 33.4, Red Cell Distribution Width 18.1H, Platelet Count 67L, Mean Platelet Volume 9.7, Neutrophils (%) (Auto) , Lymphocytes (%) (Auto) , Monocytes (%) (Auto) , Eosinophils (%) (Auto) , Basophils (%) (Auto) , Differential Total Cells Counted 100, Neutrophils % ( Manual) 85H, Lymphocytes % (Manual) 7L, Monocytes % (Manual) 3, Eosinophils % ( Manual) 5H, Basophils % (Manual) 0, Band Neutrophils 0, Nucleated Red Blood Cells 1, Platelet Estimate DecreasedL, Platelet Morphology Normal, Hypochromasia 2+, Anisocytosis 2+, Spherocytes 1+, Sodium Level 143, Potassium Level 3.3L, Chloride Level 117H, Carbon Dioxide Level 12L, Anion Gap 14, Blood Urea Nitrogen 32H, Creatinine 2.0H, Estimat Glomerular Filtration Rate 40.8, Glucose Level 93, Uric Acid 11.6H, Calcium Level 8.7, Phosphorus Level 4.3, Magnesium Level 1.8, Total Bilirubin 0.3, Aspartate Amino Transf (AST/SGOT) 25, Alanine Aminotransferase (ALT/SGPT) 9L, Alkaline Phosphatase 94, C-Reactive Protein, Quantitative 15.8H, Total Protein 6.2L, Albumin 1.4L, Globulin 4.8, Albumin/Globulin Ratio 0.3L, Folate 5.7L Height (Feet): 6 Height (Inches): 0.00 Weight (Pounds): 167 Objective General Appearance: no apparent distress EENT: PERRL/EOMI Neck: non-tender, normal alignment Cardiovascular: normal rate, regular rhythm Respiratory/Chest: decreased breath sounds Abdomen: non tender, soft Edema: mild edema Neurologic: responsive Skin: warm/dry Rachid Hennessy Jul 15, 2019 11:32
[2019-07-15] MEDS: Nitroglycerin Patch 0.4mg TDERMAL SCH (13:15)
[2019-07-15] MEDS: Piperacillin/Tazobactam 3.375 GM in NS 110 ML IVPB SCH ×2 (15:53→21:33)
[2019-07-15 16:32] LABS: APPEARANCE,URINE SLIGHTLY CLOUDY; BILIRUBIN, URINE NEGATIVE (NEGATIVE); COLOR,URINE PALE YELLOW; GLUCOSE, URINE (UA) NEGATIVE (NEGATIVE); KETONES,URINE NEGATIVE (NEGATIVE); LEUKOCYTE ESTERASE ,URINE 3+ (NEGATIVE); NITRITE,URINE NEGATIVE (NEGATIVE); PH,URINE 6 (4.5-8.0); PROTEIN,URINE 3+ (NEGATIVE); UROBILINOGEN,URINE NORMAL MG/DL (0.0-1.0)
--- NOTE | 2019-07-15 17:01 | Pulmonology Progress Note ---
Assessment/Plan Problems: (1) Sepsis (2) Altered level of consciousness (3) COPD (chronic obstructive pulmonary disease) (4) Pancreatitis (5) Decubitus skin ulcer (6) Hypertension (7) BPH (benign prostatic hyperplasia) (8) HIV disease Assessment/Plan wbc risingdoing better mental status improved wound care iv abx adams culture, VRE positive, BC negative f/u amylase lipase swallow study pt refusing meds at times dvt prophylaxis. Subjective ROS Limited/Unobtainable: No Constitutional: Reports: no symptoms HEENT: Repors: no symptoms Respiratory: Reports: no symptoms Allergies: Coded Allergies: No Known Allergies (Unverified , 03/02/19) Objective Last 24 Hour Vital Signs Date Time Temp Pulse Resp B/P (MAP) Pulse Ox O2 Delivery O2 Flow Rate FiO2 07/15/19 16:00 98.5 89 18 112/71 (85) 96 07/15/19 13:15 101/65 07/15/19 12:00 98.9 93 20 101/65 (77) 95 07/15/19 09:00 Room Air 07/15/19 08:00 97.9 92 19 124/76 (92) 99 07/15/19 03:50 97.9 88 18 100/75 (83) 95 07/15/19 00:00 97.3 90 17 108/67 (81) 96 07/14/19 21:00 Room Air 07/14/19 20:00 97.0 93 21 107/74 (85) 94 Intake and Output 07/14/19 07/15/19 19:00 07:00 Output Total 300 ml 350 ml Balance -300 ml -350 ml Output Urine Total 300 ml 350 ml # Voids 1 1 # Bowel Movements 1 Objective General Appearance: cachectic HEENT: normocephalic Respiratory/Chest: chest wall non-tender, lungs clear Cardiovascular: normal rate, regular rhythm Abdomen: normal bowel sounds, no organomegaly Extremities: no cyanosis Bed bound Laboratory Tests 07/15/19 08:01: White Blood Count 20.4H, Red Blood Count 3.07L, Hemoglobin 8.2L, Hematocrit 24.5L, Mean Corpuscular Volume 80, Mean Corpuscular Hemoglobin 26.6L, Mean Corpuscular Hemoglobin Concent 33.4, Red Cell Distribution Width 18.1H, Platelet Count 67L, Mean Platelet Volume 9.7, Neutrophils (%) (Auto) , Lymphocytes (%) (Auto) , Monocytes (%) (Auto) , Eosinophils (%) (Auto) , Basophils (%) (Auto) , Differential Total Cells Counted 100, Neutrophils % ( Manual) 85H, Lymphocytes % (Manual) 7L, Monocytes % (Manual) 3, Eosinophils % ( Manual) 5H, Basophils % (Manual) 0, Band Neutrophils 0, Nucleated Red Blood Cells 1, Platelet Estimate DecreasedL, Platelet Morphology Normal, Hypochromasia 2+, Anisocytosis 2+, Spherocytes 1+, Sodium Level 143, Potassium Level 3.3L, Chloride Level 117H, Carbon Dioxide Level 12L, Anion Gap 14, Blood Urea Nitrogen 32H, Creatinine 2.0H, Estimat Glomerular Filtration Rate 40.8, Glucose Level 93, Uric Acid 11.6H, Calcium Level 8.7, Phosphorus Level 4.3, Magnesium Level 1.8, Total Bilirubin 0.3, Aspartate Amino Transf (AST/SGOT) 25, Alanine Aminotransferase (ALT/SGPT) 9L, Alkaline Phosphatase 94, C-Reactive Protein, Quantitative 15.8H, Total Protein 6.2L, Albumin 1.4L, Globulin 4.8, Albumin/Globulin Ratio 0.3L, Folate 5.7L 07/15/19 14:40: Urine Color Pale yellow, Urine Appearance Slightly cloudy, Urine pH 6, Urine Specific [place] 1.015, Urine Protein 3+H, Urine Glucose (UA) Negative, Urine Ketones Negative, Urine Blood 5+H, Urine Nitrite Negative, Urine Bilirubin Negative, Urine Urobilinogen Normal, Urine Leukocyte Esterase 3+H, Urine RBC 10- 15H, Urine WBC TntcH, Urine Squamous Epithelial Cells Occasional, Urine Bacteria ModerateH, Urine Yeast ManyH Current Medications Medications (Trade) Dose Ordered Sig/Deborah Route PRN Reason Start Time Stop Time Status Last Admin Dose Admin Acetaminophen (Tylenol) 650 mg Q4H PRN ORAL fever 07/08/19 19:45 08/07/19 19:44 Acetaminophen/ Hydrocodone Bitart ([place] 5/325) 0.5 tab Q4H PRN ORAL Severe Pain (Pain Scale 7-10) 07/11/19 15:45 07/18/19 15:44 Allopurinol (allopurinoL) 300 mg DAILY ORAL 07/14/19 09:00 08/13/19 08:59 Ascorbic Acid (Vitamin C) 500 mg TWICE A DAY ORAL 07/10/19 18:00 08/09/19 17:59 07/12/19 17:54 Chlorhexidine Gluconate ([place]-Hex 2%) 1 applic DAILY@2000 TOPIC 07/12/19 20:00 10/10/19 19:59 07/14/19 22:06 Dextrose (Dextrose 50%) 25 ml Q30M PRN IV Hypoglycemia 07/13/19 14:00 10/11/19 13:59 07/15/19 06:21 Dextrose (Dextrose 50%) 50 ml Q30M PRN IV Hypoglycemia 07/13/19 14:00 10/11/19 13:59 07/14/19 11:33 Dronabinol (Marinol) 5 mg BID ORAL 07/13/19 18:00 10/11/19 17:59 Hydralazine HCl (Apresoline) 25 mg Q4HR PRN ORAL BP over 160 systolic 07/09/19 14:45 10/07/19 14:44 07/11/19 17:19 Insulin Aspart (NovoLOG) BEFORE MEALS AND HS SUBQ 07/13/19 16:30 10/11/19 16:29 Nitroglycerin (Ntg) 0.4 mg Q5M PRN SL Prn Chest Pain 07/08/19 19:45 08/07/19 19:44 Nitroglycerin (Ntg) 1 patch Q24H TDERMAL 07/10/19 13:00 08/09/19 12:59 07/15/19 13:15 Ondansetron HCl (Zofran) 4 mg Q6H PRN IVP Nausea & Vomiting 07/08/19 19:45 08/07/19 19:44 Pantoprazole (Protonix) 40 mg BID ORAL 07/12/19 18:00 08/08/19 20:59 07/12/19 17:55 Piperacillin Sod/ Tazobactam Sod 3.375 gm/Sodium Chloride 110 ml @ 27.5 mls/hr EVERY 8 HOURS IVPB 07/15/19 14:00 07/20/19 13:59 07/15/19 15:53 Polyethylene Glycol (Miralax) 17 gm DAILYPRN PRN ORAL Constipation 07/08/19 19:45 08/07/19 19:44 Sodium Bicarbonate 100 ml/Dextrose 1,100 ml @ 75 mls/hr [id number] IV 07/14/19 13:30 08/13/19 13:29 07/15/19 06:19 Tamsulosin HCl (Flomax) 0.4 mg BID ORAL 07/09/19 09:00 08/08/19 08:59 07/12/19 17:55 Temazepam (Restoril) 15 mg HSPRN PRN ORAL Insomnia 07/08/19 19:45 07/15/19 19:44 Trimethoprim/ Sulfamethoxazole (Bactrim Single Strength) 1 tab DAILY ORAL 07/13/19 09:00 07/20/19 08:59 Zinc Sulfate (Zinc Sulfate) 220 mg DAILY ORAL 07/11/19 09:00 07/21/19 08:59 07/12/19 09:21 Rico Chavarria MD Jul 15, 2019 17:01
[2019-07-15] MEDS: Dyna-Hex 2% Top Sol 2oz TOPIC SCH (19:33)
[2019-07-16 04:00] VITALS: BP 125/59
[2019-07-16] MEDS: Piperacillin/Tazobactam 3.375 GM in NS 110 ML IVPB SCH ×3 (04:59→22:14)
[2019-07-16] MEDS: NovoLOG Insulin Flexpen SUBQ SCH ×4 (05:40→21:00)
[2019-07-16 06:44] LABS: HEMATOCRIT 20.9 % (42.0-52.0); MEAN CORPUSCULAR VOLUME 79 FL (80-99); PLATELET COUNT 72 K/UL (150-450); RED BLOOD COUNT 2.66 M/UL (4.70-6.10); RED CELL DISTRIBUTION WIDTH 17.4 % (11.6-14.8); WHITE BLOOD COUNT 13.9 K/UL (4.8-10.8)
[2019-07-16 07:00] LABS: ALANINE AMINOTRANSFERASE 6 U/L (12-78); ALBUMIN 1.3 G/DL (3.4-5.0); ALBUMIN/GLOBULIN RATIO 0.3 (1.0-2.7); ALKALINE PHOSPHATASE 96 U/L (46-116); AMYLASE 129 U/L (25-115); ANION GAP 11 mmol/L (5-15); ASPARTATE AMINO TRANSFERASE 20 U/L (15-37); BILIRUBIN,TOTAL 0.5 MG/DL (0.2-1.0); BLOOD UREA NITROGEN 30 mg/dL (7-18); CALCIUM 8.3 MG/DL (8.5-10.1); CARBON DIOXIDE 17 MMOL/L (21-32); CHLORIDE 115 MMOL/L (98-107); POTASSIUM 3.5 MMOL/L (3.5-5.1); SODIUM 143 MMOL/L (136-145)
[2019-07-16 07:06] LABS: HEMOGLOBIN 6.9 G/DL (14.2-18.0)
[2019-07-16 08:00] VITALS: BP 127/64
[2019-07-16] MEDS: Ascorbic Acid 500mg tab ORAL SCH ×2 (08:53→17:49)
[2019-07-16] MEDS: Dronabinol 2.5mg Cap ORAL SCH (08:53)
[2019-07-16] MEDS: Bactrim SS Tab ORAL SCH (08:53)
[2019-07-16] MEDS: Tamsulosin 0.4mg cap ORAL SCH ×2 (08:53→17:49)
[2019-07-16] MEDS: Zinc Sulfate 220mg cap ORAL SCH (08:54)
[2019-07-16 09:07] LABS: PHOSPHORUS 3.9 MG/DL (2.5-4.9)
--- NOTE | 2019-07-16 10:13 | General Progress Note ---
Assessment/Plan Assessment/Plan: (1) HIV (2) Sacral Decubitus ulcer (3) Altered mental status Patient will be continued on [place] as needed. D/w Dr. Mendoza and he concurred. Subjective Date patient seen: Jul 16, 2019 Time patient seen: 09:45 - am ROS Limited/Unobtainable: Yes Allergies: Coded Allergies: No Known Allergies (Unverified , 03/02/19) Subjective In bed no signs of pain or distress. Has not request the [place] in the last 24hrs. Objective Last 24 Hour Vital Signs Date Time Temp Pulse Resp B/P (MAP) Pulse Ox O2 Delivery O2 Flow Rate FiO2 07/16/19 08:00 97.2 93 20 127/64 (85) 97 07/16/19 04:00 96.7 89 21 125/59 (81) 95 07/15/19 23:22 97.0 89 20 118/60 (79) 94 07/15/19 20:51 Room Air 07/15/19 20:00 97.2 93 20 129/64 (85) 95 07/15/19 16:00 98.5 89 18 112/71 (85) 96 07/15/19 13:15 101/65 07/15/19 12:00 98.9 93 20 101/65 (77) 95 Intake and Output 07/15/19 07/16/19 19:00 07:00 Intake Total 1082.5 ml 150 ml Output Total 600 ml 200 ml Balance 482.5 ml -50 ml IV Total 1082.5 ml 150 ml Output Urine Total 600 ml 200 ml # Voids 1 Laboratory Tests 07/15/19 14:40: Urine Color Pale yellow, Urine Appearance Slightly cloudy, Urine pH 6, Urine Specific [place] 1.015, Urine Protein 3+H, Urine Glucose (UA) Negative, Urine Ketones Negative, Urine Blood 5+H, Urine Nitrite Negative, Urine Bilirubin Negative, Urine Urobilinogen Normal, Urine Leukocyte Esterase 3+H, Urine RBC 10- 15H, Urine WBC TntcH, Urine Squamous Epithelial Cells Occasional, Urine Bacteria ModerateH, Urine Yeast ManyH 07/16/19 05:15: White Blood Count 13.9H, Red Blood Count 2.66L, Hemoglobin 6.9*L, Hematocrit 20.9L, Mean Corpuscular Volume 79L, Mean Corpuscular Hemoglobin 26.1L, Mean Corpuscular Hemoglobin Concent 33.1, Red Cell Distribution Width 17.4H, Platelet Count 72L, Mean Platelet Volume 10.2H, Neutrophils (%) (Auto) , Lymphocytes (%) (Auto) , Monocytes (%) (Auto) , Eosinophils (%) (Auto) , Basophils (%) (Auto) , Differential Total Cells Counted 100, Neutrophils % ( Manual) 84H, Lymphocytes % (Manual) 8L, Monocytes % (Manual) 4, Eosinophils % ( Manual) 3, Basophils % (Manual) 0, Band Neutrophils 1, Platelet Estimate DecreasedL, Platelet Morphology Normal, Hypochromasia 1+, Anisocytosis 1+, Microcytosis 1+, Sodium Level 143, Potassium Level 3.5, Chloride Level 115H, Carbon Dioxide Level 17L, Anion Gap 11, Blood Urea Nitrogen 30H, Creatinine 2.0H , Estimat Glomerular Filtration Rate 40.8, Glucose Level 79, Calcium Level 8.3L , Phosphorus Level 3.9, Magnesium Level 1.6L, Total Bilirubin 0.5, Aspartate Amino Transf (AST/SGOT) 20, Alanine Aminotransferase (ALT/SGPT) 6L, Alkaline Phosphatase 96, Total Protein 5.6L, Albumin 1.3L, Globulin 4.3, Albumin/ Globulin Ratio 0.3L, Amylase Level 129H, Lipase 796H Height (Feet): 6 Height (Inches): 0.00 Weight (Pounds): 167 Objective General Appearance: no apparent distress EENT: PERRL/EOMI Neck: non-tender, normal alignment Cardiovascular: normal rate, regular rhythm Respiratory/Chest: decreased breath sounds Abdomen: non tender, soft Edema: mild edema Neurologic: responsive Skin: warm/dry Rachid Hennessy Jul 16, 2019 10:13
[2019-07-16] MEDS: Sodium Bicarbonate 100 ML in D5W 1000ml 1,000 ML IV SCH (10:50)
--- NOTE | 2019-07-16 10:59 | Nephrology Progress Note ---
Assessment/Plan Problem List: (1) Pancreatitis (2) Hypothermia (3) Hypertension (4) COPD (chronic obstructive pulmonary disease) (5) BPH (benign prostatic hyperplasia) (6) HIV disease (7) Anemia Assessment Acute renal failure, partly dehydration Anemia Hypoalbuminemia High lipase level of 1999, Pancreatitis UTI Hypothermia Toxic metabolic encephalopathy Sepsis Decubitus skin ulcer Hypothyroid Plan Today's labs were reviewed Patient refusing most of his oral medications Will attempt to discontinue what can be changing to intravenous from p.o. magnesium sulfate and potassium as needed 24-hour urine measurement for total protein results noted unremarkable Suggested blood transfusion for low hemoglobin Slow hydrate Add allopurinol 2D echocardiogram results suggestive of ejection fraction of 50% Kidney ultrasound unremarkable Urine studies Anemia work-up noted Monitor renal parameters Antibiotics Avoid nephrotoxic's Per orders Subjective ROS Limited/Unobtainable: No Constitutional: Reports: malaise, weakness Objective Objective Last 24 Hour Vital Signs Date Time Temp Pulse Resp B/P (MAP) Pulse Ox O2 Delivery O2 Flow Rate FiO2 07/16/19 08:00 97.2 93 20 127/64 (85) 97 07/16/19 04:00 96.7 89 21 125/59 (81) 95 07/15/19 23:22 97.0 89 20 118/60 (79) 94 07/15/19 20:51 Room Air 07/15/19 20:00 97.2 93 20 129/64 (85) 95 07/15/19 16:00 98.5 89 18 112/71 (85) 96 07/15/19 13:15 101/65 07/15/19 12:00 98.9 93 20 101/65 (77) 95 Intake and Output 07/15/19 07/16/19 19:00 07:00 Intake Total 1082.5 ml 150 ml Output Total 600 ml 200 ml Balance 482.5 ml -50 ml IV Total 1082.5 ml 150 ml Output Urine Total 600 ml 200 ml # Voids 1 Laboratory Tests 07/15/19 14:40: Urine Color Pale yellow, Urine Appearance Slightly cloudy, Urine pH 6, Urine Specific [place] 1.015, Urine Protein 3+H, Urine Glucose (UA) Negative, Urine Ketones Negative, Urine Blood 5+H, Urine Nitrite Negative, Urine Bilirubin Negative, Urine Urobilinogen Normal, Urine Leukocyte Esterase 3+H, Urine RBC 10- 15H, Urine WBC TntcH, Urine Squamous Epithelial Cells Occasional, Urine Bacteria ModerateH, Urine Yeast ManyH 07/16/19 05:15: White Blood Count 13.9H, Red Blood Count 2.66L, Hemoglobin 6.9*L, Hematocrit 20.9L, Mean Corpuscular Volume 79L, Mean Corpuscular Hemoglobin 26.1L, Mean Corpuscular Hemoglobin Concent 33.1, Red Cell Distribution Width 17.4H, Platelet Count 72L, Mean Platelet Volume 10.2H, Neutrophils (%) (Auto) , Lymphocytes (%) (Auto) , Monocytes (%) (Auto) , Eosinophils (%) (Auto) , Basophils (%) (Auto) , Differential Total Cells Counted 100, Neutrophils % ( Manual) 84H, Lymphocytes % (Manual) 8L, Monocytes % (Manual) 4, Eosinophils % ( Manual) 3, Basophils % (Manual) 0, Band Neutrophils 1, Platelet Estimate DecreasedL, Platelet Morphology Normal, Hypochromasia 1+, Anisocytosis 1+, Microcytosis 1+, Sodium Level 143, Potassium Level 3.5, Chloride Level 115H, Carbon Dioxide Level 17L, Anion Gap 11, Blood Urea Nitrogen 30H, Creatinine 2.0H , Estimat Glomerular Filtration Rate 40.8, Glucose Level 79, Calcium Level 8.3L , Phosphorus Level 3.9, Magnesium Level 1.6L, Total Bilirubin 0.5, Aspartate Amino Transf (AST/SGOT) 20, Alanine Aminotransferase (ALT/SGPT) 6L, Alkaline Phosphatase 96, Total Protein 5.6L, Albumin 1.3L, Globulin 4.3, Albumin/ Globulin Ratio 0.3L, Amylase Level 129H, Lipase 796H Height (Feet): 6 Height (Inches): 0.00 Weight (Pounds): 167 General Appearance: lethargic Cardiovascular: normal rate Respiratory/Chest: decreased breath sounds Abdomen: distended Objective No change Zander Razo MD Jul 16, 2019 10:59
--- NOTE | 2019-07-16 11:34 | General Progress Note ---
Assessment/Plan Assessment/Plan: 1. History of HIV. 2.thrombocytopenia 3. Anemia. 4. Sepsis. 5. UTIs with MRSA. 6. Hypertension. 7. COPD. 8. BPH. 9. Sacral decubital ulcerations, stage III. 10. Malnutrition. 11. pancreatitis 12. Dilated IHD drop in H&H without obvious GIB repeat CBc and transfuse if HGB below 7, D/W sister at length fu stool ob fu cbc improving amyalse and lipase asymptomatic us reviewed repeat labs in am dc haven d/w sister, needs enteral feeding. will try NGTF for now but may need PEG off heparin given thrombocytopenia Subjective ROS Limited/Unobtainable: No Allergies: Coded Allergies: No Known Allergies (Unverified , 03/02/19) Subjective poor po intake refusing meds Objective Last 24 Hour Vital Signs Date Time Temp Pulse Resp B/P (MAP) Pulse Ox O2 Delivery O2 Flow Rate FiO2 07/16/19 09:00 Room Air 07/16/19 08:00 97.2 93 20 127/64 (85) 97 07/16/19 04:00 96.7 89 21 125/59 (81) 95 07/15/19 23:22 97.0 89 20 118/60 (79) 94 07/15/19 20:51 Room Air 07/15/19 20:00 97.2 93 20 129/64 (85) 95 07/15/19 16:00 98.5 89 18 112/71 (85) 96 07/15/19 13:15 101/65 07/15/19 12:00 98.9 93 20 101/65 (77) 95 Intake and Output 07/15/19 07/16/19 19:00 07:00 Intake Total 1082.5 ml 150 ml Output Total 600 ml 200 ml Balance 482.5 ml -50 ml IV Total 1082.5 ml 150 ml Output Urine Total 600 ml 200 ml # Voids 1 Laboratory Tests 07/15/19 14:40: Urine Color Pale yellow, Urine Appearance Slightly cloudy, Urine pH 6, Urine Specific [place] 1.015, Urine Protein 3+H, Urine Glucose (UA) Negative, Urine Ketones Negative, Urine Blood 5+H, Urine Nitrite Negative, Urine Bilirubin Negative, Urine Urobilinogen Normal, Urine Leukocyte Esterase 3+H, Urine RBC 10- 15H, Urine WBC TntcH, Urine Squamous Epithelial Cells Occasional, Urine Bacteria ModerateH, Urine Yeast ManyH 07/16/19 05:15: White Blood Count 13.9H, Red Blood Count 2.66L, Hemoglobin 6.9*L, Hematocrit 20.9L, Mean Corpuscular Volume 79L, Mean Corpuscular Hemoglobin 26.1L, Mean Corpuscular Hemoglobin Concent 33.1, Red Cell Distribution Width 17.4H, Platelet Count 72L, Mean Platelet Volume 10.2H, Neutrophils (%) (Auto) , Lymphocytes (%) (Auto) , Monocytes (%) (Auto) , Eosinophils (%) (Auto) , Basophils (%) (Auto) , Differential Total Cells Counted 100, Neutrophils % ( Manual) 84H, Lymphocytes % (Manual) 8L, Monocytes % (Manual) 4, Eosinophils % ( Manual) 3, Basophils % (Manual) 0, Band Neutrophils 1, Platelet Estimate DecreasedL, Platelet Morphology Normal, Hypochromasia 1+, Anisocytosis 1+, Microcytosis 1+, Sodium Level 143, Potassium Level 3.5, Chloride Level 115H, Carbon Dioxide Level 17L, Anion Gap 11, Blood Urea Nitrogen 30H, Creatinine 2.0H , Estimat Glomerular Filtration Rate 40.8, Glucose Level 79, Calcium Level 8.3L , Phosphorus Level 3.9, Magnesium Level 1.6L, Total Bilirubin 0.5, Aspartate Amino Transf (AST/SGOT) 20, Alanine Aminotransferase (ALT/SGPT) 6L, Alkaline Phosphatase 96, Total Protein 5.6L, Albumin 1.3L, Globulin 4.3, Albumin/ Globulin Ratio 0.3L, Amylase Level 129H, Lipase 796H Height (Feet): 6 Height (Inches): 0.00 Weight (Pounds): 167 General Appearance: alert EENT: PERRL/EOMI Neck: supple Respiratory/Chest: decreased breath sounds Abdomen: normal bowel sounds, non tender, soft Extremities: non-tender Mansoor Interiano MD Jul 16, 2019 11:34
[2019-07-16 12:00] VITALS: BP 131/68
[2019-07-16] MEDS: Nitroglycerin Patch 0.4mg TDERMAL SCH (12:15)
[2019-07-16 12:58] LABS: HEMATOCRIT 23.2 % (42.0-52.0); HEMOGLOBIN 7.7 G/DL (14.2-18.0); MEAN CORPUSCULAR VOLUME 79 FL (80-99); PLATELET COUNT 82 K/UL (150-450); RED BLOOD COUNT 2.92 M/UL (4.70-6.10); RED CELL DISTRIBUTION WIDTH 17.4 % (11.6-14.8); WHITE BLOOD COUNT 13.2 K/UL (4.8-10.8)
[2019-07-16] MEDS ORDERED: Dronabinol 2.5mg Cap ORAL SCH (13:00)
--- NOTE | 2019-07-16 13:20 | Diagnostic Imaging Report ---
Indication: Dyspnea Comparison: 07/08/2019 A single view chest radiograph was obtained. Findings: There is mild basal atelectasis. On the left this is probably stable. On the right this appears increased. The heart is mildly enlarged. Aorta is ectatic and calcified. Pulmonary vascularity appears slightly increased compared to the prior occasion but the there is no overt CHF. IMPRESSION: Basal atelectasis. Superimposed pneumonia is possible.
--- NOTE | 2019-07-16 15:26 | Pulmonology Progress Note ---
Assessment/Plan Problems: (1) Sepsis (2) Altered level of consciousness (3) COPD (chronic obstructive pulmonary disease) (4) Pancreatitis (5) Decubitus skin ulcer (6) Hypertension (7) BPH (benign prostatic hyperplasia) (8) HIV disease Assessment/Plan absolute CD4 count noted mental status improved wound care iv abx adams culture, VRE positive, BC negative f/u amylase lipase swallow study pt refusing meds at times dvt prophylaxis. Subjective ROS Limited/Unobtainable: No Constitutional: Reports: no symptoms HEENT: Repors: no symptoms Respiratory: Reports: no symptoms Allergies: Coded Allergies: No Known Allergies (Unverified , 03/02/19) Objective Last 24 Hour Vital Signs Date Time Temp Pulse Resp B/P (MAP) Pulse Ox O2 Delivery O2 Flow Rate FiO2 07/16/19 12:15 131/68 07/16/19 12:00 97.4 88 19 131/68 (89) 98 07/16/19 09:00 Room Air 07/16/19 08:00 97.2 93 20 127/64 (85) 97 07/16/19 04:00 96.7 89 21 125/59 (81) 95 07/15/19 23:22 97.0 89 20 118/60 (79) 94 07/15/19 20:51 Room Air 07/15/19 20:00 97.2 93 20 129/64 (85) 95 07/15/19 16:00 98.5 89 18 112/71 (85) 96 Intake and Output 07/15/19 07/16/19 19:00 07:00 Intake Total 1082.5 ml 150 ml Output Total 600 ml 200 ml Balance 482.5 ml -50 ml IV Total 1082.5 ml 150 ml Output Urine Total 600 ml 200 ml # Voids 1 Objective General Appearance: cachectic HEENT: normocephalic Respiratory/Chest: chest wall non-tender, lungs clear Cardiovascular: normal rate, regular rhythm Abdomen: normal bowel sounds, no organomegaly Extremities: no cyanosis Bed bound Microbiology Date/Time Source Procedure Growth Status 07/15/19 14:40 Indwelling Cath Urine Culture - Preliminary NO GROWTH Resulted Laboratory Tests 07/16/19 05:15: White Blood Count 13.9H, Red Blood Count 2.66L, Hemoglobin 6.9*L, Hematocrit 20.9L, Mean Corpuscular Volume 79L, Mean Corpuscular Hemoglobin 26.1L, Mean Corpuscular Hemoglobin Concent 33.1, Red Cell Distribution Width 17.4H, Platelet Count 72L, Mean Platelet Volume 10.2H, Neutrophils (%) (Auto) , Lymphocytes (%) (Auto) , Monocytes (%) (Auto) , Eosinophils (%) (Auto) , Basophils (%) (Auto) , Differential Total Cells Counted 100, Neutrophils % ( Manual) 84H, Lymphocytes % (Manual) 8L, Monocytes % (Manual) 4, Eosinophils % ( Manual) 3, Basophils % (Manual) 0, Band Neutrophils 1, Platelet Estimate DecreasedL, Platelet Morphology Normal, Hypochromasia 1+, Anisocytosis 1+, Microcytosis 1+, Sodium Level 143, Potassium Level 3.5, Chloride Level 115H, Carbon Dioxide Level 17L, Anion Gap 11, Blood Urea Nitrogen 30H, Creatinine 2.0H , Estimat Glomerular Filtration Rate 40.8, Glucose Level 79, Calcium Level 8.3L , Phosphorus Level 3.9, Magnesium Level 1.6L, Total Bilirubin 0.5, Aspartate Amino Transf (AST/SGOT) 20, Alanine Aminotransferase (ALT/SGPT) 6L, Alkaline Phosphatase 96, Total Protein 5.6L, Albumin 1.3L, Globulin 4.3, Albumin/ Globulin Ratio 0.3L, Amylase Level 129H, Lipase 796H 07/16/19 12:10: White Blood Count 13.2H, Red Blood Count 2.92L, Hemoglobin 7.7L, Hematocrit 23.2L, Mean Corpuscular Volume 79L, Mean Corpuscular Hemoglobin 26.4L, Mean Corpuscular Hemoglobin Concent 33.3, Red Cell Distribution Width 17.4H, Platelet Count 82L, Mean Platelet Volume 10.7H, Neutrophils (%) (Auto) , Lymphocytes (%) (Auto) , Monocytes (%) (Auto) , Eosinophils (%) (Auto) , Basophils (%) (Auto) , Differential Total Cells Counted 100, Neutrophils % ( Manual) 77H, Lymphocytes % (Manual) 11L, Monocytes % (Manual) 2, Eosinophils % ( Manual) 10H, Basophils % (Manual) 0, Band Neutrophils 0, Platelet Estimate Adequate, Platelet Morphology Normal, Hypochromasia 1+, Anisocytosis 1+, Microcytosis 1+ Current Medications Medications (Trade) Dose Ordered Sig/Deborah Route PRN Reason Start Time Stop Time Status Last Admin Dose Admin Acetaminophen (Tylenol) 650 mg Q4H PRN ORAL fever 07/08/19 19:45 08/07/19 19:44 Acetaminophen/ Hydrocodone Bitart ([place] 5/325) 0.5 tab Q4H PRN ORAL Severe Pain (Pain Scale 7-10) 07/11/19 15:45 07/18/19 15:44 Allopurinol (allopurinoL) 300 mg DAILY ORAL 07/14/19 09:00 08/13/19 08:59 Ascorbic Acid (Vitamin C) 500 mg TWICE A DAY ORAL 07/10/19 18:00 08/09/19 17:59 07/12/19 17:54 Chlorhexidine Gluconate (Leslei-Hex 2%) 1 applic DAILY@1999 TOPIC 07/12/19 20:00 10/10/19 19:59 07/14/19 22:06 Dextrose (Dextrose 50%) 25 ml Q30M PRN IV Hypoglycemia 07/13/19 14:00 10/11/19 13:59 07/15/19 21:31 Dextrose (Dextrose 50%) 50 ml Q30M PRN IV Hypoglycemia 07/13/19 14:00 10/11/19 13:59 07/14/19 11:33 Hydralazine HCl (Apresoline) 25 mg Q4HR PRN ORAL BP over 160 systolic 07/09/19 14:45 10/07/19 14:44 07/11/19 17:19 Insulin Aspart (NovoLOG) BEFORE MEALS AND HS SUBQ 07/13/19 16:30 10/11/19 16:29 Linaclotide (Linzess) 288 mcg BEFORE BREAKFAST ORAL 07/17/19 06:30 10/15/19 06:29 Nitroglycerin (Ntg) 0.4 mg Q5M PRN SL Prn Chest Pain 07/08/19 19:45 08/07/19 19:44 Nitroglycerin (Ntg) 1 patch Q24H TDERMAL 07/10/19 13:00 08/09/19 12:59 07/16/19 12:15 Ondansetron HCl (Zofran) 4 mg Q6H PRN IVP Nausea & Vomiting 07/08/19 19:45 08/07/19 19:44 Pantoprazole (Protonix) 40 mg EVERY 12 HOURS IVP 07/16/19 21:00 08/15/19 20:59 Piperacillin Sod/ Tazobactam Sod 3.375 gm/Sodium Chloride 110 ml @ 27.5 mls/hr EVERY 8 HOURS IVPB 07/15/19 14:00 07/20/19 13:59 07/16/19 12:23 Polyethylene Glycol (Miralax) 17 gm DAILYPRN PRN ORAL Constipation 07/08/19 19:45 08/07/19 19:44 Sodium Bicarbonate 100 ml/Dextrose 1,100 ml @ 75 mls/hr [id number] IV 07/14/19 13:30 08/13/19 13:29 07/16/19 10:50 Tamsulosin HCl (Flomax) 0.4 mg BID ORAL 07/09/19 09:00 08/08/19 08:59 07/12/19 17:55 Trimethoprim/ Sulfamethoxazole (Bactrim Single Strength) 1 tab DAILY ORAL 07/13/19 09:00 07/20/19 08:59 Zinc Sulfate (Zinc Sulfate) 220 mg DAILY ORAL 07/11/19 09:00 07/21/19 08:59 07/12/19 09:21 Rico Chavarria MD Jul 16, 2019 15:26
[2019-07-16 16:00] VITALS: BP_SYST 124; BP_SYST 153; BP_DIAS 66; BP_DIAS 76
--- NOTE | 2019-07-16 17:41 | Diagnostic Imaging Report ---
Indication: Post nasogastric tube placement Technique: One view of the upper abdomen Comparison: 03/10/2019 Findings: Interim placement of a nasogastric tube, well within the gastric body, proximal port well beyond the gastroesophageal junction. Mildly dilated small bowel loops are seen in the left upper quadrant. Impression: Satisfactory nasogastric intubation Mildly dilated small bowel loops, nonspecific
--- NOTE | 2019-07-16 19:02 | Infectious Diseases Prog Note ---
Assessment/Plan Assessment/Plan 63yo man admitted with abdominal pain and diarrhea. Afebrile Leukocytosis ( Ch, doubt ID related ) ; improving ? ALOC improved, probable UTI 07/14 UA positive, UCx: P Hx of Diarrhea/colitis- 03/02 CT: Suspected colitis with the thickening of the wall the colon. Correlate clinically. Thickening of the wall the urinary bladder. Correlate for cystitis. C diff negative x2 stool cx negative stool o/p x1 negative -Negative: E. histolytica ab, Echinococcus ab HIV Screen positive- new diagnosis in February 2019 HIV-1 Abt positive. 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 no evid of biliary - US : Mild intrahepatic biliary ductal dilatation. MRI of brain ( could not be done ) COPD. Hypertension. BPH. History of cocaine abuse in the past. Bedbound. PLAN: Ceftriaxone #1, f/u ucx pt is refusing meds from time time making HIV Rx difficult on Bactrim DS for PCP PPx 07/12 SP IV Vanco and Cefepime # 4/5 monitor CBC, temp pt must follow up with PMD/HIV specialist once discharged CD4 HIV Genotype DW RN Subjective Allergies: Coded Allergies: No Known Allergies (Unverified , 03/02/19) Subjective SP NGT placement. Pt is lethargic and unable to provide ROS Objective Vital Signs Last 24 Hour Vital Signs Date Time Temp Pulse Resp B/P (MAP) Pulse Ox O2 Delivery O2 Flow Rate FiO2 07/16/19 16:00 97.8 96 20 124/66 (85) 97 96 07/16/19 12:15 131/68 07/16/19 12:00 97.4 88 19 131/68 (89) 98 07/16/19 09:00 Room Air 07/16/19 08:00 97.2 93 20 127/64 (85) 97 07/16/19 04:00 96.7 89 21 125/59 (81) 95 07/15/19 23:22 97.0 89 20 118/60 (79) 94 07/15/19 20:51 Room Air 07/15/19 20:00 97.2 93 20 129/64 (85) 95 Height (Feet): 6 Height (Inches): 0.00 Weight (Pounds): 167 Objective Gen: NAD HEENT: NGT CV: RRR Resp: coarse. regular. equal chest rise Abd: soft. Neuro: somnoelnt Microbiology Date/Time Source Procedure Growth Status 07/15/19 14:40 Indwelling Cath Urine Culture - Preliminary NO GROWTH Resulted Laboratory Tests Test 07/16/19 05:15 07/16/19 12:10 White Blood Count 13.9 K/UL (4.8-10.8) H 13.2 K/UL (4.8-10.8) H Red Blood Count 2.66 M/UL (4.70-6.10) L 2.92 M/UL (4.70-6.10) L Hemoglobin 6.9 G/DL (14.2-18.0) *L 7.7 G/DL (14.2-18.0) L Hematocrit 20.9 % (42.0-52.0) L 23.2 % (42.0-52.0) L Mean Corpuscular Volume 79 FL (80-99) L 79 FL (80-99) L Mean Corpuscular Hemoglobin 26.1 PG (27.0-31.0) L 26.4 PG (27.0-31.0) L Mean Corpuscular Hemoglobin Concent 33.1 G/DL (32.0-36.0) 33.3 G/DL (32.0-36.0) Red Cell Distribution Width 17.4 % (11.6-14.8) H 17.4 % (11.6-14.8) H Platelet Count 72 K/UL (150-450) L 82 K/UL (150-450) L Mean Platelet Volume 10.2 FL (6.5-10.1) H 10.7 FL (6.5-10.1) H Neutrophils (%) (Auto) % (45.0-75.0) % (45.0-75.0) Lymphocytes (%) (Auto) % (20.0-45.0) % (20.0-45.0) Monocytes (%) (Auto) % (1.0-10.0) % (1.0-10.0) Eosinophils (%) (Auto) % (0.0-3.0) % (0.0-3.0) Basophils (%) (Auto) % (0.0-2.0) % (0.0-2.0) Differential Total Cells Counted 100 100 Neutrophils % (Manual) 84 % (45-75) H 77 % (45-75) H Lymphocytes % (Manual) 8 % (20-45) L 11 % (20-45) L Monocytes % (Manual) 4 % (1-10) 2 % (1-10) Eosinophils % (Manual) 3 % (0-3) 10 % (0-3) H Basophils % (Manual) 0 % (0-2) 0 % (0-2) Band Neutrophils 1 % (0-8) 0 % (0-8) Platelet Estimate Decreased L Adequate Platelet Morphology Normal Normal Hypochromasia 1+ 1+ Anisocytosis 1+ 1+ Microcytosis 1+ 1+ Sodium Level 143 MMOL/L (136-145) Potassium Level 3.5 MMOL/L (3.5-5.1) Chloride Level 115 MMOL/L (98-107) H Carbon Dioxide Level 17 MMOL/L (21-32) L Anion Gap 11 mmol/L (5-15) Blood Urea Nitrogen 30 mg/dL (7-18) H Creatinine 2.0 MG/DL (0.55-1.30) H Estimat Glomerular Filtration Rate 40.8 mL/min (>60) Glucose Level 79 MG/DL (74-106) Calcium Level 8.3 MG/DL (8.5-10.1) L Phosphorus Level 3.9 MG/DL (2.5-4.9) Magnesium Level 1.6 MG/DL (1.8-2.4) L Total Bilirubin 0.5 MG/DL (0.2-1.0) Aspartate Amino Transf (AST/SGOT) 20 U/L (15-37) Alanine Aminotransferase (ALT/SGPT) 6 U/L (12-78) L Alkaline Phosphatase 96 U/L (46-116) Total Protein 5.6 G/DL (6.4-8.2) L Albumin 1.3 G/DL (3.4-5.0) L Globulin 4.3 g/dL Albumin/Globulin Ratio 0.3 (1.0-2.7) L Amylase Level 129 U/L (25-115) H Lipase 796 U/L (73-393) H Current Medications Medications (Trade) Dose Ordered Sig/Deborah Route PRN Reason Start Time Stop Time Status Last Admin Dose Admin Acetaminophen (Tylenol) 650 mg Q4H PRN ORAL fever 07/08/19 19:45 08/07/19 19:44 Acetaminophen/ Hydrocodone Bitart ([place] 5/325) 0.5 tab Q4H PRN ORAL Severe Pain (Pain Scale 7-10) 07/11/19 15:45 07/18/19 15:44 Allopurinol (allopurinoL) 300 mg DAILY ORAL 07/14/19 09:00 08/13/19 08:59 Ascorbic Acid (Vitamin C) 500 mg TWICE A DAY ORAL 07/10/19 18:00 08/09/19 17:59 07/12/19 17:54 Chlorhexidine Gluconate ([place]lie-Hex 2%) 1 applic DAILY@1999 TOPIC 07/12/19 20:00 10/10/19 19:59 07/14/19 22:06 Dextrose (Dextrose 50%) 25 ml Q30M PRN IV Hypoglycemia 07/13/19 14:00 10/11/19 13:59 07/15/19 21:31 Dextrose (Dextrose 50%) 50 ml Q30M PRN IV Hypoglycemia 07/13/19 14:00 10/11/19 13:59 07/14/19 11:33 Hydralazine HCl (Apresoline) 25 mg Q4HR PRN ORAL BP over 160 systolic 07/09/19 14:45 10/07/19 14:44 07/11/19 17:19 Insulin Aspart (NovoLOG) BEFORE MEALS AND HS SUBQ 07/13/19 16:30 10/11/19 16:29 Linaclotide (Linzess) 288 mcg BEFORE BREAKFAST ORAL 07/17/19 06:30 10/15/19 06:29 Nitroglycerin (Ntg) 0.4 mg Q5M PRN SL Prn Chest Pain 07/08/19 19:45 08/07/19 19:44 Nitroglycerin (Ntg) 1 patch Q24H TDERMAL 07/10/19 13:00 08/09/19 12:59 07/16/19 12:15 Ondansetron HCl (Zofran) 4 mg Q6H PRN IVP Nausea & Vomiting 07/08/19 19:45 08/07/19 19:44 Pantoprazole (Protonix) 40 mg EVERY 12 HOURS IVP 07/16/19 21:00 08/15/19 20:59 Piperacillin Sod/ Tazobactam Sod 3.375 gm/Sodium Chloride 110 ml @ 27.5 mls/hr EVERY 8 HOURS IVPB 07/15/19 14:00 07/20/19 13:59 07/16/19 12:23 Polyethylene Glycol (Miralax) 17 gm DAILYPRN PRN ORAL Constipation 07/08/19 19:45 08/07/19 19:44 Sodium Bicarbonate 100 ml/Dextrose 1,100 ml @ 75 mls/hr [id number] IV 07/14/19 13:30 08/13/19 13:29 07/16/19 10:50 Tamsulosin HCl (Flomax) 0.4 mg BID ORAL 07/09/19 09:00 08/08/19 08:59 07/12/19 17:55 Trimethoprim/ Sulfamethoxazole (Bactrim Single Strength) 1 tab DAILY ORAL 07/13/19 09:00 07/20/19 08:59 Zinc Sulfate (Zinc Sulfate) 220 mg DAILY ORAL 07/11/19 09:00 07/21/19 08:59 07/12/19 09:21 Olegario Carroll MD Jul 16, 2019 19:02
[2019-07-16 20:00] VITALS: BP 129/68
[2019-07-16] MEDS: Pantoprazole Inj IVP SCH (20:33)
[2019-07-16] MEDS: Dyna-Hex 2% Top Sol 2oz TOPIC SCH (20:33)
[2019-07-16] MEDS: cefTRIAXone 1 GM in D5W 55 ML IVPB SCH (20:33)
[2019-07-17] VITALS: BP 128/64
[2019-07-17] MEDS: Sodium Bicarbonate 100 ML in D5W 1000ml 1,000 ML IV SCH (00:24)
[2019-07-17 04:00] VITALS: BP 117/63
[2019-07-17] MEDS: Piperacillin/Tazobactam 3.375 GM in NS 110 ML IVPB SCH ×2 (05:15→12:56)
[2019-07-17] MEDS: NovoLOG Insulin Flexpen SUBQ SCH ×4 (05:49→20:25)
[2019-07-17] MEDS: Linaclotide 72mcg ORAL SCH (06:11)
[2019-07-17 08:00] VITALS: BP 130/68
[2019-07-17] MEDS: Zinc Sulfate 220mg cap ORAL SCH (08:15)
[2019-07-17] MEDS: Pantoprazole Inj IVP SCH ×2 (08:15→19:48)
[2019-07-17] MEDS: Tamsulosin 0.4mg cap ORAL SCH ×2 (08:15→17:18)
[2019-07-17] MEDS: Bactrim SS Tab ORAL SCH (08:15)
[2019-07-17] MEDS: Ascorbic Acid 500mg tab ORAL SCH ×2 (08:15→17:19)
[2019-07-17 09:05] LABS: MEAN CORPUSCULAR VOLUME 80 FL (80-99); PLATELET COUNT 90 K/UL (150-450); RED BLOOD COUNT 3.01 M/UL (4.70-6.10); RED CELL DISTRIBUTION WIDTH 17.9 % (11.6-14.8); WHITE BLOOD COUNT 16.8 K/UL (4.8-10.8)
[2019-07-17 09:38] LABS: AMYLASE 137 U/L (25-115)
[2019-07-17 09:41] LABS: ALANINE AMINOTRANSFERASE 10 U/L (12-78); ALBUMIN 1.3 G/DL (3.4-5.0); ALBUMIN/GLOBULIN RATIO 0.3 (1.0-2.7); ALKALINE PHOSPHATASE 144 U/L (46-116); ANION GAP 14 mmol/L (5-15); ASPARTATE AMINO TRANSFERASE 25 U/L (15-37); BILIRUBIN,TOTAL 0.4 MG/DL (0.2-1.0); BLOOD UREA NITROGEN 31 mg/dL (7-18); CALCIUM 8.5 MG/DL (8.5-10.1); CARBON DIOXIDE 17 MMOL/L (21-32); CHLORIDE 115 MMOL/L (98-107); CREATININE 2.2 MG/DL (0.55-1.30); POTASSIUM 3.7 MMOL/L (3.5-5.1); SODIUM 146 MMOL/L (136-145)
--- NOTE | 2019-07-17 10:50 | General Progress Note ---
Assessment/Plan Assessment/Plan: 1. History of HIV. 2.thrombocytopenia 3. Anemia. 4. Sepsis. 5. UTIs with MRSA. 6. Hypertension. 7. COPD. 8. BPH. 9. Sacral decubital ulcerations, stage III. 10. Malnutrition. 11. pancreatitis 12. Dilated IHD CT of abd and pelvic repeat labs in am NGTF for now but may need PEG. plan for Tuesday if family agrees off heparin given thrombocytopenia Subjective ROS Limited/Unobtainable: No Allergies: Coded Allergies: No Known Allergies (Unverified , 03/02/19) Subjective poor po intake refusing meds Objective Last 24 Hour Vital Signs Date Time Temp Pulse Resp B/P (MAP) Pulse Ox O2 Delivery O2 Flow Rate FiO2 07/17/19 09:00 Room Air 07/17/19 08:00 96.9 81 22 130/68 (88) 97 07/17/19 04:00 98.4 100 20 117/63 (81) 96 07/17/19 00:00 98.4 98 24 128/64 (85) 97 07/16/19 21:16 Room Air 07/16/19 20:00 97.9 100 24 129/68 (88) 95 100 07/16/19 16:00 97.8 96 20 124/66 (85) 97 96 07/16/19 12:15 131/68 07/16/19 12:00 97.4 88 19 131/68 (89) 98 Intake and Output 07/16/19 07/17/19 19:00 07:00 Intake Total 935.0 ml 767.5 ml Output Total 600 ml Balance 335.0 ml 767.5 ml Free Water 200 ml IV Total 935.0 ml 27.5 ml Tube Feeding 540 ml Output Urine Total 600 ml Laboratory Tests 07/16/19 12:10: White Blood Count 13.2H, Red Blood Count 2.92L, Hemoglobin 7.7L, Hematocrit 23.2L, Mean Corpuscular Volume 79L, Mean Corpuscular Hemoglobin 26.4L, Mean Corpuscular Hemoglobin Concent 33.3, Red Cell Distribution Width 17.4H, Platelet Count 82L, Mean Platelet Volume 10.7H, Neutrophils (%) (Auto) , Lymphocytes (%) (Auto) , Monocytes (%) (Auto) , Eosinophils (%) (Auto) , Basophils (%) (Auto) , Differential Total Cells Counted 100, Neutrophils % ( Manual) 77H, Lymphocytes % (Manual) 11L, Monocytes % (Manual) 2, Eosinophils % ( Manual) 10H, Basophils % (Manual) 0, Band Neutrophils 0, Platelet Estimate Adequate, Platelet Morphology Normal, Hypochromasia 1+, Anisocytosis 1+, Microcytosis 1+ 07/17/19 08:45: White Blood Count 16.8H, Red Blood Count 3.01L, Hemoglobin 8.0L, Hematocrit 24.0L, Mean Corpuscular Volume 80, Mean Corpuscular Hemoglobin 26.7L, Mean Corpuscular Hemoglobin Concent 33.6, Red Cell Distribution Width 17.9H, Platelet Count 90L, Mean Platelet Volume 8.9, Neutrophils (%) (Auto) , Lymphocytes (%) (Auto) , Monocytes (%) (Auto) , Eosinophils (%) (Auto) , Basophils (%) (Auto) , Differential Total Cells Counted 100, Neutrophils % ( Manual) 82H, Lymphocytes % (Manual) 12L, Monocytes % (Manual) 1, Eosinophils % ( Manual) 5H, Basophils % (Manual) 0, Band Neutrophils 0, Platelet Estimate DecreasedL, Platelet Morphology Normal, Hypochromasia 2+, Spherocytes 2+, Sodium Level 146H, Potassium Level 3.7, Chloride Level 115H, Carbon Dioxide Level 17L, Anion Gap 14, Blood Urea Nitrogen 31H, Creatinine 2.2H, Estimat Glomerular Filtration Rate 36.6, Glucose Level 104, Calcium Level 8.5, Total Bilirubin 0.4, Aspartate Amino Transf (AST/SGOT) 25, Alanine Aminotransferase ( ALT/SGPT) 10L, Alkaline Phosphatase 144H, Total Protein 6.2L, Albumin 1.3L, Globulin 4.9, Albumin/Globulin Ratio 0.3L, Amylase Level 137H, Lipase 937H Height (Feet): 6 Height (Inches): 0.00 Weight (Pounds): 167 General Appearance: no apparent distress EENT: normal ENT inspection Neck: supple Cardiovascular: normal rate Respiratory/Chest: decreased breath sounds Abdomen: normal bowel sounds, non tender, soft Extremities: non-tender Mansoor Interiano MD Jul 17, 2019 10:50
[2019-07-17] MEDS ORDERED: Omnipaque-300 100ml vial INJ PRN (11:00)
--- NOTE | 2019-07-17 11:07 | Nephrology Progress Note ---
Assessment/Plan Problem List: (1) Pancreatitis (2) Hypothermia (3) Hypertension (4) COPD (chronic obstructive pulmonary disease) (5) BPH (benign prostatic hyperplasia) (6) HIV disease (7) Anemia Assessment Acute renal failure, partly dehydration Anemia Hypoalbuminemia High lipase level of 1999, Pancreatitis UTI Hypothermia Toxic metabolic encephalopathy Sepsis Decubitus skin ulcer Hypothyroid Plan Today's labs were reviewed Patient refusing most of his oral medications, however now has NG tube Will attempt to discontinue what can be changing to intravenous from p.o. and or NG tube route magnesium sulfate and potassium as needed 24-hour urine measurement for total protein results noted unremarkable Suggested blood transfusion for low hemoglobin Slow hydrate Add allopurinol 2D echocardiogram results suggestive of ejection fraction of 50% Kidney ultrasound unremarkable Urine studies Anemia work-up noted Monitor renal parameters Antibiotics Avoid nephrotoxic's Per orders Subjective ROS Limited/Unobtainable: No Constitutional: Reports: malaise, weakness Objective Objective Last 24 Hour Vital Signs Date Time Temp Pulse Resp B/P (MAP) Pulse Ox O2 Delivery O2 Flow Rate FiO2 07/17/19 09:00 Room Air 07/17/19 08:00 96.9 81 22 130/68 (88) 97 07/17/19 04:00 98.4 100 20 117/63 (81) 96 07/17/19 00:00 98.4 98 24 128/64 (85) 97 07/16/19 21:16 Room Air 07/16/19 20:00 97.9 100 24 129/68 (88) 95 100 07/16/19 16:00 97.8 96 20 124/66 (85) 97 96 07/16/19 12:15 131/68 07/16/19 12:00 97.4 88 19 131/68 (89) 98 Intake and Output 07/16/19 07/17/19 19:00 07:00 Intake Total 935.0 ml 767.5 ml Output Total 600 ml Balance 335.0 ml 767.5 ml Free Water 200 ml IV Total 935.0 ml 27.5 ml Tube Feeding 540 ml Output Urine Total 600 ml Laboratory Tests 07/16/19 12:10: White Blood Count 13.2H, Red Blood Count 2.92L, Hemoglobin 7.7L, Hematocrit 23.2L, Mean Corpuscular Volume 79L, Mean Corpuscular Hemoglobin 26.4L, Mean Corpuscular Hemoglobin Concent 33.3, Red Cell Distribution Width 17.4H, Platelet Count 82L, Mean Platelet Volume 10.7H, Neutrophils (%) (Auto) , Lymphocytes (%) (Auto) , Monocytes (%) (Auto) , Eosinophils (%) (Auto) , Basophils (%) (Auto) , Differential Total Cells Counted 100, Neutrophils % ( Manual) 77H, Lymphocytes % (Manual) 11L, Monocytes % (Manual) 2, Eosinophils % ( Manual) 10H, Basophils % (Manual) 0, Band Neutrophils 0, Platelet Estimate Adequate, Platelet Morphology Normal, Hypochromasia 1+, Anisocytosis 1+, Microcytosis 1+ 07/17/19 08:45: White Blood Count 16.8H, Red Blood Count 3.01L, Hemoglobin 8.0L, Hematocrit 24.0L, Mean Corpuscular Volume 80, Mean Corpuscular Hemoglobin 26.7L, Mean Corpuscular Hemoglobin Concent 33.6, Red Cell Distribution Width 17.9H, Platelet Count 90L, Mean Platelet Volume 8.9, Neutrophils (%) (Auto) , Lymphocytes (%) (Auto) , Monocytes (%) (Auto) , Eosinophils (%) (Auto) , Basophils (%) (Auto) , Differential Total Cells Counted 100, Neutrophils % ( Manual) 82H, Lymphocytes % (Manual) 12L, Monocytes % (Manual) 1, Eosinophils % ( Manual) 5H, Basophils % (Manual) 0, Band Neutrophils 0, Platelet Estimate DecreasedL, Platelet Morphology Normal, Hypochromasia 2+, Spherocytes 2+, Sodium Level 146H, Potassium Level 3.7, Chloride Level 115H, Carbon Dioxide Level 17L, Anion Gap 14, Blood Urea Nitrogen 31H, Creatinine 2.2H, Estimat Glomerular Filtration Rate 36.6, Glucose Level 104, Calcium Level 8.5, Total Bilirubin 0.4, Aspartate Amino Transf (AST/SGOT) 25, Alanine Aminotransferase ( ALT/SGPT) 10L, Alkaline Phosphatase 144H, Total Protein 6.2L, Albumin 1.3L, Globulin 4.9, Albumin/Globulin Ratio 0.3L, Amylase Level 137H, Lipase 937H Height (Feet): 6 Height (Inches): 0.00 Weight (Pounds): 167 General Appearance: no apparent distress EENT: other - Has NG tube now Respiratory/Chest: decreased breath sounds Abdomen: soft Objective No change Zander Razo MD Jul 17, 2019 11:07
[2019-07-17] MEDS: Sodium Citrate 30ml NG SCH ×2 (11:25→17:18)
[2019-07-17 11:43] LABS: PHOSPHORUS 3.8 MG/DL (2.5-4.9)
[2019-07-17 12:00] VITALS: BP 136/74
--- NOTE | 2019-07-17 12:12 | General Progress Note ---
Assessment/Plan Assessment/Plan: (1) HIV (2) Sacral Decubitus ulcer (3) Altered mental status Patient will be continued on [place] as needed. D/w Dr. Mendoza and he concurred. Subjective Date patient seen: Jul 17, 2019 Time patient seen: 11:30 - am ROS Limited/Unobtainable: Yes Allergies: Coded Allergies: No Known Allergies (Unverified , 03/02/19) Subjective No changes and no signs of pain or distress at this time. NG TUBE was placed Objective Last 24 Hour Vital Signs Date Time Temp Pulse Resp B/P (MAP) Pulse Ox O2 Delivery O2 Flow Rate FiO2 07/17/19 09:00 Room Air 07/17/19 08:00 96.9 81 22 130/68 (88) 97 07/17/19 04:00 98.4 100 20 117/63 (81) 96 07/17/19 00:00 98.4 98 24 128/64 (85) 97 07/16/19 21:16 Room Air 07/16/19 20:00 97.9 100 24 129/68 (88) 95 100 07/16/19 16:00 97.8 96 20 124/66 (85) 97 96 07/16/19 12:15 131/68 Intake and Output 07/16/19 07/17/19 19:00 07:00 Intake Total 935.0 ml 827.5 ml Output Total 600 ml Balance 335.0 ml 827.5 ml Free Water 200 ml IV Total 935.0 ml 27.5 ml Tube Feeding 600 ml Output Urine Total 600 ml Laboratory Tests 07/17/19 08:45: White Blood Count 16.8H, Red Blood Count 3.01L, Hemoglobin 8.0L, Hematocrit 24.0L, Mean Corpuscular Volume 80, Mean Corpuscular Hemoglobin 26.7L, Mean Corpuscular Hemoglobin Concent 33.6, Red Cell Distribution Width 17.9H, Platelet Count 90L, Mean Platelet Volume 8.9, Neutrophils (%) (Auto) , Lymphocytes (%) (Auto) , Monocytes (%) (Auto) , Eosinophils (%) (Auto) , Basophils (%) (Auto) , Differential Total Cells Counted 100, Neutrophils % ( Manual) 82H, Lymphocytes % (Manual) 12L, Monocytes % (Manual) 1, Eosinophils % ( Manual) 5H, Basophils % (Manual) 0, Band Neutrophils 0, Platelet Estimate DecreasedL, Platelet Morphology Normal, Hypochromasia 2+, Spherocytes 2+, Sodium Level 146H, Potassium Level 3.7, Chloride Level 115H, Carbon Dioxide Level 17L, Anion Gap 14, Blood Urea Nitrogen 31H, Creatinine 2.2H, Estimat Glomerular Filtration Rate 36.6, Glucose Level 104, Uric Acid 10.9H, Calcium Level 8.5, Phosphorus Level 3.8, Magnesium Level 1.7L, Total Bilirubin 0.4, Aspartate Amino Transf (AST/SGOT) 25, Alanine Aminotransferase (ALT/SGPT) 10L, Alkaline Phosphatase 144H, Total Protein 6.2L, Albumin 1.3L, Globulin 4.9, Albumin/Globulin Ratio 0.3L, Amylase Level 137H, Lipase 937H Height (Feet): 6 Height (Inches): 0.00 Weight (Pounds): 167 Objective General Appearance: no apparent distress EENT: PERRL/EOMI Neck: non-tender, normal alignment Cardiovascular: normal rate, regular rhythm Respiratory/Chest: decreased breath sounds Abdomen: non tender, soft Edema: mild edema Neurologic: responsive Rachid Hennessy Jul 17, 2019 12:12
[2019-07-17] MEDS: Nitroglycerin Patch 0.4mg TDERMAL SCH (12:55)
--- NOTE | 2019-07-17 13:09 | Pulmonology Progress Note ---
Assessment/Plan Problems: (1) Sepsis (2) Altered level of consciousness (3) COPD (chronic obstructive pulmonary disease) (4) Pancreatitis (5) Decubitus skin ulcer (6) Hypertension (7) BPH (benign prostatic hyperplasia) (8) HIV disease Assessment/Plan WBC still high H/H better absolute CD4 count noted mental status improved wound care iv abx adams culture, VRE positive, BC negative f/u amylase lipase swallow study pt refusing meds at times dvt prophylaxis. Subjective ROS Limited/Unobtainable: No Constitutional: Reports: no symptoms HEENT: Repors: no symptoms Allergies: Coded Allergies: No Known Allergies (Unverified , 03/02/19) Objective Last 24 Hour Vital Signs Date Time Temp Pulse Resp B/P (MAP) Pulse Ox O2 Delivery O2 Flow Rate FiO2 07/17/19 12:55 136/74 07/17/19 12:00 97.4 86 21 136/74 (94) 98 07/17/19 09:00 Room Air 07/17/19 08:00 96.9 81 22 130/68 (88) 97 07/17/19 04:00 98.4 100 20 117/63 (81) 96 07/17/19 00:00 98.4 98 24 128/64 (85) 97 07/16/19 21:16 Room Air 07/16/19 20:00 97.9 100 24 129/68 (88) 95 100 07/16/19 16:00 97.8 96 20 124/66 (85) 97 96 Intake and Output 07/16/19 07/17/19 19:00 07:00 Intake Total 935.0 ml 827.5 ml Output Total 600 ml Balance 335.0 ml 827.5 ml Free Water 200 ml IV Total 935.0 ml 27.5 ml Tube Feeding 600 ml Output Urine Total 600 ml Objective General Appearance: cachectic HEENT: normocephalic Respiratory/Chest: chest wall non-tender, lungs clear Cardiovascular: normal rate, regular rhythm Abdomen: normal bowel sounds, no organomegaly Extremities: no cyanosis Bed bound Microbiology Date/Time Source Procedure Growth Status 07/15/19 14:50 Blood Blood Culture - Preliminary NO GROWTH AFTER 24 HOURS Resulted 07/15/19 14:45 Blood Blood Culture - Preliminary NO GROWTH AFTER 24 HOURS Resulted 07/15/19 14:40 Indwelling Cath Urine Culture - Preliminary YEAST Resulted Laboratory Tests 07/17/19 08:45: White Blood Count 16.8H, Red Blood Count 3.01L, Hemoglobin 8.0L, Hematocrit 24.0L, Mean Corpuscular Volume 80, Mean Corpuscular Hemoglobin 26.7L, Mean Corpuscular Hemoglobin Concent 33.6, Red Cell Distribution Width 17.9H, Platelet Count 90L, Mean Platelet Volume 8.9, Neutrophils (%) (Auto) , Lymphocytes (%) (Auto) , Monocytes (%) (Auto) , Eosinophils (%) (Auto) , Basophils (%) (Auto) , Differential Total Cells Counted 100, Neutrophils % ( Manual) 82H, Lymphocytes % (Manual) 12L, Monocytes % (Manual) 1, Eosinophils % ( Manual) 5H, Basophils % (Manual) 0, Band Neutrophils 0, Platelet Estimate DecreasedL, Platelet Morphology Normal, Hypochromasia 2+, Spherocytes 2+, Sodium Level 146H, Potassium Level 3.7, Chloride Level 115H, Carbon Dioxide Level 17L, Anion Gap 14, Blood Urea Nitrogen 31H, Creatinine 2.2H, Estimat Glomerular Filtration Rate 36.6, Glucose Level 104, Uric Acid 10.9H, Calcium Level 8.5, Phosphorus Level 3.8, Magnesium Level 1.7L, Total Bilirubin 0.4, Aspartate Amino Transf (AST/SGOT) 25, Alanine Aminotransferase (ALT/SGPT) 10L, Alkaline Phosphatase 144H, Total Protein 6.2L, Albumin 1.3L, Globulin 4.9, Albumin/Globulin Ratio 0.3L, Amylase Level 137H, Lipase 937H Current Medications Medications (Trade) Dose Ordered Sig/Deborah Route PRN Reason Start Time Stop Time Status Last Admin Dose Admin Acetaminophen (Tylenol) 650 mg Q4H PRN ORAL fever 07/08/19 19:45 08/07/19 19:44 Acetaminophen/ Hydrocodone Bitart ([place] 5/325) 0.5 tab Q4H PRN ORAL Severe Pain (Pain Scale 7-10) 07/11/19 15:45 07/18/19 15:44 Allopurinol (allopurinoL) 300 mg DAILY ORAL 07/14/19 09:00 08/13/19 08:59 07/17/19 08:15 Ascorbic Acid (Vitamin C) 500 mg TWICE A DAY ORAL 07/10/19 18:00 08/09/19 17:59 07/17/19 08:15 Barium Sulfate (Readi-Cat 2) 450 ml NOW PRN ORAL Radiology Procedure 07/17/19 11:00 07/19/19 10:47 Barium Sulfate (Readi-Cat 2) 450 ml NOW PRN ORAL Radiology Procedure 07/17/19 11:00 07/19/19 10:48 Ceftriaxone Sodium 1 gm/ Dextrose 55 ml @ 110 mls/hr Q24H IVPB 07/16/19 19:15 07/23/19 19:14 07/16/19 20:33 Chlorhexidine Gluconate (Leslie-Hex 2%) 1 applic DAILY@2000 TOPIC 07/12/19 20:00 10/10/19 19:59 07/16/19 20:33 Dextrose 1,000 ml @ 75 mls/hr [id number] IV 07/17/19 11:15 08/16/19 11:14 07/17/19 11:25 Dextrose (Dextrose 50%) 25 ml Q30M PRN IV Hypoglycemia 07/13/19 14:00 10/11/19 13:59 07/15/19 21:31 Dextrose (Dextrose 50%) 50 ml Q30M PRN IV Hypoglycemia 07/13/19 14:00 10/11/19 13:59 07/14/19 11:33 Hydralazine HCl (Apresoline) 25 mg Q4HR PRN ORAL BP over 160 systolic 07/09/19 14:45 10/07/19 14:44 07/11/19 17:19 Insulin Aspart (NovoLOG) BEFORE MEALS AND HS SUBQ 07/13/19 16:30 10/11/19 16:29 Iohexol (OMNIPAQUE-300 100ml) 100 ml NOW PRN INJ Radiology Procedure 07/17/19 11:00 07/19/19 10:47 Linaclotide (Linzess) 288 mcg BEFORE BREAKFAST ORAL 07/17/19 06:30 10/15/19 06:29 Nitroglycerin (Ntg) 0.4 mg Q5M PRN SL Prn Chest Pain 07/08/19 19:45 08/07/19 19:44 Nitroglycerin (Ntg) 1 patch Q24H TDERMAL 07/10/19 13:00 08/09/19 12:59 07/17/19 12:55 Ondansetron HCl (Zofran) 4 mg Q6H PRN IVP Nausea & Vomiting 07/08/19 19:45 08/07/19 19:44 Pantoprazole (Protonix) 40 mg EVERY 12 HOURS IVP 07/16/19 21:00 08/15/19 20:59 07/17/19 08:15 Piperacillin Sod/ Tazobactam Sod 3.375 gm/Sodium Chloride 110 ml @ 27.5 mls/hr EVERY 8 HOURS IVPB 07/15/19 14:00 07/20/19 13:59 07/17/19 12:56 Polyethylene Glycol (Miralax) 17 gm DAILYPRN PRN ORAL Constipation 07/08/19 19:45 08/07/19 19:44 Sodium Citrate (Bicitra) 30 ml EVERY 6 HOURS NG 07/17/19 12:00 08/16/19 11:59 07/17/19 11:25 Tamsulosin HCl (Flomax) 0.4 mg BID ORAL 07/09/19 09:00 08/08/19 08:59 07/17/19 08:15 Trimethoprim/ Sulfamethoxazole (Bactrim Single Strength) 1 tab DAILY ORAL 07/13/19 09:00 07/20/19 08:59 07/17/19 08:15 Zinc Sulfate (Zinc Sulfate) 220 mg DAILY ORAL 07/11/19 09:00 07/21/19 08:59 07/17/19 08:15 Rico Chavarria MD Jul 17, 2019 13:09
[2019-07-17 16:00] VITALS: BP 125/76
--- NOTE | 2019-07-17 16:23 | Infectious Diseases Prog Note ---
Assessment/Plan Assessment/Plan 63yo man admitted with abdominal pain and diarrhea. Afebrile Leukocytosis ( Ch, doubt ID related ) ; fluctuating ? ALOC, fluctuating probable UTI 07/14 UA positive, UCx: P Hx of Diarrhea/colitis- 03/02 CT: Suspected colitis with the thickening of the wall the colon. Correlate clinically. Thickening of the wall the urinary bladder. Correlate for cystitis. C diff negative x2 stool cx negative stool o/p x1 negative -Negative: E. histolytica ab, Echinococcus ab pt has refused colonoscopy in the past HIV Screen positive- new diagnosis in February 2019 HIV-1 Abt positive. 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 03/04/19 CD4 180 (7.2%) 06/2009 CD4 143 RPR negative no evid of biliary - US : Mild intrahepatic biliary ductal dilatation. MRI of brain ( could not be done ) COPD. Hypertension. BPH. History of cocaine abuse in the past. Bedbound. PLAN: Ceftriaxone #2, f/u ucx pt is refusing meds from time time making HIV Rx difficult on Bactrim SS for PCP PPx 07/12 SP IV Vanco and Cefepime # 4/5 monitor CBC, temp pt must follow up with PMD/HIV specialist once discharged HIV Genotype DW RN Subjective Allergies: Coded Allergies: No Known Allergies (Unverified , 03/02/19) Subjective Afebrile. RA. Fluctuating leukocytosis. Somnolent Objective Vital Signs Last 24 Hour Vital Signs Date Time Temp Pulse Resp B/P (MAP) Pulse Ox O2 Delivery O2 Flow Rate FiO2 07/17/19 12:55 136/74 07/17/19 12:00 97.4 86 21 136/74 (94) 98 07/17/19 09:00 Room Air 07/17/19 08:00 96.9 81 22 130/68 (88) 97 07/17/19 04:00 98.4 100 20 117/63 (81) 96 07/17/19 00:00 98.4 98 24 128/64 (85) 97 07/16/19 21:16 Room Air 07/16/19 20:00 97.9 100 24 129/68 (88) 95 100 Height (Feet): 6 Height (Inches): 0.00 Weight (Pounds): 167 Objective Gen: NAD HEENT: NGT CV: RRR Resp: coarse. regular. equal chest rise Abd: soft. Neuro: somnolent. not answering questions Microbiology Date/Time Source Procedure Growth Status 07/15/19 14:50 Blood Blood Culture - Preliminary NO GROWTH AFTER 24 HOURS Resulted 07/15/19 14:45 Blood Blood Culture - Preliminary NO GROWTH AFTER 24 HOURS Resulted 07/15/19 14:40 Indwelling Cath Urine Culture - Preliminary YEAST Resulted Laboratory Tests Test 07/17/19 08:45 White Blood Count 16.8 K/UL (4.8-10.8) H Red Blood Count 3.01 M/UL (4.70-6.10) L Hemoglobin 8.0 G/DL (14.2-18.0) L Hematocrit 24.0 % (42.0-52.0) L Mean Corpuscular Volume 80 FL (80-99) Mean Corpuscular Hemoglobin 26.7 PG (27.0-31.0) L Mean Corpuscular Hemoglobin Concent 33.6 G/DL (32.0-36.0) Red Cell Distribution Width 17.9 % (11.6-14.8) H Platelet Count 90 K/UL (150-450) L Mean Platelet Volume 8.9 FL (6.5-10.1) Neutrophils (%) (Auto) % (45.0-75.0) Lymphocytes (%) (Auto) % (20.0-45.0) Monocytes (%) (Auto) % (1.0-10.0) Eosinophils (%) (Auto) % (0.0-3.0) Basophils (%) (Auto) % (0.0-2.0) Differential Total Cells Counted 100 Neutrophils % (Manual) 82 % (45-75) H Lymphocytes % (Manual) 12 % (20-45) L Monocytes % (Manual) 1 % (1-10) Eosinophils % (Manual) 5 % (0-3) H Basophils % (Manual) 0 % (0-2) Band Neutrophils 0 % (0-8) Platelet Estimate Decreased L Platelet Morphology Normal Hypochromasia 2+ Spherocytes 2+ Sodium Level 146 MMOL/L (136-145) H Potassium Level 3.7 MMOL/L (3.5-5.1) Chloride Level 115 MMOL/L (98-107) H Carbon Dioxide Level 17 MMOL/L (21-32) L Anion Gap 14 mmol/L (5-15) Blood Urea Nitrogen 31 mg/dL (7-18) H Creatinine 2.2 MG/DL (0.55-1.30) H Estimat Glomerular Filtration Rate 36.6 mL/min (>60) Glucose Level 104 MG/DL (74-106) Uric Acid 10.9 MG/DL (2.6-7.2) H Calcium Level 8.5 MG/DL (8.5-10.1) Phosphorus Level 3.8 MG/DL (2.5-4.9) Magnesium Level 1.7 MG/DL (1.8-2.4) L Total Bilirubin 0.4 MG/DL (0.2-1.0) Aspartate Amino Transf (AST/SGOT) 25 U/L (15-37) Alanine Aminotransferase (ALT/SGPT) 10 U/L (12-78) L Alkaline Phosphatase 144 U/L (46-116) H Total Protein 6.2 G/DL (6.4-8.2) L Albumin 1.3 G/DL (3.4-5.0) L Globulin 4.9 g/dL Albumin/Globulin Ratio 0.3 (1.0-2.7) L Amylase Level 137 U/L (25-115) H Lipase 937 U/L (73-393) H Current Medications Medications (Trade) Dose Ordered Sig/Deborah Route PRN Reason Start Time Stop Time Status Last Admin Dose Admin Acetaminophen (Tylenol) 650 mg Q4H PRN ORAL fever 07/08/19 19:45 08/07/19 19:44 Acetaminophen/ Hydrocodone Bitart ([place] 5/325) 0.5 tab Q4H PRN ORAL Severe Pain (Pain Scale 7-10) 07/11/19 15:45 07/18/19 15:44 Allopurinol (allopurinoL) 300 mg DAILY ORAL 07/14/19 09:00 08/13/19 08:59 07/17/19 08:15 Ascorbic Acid (Vitamin C) 500 mg TWICE A DAY ORAL 07/10/19 18:00 08/09/19 17:59 07/17/19 08:15 Barium Sulfate (Readi-Cat 2) 450 ml NOW PRN ORAL Radiology Procedure 07/17/19 11:00 07/19/19 10:47 Barium Sulfate (Readi-Cat 2) 450 ml NOW PRN ORAL Radiology Procedure 07/17/19 11:00 07/19/19 10:48 Ceftriaxone Sodium 1 gm/ Dextrose 55 ml @ 110 mls/hr Q24H IVPB 07/16/19 19:15 07/23/19 19:14 07/16/19 20:33 Chlorhexidine Gluconate (Leslie-Hex 2%) 1 applic DAILY@2000 TOPIC 07/12/19 20:00 10/10/19 19:59 07/16/19 20:33 Dextrose 1,000 ml @ 75 mls/hr [id number] IV 07/17/19 11:15 08/16/19 11:14 07/17/19 11:25 Dextrose (Dextrose 50%) 25 ml Q30M PRN IV Hypoglycemia 07/13/19 14:00 10/11/19 13:59 07/15/19 21:31 Dextrose (Dextrose 50%) 50 ml Q30M PRN IV Hypoglycemia 07/13/19 14:00 10/11/19 13:59 07/14/19 11:33 Hydralazine HCl (Apresoline) 25 mg Q4HR PRN ORAL BP over 160 systolic 07/09/19 14:45 10/07/19 14:44 07/11/19 17:19 Insulin Aspart (NovoLOG) BEFORE MEALS AND HS SUBQ 07/13/19 16:30 10/11/19 16:29 Iohexol (OMNIPAQUE-300 100ml) 100 ml NOW PRN INJ Radiology Procedure 07/17/19 11:00 07/19/19 10:47 Linaclotide (Linzess) 288 mcg BEFORE BREAKFAST ORAL 07/17/19 06:30 10/15/19 06:29 Nitroglycerin (Ntg) 0.4 mg Q5M PRN SL Prn Chest Pain 07/08/19 19:45 08/07/19 19:44 Nitroglycerin (Ntg) 1 patch Q24H TDERMAL 07/10/19 13:00 08/09/19 12:59 07/17/19 12:55 Ondansetron HCl (Zofran) 4 mg Q6H PRN IVP Nausea & Vomiting 07/08/19 19:45 08/07/19 19:44 Pantoprazole (Protonix) 40 mg EVERY 12 HOURS IVP 07/16/19 21:00 08/15/19 20:59 07/17/19 08:15 Polyethylene Glycol (Miralax) 17 gm DAILYPRN PRN ORAL Constipation 07/08/19 19:45 08/07/19 19:44 Sodium Citrate (Bicitra) 30 ml EVERY 6 HOURS NG 07/17/19 12:00 08/16/19 11:59 07/17/19 11:25 Tamsulosin HCl (Flomax) 0.4 mg BID ORAL 07/09/19 09:00 08/08/19 08:59 07/17/19 08:15 Trimethoprim/ Sulfamethoxazole (Bactrim Single Strength) 1 tab DAILY ORAL 07/13/19 09:00 07/20/19 08:59 07/17/19 08:15 Zinc Sulfate (Zinc Sulfate) 220 mg DAILY ORAL 07/11/19 09:00 07/21/19 08:59 07/17/19 08:15 Olegario Carroll MD Jul 17, 2019 16:23
[2019-07-17] MEDS: cefTRIAXone 1 GM in D5W 55 ML IVPB SCH (18:26)
[2019-07-17] MEDS: Dyna-Hex 2% Top Sol 2oz TOPIC SCH (19:47)
[2019-07-17 20:00] VITALS: BP 100/59
[2019-07-18] VITALS: BP 124/66
[2019-07-18] MEDS: Sodium Citrate 30ml NG SCH ×4 (00:03→18:04)
[2019-07-18 04:00] VITALS: BP 126/71
[2019-07-18] MEDS: NovoLOG Insulin Flexpen SUBQ SCH ×4 (06:13→21:00)
[2019-07-18] MEDS: Linaclotide 72mcg ORAL SCH (06:15)
[2019-07-18 06:40] LABS: HEMATOCRIT 21.1 % (42.0-52.0); MEAN CORPUSCULAR VOLUME 81 FL (80-99); PLATELET COUNT 90 K/UL (150-450); RED BLOOD COUNT 2.62 M/UL (4.70-6.10); RED CELL DISTRIBUTION WIDTH 18.5 % (11.6-14.8); WHITE BLOOD COUNT 14.4 K/UL (4.8-10.8)
[2019-07-18 07:20] LABS: ALANINE AMINOTRANSFERASE 11 U/L (12-78); ALBUMIN 1.2 G/DL (3.4-5.0); ALBUMIN/GLOBULIN RATIO 0.3 (1.0-2.7); ALKALINE PHOSPHATASE 154 U/L (46-116); AMYLASE 153 U/L (25-115); ANION GAP 14 mmol/L (5-15); ASPARTATE AMINO TRANSFERASE 30 U/L (15-37); BILIRUBIN,TOTAL 0.3 MG/DL (0.2-1.0); BLOOD UREA NITROGEN 31 mg/dL (7-18); CALCIUM 8.4 MG/DL (8.5-10.1); CARBON DIOXIDE 17 MMOL/L (21-32); CHLORIDE 118 MMOL/L (98-107); CREATININE 2.1 MG/DL (0.55-1.30); POTASSIUM 4.1 MMOL/L (3.5-5.1); SODIUM 149 MMOL/L (136-145)
--- NOTE | 2019-07-18 07:47 | General Progress Note ---
Assessment/Plan Assessment/Plan: 1. History of HIV. 2.thrombocytopenia 3. Anemia. 4. Sepsis. 5. UTIs with MRSA. 6. Hypertension. 7. COPD. 8. BPH. 9. Sacral decubital ulcerations, stage III. 10. Malnutrition. 11. pancreatitis 12. Dilated IHD CT of abd and pelvic>>>still pending repeat labs in am NGTF for now but may need PEG when more stable drop in H&H without active bleed>>> repeat cbc and transfuse to keep hgb above 7 off heparin given thrombocytopenia Subjective ROS Limited/Unobtainable: No Allergies: Coded Allergies: No Known Allergies (Unverified , 03/02/19) Objective Last 24 Hour Vital Signs Date Time Temp Pulse Resp B/P (MAP) Pulse Ox O2 Delivery O2 Flow Rate FiO2 07/18/19 04:00 98.5 100 24 126/71 (89) 94 07/18/19 00:00 98.3 99 22 124/66 (85) 97 07/17/19 21:03 Room Air 07/17/19 20:00 98.6 104 19 100/59 (73) 94 07/17/19 16:00 97.5 83 20 125/76 (92) 97 07/17/19 12:55 136/74 07/17/19 12:00 97.4 86 21 136/74 (94) 98 07/17/19 09:00 Room Air 07/17/19 08:00 96.9 81 22 130/68 (88) 97 Intake and Output 07/17/19 07/18/19 19:00 07:00 Intake Total 1152.5 ml 580 ml Balance 1152.5 ml 580 ml Free Water 180 ml 100 ml IV Total 552.5 ml Tube Feeding 420 ml 480 ml Laboratory Tests 07/17/19 08:45: White Blood Count 16.8H, Red Blood Count 3.01L, Hemoglobin 8.0L, Hematocrit 24.0L, Mean Corpuscular Volume 80, Mean Corpuscular Hemoglobin 26.7L, Mean Corpuscular Hemoglobin Concent 33.6, Red Cell Distribution Width 17.9H, Platelet Count 90L, Mean Platelet Volume 8.9, Neutrophils (%) (Auto) , Lymphocytes (%) (Auto) , Monocytes (%) (Auto) , Eosinophils (%) (Auto) , Basophils (%) (Auto) , Differential Total Cells Counted 100, Neutrophils % ( Manual) 82H, Lymphocytes % (Manual) 12L, Monocytes % (Manual) 1, Eosinophils % ( Manual) 5H, Basophils % (Manual) 0, Band Neutrophils 0, Platelet Estimate DecreasedL, Platelet Morphology Normal, Hypochromasia 2+, Spherocytes 2+, Sodium Level 146H, Potassium Level 3.7, Chloride Level 115H, Carbon Dioxide Level 17L, Anion Gap 14, Blood Urea Nitrogen 31H, Creatinine 2.2H, Estimat Glomerular Filtration Rate 36.6, Glucose Level 104, Uric Acid 10.9H, Calcium Level 8.5, Phosphorus Level 3.8, Magnesium Level 1.7L, Total Bilirubin 0.4, Aspartate Amino Transf (AST/SGOT) 25, Alanine Aminotransferase (ALT/SGPT) 10L, Alkaline Phosphatase 144H, Total Protein 6.2L, Albumin 1.3L, Globulin 4.9, Albumin/Globulin Ratio 0.3L, Amylase Level 137H, Lipase 937H 07/18/19 06:22: White Blood Count 14.4H, Red Blood Count 2.62L, Hemoglobin 7.0L, Hematocrit 21.1L, Mean Corpuscular Volume 81, Mean Corpuscular Hemoglobin 26.7L, Mean Corpuscular Hemoglobin Concent 33.1, Red Cell Distribution Width 18.5H, Platelet Count 90L, Mean Platelet Volume 9.1, Neutrophils (%) (Auto) , Lymphocytes (%) (Auto) , Monocytes (%) (Auto) , Eosinophils (%) (Auto) , Basophils (%) (Auto) , Neutrophils % (Manual) [Pending], Lymphocytes % (Manual) [Pending], Platelet Estimate [Pending], Platelet Morphology [Pending], Sodium Level 149H, Potassium Level 4.1, Chloride Level 118H, Carbon Dioxide Level 17L, Anion Gap 14, Blood Urea Nitrogen 31H, Creatinine 2.1H, Estimat Glomerular Filtration Rate 38.7, Glucose Level 100, Uric Acid [Pending], Calcium Level 8.4L , Total Bilirubin 0.3, Aspartate Amino Transf (AST/SGOT) 30, Alanine Aminotransferase (ALT/SGPT) 11L, Alkaline Phosphatase 154H, Total Protein 5.8L, Albumin 1.2L, Globulin 4.6, Albumin/Globulin Ratio 0.3L, Amylase Level 153H, Lipase 1115H Height (Feet): 6 Height (Inches): 0.00 Weight (Pounds): 167 General Appearance: lethargic EENT: normal ENT inspection Neck: supple Cardiovascular: tachycardia Respiratory/Chest: respiratory distress, decreased breath sounds Abdomen: normal bowel sounds, non tender, soft Extremities: non-tender Mansoor Interiano MD Jul 18, 2019 07:47
[2019-07-18 08:00] VITALS: BP 158/85
[2019-07-18] MEDS: Bactrim SS Tab ORAL SCH (08:25)
[2019-07-18] MEDS: Zinc Sulfate 220mg cap ORAL SCH (08:25)
[2019-07-18] MEDS: Ascorbic Acid 500mg tab ORAL SCH (08:25)
[2019-07-18] MEDS: Pantoprazole Inj IVP SCH (08:25)
[2019-07-18] MEDS: Tamsulosin 0.4mg cap ORAL SCH (08:25)
[2019-07-18] MEDS: HydrALAZINE 25mg tab ORAL PRN (08:31)
--- NOTE | 2019-07-18 10:45 | Nephrology Progress Note ---
Assessment/Plan Problem List: (1) Pancreatitis (2) Hypothermia (3) Hypertension (4) COPD (chronic obstructive pulmonary disease) (5) BPH (benign prostatic hyperplasia) (6) HIV disease (7) Anemia Assessment Acute renal failure, partly dehydration Anemia Hypoalbuminemia High lipase level of 1999, Pancreatitis UTI Hypothermia Toxic metabolic encephalopathy Sepsis Decubitus skin ulcer Hypothyroid Plan Will discontinue IV fluids Trial of albumin and Lasix Patient has Macario catheter so will discontinue Flomax Suggested blood transfusion for low hemoglobin Add Coreg Remains full code Today's labs were reviewed Previously ; patient refusing most of his oral medications, however now has NG tube Will attempt to discontinue what can be changing to intravenous from p.o. and or NG tube route magnesium sulfate and potassium as needed 24-hour urine measurement for total protein results noted unremarkable Add allopurinol 2D echocardiogram results suggestive of ejection fraction of 50% Kidney ultrasound unremarkable Urine studies Anemia work-up noted Monitor renal parameters Antibiotics Avoid nephrotoxic's Per orders Subjective ROS Limited/Unobtainable: Yes Objective Objective Last 24 Hour Vital Signs Date Time Temp Pulse Resp B/P (MAP) Pulse Ox O2 Delivery O2 Flow Rate FiO2 07/18/19 09:00 Room Air 07/18/19 08:31 158/85 07/18/19 08:00 98.4 111 22 158/85 (109) 95 07/18/19 04:00 98.5 100 24 126/71 (89) 94 07/18/19 00:00 98.3 99 22 124/66 (85) 97 07/17/19 21:03 Room Air 07/17/19 20:00 98.6 104 19 100/59 (73) 94 07/17/19 16:00 97.5 83 20 125/76 (92) 97 07/17/19 12:55 136/74 07/17/19 12:00 97.4 86 21 136/74 (94) 98 Intake and Output 07/17/19 07/18/19 19:00 07:00 Intake Total 1152.5 ml 655 ml Balance 1152.5 ml 655 ml Free Water 180 ml 100 ml IV Total 552.5 ml 75 ml Tube Feeding 420 ml 480 ml Laboratory Tests 07/18/19 06:22: White Blood Count 14.4H, Red Blood Count 2.62L, Hemoglobin 7.0L, Hematocrit 21.1L, Mean Corpuscular Volume 81, Mean Corpuscular Hemoglobin 26.7L, Mean Corpuscular Hemoglobin Concent 33.1, Red Cell Distribution Width 18.5H, Platelet Count 90L, Mean Platelet Volume 9.1, Neutrophils (%) (Auto) , Lymphocytes (%) (Auto) , Monocytes (%) (Auto) , Eosinophils (%) (Auto) , Basophils (%) (Auto) , Differential Total Cells Counted 100, Neutrophils % ( Manual) 53, Lymphocytes % (Manual) 35, Monocytes % (Manual) 7, Eosinophils % ( Manual) 5H, Basophils % (Manual) 0, Band Neutrophils 0, Platelet Estimate DecreasedL, Platelet Morphology Normal, Hypochromasia 3+, Anisocytosis 2+, Sodium Level 149H, Potassium Level 4.1, Chloride Level 118H, Carbon Dioxide Level 17L, Anion Gap 14, Blood Urea Nitrogen 31H, Creatinine 2.1H, Estimat Glomerular Filtration Rate 38.7, Glucose Level 100, Uric Acid 9.3H, Calcium Level 8.4L, Total Bilirubin 0.3, Aspartate Amino Transf (AST/SGOT) 30, Alanine Aminotransferase (ALT/SGPT) 11L, Alkaline Phosphatase 154H, Total Protein 5.8L, Albumin 1.2L, Globulin 4.6, Albumin/Globulin Ratio 0.3L, Amylase Level 153H, Lipase 1115H Height (Feet): 6 Height (Inches): 0.00 Weight (Pounds): 167 General Appearance: no apparent distress, other - Poorly responsive EENT: other - NG tube in place Cardiovascular: tachycardia Abdomen: distended Extremities: other - Swollen extremities Objective No change Zander Razo MD Jul 18, 2019 10:45
--- NOTE | 2019-07-18 10:51 | General Progress Note ---
Assessment/Plan Assessment/Plan: (1) HIV (2) Sacral Decubitus ulcer (3) Altered mental status Patient will be continued on [place] as needed. D/w Dr. Mendoza and he concurred. Subjective Date patient seen: Jul 19, 2019 Time patient seen: 10:15 - am ROS Limited/Unobtainable: Yes Allergies: Coded Allergies: No Known Allergies (Unverified , 03/02/19) Subjective In bed no signs of pain or distress. Objective Last 24 Hour Vital Signs Date Time Temp Pulse Resp B/P (MAP) Pulse Ox O2 Delivery O2 Flow Rate FiO2 07/18/19 09:00 Room Air 07/18/19 08:31 158/85 07/18/19 08:00 98.4 111 22 158/85 (109) 95 07/18/19 04:00 98.5 100 24 126/71 (89) 94 07/18/19 00:00 98.3 99 22 124/66 (85) 97 07/17/19 21:03 Room Air 07/17/19 20:00 98.6 104 19 100/59 (73) 94 07/17/19 16:00 97.5 83 20 125/76 (92) 97 07/17/19 12:55 136/74 07/17/19 12:00 97.4 86 21 136/74 (94) 98 Intake and Output 07/17/19 07/18/19 18:59 06:59 Intake Total 1180.0 ml 640 ml Balance 1180.0 ml 640 ml Free Water 180 ml 100 ml IV Total 580.0 ml Tube Feeding 420 ml 540 ml Laboratory Tests 07/18/19 06:22: White Blood Count 14.4H, Red Blood Count 2.62L, Hemoglobin 7.0L, Hematocrit 21.1L, Mean Corpuscular Volume 81, Mean Corpuscular Hemoglobin 26.7L, Mean Corpuscular Hemoglobin Concent 33.1, Red Cell Distribution Width 18.5H, Platelet Count 90L, Mean Platelet Volume 9.1, Neutrophils (%) (Auto) , Lymphocytes (%) (Auto) , Monocytes (%) (Auto) , Eosinophils (%) (Auto) , Basophils (%) (Auto) , Differential Total Cells Counted 100, Neutrophils % ( Manual) 53, Lymphocytes % (Manual) 35, Monocytes % (Manual) 7, Eosinophils % ( Manual) 5H, Basophils % (Manual) 0, Band Neutrophils 0, Platelet Estimate DecreasedL, Platelet Morphology Normal, Hypochromasia 3+, Anisocytosis 2+, Sodium Level 149H, Potassium Level 4.1, Chloride Level 118H, Carbon Dioxide Level 17L, Anion Gap 14, Blood Urea Nitrogen 31H, Creatinine 2.1H, Estimat Glomerular Filtration Rate 38.7, Glucose Level 100, Uric Acid 9.3H, Calcium Level 8.4L, Total Bilirubin 0.3, Aspartate Amino Transf (AST/SGOT) 30, Alanine Aminotransferase (ALT/SGPT) 11L, Alkaline Phosphatase 154H, Total Protein 5.8L, Albumin 1.2L, Globulin 4.6, Albumin/Globulin Ratio 0.3L, Amylase Level 153H, Lipase 1115H Height (Feet): 6 Height (Inches): 0.00 Weight (Pounds): 167 General Appearance: no apparent distress EENT: normal ENT inspection Neck: non-tender Cardiovascular: normal rate, regular rhythm Respiratory/Chest: decreased breath sounds Abdomen: soft Edema: mild edema Neurologic: alert Rachid Hennessy Jul 18, 2019 10:51
--- NOTE | 2019-07-18 11:41 | Diagnostic Imaging Report ---
Indication: Abdominal pain Technique: Spiral acquisitions obtained through the abdomen and pelvis. Patient ingested oral contrast. No IV contrast utilized, per referring physician request.. Multiplanar reconstructions were generated. Total dose length product 245 mGycm. CTDIvol(s) 4 mGy. Dose reduction achieved using automated exposure control Comparison: 03/02/2019. Reference also made to recent abdominal sonogram dated 07/08/2019 Findings: Exam is somewhat limited, as diffuse anasarca limits inherent soft tissue contrast. No evidence of colonic diverticulosis or diverticulitis. No small bowel distention or small bowel wall thickening. Ingested contrast has traversed the entirety of the GI tract and in fact there is evidence of fecal incontinence. There is a nasogastric tube in place, which is coiled within the gastric body, position satisfactory. There is trace free intraperitoneal fluid seen within the pelvis. No evidence of colonic diverticulosis or diverticulitis. The appendix is not definitely visualized, but no findings to suggest acute appendicitis are evident. Previously demonstrated colon wall thickening is not evident on the current exam. Lack of IV contrast limits assessment of the solid organs.. Previously suggested gallstones are not evident on this study, and were not evident on recent sonogram. The liver, bile ducts, pancreas, spleen, adrenals, kidneys are all unremarkable. The bladder contains a Macario catheter. There is some urine within the bladder lumen despite the presence of the Macario catheter. Gas within the bladder lumen likely relates to the Macario catheterization. There is mild bladder wall thickening. The prostate is unremarkable. As mentioned above, there is anasarca, with diffuse and extensive edema of the subcutaneous fat as well as the abdominal and retroperitoneal fat. The included lung bases demonstrate bilateral pleural effusions. These result in compressive atelectatic changes at both lung bases. There is evidence of scarring and bullous changes on the right as well as generalized hyperinflation. Previously demonstrated pericardial fluid is not evident currently. Hazy parenchymal opacity is seen bilaterally in a somewhat mosaic distribution. Some scarring and atelectasis is also seen on the left. The bones demonstrate severe degenerative changes of both hips, also evident previously. Impression: Anasarca, with severe edema of the subcutaneous fat, abdominal retroperitoneal fat. There is also trace intraperitoneal fluid and bilateral pleural effusions. No definite acute abdominal process otherwise. No evidence of bowel obstruction Evidence of rectal fecal incontinence Nasogastric tube in good position Retained urine within the bladder lumen, despite the presence of a Macario catheter. Mild bladder wall thickening. Indicate cystitis. Correlate with clinical laboratory findings Bilateral pleural effusions, as mentioned earlier. Resultant compressive atelectatic changes at both lung bases. Evidence of bullous COPD. Hazy parenchymal opacity may be related to COPD, but could also indicate mild pulmonary edema given other findings of anasarca Severe bilateral hip degenerative changes, also previously demonstrated. The CT scanner at [facility] is accredited by the [employer] and the scans are performed using protocols designed to limit radiation exposure to as low as reasonably achievable to attain images of sufficient resolution adequate for diagnostic evaluation.
[2019-07-18] MEDS: Carvedilol 6.25mg Tab NG SCH ×2 (11:42→21:09)
[2019-07-18 12:00] VITALS: BP 138/68
[2019-07-18] MEDS: Nitroglycerin Patch 0.4mg TDERMAL SCH (12:53)
--- NOTE | 2019-07-18 13:46 | Pulmonology Progress Note ---
Assessment/Plan Problems: (1) Sepsis (2) Altered level of consciousness (3) COPD (chronic obstructive pulmonary disease) (4) Pancreatitis (5) Decubitus skin ulcer (6) Hypertension (7) BPH (benign prostatic hyperplasia) (8) HIV disease Assessment/Plan WBC still high H/H lower, will order prbc absolute CD4 count noted mental status improved wound care iv abx adams culture, VRE positive, BC negative f/u amylase lipase swallow study pt refusing meds at times dvt prophylaxis. Subjective ROS Limited/Unobtainable: No Allergies: Coded Allergies: No Known Allergies (Unverified , 03/02/19) Objective Last 24 Hour Vital Signs Date Time Temp Pulse Resp B/P (MAP) Pulse Ox O2 Delivery O2 Flow Rate FiO2 07/18/19 12:53 138/68 07/18/19 12:00 98.1 110 20 138/68 (91) 94 07/18/19 11:42 110 138/68 07/18/19 09:00 Room Air 07/18/19 08:31 158/85 07/18/19 08:00 98.4 111 22 158/85 (109) 95 07/18/19 04:00 98.5 100 24 126/71 (89) 94 07/18/19 00:00 98.3 99 22 124/66 (85) 97 07/17/19 21:03 Room Air 07/17/19 20:00 98.6 104 19 100/59 (73) 94 07/17/19 16:00 97.5 83 20 125/76 (92) 97 Intake and Output 07/17/19 07/18/19 19:00 07:00 Intake Total 1152.5 ml 655 ml Balance 1152.5 ml 655 ml Free Water 180 ml 100 ml IV Total 552.5 ml 75 ml Tube Feeding 420 ml 480 ml Objective General Appearance: cachectic HEENT: normocephalic Respiratory/Chest: chest wall non-tender, lungs clear Cardiovascular: normal rate, regular rhythm Abdomen: normal bowel sounds, no organomegaly Extremities: no cyanosis Bed bound Microbiology Date/Time Source Procedure Growth Status 07/15/19 14:50 Blood Blood Culture - Preliminary NO GROWTH AFTER 48 HOURS Resulted 07/15/19 14:45 Blood Blood Culture - Preliminary NO GROWTH AFTER 48 HOURS Resulted 07/15/19 14:40 Indwelling Cath Urine Culture - Final Ilda Albicans Complete Laboratory Tests 07/18/19 06:22: White Blood Count 14.4H, Red Blood Count 2.62L, Hemoglobin 7.0L, Hematocrit 21.1L, Mean Corpuscular Volume 81, Mean Corpuscular Hemoglobin 26.7L, Mean Corpuscular Hemoglobin Concent 33.1, Red Cell Distribution Width 18.5H, Platelet Count 90L, Mean Platelet Volume 9.1, Neutrophils (%) (Auto) , Lymphocytes (%) (Auto) , Monocytes (%) (Auto) , Eosinophils (%) (Auto) , Basophils (%) (Auto) , Differential Total Cells Counted 100, Neutrophils % ( Manual) 53, Lymphocytes % (Manual) 35, Monocytes % (Manual) 7, Eosinophils % ( Manual) 5H, Basophils % (Manual) 0, Band Neutrophils 0, Platelet Estimate DecreasedL, Platelet Morphology Normal, Hypochromasia 3+, Anisocytosis 2+, Sodium Level 149H, Potassium Level 4.1, Chloride Level 118H, Carbon Dioxide Level 17L, Anion Gap 14, Blood Urea Nitrogen 31H, Creatinine 2.1H, Estimat Glomerular Filtration Rate 38.7, Glucose Level 100, Uric Acid 9.3H, Calcium Level 8.4L, Total Bilirubin 0.3, Aspartate Amino Transf (AST/SGOT) 30, Alanine Aminotransferase (ALT/SGPT) 11L, Alkaline Phosphatase 154H, Total Protein 5.8L, Albumin 1.2L, Globulin 4.6, Albumin/Globulin Ratio 0.3L, Amylase Level 153H, Lipase 1115H Current Medications Medications (Trade) Dose Ordered Sig/Deborah Route PRN Reason Start Time Stop Time Status Last Admin Dose Admin Acetaminophen (Tylenol) 650 mg Q4H PRN ORAL fever 07/08/19 19:45 08/07/19 19:44 Acetaminophen/ Hydrocodone Bitart ([place] 5/325) 0.5 tab Q4H PRN ORAL Severe Pain (Pain Scale 7-10) 07/11/19 15:45 07/18/19 15:44 Allopurinol (allopurinoL) 300 mg DAILY ORAL 07/14/19 09:00 08/13/19 08:59 07/18/19 08:25 Barium Sulfate (Readi-Cat 2) 450 ml NOW PRN ORAL Radiology Procedure 07/17/19 11:00 07/19/19 10:47 Barium Sulfate (Readi-Cat 2) 450 ml NOW PRN ORAL Radiology Procedure 07/17/19 11:00 07/19/19 10:48 Carvedilol (Coreg) 6.25 mg EVERY 12 HOURS NG 07/18/19 10:45 08/17/19 10:44 07/18/19 11:42 Ceftriaxone Sodium 1 gm/ Dextrose 55 ml @ 110 mls/hr Q24H IVPB 07/16/19 19:15 07/23/19 19:14 07/17/19 18:26 Chlorhexidine Gluconate (Leslie-Hex 2%) 1 applic DAILY@2000 TOPIC 07/12/19 20:00 10/10/19 19:59 07/17/19 19:47 Dextrose (Dextrose 50%) 25 ml Q30M PRN IV Hypoglycemia 07/13/19 14:00 10/11/19 13:59 07/15/19 21:31 Dextrose (Dextrose 50%) 50 ml Q30M PRN IV Hypoglycemia 07/13/19 14:00 10/11/19 13:59 07/14/19 11:33 Hydralazine HCl (Apresoline) 25 mg Q4HR PRN ORAL BP over 160 systolic 07/09/19 14:45 10/07/19 14:44 07/18/19 08:31 Insulin Aspart (NovoLOG) BEFORE MEALS AND HS SUBQ 07/13/19 16:30 10/11/19 16:29 Iohexol (OMNIPAQUE-300 100ml) 100 ml NOW PRN INJ Radiology Procedure 07/17/19 11:00 07/19/19 10:47 Lansoprazole (Prevacid) 30 mg DAILY NG 07/19/19 09:00 08/18/19 08:59 Linaclotide (Linzess) 290 mcg BEFORE BREAKFAST ORAL 07/19/19 06:30 10/17/19 06:29 Nitroglycerin (Ntg) 0.4 mg Q5M PRN SL Prn Chest Pain 07/08/19 19:45 08/07/19 19:44 Nitroglycerin (Ntg) 1 patch Q24H TDERMAL 07/10/19 13:00 08/09/19 12:59 07/18/19 12:53 Ondansetron HCl (Zofran) 4 mg Q6H PRN IVP Nausea & Vomiting 07/08/19 19:45 08/07/19 19:44 Polyethylene Glycol (Miralax) 17 gm DAILYPRN PRN ORAL Constipation 07/08/19 19:45 08/07/19 19:44 Sodium Citrate (Bicitra) 30 ml EVERY 6 HOURS NG 07/17/19 12:00 08/16/19 11:59 07/18/19 11:41 Trimethoprim/ Sulfamethoxazole (Bactrim Single Strength) 1 tab DAILY ORAL 07/13/19 09:00 07/20/19 08:59 07/18/19 08:25 Rico Chavarria MD Jul 18, 2019 13:46
[2019-07-18 16:00] VITALS: BP 133/64
--- NOTE | 2019-07-18 17:52 | Infectious Diseases Prog Note ---
Assessment/Plan Assessment/Plan 63yo man admitted with abdominal pain and diarrhea. Afebrile Leukocytosis ( Ch, doubt ID related ) ; fluctuating ? ALOC, fluctuating probable UTI 07/14 UA positive, UCx: P Hx of Diarrhea/colitis- 07/17 CT Abd: Anasarca, with severe edema of the subcutaneous fat, abdominal retroperitoneal fat. There is also trace intraperitoneal fluid and bilateral pleural effusions. No definite acute abdominal process otherwise. No evidence of bowel obstruction. Evidence of rectal fecal incontinence. Nasogastric tube in good position. Retained urine within the bladder lumen, despite the presence of a Macario catheter. Mild bladder wall thickening. Indicate cystitis. Bilateral pleural effusions, as mentioned earlier. Resultant compressive atelectatic changes at both lung bases. Evidence of bullous COPD. Hazy parenchymal opacity may be related to COPD, but could also indicate mild pulmonary edema given other findings of anasarca Severe bilateral hip degenerative changes, also previously demonstrated. 03/02 CT: Suspected colitis with the thickening of the wall the colon. Correlate clinically. Thickening of the wall the urinary bladder. Correlate for cystitis. C diff negative x2 stool cx negative stool o/p x1 negative -Negative: E. histolytica ab, Echinococcus ab pt has refused colonoscopy in the past HIV Screen positive- new diagnosis in February 2019 HIV-1 Abt positive. 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 03/04/19 CD4 180 (7.2%) 06/2009 CD4 143 RPR negative no evid of biliary - US : Mild intrahepatic biliary ductal dilatation. MRI of brain ( could not be done ) COPD. Hypertension. BPH. History of cocaine abuse in the past. Bedbound. 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 RA. Fluctuating leukocytosis. Pt opens eyes to voice. groaning. Objective Vital Signs Last 24 Hour Vital Signs Date Time Temp Pulse Resp B/P (MAP) Pulse Ox O2 Delivery O2 Flow Rate FiO2 07/18/19 16:00 98.0 93 20 133/64 (87) 95 07/18/19 12:53 138/68 07/18/19 12:00 98.1 110 20 138/68 (91) 94 07/18/19 11:42 110 138/68 07/18/19 09:00 Room Air 07/18/19 08:31 158/85 07/18/19 08:00 98.4 111 22 158/85 (109) 95 07/18/19 04:00 98.5 100 24 126/71 (89) 94 07/18/19 00:00 98.3 99 22 124/66 (85) 97 07/17/19 21:03 Room Air 07/17/19 20:00 98.6 104 19 100/59 (73) 94 Height (Feet): 6 Height (Inches): 0.00 Weight (Pounds): 167 Objective Gen: NAD HEENT: NGT CV: RRR Resp: coarse. regular. equal chest rise Abd: soft. MSK: edematous Neuro: opens eyes to voice. Laboratory Tests Test 07/18/19 06:22 White Blood Count 14.4 K/UL (4.8-10.8) H Red Blood Count 2.62 M/UL (4.70-6.10) L Hemoglobin 7.0 G/DL (14.2-18.0) L Hematocrit 21.1 % (42.0-52.0) L Mean Corpuscular Volume 81 FL (80-99) Mean Corpuscular Hemoglobin 26.7 PG (27.0-31.0) L Mean Corpuscular Hemoglobin Concent 33.1 G/DL (32.0-36.0) Red Cell Distribution Width 18.5 % (11.6-14.8) H Platelet Count 90 K/UL (150-450) L Mean Platelet Volume 9.1 FL (6.5-10.1) Neutrophils (%) (Auto) % (45.0-75.0) Lymphocytes (%) (Auto) % (20.0-45.0) Monocytes (%) (Auto) % (1.0-10.0) Eosinophils (%) (Auto) % (0.0-3.0) Basophils (%) (Auto) % (0.0-2.0) Differential Total Cells Counted 100 Neutrophils % (Manual) 53 % (45-75) Lymphocytes % (Manual) 35 % (20-45) Monocytes % (Manual) 7 % (1-10) Eosinophils % (Manual) 5 % (0-3) H Basophils % (Manual) 0 % (0-2) Band Neutrophils 0 % (0-8) Platelet Estimate Decreased L Platelet Morphology Normal Hypochromasia 3+ Anisocytosis 2+ Sodium Level 149 MMOL/L (136-145) H Potassium Level 4.1 MMOL/L (3.5-5.1) Chloride Level 118 MMOL/L (98-107) H Carbon Dioxide Level 17 MMOL/L (21-32) L Anion Gap 14 mmol/L (5-15) Blood Urea Nitrogen 31 mg/dL (7-18) H Creatinine 2.1 MG/DL (0.55-1.30) H Estimat Glomerular Filtration Rate 38.7 mL/min (>60) Glucose Level 100 MG/DL (74-106) Uric Acid 9.3 MG/DL (2.6-7.2) H Calcium Level 8.4 MG/DL (8.5-10.1) L Total Bilirubin 0.3 MG/DL (0.2-1.0) Aspartate Amino Transf (AST/SGOT) 30 U/L (15-37) Alanine Aminotransferase (ALT/SGPT) 11 U/L (12-78) L Alkaline Phosphatase 154 U/L (46-116) H Total Protein 5.8 G/DL (6.4-8.2) L Albumin 1.2 G/DL (3.4-5.0) L Globulin 4.6 g/dL Albumin/Globulin Ratio 0.3 (1.0-2.7) L Amylase Level 153 U/L (25-115) H Lipase 1115 U/L (73-393) H Current Medications Medications (Trade) Dose Ordered Sig/Deborah Route PRN Reason Start Time Stop Time Status Last Admin Dose Admin Acetaminophen (Tylenol) 650 mg Q4H PRN ORAL fever 07/08/19 19:45 08/07/19 19:44 Allopurinol (allopurinoL) 300 mg DAILY ORAL 07/14/19 09:00 08/13/19 08:59 07/18/19 08:25 Barium Sulfate (Readi-Cat 2) 450 ml NOW PRN ORAL Radiology Procedure 07/17/19 11:00 07/19/19 10:47 Barium Sulfate (Readi-Cat 2) 450 ml NOW PRN ORAL Radiology Procedure 07/17/19 11:00 07/19/19 10:48 Carvedilol (Coreg) 6.25 mg EVERY 12 HOURS NG 07/18/19 10:45 08/17/19 10:44 07/18/19 11:42 Ceftriaxone Sodium 1 gm/ Dextrose 55 ml @ 110 mls/hr Q24H IVPB 07/16/19 19:15 07/23/19 19:14 07/17/19 18:26 Chlorhexidine Gluconate (Leslie-Hex 2%) 1 applic DAILY@2000 TOPIC 07/19/19 20:00 10/17/19 19:59 Dextrose (Dextrose 50%) 25 ml Q30M PRN IV Hypoglycemia 07/13/19 14:00 10/11/19 13:59 07/15/19 21:31 Dextrose (Dextrose 50%) 50 ml Q30M PRN IV Hypoglycemia 07/13/19 14:00 10/11/19 13:59 07/14/19 11:33 Fluconazole/ Sodium Chloride 100 ml @ 100 mls/hr Q24H IV 07/18/19 17:00 07/25/19 16:59 Heparin Sodium/ Sodium Chloride (Heparin 1000 units/500ml Premix) 1,000 unit ONCE PRN IV PICC 07/19/19 12:00 07/19/19 23:59 Hydralazine HCl (Apresoline) 25 mg Q4HR PRN ORAL BP over 160 systolic 07/09/19 14:45 10/07/19 14:44 07/18/19 08:31 Insulin Aspart (NovoLOG) BEFORE MEALS AND HS SUBQ 07/13/19 16:30 10/11/19 16:29 Iohexol (OMNIPAQUE-300 100ml) 100 ml NOW PRN INJ Radiology Procedure 07/17/19 11:00 07/19/19 10:47 Lansoprazole (Prevacid) 30 mg DAILY NG 07/19/19 09:00 08/18/19 08:59 Lidocaine HCl (Xylocaine 1% 30ml) 30 ml ONCE PRN INJ PICC 07/19/19 12:00 07/19/19 23:59 Linaclotide (Linzess) 290 mcg BEFORE BREAKFAST ORAL 07/19/19 06:30 10/17/19 06:29 Nitroglycerin (Ntg) 0.4 mg Q5M PRN SL Prn Chest Pain 07/08/19 19:45 08/07/19 19:44 Nitroglycerin (Ntg) 1 patch Q24H TDERMAL 07/10/19 13:00 08/09/19 12:59 07/18/19 12:53 Ondansetron HCl (Zofran) 4 mg Q6H PRN IVP Nausea & Vomiting 07/08/19 19:45 08/07/19 19:44 Polyethylene Glycol (Miralax) 17 gm DAILYPRN PRN ORAL Constipation 07/08/19 19:45 08/07/19 19:44 Sodium Citrate (Bicitra) 30 ml EVERY 6 HOURS NG 07/17/19 12:00 08/16/19 11:59 07/18/19 11:41 Trimethoprim/ Sulfamethoxazole (Bactrim Single Strength) 1 tab DAILY ORAL 07/13/19 09:00 07/20/19 08:59 07/18/19 08:25 Olegario Carroll MD Jul 18, 2019 17:52
[2019-07-18 20:00] VITALS: BP 128/83
[2019-07-18] MEDS: cefTRIAXone 1 GM in D5W 55 ML IVPB SCH (21:45)
[2019-07-19] VITALS: BP 138/91
[2019-07-19] MEDS: Sodium Citrate 30ml NG SCH ×4 (00:08→21:00)
[2019-07-19 04:00] VITALS: BP 143/78
[2019-07-19] MEDS: NovoLOG Insulin Flexpen SUBQ SCH ×4 (05:31→21:00)
[2019-07-19 08:00] VITALS: BP 161/89
[2019-07-19] MEDS: Bactrim SS Tab ORAL SCH (08:52)
[2019-07-19] MEDS: Carvedilol 6.25mg Tab NG SCH ×2 (08:52→21:02)
[2019-07-19 09:50] LABS: BASOPHILS % (AUTO) 0.2 % (0.0-2.0); EOSINOPHILS % (AUTO) 3.7 % (0.0-3.0); HEMATOCRIT 28.6 % (42.0-52.0); HEMOGLOBIN 9.7 G/DL (14.2-18.0); LYMPHOCYTES % (AUTO) 13.3 % (20.0-45.0); MEAN CORPUSCULAR VOLUME 81 FL (80-99); NEUTROPHILS % (AUTO) 76.8 % (45.0-75.0); PLATELET COUNT 103 K/UL (150-450); RED BLOOD COUNT 3.52 M/UL (4.70-6.10); RED CELL DISTRIBUTION WIDTH 17.7 % (11.6-14.8); WHITE BLOOD COUNT 17.4 K/UL (4.8-10.8)
[2019-07-19 09:56] LABS: ALANINE AMINOTRANSFERASE 11 U/L (12-78); ALBUMIN 1.5 G/DL (3.4-5.0); ALBUMIN/GLOBULIN RATIO 0.3 (1.0-2.7); ALKALINE PHOSPHATASE 163 U/L (46-116); AMYLASE 176 U/L (25-115); ANION GAP 11 mmol/L (5-15); ASPARTATE AMINO TRANSFERASE 27 U/L (15-37); BILIRUBIN,TOTAL 0.3 MG/DL (0.2-1.0); BLOOD UREA NITROGEN 37 mg/dL (7-18); CALCIUM 8.8 MG/DL (8.5-10.1); CARBON DIOXIDE 21 MMOL/L (21-32); CHLORIDE 116 MMOL/L (98-107); CREATININE 2.2 MG/DL (0.55-1.30); POTASSIUM 3.6 MMOL/L (3.5-5.1); SODIUM 148 MMOL/L (136-145)
--- NOTE | 2019-07-19 11:17 | General Progress Note ---
Assessment/Plan Assessment/Plan: (1) HIV (2) Sacral Decubitus ulcer (3) Altered mental status Patient will be discontinued off [place] D/w Dr. Mendoza and he concurred. Subjective Date patient seen: Jul 19, 2019 Time patient seen: 10:45 - am ROS Limited/Unobtainable: Yes Allergies: Coded Allergies: No Known Allergies (Unverified , 03/02/19) Subjective No c/o pain and showing no signs of pain or distress. Objective Last 24 Hour Vital Signs Date Time Temp Pulse Resp B/P (MAP) Pulse Ox O2 Delivery O2 Flow Rate FiO2 07/19/19 09:00 Room Air 07/19/19 08:52 68 161/89 07/19/19 08:00 97.5 68 18 161/89 (113) 96 07/19/19 04:00 98.0 82 22 143/78 (99) 98 07/19/19 00:00 97.7 86 22 138/91 (107) 98 07/18/19 21:34 Room Air 07/18/19 21:09 74 136/74 07/18/19 20:00 97.7 86 22 128/83 (98) 97 07/18/19 16:00 98.0 93 20 133/64 (87) 95 07/18/19 12:53 138/68 07/18/19 12:00 98.1 110 20 138/68 (91) 94 07/18/19 11:42 110 138/68 Intake and Output 07/18/19 07/19/19 18:59 06:59 Intake Total 1010 ml 580 ml Output Total 800 ml Balance 210 ml 580 ml Free Water 230 ml 100 ml IV Total 300 ml Tube Feeding 480 ml 480 ml Output Urine Total 800 ml # Bowel Movements 2 Laboratory Tests 07/18/19 16:30: Stool Occult Blood Negative 07/19/19 09:05: White Blood Count 17.4H, Red Blood Count 3.52L, Hemoglobin 9.7#L, Hematocrit 28.6#L, Mean Corpuscular Volume 81, Mean Corpuscular Hemoglobin 27.4, Mean Corpuscular Hemoglobin Concent 33.8, Red Cell Distribution Width 17.7H, Platelet Count 103L, Mean Platelet Volume 12.5H, Neutrophils (%) (Auto) 76.8H, Lymphocytes (%) (Auto) 13.3L, Monocytes (%) (Auto) 6.0, Eosinophils (%) (Auto) 3.7H, Basophils (%) (Auto) 0.2, Sodium Level 148H, Potassium Level 3.6, Chloride Level 116H, Carbon Dioxide Level 21, Anion Gap 11, Blood Urea Nitrogen 37H, Creatinine 2.2H, Estimat Glomerular Filtration Rate 36.6, Glucose Level 116H, Calcium Level 8.8, Total Bilirubin 0.3, Aspartate Amino Transf (AST/SGOT) 27, Alanine Aminotransferase (ALT/SGPT) 11L, Alkaline Phosphatase 163H, Total Protein 6.4, Albumin 1.5L, Globulin 4.9, Albumin/Globulin Ratio 0.3L, Amylase Level 176H, Lipase 1483H Height (Feet): 6 Height (Inches): 0.00 Weight (Pounds): 167 Objective General Appearance: no apparent distress EENT: PERRL/EOMI Neck: non-tender, normal alignment Cardiovascular: normal rate, regular rhythm Respiratory/Chest: decreased breath sounds Abdomen: non tender, soft Edema: mild edema Neurologic: responsive Rachid Hennessy Jul 19, 2019 11:17
--- NOTE | 2019-07-19 11:33 | General Progress Note ---
Assessment/Plan Assessment/Plan: 1. History of HIV. 2.thrombocytopenia 3. Anemia. 4. Sepsis. 5. UTIs with MRSA. 6. Hypertension. 7. COPD. 8. BPH. 9. Sacral decubital ulcerations, stage III. 10. Malnutrition. 11. pancreatitis 12. Dilated IHD CT of abd and pelvic>>>reviewed repeat labs in am NGTF for now but may need PEG when more stable drop in H&H without active bleed>>> repeat cbc and transfuse to keep hgb above 7 off heparin given thrombocytopenia Subjective ROS Limited/Unobtainable: No Allergies: Coded Allergies: No Known Allergies (Unverified , 03/02/19) Objective Last 24 Hour Vital Signs Date Time Temp Pulse Resp B/P (MAP) Pulse Ox O2 Delivery O2 Flow Rate FiO2 07/19/19 09:00 Room Air 07/19/19 08:52 68 161/89 07/19/19 08:00 97.5 68 18 161/89 (113) 96 07/19/19 04:00 98.0 82 22 143/78 (99) 98 07/19/19 00:00 97.7 86 22 138/91 (107) 98 07/18/19 21:34 Room Air 07/18/19 21:09 74 136/74 07/18/19 20:00 97.7 86 22 128/83 (98) 97 07/18/19 16:00 98.0 93 20 133/64 (87) 95 07/18/19 12:53 138/68 07/18/19 12:00 98.1 110 20 138/68 (91) 94 07/18/19 11:42 110 138/68 Intake and Output 07/18/19 07/19/19 19:00 07:00 Intake Total 995 ml 520 ml Output Total 800 ml Balance 195 ml 520 ml Free Water 230 ml 100 ml IV Total 225 ml Tube Feeding 540 ml 420 ml Output Urine Total 800 ml # Bowel Movements 2 Laboratory Tests 07/18/19 16:30: Stool Occult Blood Negative 07/19/19 09:05: White Blood Count 17.4H, Red Blood Count 3.52L, Hemoglobin 9.7#L, Hematocrit 28.6#L, Mean Corpuscular Volume 81, Mean Corpuscular Hemoglobin 27.4, Mean Corpuscular Hemoglobin Concent 33.8, Red Cell Distribution Width 17.7H, Platelet Count 103L, Mean Platelet Volume 12.5H, Neutrophils (%) (Auto) 76.8H, Lymphocytes (%) (Auto) 13.3L, Monocytes (%) (Auto) 6.0, Eosinophils (%) (Auto) 3.7H, Basophils (%) (Auto) 0.2, Sodium Level 148H, Potassium Level 3.6, Chloride Level 116H, Carbon Dioxide Level 21, Anion Gap 11, Blood Urea Nitrogen 37H, Creatinine 2.2H, Estimat Glomerular Filtration Rate 36.6, Glucose Level 116H, Calcium Level 8.8, Total Bilirubin 0.3, Aspartate Amino Transf (AST/SGOT) 27, Alanine Aminotransferase (ALT/SGPT) 11L, Alkaline Phosphatase 163H, Total Protein 6.4, Albumin 1.5L, Globulin 4.9, Albumin/Globulin Ratio 0.3L, Amylase Level 176H, Lipase 1483H Height (Feet): 6 Height (Inches): 0.00 Weight (Pounds): 167 General Appearance: lethargic EENT: normal ENT inspection Neck: supple Cardiovascular: normal rate Respiratory/Chest: decreased breath sounds Abdomen: normal bowel sounds, non tender, soft Extremities: non-tender Mansoor Interiano MD Jul 19, 2019 11:33
[2019-07-19 12:00] VITALS: BP 121/66
[2019-07-19] MEDS ORDERED: Heparin1,000 units/500ml Premix(Conc:2 units/ml) IV PRN (12:00)
[2019-07-19] MEDS ORDERED: Lidocaine 1% Plain 30 ml INJ PRN (12:00)
[2019-07-19] MEDS: Nitroglycerin Patch 0.4mg TDERMAL SCH (12:17)
--- NOTE | 2019-07-19 13:00 | Pulmonology Progress Note ---
Assessment/Plan Problems: (1) Sepsis (2) Altered level of consciousness (3) COPD (chronic obstructive pulmonary disease) (4) Pancreatitis (5) Decubitus skin ulcer (6) Hypertension (7) BPH (benign prostatic hyperplasia) (8) HIV disease Assessment/Plan WBC still high s/p prbc one unit yesterday absolute CD4 count noted mental status improved wound care iv abx adams culture, VRE positive, BC negative f/u amylase lipase has NG tube now pt refusing meds at times dvt prophylaxis. Subjective ROS Limited/Unobtainable: No Constitutional: Reports: no symptoms HEENT: Repors: no symptoms Allergies: Coded Allergies: No Known Allergies (Unverified , 03/02/19) Objective Last 24 Hour Vital Signs Date Time Temp Pulse Resp B/P (MAP) Pulse Ox O2 Delivery O2 Flow Rate FiO2 07/19/19 12:17 121/66 07/19/19 12:00 97.8 81 19 121/66 (84) 96 07/19/19 09:00 Room Air 07/19/19 08:52 68 161/89 07/19/19 08:00 97.5 68 18 161/89 (113) 96 07/19/19 04:00 98.0 82 22 143/78 (99) 98 07/19/19 00:00 97.7 86 22 138/91 (107) 98 07/18/19 21:34 Room Air 07/18/19 21:09 74 136/74 07/18/19 20:00 97.7 86 22 128/83 (98) 97 07/18/19 16:00 98.0 93 20 133/64 (87) 95 Intake and Output 07/18/19 07/19/19 19:00 07:00 Intake Total 995 ml 520 ml Output Total 800 ml Balance 195 ml 520 ml Free Water 230 ml 100 ml IV Total 225 ml Tube Feeding 540 ml 420 ml Output Urine Total 800 ml # Bowel Movements 2 Objective General Appearance: cachectic HEENT: normocephalic Respiratory/Chest: chest wall non-tender, lungs clear Cardiovascular: normal rate, regular rhythm Abdomen: normal bowel sounds, no organomegaly Extremities: no cyanosis Bed bound Laboratory Tests 07/18/19 16:30: Stool Occult Blood Negative 07/19/19 09:05: White Blood Count 17.4H, Red Blood Count 3.52L, Hemoglobin 9.7#L, Hematocrit 28.6#L, Mean Corpuscular Volume 81, Mean Corpuscular Hemoglobin 27.4, Mean Corpuscular Hemoglobin Concent 33.8, Red Cell Distribution Width 17.7H, Platelet Count 103L, Mean Platelet Volume 12.5H, Neutrophils (%) (Auto) 76.8H, Lymphocytes (%) (Auto) 13.3L, Monocytes (%) (Auto) 6.0, Eosinophils (%) (Auto) 3.7H, Basophils (%) (Auto) 0.2, Sodium Level 148H, Potassium Level 3.6, Chloride Level 116H, Carbon Dioxide Level 21, Anion Gap 11, Blood Urea Nitrogen 37H, Creatinine 2.2H, Estimat Glomerular Filtration Rate 36.6, Glucose Level 116H, Calcium Level 8.8, Total Bilirubin 0.3, Aspartate Amino Transf (AST/SGOT) 27, Alanine Aminotransferase (ALT/SGPT) 11L, Alkaline Phosphatase 163H, Total Protein 6.4, Albumin 1.5L, Globulin 4.9, Albumin/Globulin Ratio 0.3L, Amylase Level 176H, Lipase 1483H Current Medications Medications (Trade) Dose Ordered Sig/Deborah Route PRN Reason Start Time Stop Time Status Last Admin Dose Admin Acetaminophen (Tylenol) 650 mg Q4H PRN ORAL fever 07/08/19 19:45 08/07/19 19:44 Allopurinol (allopurinoL) 300 mg DAILY ORAL 07/14/19 09:00 08/13/19 08:59 07/19/19 08:52 Carvedilol (Coreg) 6.25 mg EVERY 12 HOURS NG 07/18/19 10:45 08/17/19 10:44 07/19/19 08:52 Ceftriaxone Sodium 1 gm/ Dextrose 55 ml @ 110 mls/hr Q24H IVPB 07/16/19 19:15 07/23/19 19:14 07/18/19 21:45 Chlorhexidine Gluconate (Leslie-Hex 2%) 1 applic DAILY@2000 TOPIC 07/19/19 20:00 10/17/19 19:59 Dextrose (Dextrose 50%) 25 ml Q30M PRN IV Hypoglycemia 07/13/19 14:00 10/11/19 13:59 07/15/19 21:31 Dextrose (Dextrose 50%) 50 ml Q30M PRN IV Hypoglycemia 07/13/19 14:00 10/11/19 13:59 07/14/19 11:33 Fluconazole/ Sodium Chloride 100 ml @ 100 mls/hr Q24H IV 07/18/19 17:00 07/25/19 16:59 07/18/19 21:45 Heparin Sodium/ Sodium Chloride (Heparin 1000 units/500ml Premix) 1,000 unit ONCE PRN IV PICC 07/19/19 12:00 07/19/19 23:59 Hydralazine HCl (Apresoline) 25 mg Q4HR PRN ORAL BP over 160 systolic 07/09/19 14:45 10/07/19 14:44 07/18/19 08:31 Insulin Aspart (NovoLOG) BEFORE MEALS AND HS SUBQ 07/13/19 16:30 10/11/19 16:29 Lansoprazole (Prevacid) 30 mg DAILY NG 07/19/19 09:00 08/18/19 08:59 07/19/19 08:52 Lidocaine HCl (Xylocaine 1% 30ml) 30 ml ONCE PRN INJ PICC 07/19/19 12:00 07/19/19 23:59 Linaclotide (Linzess) 290 mcg BEFORE BREAKFAST ORAL 07/19/19 06:30 10/17/19 06:29 Nitroglycerin (Ntg) 0.4 mg Q5M PRN SL Prn Chest Pain 07/08/19 19:45 08/07/19 19:44 Nitroglycerin (Ntg) 1 patch Q24H TDERMAL 07/10/19 13:00 08/09/19 12:59 07/19/19 12:17 Ondansetron HCl (Zofran) 4 mg Q6H PRN IVP Nausea & Vomiting 07/08/19 19:45 08/07/19 19:44 Polyethylene Glycol (Miralax) 17 gm DAILYPRN PRN ORAL Constipation 07/08/19 19:45 08/07/19 19:44 Sodium Citrate (Bicitra) 30 ml EVERY 6 HOURS NG 07/17/19 12:00 08/16/19 11:59 07/19/19 12:16 Trimethoprim/ Sulfamethoxazole (Bactrim Single Strength) 1 tab DAILY ORAL 07/13/19 09:00 07/20/19 08:59 07/19/19 08:52 Rico Chavarria MD Jul 19, 2019 13:00
--- NOTE | 2019-07-19 13:10 | Nephrology Progress Note ---
Assessment/Plan Problem List: (1) Pancreatitis (2) Hypothermia (3) Hypertension (4) COPD (chronic obstructive pulmonary disease) (5) BPH (benign prostatic hyperplasia) (6) HIV disease (7) Anemia Assessment Acute renal failure, partly dehydration Anemia Hypoalbuminemia High lipase level of 2000, Pancreatitis UTI Hypothermia Toxic metabolic encephalopathy Sepsis Decubitus skin ulcer Hypothyroid Plan Serum creatinine 2.2 stable Will cut down on Bicitra will discontinue IV fluids Trial of albumin and Lasix as needed Patient has Macario catheter so will discontinue Flomax Suggested blood transfusion for low hemoglobin as needed Add Coreg Remains full code Today's labs were reviewed Previously ; patient refusing most of his oral medications, however now has NG tube Will attempt to discontinue what can be changing to intravenous from p.o. and or NG tube route magnesium sulfate and potassium as needed 24-hour urine measurement for total protein results noted unremarkable Add allopurinol 2D echocardiogram results suggestive of ejection fraction of 50% Kidney ultrasound unremarkable Urine studies Anemia work-up noted Monitor renal parameters Antibiotics Avoid nephrotoxic's Per orders Subjective ROS Limited/Unobtainable: No Constitutional: Reports: malaise, other - Nonverbal Objective Objective Last 24 Hour Vital Signs Date Time Temp Pulse Resp B/P (MAP) Pulse Ox O2 Delivery O2 Flow Rate FiO2 07/19/19 12:17 121/66 07/19/19 12:00 97.8 81 19 121/66 (84) 96 07/19/19 09:00 Room Air 07/19/19 08:52 68 161/89 07/19/19 08:00 97.5 68 18 161/89 (113) 96 07/19/19 04:00 98.0 82 22 143/78 (99) 98 07/19/19 00:00 97.7 86 22 138/91 (107) 98 07/18/19 21:34 Room Air 07/18/19 21:09 74 136/74 07/18/19 20:00 97.7 86 22 128/83 (98) 97 07/18/19 16:00 98.0 93 20 133/64 (87) 95 Intake and Output 07/18/19 07/19/19 19:00 07:00 Intake Total 995 ml 520 ml Output Total 800 ml Balance 195 ml 520 ml Free Water 230 ml 100 ml IV Total 225 ml Tube Feeding 540 ml 420 ml Output Urine Total 800 ml # Bowel Movements 2 Laboratory Tests 07/18/19 16:30: Stool Occult Blood Negative 07/19/19 09:05: White Blood Count 17.4H, Red Blood Count 3.52L, Hemoglobin 9.7#L, Hematocrit 28.6#L, Mean Corpuscular Volume 81, Mean Corpuscular Hemoglobin 27.4, Mean Corpuscular Hemoglobin Concent 33.8, Red Cell Distribution Width 17.7H, Platelet Count 103L, Mean Platelet Volume 12.5H, Neutrophils (%) (Auto) 76.8H, Lymphocytes (%) (Auto) 13.3L, Monocytes (%) (Auto) 6.0, Eosinophils (%) (Auto) 3.7H, Basophils (%) (Auto) 0.2, Sodium Level 148H, Potassium Level 3.6, Chloride Level 116H, Carbon Dioxide Level 21, Anion Gap 11, Blood Urea Nitrogen 37H, Creatinine 2.2H, Estimat Glomerular Filtration Rate 36.6, Glucose Level 116H, Calcium Level 8.8, Total Bilirubin 0.3, Aspartate Amino Transf (AST/SGOT) 27, Alanine Aminotransferase (ALT/SGPT) 11L, Alkaline Phosphatase 163H, Total Protein 6.4, Albumin 1.5L, Globulin 4.9, Albumin/Globulin Ratio 0.3L, Amylase Level 176H, Lipase 1483H Height (Feet): 6 Height (Inches): 0.00 Weight (Pounds): 167 General Appearance: no apparent distress, lethargic EENT: other - NG tube in place Cardiovascular: tachycardia Respiratory/Chest: decreased breath sounds Abdomen: distended Objective No change Zander Razo MD Jul 19, 2019 13:10
[2019-07-19 16:00] VITALS: BP 125/80
--- NOTE | 2019-07-19 18:19 | Infectious Diseases Prog Note ---
Assessment/Plan Assessment/Plan 63yo man admitted with abdominal pain and diarrhea. Afebrile Leukocytosis ( Ch, doubt ID related ) ; fluctuating ? ALOC, fluctuating probable UTI 07/14 UA positive, UCx: P Hx of Diarrhea/colitis- 07/17 CT Abd: Anasarca, with severe edema of the subcutaneous fat, abdominal retroperitoneal fat. There is also trace intraperitoneal fluid and bilateral pleural effusions. No definite acute abdominal process otherwise. No evidence of bowel obstruction. Evidence of rectal fecal incontinence. Nasogastric tube in good position. Retained urine within the bladder lumen, despite the presence of a Macario catheter. Mild bladder wall thickening. Indicate cystitis. Bilateral pleural effusions, as mentioned earlier. Resultant compressive atelectatic changes at both lung bases. Evidence of bullous COPD. Hazy parenchymal opacity may be related to COPD, but could also indicate mild pulmonary edema given other findings of anasarca Severe bilateral hip degenerative changes, also previously demonstrated. 03/02 CT: Suspected colitis with the thickening of the wall the colon. Correlate clinically. Thickening of the wall the urinary bladder. Correlate for cystitis. C diff negative x2 stool cx negative stool o/p x1 negative -Negative: E. histolytica ab, Echinococcus ab pt has refused colonoscopy in the past HIV Screen positive- new diagnosis in February 2019 HIV-1 Abt positive. 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 03/04/19 CD4 180 (7.2%) 06/2009 CD4 143 RPR negative no evid of biliary - US : Mild intrahepatic biliary ductal dilatation. MRI of brain ( could not be done ) COPD. Hypertension. BPH. History of cocaine abuse in the past. Bedbound. PLAN: Fluconazole #2/3 pt is refusing meds from time time making HIV Rx difficult on Bactrim SS for PCP PPx 07/17 SP Ceftriaxone #3 07/12 SP IV Vanco and Cefepime # 4/5 monitor CBC, temp pt must follow up with PMD/HIV specialist once discharged HIV Genotype exchange inna JUNIOR RN Subjective Allergies: Coded Allergies: No Known Allergies (Unverified , 03/02/19) Subjective Afebrile. RA. Fluctuating leukocytosis. Pt is more alert and interactive although confused Objective Vital Signs Last 24 Hour Vital Signs Date Time Temp Pulse Resp B/P (MAP) Pulse Ox O2 Delivery O2 Flow Rate FiO2 07/19/19 16:00 97.8 72 18 125/80 (95) 96 07/19/19 12:17 121/66 07/19/19 12:00 97.8 81 19 121/66 (84) 96 07/19/19 09:00 Room Air 07/19/19 08:52 68 161/89 07/19/19 08:00 97.5 68 18 161/89 (113) 96 07/19/19 04:00 98.0 82 22 143/78 (99) 98 07/19/19 00:00 97.7 86 22 138/91 (107) 98 07/18/19 21:34 Room Air 07/18/19 21:09 74 136/74 07/18/19 20:00 97.7 86 22 128/83 (98) 97 Height (Feet): 6 Height (Inches): 0.00 Weight (Pounds): 167 Objective Gen: NAD HEENT: NGT CV: RRR Resp: coarse. regular. equal chest rise Abd: soft. MSK: edematous Neuro: awake. confused Laboratory Tests Test 07/19/19 09:05 White Blood Count 17.4 K/UL (4.8-10.8) H Red Blood Count 3.52 M/UL (4.70-6.10) L Hemoglobin 9.7 G/DL (14.2-18.0) #L Hematocrit 28.6 % (42.0-52.0) #L Mean Corpuscular Volume 81 FL (80-99) Mean Corpuscular Hemoglobin 27.4 PG (27.0-31.0) Mean Corpuscular Hemoglobin Concent 33.8 G/DL (32.0-36.0) Red Cell Distribution Width 17.7 % (11.6-14.8) H Platelet Count 103 K/UL (150-450) L Mean Platelet Volume 12.5 FL (6.5-10.1) H Neutrophils (%) (Auto) 76.8 % (45.0-75.0) H Lymphocytes (%) (Auto) 13.3 % (20.0-45.0) L Monocytes (%) (Auto) 6.0 % (1.0-10.0) Eosinophils (%) (Auto) 3.7 % (0.0-3.0) H Basophils (%) (Auto) 0.2 % (0.0-2.0) Sodium Level 148 MMOL/L (136-145) H Potassium Level 3.6 MMOL/L (3.5-5.1) Chloride Level 116 MMOL/L (98-107) H Carbon Dioxide Level 21 MMOL/L (21-32) Anion Gap 11 mmol/L (5-15) Blood Urea Nitrogen 37 mg/dL (7-18) H Creatinine 2.2 MG/DL (0.55-1.30) H Estimat Glomerular Filtration Rate 36.6 mL/min (>60) Glucose Level 116 MG/DL (74-106) H Calcium Level 8.8 MG/DL (8.5-10.1) Total Bilirubin 0.3 MG/DL (0.2-1.0) Aspartate Amino Transf (AST/SGOT) 27 U/L (15-37) Alanine Aminotransferase (ALT/SGPT) 11 U/L (12-78) L Alkaline Phosphatase 163 U/L (46-116) H Total Protein 6.4 G/DL (6.4-8.2) Albumin 1.5 G/DL (3.4-5.0) L Globulin 4.9 g/dL Albumin/Globulin Ratio 0.3 (1.0-2.7) L Amylase Level 176 U/L (25-115) H Lipase 1483 U/L (73-393) H Current Medications Medications (Trade) Dose Ordered Sig/Deborah Route PRN Reason Start Time Stop Time Status Last Admin Dose Admin Acetaminophen (Tylenol) 650 mg Q4H PRN ORAL fever 07/08/19 19:45 08/07/19 19:44 Allopurinol (allopurinoL) 300 mg DAILY ORAL 07/14/19 09:00 08/13/19 08:59 07/19/19 08:52 Carvedilol (Coreg) 6.25 mg EVERY 12 HOURS NG 07/18/19 10:45 08/17/19 10:44 07/19/19 08:52 Ceftriaxone Sodium 1 gm/ Dextrose 55 ml @ 110 mls/hr Q24H IVPB 07/16/19 19:15 07/23/19 19:14 07/18/19 21:45 Chlorhexidine Gluconate (Leslie-Hex 2%) 1 applic DAILY@2000 TOPIC 07/19/19 20:00 10/17/19 19:59 Dextrose (Dextrose 50%) 25 ml Q30M PRN IV Hypoglycemia 07/13/19 14:00 10/11/19 13:59 07/15/19 21:31 Dextrose (Dextrose 50%) 50 ml Q30M PRN IV Hypoglycemia 07/13/19 14:00 10/11/19 13:59 07/14/19 11:33 Fluconazole/ Sodium Chloride 100 ml @ 100 mls/hr Q24H IV 07/18/19 17:00 07/25/19 16:59 07/19/19 17:15 Heparin Sodium/ Sodium Chloride (Heparin 1000 units/500ml Premix) 1,000 unit ONCE PRN IV PICC 07/19/19 12:00 07/19/19 23:59 Hydralazine HCl (Apresoline) 25 mg Q4HR PRN ORAL BP over 160 systolic 07/09/19 14:45 10/07/19 14:44 07/18/19 08:31 Insulin Aspart (NovoLOG) BEFORE MEALS AND HS SUBQ 07/13/19 16:30 10/11/19 16:29 Lansoprazole (Prevacid) 30 mg BID NG 07/19/19 18:00 08/18/19 08:59 07/19/19 17:25 Lidocaine HCl (Xylocaine 1% 30ml) 30 ml ONCE PRN INJ PICC 07/19/19 12:00 07/19/19 23:59 Linaclotide (Linzess) 290 mcg BEFORE BREAKFAST ORAL 07/19/19 06:30 10/17/19 06:29 Nitroglycerin (Ntg) 0.4 mg Q5M PRN SL Prn Chest Pain 07/08/19 19:45 08/07/19 19:44 Nitroglycerin (Ntg) 1 patch Q24H TDERMAL 07/10/19 13:00 08/09/19 12:59 07/19/19 12:17 Ondansetron HCl (Zofran) 4 mg Q6H PRN IVP Nausea & Vomiting 07/08/19 19:45 08/07/19 19:44 Polyethylene Glycol (Miralax) 17 gm DAILYPRN PRN ORAL Constipation 07/08/19 19:45 08/07/19 19:44 Sodium Citrate (Bicitra) 30 ml EVERY 12 HOURS NG 07/19/19 21:00 08/16/19 11:59 Trimethoprim/ Sulfamethoxazole (Bactrim Single Strength) 1 tab DAILY ORAL 07/13/19 09:00 08/18/19 23:59 07/19/19 08:52 Olegario Carroll MD Jul 19, 2019 18:19
[2019-07-19 20:00] VITALS: BP 142/98
[2019-07-19] MEDS: Dyna-Hex 2% Top Sol 2oz TOPIC SCH (20:00)
[2019-07-20] VITALS: BP 115/68
[2019-07-20 04:00] VITALS: BP 157/88
--- NOTE | 2019-07-20 05:57 | Diagnostic Imaging Report ---
Indication: NG tube placement Comparison: None Single view of the abdomen obtained Findings: NG tube is projected over the stomach in good position. There is severe arthrosis of both hips with the extensively narrowed joint, severe osteophyte formation and remodeling of the femoral heads. IMPRESSION: NG tube in good position
[2019-07-20] MEDS: NovoLOG Insulin Flexpen SUBQ SCH ×4 (06:30→21:00)
[2019-07-20 08:00] VITALS: BP 144/82
[2019-07-20] MEDS: Bactrim SS Tab ORAL SCH (08:46)
[2019-07-20] MEDS: Sodium Citrate 30ml NG SCH ×2 (08:46→23:32)
[2019-07-20] MEDS: Carvedilol 6.25mg Tab NG SCH ×2 (08:46→23:32)
--- NOTE | 2019-07-20 10:24 | Nephrology Progress Note ---
Assessment/Plan Problem List: (1) Pancreatitis (2) Hypothermia (3) Hypertension (4) COPD (chronic obstructive pulmonary disease) (5) BPH (benign prostatic hyperplasia) (6) HIV disease (7) Anemia Assessment Acute renal failure, partly dehydration Anemia Hypoalbuminemia High lipase level of 2000, Pancreatitis UTI Hypothermia Toxic metabolic encephalopathy Sepsis Decubitus skin ulcer Hypothyroid Plan Serum creatinine 2.2 stable Will cut down on Bicitra will discontinue IV fluids Trial of albumin and Lasix as needed Patient has Macario catheter so will discontinue Flomax Suggested blood transfusion for low hemoglobin as needed Add Coreg Remains full code Today's labs were reviewed Previously ; patient refusing most of his oral medications, however now has NG tube Will attempt to discontinue what can be changing to intravenous from p.o. and or NG tube route magnesium sulfate and potassium as needed 24-hour urine measurement for total protein results noted unremarkable Add allopurinol 2D echocardiogram results suggestive of ejection fraction of 50% Kidney ultrasound unremarkable Urine studies Anemia work-up noted Monitor renal parameters Antibiotics Avoid nephrotoxic's Per orders Subjective ROS Limited/Unobtainable: Yes Objective Objective Last 24 Hour Vital Signs Date Time Temp Pulse Resp B/P (MAP) Pulse Ox O2 Delivery O2 Flow Rate FiO2 07/20/19 09:00 Room Air 07/20/19 08:46 80 144/82 07/20/19 08:00 97.2 80 18 144/82 (102) 96 07/20/19 04:00 96.9 77 18 157/88 (111) 95 07/20/19 00:00 97.5 73 18 115/68 (84) 97 07/19/19 21:02 97 142/98 07/19/19 21:00 Room Air 07/19/19 20:00 97.5 97 22 142/98 (113) 95 07/19/19 16:00 97.8 72 18 125/80 (95) 96 07/19/19 12:17 121/66 07/19/19 12:00 97.8 81 19 121/66 (84) 96 Intake and Output 07/19/19 07/20/19 19:00 07:00 Intake Total 1020 ml Output Total 375 ml 250 ml Balance 645 ml -250 ml Free Water 200 ml IV Total 100 ml Tube Feeding 720 ml Output Urine Total 375 ml 250 ml # Bowel Movements 2 1 Laboratory Tests 07/19/19 18:10: Stool Occult Blood [Pending] Height (Feet): 6 Height (Inches): 0.00 Weight (Pounds): 167 General Appearance: no apparent distress, lethargic Cardiovascular: normal rate Respiratory/Chest: decreased breath sounds Abdomen: soft Objective No change Zander Razo MD Jul 20, 2019 10:24
--- NOTE | 2019-07-20 10:50 | General Progress Note ---
Assessment/Plan Assessment/Plan: 1. History of HIV. 2.thrombocytopenia 3. Anemia. 4. Sepsis. 5. UTIs with MRSA. 6. Hypertension. 7. COPD. 8. BPH. 9. Sacral decubital ulcerations, stage III. 10. Malnutrition. 11. pancreatitis 12. Dilated IHD CT of abd and pelvic>>>reviewed repeat labs in am NGTF for now but may need PEG when more stable drop in H&H without active bleed>>> repeat cbc and transfuse to keep hgb above 7 off heparin given thrombocytopenia Subjective ROS Limited/Unobtainable: No Allergies: Coded Allergies: No Known Allergies (Unverified , 03/02/19) Subjective confused pulled NGT now replaced Objective Last 24 Hour Vital Signs Date Time Temp Pulse Resp B/P (MAP) Pulse Ox O2 Delivery O2 Flow Rate FiO2 07/20/19 09:00 Room Air 07/20/19 08:46 80 144/82 07/20/19 08:00 97.2 80 18 144/82 (102) 96 07/20/19 04:00 96.9 77 18 157/88 (111) 95 07/20/19 00:00 97.5 73 18 115/68 (84) 97 07/19/19 21:02 97 142/98 07/19/19 21:00 Room Air 07/19/19 20:00 97.5 97 22 142/98 (113) 95 07/19/19 16:00 97.8 72 18 125/80 (95) 96 07/19/19 12:17 121/66 07/19/19 12:00 97.8 81 19 121/66 (84) 96 Intake and Output 07/19/19 07/20/19 19:00 07:00 Intake Total 1020 ml Output Total 375 ml 250 ml Balance 645 ml -250 ml Free Water 200 ml IV Total 100 ml Tube Feeding 720 ml Output Urine Total 375 ml 250 ml # Bowel Movements 2 1 Laboratory Tests 07/19/19 18:10: Stool Occult Blood [Pending] Height (Feet): 6 Height (Inches): 0.00 Weight (Pounds): 167 General Appearance: lethargic EENT: normal ENT inspection Neck: supple Cardiovascular: normal rate Respiratory/Chest: decreased breath sounds Abdomen: normal bowel sounds, non tender, soft Extremities: non-tender Mansoor Interiano MD Jul 20, 2019 10:50
[2019-07-20] MEDS ORDERED: Lidocaine 1% Plain 30 ml INJ PRN (11:30)
[2019-07-20] MEDS ORDERED: Heparin1,000 units/500ml Premix(Conc:2 units/ml) IV PRN (11:30)
[2019-07-20 12:00] VITALS: BP 106/66
[2019-07-20] MEDS: Nitroglycerin Patch 0.4mg TDERMAL SCH (12:14)
--- NOTE | 2019-07-20 12:37 | General Progress Note ---
Assessment/Plan Assessment/Plan: (1) HIV (2) Sacral Decubitus ulcer (3) Altered mental status Patient will be continued on Tylenol We will sign off the patients care at this time if patients complaints of pain please do not hesitate to reconsult. D/w Dr. Mendoza and he concurred. Subjective Date patient seen: Jul 20, 2019 Time patient seen: 11:45 - am ROS Limited/Unobtainable: Yes Allergies: Coded Allergies: No Known Allergies (Unverified , 03/02/19) Subjective In bed no signs of pain or distress. No c/o pain at this time. Objective Last 24 Hour Vital Signs Date Time Temp Pulse Resp B/P (MAP) Pulse Ox O2 Delivery O2 Flow Rate FiO2 07/20/19 12:14 106/66 07/20/19 12:00 97.3 73 20 106/66 (79) 95 07/20/19 09:00 Room Air 07/20/19 08:46 80 144/82 07/20/19 08:00 97.2 80 18 144/82 (102) 96 07/20/19 04:00 96.9 77 18 157/88 (111) 95 07/20/19 00:00 97.5 73 18 115/68 (84) 97 07/19/19 21:02 97 142/98 07/19/19 21:00 Room Air 07/19/19 20:00 97.5 97 22 142/98 (113) 95 07/19/19 16:00 97.8 72 18 125/80 (95) 96 Intake and Output 07/19/19 07/20/19 19:00 07:00 Intake Total 1020 ml 60 ml Output Total 375 ml 250 ml Balance 645 ml -190 ml Free Water 200 ml IV Total 100 ml Tube Feeding 720 ml 60 ml Output Urine Total 375 ml 250 ml # Bowel Movements 2 1 Laboratory Tests 07/19/19 18:10: Stool Occult Blood [Pending] Height (Feet): 6 Height (Inches): 0.00 Weight (Pounds): 167 Objective General Appearance: no apparent distress EENT: PERRL/EOMI Neck: non-tender, normal alignment Cardiovascular: normal rate, regular rhythm Respiratory/Chest: decreased breath sounds Abdomen: non tender, soft Edema: mild edema Neurologic: responsive Rachid Hennessy Jul 20, 2019 12:37
--- NOTE | 2019-07-20 13:55 | Pulmonology Progress Note ---
Assessment/Plan Problems: (1) Sepsis (2) Altered level of consciousness (3) COPD (chronic obstructive pulmonary disease) (4) Pancreatitis (5) Decubitus skin ulcer (6) Hypertension (7) BPH (benign prostatic hyperplasia) (8) HIV disease Assessment/Plan WBC still high h/h stable, OB stool negative absolute CD4 count noted mental status improved wound care iv abx adams culture, VRE positive, BC negative f/u amylase lipase has NG tube now pt refusing meds at times dvt prophylaxis. Subjective ROS Limited/Unobtainable: No Constitutional: Reports: no symptoms HEENT: Repors: no symptoms Respiratory: Reports: no symptoms Allergies: Coded Allergies: No Known Allergies (Unverified , 03/02/19) Objective Last 24 Hour Vital Signs Date Time Temp Pulse Resp B/P (MAP) Pulse Ox O2 Delivery O2 Flow Rate FiO2 07/20/19 12:14 106/66 07/20/19 12:00 97.3 73 20 106/66 (79) 95 07/20/19 09:00 Room Air 07/20/19 08:46 80 144/82 07/20/19 08:00 97.2 80 18 144/82 (102) 96 07/20/19 04:00 96.9 77 18 157/88 (111) 95 07/20/19 00:00 97.5 73 18 115/68 (84) 97 07/19/19 21:02 97 142/98 07/19/19 21:00 Room Air 07/19/19 20:00 97.5 97 22 142/98 (113) 95 07/19/19 16:00 97.8 72 18 125/80 (95) 96 Intake and Output 07/19/19 07/20/19 19:00 07:00 Intake Total 1020 ml 60 ml Output Total 375 ml 250 ml Balance 645 ml -190 ml Free Water 200 ml IV Total 100 ml Tube Feeding 720 ml 60 ml Output Urine Total 375 ml 250 ml # Bowel Movements 2 1 Objective General Appearance: cachectic HEENT: normocephalic Respiratory/Chest: chest wall non-tender, lungs clear Cardiovascular: normal rate, regular rhythm Abdomen: normal bowel sounds, no organomegaly Extremities: no cyanosis Bed bound Laboratory Tests 07/19/19 18:10: Stool Occult Blood Negative Current Medications Medications (Trade) Dose Ordered Sig/Deborah Route PRN Reason Start Time Stop Time Status Last Admin Dose Admin Acetaminophen (Tylenol) 650 mg Q4H PRN ORAL fever 07/08/19 19:45 08/07/19 19:44 Allopurinol (allopurinoL) 300 mg DAILY ORAL 07/14/19 09:00 08/13/19 08:59 07/20/19 08:46 Carvedilol (Coreg) 6.25 mg EVERY 12 HOURS NG 07/18/19 10:45 08/17/19 10:44 07/20/19 08:46 Chlorhexidine Gluconate (Leslie-Hex 2%) 1 applic DAILY@2000 TOPIC 07/19/19 20:00 10/17/19 19:59 Dextrose (Dextrose 50%) 25 ml Q30M PRN IV Hypoglycemia 07/13/19 14:00 10/11/19 13:59 07/15/19 21:31 Dextrose (Dextrose 50%) 50 ml Q30M PRN IV Hypoglycemia 07/13/19 14:00 10/11/19 13:59 07/14/19 11:33 Fluconazole/ Sodium Chloride 100 ml @ 100 mls/hr Q24H IV 07/18/19 17:00 07/25/19 16:59 07/19/19 17:15 Heparin Sodium/ Sodium Chloride (Heparin 1000 units/500ml Premix) 1,000 unit ONCE PRN IV PICC LINE PLACEMENT 07/20/19 11:30 07/21/19 23:59 Hydralazine HCl (Apresoline) 25 mg Q4HR PRN ORAL BP over 160 systolic 07/09/19 14:45 10/07/19 14:44 07/18/19 08:31 Insulin Aspart (NovoLOG) BEFORE MEALS AND HS SUBQ 07/13/19 16:30 10/11/19 16:29 Lansoprazole (Prevacid) 30 mg BID NG 07/19/19 18:00 08/18/19 08:59 07/20/19 08:46 Lidocaine HCl (Xylocaine 1% 30ml) 30 ml ONCE PRN INJ PICC LINE 07/20/19 11:30 07/21/19 23:59 Linaclotide (Linzess) 290 mcg BEFORE BREAKFAST ORAL 07/19/19 06:30 10/17/19 06:29 07/20/19 07:07 Nitroglycerin (Ntg) 0.4 mg Q5M PRN SL Prn Chest Pain 07/08/19 19:45 08/07/19 19:44 Nitroglycerin (Ntg) 1 patch Q24H TDERMAL 07/10/19 13:00 08/09/19 12:59 07/20/19 12:14 Ondansetron HCl (Zofran) 4 mg Q6H PRN IVP Nausea & Vomiting 07/08/19 19:45 08/07/19 19:44 Polyethylene Glycol (Miralax) 17 gm DAILYPRN PRN ORAL Constipation 07/08/19 19:45 08/07/19 19:44 Sodium Citrate (Bicitra) 30 ml EVERY 12 HOURS NG 07/19/19 21:00 08/16/19 11:59 07/20/19 08:46 Trimethoprim/ Sulfamethoxazole (Bactrim Single Strength) 1 tab DAILY ORAL 07/13/19 09:00 08/18/19 23:59 07/20/19 08:46 Rico Chavarria MD Jul 20, 2019 13:55
[2019-07-20 16:00] VITALS: BP 121/68
[2019-07-20 20:00] VITALS: BP 119/60
[2019-07-20] MEDS: Dyna-Hex 2% Top Sol 2oz TOPIC SCH (20:00)
--- NOTE | 2019-07-20 20:04 | Infectious Diseases Prog Note ---
Assessment/Plan Assessment/Plan 63yo man admitted with abdominal pain and diarrhea. Afebrile Leukocytosis ( Ch, doubt ID related ) ; fluctuating ? ALOC, improving probable UTI 07/14 UA positive, UCx: Ilda albicans Hx of Diarrhea/colitis- 07/17 CT Abd: Anasarca, with severe edema of the subcutaneous fat, abdominal retroperitoneal fat. There is also trace intraperitoneal fluid and bilateral pleural effusions. No definite acute abdominal process otherwise. No evidence of bowel obstruction. Evidence of rectal fecal incontinence. Nasogastric tube in good position. Retained urine within the bladder lumen, despite the presence of a Macario catheter. Mild bladder wall thickening. Indicate cystitis. Bilateral pleural effusions, as mentioned earlier. Resultant compressive atelectatic changes at both lung bases. Evidence of bullous COPD. Hazy parenchymal opacity may be related to COPD, but could also indicate mild pulmonary edema given other findings of anasarca Severe bilateral hip degenerative changes, also previously demonstrated. 03/02 CT: Suspected colitis with the thickening of the wall the colon. Correlate clinically. Thickening of the wall the urinary bladder. Correlate for cystitis. C diff negative x2 stool cx negative stool o/p x1 negative -Negative: E. histolytica ab, Echinococcus ab pt has refused colonoscopy in the past HIV Screen positive- new diagnosis in February 2019 HIV-1 Abt positive. 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 03/04/19 CD4 180 (7.2%) 06/2009 CD4 143 RPR negative no evid of biliary - US : Mild intrahepatic biliary ductal dilatation. MRI of brain ( could not be done ) COPD. Hypertension. BPH. History of cocaine abuse in the past. Bedbound. 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 RA. Fluctuating leukocytosis. Pt is alert. Confused but interacting. Objective Vital Signs Last 24 Hour Vital Signs Date Time Temp Pulse Resp B/P (MAP) Pulse Ox O2 Delivery O2 Flow Rate FiO2 07/20/19 16:00 97.5 80 20 121/68 (85) 95 07/20/19 12:14 106/66 07/20/19 12:00 97.3 73 20 106/66 (79) 95 07/20/19 09:00 Room Air 07/20/19 08:46 80 144/82 07/20/19 08:00 97.2 80 18 144/82 (102) 96 07/20/19 04:00 96.9 77 18 157/88 (111) 95 07/20/19 00:00 97.5 73 18 115/68 (84) 97 07/19/19 21:02 97 142/98 07/19/19 21:00 Room Air Height (Feet): 6 Height (Inches): 0.00 Weight (Pounds): 167 Objective Gen: NAD HEENT: NGT CV: RRR Resp: coarse. regular. equal chest rise Abd: soft. MSK: edematous Neuro: awake. confused Current Medications Medications (Trade) Dose Ordered Sig/Deborah Route PRN Reason Start Time Stop Time Status Last Admin Dose Admin Acetaminophen (Tylenol) 650 mg Q4H PRN ORAL fever 07/08/19 19:45 08/07/19 19:44 Allopurinol (allopurinoL) 300 mg DAILY ORAL 07/14/19 09:00 08/13/19 08:59 07/20/19 08:46 Carvedilol (Coreg) 6.25 mg EVERY 12 HOURS NG 07/18/19 10:45 08/17/19 10:44 07/20/19 08:46 Chlorhexidine Gluconate (Leslie-Hex 2%) 1 applic DAILY@2000 TOPIC 07/19/19 20:00 10/17/19 19:59 Dextrose (Dextrose 50%) 25 ml Q30M PRN IV Hypoglycemia 07/13/19 14:00 10/11/19 13:59 07/15/19 21:31 Dextrose (Dextrose 50%) 50 ml Q30M PRN IV Hypoglycemia 07/13/19 14:00 10/11/19 13:59 07/14/19 11:33 Fluconazole/ Sodium Chloride 100 ml @ 100 mls/hr Q24H IV 07/18/19 17:00 07/25/19 16:59 07/20/19 17:10 Heparin Sodium/ Sodium Chloride (Heparin 1000 units/500ml Premix) 1,000 unit ONCE PRN IV PICC LINE PLACEMENT 07/20/19 11:30 07/21/19 23:59 Hydralazine HCl (Apresoline) 25 mg Q4HR PRN ORAL BP over 160 systolic 07/09/19 14:45 10/07/19 14:44 07/18/19 08:31 Insulin Aspart (NovoLOG) BEFORE MEALS AND HS SUBQ 07/13/19 16:30 10/11/19 16:29 Lansoprazole (Prevacid) 30 mg BID NG 07/19/19 18:00 08/18/19 08:59 07/20/19 17:09 Lidocaine HCl (Xylocaine 1% 30ml) 30 ml ONCE PRN INJ PICC LINE 07/20/19 11:30 07/21/19 23:59 Linaclotide (Linzess) 290 mcg BEFORE BREAKFAST ORAL 07/19/19 06:30 10/17/19 06:29 07/20/19 07:07 Nitroglycerin (Ntg) 0.4 mg Q5M PRN SL Prn Chest Pain 07/08/19 19:45 08/07/19 19:44 Nitroglycerin (Ntg) 1 patch Q24H TDERMAL 07/10/19 13:00 08/09/19 12:59 07/20/19 12:14 Ondansetron HCl (Zofran) 4 mg Q6H PRN IVP Nausea & Vomiting 07/08/19 19:45 08/07/19 19:44 Polyethylene Glycol (Miralax) 17 gm DAILYPRN PRN ORAL Constipation 07/08/19 19:45 08/07/19 19:44 Sodium Citrate (Bicitra) 30 ml EVERY 12 HOURS NG 07/19/19 21:00 08/16/19 11:59 07/20/19 08:46 Trimethoprim/ Sulfamethoxazole (Bactrim Single Strength) 1 tab DAILY ORAL 07/13/19 09:00 08/18/19 23:59 07/20/19 08:46 Olegario Carroll MD Jul 20, 2019 20:04
--- NOTE | 2019-07-20 22:54 | Diagnostic Imaging Report ---
EXAM: XR Abdomen, 2 Views CLINICAL HISTORY: NGT TECHNIQUE: Frontal view of the abdomen/pelvis with upright view of the abdomen. COMPARISON: Prior study 0513 hours same date. FINDINGS: Lower thorax: Ill defined and incompletely seen interstitial thickening and ill-defined pulmonary opacities not well-seen, if there is concern for chest pathology recommend dedicated imaging. Intraperitoneal space: No free air. Gastrointestinal tract: Unremarkable. No dilation. Bones/joints: Right 9th and 10th rib chronicity unknown nondisplaced rib fractures. Osteopenia and degenerative spine findings. Tubes, lines and devices: Enteric tube with tip and proximal sideport below the gastroesophageal junction. Other findings: No acute abdominal abnormality. IMPRESSION: 1. Enteric tube with tip and proximal sideport below the gastroesophageal junction. 2. Ill defined and incompletely seen interstitial thickening and ill- defined pulmonary opacities not well-seen, if there is concern for chest pathology recommend dedicated imaging. 3. No acute abdominal abnormality. 4. Right 9th and 10th rib chronicity unknown nondisplaced rib fractures.
[2019-07-21] VITALS: BP 100/57
[2019-07-21 04:00] VITALS: BP 107/64
[2019-07-21] MEDS: NovoLOG Insulin Flexpen SUBQ SCH ×4 (06:30→21:00)
[2019-07-21 07:40] LABS: PHOSPHORUS 3.7 MG/DL (2.5-4.9)
[2019-07-21 07:41] LABS: BASOPHILS % (AUTO) 0.3 % (0.0-2.0); EOSINOPHILS % (AUTO) 3.7 % (0.0-3.0); HEMATOCRIT 24.8 % (42.0-52.0); HEMOGLOBIN 8.2 G/DL (14.2-18.0); LYMPHOCYTES % (AUTO) 28.8 % (20.0-45.0); MEAN CORPUSCULAR VOLUME 82 FL (80-99); NEUTROPHILS % (AUTO) 61.2 % (45.0-75.0); PLATELET COUNT 125 K/UL (150-450); RED BLOOD COUNT 3.01 M/UL (4.70-6.10); RED CELL DISTRIBUTION WIDTH 17.8 % (11.6-14.8); WHITE BLOOD COUNT 10.9 K/UL (4.8-10.8)
[2019-07-21 07:53] LABS: ALANINE AMINOTRANSFERASE 8 U/L (12-78); ALBUMIN 1.3 G/DL (3.4-5.0); ALBUMIN/GLOBULIN RATIO 0.3 (1.0-2.7); ALKALINE PHOSPHATASE 129 U/L (46-116); AMYLASE 205 U/L (25-115); ANION GAP 10 mmol/L (5-15); ASPARTATE AMINO TRANSFERASE 23 U/L (15-37); BILIRUBIN,TOTAL 0.2 MG/DL (0.2-1.0); BLOOD UREA NITROGEN 41 mg/dL (7-18); CALCIUM 9.1 MG/DL (8.5-10.1); CARBON DIOXIDE 24 MMOL/L (21-32); CHLORIDE 119 MMOL/L (98-107); CREATININE 2.1 MG/DL (0.55-1.30); POTASSIUM 3.2 MMOL/L (3.5-5.1); SODIUM 153 MMOL/L (136-145)
--- NOTE | 2019-07-21 07:55 | Pulmonology Progress Note ---
Assessment/Plan Problems: (1) Sepsis (2) Altered level of consciousness (3) COPD (chronic obstructive pulmonary disease) (4) Pancreatitis (5) Decubitus skin ulcer (6) Hypertension (7) BPH (benign prostatic hyperplasia) (8) HIV disease Assessment/Plan WBC lower today, h/h stable, OB stool negative absolute CD4 count noted mental status improved wound care iv abx adams culture, VRE positive, BC negative f/u amylase lipase has NG tube now pt refusing meds at times dvt prophylaxis. Subjective ROS Limited/Unobtainable: No Constitutional: Reports: no symptoms HEENT: Repors: no symptoms Allergies: Coded Allergies: No Known Allergies (Unverified , 03/02/19) Objective Last 24 Hour Vital Signs Date Time Temp Pulse Resp B/P (MAP) Pulse Ox O2 Delivery O2 Flow Rate FiO2 07/21/19 04:00 98.8 73 20 107/64 (78) 94 07/21/19 00:00 97.3 80 20 100/57 (71) 94 07/20/19 23:32 82 122/65 07/20/19 21:00 Room Air 07/20/19 20:00 97.5 82 21 119/60 (79) 95 07/20/19 16:00 97.5 80 20 121/68 (85) 95 07/20/19 12:14 106/66 07/20/19 12:00 97.3 73 20 106/66 (79) 95 07/20/19 09:00 Room Air 07/20/19 08:46 80 144/82 07/20/19 08:00 97.2 80 18 144/82 (102) 96 Intake and Output 07/20/19 07/21/19 19:00 07:00 Intake Total 1030 ml 680 ml Output Total 900 ml Balance 1030 ml -220 ml Free Water 200 ml 200 ml IV Total 110 ml Tube Feeding 720 ml 480 ml Output Urine Total 900 ml # Voids 1 # Bowel Movements 1 1 Objective General Appearance: cachectic HEENT: normocephalic Respiratory/Chest: chest wall non-tender, lungs clear Cardiovascular: normal rate, regular rhythm Abdomen: normal bowel sounds, no organomegaly Extremities: no cyanosis Bed bound Laboratory Tests 07/21/19 04:58: White Blood Count 10.9H, Red Blood Count 3.01L, Hemoglobin 8.2L, Hematocrit 24.8L, Mean Corpuscular Volume 82, Mean Corpuscular Hemoglobin 27.3, Mean Corpuscular Hemoglobin Concent 33.1, Red Cell Distribution Width 17.8H, Platelet Count 125L, Mean Platelet Volume 9.4, Neutrophils (%) (Auto) 61.2, Lymphocytes (%) (Auto) 28.8, Monocytes (%) (Auto) 6.0, Eosinophils (%) (Auto) 3.7H, Basophils (%) (Auto) 0.3, Sodium Level [Pending], Potassium Level [Pending ], Chloride Level [Pending], Carbon Dioxide Level [Pending], Blood Urea Nitrogen [Pending], Creatinine [Pending], Estimat Glomerular Filtration Rate [ Pending], Glucose Level [Pending], Uric Acid 8.4H, Calcium Level [Pending], Phosphorus Level 3.7, Magnesium Level 1.8, Total Bilirubin [Pending], Aspartate Amino Transf (AST/SGOT) [Pending], Alanine Aminotransferase (ALT/SGPT) [Pending] , Alkaline Phosphatase [Pending], Total Protein [Pending], Albumin [Pending], Globulin [Pending], Amylase Level [Pending], Lipase [Pending] Current Medications Medications (Trade) Dose Ordered Sig/Deborah Route PRN Reason Start Time Stop Time Status Last Admin Dose Admin Acetaminophen (Tylenol) 650 mg Q4H PRN ORAL fever 07/08/19 19:45 08/07/19 19:44 Allopurinol (allopurinoL) 300 mg DAILY ORAL 07/14/19 09:00 08/13/19 08:59 07/20/19 08:46 Carvedilol (Coreg) 6.25 mg EVERY 12 HOURS NG 07/18/19 10:45 08/17/19 10:44 07/20/19 23:32 Chlorhexidine Gluconate (Leslie-Hex 2%) 1 applic DAILY@1999 TOPIC 07/19/19 20:00 10/17/19 19:59 Dextrose (Dextrose 50%) 25 ml Q30M PRN IV Hypoglycemia 07/13/19 14:00 10/11/19 13:59 07/15/19 21:31 Dextrose (Dextrose 50%) 50 ml Q30M PRN IV Hypoglycemia 07/13/19 14:00 10/11/19 13:59 07/14/19 11:33 Fluconazole/ Sodium Chloride 100 ml @ 100 mls/hr Q24H IV 07/18/19 17:00 07/25/19 16:59 07/20/19 17:10 Heparin Sodium/ Sodium Chloride (Heparin 1000 units/500ml Premix) 1,000 unit ONCE PRN IV PICC LINE PLACEMENT 07/20/19 11:30 07/21/19 23:59 Hydralazine HCl (Apresoline) 25 mg Q4HR PRN ORAL BP over 160 systolic 07/09/19 14:45 10/07/19 14:44 07/18/19 08:31 Insulin Aspart (NovoLOG) BEFORE MEALS AND HS SUBQ 07/13/19 16:30 10/11/19 16:29 Lansoprazole (Prevacid) 30 mg BID NG 07/19/19 18:00 08/18/19 08:59 07/20/19 17:09 Lidocaine HCl (Xylocaine 1% 30ml) 30 ml ONCE PRN INJ PICC LINE 07/20/19 11:30 07/21/19 23:59 Linaclotide (Linzess) 290 mcg BEFORE BREAKFAST ORAL 07/19/19 06:30 10/17/19 06:29 07/21/19 06:35 Nitroglycerin (Ntg) 0.4 mg Q5M PRN SL Prn Chest Pain 07/08/19 19:45 08/07/19 19:44 Nitroglycerin (Ntg) 1 patch Q24H TDERMAL 07/10/19 13:00 08/09/19 12:59 07/20/19 12:14 Ondansetron HCl (Zofran) 4 mg Q6H PRN IVP Nausea & Vomiting 07/08/19 19:45 08/07/19 19:44 Polyethylene Glycol (Miralax) 17 gm DAILYPRN PRN ORAL Constipation 07/08/19 19:45 08/07/19 19:44 Sodium Citrate (Bicitra) 30 ml EVERY 12 HOURS NG 07/19/19 21:00 08/16/19 11:59 07/20/19 23:32 Trimethoprim/ Sulfamethoxazole (Bactrim Single Strength) 1 tab DAILY ORAL 07/13/19 09:00 08/18/19 23:59 07/20/19 08:46 Rico Chavarria MD Jul 21, 2019 07:55
[2019-07-21 08:00] VITALS: BP 122/73
[2019-07-21] MEDS: Sodium Citrate 30ml NG SCH (09:00)
--- NOTE | 2019-07-21 09:05 | General Progress Note ---
Assessment/Plan Assessment/Plan: 1. History of HIV. 2.thrombocytopenia 3. Anemia. 4. Sepsis. 5. UTIs with MRSA. 6. Hypertension. 7. COPD. 8. BPH. 9. Sacral decubital ulcerations, stage III. 10. Malnutrition. 11. pancreatitis 12. Dilated IHD CT of abd and pelvic>>>reviewed repeat labs in am improving WBC abx per ID NGTF for now but may need PEG plan PEG this week off heparin given thrombocytopenia Subjective ROS Limited/Unobtainable: No Allergies: Coded Allergies: No Known Allergies (Unverified , 03/02/19) Subjective confused pulled NGT now replaced Objective Last 24 Hour Vital Signs Date Time Temp Pulse Resp B/P (MAP) Pulse Ox O2 Delivery O2 Flow Rate FiO2 07/21/19 04:00 98.8 73 20 107/64 (78) 94 07/21/19 00:00 97.3 80 20 100/57 (71) 94 07/20/19 23:32 82 122/65 07/20/19 21:00 Room Air 07/20/19 20:00 97.5 82 21 119/60 (79) 95 07/20/19 16:00 97.5 80 20 121/68 (85) 95 07/20/19 12:14 106/66 07/20/19 12:00 97.3 73 20 106/66 (79) 95 Intake and Output 07/20/19 07/21/19 19:00 07:00 Intake Total 1030 ml 680 ml Output Total 900 ml Balance 1030 ml -220 ml Free Water 200 ml 200 ml IV Total 110 ml Tube Feeding 720 ml 480 ml Output Urine Total 900 ml # Voids 1 # Bowel Movements 1 1 Laboratory Tests 07/21/19 04:58: White Blood Count 10.9H, Red Blood Count 3.01L, Hemoglobin 8.2L, Hematocrit 24.8L, Mean Corpuscular Volume 82, Mean Corpuscular Hemoglobin 27.3, Mean Corpuscular Hemoglobin Concent 33.1, Red Cell Distribution Width 17.8H, Platelet Count 125L, Mean Platelet Volume 9.4, Neutrophils (%) (Auto) 61.2, Lymphocytes (%) (Auto) 28.8, Monocytes (%) (Auto) 6.0, Eosinophils (%) (Auto) 3.7H, Basophils (%) (Auto) 0.3, Sodium Level 153H, Potassium Level 3.2L, Chloride Level 119H, Carbon Dioxide Level 24, Anion Gap 10, Blood Urea Nitrogen 41H, Creatinine 2.1H, Estimat Glomerular Filtration Rate 38.7, Glucose Level 106 , Uric Acid 8.4H, Calcium Level 9.1, Phosphorus Level 3.7, Magnesium Level 1.8, Total Bilirubin 0.2, Aspartate Amino Transf (AST/SGOT) 23, Alanine Aminotransferase (ALT/SGPT) 8L, Alkaline Phosphatase 129H, Total Protein 6.1L, Albumin 1.3L, Globulin 4.8, Albumin/Globulin Ratio 0.3L, Amylase Level 205H, Lipase 1491H Height (Feet): 6 Height (Inches): 0.00 Weight (Pounds): 167 General Appearance: lethargic EENT: TMs normal Neck: supple Cardiovascular: normal rate Respiratory/Chest: decreased breath sounds Abdomen: normal bowel sounds, non tender, soft Extremities: non-tender Mansoor Interiano MD Jul 21, 2019 09:05
[2019-07-21] MEDS: Bactrim SS Tab ORAL SCH (09:30)
[2019-07-21] MEDS: Carvedilol 6.25mg Tab NG SCH ×2 (09:30→21:43)
--- NOTE | 2019-07-21 10:20 | Nephrology Progress Note ---
Assessment/Plan Problem List: (1) Pancreatitis (2) Hypothermia (3) Hypertension (4) COPD (chronic obstructive pulmonary disease) (5) BPH (benign prostatic hyperplasia) (6) HIV disease (7) Anemia Assessment Acute renal failure, partly dehydration Anemia Hypoalbuminemia High lipase level of 2000, Pancreatitis UTI Hypothermia Toxic metabolic encephalopathy Sepsis Decubitus skin ulcer Hypothyroid Plan Serum creatinine 2.1 stable Will cut down on Bicitra 1 L D5W for hypernatremia Trial of albumin and Lasix as needed Patient has Macario catheter so will discontinue Flomax Suggested blood transfusion for low hemoglobin as needed Add Coreg Remains full code Today's labs were reviewed Previously ; patient refusing most of his oral medications, however now has NG tube Will attempt to discontinue what can be changing to intravenous from p.o. and or NG tube route magnesium sulfate and potassium as needed 24-hour urine measurement for total protein results noted unremarkable Add allopurinol 2D echocardiogram results suggestive of ejection fraction of 50% Kidney ultrasound unremarkable Urine studies Anemia work-up noted Monitor renal parameters Antibiotics Avoid nephrotoxic's Per orders Subjective ROS Limited/Unobtainable: No Constitutional: Reports: malaise, weakness Objective Objective Last 24 Hour Vital Signs Date Time Temp Pulse Resp B/P (MAP) Pulse Ox O2 Delivery O2 Flow Rate FiO2 07/21/19 09:30 83 122/73 07/21/19 09:00 Room Air 07/21/19 04:00 98.8 73 20 107/64 (78) 94 07/21/19 00:00 97.3 80 20 100/57 (71) 94 07/20/19 23:32 82 122/65 07/20/19 21:00 Room Air 07/20/19 20:00 97.5 82 21 119/60 (79) 95 07/20/19 16:00 97.5 80 20 121/68 (85) 95 07/20/19 12:14 106/66 07/20/19 12:00 97.3 73 20 106/66 (79) 95 Intake and Output 07/20/19 07/21/19 19:00 07:00 Intake Total 1030 ml 680 ml Output Total 900 ml Balance 1030 ml -220 ml Free Water 200 ml 200 ml IV Total 110 ml Tube Feeding 720 ml 480 ml Output Urine Total 900 ml # Voids 1 # Bowel Movements 1 1 Laboratory Tests 07/21/19 04:58: White Blood Count 10.9H, Red Blood Count 3.01L, Hemoglobin 8.2L, Hematocrit 24.8L, Mean Corpuscular Volume 82, Mean Corpuscular Hemoglobin 27.3, Mean Corpuscular Hemoglobin Concent 33.1, Red Cell Distribution Width 17.8H, Platelet Count 125L, Mean Platelet Volume 9.4, Neutrophils (%) (Auto) 61.2, Lymphocytes (%) (Auto) 28.8, Monocytes (%) (Auto) 6.0, Eosinophils (%) (Auto) 3.7H, Basophils (%) (Auto) 0.3, Sodium Level 153H, Potassium Level 3.2L, Chloride Level 119H, Carbon Dioxide Level 24, Anion Gap 10, Blood Urea Nitrogen 41H, Creatinine 2.1H, Estimat Glomerular Filtration Rate 38.7, Glucose Level 106 , Uric Acid 8.4H, Calcium Level 9.1, Phosphorus Level 3.7, Magnesium Level 1.8, Total Bilirubin 0.2, Aspartate Amino Transf (AST/SGOT) 23, Alanine Aminotransferase (ALT/SGPT) 8L, Alkaline Phosphatase 129H, Total Protein 6.1L, Albumin 1.3L, Globulin 4.8, Albumin/Globulin Ratio 0.3L, Amylase Level 205H, Lipase 1491H Height (Feet): 6 Height (Inches): 0.00 Weight (Pounds): 167 General Appearance: no apparent distress EENT: other - NG tube in place Cardiovascular: normal rate Respiratory/Chest: decreased breath sounds Abdomen: soft Objective No change Zander Razo MD Jul 21, 2019 10:20
--- NOTE | 2019-07-21 11:51 | Infectious Diseases Prog Note ---
Assessment/Plan Assessment/Plan 63yo man admitted with abdominal pain and diarrhea. Afebrile Leukocytosis ( Ch, doubt ID related ) ; fluctuating, Sp ? ALOC, improving probable UTI 07/14 UA positive, UCx: Ilda albicans Hx of Diarrhea/colitis- 07/17 CT Abd: Anasarca, with severe edema of the subcutaneous fat, abdominal retroperitoneal fat. There is also trace intraperitoneal fluid and bilateral pleural effusions. No definite acute abdominal process otherwise. No evidence of bowel obstruction. Evidence of rectal fecal incontinence. Nasogastric tube in good position. Retained urine within the bladder lumen, despite the presence of a Macairo catheter. Mild bladder wall thickening. Indicate cystitis. Bilateral pleural effusions, as mentioned earlier. Resultant compressive atelectatic changes at both lung bases. Evidence of bullous COPD. Hazy parenchymal opacity may be related to COPD, but could also indicate mild pulmonary edema given other findings of anasarca Severe bilateral hip degenerative changes, also previously demonstrated. 03/02 CT: Suspected colitis with the thickening of the wall the colon. Correlate clinically. Thickening of the wall the urinary bladder. Correlate for cystitis. C diff negative x2 stool cx negative stool o/p x1 negative -Negative: E. histolytica ab, Echinococcus ab pt has refused colonoscopy in the past HIV Screen positive- new diagnosis in February 2019 HIV-1 Abt positive. 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 03/04/19 CD4 180 (7.2%) 06/2009 CD4 143 RPR negative no evid of biliary - US : Mild intrahepatic biliary ductal dilatation. MRI of brain ( could not be done ) COPD. Hypertension. BPH. History of cocaine abuse in the past. Bedbound. 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 Subjective Allergies: Coded Allergies: No Known Allergies (Unverified , 03/02/19) Subjective afebrile no acute event Objective Vital Signs Last 24 Hour Vital Signs Date Time Temp Pulse Resp B/P (MAP) Pulse Ox O2 Delivery O2 Flow Rate FiO2 07/21/19 09:30 83 122/73 07/21/19 09:00 Room Air 07/21/19 08:00 97.6 83 19 122/73 (89) 96 07/21/19 04:00 98.8 73 20 107/64 (78) 94 07/21/19 00:00 97.3 80 20 100/57 (71) 94 07/20/19 23:32 82 122/65 07/20/19 21:00 Room Air 07/20/19 20:00 97.5 82 21 119/60 (79) 95 07/20/19 16:00 97.5 80 20 121/68 (85) 95 07/20/19 12:14 106/66 07/20/19 12:00 97.3 73 20 106/66 (79) 95 Height (Feet): 6 Height (Inches): 0.00 Weight (Pounds): 167 HEENT: anicteric Respiratory/Chest: no respiratory distress Cardiovascular: regularly irregular Abdomen: no organomegaly Laboratory Tests Test 07/21/19 04:58 White Blood Count 10.9 K/UL (4.8-10.8) H Red Blood Count 3.01 M/UL (4.70-6.10) L Hemoglobin 8.2 G/DL (14.2-18.0) L Hematocrit 24.8 % (42.0-52.0) L Mean Corpuscular Volume 82 FL (80-99) Mean Corpuscular Hemoglobin 27.3 PG (27.0-31.0) Mean Corpuscular Hemoglobin Concent 33.1 G/DL (32.0-36.0) Red Cell Distribution Width 17.8 % (11.6-14.8) H Platelet Count 125 K/UL (150-450) L Mean Platelet Volume 9.4 FL (6.5-10.1) Neutrophils (%) (Auto) 61.2 % (45.0-75.0) Lymphocytes (%) (Auto) 28.8 % (20.0-45.0) Monocytes (%) (Auto) 6.0 % (1.0-10.0) Eosinophils (%) (Auto) 3.7 % (0.0-3.0) H Basophils (%) (Auto) 0.3 % (0.0-2.0) Sodium Level 153 MMOL/L (136-145) H Potassium Level 3.2 MMOL/L (3.5-5.1) L Chloride Level 119 MMOL/L (98-107) H Carbon Dioxide Level 24 MMOL/L (21-32) Anion Gap 10 mmol/L (5-15) Blood Urea Nitrogen 41 mg/dL (7-18) H Creatinine 2.1 MG/DL (0.55-1.30) H Estimat Glomerular Filtration Rate 38.7 mL/min (>60) Glucose Level 106 MG/DL (74-106) Uric Acid 8.4 MG/DL (2.6-7.2) H Calcium Level 9.1 MG/DL (8.5-10.1) Phosphorus Level 3.7 MG/DL (2.5-4.9) Magnesium Level 1.8 MG/DL (1.8-2.4) Total Bilirubin 0.2 MG/DL (0.2-1.0) Aspartate Amino Transf (AST/SGOT) 23 U/L (15-37) Alanine Aminotransferase (ALT/SGPT) 8 U/L (12-78) L Alkaline Phosphatase 129 U/L (46-116) H Total Protein 6.1 G/DL (6.4-8.2) L Albumin 1.3 G/DL (3.4-5.0) L Globulin 4.8 g/dL Albumin/Globulin Ratio 0.3 (1.0-2.7) L Amylase Level 205 U/L (25-115) H Lipase 1491 U/L (73-393) H Current Medications Medications (Trade) Dose Ordered Sig/Deborah Route PRN Reason Start Time Stop Time Status Last Admin Dose Admin Acetaminophen (Tylenol) 650 mg Q4H PRN ORAL fever 07/08/19 19:45 08/07/19 19:44 Allopurinol (allopurinoL) 300 mg DAILY ORAL 07/14/19 09:00 08/13/19 08:59 07/21/19 09:30 Carvedilol (Coreg) 6.25 mg EVERY 12 HOURS NG 07/18/19 10:45 08/17/19 10:44 07/21/19 09:30 Chlorhexidine Gluconate (Leslie-Hex 2%) 1 applic DAILY@2000 TOPIC 07/19/19 20:00 10/17/19 19:59 Dextrose 1,000 ml @ 100 mls/hr Q10H IV 07/21/19 09:15 08/20/19 09:14 07/21/19 09:27 Dextrose (Dextrose 50%) 25 ml Q30M PRN IV Hypoglycemia 07/13/19 14:00 10/11/19 13:59 07/15/19 21:31 Dextrose (Dextrose 50%) 50 ml Q30M PRN IV Hypoglycemia 07/13/19 14:00 10/11/19 13:59 07/14/19 11:33 Fluconazole/ Sodium Chloride 100 ml @ 100 mls/hr Q24H IV 07/18/19 17:00 07/25/19 16:59 07/20/19 17:10 Heparin Sodium/ Sodium Chloride (Heparin 1000 units/500ml Premix) 1,000 unit ONCE PRN IV PICC LINE PLACEMENT 07/20/19 11:30 07/21/19 23:59 Hydralazine HCl (Apresoline) 25 mg Q4HR PRN ORAL BP over 160 systolic 07/09/19 14:45 10/07/19 14:44 07/18/19 08:31 Insulin Aspart (NovoLOG) BEFORE MEALS AND HS SUBQ 07/13/19 16:30 10/11/19 16:29 Lansoprazole (Prevacid) 30 mg BID NG 07/19/19 18:00 08/18/19 08:59 07/21/19 09:29 Lidocaine HCl (Xylocaine 1% 30ml) 30 ml ONCE PRN INJ PICC LINE 07/20/19 11:30 07/21/19 23:59 Linaclotide (Linzess) 290 mcg BEFORE BREAKFAST ORAL 07/19/19 06:30 10/17/19 06:29 07/21/19 06:35 Nitroglycerin (Ntg) 0.4 mg Q5M PRN SL Prn Chest Pain 07/08/19 19:45 08/07/19 19:44 Nitroglycerin (Ntg) 1 patch Q24H TDERMAL 07/10/19 13:00 08/09/19 12:59 07/20/19 12:14 Ondansetron HCl (Zofran) 4 mg Q6H PRN IVP Nausea & Vomiting 07/08/19 19:45 08/07/19 19:44 Polyethylene Glycol (Miralax) 17 gm DAILYPRN PRN ORAL Constipation 07/08/19 19:45 08/07/19 19:44 Potassium Chloride 100 ml @ 100 mls/hr Q1H IVPB 07/21/19 09:30 07/21/19 13:29 07/21/19 10:40 Trimethoprim/ Sulfamethoxazole (Bactrim Single Strength) 1 tab DAILY ORAL 07/13/19 09:00 08/18/19 23:59 07/21/19 09:30 Steve Rivas MD Jul 21, 2019 11:51
[2019-07-21 12:00] VITALS: BP 118/77
[2019-07-21] MEDS: Nitroglycerin Patch 0.4mg TDERMAL SCH (12:16)
[2019-07-21 16:00] VITALS: BP 120/80
[2019-07-21 20:00] VITALS: BP 153/76
[2019-07-21] MEDS: Dyna-Hex 2% Top Sol 2oz TOPIC SCH (20:00)
[2019-07-22] VITALS: BP 134/70
[2019-07-22 04:00] VITALS: BP 109/68
[2019-07-22] MEDS: NovoLOG Insulin Flexpen SUBQ SCH ×4 (06:29→21:00)
[2019-07-22 07:03] LABS: BASOPHILS % (AUTO) 0.6 % (0.0-2.0); EOSINOPHILS % (AUTO) 3.1 % (0.0-3.0); LYMPHOCYTES % (AUTO) 28.2 % (20.0-45.0); MEAN CORPUSCULAR VOLUME 82 FL (80-99); MONOCYTES % (AUTO) 7.5 % (1.0-10.0); NEUTROPHILS % (AUTO) 60.6 % (45.0-75.0); PLATELET COUNT 148 K/UL (150-450); RED BLOOD COUNT 2.93 M/UL (4.70-6.10); RED CELL DISTRIBUTION WIDTH 17.5 % (11.6-14.8); WHITE BLOOD COUNT 12.1 K/UL (4.8-10.8)
--- NOTE | 2019-07-22 07:44 | Pulmonology Progress Note ---
Assessment/Plan Problems: (1) Sepsis (2) Altered level of consciousness (3) COPD (chronic obstructive pulmonary disease) (4) Pancreatitis (5) Decubitus skin ulcer (6) Hypertension (7) BPH (benign prostatic hyperplasia) (8) HIV disease Assessment/Plan WBC lower today, h/h stable, OB stool negative absolute CD4 count noted mental status improved wound care iv abx adams culture, VRE positive, BC negative f/u amylase lipase has NG tube now pt refusing meds at times dvt prophylaxis. Subjective ROS Limited/Unobtainable: Yes Constitutional: Reports: no symptoms HEENT: Repors: no symptoms Allergies: Coded Allergies: No Known Allergies (Unverified , 03/02/19) Objective Last 24 Hour Vital Signs Date Time Temp Pulse Resp B/P (MAP) Pulse Ox O2 Delivery O2 Flow Rate FiO2 07/22/19 04:00 98.1 97 20 109/68 (82) 97 07/22/19 00:00 97.1 76 20 134/70 (91) 97 07/21/19 21:43 81 153/76 07/21/19 21:00 Room Air 07/21/19 20:00 98.4 81 20 153/76 (101) 97 07/21/19 16:00 97.7 90 18 120/80 (93) 97 07/21/19 12:16 118/77 07/21/19 12:00 97.5 90 18 118/77 (91) 95 07/21/19 09:30 83 122/73 07/21/19 09:00 Room Air 07/21/19 08:00 97.6 83 19 122/73 (89) 96 Intake and Output 07/21/19 07/22/19 19:00 07:00 Intake Total 860 ml 560 ml Output Total 800 ml Balance 60 ml 560 ml Free Water 200 ml IV Total 800 ml Tube Feeding 60 ml 360 ml Output Urine Total 800 ml # Bowel Movements 1 1 Objective General Appearance: cachectic HEENT: normocephalic Respiratory/Chest: chest wall non-tender, lungs clear Cardiovascular: normal rate, regular rhythm Abdomen: normal bowel sounds, no organomegaly Extremities: no cyanosis Bed bound Laboratory Tests 07/22/19 05:45: White Blood Count 12.1H, Red Blood Count 2.93L, Hemoglobin 8.0L, Hematocrit 24.0L, Mean Corpuscular Volume 82, Mean Corpuscular Hemoglobin 27.3, Mean Corpuscular Hemoglobin Concent 33.3, Red Cell Distribution Width 17.5H, Platelet Count 148L, Mean Platelet Volume 9.4, Neutrophils (%) (Auto) 60.6, Lymphocytes (%) (Auto) 28.2, Monocytes (%) (Auto) 7.5, Eosinophils (%) (Auto) 3.1H, Basophils (%) (Auto) 0.6, Sodium Level [Pending], Potassium Level [Pending ], Chloride Level [Pending], Carbon Dioxide Level [Pending], Blood Urea Nitrogen [Pending], Creatinine [Pending], Estimat Glomerular Filtration Rate [ Pending], Glucose Level [Pending], Calcium Level [Pending] Current Medications Medications (Trade) Dose Ordered Sig/Deborah Route PRN Reason Start Time Stop Time Status Last Admin Dose Admin Acetaminophen (Tylenol) 650 mg Q4H PRN ORAL fever 07/08/19 19:45 08/07/19 19:44 Allopurinol (allopurinoL) 300 mg DAILY ORAL 07/14/19 09:00 08/13/19 08:59 07/21/19 09:30 Carvedilol (Coreg) 6.25 mg EVERY 12 HOURS NG 07/18/19 10:45 08/17/19 10:44 07/21/19 21:43 Chlorhexidine Gluconate (Leslie-Hex 2%) 1 applic DAILY@2000 TOPIC 07/19/19 20:00 10/17/19 19:59 Dextrose 1,000 ml @ 100 mls/hr Q10H IV 07/21/19 09:15 08/20/19 09:14 07/22/19 06:32 Dextrose (Dextrose 50%) 25 ml Q30M PRN IV Hypoglycemia 07/13/19 14:00 10/11/19 13:59 07/15/19 21:31 Dextrose (Dextrose 50%) 50 ml Q30M PRN IV Hypoglycemia 07/13/19 14:00 10/11/19 13:59 07/14/19 11:33 Hydralazine HCl (Apresoline) 25 mg Q4HR PRN ORAL BP over 160 systolic 07/09/19 14:45 10/07/19 14:44 07/18/19 08:31 Insulin Aspart (NovoLOG) BEFORE MEALS AND HS SUBQ 07/13/19 16:30 10/11/19 16:29 Lansoprazole (Prevacid) 30 mg BID NG 07/19/19 18:00 08/18/19 08:59 07/21/19 17:13 Linaclotide (Linzess) 290 mcg BEFORE BREAKFAST ORAL 07/19/19 06:30 10/17/19 06:29 07/22/19 06:32 Nitroglycerin (Ntg) 0.4 mg Q5M PRN SL Prn Chest Pain 07/08/19 19:45 08/07/19 19:44 Nitroglycerin (Ntg) 1 patch Q24H TDERMAL 07/10/19 13:00 08/09/19 12:59 07/21/19 12:16 Ondansetron HCl (Zofran) 4 mg Q6H PRN IVP Nausea & Vomiting 07/08/19 19:45 08/07/19 19:44 Polyethylene Glycol (Miralax) 17 gm DAILYPRN PRN ORAL Constipation 07/08/19 19:45 08/07/19 19:44 Trimethoprim/ Sulfamethoxazole (Bactrim Single Strength) 1 tab DAILY ORAL 07/13/19 09:00 08/18/19 23:59 07/21/19 09:30 Rico Chavarria MD Jul 22, 2019 07:44
[2019-07-22 07:51] LABS: ANION GAP 9 mmol/L (5-15); BLOOD UREA NITROGEN 40 mg/dL (7-18); CALCIUM 8.8 MG/DL (8.5-10.1); CARBON DIOXIDE 23 MMOL/L (21-32); CHLORIDE 115 MMOL/L (98-107); CREATININE 1.9 MG/DL (0.55-1.30); SODIUM 147 MMOL/L (136-145)
[2019-07-22 08:00] VITALS: BP 168/100
[2019-07-22] MEDS: Bactrim SS Tab ORAL SCH (09:39)
[2019-07-22] MEDS: Carvedilol 6.25mg Tab NG SCH (09:46)
[2019-07-22] MEDS: HydrALAZINE 25mg tab ORAL PRN (09:48)
--- NOTE | 2019-07-22 10:10 | General Progress Note ---
Assessment/Plan Assessment/Plan: 1. History of HIV. 2.thrombocytopenia 3. Anemia. 4. Sepsis. 5. UTIs with MRSA. 6. Hypertension. 7. COPD. 8. BPH. 9. Sacral decubital ulcerations, stage III. 10. Malnutrition. 11. pancreatitis 12. Dilated IHD CT of abd and pelvic>>>reviewed repeat labs in am improving WBC abx per ID NGTF for now but may need PEG plan PEG for tomorrow off heparin given thrombocytopenia Subjective ROS Limited/Unobtainable: No Allergies: Coded Allergies: No Known Allergies (Unverified , 03/02/19) Subjective confused pulled NGT now replaced Objective Last 24 Hour Vital Signs Date Time Temp Pulse Resp B/P (MAP) Pulse Ox O2 Delivery O2 Flow Rate FiO2 07/22/19 09:48 168/100 07/22/19 09:46 84 168/100 07/22/19 08:00 99.0 84 19 168/100 (122) 97 07/22/19 04:00 98.1 97 20 109/68 (82) 97 07/22/19 00:00 97.1 76 20 134/70 (91) 97 07/21/19 21:43 81 153/76 07/21/19 21:00 Room Air 07/21/19 20:00 98.4 81 20 153/76 (101) 97 07/21/19 16:00 97.7 90 18 120/80 (93) 97 07/21/19 12:16 118/77 07/21/19 12:00 97.5 90 18 118/77 (91) 95 Intake and Output 07/21/19 07/22/19 19:00 07:00 Intake Total 860 ml 920 ml Output Total 800 ml Balance 60 ml 920 ml Free Water 200 ml IV Total 800 ml Tube Feeding 60 ml 720 ml Output Urine Total 800 ml # Bowel Movements 1 1 Laboratory Tests 07/22/19 05:45: White Blood Count 12.1H, Red Blood Count 2.93L, Hemoglobin 8.0L, Hematocrit 24.0L, Mean Corpuscular Volume 82, Mean Corpuscular Hemoglobin 27.3, Mean Corpuscular Hemoglobin Concent 33.3, Red Cell Distribution Width 17.5H, Platelet Count 148L, Mean Platelet Volume 9.4, Neutrophils (%) (Auto) 60.6, Lymphocytes (%) (Auto) 28.2, Monocytes (%) (Auto) 7.5, Eosinophils (%) (Auto) 3.1H, Basophils (%) (Auto) 0.6, Sodium Level 147H, Potassium Level 4.0, Chloride Level 115H, Carbon Dioxide Level 23, Anion Gap 9, Blood Urea Nitrogen 40H, Creatinine 1.9H, Estimat Glomerular Filtration Rate 43.4, Glucose Level 91 , Calcium Level 8.8 Height (Feet): 6 Height (Inches): 0.00 Weight (Pounds): 167 General Appearance: no apparent distress, lethargic EENT: normal ENT inspection Neck: supple Cardiovascular: normal rate Respiratory/Chest: decreased breath sounds Abdomen: normal bowel sounds, non tender, soft Extremities: non-tender Mansoor Interiano MD Jul 22, 2019 10:10
--- NOTE | 2019-07-22 10:19 | Nephrology Progress Note ---
Assessment/Plan Problem List: (1) Pancreatitis (2) Hypothermia (3) Hypertension (4) COPD (chronic obstructive pulmonary disease) (5) BPH (benign prostatic hyperplasia) (6) HIV disease (7) Anemia Assessment Acute renal failure, partly dehydration Anemia Hypoalbuminemia High lipase level of 1999, Pancreatitis UTI Hypothermia Toxic metabolic encephalopathy Sepsis Decubitus skin ulcer Hypothyroid Plan Serum creatinine down to 1.9 today Will discontinue Bicitra 1 L D5W for hypernatremia Trial of albumin and Lasix as needed Patient has Macario catheter so will discontinue Flomax Suggested blood transfusion for low hemoglobin as needed Add Coreg increase the dose accordingly as needed Remains full code Today's labs were reviewed Previously ; patient refusing most of his oral medications, however now has NG tube Will attempt to discontinue what can be changing to intravenous from p.o. and or NG tube route magnesium sulfate and potassium as needed 24-hour urine measurement for total protein results noted unremarkable Add allopurinol 2D echocardiogram results suggestive of ejection fraction of 50% Kidney ultrasound unremarkable Urine studies Anemia work-up noted Monitor renal parameters Antibiotics Avoid nephrotoxic's Per orders Subjective ROS Limited/Unobtainable: No Constitutional: Reports: malaise, weakness Objective Objective Last 24 Hour Vital Signs Date Time Temp Pulse Resp B/P (MAP) Pulse Ox O2 Delivery O2 Flow Rate FiO2 07/22/19 09:48 168/100 07/22/19 09:46 84 168/100 07/22/19 08:00 99.0 84 19 168/100 (122) 97 07/22/19 04:00 98.1 97 20 109/68 (82) 97 07/22/19 00:00 97.1 76 20 134/70 (91) 97 07/21/19 21:43 81 153/76 07/21/19 21:00 Room Air 07/21/19 20:00 98.4 81 20 153/76 (101) 97 07/21/19 16:00 97.7 90 18 120/80 (93) 97 07/21/19 12:16 118/77 07/21/19 12:00 97.5 90 18 118/77 (91) 95 Intake and Output 07/21/19 07/22/19 19:00 07:00 Intake Total 860 ml 920 ml Output Total 800 ml Balance 60 ml 920 ml Free Water 200 ml IV Total 800 ml Tube Feeding 60 ml 720 ml Output Urine Total 800 ml # Bowel Movements 1 1 Laboratory Tests 07/22/19 05:45: White Blood Count 12.1H, Red Blood Count 2.93L, Hemoglobin 8.0L, Hematocrit 24.0L, Mean Corpuscular Volume 82, Mean Corpuscular Hemoglobin 27.3, Mean Corpuscular Hemoglobin Concent 33.3, Red Cell Distribution Width 17.5H, Platelet Count 148L, Mean Platelet Volume 9.4, Neutrophils (%) (Auto) 60.6, Lymphocytes (%) (Auto) 28.2, Monocytes (%) (Auto) 7.5, Eosinophils (%) (Auto) 3.1H, Basophils (%) (Auto) 0.6, Sodium Level 147H, Potassium Level 4.0, Chloride Level 115H, Carbon Dioxide Level 23, Anion Gap 9, Blood Urea Nitrogen 40H, Creatinine 1.9H, Estimat Glomerular Filtration Rate 43.4, Glucose Level 91 , Calcium Level 8.8 Height (Feet): 6 Height (Inches): 0.00 Weight (Pounds): 167 General Appearance: no apparent distress, lethargic EENT: other - NG tube in place Cardiovascular: normal rate Respiratory/Chest: decreased breath sounds Abdomen: distended Objective No change Zander Razo MD Jul 22, 2019 10:18
[2019-07-22 12:00] VITALS: BP 146/79
[2019-07-22] MEDS: Nitroglycerin Patch 0.4mg TDERMAL SCH (13:37)
[2019-07-22 16:00] VITALS: BP 144/78
[2019-07-22 20:00] VITALS: BP 150/86
[2019-07-22] MEDS: Dyna-Hex 2% Top Sol 2oz TOPIC SCH (20:00)
[2019-07-22] MEDS: Carvedilol 12.5mg tab NG SCH (21:07)
[2019-07-23] VITALS (12 sets, daily range): BP systolic 104–152; BP diastolic 53–91
[2019-07-23] MEDS: NovoLOG Insulin Flexpen SUBQ SCH ×4 (05:46→20:39)
[2019-07-23 07:59] LABS: HEMATOCRIT 22.7 % (42.0-52.0); HEMOGLOBIN 7.5 G/DL (14.2-18.0); MEAN CORPUSCULAR VOLUME 82 FL (80-99); PLATELET COUNT 148 K/UL (150-450); RED BLOOD COUNT 2.76 M/UL (4.70-6.10); WHITE BLOOD COUNT 10.4 K/UL (4.8-10.8)
[2019-07-23 08:29] LABS: PHOSPHORUS 3.9 MG/DL (2.5-4.9)
[2019-07-23 08:35] LABS: ALANINE AMINOTRANSFERASE 12 U/L (12-78); ALBUMIN 1.2 G/DL (3.4-5.0); ALBUMIN/GLOBULIN RATIO 0.2 (1.0-2.7); ALKALINE PHOSPHATASE 124 U/L (46-116); ANION GAP 12 mmol/L (5-15); ASPARTATE AMINO TRANSFERASE 27 U/L (15-37); BILIRUBIN,TOTAL 0.2 MG/DL (0.2-1.0); BLOOD UREA NITROGEN 37 mg/dL (7-18); CALCIUM 9.2 MG/DL (8.5-10.1); CARBON DIOXIDE 20 MMOL/L (21-32); CHLORIDE 113 MMOL/L (98-107); CREATININE 1.7 MG/DL (0.55-1.30); POTASSIUM 4.2 MMOL/L (3.5-5.1); SODIUM 144 MMOL/L (136-145)
[2019-07-23] MEDS: Bactrim SS Tab ORAL SCH (08:47)
[2019-07-23] MEDS: Carvedilol 12.5mg tab NG SCH ×2 (08:47→21:16)
--- NOTE | 2019-07-23 08:48 | Pre-Procedure Note/Attestation ---
Pre-Procedure Note/Attestation Complete Prior to Procedure Planned Procedure: not applicable Procedure Narrative: egd/peg Indications for Procedure Pre-Operative Diagnosis: dysphagia Attestation I attest that I discussed the nature of the procedure; its benefits; risks and complications; and alternatives (and the risks and benefits of such alternatives ), prior to the procedure, with the patient (or the patient's legal artists' booking representative). I attest that, if there was a reasonable possibility of needing a blood transfusion, the patient (or the patient's legal artists' booking representative) was given the [facility] standardized written summary, pursuant to the [employer] Blood Safety Act ([place] Health and Safety Code # 1645, as amended). I attest that I re-evaluated the patient just prior to the surgery and that there has been no change in the patient's H&P, except as documented below: Mansoor Interiano MD Jul 23, 2019 08:48
[2019-07-23] MEDS ORDERED: cefOXitin 1gm Inj ONE (10:27)
[2019-07-23] MEDS ORDERED: Propofol 200mg/20ml IV ONE (10:30)
[2019-07-23] MEDS ORDERED: Lidocaine 1% MPF 10mg/ml 5ml ONE (10:30)
--- NOTE | 2019-07-23 10:35 | Nephrology Progress Note ---
Assessment/Plan Problem List: (1) Pancreatitis (2) Hypothermia (3) Hypertension (4) COPD (chronic obstructive pulmonary disease) (5) BPH (benign prostatic hyperplasia) (6) HIV disease (7) Anemia (8) Hypoalbuminemia Assessment Acute renal failure, partly dehydration Anemia Hypoalbuminemia High lipase level of 1999, Pancreatitis UTI Hypothermia Toxic metabolic encephalopathy Sepsis Decubitus skin ulcer Hypothyroid Plan Serum creatinine down to 1.7 today Will discontinue Bicitra 1 L D5W for hypernatremia Trial of albumin and Lasix as needed Patient has Macario catheter so will discontinue Flomax Suggested blood transfusion for low hemoglobin as needed Add Coreg increase the dose accordingly as needed Remains full code Today's labs were reviewed Previously ; patient refusing most of his oral medications, however now has NG tube Will attempt to discontinue what can be changing to intravenous from p.o. and or NG tube route magnesium sulfate and potassium as needed 24-hour urine measurement for total protein results noted unremarkable Add allopurinol 2D echocardiogram results suggestive of ejection fraction of 50% Kidney ultrasound unremarkable Urine studies Anemia work-up noted Monitor renal parameters Antibiotics Avoid nephrotoxic's Per orders Subjective ROS Limited/Unobtainable: No Constitutional: Reports: malaise, weakness Objective Objective Last 24 Hour Vital Signs Date Time Temp Pulse Resp B/P (MAP) Pulse Ox O2 Delivery O2 Flow Rate FiO2 07/23/19 08:47 67 150/86 07/23/19 08:00 97.3 67 20 150/86 (107) 94 07/23/19 04:00 97.6 19 152/84 (106) 96 07/23/19 00:00 97.2 18 141/91 (108) 70 07/22/19 21:07 67 150/86 07/22/19 21:00 Room Air 07/22/19 20:00 97.3 67 20 150/86 (107) 94 07/22/19 16:00 97.2 72 20 144/78 (100) 96 07/22/19 13:37 146/79 07/22/19 12:00 97.9 74 19 146/79 (101) 98 Intake and Output 07/22/19 07/23/19 19:00 07:00 Intake Total 150 ml 1460 ml Output Total 600 ml 600 ml Balance -450 ml 860 ml Free Water 200 ml IV Total 150 ml 900 ml Tube Feeding 360 ml Output Urine Total 600 ml 600 ml # Bowel Movements 1 Laboratory Tests 07/23/19 06:07: White Blood Count 10.4, Red Blood Count 2.76L, Hemoglobin 7.5L, Hematocrit 22.7L , Mean Corpuscular Volume 82, Mean Corpuscular Hemoglobin 27.2, Mean Corpuscular Hemoglobin Concent 33.2, Red Cell Distribution Width 18.0H, Platelet Count 148L, Mean Platelet Volume 8.2, Neutrophils (%) (Auto) , Lymphocytes (%) (Auto) , Monocytes (%) (Auto) , Eosinophils (%) (Auto) , Basophils (%) (Auto) , Differential Total Cells Counted 100, Neutrophils % ( Manual) 63, Lymphocytes % (Manual) 26, Monocytes % (Manual) 6, Eosinophils % ( Manual) 5H, Basophils % (Manual) 0, Band Neutrophils 0, Platelet Estimate DecreasedL, Platelet Morphology Normal, Hypochromasia 3+, Prothrombin Time 10.6 , Prothromb Time International Ratio 1.0, Sodium Level 144, Potassium Level 4.2 , Chloride Level 113H, Carbon Dioxide Level 20L, Anion Gap 12, Blood Urea Nitrogen 37H, Creatinine 1.7H, Estimat Glomerular Filtration Rate 49.3, Glucose Level 100, Uric Acid 7.3H, Calcium Level 9.2, Phosphorus Level 3.9, Magnesium Level 1.6L, Total Bilirubin 0.2, Aspartate Amino Transf (AST/SGOT) 27, Alanine Aminotransferase (ALT/SGPT) 12, Alkaline Phosphatase 124H, C-Reactive Protein, Quantitative 9.8H, Pro-B-Type Natriuretic Peptide 5290H, Total Protein 6.4, Albumin 1.2L, Globulin 5.2, Albumin/Globulin Ratio 0.2L Height (Feet): 6 Height (Inches): 0.00 Weight (Pounds): 167 General Appearance: no apparent distress, lethargic Cardiovascular: normal rate Respiratory/Chest: decreased breath sounds Abdomen: distended Extremities: moderate edema - Extremities Objective No change Zander Razo MD Jul 23, 2019 10:35
[2019-07-23] MEDS ORDERED: NS 500ML IVPB ONE (10:42)
[2019-07-23] MEDS ORDERED: cefOXitin 1gm Inj IVP ONE (10:45)
[2019-07-23] MEDS ORDERED: LR 1000ml 1,000 ML IVLG SCH (10:52)
--- NOTE | 2019-07-23 10:55 | Endoscopy Procedure Note ---
Endoscopy Procedure Note General Indication for Procedure: dysphagia Procedures Performed: EGD, PEG Operative Findings/Diagnosis: same Specimen: yes Pt Tolerated Procedure Well: Yes Estimated Blood Loss: none Anesthesia Anesthesiologist: stew Anesthesia: MAC Inserted Devices Implant(s) used?: No GI Core Measures 50 yrs or older w/o bx or poly: Not Applicable 10yrs. F/U recommended: Not Applicable Mansoor Interiano MD Jul 23, 2019 10:55
--- NOTE | 2019-07-23 10:59 | Anethesia Preoperative Eval ---
Anesthesia Pre-op PMH/ROS General Date of Evaluation: Jul 23, 2019 Time of Evaluation: 10:26 Anesthesiologist: Ryder ASA Score: ASA 4 - Emergency Mallampati Score Class I : Soft palate, uvula, fauces, pillars visible Class II: Soft palate, uvula, fauces visible Class III: Soft palate, base of uvula visible Class IV: Only hard plate visible Mallampati Classification: Class II Surgeon: Jaydon Diagnosis: HIV Surgical Procedure: Gastrostomy Tube Placement Anesthesia History: none Family History: no anesthesia problems Allergies: Coded Allergies: No Known Allergies (Unverified , 03/02/19) Medications: see eMAR Patient NPO?: Yes Past Medical History Cardiovascular: Reports: HTN, other - HL Pulmonary: Reports: COPD - Emphysema Gastrointestinal/Genitourinary: Reports: ESRD, other - Pancreatitis, BPH Neurologic/Psychiatric: Reports: other - AMS Hematology/Immune: Reports: anemia, other - HIV/AIDS Anesthesia Pre-op Phys. Exam Physician Exam Last Vital Signs Date Time Temp Pulse Resp B/P (MAP) Pulse Ox O2 Delivery O2 Flow Rate FiO2 07/23/19 09:00 Room Air 07/23/19 08:47 67 150/86 07/23/19 08:00 97.3 20 94 Constitutional: NAD Neurologic: CN 2-12 intact Cardiovascular: RRR Respiratory: CTA Gastrointestinal: S/NT/ND Airway Exam Mallampati Score: Class II MO: limited ROM: limited Teeth: missing Anesthesia Pre-op A/P Labs Hematology Test 07/23/19 06:07 White Blood Count 10.4 K/UL (4.8-10.8) Red Blood Count 2.76 M/UL (4.70-6.10) L Hemoglobin 7.5 G/DL (14.2-18.0) L Hematocrit 22.7 % (42.0-52.0) L Mean Corpuscular Volume 82 FL (80-99) Mean Corpuscular Hemoglobin 27.2 PG (27.0-31.0) Mean Corpuscular Hemoglobin Concent 33.2 G/DL (32.0-36.0) Red Cell Distribution Width 18.0 % (11.6-14.8) H Platelet Count 148 K/UL (150-450) L Mean Platelet Volume 8.2 FL (6.5-10.1) Neutrophils (%) (Auto) % (45.0-75.0) Lymphocytes (%) (Auto) % (20.0-45.0) Monocytes (%) (Auto) % (1.0-10.0) Eosinophils (%) (Auto) % (0.0-3.0) Basophils (%) (Auto) % (0.0-2.0) Differential Total Cells Counted 100 Neutrophils % (Manual) 63 % (45-75) Lymphocytes % (Manual) 26 % (20-45) Monocytes % (Manual) 6 % (1-10) Eosinophils % (Manual) 5 % (0-3) H Basophils % (Manual) 0 % (0-2) Band Neutrophils 0 % (0-8) Platelet Estimate Decreased L Platelet Morphology Normal Hypochromasia 3+ Coagulation Test 07/23/19 06:07 Prothrombin Time 10.6 SEC (9.30-11.50) Prothromb Time International Ratio 1.0 (0.9-1.1) Chemistry Test 07/23/19 06:07 Sodium Level 144 MMOL/L (136-145) Potassium Level 4.2 MMOL/L (3.5-5.1) Chloride Level 113 MMOL/L (98-107) H Carbon Dioxide Level 20 MMOL/L (21-32) L Anion Gap 12 mmol/L (5-15) Blood Urea Nitrogen 37 mg/dL (7-18) H Creatinine 1.7 MG/DL (0.55-1.30) H Estimat Glomerular Filtration Rate 49.3 mL/min (>60) Glucose Level 100 MG/DL (74-106) Uric Acid 7.3 MG/DL (2.6-7.2) H Calcium Level 9.2 MG/DL (8.5-10.1) Phosphorus Level 3.9 MG/DL (2.5-4.9) Magnesium Level 1.6 MG/DL (1.8-2.4) L Total Bilirubin 0.2 MG/DL (0.2-1.0) Aspartate Amino Transf (AST/SGOT) 27 U/L (15-37) Alanine Aminotransferase (ALT/SGPT) 12 U/L (12-78) Alkaline Phosphatase 124 U/L (46-116) H C-Reactive Protein, Quantitative 9.8 mg/dL (0.00-0.90) H Pro-B-Type Natriuretic Peptide 5290 pg/mL (0-125) H Total Protein 6.4 G/DL (6.4-8.2) Albumin 1.2 G/DL (3.4-5.0) L Globulin 5.2 g/dL Albumin/Globulin Ratio 0.2 (1.0-2.7) L Risk Assessment & Plan Assessment: ASA 4E Plan: TIVA Pre-Antibiotics Dru Gram Cefoxitin IV Given Within 1 Hr of Incision: Yes Time Given: 10:36 Sixto Soler MD Jul 23, 2019 10:59
[2019-07-23] MEDS ORDERED: HYDROcodone/Acetamin 7.5/325 tab ORAL PRN (11:00)
[2019-07-23] MEDS ORDERED: Meperidine 25mg/0.5ml Inj (FOR RIGORS ONLY) IV PRN (11:00)
[2019-07-23] MEDS ORDERED: Labetalol 5mg/ml 20ml vial IV PRN (11:00)
[2019-07-23] MEDS ORDERED: Hydromorphone 0.5mg/0.5ml inj IVP PRN (11:00)
[2019-07-23] MEDS ORDERED: HYDROcodone/Acetamin 5/325 tab ORAL PRN (11:00)
[2019-07-23] MEDS ORDERED: Ketorolac 30mg Inj IV PRN ×2 (11:00)
[2019-07-23] MEDS ORDERED: Metoclopramide 10mg/2ml Inj IVP PRN (11:00)
[2019-07-23] MEDS ORDERED: oxyCODONE HCL/Acetaminophen 5/325mg ORAL PRN (11:00)
[2019-07-23] MEDS ORDERED: LORazepam Inj 2mg/ml 1ml IV PRN (11:00)
[2019-07-23] MEDS ORDERED: fentaNYL 100 mcg/2 mL IV PRN (11:00)
[2019-07-23] MEDS ORDERED: Atropine Sulfate 0.4mg/ml inj IVP PRN (11:00)
[2019-07-23] MEDS ORDERED: Midazolam 2mg/2ml Inj IVP PRN (11:00)
[2019-07-23] MEDS ORDERED: DiphenhydrAMINE 50mg/ml Inj IVP PRN (11:00)
--- NOTE | 2019-07-23 11:00 | Immediate Post-Op Evaluation ---
Immediate Post-Op Evalulation Immediate Post-Op Evalulation Procedure: Gastrostomy Tube Placement Date of Evaluation: Jul 23, 2019 Time of Evaluation: 11:27 IV Fluids: 500 NS Blood Products: 0 Estimated Blood Loss: 2 Urinary Output: 0 Blood Pressure Systolic: 113 Blood Pressure Diastolic: 68 Pulse Rate: 60 Respiratory Rate: 16 O2 Sat by Pulse Oximetry: 100 Temperature (Fahrenheit): 97.1 Pain Score (1-10): 2 Nausea: No Vomiting: No Complications 0 Patient Status: awake, reacts, patent, none Hydration Status: adequate Dru Gram Cefoxitin IV Given Within 1 Hr of Incision: Yes Time Given: 10:36 Sixto Soler MD Jul 23, 2019 11:00
--- NOTE | 2019-07-23 11:01 | 48 Hour Post Anesthesia Eval ---
Post Anesthesia Evaluation Procedure: Gastrostomy Tube Placement Date of Evaluation: Jul 23, 2019 Time of Evaluation: 13:46 Blood Pressure Systolic: 124 0: 76 Pulse Rate: 64 Respiratory Rate: 18 Temperature (Fahrenheit): 98 O2 Sat by Pulse Oximetry: 99 Airway: patent Nausea: No Vomiting: No Pain Intensity: 2 Hydration Status: adequate Cardiopulmonary Status: Stable Mental Status/LOC: patient returned to baseline Follow-up Care/Observations: 0 Post-Anesthesia Complications: 0 Follow-up care needed: N/A Sixto Soler MD Jul 23, 2019 11:01
--- NOTE | 2019-07-23 11:29 | Pulmonology Progress Note ---
Assessment/Plan Problems: (1) Sepsis (2) Altered level of consciousness (3) COPD (chronic obstructive pulmonary disease) (4) Pancreatitis (5) Decubitus skin ulcer (6) Hypertension (7) BPH (benign prostatic hyperplasia) (8) HIV disease Assessment/Plan WBC lower today, in normal range h/h stable, OB stool negative X two absolute CD4 count noted mental status improved wound care iv abx adams culture, VRE positive, BC negative f/u amylase lipase has NG tube now pt refusing meds at times dvt prophylaxis. Subjective ROS Limited/Unobtainable: No Constitutional: Reports: no symptoms HEENT: Repors: no symptoms Respiratory: Reports: no symptoms Allergies: Coded Allergies: No Known Allergies (Unverified , 03/02/19) Objective Last 24 Hour Vital Signs Date Time Temp Pulse Resp B/P (MAP) Pulse Ox O2 Delivery O2 Flow Rate FiO2 07/23/19 11:14 64 18 99 07/23/19 09:00 Room Air 07/23/19 08:47 67 150/86 07/23/19 08:00 97.3 67 20 150/86 (107) 94 07/23/19 04:00 97.6 19 152/84 (106) 96 07/23/19 00:00 97.2 18 141/91 (108) 70 07/22/19 21:07 67 150/86 07/22/19 21:00 Room Air 07/22/19 20:00 97.3 67 20 150/86 (107) 94 07/22/19 16:00 97.2 72 20 144/78 (100) 96 07/22/19 13:37 146/79 07/22/19 12:00 97.9 74 19 146/79 (101) 98 Intake and Output 07/22/19 07/23/19 19:00 07:00 Intake Total 150 ml 1460 ml Output Total 600 ml 600 ml Balance -450 ml 860 ml Free Water 200 ml IV Total 150 ml 900 ml Tube Feeding 360 ml Output Urine Total 600 ml 600 ml # Bowel Movements 1 Objective General Appearance: cachectic HEENT: normocephalic Respiratory/Chest: chest wall non-tender, lungs clear Cardiovascular: normal rate, regular rhythm Abdomen: normal bowel sounds, no organomegaly Extremities: no cyanosis Bed bound Laboratory Tests 07/23/19 06:07: White Blood Count 10.4, Red Blood Count 2.76L, Hemoglobin 7.5L, Hematocrit 22.7L , Mean Corpuscular Volume 82, Mean Corpuscular Hemoglobin 27.2, Mean Corpuscular Hemoglobin Concent 33.2, Red Cell Distribution Width 18.0H, Platelet Count 148L, Mean Platelet Volume 8.2, Neutrophils (%) (Auto) , Lymphocytes (%) (Auto) , Monocytes (%) (Auto) , Eosinophils (%) (Auto) , Basophils (%) (Auto) , Differential Total Cells Counted 100, Neutrophils % ( Manual) 63, Lymphocytes % (Manual) 26, Monocytes % (Manual) 6, Eosinophils % ( Manual) 5H, Basophils % (Manual) 0, Band Neutrophils 0, Platelet Estimate DecreasedL, Platelet Morphology Normal, Hypochromasia 3+, Prothrombin Time 10.6 , Prothromb Time International Ratio 1.0, Sodium Level 144, Potassium Level 4.2 , Chloride Level 113H, Carbon Dioxide Level 20L, Anion Gap 12, Blood Urea Nitrogen 37H, Creatinine 1.7H, Estimat Glomerular Filtration Rate 49.3, Glucose Level 100, Uric Acid 7.3H, Calcium Level 9.2, Phosphorus Level 3.9, Magnesium Level 1.6L, Total Bilirubin 0.2, Aspartate Amino Transf (AST/SGOT) 27, Alanine Aminotransferase (ALT/SGPT) 12, Alkaline Phosphatase 124H, C-Reactive Protein, Quantitative 9.8H, Pro-B-Type Natriuretic Peptide 5290H, Total Protein 6.4, Albumin 1.2L, Globulin 5.2, Albumin/Globulin Ratio 0.2L Current Medications Medications (Trade) Dose Ordered Sig/Deborah Route PRN Reason Start Time Stop Time Status Last Admin Dose Admin Acetaminophen (Tylenol) 650 mg Q4H PRN ORAL fever 07/08/19 19:45 08/07/19 19:44 07/22/19 09:48 Acetaminophen/ Hydrocodone Bitart ([place] 5/325) 1 tab Q1H PRN ORAL Mild Pain (Pain Scale 1-3) 07/23/19 11:00 07/23/19 18:00 Acetaminophen/ Hydrocodone Bitart ([place] 7.5/325) 1 tab Q1H PRN ORAL Moderate Pain (Pain Scale 4-6) 07/23/19 11:00 07/23/19 18:00 Al Hydroxide/Mg Hydroxide (Mylanta) 15 ml Q1H PRN ORAL gi upset 07/23/19 11:00 UNV Allopurinol (allopurinoL) 300 mg DAILY ORAL 07/14/19 09:00 08/13/19 08:59 07/23/19 08:47 Atropine Sulfate (Atropine 0.4mg/ ml) 0.5 mg Q5M PRN IVP HR<40 07/23/19 11:00 UNV Carvedilol (Coreg) 12.5 mg EVERY 12 HOURS NG 07/22/19 21:00 08/17/19 10:44 07/23/19 08:47 Chlorhexidine Gluconate (Leslie-Hex 2%) 1 applic DAILY@1999 TOPIC 07/19/19 20:00 10/17/19 19:59 Dextrose (Dextrose 50%) 25 ml Q30M PRN IV Hypoglycemia 07/13/19 14:00 10/11/19 13:59 07/15/19 21:31 Dextrose (Dextrose 50%) 50 ml Q30M PRN IV Hypoglycemia 07/13/19 14:00 10/11/19 13:59 07/14/19 11:33 Diphenhydramine HCl (Benadryl) 25 mg Q15M PRN IVP Itching 07/23/19 11:00 UNV Fentanyl Citrate (Sublimaze 100 mcg/2 mL) 25 mcg Q10M PRN IV Moderate Pain (Pain Scale 4-6) 07/23/19 11:00 07/23/19 18:00 Hydralazine HCl (Apresoline) 5 mg Q30M PRN IV SBP>160 / DBP>90 07/23/19 11:00 UNV Hydralazine HCl (Apresoline) 25 mg Q4HR PRN ORAL BP over 160 systolic 07/09/19 14:45 10/07/19 14:44 07/22/19 09:48 Hydromorphone HCl (Dilaudid) 0.5 mg Q15M PRN IVP Severe Pain (Pain Scale 7-10) 07/23/19 11:00 07/23/19 18:00 Insulin Aspart (NovoLOG) BEFORE MEALS AND HS SUBQ 07/13/19 16:30 10/11/19 16:29 Ketorolac Tromethamine (Toradol 30mg) 15 mg Q1H PRN IV Moderate Breakthru Pain (5-7) 07/23/19 11:00 07/23/19 18:00 Ketorolac Tromethamine (Toradol 30mg) 30 mg Q1H PRN IV Severe Breakthru Pain (>7) 07/23/19 11:00 07/23/19 18:00 Labetalol HCl (Normodyne) 5 mg Q10M PRN IV SBP>160 / DBP>90 07/23/19 11:00 07/24/19 10:59 UNV Lactated Ringer's 1,000 ml @ 10 mls/hr Q24H IVLG 07/23/19 10:52 07/23/19 12:51 UNV Lansoprazole (Prevacid) 30 mg BID NG 07/19/19 18:00 08/18/19 08:59 07/23/19 08:46 Linaclotide (Linzess) 290 mcg BEFORE BREAKFAST ORAL 07/19/19 06:30 10/17/19 06:29 07/23/19 05:51 Lorazepam (Ativan 2mg/ml 1ml) 1 mg Q15M PRN IV For Anxiety 07/23/19 11:00 07/23/19 18:00 Magnesium Sulfate 100 ml @ 100 mls/hr Q1H IVPB 07/23/19 10:00 07/23/19 11:59 Meperidine HCl (Demerol) 25 mg Q5M PRN IV SHIVERING.MAY REPEAT X 1 07/23/19 11:00 UNV Metoclopramide HCl (Reglan) 10 mg Q1H PRN IVP Nausea & Vomiting 07/23/19 11:00 07/23/19 18:00 Midazolam HCl (Versed 2mg/2ml vial) 1 mg Q15M PRN IVP For Anxiety 07/23/19 11:00 07/23/19 18:00 Nitroglycerin (Ntg) 0.4 mg Q5M PRN SL Prn Chest Pain 07/08/19 19:45 08/07/19 19:44 Nitroglycerin (Ntg) 1 patch Q24H TDERMAL 07/10/19 13:00 08/09/19 12:59 07/22/19 13:37 Ondansetron HCl (Zofran) 4 mg Q1H PRN IVP Nausea & Vomiting 07/23/19 11:00 UNV Ondansetron HCl (Zofran) 4 mg Q6H PRN IVP Nausea & Vomiting 07/08/19 19:45 08/07/19 19:44 Oxycodone/ Acetaminophen (Percocet 5-325) 1 tab Q1H PRN ORAL Severe Pain (Pain Scale 7-10) 07/23/19 11:00 07/23/19 18:00 Polyethylene Glycol (Miralax) 17 gm DAILYPRN PRN ORAL Constipation 07/08/19 19:45 08/07/19 19:44 Trimethoprim/ Sulfamethoxazole (Bactrim Single Strength) 1 tab DAILY ORAL 07/13/19 09:00 08/18/19 23:59 07/23/19 08:47 Rico Chavarria MD Jul 23, 2019 11:29
--- NOTE | 2019-07-23 13:14 | Procedure Note ---
DATE OF PROCEDURE: 07/23/2019 SURGEON: Mansoor Interiano M.D. CHIEF COMPLAINT: Dysphagia, failure to thrive. REASON FOR PROCEDURE: The procedure, risks, benefits, and possible consequences, including hemorrhage, aspiration, perforation and infection, and alternative treatments, were explained to the patient/legal guardian by Dr. Mansoor Interiano and the patient/legal guardian understood and accepted these risks. DESCRIPTION OF PROCEDURE: After informed consent was obtained and the patient was adequately sedated, Olympus upper endoscope was advanced from the mouth into the second portion of the duodenum and retroflexion was performed in the stomach. The patient had evidence of diffuse gastritis. Then, under endoscopic guidance under sterile condition, a 20-Citizen Of [place] pull type of G-tube was successfully placed in the epigastric area. The distance from the tip of the tube to skin was about 2.5 cm in size. The patient tolerated the procedure very well without any complications. SUMMARY OF FINDINGS: 1. Gastritis. 2. Status post successful PEG placement. RECOMMENDATIONS: 1. Abdominal binder. 2. Elevate the head of bed at all times. 3. G-tube flush. 4. G-tube care. 5. Start tube feeding later today. I want to thank, Dr. Chavarria, for this kind referral. Mansoor Interiano M.D. DR: IFRAH JOB#: [id number] CC: Rico Chavarria M.D.; Fax#: [phone]
[2019-07-23] MEDS: Nitroglycerin Patch 0.4mg TDERMAL SCH (13:25)
--- NOTE | 2019-07-23 16:34 | Infectious Diseases Prog Note ---
Assessment/Plan Assessment/Plan 63yo man admitted with abdominal pain and diarrhea. Afebrile Leukocytosis ( Ch, doubt ID related ) ; fluctuating, Sp ? ALOC, improving probable UTI 07/14 UA positive, UCx: Ilda albicans Hx of Diarrhea/colitis- 07/17 CT Abd: Anasarca, with severe edema of the subcutaneous fat, abdominal retroperitoneal fat. There is also trace intraperitoneal fluid and bilateral pleural effusions. No definite acute abdominal process otherwise. No evidence of bowel obstruction. Evidence of rectal fecal incontinence. Nasogastric tube in good position. Retained urine within the bladder lumen, despite the presence of a Macario catheter. Mild bladder wall thickening. Indicate cystitis. Bilateral pleural effusions, as mentioned earlier. Resultant compressive atelectatic changes at both lung bases. Evidence of bullous COPD. Hazy parenchymal opacity may be related to COPD, but could also indicate mild pulmonary edema given other findings of anasarca Severe bilateral hip degenerative changes, also previously demonstrated. 03/02 CT: Suspected colitis with the thickening of the wall the colon. Correlate clinically. Thickening of the wall the urinary bladder. Correlate for cystitis. C diff negative x2 stool cx negative stool o/p x1 negative -Negative: E. histolytica ab, Echinococcus ab pt has refused colonoscopy in the past HIV Screen positive- new diagnosis in February 2019 HIV-1 Abt positive. 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 03/04/19 CD4 180 (7.2%) 06/2009 CD4 143 RPR negative no evid of biliary - US : Mild intrahepatic biliary ductal dilatation. MRI of brain ( could not be done ) COPD. Hypertension. BPH. History of cocaine abuse in the past. Bedbound. PLAN: pt is refusing meds from time time making HIV Rx difficult on Bactrim SS for PCP PPx 07/20 SP diflucan #3 07/17 SP Ceftriaxone #3 07/12 SP IV Vanco and Cefepime # 4/5 monitor CBC, temp pt must follow up with PMD/HIV specialist once discharged HIV Genotype exchange inna JUNIOR RN Subjective Allergies: Coded Allergies: No Known Allergies (Unverified , 03/02/19) Subjective Afebrile. RA. SP PEG awake Objective Vital Signs Last 24 Hour Vital Signs Date Time Temp Pulse Resp B/P (MAP) Pulse Ox O2 Delivery O2 Flow Rate FiO2 07/23/19 13:25 104/53 07/23/19 12:00 96.8 58 19 104/53 (70) 92 07/23/19 11:45 97.0 60 18 112/70 96 Room Air 07/23/19 11:40 60 18 113/66 96 Room Air 07/23/19 11:35 60 18 107/60 96 Room Air 07/23/19 11:25 61 18 106/61 100 Simple Mask 2 07/23/19 11:20 60 18 109/68 100 Simple Mask 6 07/23/19 11:15 97.1 60 18 116/60 100 Simple Mask 6 07/23/19 11:14 64 18 99 07/23/19 09:00 Room Air 07/23/19 08:47 67 150/86 07/23/19 08:00 97.3 67 20 150/86 (107) 94 07/23/19 04:00 97.6 19 152/84 (106) 96 07/23/19 00:00 97.2 18 141/91 (108) 70 07/22/19 21:07 67 150/86 07/22/19 21:00 Room Air 07/22/19 20:00 97.3 67 20 150/86 (107) 94 Height (Feet): 6 Height (Inches): 0.00 Weight (Pounds): 167 Objective Gen: NAD. HEENT: NGT CV: RRR Resp: coarse. regular. equal chest rise Abd: soft. MSK: edematous. Neuro: opens eyes to voice. Laboratory Tests Test 07/23/19 06:07 White Blood Count 10.4 K/UL (4.8-10.8) Red Blood Count 2.76 M/UL (4.70-6.10) L Hemoglobin 7.5 G/DL (14.2-18.0) L Hematocrit 22.7 % (42.0-52.0) L Mean Corpuscular Volume 82 FL (80-99) Mean Corpuscular Hemoglobin 27.2 PG (27.0-31.0) Mean Corpuscular Hemoglobin Concent 33.2 G/DL (32.0-36.0) Red Cell Distribution Width 18.0 % (11.6-14.8) H Platelet Count 148 K/UL (150-450) L Mean Platelet Volume 8.2 FL (6.5-10.1) Neutrophils (%) (Auto) % (45.0-75.0) Lymphocytes (%) (Auto) % (20.0-45.0) Monocytes (%) (Auto) % (1.0-10.0) Eosinophils (%) (Auto) % (0.0-3.0) Basophils (%) (Auto) % (0.0-2.0) Differential Total Cells Counted 100 Neutrophils % (Manual) 63 % (45-75) Lymphocytes % (Manual) 26 % (20-45) Monocytes % (Manual) 6 % (1-10) Eosinophils % (Manual) 5 % (0-3) H Basophils % (Manual) 0 % (0-2) Band Neutrophils 0 % (0-8) Platelet Estimate Decreased L Platelet Morphology Normal Hypochromasia 3+ Prothrombin Time 10.6 SEC (9.30-11.50) Prothromb Time International Ratio 1.0 (0.9-1.1) Sodium Level 144 MMOL/L (136-145) Potassium Level 4.2 MMOL/L (3.5-5.1) Chloride Level 113 MMOL/L (98-107) H Carbon Dioxide Level 20 MMOL/L (21-32) L Anion Gap 12 mmol/L (5-15) Blood Urea Nitrogen 37 mg/dL (7-18) H Creatinine 1.7 MG/DL (0.55-1.30) H Estimat Glomerular Filtration Rate 49.3 mL/min (>60) Glucose Level 100 MG/DL (74-106) Uric Acid 7.3 MG/DL (2.6-7.2) H Calcium Level 9.2 MG/DL (8.5-10.1) Phosphorus Level 3.9 MG/DL (2.5-4.9) Magnesium Level 1.6 MG/DL (1.8-2.4) L Total Bilirubin 0.2 MG/DL (0.2-1.0) Aspartate Amino Transf (AST/SGOT) 27 U/L (15-37) Alanine Aminotransferase (ALT/SGPT) 12 U/L (12-78) Alkaline Phosphatase 124 U/L (46-116) H C-Reactive Protein, Quantitative 9.8 mg/dL (0.00-0.90) H Pro-B-Type Natriuretic Peptide 5290 pg/mL (0-125) H Total Protein 6.4 G/DL (6.4-8.2) Albumin 1.2 G/DL (3.4-5.0) L Globulin 5.2 g/dL Albumin/Globulin Ratio 0.2 (1.0-2.7) L Current Medications Medications (Trade) Dose Ordered Sig/Deborah Route PRN Reason Start Time Stop Time Status Last Admin Dose Admin Acetaminophen (Tylenol) 650 mg Q4H PRN ORAL fever 07/08/19 19:45 08/07/19 19:44 07/22/19 09:48 Acetaminophen/ Hydrocodone Bitart ([place] 5/325) 1 tab Q1H PRN ORAL Mild Pain (Pain Scale 1-3) 07/23/19 11:00 07/23/19 18:00 Acetaminophen/ Hydrocodone Bitart ([place] 7.5/325) 1 tab Q1H PRN ORAL Moderate Pain (Pain Scale 4-6) 07/23/19 11:00 07/23/19 18:00 Al Hydroxide/Mg Hydroxide (Mylanta) 15 ml Q1H PRN ORAL gi upset 07/23/19 11:00 07/23/19 18:00 Allopurinol (allopurinoL) 300 mg DAILY ORAL 07/14/19 09:00 08/13/19 08:59 07/23/19 08:47 Atropine Sulfate (Atropine 0.4mg/ ml) 0.5 mg Q5M PRN IVP HR<40 07/23/19 11:00 07/23/19 18:00 Carvedilol (Coreg) 12.5 mg EVERY 12 HOURS NG 07/22/19 21:00 08/17/19 10:44 07/23/19 08:47 Chlorhexidine Gluconate (Leslie-Hex 2%) 1 applic DAILY@1999 TOPIC 07/19/19 20:00 10/17/19 19:59 Dextrose (Dextrose 50%) 25 ml Q30M PRN IV Hypoglycemia 07/13/19 14:00 10/11/19 13:59 07/15/19 21:31 Dextrose (Dextrose 50%) 50 ml Q30M PRN IV Hypoglycemia 07/13/19 14:00 10/11/19 13:59 07/14/19 11:33 Diphenhydramine HCl (Benadryl) 25 mg Q15M PRN IVP Itching 07/23/19 11:00 07/23/19 18:00 Fentanyl Citrate (Sublimaze 100 mcg/2 mL) 25 mcg Q10M PRN IV Moderate Pain (Pain Scale 4-6) 07/23/19 11:00 07/23/19 18:00 Hydralazine HCl (Apresoline) 5 mg Q30M PRN IV SBP>160 / DBP>90 07/23/19 11:00 07/23/19 18:00 Hydralazine HCl (Apresoline) 25 mg Q4HR PRN ORAL BP over 160 systolic 07/09/19 14:45 10/07/19 14:44 07/22/19 09:48 Hydromorphone HCl (Dilaudid) 0.5 mg Q15M PRN IVP Severe Pain (Pain Scale 7-10) 07/23/19 11:00 07/23/19 18:00 Insulin Aspart (NovoLOG) BEFORE MEALS AND HS SUBQ 07/13/19 16:30 10/11/19 16:29 Ketorolac Tromethamine (Toradol 30mg) 15 mg Q1H PRN IV Moderate Breakthru Pain (5-7) 07/23/19 11:00 07/23/19 18:00 Ketorolac Tromethamine (Toradol 30mg) 30 mg Q1H PRN IV Severe Breakthru Pain (>7) 07/23/19 11:00 07/23/19 18:00 Labetalol HCl (Normodyne) 5 mg Q10M PRN IV SBP>160 / DBP>90 07/23/19 11:00 07/23/19 18:00 Lactated Ringer's 1,000 ml @ 10 mls/hr Q24H IVLG 07/23/19 10:52 07/23/19 18:00 07/23/19 13:20 Lansoprazole (Prevacid) 30 mg BID NG 07/19/19 18:00 08/18/19 08:59 07/23/19 08:46 Linaclotide (Linzess) 290 mcg BEFORE BREAKFAST ORAL 07/19/19 06:30 10/17/19 06:29 07/23/19 05:51 Lorazepam (Ativan 2mg/ml 1ml) 1 mg Q15M PRN IV For Anxiety 07/23/19 11:00 07/23/19 18:00 Meperidine HCl (Demerol) 25 mg Q5M PRN IV SHIVERING.MAY REPEAT X 1 07/23/19 11:00 07/23/19 18:00 Metoclopramide HCl (Reglan) 10 mg Q1H PRN IVP Nausea & Vomiting 07/23/19 11:00 07/23/19 18:00 Midazolam HCl (Versed 2mg/2ml vial) 1 mg Q15M PRN IVP For Anxiety 07/23/19 11:00 07/23/19 18:00 Nitroglycerin (Ntg) 0.4 mg Q5M PRN SL Prn Chest Pain 07/08/19 19:45 08/07/19 19:44 Nitroglycerin (Ntg) 1 patch Q24H TDERMAL 07/10/19 13:00 08/09/19 12:59 07/23/19 13:25 Ondansetron HCl (Zofran) 4 mg Q1H PRN IVP Nausea & Vomiting 07/23/19 11:00 07/23/19 18:00 Ondansetron HCl (Zofran) 4 mg Q6H PRN IVP Nausea & Vomiting 07/08/19 19:45 08/07/19 19:44 Oxycodone/ Acetaminophen (Percocet 5-325) 1 tab Q1H PRN ORAL Severe Pain (Pain Scale 7-10) 07/23/19 11:00 07/23/19 18:00 Polyethylene Glycol (Miralax) 17 gm DAILYPRN PRN ORAL Constipation 07/08/19 19:45 08/07/19 19:44 Trimethoprim/ Sulfamethoxazole (Bactrim Single Strength) 1 tab DAILY ORAL 07/13/19 09:00 08/18/19 23:59 07/23/19 08:47 Olegario Carroll MD Jul 23, 2019 16:34
[2019-07-23] MEDS: Dyna-Hex 2% Top Sol 2oz TOPIC SCH (20:00)
[2019-07-24] VITALS: BP 111/57
[2019-07-24 04:00] VITALS: BP 96/53
[2019-07-24] MEDS: NovoLOG Insulin Flexpen SUBQ SCH ×4 (06:30→20:47)
[2019-07-24 08:00] VITALS: BP 93/51
[2019-07-24] MEDS: Carvedilol 12.5mg tab NG SCH ×2 (09:00→21:14)
[2019-07-24] MEDS: Bactrim SS Tab ORAL SCH (09:14)
--- NOTE | 2019-07-24 09:55 | General Progress Note ---
Assessment/Plan Assessment/Plan: 1. History of HIV. 2.thrombocytopenia 3. Anemia. 4. Sepsis. 5. UTIs with MRSA. 6. Hypertension. 7. COPD. 8. BPH. 9. Sacral decubital ulcerations, stage III. 10. Malnutrition. 11. pancreatitis 12. Dilated IHD CT of abd and pelvic>>>reviewed repeat labs in am improving WBC abx per ID s/p GT placement yesterday tolerating GTF GT care off heparin given thrombocytopenia Subjective ROS Limited/Unobtainable: No Allergies: Coded Allergies: No Known Allergies (Unverified , 03/02/19) Subjective confused pulled NGT now replaced Objective Last 24 Hour Vital Signs Date Time Temp Pulse Resp B/P (MAP) Pulse Ox O2 Delivery O2 Flow Rate FiO2 07/24/19 08:00 97.5 77 18 93/51 (65) 95 07/24/19 04:00 96.4 69 20 96/53 (67) 95 07/24/19 00:00 94.6 60 21 111/57 (75) 96 07/23/19 21:16 66 123/61 07/23/19 21:00 Room Air 07/23/19 20:12 22 07/23/19 20:00 98.2 70 121/75 (90) 96 07/23/19 16:00 97.9 61 20 108/55 (72) 96 07/23/19 13:25 104/53 07/23/19 12:00 96.8 58 19 104/53 (70) 92 07/23/19 11:45 97.0 60 18 112/70 96 Room Air 07/23/19 11:40 60 18 113/66 96 Room Air 07/23/19 11:35 60 18 107/60 96 Room Air 07/23/19 11:25 61 18 106/61 100 Simple Mask 2 07/23/19 11:20 60 18 109/68 100 Simple Mask 6 07/23/19 11:15 97.1 60 18 116/60 100 Simple Mask 6 07/23/19 11:14 64 18 99 Intake and Output 07/23/19 07/24/19 19:00 07:00 Intake Total 1330 ml 1415 ml Output Total 1400 ml Balance 1330 ml 15 ml Intake Oral 75 ml Free Water 100 ml 300 ml IV Total 1200 ml 500 ml Tube Feeding 30 ml 540 ml Output Urine Total 1400 ml # Voids 6 # Bowel Movements 5 Height (Feet): 6 Height (Inches): 0.00 Weight (Pounds): 167 General Appearance: lethargic EENT: normal ENT inspection Neck: supple Cardiovascular: normal rate Respiratory/Chest: decreased breath sounds Abdomen: normal bowel sounds, non tender, soft Extremities: non-tender Mansoor Interiano MD Jul 24, 2019 09:55
[2019-07-24 12:00] VITALS: BP 98/56
--- NOTE | 2019-07-24 12:52 | Nephrology Progress Note ---
Assessment/Plan Problem List: (1) Pancreatitis (2) Hypothermia (3) Hypertension (4) COPD (chronic obstructive pulmonary disease) (5) BPH (benign prostatic hyperplasia) (6) HIV disease (7) Anemia (8) Hypoalbuminemia Assessment Acute renal failure, partly dehydration Anemia Hypoalbuminemia High lipase level of 1999, Pancreatitis UTI Hypothermia Toxic metabolic encephalopathy Sepsis Decubitus skin ulcer Hypothyroid Plan GT tube July 22 check labs tomorrow Last serum creatinine 1.7 Will discontinue Bicitra 1 L D5W for hypernatremia Trial of albumin and Lasix as needed Patient has Macario catheter so will discontinue Flomax Suggested blood transfusion for low hemoglobin as needed Add Coreg increase the dose accordingly as needed Remains full code Today's labs were reviewed Previously ; patient refusing most of his oral medications, however now has NG tube Will attempt to discontinue what can be changing to intravenous from p.o. and or NG tube route magnesium sulfate and potassium as needed 24-hour urine measurement for total protein results noted unremarkable Add allopurinol 2D echocardiogram results suggestive of ejection fraction of 50% Kidney ultrasound unremarkable Urine studies Anemia work-up noted Monitor renal parameters Antibiotics Avoid nephrotoxic's Per orders Subjective ROS Limited/Unobtainable: No Constitutional: Reports: malaise, weakness Objective Objective Last 24 Hour Vital Signs Date Time Temp Pulse Resp B/P (MAP) Pulse Ox O2 Delivery O2 Flow Rate FiO2 07/24/19 12:00 97.6 78 19 98/56 (70) 96 07/24/19 09:00 Room Air 07/24/19 08:00 97.5 77 18 93/51 (65) 95 07/24/19 04:00 96.4 69 20 96/53 (67) 95 07/24/19 00:00 94.6 60 21 111/57 (75) 96 07/23/19 21:16 66 123/61 07/23/19 21:00 Room Air 07/23/19 20:12 22 07/23/19 20:00 98.2 70 121/75 (90) 96 07/23/19 16:00 97.9 61 20 108/55 (72) 96 07/23/19 13:25 104/53 Intake and Output 07/23/19 07/24/19 19:00 07:00 Intake Total 1330 ml 1415 ml Output Total 1400 ml Balance 1330 ml 15 ml Intake Oral 75 ml Free Water 100 ml 300 ml IV Total 1200 ml 500 ml Tube Feeding 30 ml 540 ml Output Urine Total 1400 ml # Voids 6 # Bowel Movements 5 No lab draw today Height (Feet): 6 Height (Inches): 0.00 Weight (Pounds): 167 General Appearance: no apparent distress, lethargic EENT: other - NGT is out Cardiovascular: normal rate Respiratory/Chest: decreased breath sounds Abdomen: distended, other - Has GT tube Extremities: other - Edematous extremities Objective No change Zander Razo MD Jul 24, 2019 12:52
[2019-07-24] MEDS: Nitroglycerin Patch 0.4mg TDERMAL SCH (13:16)
--- NOTE | 2019-07-24 13:58 | Pulmonology Progress Note ---
Assessment/Plan Problems: (1) Sepsis Assessment & Plan: improved, (2) Altered level of consciousness (3) COPD (chronic obstructive pulmonary disease) (4) Pancreatitis (5) Decubitus skin ulcer (6) Hypertension (7) BPH (benign prostatic hyperplasia) (8) HIV disease Assessment/Plan WBC lower today, in normal range h/h stable, OB stool negative X two absolute CD4 count noted mental status improved wound care iv abx adams culture, VRE positive, BC negative f/u amylase lipase s/p PEG placement dvt prophylaxis. Subjective ROS Limited/Unobtainable: Yes Allergies: Coded Allergies: No Known Allergies (Unverified , 03/02/19) Objective Last 24 Hour Vital Signs Date Time Temp Pulse Resp B/P (MAP) Pulse Ox O2 Delivery O2 Flow Rate FiO2 07/24/19 13:16 98/56 07/24/19 12:00 97.6 78 19 98/56 (70) 96 07/24/19 09:00 Room Air 07/24/19 08:00 97.5 77 18 93/51 (65) 95 07/24/19 04:00 96.4 69 20 96/53 (67) 95 07/24/19 00:00 94.6 60 21 111/57 (75) 96 07/23/19 21:16 66 123/61 07/23/19 21:00 Room Air 07/23/19 20:12 22 07/23/19 20:00 98.2 70 121/75 (90) 96 07/23/19 16:00 97.9 61 20 108/55 (72) 96 Intake and Output 07/23/19 07/24/19 19:00 07:00 Intake Total 1330 ml 1415 ml Output Total 1400 ml Balance 1330 ml 15 ml Intake Oral 75 ml Free Water 100 ml 300 ml IV Total 1200 ml 500 ml Tube Feeding 30 ml 540 ml Output Urine Total 1400 ml # Voids 6 # Bowel Movements 5 Objective General Appearance: cachectic HEENT: normocephalic Respiratory/Chest: chest wall non-tender, lungs clear Cardiovascular: normal rate, regular rhythm Abdomen: normal bowel sounds, no organomegaly Extremities: no cyanosis Bed bound Current Medications Medications (Trade) Dose Ordered Sig/Deborah Route PRN Reason Start Time Stop Time Status Last Admin Dose Admin Acetaminophen (Tylenol) 650 mg Q4H PRN ORAL fever 07/08/19 19:45 4/21/20 19:44 07/22/19 09:48 Allopurinol (allopurinoL) 300 mg DAILY ORAL 07/14/19 09:00 08/13/19 08:59 07/24/19 09:14 Carvedilol (Coreg) 12.5 mg EVERY 12 HOURS NG 07/22/19 21:00 08/17/19 10:44 07/23/19 21:16 Chlorhexidine Gluconate (Leslie-Hex 2%) 1 applic DAILY@2000 TOPIC 07/19/19 20:00 10/17/19 19:59 Dextrose (Dextrose 50%) 25 ml Q30M PRN IV Hypoglycemia 07/13/19 14:00 10/11/19 13:59 07/15/19 21:31 Dextrose (Dextrose 50%) 50 ml Q30M PRN IV Hypoglycemia 07/13/19 14:00 10/11/19 13:59 07/14/19 11:33 Hydralazine HCl (Apresoline) 25 mg Q4HR PRN ORAL BP over 160 systolic 07/09/19 14:45 10/07/19 14:44 07/22/19 09:48 Insulin Aspart (NovoLOG) BEFORE MEALS AND HS SUBQ 07/13/19 16:30 10/11/19 16:29 Lansoprazole (Prevacid) 30 mg BID NG 07/19/19 18:00 08/18/19 08:59 07/24/19 09:14 Linaclotide (Linzess) 290 mcg BEFORE BREAKFAST ORAL 07/19/19 06:30 10/17/19 06:29 07/24/19 06:54 Nitroglycerin (Ntg) 0.4 mg Q5M PRN SL Prn Chest Pain 07/08/19 19:45 08/07/19 19:44 Nitroglycerin (Ntg) 1 patch Q24H TDERMAL 07/10/19 13:00 08/09/19 12:59 07/24/19 13:16 Ondansetron HCl (Zofran) 4 mg Q6H PRN IVP Nausea & Vomiting 07/08/19 19:45 08/07/19 19:44 Polyethylene Glycol (Miralax) 17 gm DAILYPRN PRN ORAL Constipation 07/08/19 19:45 08/07/19 19:44 Trimethoprim/ Sulfamethoxazole (Bactrim Single Strength) 1 tab DAILY ORAL 07/13/19 09:00 08/18/19 23:59 07/24/19 09:14 Rico Chavarria MD Jul 24, 2019 13:58
[2019-07-24 16:00] VITALS: BP 95/49
[2019-07-24 17:51] LABS: AMYLASE 184 U/L (25-115)
[2019-07-24 20:00] VITALS: BP 152/77
[2019-07-24] MEDS: Dyna-Hex 2% Top Sol 2oz TOPIC SCH (20:00)
--- NOTE | 2019-07-24 21:31 | Infectious Diseases Prog Note ---
Assessment/Plan Assessment/Plan 63yo man admitted with abdominal pain and diarrhea. Afebrile Leukocytosis ( Ch, doubt ID related ) ; fluctuating, Sp ? ALOC, improving probable UTI 07/14 UA positive, UCx: Ilda albicans Hx of Diarrhea/colitis- 07/17 CT Abd: Anasarca, with severe edema of the subcutaneous fat, abdominal retroperitoneal fat. There is also trace intraperitoneal fluid and bilateral pleural effusions. No definite acute abdominal process otherwise. No evidence of bowel obstruction. Evidence of rectal fecal incontinence. Nasogastric tube in good position. Retained urine within the bladder lumen, despite the presence of a Macario catheter. Mild bladder wall thickening. Indicate cystitis. Bilateral pleural effusions, as mentioned earlier. Resultant compressive atelectatic changes at both lung bases. Evidence of bullous COPD. Hazy parenchymal opacity may be related to COPD, but could also indicate mild pulmonary edema given other findings of anasarca Severe bilateral hip degenerative changes, also previously demonstrated. 03/02 CT: Suspected colitis with the thickening of the wall the colon. Correlate clinically. Thickening of the wall the urinary bladder. Correlate for cystitis. C diff negative x2 stool cx negative stool o/p x1 negative -Negative: E. histolytica ab, Echinococcus ab pt has refused colonoscopy in the past HIV Screen positive- new diagnosis in February 2019 HIV-1 Abt positive. 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 03/04/19 CD4 180 (7.2%) 06/2009 CD4 143 RPR negative no evid of biliary - US : Mild intrahepatic biliary ductal dilatation. MRI of brain ( could not be done ) COPD. Hypertension. BPH. History of cocaine abuse in the past. Bedbound. PLAN: pt is refusing meds from time to time making HIV Rx difficult on Bactrim SS for PCP PPx 07/20 SP diflucan #3 07/17 SP Ceftriaxone #3 07/12 SP IV Vanco and Cefepime # 4/5 monitor CBC, temp pt must follow up with PMD/HIV specialist once discharged HIV Genotype SANDI RN Subjective Allergies: Coded Allergies: No Known Allergies (Unverified , 03/02/19) Subjective Afebrile. awake but confused Objective Vital Signs Last 24 Hour Vital Signs Date Time Temp Pulse Resp B/P (MAP) Pulse Ox O2 Delivery O2 Flow Rate FiO2 07/24/19 21:14 89 152/77 07/24/19 20:00 99.0 89 20 152/77 (102) 93 07/24/19 16:00 97.4 85 20 95/49 (64) 97 07/24/19 13:16 98/56 07/24/19 12:00 97.6 78 19 98/56 (70) 96 07/24/19 09:00 Room Air 07/24/19 08:00 97.5 77 18 93/51 (65) 95 07/24/19 04:00 96.4 69 20 96/53 (67) 95 07/24/19 00:00 94.6 60 21 111/57 (75) 96 Height (Feet): 6 Height (Inches): 0.00 Weight (Pounds): 167 Objective Gen: NAD. CV: RRR Resp: coarse. regular. equal chest rise Abd: soft. MSK: anasarca Neuro: opens eyes to voice. Laboratory Tests Test 07/24/19 16:40 Amylase Level 184 U/L (25-115) H Lipase 1420 U/L (73-393) H Current Medications Medications (Trade) Dose Ordered Sig/Deborah Route PRN Reason Start Time Stop Time Status Last Admin Dose Admin Acetaminophen (Tylenol) 650 mg Q4H PRN ORAL fever 07/08/19 19:45 08/07/19 19:44 07/22/19 09:48 Allopurinol (allopurinoL) 300 mg DAILY ORAL 07/14/19 09:00 08/13/19 08:59 07/24/19 09:14 Carvedilol (Coreg) 12.5 mg EVERY 12 HOURS NG 07/22/19 21:00 08/17/19 10:44 07/24/19 21:14 Chlorhexidine Gluconate (Leslie-Hex 2%) 1 applic DAILY@2000 TOPIC 07/19/19 20:00 10/17/19 19:59 Dextrose (Dextrose 50%) 25 ml Q30M PRN IV Hypoglycemia 07/13/19 14:00 10/11/19 13:59 07/15/19 21:31 Dextrose (Dextrose 50%) 50 ml Q30M PRN IV Hypoglycemia 07/13/19 14:00 10/11/19 13:59 07/14/19 11:33 Hydralazine HCl (Apresoline) 25 mg Q4HR PRN ORAL BP over 160 systolic 07/09/19 14:45 10/07/19 14:44 07/22/19 09:48 Insulin Aspart (NovoLOG) BEFORE MEALS AND HS SUBQ 07/13/19 16:30 10/11/19 16:29 Lansoprazole (Prevacid) 30 mg BID NG 07/19/19 18:00 08/18/19 08:59 07/24/19 17:36 Linaclotide (Linzess) 290 mcg BEFORE BREAKFAST ORAL 07/19/19 06:30 10/17/19 06:29 07/24/19 06:54 Nitroglycerin (Ntg) 0.4 mg Q5M PRN SL Prn Chest Pain 07/08/19 19:45 08/07/19 19:44 Nitroglycerin (Ntg) 1 patch Q24H TDERMAL 07/10/19 13:00 08/09/19 12:59 07/24/19 13:16 Ondansetron HCl (Zofran) 4 mg Q6H PRN IVP Nausea & Vomiting 07/08/19 19:45 08/07/19 19:44 Polyethylene Glycol (Miralax) 17 gm DAILYPRN PRN ORAL Constipation 07/08/19 19:45 08/07/19 19:44 Trimethoprim/ Sulfamethoxazole (Bactrim Single Strength) 1 tab DAILY ORAL 07/13/19 09:00 08/18/19 23:59 07/24/19 09:14 Olegario Carroll MD Jul 24, 2019 21:31
[2019-07-25] VITALS: BP 147/77
[2019-07-25 04:00] VITALS: BP 132/68
[2019-07-25] MEDS: NovoLOG Insulin Flexpen SUBQ SCH ×4 (05:39→20:56)
[2019-07-25 08:00] VITALS: BP 138/66
--- NOTE | 2019-07-25 08:28 | Infectious Diseases Prog Note ---
Assessment/Plan Assessment/Plan 63yo man admitted with abdominal pain and diarrhea. Afebrile Leukocytosis ( Ch, doubt ID related ) ; fluctuating, Sp ? ALOC, improving probable UTI 07/14 UA positive, UCx: Ilda albicans Hx of Diarrhea/colitis- 07/17 CT Abd: Anasarca, with severe edema of the subcutaneous fat, abdominal retroperitoneal fat. There is also trace intraperitoneal fluid and bilateral pleural effusions. No definite acute abdominal process otherwise. No evidence of bowel obstruction. Evidence of rectal fecal incontinence. Nasogastric tube in good position. Retained urine within the bladder lumen, despite the presence of a Macario catheter. Mild bladder wall thickening. Indicate cystitis. Bilateral pleural effusions, as mentioned earlier. Resultant compressive atelectatic changes at both lung bases. Evidence of bullous COPD. Hazy parenchymal opacity may be related to COPD, but could also indicate mild pulmonary edema given other findings of anasarca Severe bilateral hip degenerative changes, also previously demonstrated. 03/02 CT: Suspected colitis with the thickening of the wall the colon. Correlate clinically. Thickening of the wall the urinary bladder. Correlate for cystitis. C diff negative x2 stool cx negative stool o/p x1 negative -Negative: E. histolytica ab, Echinococcus ab pt has refused colonoscopy in the past HIV Screen positive- new diagnosis in February 2019 HIV-1 Abt positive. 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 03/04/19 CD4 180 (7.2%) 06/2009 CD4 143 RPR negative no evid of biliary - US : Mild intrahepatic biliary ductal dilatation. MRI of brain ( could not be done ) COPD. Hypertension. BPH. History of cocaine abuse in the past. Bedbound. PLAN: on Bactrim SS for PCP PPx 07/20 SP diflucan #3 07/17 SP Ceftriaxone #3 07/12 SP IV Vanco and Cefepime # / monitor CBC, temp once DCed back to SNF, pt should f/u HIV specialist and start ART, renally adjusted through G tube. Rx options for ART at [facility] [place] limited. HIV Genotype: P as of 07/24 SANDI RN Subjective Allergies: Coded Allergies: No Known Allergies (Unverified , 03/02/19) Subjective Afebrile. on RA. lethargic opens eyes to voice Objective Vital Signs Last 24 Hour Vital Signs Date Time Temp Pulse Resp B/P (MAP) Pulse Ox O2 Delivery O2 Flow Rate FiO2 07/25/19 04:00 99.5 86 22 132/68 (89) 97 07/25/19 00:00 100.0 87 19 147/77 (100) 97 07/24/19 21:14 89 152/77 07/24/19 21:00 Room Air 07/24/19 20:00 99.0 89 20 152/77 (102) 93 07/24/19 16:00 97.4 85 20 95/49 (64) 97 07/24/19 13:16 98/56 07/24/19 12:00 97.6 78 19 98/56 (70) 96 07/24/19 09:00 Room Air Height (Feet): 6 Height (Inches): 0.00 Weight (Pounds): 165 Objective Gen: NAD. CV: RRR Resp: coarse. regular. equal chest rise Abd: soft. MSK: anasarca Neuro: opens eyes to voice. Laboratory Tests Test 07/24/19 16:40 07/25/19 08:15 Amylase Level 184 U/L (25-115) H Lipase 1420 U/L (73-393) H White Blood Count Pending Red Blood Count Pending Hemoglobin Pending Hematocrit Pending Mean Corpuscular Volume Pending Mean Corpuscular Hemoglobin Pending Mean Corpuscular Hemoglobin Concent Pending Red Cell Distribution Width Pending Platelet Count Pending Mean Platelet Volume Pending Neutrophils (%) (Auto) Pending Lymphocytes (%) (Auto) Pending Monocytes (%) (Auto) Pending Eosinophils (%) (Auto) Pending Basophils (%) (Auto) Pending Sodium Level Pending Potassium Level Pending Chloride Level Pending Carbon Dioxide Level Pending Blood Urea Nitrogen Pending Creatinine Pending Estimat Glomerular Filtration Rate Pending Glucose Level Pending Calcium Level Pending Phosphorus Level Pending Magnesium Level Pending Total Bilirubin Pending Aspartate Amino Transf (AST/SGOT) Pending Alanine Aminotransferase (ALT/SGPT) Pending Alkaline Phosphatase Pending C-Reactive Protein, Quantitative Pending Pro-B-Type Natriuretic Peptide Pending Total Protein Pending Albumin Pending Globulin Pending Current Medications Medications (Trade) Dose Ordered Sig/Deborah Route PRN Reason Start Time Stop Time Status Last Admin Dose Admin Acetaminophen (Tylenol) 650 mg Q4H PRN ORAL fever 07/08/19 19:45 08/07/19 19:44 07/22/19 09:48 Allopurinol (allopurinoL) 300 mg DAILY ORAL 07/14/19 09:00 08/13/19 08:59 07/24/19 09:14 Carvedilol (Coreg) 12.5 mg EVERY 12 HOURS NG 07/22/19 21:00 08/17/19 10:44 07/24/19 21:14 Chlorhexidine Gluconate (Leslie-Hex 2%) 1 applic DAILY@2000 TOPIC 07/19/19 20:00 10/17/19 19:59 Dextrose (Dextrose 50%) 25 ml Q30M PRN IV Hypoglycemia 07/13/19 14:00 10/11/19 13:59 07/15/19 21:31 Dextrose (Dextrose 50%) 50 ml Q30M PRN IV Hypoglycemia 07/13/19 14:00 10/11/19 13:59 07/14/19 11:33 Hydralazine HCl (Apresoline) 25 mg Q4HR PRN ORAL BP over 160 systolic 07/09/19 14:45 10/07/19 14:44 07/22/19 09:48 Insulin Aspart (NovoLOG) BEFORE MEALS AND HS SUBQ 07/13/19 16:30 10/11/19 16:29 Lansoprazole (Prevacid) 30 mg BID NG 07/19/19 18:00 08/18/19 08:59 07/24/19 17:36 Linaclotide (Linzess) 290 mcg BEFORE BREAKFAST ORAL 07/19/19 06:30 10/17/19 06:29 07/25/19 06:24 Nitroglycerin (Ntg) 0.4 mg Q5M PRN SL Prn Chest Pain 07/08/19 19:45 08/07/19 19:44 Nitroglycerin (Ntg) 1 patch Q24H TDERMAL 07/10/19 13:00 08/09/19 12:59 07/24/19 13:16 Ondansetron HCl (Zofran) 4 mg Q6H PRN IVP Nausea & Vomiting 07/08/19 19:45 08/07/19 19:44 Polyethylene Glycol (Miralax) 17 gm DAILYPRN PRN ORAL Constipation 07/08/19 19:45 08/07/19 19:44 Trimethoprim/ Sulfamethoxazole (Bactrim Single Strength) 1 tab DAILY ORAL 07/13/19 09:00 08/18/19 23:59 07/24/19 09:14 Olegario Carroll MD Jul 25, 2019 08:28
[2019-07-25 08:34] LABS: HEMATOCRIT 22.5 % (42.0-52.0); HEMOGLOBIN 7.5 G/DL (14.2-18.0); MEAN CORPUSCULAR VOLUME 82 FL (80-99); PLATELET COUNT 220 K/UL (150-450); RED BLOOD COUNT 2.74 M/UL (4.70-6.10); RED CELL DISTRIBUTION WIDTH 17.6 % (11.6-14.8)
[2019-07-25 08:39] LABS: BASOPHILS % (AUTO) 0.7 % (0.0-2.0); EOSINOPHILS % (AUTO) 1.2 % (0.0-3.0); LYMPHOCYTES % (AUTO) 27.6 % (20.0-45.0); MONOCYTES % (AUTO) 7.3 % (1.0-10.0); NEUTROPHILS % (AUTO) 63.2 % (45.0-75.0)
[2019-07-25 08:49] LABS: ALANINE AMINOTRANSFERASE 8 U/L (12-78); ALBUMIN 1.2 G/DL (3.4-5.0); ALBUMIN/GLOBULIN RATIO 0.3 (1.0-2.7); ALKALINE PHOSPHATASE 105 U/L (46-116); ANION GAP 10 mmol/L (5-15); ASPARTATE AMINO TRANSFERASE 24 U/L (15-37); BILIRUBIN,TOTAL 0.2 MG/DL (0.2-1.0); BLOOD UREA NITROGEN 34 mg/dL (7-18); CALCIUM 8.4 MG/DL (8.5-10.1); CARBON DIOXIDE 21 MMOL/L (21-32); CHLORIDE 113 MMOL/L (98-107); CREATININE 1.5 MG/DL (0.55-1.30); POTASSIUM 3.5 MMOL/L (3.5-5.1); SODIUM 144 MMOL/L (136-145)
[2019-07-25 08:58] LABS: PHOSPHORUS 3.7 MG/DL (2.5-4.9)
[2019-07-25] MEDS: Carvedilol 12.5mg tab NG SCH ×2 (09:12→20:56)
[2019-07-25] MEDS: Bactrim SS Tab ORAL SCH (09:13)
--- NOTE | 2019-07-25 09:45 | General Progress Note ---
Assessment/Plan Assessment/Plan: 1. History of HIV. 2.thrombocytopenia 3. Anemia. 4. Sepsis. 5. UTIs with MRSA. 6. Hypertension. 7. COPD. 8. BPH. 9. Sacral decubital ulcerations, stage III. 10. Malnutrition. 11. pancreatitis 12. Dilated IHD CT of abd and pelvic>>>reviewed repeat labs in am improving WBC abx per ID s/p GT placement tolerating GTF GT care off heparin given thrombocytopenia Subjective ROS Limited/Unobtainable: No Allergies: Coded Allergies: No Known Allergies (Unverified , 03/02/19) Subjective confused pulled NGT now replaced Objective Last 24 Hour Vital Signs Date Time Temp Pulse Resp B/P (MAP) Pulse Ox O2 Delivery O2 Flow Rate FiO2 07/25/19 09:12 82 138/66 07/25/19 08:00 99.1 82 22 138/66 (90) 95 07/25/19 04:00 99.5 86 22 132/68 (89) 97 07/25/19 00:00 100.0 87 19 147/77 (100) 97 07/24/19 21:14 89 152/77 07/24/19 21:00 Room Air 07/24/19 20:00 99.0 89 20 152/77 (102) 93 07/24/19 16:00 97.4 85 20 95/49 (64) 97 07/24/19 13:16 98/56 07/24/19 12:00 97.6 78 19 98/56 (70) 96 Intake and Output 07/24/19 07/25/19 19:00 07:00 Intake Total 920 ml 920 ml Output Total 800 ml Balance 120 ml 920 ml Free Water 200 ml 260 ml Tube Feeding 720 ml 660 ml Output Urine Total 800 ml Laboratory Tests 07/24/19 16:40: Amylase Level 184H, Lipase 1420H 07/25/19 08:15: White Blood Count 12.0H, Red Blood Count 2.74L, Hemoglobin 7.5L, Hematocrit 22.5L, Mean Corpuscular Volume 82, Mean Corpuscular Hemoglobin 27.3, Mean Corpuscular Hemoglobin Concent 33.2, Red Cell Distribution Width 17.6H, Platelet Count 220, Mean Platelet Volume 7.3, Neutrophils (%) (Auto) 63.2, Lymphocytes (%) (Auto) 27.6, Monocytes (%) (Auto) 7.3, Eosinophils (%) (Auto) 1.2, Basophils (%) (Auto) 0.7, Sodium Level 144, Potassium Level 3.5, Chloride Level 113H, Carbon Dioxide Level 21, Anion Gap 10, Blood Urea Nitrogen 34H, Creatinine 1.5H, Estimat Glomerular Filtration Rate 57.0, Glucose Level 112H, Calcium Level 8.4L, Phosphorus Level 3.7, Magnesium Level 1.7L, Total Bilirubin 0.2, Aspartate Amino Transf (AST/SGOT) 24, Alanine Aminotransferase (ALT/SGPT) 8L, Alkaline Phosphatase 105, C-Reactive Protein, Quantitative 11.5H, Pro-B- Type Natriuretic Peptide 3089H, Total Protein 5.7L, Albumin 1.2L, Globulin 4.5, Albumin/Globulin Ratio 0.3L Height (Feet): 6 Height (Inches): 0.00 Weight (Pounds): 165 General Appearance: lethargic EENT: normal ENT inspection Neck: supple Cardiovascular: normal rate Respiratory/Chest: decreased breath sounds Abdomen: normal bowel sounds, non tender, soft Extremities: non-tender Mansoor Interiano MD Jul 25, 2019 09:45
--- NOTE | 2019-07-25 10:36 | Nephrology Progress Note ---
Assessment/Plan Problem List: (1) Pancreatitis (2) Hypothermia (3) Hypertension (4) COPD (chronic obstructive pulmonary disease) (5) BPH (benign prostatic hyperplasia) (6) HIV disease (7) Anemia (8) Hypoalbuminemia Assessment Acute renal failure, partly dehydration Anemia Hypoalbuminemia High lipase level of 1999, Pancreatitis UTI Hypothermia Toxic metabolic encephalopathy Sepsis Decubitus skin ulcer Hypothyroid Plan GT tube since July 22 labs reviewed Last serum creatinine 1. 5 Will discontinue Bicitra 1 L D5W for hypernatremia Trial of albumin and Lasix as needed Patient has Macario catheter so will discontinue Flomax Suggested blood transfusion for low hemoglobin as needed Add Coreg increase the dose accordingly as needed Remains full code Today's labs were reviewed Previously ; patient refusing most of his oral medications, however now has NG tube Will attempt to discontinue what can be changing to intravenous from p.o. and or NG tube route magnesium sulfate and potassium as needed 24-hour urine measurement for total protein results noted unremarkable Add allopurinol 2D echocardiogram results suggestive of ejection fraction of 50% Kidney ultrasound unremarkable Urine studies Anemia work-up noted Monitor renal parameters Antibiotics Avoid nephrotoxic's Per orders Subjective ROS Limited/Unobtainable: No Constitutional: Reports: malaise, weakness Objective Objective Last 24 Hour Vital Signs Date Time Temp Pulse Resp B/P (MAP) Pulse Ox O2 Delivery O2 Flow Rate FiO2 07/25/19 09:12 82 138/66 07/25/19 08:00 99.1 82 22 138/66 (90) 95 07/25/19 04:00 99.5 86 22 132/68 (89) 97 07/25/19 00:00 100.0 87 19 147/77 (100) 97 07/24/19 21:14 89 152/77 07/24/19 21:00 Room Air 07/24/19 20:00 99.0 89 20 152/77 (102) 93 07/24/19 16:00 97.4 85 20 95/49 (64) 97 07/24/19 13:16 98/56 07/24/19 12:00 97.6 78 19 98/56 (70) 96 Intake and Output 07/24/19 07/25/19 19:00 07:00 Intake Total 920 ml 920 ml Output Total 800 ml Balance 120 ml 920 ml Free Water 200 ml 260 ml Tube Feeding 720 ml 660 ml Output Urine Total 800 ml Laboratory Tests 07/24/19 16:40: Amylase Level 184H, Lipase 1420H 07/25/19 08:15: White Blood Count 12.0H, Red Blood Count 2.74L, Hemoglobin 7.5L, Hematocrit 22.5L, Mean Corpuscular Volume 82, Mean Corpuscular Hemoglobin 27.3, Mean Corpuscular Hemoglobin Concent 33.2, Red Cell Distribution Width 17.6H, Platelet Count 220, Mean Platelet Volume 7.3, Neutrophils (%) (Auto) 63.2, Lymphocytes (%) (Auto) 27.6, Monocytes (%) (Auto) 7.3, Eosinophils (%) (Auto) 1.2, Basophils (%) (Auto) 0.7, Sodium Level 144, Potassium Level 3.5, Chloride Level 113H, Carbon Dioxide Level 21, Anion Gap 10, Blood Urea Nitrogen 34H, Creatinine 1.5H, Estimat Glomerular Filtration Rate 57.0, Glucose Level 112H, Calcium Level 8.4L, Phosphorus Level 3.7, Magnesium Level 1.7L, Total Bilirubin 0.2, Aspartate Amino Transf (AST/SGOT) 24, Alanine Aminotransferase (ALT/SGPT) 8L, Alkaline Phosphatase 105, C-Reactive Protein, Quantitative 11.5H, Pro-B- Type Natriuretic Peptide 3089H, Total Protein 5.7L, Albumin 1.2L, Globulin 4.5, Albumin/Globulin Ratio 0.3L Height (Feet): 6 Height (Inches): 0.00 Weight (Pounds): 165 General Appearance: no apparent distress, lethargic Respiratory/Chest: decreased breath sounds Abdomen: distended Extremities: moderate edema Objective No change Zander Razo MD Jul 25, 2019 10:36
[2019-07-25 12:00] VITALS: BP 134/64
[2019-07-25] MEDS: Nitroglycerin Patch 0.4mg TDERMAL SCH (12:27)
--- NOTE | 2019-07-25 12:40 | Pulmonology Progress Note ---
Assessment/Plan Problems: (1) Sepsis Assessment & Plan: improved, (2) Altered level of consciousness (3) COPD (chronic obstructive pulmonary disease) (4) Pancreatitis (5) Decubitus skin ulcer (6) Hypertension (7) BPH (benign prostatic hyperplasia) (8) HIV disease Assessment/Plan WBC lower today, in normal range h/h stable, OB stool negative X two absolute CD4 count noted mental status improved wound care iv abx adams culture, VRE positive, BC negative f/u amylase lipase s/p PEG placement, tolerating feeding well dvt prophylaxis. Subjective ROS Limited/Unobtainable: No Constitutional: Reports: no symptoms HEENT: Repors: no symptoms Respiratory: Reports: no symptoms Allergies: Coded Allergies: No Known Allergies (Unverified , 03/02/19) Objective Last 24 Hour Vital Signs Date Time Temp Pulse Resp B/P (MAP) Pulse Ox O2 Delivery O2 Flow Rate FiO2 07/25/19 12:27 134/64 07/25/19 09:12 82 138/66 07/25/19 09:00 Room Air 07/25/19 08:00 99.1 82 22 138/66 (90) 95 07/25/19 04:00 99.5 86 22 132/68 (89) 97 07/25/19 00:00 100.0 87 19 147/77 (100) 97 07/24/19 21:14 89 152/77 07/24/19 21:00 Room Air 07/24/19 20:00 99.0 89 20 152/77 (102) 93 07/24/19 16:00 97.4 85 20 95/49 (64) 97 07/24/19 13:16 98/56 Intake and Output 07/24/19 07/25/19 19:00 07:00 Intake Total 920 ml 920 ml Output Total 800 ml Balance 120 ml 920 ml Free Water 200 ml 260 ml Tube Feeding 720 ml 660 ml Output Urine Total 800 ml Objective General Appearance: cachectic HEENT: normocephalic Respiratory/Chest: chest wall non-tender, lungs clear Cardiovascular: normal rate, regular rhythm Abdomen: normal bowel sounds, no organomegaly Extremities: no cyanosis Bed bound Laboratory Tests 07/24/19 16:40: Amylase Level 184H, Lipase 1420H 07/25/19 08:15: White Blood Count 12.0H, Red Blood Count 2.74L, Hemoglobin 7.5L, Hematocrit 22.5L, Mean Corpuscular Volume 82, Mean Corpuscular Hemoglobin 27.3, Mean Corpuscular Hemoglobin Concent 33.2, Red Cell Distribution Width 17.6H, Platelet Count 220, Mean Platelet Volume 7.3, Neutrophils (%) (Auto) 63.2, Lymphocytes (%) (Auto) 27.6, Monocytes (%) (Auto) 7.3, Eosinophils (%) (Auto) 1.2, Basophils (%) (Auto) 0.7, Sodium Level 144, Potassium Level 3.5, Chloride Level 113H, Carbon Dioxide Level 21, Anion Gap 10, Blood Urea Nitrogen 34H, Creatinine 1.5H, Estimat Glomerular Filtration Rate 57.0, Glucose Level 112H, Calcium Level 8.4L, Phosphorus Level 3.7, Magnesium Level 1.7L, Total Bilirubin 0.2, Aspartate Amino Transf (AST/SGOT) 24, Alanine Aminotransferase (ALT/SGPT) 8L, Alkaline Phosphatase 105, C-Reactive Protein, Quantitative 11.5H, Pro-B- Type Natriuretic Peptide 3089H, Total Protein 5.7L, Albumin 1.2L, Globulin 4.5, Albumin/Globulin Ratio 0.3L Current Medications Medications (Trade) Dose Ordered Sig/Deborah Route PRN Reason Start Time Stop Time Status Last Admin Dose Admin Acetaminophen (Tylenol) 650 mg Q4H PRN ORAL fever 07/08/19 19:45 08/07/19 19:44 07/22/19 09:48 Allopurinol (allopurinoL) 300 mg DAILY ORAL 07/14/19 09:00 08/13/19 08:59 07/25/19 09:12 Carvedilol (Coreg) 12.5 mg EVERY 12 HOURS NG 07/22/19 21:00 08/17/19 10:44 07/25/19 09:12 Chlorhexidine Gluconate (Leslie-Hex 2%) 1 applic DAILY@1999 TOPIC 07/19/19 20:00 10/17/19 19:59 Dextrose (Dextrose 50%) 25 ml Q30M PRN IV Hypoglycemia 07/13/19 14:00 10/11/19 13:59 07/15/19 21:31 Dextrose (Dextrose 50%) 50 ml Q30M PRN IV Hypoglycemia 07/13/19 14:00 10/11/19 13:59 07/14/19 11:33 Hydralazine HCl (Apresoline) 25 mg Q4HR PRN ORAL BP over 160 systolic 07/09/19 14:45 10/07/19 14:44 07/22/19 09:48 Insulin Aspart (NovoLOG) BEFORE MEALS AND HS SUBQ 07/13/19 16:30 10/11/19 16:29 Lansoprazole (Prevacid) 30 mg BID NG 07/19/19 18:00 08/18/19 08:59 07/25/19 09:12 Linaclotide (Linzess) 290 mcg BEFORE BREAKFAST ORAL 07/19/19 06:30 10/17/19 06:29 07/25/19 06:24 Nitroglycerin (Ntg) 0.4 mg Q5M PRN SL Prn Chest Pain 07/08/19 19:45 08/07/19 19:44 Nitroglycerin (Ntg) 1 patch Q24H TDERMAL 07/10/19 13:00 08/09/19 12:59 07/25/19 12:27 Ondansetron HCl (Zofran) 4 mg Q6H PRN IVP Nausea & Vomiting 07/08/19 19:45 08/07/19 19:44 Polyethylene Glycol (Miralax) 17 gm DAILYPRN PRN ORAL Constipation 07/08/19 19:45 08/07/19 19:44 Trimethoprim/ Sulfamethoxazole (Bactrim Single Strength) 1 tab DAILY ORAL 07/13/19 09:00 08/18/19 23:59 07/25/19 09:13 Rico Chavarria MD Jul 25, 2019 12:40
[2019-07-25] MEDS ORDERED: Tubing IV Secondary IV ONE (14:42)
[2019-07-25] MEDS ORDERED: LR 1000ml ONE (14:42)
[2019-07-25] MEDS ORDERED: Sterile Water Irrig 1000ml IRRIG ONE (14:42)
[2019-07-25 16:00] VITALS: BP 120/53
[2019-07-25 19:53] VITALS: BP 119/55
[2019-07-25] MEDS: Dyna-Hex 2% Top Sol 2oz TOPIC SCH (20:00)
[2019-07-26 00:28] VITALS: BP 123/60
[2019-07-26 04:00] VITALS: BP 118/59
[2019-07-26] MEDS: NovoLOG Insulin Flexpen SUBQ SCH ×4 (05:10→20:30)
[2019-07-26 06:55] LABS: HEMATOCRIT 23.6 % (42.0-52.0); HEMOGLOBIN 7.7 G/DL (14.2-18.0); MEAN CORPUSCULAR VOLUME 85 FL (80-99); PLATELET COUNT 222 K/UL (150-450); RED BLOOD COUNT 2.79 M/UL (4.70-6.10); RED CELL DISTRIBUTION WIDTH 18.2 % (11.6-14.8); WHITE BLOOD COUNT 8.4 K/UL (4.8-10.8)
[2019-07-26 07:53] LABS: ALANINE AMINOTRANSFERASE 8 U/L (12-78); ALBUMIN 1.2 G/DL (3.4-5.0); ALBUMIN/GLOBULIN RATIO 0.2 (1.0-2.7); ALKALINE PHOSPHATASE 107 U/L (46-116); ANION GAP 12 mmol/L (5-15); ASPARTATE AMINO TRANSFERASE 33 U/L (15-37); BILIRUBIN,TOTAL 0.2 MG/DL (0.2-1.0); BLOOD UREA NITROGEN 36 mg/dL (7-18); CALCIUM 8.4 MG/DL (8.5-10.1); CARBON DIOXIDE 18 MMOL/L (21-32); CHLORIDE 114 MMOL/L (98-107); CREATININE 1.4 MG/DL (0.55-1.30); POTASSIUM 3.7 MMOL/L (3.5-5.1); SODIUM 144 MMOL/L (136-145)
[2019-07-26 08:00] VITALS: BP 136/79
[2019-07-26] MEDS: Carvedilol 12.5mg tab NG SCH ×2 (09:52→20:30)
[2019-07-26] MEDS: Bactrim SS Tab ORAL SCH (09:52)
--- NOTE | 2019-07-26 10:38 | General Progress Note ---
Assessment/Plan Assessment/Plan: 1. History of HIV. 2.thrombocytopenia 3. Anemia. 4. Sepsis. 5. UTIs with MRSA. 6. Hypertension. 7. COPD. 8. BPH. 9. Sacral decubital ulcerations, stage III. 10. Malnutrition. 11. pancreatitis 12. Dilated IHD CT of abd and pelvic>>>reviewed repeat labs in am improving WBC abx per ID s/p GT placement tolerating GTF GT care off heparin given thrombocytopenia Subjective ROS Limited/Unobtainable: No Allergies: Coded Allergies: No Known Allergies (Unverified , 03/02/19) Subjective confused pulled NGT now replaced Objective Last 24 Hour Vital Signs Date Time Temp Pulse Resp B/P (MAP) Pulse Ox O2 Delivery O2 Flow Rate FiO2 07/26/19 09:52 73 136/79 07/26/19 08:00 97.3 73 19 136/79 (98) 94 07/26/19 04:00 98.7 91 20 118/59 (78) 94 07/26/19 00:28 98.9 90 20 123/60 (81) 94 07/25/19 20:57 Room Air 07/25/19 20:56 93 119/55 07/25/19 19:53 98.9 93 20 119/55 (76) 94 07/25/19 17:56 98.6 07/25/19 16:00 100.0 85 20 120/53 (75) 92 07/25/19 12:27 134/64 07/25/19 12:00 97.9 83 22 134/64 (87) 93 Intake and Output 07/25/19 07/26/19 19:00 07:00 Intake Total 920 ml 980 ml Output Total 800 ml 600 ml Balance 120 ml 380 ml Free Water 200 ml 200 ml Tube Feeding 720 ml 780 ml Output Urine Total 800 ml 600 ml # Voids 2 1 # Bowel Movements 1 Laboratory Tests 07/26/19 04:30: White Blood Count 8.4, Red Blood Count 2.79L, Hemoglobin 7.7L, Hematocrit 23.6L , Mean Corpuscular Volume 85, Mean Corpuscular Hemoglobin 27.5, Mean Corpuscular Hemoglobin Concent 32.4, Red Cell Distribution Width 18.2H, Platelet Count 222, Mean Platelet Volume 6.9, Neutrophils (%) (Auto) , Lymphocytes (%) (Auto) , Monocytes (%) (Auto) , Eosinophils (%) (Auto) , Basophils (%) (Auto) , Differential Total Cells Counted 100, Neutrophils % ( Manual) 68, Lymphocytes % (Manual) 17L, Monocytes % (Manual) 11H, Eosinophils % (Manual) 2, Basophils % (Manual) 2, Band Neutrophils 0, Platelet Estimate Adequate, Platelet Morphology Normal, Hypochromasia 3+, Anisocytosis 2+, Sodium Level 144, Potassium Level 3.7, Chloride Level 114H, Carbon Dioxide Level 18L, Anion Gap 12, Blood Urea Nitrogen 36H, Creatinine 1.4H, Estimat Glomerular Filtration Rate > 60, Glucose Level 102, Calcium Level 8.4L, Total Bilirubin 0.2 , Aspartate Amino Transf (AST/SGOT) 33, Alanine Aminotransferase (ALT/SGPT) 8L, Alkaline Phosphatase 107, Pro-B-Type Natriuretic Peptide 3312H, Total Protein 6.4, Albumin 1.2L, Globulin 5.2, Albumin/Globulin Ratio 0.2L Height (Feet): 6 Height (Inches): 0.00 Weight (Pounds): 165 General Appearance: lethargic EENT: normal ENT inspection Neck: supple Cardiovascular: normal rate Respiratory/Chest: decreased breath sounds Abdomen: normal bowel sounds, non tender, soft Extremities: non-tender Mansoor Interiano MD Jul 26, 2019 10:38
--- NOTE | 2019-07-26 11:23 | Diagnostic Imaging Report ---
Indication: Shortness of breath Technique: One view of the chest Comparison: 07/15/2019 Findings: Bilateral basilar linear and hazy opacities are overall unchanged, although there is slightly decreased atelectasis at the left lung base. The upper lungs remain clear. There is suggestion of a small left pleural effusion, unchanged. There is a gastrostomy. Impression: Decreased atelectasis at the left lung base. Otherwise little change since prior study of 07/15/2019
--- NOTE | 2019-07-26 11:55 | Infectious Diseases Prog Note ---
Assessment/Plan Assessment/Plan 63yo man admitted with abdominal pain and diarrhea. Afebrile Leukocytosis ( Ch, doubt ID related ) ; fluctuating, Sp ? ALOC, improving probable UTI 07/14 UA positive, UCx: Ilda albicans Hx of Diarrhea/colitis- 07/17 CT Abd: Anasarca, with severe edema of the subcutaneous fat, abdominal retroperitoneal fat. There is also trace intraperitoneal fluid and bilateral pleural effusions. No definite acute abdominal process otherwise. No evidence of bowel obstruction. Evidence of rectal fecal incontinence. Nasogastric tube in good position. Retained urine within the bladder lumen, despite the presence of a Macario catheter. Mild bladder wall thickening. Indicate cystitis. Bilateral pleural effusions, as mentioned earlier. Resultant compressive atelectatic changes at both lung bases. Evidence of bullous COPD. Hazy parenchymal opacity may be related to COPD, but could also indicate mild pulmonary edema given other findings of anasarca Severe bilateral hip degenerative changes, also previously demonstrated. 03/02 CT: Suspected colitis with the thickening of the wall the colon. Correlate clinically. Thickening of the wall the urinary bladder. Correlate for cystitis. C diff negative x2 stool cx negative stool o/p x1 negative -Negative: E. histolytica ab, Echinococcus ab pt has refused colonoscopy in the past HIV Screen positive- new diagnosis in February 2019 HIV-1 Abt positive. 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 03/04/19 CD4 180 (7.2%) 06/2009 CD4 143 RPR negative no evid of biliary - US : Mild intrahepatic biliary ductal dilatation. MRI of brain ( could not be done ) COPD. Hypertension. BPH. History of cocaine abuse in the past. Bedbound. PLAN: on Bactrim SS for PCP PPx 07/20 SP diflucan #3 07/17 SP Ceftriaxone #3 07/12 SP IV Vanco and Cefepime # / monitor CBC, temp once DCed back to SNF, pt should f/u HIV specialist and start ART, renally adjusted through G tube. Rx options for ART at [facility] limited and given changing renal function, would want to start when renal function is stable and to be followed by a HIV specialist in an outpatient setting. HIV Genotype: P as of 07/24 SANDI RN Subjective Allergies: Coded Allergies: No Known Allergies (Unverified , 03/02/19) Subjective Afebrile. on RA. lethargic but pt is more interactive stating clearly "i want to be left alone" denies sob or abd pain Objective Vital Signs Last 24 Hour Vital Signs Date Time Temp Pulse Resp B/P (MAP) Pulse Ox O2 Delivery O2 Flow Rate FiO2 07/26/19 09:52 73 136/79 07/26/19 08:00 97.3 73 19 136/79 (98) 94 07/26/19 04:00 98.7 91 20 118/59 (78) 94 07/26/19 00:28 98.9 90 20 123/60 (81) 94 07/25/19 20:57 Room Air 07/25/19 20:56 93 119/55 07/25/19 19:53 98.9 93 20 119/55 (76) 94 07/25/19 17:56 98.6 07/25/19 16:00 100.0 85 20 120/53 (75) 92 07/25/19 12:27 134/64 07/25/19 12:00 97.9 83 22 134/64 (87) 93 Height (Feet): 6 Height (Inches): 0.00 Weight (Pounds): 165 Objective Gen: NAD. CV: RRR Resp: coarse. regular. equal chest rise Abd: soft. MSK: anasarca Neuro: opens eyes to voice. Laboratory Tests Test 07/26/19 04:30 White Blood Count 8.4 K/UL (4.8-10.8) Red Blood Count 2.79 M/UL (4.70-6.10) L Hemoglobin 7.7 G/DL (14.2-18.0) L Hematocrit 23.6 % (42.0-52.0) L Mean Corpuscular Volume 85 FL (80-99) Mean Corpuscular Hemoglobin 27.5 PG (27.0-31.0) Mean Corpuscular Hemoglobin Concent 32.4 G/DL (32.0-36.0) Red Cell Distribution Width 18.2 % (11.6-14.8) H Platelet Count 222 K/UL (150-450) Mean Platelet Volume 6.9 FL (6.5-10.1) Neutrophils (%) (Auto) % (45.0-75.0) Lymphocytes (%) (Auto) % (20.0-45.0) Monocytes (%) (Auto) % (1.0-10.0) Eosinophils (%) (Auto) % (0.0-3.0) Basophils (%) (Auto) % (0.0-2.0) Differential Total Cells Counted 100 Neutrophils % (Manual) 68 % (45-75) Lymphocytes % (Manual) 17 % (20-45) L Monocytes % (Manual) 11 % (1-10) H Eosinophils % (Manual) 2 % (0-3) Basophils % (Manual) 2 % (0-2) Band Neutrophils 0 % (0-8) Platelet Estimate Adequate Platelet Morphology Normal Hypochromasia 3+ Anisocytosis 2+ Sodium Level 144 MMOL/L (136-145) Potassium Level 3.7 MMOL/L (3.5-5.1) Chloride Level 114 MMOL/L (98-107) H Carbon Dioxide Level 18 MMOL/L (21-32) L Anion Gap 12 mmol/L (5-15) Blood Urea Nitrogen 36 mg/dL (7-18) H Creatinine 1.4 MG/DL (0.55-1.30) H Estimat Glomerular Filtration Rate > 60 mL/min (>60) Glucose Level 102 MG/DL (74-106) Calcium Level 8.4 MG/DL (8.5-10.1) L Total Bilirubin 0.2 MG/DL (0.2-1.0) Aspartate Amino Transf (AST/SGOT) 33 U/L (15-37) Alanine Aminotransferase (ALT/SGPT) 8 U/L (12-78) L Alkaline Phosphatase 107 U/L (46-116) Pro-B-Type Natriuretic Peptide 3312 pg/mL (0-125) H Total Protein 6.4 G/DL (6.4-8.2) Albumin 1.2 G/DL (3.4-5.0) L Globulin 5.2 g/dL Albumin/Globulin Ratio 0.2 (1.0-2.7) L Current Medications Medications (Trade) Dose Ordered Sig/Deborah Route PRN Reason Start Time Stop Time Status Last Admin Dose Admin Acetaminophen (Tylenol) 650 mg Q4H PRN ORAL fever 07/08/19 19:45 08/07/19 19:44 07/25/19 17:26 Allopurinol (allopurinoL) 300 mg DAILY ORAL 07/14/19 09:00 08/13/19 08:59 07/26/19 09:52 Carvedilol (Coreg) 12.5 mg EVERY 12 HOURS NG 07/22/19 21:00 08/17/19 10:44 07/26/19 09:52 Chlorhexidine Gluconate (Leslie-Hex 2%) 1 applic DAILY@2000 TOPIC 07/19/19 20:00 10/17/19 19:59 Dextrose (Dextrose 50%) 25 ml Q30M PRN IV Hypoglycemia 07/13/19 14:00 10/11/19 13:59 07/15/19 21:31 Dextrose (Dextrose 50%) 50 ml Q30M PRN IV Hypoglycemia 07/13/19 14:00 10/11/19 13:59 07/14/19 11:33 Hydralazine HCl (Apresoline) 25 mg Q4HR PRN ORAL BP over 160 systolic 07/09/19 14:45 10/07/19 14:44 07/22/19 09:48 Insulin Aspart (NovoLOG) BEFORE MEALS AND HS SUBQ 07/13/19 16:30 10/11/19 16:29 Lansoprazole (Prevacid) 30 mg BID NG 07/19/19 18:00 08/18/19 08:59 07/26/19 09:52 Linaclotide (Linzess) 290 mcg BEFORE BREAKFAST ORAL 07/19/19 06:30 10/17/19 06:29 07/25/19 06:24 Nitroglycerin (Ntg) 0.4 mg Q5M PRN SL Prn Chest Pain 07/08/19 19:45 08/07/19 19:44 Nitroglycerin (Ntg) 1 patch Q24H TDERMAL 07/10/19 13:00 08/09/19 12:59 07/25/19 12:27 Ondansetron HCl (Zofran) 4 mg Q6H PRN IVP Nausea & Vomiting 07/08/19 19:45 08/07/19 19:44 Polyethylene Glycol (Miralax) 17 gm DAILYPRN PRN ORAL Constipation 07/08/19 19:45 08/07/19 19:44 Trimethoprim/ Sulfamethoxazole (Bactrim Single Strength) 1 tab DAILY ORAL 07/13/19 09:00 08/18/19 23:59 07/26/19 09:52 Olegario Carroll MD Jul 26, 2019 11:55
--- NOTE | 2019-07-26 12:44 | Pulmonology Progress Note ---
Assessment/Plan Problems: (1) Sepsis Assessment & Plan: improved, (2) Altered level of consciousness (3) COPD (chronic obstructive pulmonary disease) (4) Pancreatitis (5) Decubitus skin ulcer (6) Feeding by G-tube (7) HIV disease (8) BPH (benign prostatic hyperplasia) (9) Hypertension Assessment/Plan WBC lower today, in normal range h/h stable, OB stool negative X two absolute CD4 count noted mental status improved wound care iv abx adams culture, VRE positive, BC negative f/u amylase lipase s/p PEG placement, tolerating feeding well dvt prophylaxis. Subjective ROS Limited/Unobtainable: Yes Allergies: Coded Allergies: No Known Allergies (Unverified , 03/02/19) Objective Last 24 Hour Vital Signs Date Time Temp Pulse Resp B/P (MAP) Pulse Ox O2 Delivery O2 Flow Rate FiO2 07/26/19 09:52 73 136/79 07/26/19 08:00 97.3 73 19 136/79 (98) 94 07/26/19 04:00 98.7 91 20 118/59 (78) 94 07/26/19 00:28 98.9 90 20 123/60 (81) 94 07/25/19 20:57 Room Air 07/25/19 20:56 93 119/55 07/25/19 19:53 98.9 93 20 119/55 (76) 94 07/25/19 17:56 98.6 07/25/19 16:00 100.0 85 20 120/53 (75) 92 Intake and Output 07/25/19 07/26/19 19:00 07:00 Intake Total 920 ml 980 ml Output Total 800 ml 600 ml Balance 120 ml 380 ml Free Water 200 ml 200 ml Tube Feeding 720 ml 780 ml Output Urine Total 800 ml 600 ml # Voids 2 1 # Bowel Movements 1 Objective General Appearance: cachectic HEENT: normocephalic Respiratory/Chest: chest wall non-tender, lungs clear Cardiovascular: normal rate, regular rhythm Abdomen: normal bowel sounds, no organomegaly Extremities: no cyanosis Bed bound Laboratory Tests 07/26/19 04:30: White Blood Count 8.4, Red Blood Count 2.79L, Hemoglobin 7.7L, Hematocrit 23.6L , Mean Corpuscular Volume 85, Mean Corpuscular Hemoglobin 27.5, Mean Corpuscular Hemoglobin Concent 32.4, Red Cell Distribution Width 18.2H, Platelet Count 222, Mean Platelet Volume 6.9, Neutrophils (%) (Auto) , Lymphocytes (%) (Auto) , Monocytes (%) (Auto) , Eosinophils (%) (Auto) , Basophils (%) (Auto) , Differential Total Cells Counted 100, Neutrophils % ( Manual) 68, Lymphocytes % (Manual) 17L, Monocytes % (Manual) 11H, Eosinophils % (Manual) 2, Basophils % (Manual) 2, Band Neutrophils 0, Platelet Estimate Adequate, Platelet Morphology Normal, Hypochromasia 3+, Anisocytosis 2+, Sodium Level 144, Potassium Level 3.7, Chloride Level 114H, Carbon Dioxide Level 18L, Anion Gap 12, Blood Urea Nitrogen 36H, Creatinine 1.4H, Estimat Glomerular Filtration Rate > 60, Glucose Level 102, Calcium Level 8.4L, Total Bilirubin 0.2 , Aspartate Amino Transf (AST/SGOT) 33, Alanine Aminotransferase (ALT/SGPT) 8L, Alkaline Phosphatase 107, Pro-B-Type Natriuretic Peptide 3312H, Total Protein 6.4, Albumin 1.2L, Globulin 5.2, Albumin/Globulin Ratio 0.2L Current Medications Medications (Trade) Dose Ordered Sig/Deborah Route PRN Reason Start Time Stop Time Status Last Admin Dose Admin Acetaminophen (Tylenol) 650 mg Q4H PRN ORAL fever 07/08/19 19:45 08/07/19 19:44 07/25/19 17:26 Allopurinol (allopurinoL) 300 mg DAILY ORAL 07/14/19 09:00 08/13/19 08:59 07/26/19 09:52 Carvedilol (Coreg) 12.5 mg EVERY 12 HOURS NG 07/22/19 21:00 08/17/19 10:44 07/26/19 09:52 Chlorhexidine Gluconate (Leslie-Hex 2%) 1 applic DAILY@1999 TOPIC 07/19/19 20:00 10/17/19 19:59 Dextrose (Dextrose 50%) 25 ml Q30M PRN IV Hypoglycemia 07/13/19 14:00 10/11/19 13:59 07/15/19 21:31 Dextrose (Dextrose 50%) 50 ml Q30M PRN IV Hypoglycemia 07/13/19 14:00 10/11/19 13:59 07/14/19 11:33 Hydralazine HCl (Apresoline) 25 mg Q4HR PRN ORAL BP over 160 systolic 07/09/19 14:45 10/07/19 14:44 07/22/19 09:48 Insulin Aspart (NovoLOG) BEFORE MEALS AND HS SUBQ 07/13/19 16:30 10/11/19 16:29 Lansoprazole (Prevacid) 30 mg BID NG 07/19/19 18:00 08/18/19 08:59 07/26/19 09:52 Linaclotide (Linzess) 290 mcg BEFORE BREAKFAST ORAL 07/19/19 06:30 10/17/19 06:29 07/25/19 06:24 Nitroglycerin (Ntg) 0.4 mg Q5M PRN SL Prn Chest Pain 07/08/19 19:45 08/07/19 19:44 Nitroglycerin (Ntg) 1 patch Q24H TDERMAL 07/10/19 13:00 08/09/19 12:59 07/25/19 12:27 Ondansetron HCl (Zofran) 4 mg Q6H PRN IVP Nausea & Vomiting 07/08/19 19:45 08/07/19 19:44 Polyethylene Glycol (Miralax) 17 gm DAILYPRN PRN ORAL Constipation 07/08/19 19:45 08/07/19 19:44 Trimethoprim/ Sulfamethoxazole (Bactrim Single Strength) 1 tab DAILY ORAL 07/13/19 09:00 08/18/19 23:59 07/26/19 09:52 Rico Chavarria MD Jul 26, 2019 12:44
--- NOTE | 2019-07-26 13:21 | Nephrology Progress Note ---
Assessment/Plan Problem List: (1) Pancreatitis (2) Hypothermia (3) Hypertension (4) COPD (chronic obstructive pulmonary disease) (5) BPH (benign prostatic hyperplasia) (6) HIV disease (7) Anemia (8) Hypoalbuminemia Assessment Acute renal failure, partly dehydration Anemia Hypoalbuminemia High lipase level of 1999, Pancreatitis UTI Hypothermia Toxic metabolic encephalopathy Sepsis Decubitus skin ulcer Hypothyroid Plan Patient has a GT tube now since July 22 labs reviewed Last serum creatinine 1. 4 Will discontinue Bicitra 1 L D5W for hypernatremia Trial of albumin and Lasix as needed Patient has Macario catheter so will discontinue Flomax Suggested blood transfusion for low hemoglobin as needed Add Coreg increase the dose accordingly as needed Remains full code Today's labs were reviewed Previously ; patient refusing most of his oral medications, however now has NG tube Will attempt to discontinue what can be changing to intravenous from p.o. and or NG tube route magnesium sulfate and potassium as needed 24-hour urine measurement for total protein results noted unremarkable Add allopurinol 2D echocardiogram results suggestive of ejection fraction of 50% Kidney ultrasound unremarkable Urine studies Anemia work-up noted Monitor renal parameters Antibiotics Avoid nephrotoxic's Per orders Subjective ROS Limited/Unobtainable: No Constitutional: Reports: malaise, weakness Objective Objective Last 24 Hour Vital Signs Date Time Temp Pulse Resp B/P (MAP) Pulse Ox O2 Delivery O2 Flow Rate FiO2 07/26/19 09:52 73 136/79 07/26/19 08:00 97.3 73 19 136/79 (98) 94 07/26/19 04:00 98.7 91 20 118/59 (78) 94 07/26/19 00:28 98.9 90 20 123/60 (81) 94 07/25/19 20:57 Room Air 07/25/19 20:56 93 119/55 07/25/19 19:53 98.9 93 20 119/55 (76) 94 07/25/19 17:56 98.6 07/25/19 16:00 100.0 85 20 120/53 (75) 92 Intake and Output 07/25/19 07/26/19 19:00 07:00 Intake Total 920 ml 980 ml Output Total 800 ml 600 ml Balance 120 ml 380 ml Free Water 200 ml 200 ml Tube Feeding 720 ml 780 ml Output Urine Total 800 ml 600 ml # Voids 2 1 # Bowel Movements 1 Laboratory Tests 07/26/19 04:30: White Blood Count 8.4, Red Blood Count 2.79L, Hemoglobin 7.7L, Hematocrit 23.6L , Mean Corpuscular Volume 85, Mean Corpuscular Hemoglobin 27.5, Mean Corpuscular Hemoglobin Concent 32.4, Red Cell Distribution Width 18.2H, Platelet Count 222, Mean Platelet Volume 6.9, Neutrophils (%) (Auto) , Lymphocytes (%) (Auto) , Monocytes (%) (Auto) , Eosinophils (%) (Auto) , Basophils (%) (Auto) , Differential Total Cells Counted 100, Neutrophils % ( Manual) 68, Lymphocytes % (Manual) 17L, Monocytes % (Manual) 11H, Eosinophils % (Manual) 2, Basophils % (Manual) 2, Band Neutrophils 0, Platelet Estimate Adequate, Platelet Morphology Normal, Hypochromasia 3+, Anisocytosis 2+, Sodium Level 144, Potassium Level 3.7, Chloride Level 114H, Carbon Dioxide Level 18L, Anion Gap 12, Blood Urea Nitrogen 36H, Creatinine 1.4H, Estimat Glomerular Filtration Rate > 60, Glucose Level 102, Calcium Level 8.4L, Total Bilirubin 0.2 , Aspartate Amino Transf (AST/SGOT) 33, Alanine Aminotransferase (ALT/SGPT) 8L, Alkaline Phosphatase 107, Pro-B-Type Natriuretic Peptide 3312H, Total Protein 6.4, Albumin 1.2L, Globulin 5.2, Albumin/Globulin Ratio 0.2L Height (Feet): 6 Height (Inches): 0.00 Weight (Pounds): 165 General Appearance: no apparent distress, lethargic Cardiovascular: normal rate Respiratory/Chest: decreased breath sounds Abdomen: distended, other - Has a GT tube now Objective No change Zander Razo MD Jul 26, 2019 13:21
[2019-07-26] MEDS: Nitroglycerin Patch 0.4mg TDERMAL SCH (15:15)
[2019-07-26 16:00] VITALS: BP 154/85
[2019-07-26 20:00] VITALS: BP 135/84
[2019-07-26] MEDS: Dyna-Hex 2% Top Sol 2oz TOPIC SCH (20:00)
[2019-07-27] VITALS: BP 130/80
[2019-07-27 04:00] VITALS: BP 130/81
[2019-07-27] MEDS: NovoLOG Insulin Flexpen SUBQ SCH ×4 (05:47→21:00)
[2019-07-27 08:00] VITALS: BP 155/75
--- NOTE | 2019-07-27 08:08 | Infectious Diseases Prog Note ---
Assessment/Plan Assessment/Plan 63yo man admitted with abdominal pain and diarrhea. Afebrile Leukocytosis ( Ch, doubt ID related ) ; fluctuating, Sp ? ALOC, improving probable UTI 07/14 UA positive, UCx: Ilda albicans Hx of Diarrhea/colitis- 07/17 CT Abd: Anasarca, with severe edema of the subcutaneous fat, abdominal retroperitoneal fat. There is also trace intraperitoneal fluid and bilateral pleural effusions. No definite acute abdominal process otherwise. No evidence of bowel obstruction. Evidence of rectal fecal incontinence. Nasogastric tube in good position. Retained urine within the bladder lumen, despite the presence of a Macario catheter. Mild bladder wall thickening. Indicate cystitis. Bilateral pleural effusions, as mentioned earlier. Resultant compressive atelectatic changes at both lung bases. Evidence of bullous COPD. Hazy parenchymal opacity may be related to COPD, but could also indicate mild pulmonary edema given other findings of anasarca Severe bilateral hip degenerative changes, also previously demonstrated. 03/02 CT: Suspected colitis with the thickening of the wall the colon. Correlate clinically. Thickening of the wall the urinary bladder. Correlate for cystitis. C diff negative x2 stool cx negative stool o/p x1 negative -Negative: E. histolytica ab, Echinococcus ab pt has refused colonoscopy in the past HIV Screen positive- new diagnosis in February 2019 HIV-1 Abt positive. 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 03/04/19 CD4 180 (7.2%) 06/2009 CD4 143 RPR negative no evid of biliary - US : Mild intrahepatic biliary ductal dilatation. MRI of brain ( could not be done ) COPD. Hypertension. BPH. History of cocaine abuse in the past. Bedbound. PLAN: on Bactrim SS for PCP PPx 07/20 SP diflucan #3 07/17 SP Ceftriaxone #3 07/12 SP IV Vanco and Cefepime # / monitor CBC, temp once DCed back to SNF, pt should f/u HIV specialist and start ART, renally adjusted through G tube. Rx options for ART at [facility] [place] limited and given changing renal function, would want to start when renal function is stable and to be followed by a HIV specialist in an outpatient setting. options are truvada(will need to be adjusted to renal fnc)+DTG BID or ritonavir liquid+DRV+truvada( adjust to renal fnc) HIV Genotype: P as of 07/24 SANDI RN Subjective Allergies: Coded Allergies: No Known Allergies (Unverified , 03/02/19) Subjective Afebrile. on RA. Pt is more awake today. denies chest pain, cough, sob, abd pain. but is confused and states he wants his wheels to move Objective Vital Signs Last 24 Hour Vital Signs Date Time Temp Pulse Resp B/P (MAP) Pulse Ox O2 Delivery O2 Flow Rate FiO2 07/27/19 04:00 98.4 79 20 130/81 (97) 96 07/27/19 00:00 98.6 75 20 130/80 (97) 97 07/26/19 21:00 Room Air 07/26/19 20:30 76 135/84 07/26/19 20:00 98.6 76 18 135/84 (101) 98 07/26/19 16:00 97.5 72 19 154/85 (108) 98 07/26/19 15:15 136/79 07/26/19 09:52 73 136/79 07/26/19 09:00 Room Air Height (Feet): 6 Height (Inches): 0.00 Weight (Pounds): 165 Objective Gen: NAD. CV: RRR Resp: coarse. regular. equal chest rise Abd: soft. G tube MSK: anasarca Neuro: opens eyes to voice. answers questions. Current Medications Medications (Trade) Dose Ordered Sig/Deborah Route PRN Reason Start Time Stop Time Status Last Admin Dose Admin Acetaminophen (Tylenol) 650 mg Q4H PRN ORAL fever 07/08/19 19:45 08/07/19 19:44 07/25/19 17:26 Allopurinol (allopurinoL) 300 mg DAILY GT 07/27/19 09:00 08/13/19 08:59 Carvedilol (Coreg) 12.5 mg EVERY 12 HOURS NG 07/22/19 21:00 08/17/19 10:44 07/26/19 20:30 Chlorhexidine Gluconate (Leslie-Hex 2%) 1 applic DAILY@1999 TOPIC 07/19/19 20:00 10/17/19 19:59 Dextrose (Dextrose 50%) 25 ml Q30M PRN IV Hypoglycemia 07/13/19 14:00 10/11/19 13:59 07/15/19 21:31 Dextrose (Dextrose 50%) 50 ml Q30M PRN IV Hypoglycemia 07/13/19 14:00 10/11/19 13:59 07/14/19 11:33 Hydralazine HCl (Apresoline) 25 mg Q4HR PRN ORAL BP over 160 systolic 07/09/19 14:45 10/07/19 14:44 07/22/19 09:48 Insulin Aspart (NovoLOG) BEFORE MEALS AND HS SUBQ 07/13/19 16:30 10/11/19 16:29 Lansoprazole (Prevacid) 30 mg BID NG 07/19/19 18:00 08/18/19 08:59 07/26/19 18:17 Linaclotide (Linzess) 290 mcg BEFORE BREAKFAST ORAL 07/19/19 06:30 10/17/19 06:29 07/27/19 05:47 Nitroglycerin (Ntg) 0.4 mg Q5M PRN SL Prn Chest Pain 07/08/19 19:45 08/07/19 19:44 Nitroglycerin (Ntg) 1 patch Q24H TDERMAL 07/10/19 13:00 08/09/19 12:59 07/26/19 15:15 Ondansetron HCl (Zofran) 4 mg Q6H PRN IVP Nausea & Vomiting 07/08/19 19:45 08/07/19 19:44 Polyethylene Glycol (Miralax) 17 gm DAILYPRN PRN ORAL Constipation 07/08/19 19:45 08/07/19 19:44 Trimethoprim/ Sulfamethoxazole (Bactrim Single Strength) 1 tab DAILY ORAL 07/13/19 09:00 08/18/19 23:59 07/26/19 09:52 Olegario Carroll MD Jul 27, 2019 08:08
[2019-07-27] MEDS: Bactrim SS Tab ORAL SCH (09:26)
[2019-07-27] MEDS: Carvedilol 12.5mg tab NG SCH ×2 (09:26→21:33)
[2019-07-27 09:35] LABS: HEMATOCRIT 24.2 % (42.0-52.0); HEMOGLOBIN 7.7 G/DL (14.2-18.0); MEAN CORPUSCULAR VOLUME 85 FL (80-99); PLATELET COUNT 307 K/UL (150-450); RED BLOOD COUNT 2.83 M/UL (4.70-6.10); RED CELL DISTRIBUTION WIDTH 20.4 % (11.6-14.8); WHITE BLOOD COUNT 10.4 K/UL (4.8-10.8)
--- NOTE | 2019-07-27 09:44 | General Progress Note ---
Assessment/Plan Assessment/Plan: 1. History of HIV. 2.thrombocytopenia 3. Anemia. 4. Sepsis. 5. UTIs with MRSA. 6. Hypertension. 7. COPD. 8. BPH. 9. Sacral decubital ulcerations, stage III. 10. Malnutrition. 11. pancreatitis 12. Dilated IHD CT of abd and pelvic>>>reviewed repeat labs in am improving WBC abx per ID s/p GT placement tolerating GTF GT care off heparin given thrombocytopenia Subjective ROS Limited/Unobtainable: No Allergies: Coded Allergies: No Known Allergies (Unverified , 03/02/19) Subjective confused pulled NGT now replaced Objective Last 24 Hour Vital Signs Date Time Temp Pulse Resp B/P (MAP) Pulse Ox O2 Delivery O2 Flow Rate FiO2 07/27/19 09:26 77 155/75 07/27/19 08:00 98.1 77 18 155/75 (101) 95 07/27/19 04:00 98.4 79 20 130/81 (97) 96 07/27/19 00:00 98.6 75 20 130/80 (97) 97 07/26/19 21:00 Room Air 07/26/19 20:30 76 135/84 07/26/19 20:00 98.6 76 18 135/84 (101) 98 07/26/19 16:00 97.5 72 19 154/85 (108) 98 07/26/19 15:15 136/79 07/26/19 09:52 73 136/79 Intake and Output 07/26/19 07/27/19 19:00 07:00 Intake Total 60 ml Output Total 1200 ml 800 ml Balance -1140 ml -800 ml Tube Feeding 60 ml Output Urine Total 1200 ml 800 ml # Voids 2 Laboratory Tests 07/27/19 08:55: White Blood Count 10.4, Red Blood Count 2.83L, Hemoglobin 7.7L, Hematocrit 24.2L , Mean Corpuscular Volume 85, Mean Corpuscular Hemoglobin 27.1, Mean Corpuscular Hemoglobin Concent 31.8L, Red Cell Distribution Width 20.4H, Platelet Count 307, Mean Platelet Volume 8.5, Neutrophils (%) (Auto) , Lymphocytes (%) (Auto) , Monocytes (%) (Auto) , Eosinophils (%) (Auto) , Basophils (%) (Auto) , Neutrophils % (Manual) [Pending], Lymphocytes % (Manual) [Pending], Platelet Estimate [Pending], Platelet Morphology [Pending], D-Dimer [ Pending], Sodium Level [Pending], Potassium Level [Pending], Chloride Level [ Pending], Carbon Dioxide Level [Pending], Blood Urea Nitrogen [Pending], Creatinine [Pending], Estimat Glomerular Filtration Rate [Pending], Glucose Level [Pending], Uric Acid [Pending], Calcium Level [Pending], Phosphorus Level [Pending], Magnesium Level [Pending], Total Bilirubin [Pending], Aspartate Amino Transf (AST/SGOT) [Pending], Alanine Aminotransferase (ALT/SGPT) [Pending] , Alkaline Phosphatase [Pending], Lactate Dehydrogenase [Pending], C-Reactive Protein, Quantitative [Pending], Total Protein [Pending], Albumin [Pending], Globulin [Pending] Height (Feet): 6 Height (Inches): 0.00 Weight (Pounds): 165 General Appearance: no apparent distress EENT: normal ENT inspection Neck: supple Cardiovascular: normal rate Respiratory/Chest: decreased breath sounds Abdomen: normal bowel sounds, non tender, soft Extremities: non-tender Mansoor Interiano MD Jul 27, 2019 09:44
[2019-07-27 09:58] LABS: ALANINE AMINOTRANSFERASE 24 U/L (12-78); ALBUMIN 1.2 G/DL (3.4-5.0); ALBUMIN/GLOBULIN RATIO 0.2 (1.0-2.7); ALKALINE PHOSPHATASE 112 U/L (46-116); ANION GAP 6 mmol/L (5-15); ASPARTATE AMINO TRANSFERASE 38 U/L (15-37); BILIRUBIN,TOTAL 0.2 MG/DL (0.2-1.0); BLOOD UREA NITROGEN 32 mg/dL (7-18); CALCIUM 8.4 MG/DL (8.5-10.1); CARBON DIOXIDE 26 MMOL/L (21-32); CHLORIDE 117 MMOL/L (98-107); CREATININE 1.4 MG/DL (0.55-1.30); LACTATE DEHYDROGENASE 136 U/L (81-234); PHOSPHORUS 3.3 MG/DL (2.5-4.9); POTASSIUM 3.7 MMOL/L (3.5-5.1); SODIUM 149 MMOL/L (136-145)
--- NOTE | 2019-07-27 11:51 | Nephrology Progress Note ---
Assessment/Plan Problem List: (1) Pancreatitis (2) Hypothermia (3) Hypertension (4) COPD (chronic obstructive pulmonary disease) (5) BPH (benign prostatic hyperplasia) (6) HIV disease (7) Anemia (8) Hypoalbuminemia Assessment Acute renal failure, partly dehydration Anemia Hypoalbuminemia High lipase level of 1999, Pancreatitis UTI Hypothermia Toxic metabolic encephalopathy Sepsis Decubitus skin ulcer Hypothyroid Plan GT tube July 22 Magnesium sulfate IV today Last serum creatinine 1.4 Will discontinue Bicitra 1 L D5W for hypernatremia as needed Trial of albumin and Lasix as needed Patient has Macario catheter so will discontinue Flomax Suggested blood transfusion for low hemoglobin as needed Add Coreg increase the dose accordingly as needed Remains full code Today's labs were reviewed Previously ; patient refusing most of his oral medications, however now has NG tube Will attempt to discontinue what can be changing to intravenous from p.o. and or NG tube route magnesium sulfate and potassium as needed 24-hour urine measurement for total protein results noted unremarkable Add allopurinol 2D echocardiogram results suggestive of ejection fraction of 50% Kidney ultrasound unremarkable Urine studies Anemia work-up noted Monitor renal parameters Antibiotics Avoid nephrotoxic's Per orders Objective Objective Last 24 Hour Vital Signs Date Time Temp Pulse Resp B/P (MAP) Pulse Ox O2 Delivery O2 Flow Rate FiO2 07/27/19 09:26 77 155/75 07/27/19 08:00 98.1 77 18 155/75 (101) 95 07/27/19 04:00 98.4 79 20 130/81 (97) 96 07/27/19 00:00 98.6 75 20 130/80 (97) 97 07/26/19 21:00 Room Air 07/26/19 20:30 76 135/84 07/26/19 20:00 98.6 76 18 135/84 (101) 98 07/26/19 16:00 97.5 72 19 154/85 (108) 98 07/26/19 15:15 136/79 Intake and Output 07/26/19 07/27/19 19:00 07:00 Intake Total 60 ml Output Total 1200 ml 800 ml Balance -1140 ml -800 ml Tube Feeding 60 ml Output Urine Total 1200 ml 800 ml # Voids 2 Laboratory Tests 07/27/19 08:55: White Blood Count 10.4, Red Blood Count 2.83L, Hemoglobin 7.7L, Hematocrit 24.2L , Mean Corpuscular Volume 85, Mean Corpuscular Hemoglobin 27.1, Mean Corpuscular Hemoglobin Concent 31.8L, Red Cell Distribution Width 20.4H, Platelet Count 307, Mean Platelet Volume 8.5, Neutrophils (%) (Auto) , Lymphocytes (%) (Auto) , Monocytes (%) (Auto) , Eosinophils (%) (Auto) , Basophils (%) (Auto) , Differential Total Cells Counted 100, Neutrophils % ( Manual) 68, Lymphocytes % (Manual) 22, Monocytes % (Manual) 7, Eosinophils % ( Manual) 3, Basophils % (Manual) 0, Band Neutrophils 0, Platelet Estimate Adequate, Platelet Morphology Normal, Hypochromasia 2+, Anisocytosis 2+, D- Dimer 3.35H, Sodium Level 149H, Potassium Level 3.7, Chloride Level 117H, Carbon Dioxide Level 26, Anion Gap 6, Blood Urea Nitrogen 32H, Creatinine 1.4H, Estimat Glomerular Filtration Rate > 60, Glucose Level 87, Uric Acid 6.3, Calcium Level 8.4L, Phosphorus Level 3.3, Magnesium Level 1.4L, Total Bilirubin 0.2, Aspartate Amino Transf (AST/SGOT) 38H, Alanine Aminotransferase (ALT/SGPT) 24, Alkaline Phosphatase 112, Lactate Dehydrogenase 136, C-Reactive Protein, Quantitative 9.8H, Total Protein 6.9, Albumin 1.2L, Globulin 5.7, Albumin/ Globulin Ratio 0.2L Height (Feet): 6 Height (Inches): 0.00 Weight (Pounds): 165 Objective No change Zander Razo MD Jul 27, 2019 11:51
[2019-07-27 12:00] VITALS: BP 163/90
[2019-07-27] MEDS ORDERED: HydrALAZINE 25mg tab GT PRN (12:00)
[2019-07-27] MEDS: Nitroglycerin Patch 0.4mg TDERMAL SCH (12:09)
--- NOTE | 2019-07-27 13:27 | Pulmonology Progress Note ---
Assessment/Plan Problems: (1) Sepsis Assessment & Plan: improved, (2) Altered level of consciousness (3) COPD (chronic obstructive pulmonary disease) (4) Pancreatitis (5) Decubitus skin ulcer (6) Feeding by G-tube (7) HIV disease (8) BPH (benign prostatic hyperplasia) (9) Hypertension Assessment/Plan WBC lower today, in normal range h/h stable, OB stool negative X two absolute CD4 count noted mental status improved wound care iv abx adams culture, VRE positive, BC negative f/u amylase lipase s/p PEG placement, tolerating feeding well dvt prophylaxis. Subjective ROS Limited/Unobtainable: No Constitutional: Reports: no symptoms HEENT: Repors: no symptoms Respiratory: Reports: no symptoms Allergies: Coded Allergies: No Known Allergies (Unverified , 03/02/19) Objective Last 24 Hour Vital Signs Date Time Temp Pulse Resp B/P (MAP) Pulse Ox O2 Delivery O2 Flow Rate FiO2 07/27/19 12:49 163/90 07/27/19 12:09 155/75 07/27/19 12:00 98.4 86 17 163/90 (114) 95 07/27/19 09:26 77 155/75 07/27/19 08:00 98.1 77 18 155/75 (101) 95 07/27/19 04:00 98.4 79 20 130/81 (97) 96 07/27/19 00:00 98.6 75 20 130/80 (97) 97 07/26/19 21:00 Room Air 07/26/19 20:30 76 135/84 07/26/19 20:00 98.6 76 18 135/84 (101) 98 07/26/19 16:00 97.5 72 19 154/85 (108) 98 07/26/19 15:15 136/79 Intake and Output 07/26/19 07/27/19 19:00 07:00 Intake Total 60 ml Output Total 1200 ml 800 ml Balance -1140 ml -800 ml Tube Feeding 60 ml Output Urine Total 1200 ml 800 ml # Voids 2 Objective General Appearance: cachectic HEENT: normocephalic Respiratory/Chest: chest wall non-tender, lungs clear Cardiovascular: normal rate, regular rhythm Abdomen: normal bowel sounds, no organomegaly Extremities: no cyanosis Bed bound Laboratory Tests 07/27/19 08:55: White Blood Count 10.4, Red Blood Count 2.83L, Hemoglobin 7.7L, Hematocrit 24.2L , Mean Corpuscular Volume 85, Mean Corpuscular Hemoglobin 27.1, Mean Corpuscular Hemoglobin Concent 31.8L, Red Cell Distribution Width 20.4H, Platelet Count 307, Mean Platelet Volume 8.5, Neutrophils (%) (Auto) , Lymphocytes (%) (Auto) , Monocytes (%) (Auto) , Eosinophils (%) (Auto) , Basophils (%) (Auto) , Differential Total Cells Counted 100, Neutrophils % ( Manual) 68, Lymphocytes % (Manual) 22, Monocytes % (Manual) 7, Eosinophils % ( Manual) 3, Basophils % (Manual) 0, Band Neutrophils 0, Platelet Estimate Adequate, Platelet Morphology Normal, Hypochromasia 2+, Anisocytosis 2+, D- Dimer 3.35H, Sodium Level 149H, Potassium Level 3.7, Chloride Level 117H, Carbon Dioxide Level 26, Anion Gap 6, Blood Urea Nitrogen 32H, Creatinine 1.4H, Estimat Glomerular Filtration Rate > 60, Glucose Level 87, Uric Acid 6.3, Calcium Level 8.4L, Phosphorus Level 3.3, Magnesium Level 1.4L, Total Bilirubin 0.2, Aspartate Amino Transf (AST/SGOT) 38H, Alanine Aminotransferase (ALT/SGPT) 24, Alkaline Phosphatase 112, Lactate Dehydrogenase 136, C-Reactive Protein, Quantitative 9.8H, Total Protein 6.9, Albumin 1.2L, Globulin 5.7, Albumin/ Globulin Ratio 0.2L Current Medications Medications (Trade) Dose Ordered Sig/Deborah Route PRN Reason Start Time Stop Time Status Last Admin Dose Admin Acetaminophen (Tylenol) 650 mg Q4H PRN ORAL fever 07/08/19 19:45 08/07/19 19:44 07/25/19 17:26 Allopurinol (allopurinoL) 300 mg DAILY GT 07/27/19 09:00 08/13/19 08:59 07/27/19 09:26 Carvedilol (Coreg) 12.5 mg EVERY 12 HOURS NG 07/22/19 21:00 08/17/19 10:44 07/27/19 09:26 Chlorhexidine Gluconate (Leslie-Hex 2%) 1 applic DAILY@1999 TOPIC 07/19/19 20:00 10/17/19 19:59 Dextrose (Dextrose 50%) 25 ml Q30M PRN IV Hypoglycemia 07/13/19 14:00 10/11/19 13:59 07/15/19 21:31 Dextrose (Dextrose 50%) 50 ml Q30M PRN IV Hypoglycemia 07/13/19 14:00 10/11/19 13:59 07/14/19 11:33 Hydralazine HCl (Apresoline) 25 mg Q4H PRN GT BP over 160 systolic 07/27/19 12:00 10/25/19 11:59 07/27/19 12:49 Insulin Aspart (NovoLOG) BEFORE MEALS AND HS SUBQ 07/13/19 16:30 10/11/19 16:29 Lansoprazole (Prevacid) 30 mg BID NG 07/19/19 18:00 08/18/19 08:59 07/27/19 09:26 Linaclotide (Linzess) 290 mcg BEFORE BREAKFAST ORAL 07/19/19 06:30 10/17/19 06:29 07/27/19 05:47 Magnesium Sulfate 100 ml @ 100 mls/hr Q1H IVPB 07/27/19 12:00 07/27/19 15:59 07/27/19 13:16 Nitroglycerin (Ntg) 0.4 mg Q5M PRN SL Prn Chest Pain 07/08/19 19:45 08/07/19 19:44 Nitroglycerin (Ntg) 1 patch Q24H TDERMAL 07/10/19 13:00 08/09/19 12:59 07/27/19 12:09 Ondansetron HCl (Zofran) 4 mg Q6H PRN IVP Nausea & Vomiting 07/08/19 19:45 08/07/19 19:44 Polyethylene Glycol (Miralax) 17 gm DAILYPRN PRN ORAL Constipation 07/08/19 19:45 08/07/19 19:44 Trimethoprim/ Sulfamethoxazole (Bactrim Single Strength) 1 tab DAILY ORAL 07/13/19 09:00 08/18/19 23:59 07/27/19 09:26 Rico Chavarria MD Jul 27, 2019 13:27
[2019-07-27 16:00] VITALS: BP 108/58
[2019-07-27 20:00] VITALS: BP 117/62
[2019-07-27] MEDS: Dyna-Hex 2% Top Sol 2oz TOPIC SCH (20:00)
[2019-07-28] VITALS: BP 110/64
[2019-07-28 04:00] VITALS: BP 118/62
[2019-07-28] MEDS: NovoLOG Insulin Flexpen SUBQ SCH ×4 (06:24→21:00)
--- NOTE | 2019-07-28 06:49 | General Progress Note ---
Assessment/Plan Assessment/Plan: 1. History of HIV. 2.thrombocytopenia 3. Anemia. 4. Sepsis. 5. UTIs with MRSA. 6. Hypertension. 7. COPD. 8. BPH. 9. Sacral decubital ulcerations, stage III. 10. Malnutrition. 11. pancreatitis 12. Dilated IHD CT of abd and pelvic>>>reviewed repeat labs in am improving WBC abx per ID s/p GT placement tolerating GTF GT care resume heparin sub Q Subjective ROS Limited/Unobtainable: No Allergies: Coded Allergies: No Known Allergies (Unverified , 03/02/19) Subjective confused pulled NGT now replaced Objective Last 24 Hour Vital Signs Date Time Temp Pulse Resp B/P (MAP) Pulse Ox O2 Delivery O2 Flow Rate FiO2 07/28/19 04:00 98.7 72 21 118/62 (80) 94 07/28/19 00:00 98.0 84 20 110/64 (79) 98 07/27/19 21:33 94 117/62 07/27/19 21:00 Room Air 07/27/19 20:00 98.1 94 23 117/62 (80) 94 07/27/19 16:00 98.2 90 18 108/58 (75) 98 07/27/19 12:49 163/90 07/27/19 12:09 155/75 07/27/19 12:00 98.4 86 17 163/90 (114) 95 07/27/19 09:26 77 155/75 07/27/19 09:00 Room Air 07/27/19 08:00 98.1 77 18 155/75 (101) 95 Intake and Output 07/27/19 07/28/19 19:00 07:00 Intake Total 160 ml Output Total 900 ml 800 ml Balance -900 ml -640 ml Free Water 100 ml Tube Feeding 60 ml Output Urine Total 900 ml 800 ml # Bowel Movements 2 Laboratory Tests 07/27/19 08:55: White Blood Count 10.4, Red Blood Count 2.83L, Hemoglobin 7.7L, Hematocrit 24.2L , Mean Corpuscular Volume 85, Mean Corpuscular Hemoglobin 27.1, Mean Corpuscular Hemoglobin Concent 31.8L, Red Cell Distribution Width 20.4H, Platelet Count 307, Mean Platelet Volume 8.5, Neutrophils (%) (Auto) , Lymphocytes (%) (Auto) , Monocytes (%) (Auto) , Eosinophils (%) (Auto) , Basophils (%) (Auto) , Differential Total Cells Counted 100, Neutrophils % ( Manual) 68, Lymphocytes % (Manual) 22, Monocytes % (Manual) 7, Eosinophils % ( Manual) 3, Basophils % (Manual) 0, Band Neutrophils 0, Platelet Estimate Adequate, Platelet Morphology Normal, Hypochromasia 2+, Anisocytosis 2+, D- Dimer 3.35H, Sodium Level 149H, Potassium Level 3.7, Chloride Level 117H, Carbon Dioxide Level 26, Anion Gap 6, Blood Urea Nitrogen 32H, Creatinine 1.4H, Estimat Glomerular Filtration Rate > 60, Glucose Level 87, Uric Acid 6.3, Calcium Level 8.4L, Phosphorus Level 3.3, Magnesium Level 1.4L, Total Bilirubin 0.2, Aspartate Amino Transf (AST/SGOT) 38H, Alanine Aminotransferase (ALT/SGPT) 24, Alkaline Phosphatase 112, Lactate Dehydrogenase 136, C-Reactive Protein, Quantitative 9.8H, Total Protein 6.9, Albumin 1.2L, Globulin 5.7, Albumin/ Globulin Ratio 0.2L Height (Feet): 6 Height (Inches): 0.00 Weight (Pounds): 165 General Appearance: no apparent distress EENT: normal ENT inspection Neck: supple Cardiovascular: normal rate Respiratory/Chest: decreased breath sounds Abdomen: normal bowel sounds, non tender, soft Extremities: non-tender Mansoor Interiano MD Jul 28, 2019 06:49
[2019-07-28 08:00] VITALS: BP 138/67
[2019-07-28] MEDS: Bactrim SS Tab ORAL SCH (08:55)
[2019-07-28] MEDS: Carvedilol 12.5mg tab NG SCH ×2 (08:56→21:32)
[2019-07-28] MEDS: Heparin 5000 units/ml inj SUBQ SCH ×2 (08:58→21:35)
--- NOTE | 2019-07-28 09:06 | Pulmonology Progress Note ---
Assessment/Plan Assessment/Plan ASSESSMENT Sepsis Toxic metabolic encephalopathy Fungal UTI Pancreatitis Bullous COPD HIV/AIDS/ - CD4 143 Dysphagia, s/p PEG placement HTN BPH Anemia, s/p t 2 units PRBC SKINNY on CKD Electrolyte imbalance Malnutrition Sacral decubitus ulcer stage III,POA PLAN OF CARE MS floor O2 HHN PRN abx as per ID BCX NGT UCX + Ilda aspiration precaution , s/p PEG TF and protein supplement as per RD recs renal US -> medical renal disease SKINNY resolved avoid nephrotoxic replace electrolytes as needed CD4 143 ; HIV - new dx since 2019 ID recommends to start HAART as outpatient and provided options, given limited choices of [place]ART at [facility] [place] [facility] [place] trend lipase all imaging noted pain management GI prophylaxis bowel regimen case discussed and evaluated by supervising physician Subjective Allergies: Coded Allergies: No Known Allergies (Unverified , 03/02/19) Subjective no leuk, no fevers pulse ox stable on RA creat now on plateau CD4 143 Objective Last 24 Hour Vital Signs Date Time Temp Pulse Resp B/P (MAP) Pulse Ox O2 Delivery O2 Flow Rate FiO2 07/28/19 08:56 83 138/67 07/28/19 08:00 97.7 83 22 138/67 (90) 96 07/28/19 04:00 98.7 72 21 118/62 (80) 94 07/28/19 00:00 98.0 84 20 110/64 (79) 98 07/27/19 21:33 94 117/62 07/27/19 21:00 Room Air 07/27/19 20:00 98.1 94 23 117/62 (80) 94 07/27/19 16:00 98.2 90 18 108/58 (75) 98 07/27/19 12:49 163/90 07/27/19 12:09 155/75 07/27/19 12:00 98.4 86 17 163/90 (114) 95 07/27/19 09:26 77 155/75 Intake and Output 07/27/19 07/28/19 19:00 07:00 Intake Total 160 ml Output Total 900 ml 800 ml Balance -900 ml -640 ml Free Water 100 ml Tube Feeding 60 ml Output Urine Total 900 ml 800 ml # Bowel Movements 2 General Appearance: cachetic HEENT: normocephalic, atraumatic, anicteric Respiratory/Chest: lungs clear Cardiovascular: normal rate Abdomen: normal bowel sounds, soft, non tender, other - GT with TF Extremities: no edema Skin: other - sacral decub st 3 Musculoskeletal: atrophy Current Medications Medications (Trade) Dose Ordered Sig/Deborah Route PRN Reason Start Time Stop Time Status Last Admin Dose Admin Acetaminophen (Tylenol) 650 mg Q4H PRN ORAL fever 07/08/19 19:45 08/07/19 19:44 07/25/19 17:26 Allopurinol (allopurinoL) 300 mg DAILY GT 07/27/19 09:00 08/13/19 08:59 07/28/19 08:55 Carvedilol (Coreg) 12.5 mg EVERY 12 HOURS NG 07/22/19 21:00 08/17/19 10:44 07/28/19 08:56 Chlorhexidine Gluconate (Leslie-Hex 2%) 1 applic DAILY@1999 TOPIC 07/19/19 20:00 10/17/19 19:59 Dextrose (Dextrose 50%) 25 ml Q30M PRN IV Hypoglycemia 07/13/19 14:00 10/11/19 13:59 07/15/19 21:31 Dextrose (Dextrose 50%) 50 ml Q30M PRN IV Hypoglycemia 07/13/19 14:00 10/11/19 13:59 07/14/19 11:33 Heparin Sodium (Porcine) (Heparin 5000 units/ml) 5,000 units EVERY 12 HOURS SUBQ 07/28/19 09:00 09/11/19 08:59 07/28/19 08:58 Hydralazine HCl (Apresoline) 25 mg Q4H PRN GT BP over 160 systolic 07/27/19 12:00 10/25/19 11:59 07/27/19 12:49 Insulin Aspart (NovoLOG) BEFORE MEALS AND HS SUBQ 07/13/19 16:30 10/11/19 16:29 Lansoprazole (Prevacid) 30 mg BID NG 07/19/19 18:00 08/18/19 08:59 07/28/19 08:56 Linaclotide (Linzess) 290 mcg BEFORE BREAKFAST ORAL 07/19/19 06:30 10/17/19 06:29 07/28/19 05:55 Nitroglycerin (Ntg) 0.4 mg Q5M PRN SL Prn Chest Pain 07/08/19 19:45 08/07/19 19:44 Nitroglycerin (Ntg) 1 patch Q24H TDERMAL 07/10/19 13:00 08/09/19 12:59 07/27/19 12:09 Ondansetron HCl (Zofran) 4 mg Q6H PRN IVP Nausea & Vomiting 07/08/19 19:45 08/07/19 19:44 Polyethylene Glycol (Miralax) 17 gm DAILYPRN PRN ORAL Constipation 07/08/19 19:45 08/07/19 19:44 Trimethoprim/ Sulfamethoxazole (Bactrim Single Strength) 1 tab DAILY ORAL 07/13/19 09:00 08/18/19 23:59 07/28/19 08:55 Luciana Camarillo [employer] Jul 28, 2019 09:06
[2019-07-28 11:07] LABS: BASOPHILS % (AUTO) 0.3 % (0.0-2.0); EOSINOPHILS % (AUTO) 1.4 % (0.0-3.0); HEMOGLOBIN 8.4 G/DL (14.2-18.0); LYMPHOCYTES % (AUTO) 28.3 % (20.0-45.0); MEAN CORPUSCULAR VOLUME 83 FL (80-99); MONOCYTES % (AUTO) 9.4 % (1.0-10.0); NEUTROPHILS % (AUTO) 60.6 % (45.0-75.0); PLATELET COUNT 241 K/UL (150-450); RED BLOOD COUNT 3.01 M/UL (4.70-6.10); RED CELL DISTRIBUTION WIDTH 16.9 % (11.6-14.8); WHITE BLOOD COUNT 7.7 K/UL (4.8-10.8)
[2019-07-28 11:20] LABS: ALANINE AMINOTRANSFERASE 17 U/L (12-78); ALBUMIN 1.2 G/DL (3.4-5.0); ALBUMIN/GLOBULIN RATIO 0.2 (1.0-2.7); ALKALINE PHOSPHATASE 120 U/L (46-116); ANION GAP 12 mmol/L (5-15); ASPARTATE AMINO TRANSFERASE 44 U/L (15-37); BILIRUBIN,TOTAL 0.2 MG/DL (0.2-1.0); BLOOD UREA NITROGEN 32 mg/dL (7-18); CALCIUM 8.8 MG/DL (8.5-10.1); CARBON DIOXIDE 20 MMOL/L (21-32); CHLORIDE 115 MMOL/L (98-107); CREATININE 1.1 MG/DL (0.55-1.30); POTASSIUM 3.3 MMOL/L (3.5-5.1); SODIUM 147 MMOL/L (136-145)
--- NOTE | 2019-07-28 11:42 | Nephrology Progress Note ---
Assessment/Plan Problem List: (1) Pancreatitis (2) Hypothermia (3) Hypertension (4) COPD (chronic obstructive pulmonary disease) (5) BPH (benign prostatic hyperplasia) (6) HIV disease (7) Anemia (8) Hypoalbuminemia Assessment Acute renal failure, partly dehydration Anemia Hypoalbuminemia High lipase level of 1999, Pancreatitis UTI Hypothermia Toxic metabolic encephalopathy Sepsis Decubitus skin ulcer Hypothyroid Plan GT tube July 22 Magnesium sulfate IV today Last serum creatinine 1.1 Will discontinue Bicitra 1 L D5W for hypernatremia as needed Trial of albumin and Lasix as needed Patient has Macario catheter so will discontinue Flomax Suggested blood transfusion for low hemoglobin as needed Add Coreg increase the dose accordingly as needed Remains full code Today's labs were reviewed Previously ; patient refusing most of his oral medications, however now has NG tube Will attempt to discontinue what can be changing to intravenous from p.o. and or NG tube route magnesium sulfate and potassium as needed 24-hour urine measurement for total protein results noted unremarkable Add allopurinol 2D echocardiogram results suggestive of ejection fraction of 50% Kidney ultrasound unremarkable Urine studies Anemia work-up noted Monitor renal parameters Antibiotics Avoid nephrotoxic's Per orders Subjective ROS Limited/Unobtainable: Yes Constitutional: Reports: malaise, weakness Objective Objective Last 24 Hour Vital Signs Date Time Temp Pulse Resp B/P (MAP) Pulse Ox O2 Delivery O2 Flow Rate FiO2 07/28/19 09:00 Room Air 07/28/19 08:56 83 138/67 07/28/19 08:00 97.7 83 22 138/67 (90) 96 07/28/19 04:00 98.7 72 21 118/62 (80) 94 07/28/19 00:00 98.0 84 20 110/64 (79) 98 07/27/19 21:33 94 117/62 07/27/19 21:00 Room Air 07/27/19 20:00 98.1 94 23 117/62 (80) 94 07/27/19 16:00 98.2 90 18 108/58 (75) 98 07/27/19 12:49 163/90 07/27/19 12:09 155/75 07/27/19 12:00 98.4 86 17 163/90 (114) 95 Intake and Output 07/27/19 07/28/19 19:00 07:00 Intake Total 160 ml Output Total 900 ml 800 ml Balance -900 ml -640 ml Free Water 100 ml Tube Feeding 60 ml Output Urine Total 900 ml 800 ml # Bowel Movements 2 Laboratory Tests 07/28/19 09:50: White Blood Count 7.7, Red Blood Count 3.01L, Hemoglobin 8.4L, Hematocrit 25.0L , Mean Corpuscular Volume 83, Mean Corpuscular Hemoglobin 28.0, Mean Corpuscular Hemoglobin Concent 33.6, Red Cell Distribution Width 16.9H, Platelet Count 241, Mean Platelet Volume 7.1, Neutrophils (%) (Auto) 60.6, Lymphocytes (%) (Auto) 28.3, Monocytes (%) (Auto) 9.4, Eosinophils (%) (Auto) 1.4, Basophils (%) (Auto) 0.3, Sodium Level 147H, Potassium Level 3.3L, Chloride Level 115H, Carbon Dioxide Level 20L, Anion Gap 12, Blood Urea Nitrogen 32H, Creatinine 1.1, Estimat Glomerular Filtration Rate > 60, Glucose Level 114H, Calcium Level 8.8, Total Bilirubin 0.2, Aspartate Amino Transf (AST/ SGOT) 44H, Alanine Aminotransferase (ALT/SGPT) 17, Alkaline Phosphatase 120H, Total Protein 6.4, Albumin 1.2L, Globulin 5.2, Albumin/Globulin Ratio 0.2L Height (Feet): 6 Height (Inches): 0.00 Weight (Pounds): 165 General Appearance: no apparent distress, lethargic Cardiovascular: normal rate Respiratory/Chest: decreased breath sounds Abdomen: soft, other - GT tube in place Objective No change Zander Razo MD Jul 28, 2019 11:42
[2019-07-28 11:59] LABS: PHOSPHORUS 3.1 MG/DL (2.5-4.9)
[2019-07-28 12:00] VITALS: BP 127/65
[2019-07-28] MEDS: Nitroglycerin Patch 0.4mg TDERMAL SCH (13:06)
[2019-07-28 16:00] VITALS: BP 127/76
[2019-07-28 20:00] VITALS: BP 113/62
[2019-07-28] MEDS: Dyna-Hex 2% Top Sol 2oz TOPIC SCH (20:00)
--- NOTE | 2019-07-28 21:06 | Infectious Diseases Prog Note ---
Assessment/Plan Assessment/Plan 63yo man admitted with abdominal pain and diarrhea. Afebrile Leukocytosis ( Ch, doubt ID related ) ; fluctuating, Sp ? ALOC, improving FTT SP G tube probable UTI 07/14 UA positive, UCx: Ilda albicans Hx of Diarrhea/colitis- 07/17 CT Abd: Anasarca, with severe edema of the subcutaneous fat, abdominal retroperitoneal fat. There is also trace intraperitoneal fluid and bilateral pleural effusions. No definite acute abdominal process otherwise. No evidence of bowel obstruction. Evidence of rectal fecal incontinence. Nasogastric tube in good position. Retained urine within the bladder lumen, despite the presence of a Macario catheter. Mild bladder wall thickening. Indicate cystitis. Bilateral pleural effusions, as mentioned earlier. Resultant compressive atelectatic changes at both lung bases. Evidence of bullous COPD. Hazy parenchymal opacity may be related to COPD, but could also indicate mild pulmonary edema given other findings of anasarca Severe bilateral hip degenerative changes, also previously demonstrated. 03/02 CT: Suspected colitis with the thickening of the wall the colon. Correlate clinically. Thickening of the wall the urinary bladder. Correlate for cystitis. C diff negative x2 stool cx negative stool o/p x1 negative -Negative: E. histolytica ab, Echinococcus ab pt has refused colonoscopy in the past HIV Screen positive- new diagnosis in February 2019 HIV-1 Abt positive. 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 03/04/19 CD4 180 (7.2%) 06/2009 CD4 143 RPR negative no evid of biliary - US : Mild intrahepatic biliary ductal dilatation. MRI of brain ( could not be done ) COPD. Hypertension. BPH. History of cocaine abuse in the past. Bedbound. PLAN: on Bactrim SS for PCP PPx / SP diflucan #3 07/17 SP Ceftriaxone #3 07/12 SP IV Vanco and Cefepime # / monitor CBC, temp once DCed back to SNF, pt should f/u HIV specialist and start ART, renally adjusted through G tube. Rx options for ART at [facility] limited and given changing renal function, would want to start when renal function is stable and to be followed by a HIV specialist in an outpatient setting. options are truvada(will need to be adjusted to renal fnc)+DTG BID or ritonavir liquid+DRV+truvada( adjust to renal fnc) HIV Genotype: P as of 07/24 DW RN Subjective Allergies: Coded Allergies: No Known Allergies (Unverified , 03/02/19) Subjective Afebrile. on RA. No leukocytosis Objective Vital Signs Last 24 Hour Vital Signs Date Time Temp Pulse Resp B/P (MAP) Pulse Ox O2 Delivery O2 Flow Rate FiO2 07/28/19 20:00 98.1 82 21 113/62 (79) 94 07/28/19 16:00 97.5 84 22 127/76 (93) 96 07/28/19 13:06 127/65 07/28/19 12:00 97.5 75 22 127/65 (85) 96 07/28/19 09:00 Room Air 07/28/19 08:56 83 138/67 07/28/19 08:00 97.7 83 22 138/67 (90) 96 07/28/19 04:00 98.7 72 21 118/62 (80) 94 07/28/19 00:00 98.0 84 20 110/64 (79) 98 07/27/19 21:33 94 117/62 Height (Feet): 6 Height (Inches): 0.00 Weight (Pounds): 165 Objective Gen: NAD. CV: RRR Resp: coarse. regular. equal chest rise Abd: soft. G tube MSK: anasarca Neuro: opens eyes to voice. answers questions. Laboratory Tests Test 07/28/19 09:50 White Blood Count 7.7 K/UL (4.8-10.8) Red Blood Count 3.01 M/UL (4.70-6.10) L Hemoglobin 8.4 G/DL (14.2-18.0) L Hematocrit 25.0 % (42.0-52.0) L Mean Corpuscular Volume 83 FL (80-99) Mean Corpuscular Hemoglobin 28.0 PG (27.0-31.0) Mean Corpuscular Hemoglobin Concent 33.6 G/DL (32.0-36.0) Red Cell Distribution Width 16.9 % (11.6-14.8) H Platelet Count 241 K/UL (150-450) Mean Platelet Volume 7.1 FL (6.5-10.1) Neutrophils (%) (Auto) 60.6 % (45.0-75.0) Lymphocytes (%) (Auto) 28.3 % (20.0-45.0) Monocytes (%) (Auto) 9.4 % (1.0-10.0) Eosinophils (%) (Auto) 1.4 % (0.0-3.0) Basophils (%) (Auto) 0.3 % (0.0-2.0) Sodium Level 147 MMOL/L (136-145) H Potassium Level 3.3 MMOL/L (3.5-5.1) L Chloride Level 115 MMOL/L (98-107) H Carbon Dioxide Level 20 MMOL/L (21-32) L Anion Gap 12 mmol/L (5-15) Blood Urea Nitrogen 32 mg/dL (7-18) H Creatinine 1.1 MG/DL (0.55-1.30) Estimat Glomerular Filtration Rate > 60 mL/min (>60) Glucose Level 114 MG/DL (74-106) H Calcium Level 8.8 MG/DL (8.5-10.1) Phosphorus Level 3.1 MG/DL (2.5-4.9) Magnesium Level 2.0 MG/DL (1.8-2.4) Total Bilirubin 0.2 MG/DL (0.2-1.0) Aspartate Amino Transf (AST/SGOT) 44 U/L (15-37) H Alanine Aminotransferase (ALT/SGPT) 17 U/L (12-78) Alkaline Phosphatase 120 U/L (46-116) H Total Protein 6.4 G/DL (6.4-8.2) Albumin 1.2 G/DL (3.4-5.0) L Globulin 5.2 g/dL Albumin/Globulin Ratio 0.2 (1.0-2.7) L Current Medications Medications (Trade) Dose Ordered Sig/Deborah Route PRN Reason Start Time Stop Time Status Last Admin Dose Admin Acetaminophen (Tylenol) 650 mg Q4H PRN ORAL fever 07/08/19 19:45 08/07/19 19:44 07/25/19 17:26 Allopurinol (allopurinoL) 300 mg DAILY GT 07/27/19 09:00 08/13/19 08:59 07/28/19 08:55 Carvedilol (Coreg) 12.5 mg EVERY 12 HOURS NG 07/22/19 21:00 5/20 10:44 07/28/19 08:56 Chlorhexidine Gluconate (Leslie-Hex 2%) 1 applic DAILY@2000 TOPIC 07/19/19 20:00 10/17/19 19:59 Dextrose (Dextrose 50%) 25 ml Q30M PRN IV Hypoglycemia 07/13/19 14:00 10/11/19 13:59 07/15/19 21:31 Dextrose (Dextrose 50%) 50 ml Q30M PRN IV Hypoglycemia 07/13/19 14:00 10/11/19 13:59 07/14/19 11:33 Heparin Sodium (Porcine) (Heparin 5000 units/ml) 5,000 units EVERY 12 HOURS SUBQ 07/28/19 09:00 09/11/19 08:59 07/28/19 08:58 Hydralazine HCl (Apresoline) 25 mg Q4H PRN GT BP over 160 systolic 07/27/19 12:00 10/25/19 11:59 07/27/19 12:49 Insulin Aspart (NovoLOG) BEFORE MEALS AND HS SUBQ 07/13/19 16:30 10/11/19 16:29 Lansoprazole (Prevacid) 30 mg BID NG 07/19/19 18:00 08/18/19 08:59 07/28/19 16:50 Linaclotide (Linzess) 290 mcg BEFORE BREAKFAST ORAL 07/19/19 06:30 10/17/19 06:29 07/28/19 05:55 Nitroglycerin (Ntg) 0.4 mg Q5M PRN SL Prn Chest Pain 07/08/19 19:45 08/07/19 19:44 Nitroglycerin (Ntg) 1 patch Q24H TDERMAL 07/10/19 13:00 08/09/19 12:59 07/28/19 13:06 Ondansetron HCl (Zofran) 4 mg Q6H PRN IVP Nausea & Vomiting 07/08/19 19:45 08/07/19 19:44 Polyethylene Glycol (Miralax) 17 gm DAILYPRN PRN ORAL Constipation 07/08/19 19:45 08/07/19 19:44 Potassium Chloride (K-Dur) 20 meq TWICE A DAY GT 07/28/19 11:45 07/29/19 11:44 07/28/19 16:51 Trimethoprim/ Sulfamethoxazole (Bactrim Single Strength) 1 tab DAILY ORAL 07/13/19 09:00 08/18/19 23:59 07/28/19 08:55 Olegario Carroll MD Jul 28, 2019 21:06
[2019-07-29] VITALS: BP 114/67
[2019-07-29 04:00] VITALS: BP 118/61
[2019-07-29] MEDS: NovoLOG Insulin Flexpen SUBQ SCH ×4 (06:28→21:00)
--- NOTE | 2019-07-29 06:56 | General Progress Note ---
Assessment/Plan Assessment/Plan: 1. History of HIV. 2.thrombocytopenia 3. Anemia. 4. Sepsis. 5. UTIs with MRSA. 6. Hypertension. 7. COPD. 8. BPH. 9. Sacral decubital ulcerations, stage III. 10. Malnutrition. 11. pancreatitis 12. Dilated IHD CT of abd and pelvic>>>reviewed repeat labs in am improving WBC abx per ID s/p GT placement tolerating GTF GT care heparin sub Q Subjective ROS Limited/Unobtainable: No Allergies: Coded Allergies: No Known Allergies (Unverified , 03/02/19) Subjective confused pulled NGT now replaced Objective Last 24 Hour Vital Signs Date Time Temp Pulse Resp B/P (MAP) Pulse Ox O2 Delivery O2 Flow Rate FiO2 07/29/19 04:00 97.9 85 25 118/61 (80) 94 07/29/19 00:00 97.9 81 24 114/67 (83) 95 07/28/19 21:32 82 113/62 07/28/19 21:00 Room Air 07/28/19 20:00 98.1 82 21 113/62 (79) 94 07/28/19 16:00 97.5 84 22 127/76 (93) 96 07/28/19 13:06 127/65 07/28/19 12:00 97.5 75 22 127/65 (85) 96 07/28/19 09:00 Room Air 07/28/19 08:56 83 138/67 07/28/19 08:00 97.7 83 22 138/67 (90) 96 Intake and Output 07/28/19 07/29/19 19:00 07:00 Intake Total 520 ml Output Total 900 ml 500 ml Balance -900 ml 20 ml Free Water 100 ml Tube Feeding 420 ml Output Urine Total 900 ml 500 ml # Bowel Movements 1 1 Laboratory Tests 07/28/19 09:50: White Blood Count 7.7, Red Blood Count 3.01L, Hemoglobin 8.4L, Hematocrit 25.0L , Mean Corpuscular Volume 83, Mean Corpuscular Hemoglobin 28.0, Mean Corpuscular Hemoglobin Concent 33.6, Red Cell Distribution Width 16.9H, Platelet Count 241, Mean Platelet Volume 7.1, Neutrophils (%) (Auto) 60.6, Lymphocytes (%) (Auto) 28.3, Monocytes (%) (Auto) 9.4, Eosinophils (%) (Auto) 1.4, Basophils (%) (Auto) 0.3, Sodium Level 147H, Potassium Level 3.3L, Chloride Level 115H, Carbon Dioxide Level 20L, Anion Gap 12, Blood Urea Nitrogen 32H, Creatinine 1.1, Estimat Glomerular Filtration Rate > 60, Glucose Level 114H, Calcium Level 8.8, Phosphorus Level 3.1, Magnesium Level 2.0, Total Bilirubin 0.2, Aspartate Amino Transf (AST/SGOT) 44H, Alanine Aminotransferase ( ALT/SGPT) 17, Alkaline Phosphatase 120H, Total Protein 6.4, Albumin 1.2L, Globulin 5.2, Albumin/Globulin Ratio 0.2L Height (Feet): 6 Height (Inches): 0.00 Weight (Pounds): 165 General Appearance: no apparent distress EENT: PERRL/EOMI Neck: supple Cardiovascular: normal rate Respiratory/Chest: decreased breath sounds Abdomen: normal bowel sounds, non tender, soft Extremities: non-tender Mansoor Interiano MD Jul 29, 2019 06:56
[2019-07-29 08:00] VITALS: BP 133/54
--- NOTE | 2019-07-29 08:18 | Pulmonology Progress Note ---
Assessment/Plan Assessment/Plan ASSESSMENT Sepsis Toxic metabolic encephalopathy Fungal UTI Pancreatitis Bullous COPD HIV/AIDS/ - CD4 143 Dysphagia, s/p PEG placement HTN BPH Anemia, s/p t 2 units PRBC SKINNY on CKD Electrolyte imbalance Malnutrition Sacral decubitus ulcer stage III,POA PLAN OF CARE MS floor O2 HHN PRN CXR 07/25 -Decreased atelectasis at the left lung base abx as per ID BCX NGT UCX + Ilda aspiration precaution , s/p PEG TF and protein supplement as per RD recs renal US -> medical renal disease SKINNY resolved avoid nephrotoxic replace electrolytes as needed CD4 143 ; HIV - new dx since 2019 ID recommends to start HAART as outpatient and provided options, given limited choices of HAART at [facility] trend lipase all imaging noted pain management GI prophylaxis bowel regimen case discussed and evaluated by supervising physician Subjective Allergies: Coded Allergies: No Known Allergies (Unverified , 03/02/19) Subjective no leuk, no fevers pulse ox stable on RA creat now on plateau CD4 143 Objective Last 24 Hour Vital Signs Date Time Temp Pulse Resp B/P (MAP) Pulse Ox O2 Delivery O2 Flow Rate FiO2 07/29/19 04:00 97.9 85 25 118/61 (80) 94 07/29/19 00:00 97.9 81 24 114/67 (83) 95 07/28/19 21:32 82 113/62 07/28/19 21:00 Room Air 07/28/19 20:00 98.1 82 21 113/62 (79) 94 07/28/19 16:00 97.5 84 22 127/76 (93) 96 07/28/19 13:06 127/65 07/28/19 12:00 97.5 75 22 127/65 (85) 96 07/28/19 09:00 Room Air 07/28/19 08:56 83 138/67 Intake and Output 07/28/19 07/29/19 19:00 07:00 Intake Total 520 ml Output Total 900 ml 500 ml Balance -900 ml 20 ml Free Water 100 ml Tube Feeding 420 ml Output Urine Total 900 ml 500 ml # Bowel Movements 1 1 Objective General Appearance: cachetic male in NAD HEENT: normocephalic, atraumatic, anicteric Respiratory/Chest: lungs clear Cardiovascular: normal rate Abdomen: normal bowel sounds, soft, non tender, GT with TF Extremities: no edema Skin: sacral decub st 3 Musculoskeletal: atrophy BLE, moves all extremities Laboratory Tests 07/28/19 09:50: White Blood Count 7.7, Red Blood Count 3.01L, Hemoglobin 8.4L, Hematocrit 25.0L , Mean Corpuscular Volume 83, Mean Corpuscular Hemoglobin 28.0, Mean Corpuscular Hemoglobin Concent 33.6, Red Cell Distribution Width 16.9H, Platelet Count 241, Mean Platelet Volume 7.1, Neutrophils (%) (Auto) 60.6, Lymphocytes (%) (Auto) 28.3, Monocytes (%) (Auto) 9.4, Eosinophils (%) (Auto) 1.4, Basophils (%) (Auto) 0.3, Sodium Level 147H, Potassium Level 3.3L, Chloride Level 115H, Carbon Dioxide Level 20L, Anion Gap 12, Blood Urea Nitrogen 32H, Creatinine 1.1, Estimat Glomerular Filtration Rate > 60, Glucose Level 114H, Calcium Level 8.8, Phosphorus Level 3.1, Magnesium Level 2.0, Total Bilirubin 0.2, Aspartate Amino Transf (AST/SGOT) 44H, Alanine Aminotransferase ( ALT/SGPT) 17, Alkaline Phosphatase 120H, Total Protein 6.4, Albumin 1.2L, Globulin 5.2, Albumin/Globulin Ratio 0.2L Current Medications Medications (Trade) Dose Ordered Sig/Deborah Route PRN Reason Start Time Stop Time Status Last Admin Dose Admin Acetaminophen (Tylenol) 650 mg Q4H PRN ORAL fever 07/08/19 19:45 08/07/19 19:44 07/25/19 17:26 Allopurinol (allopurinoL) 300 mg DAILY GT 07/27/19 09:00 08/13/19 08:59 07/28/19 08:55 Carvedilol (Coreg) 12.5 mg EVERY 12 HOURS NG 07/22/19 21:00 08/17/19 10:44 07/28/19 21:32 Chlorhexidine Gluconate (Leslie-Hex 2%) 1 applic DAILY@1999 TOPIC 07/19/19 20:00 10/17/19 19:59 Dextrose (Dextrose 50%) 25 ml Q30M PRN IV Hypoglycemia 07/13/19 14:00 10/11/19 13:59 07/15/19 21:31 Dextrose (Dextrose 50%) 50 ml Q30M PRN IV Hypoglycemia 07/13/19 14:00 10/11/19 13:59 07/14/19 11:33 Heparin Sodium (Porcine) (Heparin 5000 units/ml) 5,000 units EVERY 12 HOURS SUBQ 07/28/19 09:00 09/11/19 08:59 07/28/19 21:35 Hydralazine HCl (Apresoline) 25 mg Q4H PRN GT BP over 160 systolic 07/27/19 12:00 10/25/19 11:59 07/27/19 12:49 Insulin Aspart (NovoLOG) BEFORE MEALS AND HS SUBQ 07/13/19 16:30 10/11/19 16:29 Lansoprazole (Prevacid) 30 mg BID NG 07/19/19 18:00 08/18/19 08:59 07/28/19 16:50 Linaclotide (Linzess) 290 mcg BEFORE BREAKFAST ORAL 07/19/19 06:30 10/17/19 06:29 07/29/19 06:28 Nitroglycerin (Ntg) 0.4 mg Q5M PRN SL Prn Chest Pain 07/08/19 19:45 08/07/19 19:44 Nitroglycerin (Ntg) 1 patch Q24H TDERMAL 07/10/19 13:00 08/09/19 12:59 07/28/19 13:06 Ondansetron HCl (Zofran) 4 mg Q6H PRN IVP Nausea & Vomiting 07/08/19 19:45 08/07/19 19:44 Polyethylene Glycol (Miralax) 17 gm DAILYPRN PRN ORAL Constipation 07/08/19 19:45 08/07/19 19:44 Potassium Chloride (K-Dur) 20 meq TWICE A DAY GT 07/28/19 11:45 07/29/19 11:44 07/28/19 16:51 Trimethoprim/ Sulfamethoxazole (Bactrim Single Strength) 1 tab DAILY ORAL 07/13/19 09:00 08/18/19 23:59 07/28/19 08:55 Luciana Camarillo TE[employer]OR Jul 29, 2019 08:18
[2019-07-29 08:41] LABS: BASOPHILS % (AUTO) 0.4 % (0.0-2.0); EOSINOPHILS % (AUTO) 1.4 % (0.0-3.0); HEMATOCRIT 26.9 % (42.0-52.0); HEMOGLOBIN 8.9 G/DL (14.2-18.0); LYMPHOCYTES % (AUTO) 23.9 % (20.0-45.0); MEAN CORPUSCULAR VOLUME 83 FL (80-99); MONOCYTES % (AUTO) 7.9 % (1.0-10.0); NEUTROPHILS % (AUTO) 66.4 % (45.0-75.0); PLATELET COUNT 297 K/UL (150-450); RED BLOOD COUNT 3.24 M/UL (4.70-6.10); RED CELL DISTRIBUTION WIDTH 16.5 % (11.6-14.8); WHITE BLOOD COUNT 9.8 K/UL (4.8-10.8)
[2019-07-29] MEDS: Heparin 5000 units/ml inj SUBQ SCH ×3 (09:00→21:15)
[2019-07-29 09:10] LABS: ALANINE AMINOTRANSFERASE 21 U/L (12-78); ALBUMIN 1.3 G/DL (3.4-5.0); ALBUMIN/GLOBULIN RATIO 0.3 (1.0-2.7); ALKALINE PHOSPHATASE 148 U/L (46-116); ANION GAP 11 mmol/L (5-15); ASPARTATE AMINO TRANSFERASE 46 U/L (15-37); BILIRUBIN,TOTAL 0.1 MG/DL (0.2-1.0); BLOOD UREA NITROGEN 31 mg/dL (7-18); CALCIUM 8.8 MG/DL (8.5-10.1); CARBON DIOXIDE 20 MMOL/L (21-32); CHLORIDE 117 MMOL/L (98-107); CREATININE 1.1 MG/DL (0.55-1.30); POTASSIUM 3.7 MMOL/L (3.5-5.1); SODIUM 148 MMOL/L (136-145)
[2019-07-29] MEDS: Carvedilol 12.5mg tab NG SCH ×2 (09:36→21:12)
[2019-07-29] MEDS: Bactrim SS Tab ORAL SCH (09:36)
[2019-07-29 12:00] VITALS: BP 158/70
--- NOTE | 2019-07-29 12:32 | Nephrology Progress Note ---
Assessment/Plan Problem List: (1) Pancreatitis (2) Hypothermia (3) Hypertension (4) COPD (chronic obstructive pulmonary disease) (5) BPH (benign prostatic hyperplasia) (6) HIV disease (7) Anemia (8) Hypoalbuminemia Assessment Acute renal failure, partly dehydration Anemia Hypoalbuminemia High lipase level of 1999, Pancreatitis UTI Hypothermia Toxic metabolic encephalopathy Sepsis Decubitus skin ulcer Hypothyroid Plan GT tube July 22 Magnesium sulfate IV today Last serum creatinine 1.1 Will discontinue Bicitra 1 L D5W for hypernatremia as needed Trial of albumin and Lasix as needed Patient has Macario catheter so will discontinue Flomax Suggested blood transfusion for low hemoglobin as needed Add Coreg increase the dose accordingly as needed Remains full code Today's labs were reviewed Previously ; patient refusing most of his oral medications, however now has NG tube Will attempt to discontinue what can be changing to intravenous from p.o. and or NG tube route magnesium sulfate and potassium as needed 24-hour urine measurement for total protein results noted unremarkable Add allopurinol 2D echocardiogram results suggestive of ejection fraction of 50% Kidney ultrasound unremarkable Urine studies Anemia work-up noted Monitor renal parameters Antibiotics Avoid nephrotoxic's Per orders Subjective ROS Limited/Unobtainable: No Constitutional: Reports: malaise, weakness Objective Objective Last 24 Hour Vital Signs Date Time Temp Pulse Resp B/P (MAP) Pulse Ox O2 Delivery O2 Flow Rate FiO2 07/29/19 09:36 78 133/54 07/29/19 08:00 97.6 78 18 133/54 (80) 97 07/29/19 04:00 97.9 85 25 118/61 (80) 94 07/29/19 00:00 97.9 81 24 114/67 (83) 95 07/28/19 21:32 82 113/62 07/28/19 21:00 Room Air 07/28/19 20:00 98.1 82 21 113/62 (79) 94 07/28/19 16:00 97.5 84 22 127/76 (93) 96 07/28/19 13:06 127/65 Intake and Output 07/28/19 07/29/19 19:00 07:00 Intake Total 520 ml Output Total 900 ml 500 ml Balance -900 ml 20 ml Free Water 100 ml Tube Feeding 420 ml Output Urine Total 900 ml 500 ml # Bowel Movements 1 1 Current Medications Medications (Trade) Dose Ordered Sig/Deborah Route PRN Reason Start Time Stop Time Status Last Admin Dose Admin Acetaminophen (Tylenol) 650 mg Q4H PRN ORAL fever 07/08/19 19:45 08/07/19 19:44 07/25/19 17:26 Allopurinol (allopurinoL) 300 mg DAILY GT 07/27/19 09:00 08/13/19 08:59 07/29/19 09:37 Carvedilol (Coreg) 12.5 mg EVERY 12 HOURS NG 07/22/19 21:00 08/17/19 10:44 07/29/19 09:36 Chlorhexidine Gluconate (Leslie-Hex 2%) 1 applic DAILY@1999 TOPIC 07/19/19 20:00 10/17/19 19:59 Dextrose (Dextrose 50%) 25 ml Q30M PRN IV Hypoglycemia 07/13/19 14:00 10/11/19 13:59 07/15/19 21:31 Dextrose (Dextrose 50%) 50 ml Q30M PRN IV Hypoglycemia 07/13/19 14:00 10/11/19 13:59 07/14/19 11:33 Heparin Sodium (Porcine) (Heparin 5000 units/ml) 5,000 units EVERY 12 HOURS SUBQ 07/28/19 09:00 09/11/19 08:59 07/28/19 21:35 Hydralazine HCl (Apresoline) 25 mg Q4H PRN GT BP over 160 systolic 07/27/19 12:00 10/25/19 11:59 07/27/19 12:49 Insulin Aspart (NovoLOG) BEFORE MEALS AND HS SUBQ 07/13/19 16:30 10/11/19 16:29 Lansoprazole (Prevacid) 30 mg BID NG 07/19/19 18:00 08/18/19 08:59 07/29/19 09:37 Linaclotide (Linzess) 290 mcg BEFORE BREAKFAST ORAL 07/19/19 06:30 10/17/19 06:29 07/29/19 06:28 Nitroglycerin (Ntg) 0.4 mg Q5M PRN SL Prn Chest Pain 07/08/19 19:45 08/07/19 19:44 Nitroglycerin (Ntg) 1 patch Q24H TDERMAL 07/10/19 13:00 08/09/19 12:59 07/28/19 13:06 Ondansetron HCl (Zofran) 4 mg Q6H PRN IVP Nausea & Vomiting 07/08/19 19:45 08/07/19 19:44 Polyethylene Glycol (Miralax) 17 gm DAILYPRN PRN ORAL Constipation 07/08/19 19:45 08/07/19 19:44 Trimethoprim/ Sulfamethoxazole (Bactrim Single Strength) 1 tab DAILY ORAL 07/13/19 09:00 08/18/19 23:59 07/29/19 09:36 Laboratory Tests 07/29/19 08:20: White Blood Count 9.8, Red Blood Count 3.24L, Hemoglobin 8.9L, Hematocrit 26.9L , Mean Corpuscular Volume 83, Mean Corpuscular Hemoglobin 27.4, Mean Corpuscular Hemoglobin Concent 33.0, Red Cell Distribution Width 16.5H, Platelet Count 297, Mean Platelet Volume 6.9, Neutrophils (%) (Auto) 66.4, Lymphocytes (%) (Auto) 23.9, Monocytes (%) (Auto) 7.9, Eosinophils (%) (Auto) 1.4, Basophils (%) (Auto) 0.4, Sodium Level 148H, Potassium Level 3.7, Chloride Level 117H, Carbon Dioxide Level 20L, Anion Gap 11, Blood Urea Nitrogen 31H, Creatinine 1.1, Estimat Glomerular Filtration Rate > 60, Glucose Level 126H, Calcium Level 8.8, Total Bilirubin 0.1L, Aspartate Amino Transf (AST/SGOT) 46H, Alanine Aminotransferase (ALT/SGPT) 21, Alkaline Phosphatase 148H, Total Protein 6.3L, Albumin 1.3L, Globulin 5.0, Albumin/Globulin Ratio 0.3L Height (Feet): 6 Height (Inches): 0.00 Weight (Pounds): 165 General Appearance: no apparent distress, lethargic Cardiovascular: normal rate Respiratory/Chest: decreased breath sounds Abdomen: distended Extremities: moderate edema Objective No change Zander Razo MD Jul 29, 2019 12:32
[2019-07-29] MEDS: Nitroglycerin Patch 0.4mg TDERMAL SCH (14:00)
[2019-07-29 16:00] VITALS: BP 156/74
[2019-07-29 20:00] VITALS: BP 169/76
[2019-07-29] MEDS: Dyna-Hex 2% Top Sol 2oz TOPIC SCH (21:11)
[2019-07-30] VITALS: BP 156/82
[2019-07-30 04:00] VITALS: BP 117/57
[2019-07-30] MEDS: NovoLOG Insulin Flexpen SUBQ SCH ×4 (05:57→21:00)
[2019-07-30 07:13] LABS: ALANINE AMINOTRANSFERASE 23 U/L (12-78); ALBUMIN 1.3 G/DL (3.4-5.0); ALBUMIN/GLOBULIN RATIO 0.2 (1.0-2.7); ALKALINE PHOSPHATASE 148 U/L (46-116); ASPARTATE AMINO TRANSFERASE 47 U/L (15-37); BILIRUBIN,TOTAL 0.2 MG/DL (0.2-1.0); BLOOD UREA NITROGEN 30 mg/dL (7-18); CALCIUM 8.6 MG/DL (8.5-10.1); CARBON DIOXIDE 17 MMOL/L (21-32); CHLORIDE 119 MMOL/L (98-107); CREATININE 1.1 MG/DL (0.55-1.30); POTASSIUM 3.9 MMOL/L (3.5-5.1); SODIUM 148 MMOL/L (136-145)
[2019-07-30 07:19] LABS: BASOPHILS % (AUTO) 1.2 % (0.0-2.0); HEMATOCRIT 25.3 % (42.0-52.0); HEMOGLOBIN 8.6 G/DL (14.2-18.0); LYMPHOCYTES % (AUTO) 33.4 % (20.0-45.0); MEAN CORPUSCULAR VOLUME 82 FL (80-99); MONOCYTES % (AUTO) 7.5 % (1.0-10.0); NEUTROPHILS % (AUTO) 56.9 % (45.0-75.0); PLATELET COUNT 307 K/UL (150-450); RED BLOOD COUNT 3.07 M/UL (4.70-6.10); RED CELL DISTRIBUTION WIDTH 17.6 % (11.6-14.8); WHITE BLOOD COUNT 10.6 K/UL (4.8-10.8)
[2019-07-30 08:00] VITALS: BP 121/65
--- NOTE | 2019-07-30 09:33 | General Progress Note ---
Assessment/Plan Assessment/Plan: 1. History of HIV. 2.thrombocytopenia 3. Anemia. 4. Sepsis. 5. UTIs with MRSA. 6. Hypertension. 7. COPD. 8. BPH. 9. Sacral decubital ulcerations, stage III. 10. Malnutrition. 11. pancreatitis 12. Dilated IHD CT of abd and pelvic>>>reviewed repeat labs in am improving WBC abx per ID s/p GT placement tolerating GTF GT care heparin sub Q Subjective ROS Limited/Unobtainable: No Allergies: Coded Allergies: No Known Allergies (Unverified , 03/02/19) Subjective confused pulled NGT now replaced Objective Last 24 Hour Vital Signs Date Time Temp Pulse Resp B/P (MAP) Pulse Ox O2 Delivery O2 Flow Rate FiO2 07/30/19 04:00 96.4 91 22 117/57 (77) 94 07/30/19 00:00 98.9 92 21 156/82 (106) 94 07/29/19 21:12 94 169/76 07/29/19 21:00 Room Air 07/29/19 20:00 99.1 94 21 169/76 (107) 94 07/29/19 16:00 98.7 88 17 156/74 (101) 97 07/29/19 14:00 158/70 07/29/19 12:00 98.6 82 17 158/70 (99) 99 07/29/19 09:36 78 133/54 Intake and Output 07/29/19 07/30/19 19:00 07:00 Intake Total 60 ml 860 ml Output Total 1100 ml Balance 60 ml -240 ml Free Water 200 ml Tube Feeding 60 ml 660 ml Output Urine Total 1100 ml # Bowel Movements 3 Laboratory Tests 07/30/19 06:05: White Blood Count 10.6, Red Blood Count 3.07L, Hemoglobin 8.6L, Hematocrit 25.3L , Mean Corpuscular Volume 82, Mean Corpuscular Hemoglobin 27.9, Mean Corpuscular Hemoglobin Concent 33.9, Red Cell Distribution Width 17.6H, Platelet Count 307, Mean Platelet Volume 6.6, Neutrophils (%) (Auto) 56.9, Lymphocytes (%) (Auto) 33.4, Monocytes (%) (Auto) 7.5, Eosinophils (%) (Auto) 1.0, Basophils (%) (Auto) 1.2, Sodium Level 148H, Potassium Level 3.9, Chloride Level 119H, Carbon Dioxide Level 17L, Blood Urea Nitrogen 30H, Creatinine 1.1, Estimat Glomerular Filtration Rate > 60, Glucose Level 113H, Calcium Level 8.6, Total Bilirubin 0.2, Aspartate Amino Transf (AST/SGOT) 47H, Alanine Aminotransferase (ALT/SGPT) 23, Alkaline Phosphatase 148H, Total Protein 7.0, Albumin 1.3L, Globulin 5.7, Albumin/Globulin Ratio 0.2L Height (Feet): 6 Height (Inches): 0.00 Weight (Pounds): 165 General Appearance: no apparent distress EENT: PERRL/EOMI Neck: normal alignment Cardiovascular: normal rate, gallop/S3 Abdomen: normal bowel sounds, non tender, soft Extremities: non-tender Mansoor Interiano MD Jul 30, 2019 09:33
[2019-07-30] MEDS: Carvedilol 12.5mg tab NG SCH ×2 (09:55→21:00)
[2019-07-30] MEDS: Bactrim SS Tab ORAL SCH (09:55)
[2019-07-30] MEDS: Heparin 5000 units/ml inj SUBQ SCH ×2 (10:00→21:24)
--- NOTE | 2019-07-30 11:02 | Infectious Diseases Prog Note ---
Assessment/Plan Assessment/Plan 63yo man admitted with abdominal pain and diarrhea. Afebrile Leukocytosis ( Ch, doubt ID related ) ; fluctuating, Sp ? ALOC, improving FTT SP G tube probable UTI 07/14 UA positive, UCx: Ilda albicans Hx of Diarrhea/colitis- 07/17 CT Abd: Anasarca, with severe edema of the subcutaneous fat, abdominal retroperitoneal fat. There is also trace intraperitoneal fluid and bilateral pleural effusions. No definite acute abdominal process otherwise. No evidence of bowel obstruction. Evidence of rectal fecal incontinence. Nasogastric tube in good position. Retained urine within the bladder lumen, despite the presence of a Macario catheter. Mild bladder wall thickening. Indicate cystitis. Bilateral pleural effusions, as mentioned earlier. Resultant compressive atelectatic changes at both lung bases. Evidence of bullous COPD. Hazy parenchymal opacity may be related to COPD, but could also indicate mild pulmonary edema given other findings of anasarca Severe bilateral hip degenerative changes, also previously demonstrated. 03/02 CT: Suspected colitis with the thickening of the wall the colon. Correlate clinically. Thickening of the wall the urinary bladder. Correlate for cystitis. C diff negative x2 stool cx negative stool o/p x1 negative -Negative: E. histolytica ab, Echinococcus ab pt has refused colonoscopy in the past HIV Screen positive- new diagnosis in February 2019 HIV-1 Abt positive. 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 03/04/19 CD4 180 (7.2%) 06/2009 CD4 143 RPR negative no evid of biliary - US : Mild intrahepatic biliary ductal dilatation. MRI of brain ( could not be done ) COPD. Hypertension. BPH. History of cocaine abuse in the past. Bedbound. PLAN: on Bactrim SS for PCP PPx / SP diflucan #3 07/17 SP Ceftriaxone #3 07/12 SP IV Vanco and Cefepime # / monitor CBC, temp once DCed back to SNF, pt should f/u HIV specialist and start ART, renally adjusted through G tube. Rx options for ART at [facility] [place] limited and given changing renal function, would want to start when renal function is stable and to be followed by a HIV specialist in an outpatient setting. options are truvada(will need to be adjusted to renal fnc)+DTG BID or ritonavir liquid+DRV+truvada( adjust to renal fnc) HIV Genotype: P as of 07/24 DW RN Subjective Allergies: Coded Allergies: No Known Allergies (Unverified , 03/02/19) Subjective afebrile no leukocytosis Objective Vital Signs Last 24 Hour Vital Signs Date Time Temp Pulse Resp B/P (MAP) Pulse Ox O2 Delivery O2 Flow Rate FiO2 07/30/19 09:55 62 121/65 07/30/19 08:00 97.5 62 20 121/65 (83) 97 07/30/19 04:00 96.4 91 22 117/57 (77) 94 07/30/19 00:00 98.9 92 21 156/82 (106) 94 07/29/19 21:12 94 169/76 07/29/19 21:00 Room Air 07/29/19 20:00 99.1 94 21 169/76 (107) 94 07/29/19 16:00 98.7 88 17 156/74 (101) 97 07/29/19 14:00 158/70 07/29/19 12:00 98.6 82 17 158/70 (99) 99 Height (Feet): 6 Height (Inches): 0.00 Weight (Pounds): 165 Laboratory Tests Test 07/30/19 06:05 White Blood Count 10.6 K/UL (4.8-10.8) Red Blood Count 3.07 M/UL (4.70-6.10) L Hemoglobin 8.6 G/DL (14.2-18.0) L Hematocrit 25.3 % (42.0-52.0) L Mean Corpuscular Volume 82 FL (80-99) Mean Corpuscular Hemoglobin 27.9 PG (27.0-31.0) Mean Corpuscular Hemoglobin Concent 33.9 G/DL (32.0-36.0) Red Cell Distribution Width 17.6 % (11.6-14.8) H Platelet Count 307 K/UL (150-450) Mean Platelet Volume 6.6 FL (6.5-10.1) Neutrophils (%) (Auto) 56.9 % (45.0-75.0) Lymphocytes (%) (Auto) 33.4 % (20.0-45.0) Monocytes (%) (Auto) 7.5 % (1.0-10.0) Eosinophils (%) (Auto) 1.0 % (0.0-3.0) Basophils (%) (Auto) 1.2 % (0.0-2.0) Sodium Level 148 MMOL/L (136-145) H Potassium Level 3.9 MMOL/L (3.5-5.1) Chloride Level 119 MMOL/L (98-107) H Carbon Dioxide Level 17 MMOL/L (21-32) L Blood Urea Nitrogen 30 mg/dL (7-18) H Creatinine 1.1 MG/DL (0.55-1.30) Estimat Glomerular Filtration Rate > 60 mL/min (>60) Glucose Level 113 MG/DL (74-106) H Calcium Level 8.6 MG/DL (8.5-10.1) Total Bilirubin 0.2 MG/DL (0.2-1.0) Aspartate Amino Transf (AST/SGOT) 47 U/L (15-37) H Alanine Aminotransferase (ALT/SGPT) 23 U/L (12-78) Alkaline Phosphatase 148 U/L (46-116) H Total Protein 7.0 G/DL (6.4-8.2) Albumin 1.3 G/DL (3.4-5.0) L Globulin 5.7 g/dL Albumin/Globulin Ratio 0.2 (1.0-2.7) L Current Medications Medications (Trade) Dose Ordered Sig/Deborah Route PRN Reason Start Time Stop Time Status Last Admin Dose Admin Acetaminophen (Tylenol) 650 mg Q4H PRN ORAL fever 07/08/19 19:45 08/07/19 19:44 07/25/19 17:26 Allopurinol (allopurinoL) 300 mg DAILY GT 07/27/19 09:00 08/13/19 08:59 07/30/19 09:55 Carvedilol (Coreg) 12.5 mg EVERY 12 HOURS NG 07/22/19 21:00 08/17/19 10:44 07/30/19 09:55 Chlorhexidine Gluconate (Leslie-Hex 2%) 1 applic DAILY@1999 TOPIC 07/19/19 20:00 10/17/19 19:59 07/29/19 21:11 Dextrose (Dextrose 50%) 25 ml Q30M PRN IV Hypoglycemia 07/13/19 14:00 10/11/19 13:59 07/15/19 21:31 Dextrose (Dextrose 50%) 50 ml Q30M PRN IV Hypoglycemia 07/13/19 14:00 10/11/19 13:59 07/14/19 11:33 Heparin Sodium (Porcine) (Heparin 5000 units/ml) 5,000 units EVERY 12 HOURS SUBQ 07/28/19 09:00 09/11/19 08:59 07/30/19 10:00 Hydralazine HCl (Apresoline) 25 mg Q4H PRN GT BP over 160 systolic 07/27/19 12:00 10/25/19 11:59 07/27/19 12:49 Insulin Aspart (NovoLOG) BEFORE MEALS AND HS SUBQ 07/13/19 16:30 10/11/19 16:29 Lansoprazole (Prevacid) 30 mg BID NG 07/19/19 18:00 08/18/19 08:59 07/30/19 09:55 Linaclotide (Linzess) 290 mcg BEFORE BREAKFAST ORAL 07/19/19 06:30 10/17/19 06:29 07/30/19 05:57 Nitroglycerin (Ntg) 0.4 mg Q5M PRN SL Prn Chest Pain 07/08/19 19:45 08/07/19 19:44 Nitroglycerin (Ntg) 1 patch Q24H TDERMAL 07/10/19 13:00 08/09/19 12:59 07/29/19 14:00 Ondansetron HCl (Zofran) 4 mg Q6H PRN IVP Nausea & Vomiting 07/08/19 19:45 08/07/19 19:44 Polyethylene Glycol (Miralax) 17 gm DAILYPRN PRN ORAL Constipation 07/08/19 19:45 08/07/19 19:44 Trimethoprim/ Sulfamethoxazole (Bactrim Single Strength) 1 tab DAILY ORAL 07/13/19 09:00 08/18/19 23:59 07/30/19 09:55 Christine Diaz M.D. Jul 30, 2019 11:02
--- NOTE | 2019-07-30 11:13 | Diagnostic Imaging Report ---
Indication: Shortness of breath Technique: One view of the chest Comparison: 07/26/2019 Findings: There is slightly increased atelectasis at the left lung base. There is some right infrahilar infiltrate which is new or increased since prior exam. There is slight blunting the right costophrenic sulcus, small effusion possible. Normal heart size Impression: Developed right basilar infiltrate, possibly representing pneumonia. Correlate with clinical findings.
[2019-07-30 12:00] VITALS: BP 118/70
--- NOTE | 2019-07-30 13:38 | Nephrology Progress Note ---
Assessment/Plan Problem List: (1) Pancreatitis (2) Hypothermia (3) Hypertension (4) COPD (chronic obstructive pulmonary disease) (5) BPH (benign prostatic hyperplasia) (6) HIV disease (7) Anemia (8) Hypoalbuminemia Assessment Acute renal failure, partly dehydration Anemia Hypoalbuminemia High lipase level of 1999, Pancreatitis UTI Hypothermia Toxic metabolic encephalopathy Sepsis Decubitus skin ulcer Hypothyroid Plan GT tube July 22 Magnesium sulfate IV today Last serum creatinine 1.1 Will discontinue Bicitra 1 L D5W for hypernatremia as needed Trial of albumin and Lasix as needed Patient has Macario catheter so will discontinue Flomax Suggested blood transfusion for low hemoglobin as needed Add Coreg increase the dose accordingly as needed Remains full code Today's labs were reviewed Previously ; patient refusing most of his oral medications, however now has NG tube Will attempt to discontinue what can be changing to intravenous from p.o. and or NG tube route magnesium sulfate and potassium as needed 24-hour urine measurement for total protein results noted unremarkable Add allopurinol 2D echocardiogram results suggestive of ejection fraction of 50% Kidney ultrasound unremarkable Urine studies Anemia work-up noted Monitor renal parameters Antibiotics Avoid nephrotoxic's Per orders Subjective ROS Limited/Unobtainable: No Objective Objective Last 24 Hour Vital Signs Date Time Temp Pulse Resp B/P (MAP) Pulse Ox O2 Delivery O2 Flow Rate FiO2 07/30/19 09:55 62 121/65 07/30/19 08:00 97.5 62 20 121/65 (83) 97 07/30/19 04:00 96.4 91 22 117/57 (77) 94 07/30/19 00:00 98.9 92 21 156/82 (106) 94 07/29/19 21:12 94 169/76 07/29/19 21:00 Room Air 07/29/19 20:00 99.1 94 21 169/76 (107) 94 07/29/19 16:00 98.7 88 17 156/74 (101) 97 07/29/19 14:00 158/70 Intake and Output 07/29/19 07/30/19 19:00 07:00 Intake Total 60 ml 860 ml Output Total 1100 ml Balance 60 ml -240 ml Free Water 200 ml Tube Feeding 60 ml 660 ml Output Urine Total 1100 ml # Bowel Movements 3 Laboratory Tests 07/30/19 06:05: White Blood Count 10.6, Red Blood Count 3.07L, Hemoglobin 8.6L, Hematocrit 25.3L , Mean Corpuscular Volume 82, Mean Corpuscular Hemoglobin 27.9, Mean Corpuscular Hemoglobin Concent 33.9, Red Cell Distribution Width 17.6H, Platelet Count 307, Mean Platelet Volume 6.6, Neutrophils (%) (Auto) 56.9, Lymphocytes (%) (Auto) 33.4, Monocytes (%) (Auto) 7.5, Eosinophils (%) (Auto) 1.0, Basophils (%) (Auto) 1.2, Sodium Level 148H, Potassium Level 3.9, Chloride Level 119H, Carbon Dioxide Level 17L, Blood Urea Nitrogen 30H, Creatinine 1.1, Estimat Glomerular Filtration Rate > 60, Glucose Level 113H, Calcium Level 8.6, Total Bilirubin 0.2, Aspartate Amino Transf (AST/SGOT) 47H, Alanine Aminotransferase (ALT/SGPT) 23, Alkaline Phosphatase 148H, Total Protein 7.0, Albumin 1.3L, Globulin 5.7, Albumin/Globulin Ratio 0.2L Height (Feet): 6 Height (Inches): 0.00 Weight (Pounds): 165 General Appearance: no apparent distress, lethargic Cardiovascular: normal rate Respiratory/Chest: decreased breath sounds Abdomen: distended Objective No change Zander Razo MD Jul 30, 2019 13:38
[2019-07-30] MEDS: Nitroglycerin Patch 0.4mg TDERMAL SCH (13:49)
--- NOTE | 2019-07-30 14:12 | Pulmonology Progress Note ---
Assessment/Plan Problems: (1) Sepsis Assessment & Plan: improved, (2) Altered level of consciousness (3) COPD (chronic obstructive pulmonary disease) (4) Pancreatitis (5) Decubitus skin ulcer (6) Feeding by G-tube (7) HIV disease (8) BPH (benign prostatic hyperplasia) (9) Hypertension Assessment/Plan WBC lower today, in normal range h/h stable, OB stool negative X two absolute CD4 count noted mental status improved wound care iv abx adams culture, VRE positive, BC negative f/u amylase lipase s/p PEG placement, tolerating feeding well dvt prophylaxis. dfc to half-way today Subjective ROS Limited/Unobtainable: Yes Constitutional: Reports: no symptoms HEENT: Repors: no symptoms Allergies: Coded Allergies: No Known Allergies (Unverified , 03/02/19) Objective Last 24 Hour Vital Signs Date Time Temp Pulse Resp B/P (MAP) Pulse Ox O2 Delivery O2 Flow Rate FiO2 07/30/19 13:49 121/65 07/30/19 09:55 62 121/65 07/30/19 08:00 97.5 62 20 121/65 (83) 97 07/30/19 04:00 96.4 91 22 117/57 (77) 94 07/30/19 00:00 98.9 92 21 156/82 (106) 94 07/29/19 21:12 94 169/76 07/29/19 21:00 Room Air 07/29/19 20:00 99.1 94 21 169/76 (107) 94 07/29/19 16:00 98.7 88 17 156/74 (101) 97 Intake and Output 07/29/19 07/30/19 19:00 07:00 Intake Total 60 ml 860 ml Output Total 1100 ml Balance 60 ml -240 ml Free Water 200 ml Tube Feeding 60 ml 660 ml Output Urine Total 1100 ml # Bowel Movements 3 Objective General Appearance: cachectic HEENT: normocephalic Respiratory/Chest: chest wall non-tender, lungs clear Cardiovascular: normal rate, regular rhythm Abdomen: normal bowel sounds, no organomegaly Extremities: no cyanosis Bed bound Laboratory Tests 07/30/19 06:05: White Blood Count 10.6, Red Blood Count 3.07L, Hemoglobin 8.6L, Hematocrit 25.3L , Mean Corpuscular Volume 82, Mean Corpuscular Hemoglobin 27.9, Mean Corpuscular Hemoglobin Concent 33.9, Red Cell Distribution Width 17.6H, Platelet Count 307, Mean Platelet Volume 6.6, Neutrophils (%) (Auto) 56.9, Lymphocytes (%) (Auto) 33.4, Monocytes (%) (Auto) 7.5, Eosinophils (%) (Auto) 1.0, Basophils (%) (Auto) 1.2, Sodium Level 148H, Potassium Level 3.9, Chloride Level 119H, Carbon Dioxide Level 17L, Blood Urea Nitrogen 30H, Creatinine 1.1, Estimat Glomerular Filtration Rate > 60, Glucose Level 113H, Calcium Level 8.6, Total Bilirubin 0.2, Aspartate Amino Transf (AST/SGOT) 47H, Alanine Aminotransferase (ALT/SGPT) 23, Alkaline Phosphatase 148H, Total Protein 7.0, Albumin 1.3L, Globulin 5.7, Albumin/Globulin Ratio 0.2L Current Medications Medications (Trade) Dose Ordered Sig/Deborah Route PRN Reason Start Time Stop Time Status Last Admin Dose Admin Acetaminophen (Tylenol) 650 mg Q4H PRN ORAL fever 07/08/19 19:45 08/07/19 19:44 07/25/19 17:26 Allopurinol (allopurinoL) 300 mg DAILY GT 07/27/19 09:00 08/13/19 08:59 07/30/19 09:55 Carvedilol (Coreg) 12.5 mg EVERY 12 HOURS NG 07/22/19 21:00 08/17/19 10:44 07/30/19 09:55 Chlorhexidine Gluconate (Leslie-Hex 2%) 1 applic DAILY@1999 TOPIC 07/19/19 20:00 10/17/19 19:59 07/29/19 21:11 Dextrose (Dextrose 50%) 25 ml Q30M PRN IV Hypoglycemia 07/13/19 14:00 10/11/19 13:59 07/15/19 21:31 Dextrose (Dextrose 50%) 50 ml Q30M PRN IV Hypoglycemia 07/13/19 14:00 10/11/19 13:59 07/14/19 11:33 Heparin Sodium (Porcine) (Heparin 5000 units/ml) 5,000 units EVERY 12 HOURS SUBQ 07/28/19 09:00 09/11/19 08:59 07/30/19 10:00 Hydralazine HCl (Apresoline) 25 mg Q4H PRN GT BP over 160 systolic 07/27/19 12:00 10/25/19 11:59 07/27/19 12:49 Insulin Aspart (NovoLOG) BEFORE MEALS AND HS SUBQ 07/13/19 16:30 10/11/19 16:29 Lansoprazole (Prevacid) 30 mg BID NG 07/19/19 18:00 08/18/19 08:59 07/30/19 09:55 Linaclotide (Linzess) 290 mcg BEFORE BREAKFAST ORAL 07/19/19 06:30 10/17/19 06:29 07/30/19 05:57 Nitroglycerin (Ntg) 0.4 mg Q5M PRN SL Prn Chest Pain 07/08/19 19:45 08/07/19 19:44 Nitroglycerin (Ntg) 1 patch Q24H TDERMAL 07/10/19 13:00 08/09/19 12:59 07/30/19 13:49 Ondansetron HCl (Zofran) 4 mg Q6H PRN IVP Nausea & Vomiting 07/08/19 19:45 08/07/19 19:44 Polyethylene Glycol (Miralax) 17 gm DAILYPRN PRN ORAL Constipation 07/08/19 19:45 08/07/19 19:44 Trimethoprim/ Sulfamethoxazole (Bactrim Single Strength) 1 tab DAILY ORAL 07/13/19 09:00 08/18/19 23:59 07/30/19 09:55 Rico Chavarria MD Jul 30, 2019 14:12
[2019-07-30] MEDS ORDERED: ALLOPURINOL100 M1 GT (14:14)
[2019-07-30] MEDS ORDERED: BACTRIM SINGLE S1 EA ORAL (14:14)
[2019-07-30] MEDS ORDERED: COREG12.5 MG NG (14:14)
[2019-07-30 16:00] VITALS: BP 102/53
[2019-07-30 20:00] VITALS: BP 111/51
[2019-07-30] MEDS: Dyna-Hex 2% Top Sol 2oz TOPIC SCH (20:00)
[2019-07-31] VITALS: BP 117/56
[2019-07-31 04:00] VITALS: BP 123/60
[2019-07-31] MEDS: NovoLOG Insulin Flexpen SUBQ SCH ×4 (06:17→21:00)
[2019-07-31 08:00] VITALS: BP 116/68
[2019-07-31] MEDS: Carvedilol 12.5mg tab NG SCH ×2 (09:25→21:00)
[2019-07-31] MEDS: Bactrim SS Tab ORAL SCH (09:25)
[2019-07-31] MEDS: Heparin 5000 units/ml inj SUBQ SCH ×2 (09:35→21:00)
[2019-07-31 09:45] LABS: BASOPHILS % (AUTO) 0.6 % (0.0-2.0); EOSINOPHILS % (AUTO) 3.7 % (0.0-3.0); HEMATOCRIT 24.3 % (42.0-52.0); HEMOGLOBIN 8.1 G/DL (14.2-18.0); LYMPHOCYTES % (AUTO) 26.9 % (20.0-45.0); MEAN CORPUSCULAR VOLUME 83 FL (80-99); MONOCYTES % (AUTO) 8.1 % (1.0-10.0); NEUTROPHILS % (AUTO) 60.7 % (45.0-75.0); PLATELET COUNT 341 K/UL (150-450); RED BLOOD COUNT 2.92 M/UL (4.70-6.10); RED CELL DISTRIBUTION WIDTH 16.7 % (11.6-14.8); WHITE BLOOD COUNT 9.3 K/UL (4.8-10.8)
[2019-07-31 09:54] LABS: ANION GAP 13 mmol/L (5-15); BLOOD UREA NITROGEN 31 mg/dL (7-18); CARBON DIOXIDE 16 MMOL/L (21-32); CHLORIDE 120 MMOL/L (98-107); CREATININE 1.2 MG/DL (0.55-1.30); POTASSIUM 3.6 MMOL/L (3.5-5.1); SODIUM 149 MMOL/L (136-145)
[2019-07-31 10:02] LABS: CALCIUM 8.5 MG/DL (8.5-10.1)
--- NOTE | 2019-07-31 10:17 | General Progress Note ---
Assessment/Plan Assessment/Plan: 1. History of HIV. 2.thrombocytopenia 3. Anemia. 4. Sepsis. 5. UTIs with MRSA. 6. Hypertension. 7. COPD. 8. BPH. 9. Sacral decubital ulcerations, stage III. 10. Malnutrition. 11. pancreatitis 12. Dilated IHD CT of abd and pelvic>>>reviewed repeat labs in am improving WBC abx per ID s/p GT placement tolerating GTF GT care heparin sub Q Subjective ROS Limited/Unobtainable: No Allergies: Coded Allergies: No Known Allergies (Unverified , 03/02/19) Subjective confused pulled NGT now replaced Objective Last 24 Hour Vital Signs Date Time Temp Pulse Resp B/P (MAP) Pulse Ox O2 Delivery O2 Flow Rate FiO2 07/31/19 09:25 84 116/68 07/31/19 08:00 98.2 84 18 116/68 (84) 99 07/31/19 04:00 98.8 81 18 123/60 (81) 95 07/31/19 00:00 98.6 82 20 117/56 (76) 95 07/30/19 21:00 81 111/51 07/30/19 21:00 Room Air 07/30/19 20:00 98.8 81 22 111/51 (71) 95 07/30/19 16:00 97.6 89 20 102/53 (69) 94 07/30/19 13:49 121/65 07/30/19 12:00 97.8 83 18 118/70 (86) 97 Intake and Output 07/30/19 07/31/19 19:00 07:00 Intake Total 860 ml 910 ml Output Total 500 ml 700 ml Balance 360 ml 210 ml Free Water 200 ml 250 ml Tube Feeding 660 ml 660 ml Output Urine Total 500 ml 700 ml # Voids 1 Laboratory Tests 07/31/19 09:20: White Blood Count 9.3, Red Blood Count 2.92L, Hemoglobin 8.1L, Hematocrit 24.3L , Mean Corpuscular Volume 83, Mean Corpuscular Hemoglobin 27.8, Mean Corpuscular Hemoglobin Concent 33.3, Red Cell Distribution Width 16.7H, Platelet Count 341, Mean Platelet Volume 6.6, Neutrophils (%) (Auto) 60.7, Lymphocytes (%) (Auto) 26.9, Monocytes (%) (Auto) 8.1, Eosinophils (%) (Auto) 3.7H, Basophils (%) (Auto) 0.6, Sodium Level 149H, Potassium Level 3.6, Chloride Level 120H, Carbon Dioxide Level 16L, Anion Gap 13, Blood Urea Nitrogen 31H, Creatinine 1.2, Estimat Glomerular Filtration Rate > 60, Glucose Level 110H, Calcium Level 8.5 Height (Feet): 6 Height (Inches): 0.00 Weight (Pounds): 165 General Appearance: no apparent distress EENT: normal ENT inspection Neck: supple Cardiovascular: normal rate Respiratory/Chest: decreased breath sounds Abdomen: normal bowel sounds, non tender, soft Extremities: non-tender Mansoor Interiano MD Jul 31, 2019 10:17
[2019-07-31 12:00] VITALS: BP 120/78
[2019-07-31] MEDS: Nitroglycerin Patch 0.4mg TDERMAL SCH (13:14)
--- NOTE | 2019-07-31 13:26 | Pulmonology Progress Note ---
Assessment/Plan Problems: (1) Sepsis Assessment & Plan: improved, (2) Altered level of consciousness (3) COPD (chronic obstructive pulmonary disease) (4) Pancreatitis (5) Decubitus skin ulcer (6) Feeding by G-tube (7) HIV disease (8) BPH (benign prostatic hyperplasia) (9) Hypertension Assessment/Plan WBC lower today, in normal range h/h stable, OB stool negative X two absolute CD4 count noted mental status improved wound care iv abx adams culture, VRE positive, BC negative f/u amylase lipase s/p PEG placement, tolerating feeding well dvt prophylaxis. try to dc to shelter today Subjective ROS Limited/Unobtainable: No Constitutional: Reports: no symptoms HEENT: Repors: no symptoms Respiratory: Reports: no symptoms Allergies: Coded Allergies: No Known Allergies (Unverified , 03/02/19) Objective Last 24 Hour Vital Signs Date Time Temp Pulse Resp B/P (MAP) Pulse Ox O2 Delivery O2 Flow Rate FiO2 07/31/19 13:14 120/78 07/31/19 12:00 98.3 80 18 120/78 (92) 99 07/31/19 09:25 84 116/68 07/31/19 09:00 Room Air 07/31/19 08:00 98.2 84 18 116/68 (84) 99 07/31/19 04:00 98.8 81 18 123/60 (81) 95 07/31/19 00:00 98.6 82 20 117/56 (76) 95 07/30/19 21:00 81 111/51 07/30/19 21:00 Room Air 07/30/19 20:00 98.8 81 22 111/51 (71) 95 07/30/19 16:00 97.6 89 20 102/53 (69) 94 07/30/19 13:49 121/65 Intake and Output 07/30/19 07/31/19 19:00 07:00 Intake Total 860 ml 970 ml Output Total 500 ml 700 ml Balance 360 ml 270 ml Free Water 200 ml 250 ml Tube Feeding 660 ml 720 ml Output Urine Total 500 ml 700 ml # Voids 1 Objective General Appearance: cachectic HEENT: normocephalic Respiratory/Chest: chest wall non-tender, lungs clear Cardiovascular: normal rate, regular rhythm Abdomen: normal bowel sounds, no organomegaly Extremities: no cyanosis Bed bound Laboratory Tests 07/31/19 09:20: White Blood Count 9.3, Red Blood Count 2.92L, Hemoglobin 8.1L, Hematocrit 24.3L , Mean Corpuscular Volume 83, Mean Corpuscular Hemoglobin 27.8, Mean Corpuscular Hemoglobin Concent 33.3, Red Cell Distribution Width 16.7H, Platelet Count 341, Mean Platelet Volume 6.6, Neutrophils (%) (Auto) 60.7, Lymphocytes (%) (Auto) 26.9, Monocytes (%) (Auto) 8.1, Eosinophils (%) (Auto) 3.7H, Basophils (%) (Auto) 0.6, Sodium Level 149H, Potassium Level 3.6, Chloride Level 120H, Carbon Dioxide Level 16L, Anion Gap 13, Blood Urea Nitrogen 31H, Creatinine 1.2, Estimat Glomerular Filtration Rate > 60, Glucose Level 110H, Calcium Level 8.5 Current Medications Medications (Trade) Dose Ordered Sig/Deborah Route PRN Reason Start Time Stop Time Status Last Admin Dose Admin Acetaminophen (Tylenol) 650 mg Q4H PRN ORAL fever 07/08/19 19:45 08/07/19 19:44 07/25/19 17:26 Allopurinol (allopurinoL) 300 mg DAILY GT 07/27/19 09:00 08/13/19 08:59 07/31/19 09:25 Carvedilol (Coreg) 12.5 mg EVERY 12 HOURS NG 07/22/19 21:00 08/17/19 10:44 07/31/19 09:25 Chlorhexidine Gluconate (Leslie-Hex 2%) 1 applic DAILY@1999 TOPIC 07/19/19 20:00 10/17/19 19:59 07/29/19 21:11 Dextrose (Dextrose 50%) 25 ml Q30M PRN IV Hypoglycemia 07/13/19 14:00 10/11/19 13:59 07/15/19 21:31 Dextrose (Dextrose 50%) 50 ml Q30M PRN IV Hypoglycemia 07/13/19 14:00 10/11/19 13:59 07/14/19 11:33 Heparin Sodium (Porcine) (Heparin 5000 units/ml) 5,000 units EVERY 12 HOURS SUBQ 07/28/19 09:00 09/11/19 08:59 07/31/19 09:35 Hydralazine HCl (Apresoline) 25 mg Q4H PRN GT BP over 160 systolic 07/27/19 12:00 10/25/19 11:59 07/27/19 12:49 Insulin Aspart (NovoLOG) BEFORE MEALS AND HS SUBQ 07/13/19 16:30 10/11/19 16:29 Lansoprazole (Prevacid) 30 mg BID NG 07/19/19 18:00 08/18/19 08:59 07/31/19 09:25 Linaclotide (Linzess) 290 mcg BEFORE BREAKFAST ORAL 07/19/19 06:30 10/17/19 06:29 07/31/19 06:17 Nitroglycerin (Ntg) 0.4 mg Q5M PRN SL Prn Chest Pain 07/08/19 19:45 08/07/19 19:44 Nitroglycerin (Ntg) 1 patch Q24H TDERMAL 07/10/19 13:00 08/09/19 12:59 07/31/19 13:14 Ondansetron HCl (Zofran) 4 mg Q6H PRN IVP Nausea & Vomiting 07/08/19 19:45 08/07/19 19:44 Polyethylene Glycol (Miralax) 17 gm DAILYPRN PRN ORAL Constipation 07/08/19 19:45 08/07/19 19:44 Trimethoprim/ Sulfamethoxazole (Bactrim Single Strength) 1 tab DAILY ORAL 07/13/19 09:00 08/18/19 23:59 07/31/19 09:25 Rico Chavarria MD Jul 31, 2019 13:25
[2019-07-31 16:00] VITALS: BP 122/78
--- NOTE | 2019-07-31 18:13 | Nephrology Progress Note ---
Assessment/Plan Problem List: (1) Pancreatitis (2) Hypothermia (3) Hypertension (4) COPD (chronic obstructive pulmonary disease) (5) BPH (benign prostatic hyperplasia) (6) HIV disease (7) Anemia (8) Hypoalbuminemia Assessment Acute renal failure, partly dehydration Anemia Hypoalbuminemia High lipase level of 1999, Pancreatitis UTI Hypothermia Toxic metabolic encephalopathy Sepsis Decubitus skin ulcer Hypothyroid Plan Today's lab reviewed GT tube July 22 Magnesium sulfate IV as needed Last serum creatinine 1.1 Will discontinue Bicitra 1 L D5W for hypernatremia as needed Trial of albumin and Lasix as needed Patient has Macario catheter so will discontinue Flomax Suggested blood transfusion for low hemoglobin as needed Add Coreg increase the dose accordingly as needed Remains full code Today's labs were reviewed Previously ; patient refusing most of his oral medications, however now has NG tube Will attempt to discontinue what can be changing to intravenous from p.o. and or NG tube route magnesium sulfate and potassium as needed 24-hour urine measurement for total protein results noted unremarkable Add allopurinol 2D echocardiogram results suggestive of ejection fraction of 50% Kidney ultrasound unremarkable Urine studies Anemia work-up noted Monitor renal parameters Antibiotics Avoid nephrotoxic's Per orders Subjective ROS Limited/Unobtainable: No Interval Events/Complaints Patient seen at 9 AM today. Late note entry. Constitutional: Reports: malaise, weakness Objective Objective Last 24 Hour Vital Signs Date Time Temp Pulse Resp B/P (MAP) Pulse Ox O2 Delivery O2 Flow Rate FiO2 07/31/19 16:00 98.5 20 20 122/78 (93) 98 07/31/19 13:14 120/78 07/31/19 12:00 98.3 80 18 120/78 (92) 99 07/31/19 09:25 84 116/68 07/31/19 09:00 Room Air 07/31/19 08:00 98.2 84 18 116/68 (84) 99 07/31/19 04:00 98.8 81 18 123/60 (81) 95 07/31/19 00:00 98.6 82 20 117/56 (76) 95 07/30/19 21:00 81 111/51 07/30/19 21:00 Room Air 07/30/19 20:00 98.8 81 22 111/51 (71) 95 Intake and Output 07/30/19 07/31/19 19:00 07:00 Intake Total 860 ml 970 ml Output Total 500 ml 700 ml Balance 360 ml 270 ml Free Water 200 ml 250 ml Tube Feeding 660 ml 720 ml Output Urine Total 500 ml 700 ml # Voids 1 Laboratory Tests 07/31/19 09:20: White Blood Count 9.3, Red Blood Count 2.92L, Hemoglobin 8.1L, Hematocrit 24.3L , Mean Corpuscular Volume 83, Mean Corpuscular Hemoglobin 27.8, Mean Corpuscular Hemoglobin Concent 33.3, Red Cell Distribution Width 16.7H, Platelet Count 341, Mean Platelet Volume 6.6, Neutrophils (%) (Auto) 60.7, Lymphocytes (%) (Auto) 26.9, Monocytes (%) (Auto) 8.1, Eosinophils (%) (Auto) 3.7H, Basophils (%) (Auto) 0.6, Sodium Level 149H, Potassium Level 3.6, Chloride Level 120H, Carbon Dioxide Level 16L, Anion Gap 13, Blood Urea Nitrogen 31H, Creatinine 1.2, Estimat Glomerular Filtration Rate > 60, Glucose Level 110H, Calcium Level 8.5 Height (Feet): 6 Height (Inches): 0.00 Weight (Pounds): 165 General Appearance: no apparent distress, lethargic Cardiovascular: normal rate Respiratory/Chest: decreased breath sounds Abdomen: distended, other - PEG in place Objective No change Zander Razo MD Jul 31, 2019 18:13
[2019-07-31] MEDS: Dyna-Hex 2% Top Sol 2oz TOPIC SCH (20:00)
--- NOTE | 2019-08-01 13:23 | Discharge Summary ---
Discharge Summary Discharge Summary _ DATE OF ADMISSION: 07/08/2019 DATE OF DISCHARGE: 07/31/2019 DISCHARGED BY: REASON FOR ADMISSION: 63 years old male, resident of detention facility, with past medical history of HIV, recently diagnosed in February 2019, COPD, BPH, sacral decubitus ulcer stage III, anemia, recent sepsis, presented to emergency room due to altered level of consciousness. Blood sugar was stable in the field. Vital signs reveal hypothermia with initial temperature 90.5 . Laboratory work-up revealed leukocytosis WBC 19.9, hemoglobin 9.2, hematocrit 28.2, platelet count 111. BUN 40, creatinine 2.6. Glucose 94. Lactic acid 0.9. AST 41, ALT 20, lipase >2,000. CRP 11.4 Troponin 0.039 , pro BNP 1271 . EKG revealed sinus rhythm with some PVC . Albumin 1.7 . Urinalysis revealed no evidence of urinary tract infection. Urine toxicology screen was negative. Chest x-ray demonstrated atelectasis, but no acute cardiopulmonary pathology. Patient was slowly rewarmed , started on IV hydration , pancultured, and started on empiric antibiotic. Patient admitted with hypothermia, altered level of consciousness, renal failure, pancreatitis , sepsis . CONSULTANTS: ID specialist Dr. Rivas GI specialist Dr. Interiano security ambassador Dr. Razo pain specialist Dr. Mendoza HOSPITAL COURSE: Patient admitted to telemetry floor and started on empiric antibiotics, IV fluids and was kept n.p.o. GI, nephrology and ID specialist closely followed. DVT prophylaxis provided. Supplemental oxygen provided and titrated to keep pulse oximetry above 92%. Nebulizing treatment bronchodilator provided as needed. Patient was followed-up with a chest x-ray , which showed decreased atelectasis at the left lung base. Blood cultures were negative. Urine culture revealed Ilda. Repeated blood cultures were negative as well. Patient antibiotic course in the hospital. Initial leukocytosis and hypothermia resolved. Patient refused most of medications and food. Patient undergone swallow evaluation, which revealed dysphagia and risk for silent aspiration. GI specialist followed. Abdominal ultrasound demonstrated mild intrahepatic biliary ductal dilatation. Contracted gallbladder. Possible medical renal disease. Unremarkable pancreas. Subsequently CT scan of the abdomen and pelvis was done, which revealed anasarca with severe edema of the subcutaneous fat, abdominal retroperitoneal fat. No definite acute abdominal process otherwise. No evidence of bowel obstruction. Evidence of rectal fecal incontinence. Bilateral pleural effusion with resultant compressive atelectasis at both lung bases. Evidence of bullous COPD. The liver, bile ducts, pancreas, spleen, adrenals, kidneys are all unremarkable. Lipase and amylase were trending : lipase down to 1420 ,amylase down to 184. Patient undergone EGD with placement of gastrostomy feeding tube on 07/22 due to dysphagia and failure to thrive. During the procedure patient was found to have gastritis. PEG was successfully placed. Patient started on tube feeding with tube feeding formula , goal rate and protein supplement as per registered nurse ambulatory recommendation. G-tube site care provided. Strict aspiration reflux precaution maintained. Patient was able to tolerate tube feeding. Bowel regimen instituted. GI prophylaxis provided. Hepatitis panel was negative. CD4 143. RPR negative. Patient was on Bactrim for PCP prophylaxis. ID specialist recommended when back in the [facility] , follow-up with HIV specialist to start therapy renally adjusted through G-tube. Treatment choices at this hospital were very limited , and given chronic kidney disease, ID specialist recommended to start therapy when renal function stabilized. HIV hand genotype was ordered and still pending at the time of this dictation. Renal parameters and electrolytes were closely monitored. Electrolytes corrected as needed, and nephrotoxins were avoided. Prior to discharge BUN from 40 down to 31 and creatinine from 2.3 down to 1.3. Acute kidney injury resolved. Patient does have evidence of chronic kidney disease as evidenced on imaging. Medical Records Director recommended avoid nephrotoxic in future. Pain management provided as per pain specialist recommendation. Hemoglobin and hematocrit were closely monitored with goal to keep hemoglobin above 7. While in the hospital patient undergone transfusion of 2 units of packed red blood cells for hemoglobin 6.9. Prior to discharge hemoglobin 8.1 , hematocrit 24.3. Stool for occult blood was negative x2. Anemia work-up revealed evidence of anemia of chronic disease , ferritin 545. Platelet count up to normal prior to discharge. Wound care for sacral decubitus ulcer stage III provided as per wound nurse recommendation. Continue wound care at the facility. Patient clinically stabilized and was ready for transfer back to detention facility for continuation of care FINAL DIAGNOSES: Sepsis Toxic metabolic encephalopathy Fungal UTI Bullous COPD Pancreatitis HIV disease, newly diagnosed in February 2019/ CD4 143-AIDS Dysphagia, status post PEG placement Hypertension BPH SKINNY on CKD Electrolytes imbalance Protein calorie malnutrition Decubitus skin ulcer stage III , present on admission Thrombocytopenia Anemia DISCHARGE MEDICATIONS: See Medication Reconciliation list. DISCHARGE INSTRUCTIONS: Patient was discharged to the detention facility. Follow up with medical doctor at the facility. Luciana Camarillo NP Aug 01, 2019 13:23
== END 2019-07-31 20:20 | DRG 974 ==
LOC: EDBD 17:18 → EMR 17:40 → 4E 18:12 → EDBEDREQ 19:16
PROC: 30233N1 Transfusion of Nonautologous Red Blood Cells into Peripheral Vein, Percutaneous Approach (ICD-10-PCS; principal; 2019-07-18)
PROC: 0DH63UZ Insertion of Feeding Device into Stomach, Percutaneous Approach (ICD-10-PCS; 2019-07-23 10:45)
DX: A41.9 Sepsis, unspecified organism (principal); L89.893 Pressure ulcer of other site, stage 3; B20 Human immunodeficiency virus [HIV] disease; G92 Toxic encephalopathy; K85.90 Acute pancreatitis without necrosis or infection, unspecified; N17.9 Acute kidney failure, unspecified; B37.49 Other urogenital candidiasis; E46 Unspecified protein-calorie malnutrition; N40.0 Benign prostatic hyperplasia without lower urinary tract symptoms; J44.9 Chronic obstructive pulmonary disease, unspecified; R13.10 Dysphagia, unspecified; I12.9 Hypertensive chronic kidney disease with stage 1 through stage 4 chronic kidney disease, or unspecified chronic kidney disease; N18.9 Chronic kidney disease, unspecified; D69.6 Thrombocytopenia, unspecified; D64.9 Anemia, unspecified; E86.0 Dehydration; F14.11 Cocaine abuse, in remission; K29.70 Gastritis, unspecified, without bleeding; R68.0 Hypothermia, not associated with low environmental temperature; Z86.14 Personal history of Methicillin resistant Staphylococcus aureus infection; Z91.14 Patient's other noncompliance with medication regimen; I25.89 Other forms of chronic ischemic heart disease; R62.7 Adult failure to thrive
CPT/HCPCS: 36415; 71045; 74018; 74176; 76700; 76770; 80048; 80053; 80061; 80202; 80307; 81001; 81050; 82140; 82150; 82270; 82533; 82550; 82607; 82728; 82746; 82962; 82977; 83036; 83540; 83550; 83605; 83615; 83690; 83735; 83880; 83930; 83935; 84100; 84156; 84300; 84439; 84443; 84481; 84484; 84550; 85007; 85025; 85379; 85610; 85651; 85730; 86140; 86360; 86705; 86709; 86803; 86850; 86900; 86901; 86920; 87040; 87081; 87086; 87340; 87535; 89050; 93005; 93306; 94003; 94150; 96361; 96365; 96368; 99291; J1815; J7030; J8499